=== PATIENT | female | born 1940 | race Caucasian/White ===

== ENCOUNTER → 2018-12-19 16:15 | Outpatient (CLI) | payer MEDICARE, SELFPAY ==
--- NOTE | 2018-12-19 16:30 | RAD_ITS ---
STUDY: X-RAY - ABDOMEN/PELVIS REASON FOR EXAM: Female, 78 years old. Fecal impaction TECHNIQUE: AP supine and upright views of the abdomen and pelvis. COMPARISON: None. FINDINGS: Normal visualized lung bases. Nondistended stomach and small bowel. Mild increase proximal colonic bowel gas and stool with a stool-filled left and distal colon. A ring of sutures present in the central lower pelvis consistent with rectosigmoid anastomosis. The anastomosis appears to be stool filled and approximately 2.7 cm in diameter. There is a no other bowel anastomosis in the right lower quadrant. Negative for hepatomegaly. Vascular calcifications. Normal soft tissue structures. Normal visualized osseous structures. RAD/Abd Inc Decub and/or Erect IMPRESSION: Mild increase proximal colonic bowel gas and stool with a stool-filled left in distal colon. There appears to be a rectosigmoid anastomosis which is stool-filled and approximately 2.7 cm in diameter. Additional anastomosis of the right lower quadrant. Electronically Signed: Rosetta Pa MD at 16:47 EDT , Service support ,
[2018-12-19 17:50] LABS: Absolute Lymphocyte Count 1.49 X10^3/ul (0.83-4.51); Absolute Neutrophil Count 3.6 X10^3/uL (2.0-7.7); Basophil# 0.02 X10^3/uL; Basophil% 0.3 % (0-1); Eosinophil# 0.11 X10^3/uL; Eosinophils% 1.9 % (0-5); Hematocrit 42.7 % (37-47); Lymphocyte # 1.49 X10^3/ul (4.0); Lymphocyte % 25.9 % (19-41); Mean Corp Hgb Conc 32.8 g/gl (32-36); Mean Corpuscular Volume 91.4 fL (81-99); Mean Platelet Vol. 9.7 fl (6.2-12.0); Monocyte# 0.52 X10^3/uL; Neutrophil % 62.6 % (47-70); Platelet Count 295 K/mm3 (150-450); RBC Distribution Width CV 14.4 % (11.6-14.6); Red Blood Count 4.67 M/mm3 (4.2-5.4); White Blood Count 5.8 K/mm3 (4.4-11.0)
[2018-12-19 17:58] LABS: POSITIVE COUNT NO; POSITIVE DIFFERENTIAL NO; POSITIVE MORPHOLOGY NO
[2018-12-19 17:59] LABS: Vitamin D,25 Hydroxy 13.6 ng/mL (29.95-100.01)
[2018-12-19 18:08] LABS: Albumin, Serum 3.6 g/dL (3.2-5.0); BUN 13 mg/dL (7-18); BUN/Creat Ratio 15.9 RATIO (10-20); Creatinine, Serum 0.82 mg/dL (0.55-1.02); EST Glomerular Filtration Rate 72 mL/min (>60); Est Glom Filt Rate - Afr Amer 87 mL/min (>60); Glucose 83 mg/dL (74-106); Protein, Total 7.6 g/dL (6.4-8.2)
[2018-12-19 18:09] LABS: ALB/GLOB Ratio 0.9 RATIO (0.9-2.4); AST(SGOT) 17 U/L (15-37); Alanine Aminotransfer ALT/SGPT 20 U/L (13-56); Alkaline Phosphatase 88 U/L (45-117); Anion Gap 7 (5-15); Calcium,Total 8.9 mg/dL (8.5-10.1); Chloride 104 mmol/L (98-107); Cholesterol 243 mg/dL (200); High Density Lipoprotein 68 mg/dL; Potassium 2.9 mmol/L (3.5-5.1); Sodium Level 138 mmol/L (136-145); Thyroid Stim Hormone (TSH) 4.16 uIU/mL (0.358-3.74); Triglycerides 130 mg/dL; Very Low Density Lipoprotein 26 mg/dL (5-40)
== END ==
PROVIDERS: Family Provider Family Medicine Geriatric Medicine; PCP Family Medicine Geriatric Medicine; Referring Provider Family Medicine Geriatric Medicine; Visit Provider Family Medicine Geriatric Medicine
DX: K56.41 Fecal impaction (principal); E55.9 Vitamin D deficiency, unspecified; E78.5 Hyperlipidemia, unspecified; R53.83 Other fatigue
CPT/HCPCS: 36415; 74019; 80053; 80061; 82306; 84443; 85025

== ENCOUNTER → 2018-12-27 11:11 | Outpatient (CLI) | payer MEDICARE, SELFPAY ==
[2018-12-27 13:48] LABS: Anion Gap 7 (5-15); BUN 12 mg/dL (7-18); BUN/Creat Ratio 12.6 RATIO (10-20); Calcium,Total 9.1 mg/dL (8.5-10.1); Chloride 105 mmol/L (98-107); Creatinine, Serum 0.96 mg/dL (0.55-1.02); EST Glomerular Filtration Rate 60 mL/min (>60); Est Glom Filt Rate - Afr Amer 72 mL/min (>60); Glucose 93 mg/dL (74-106); Potassium 3.6 mmol/L (3.5-5.1); Sodium Level 138 mmol/L (136-145)
== END ==
PROVIDERS: Family Provider Family Medicine Geriatric Medicine; PCP Family Medicine Geriatric Medicine; Visit Provider Family Medicine Geriatric Medicine
DX: E87.6 Hypokalemia (principal)
CPT/HCPCS: 36415; 80048

== ENCOUNTER → 2019-01-20 14:17 | Outpatient (CLI) | payer MEDICARE, SELFPAY ==
[2019-01-20 15:14] LABS: Thyroid Stim Hormone (TSH) 5.33 uIU/mL (0.358-3.74)
== END ==
PROVIDERS: Family Provider Family Medicine Geriatric Medicine; PCP Family Medicine Geriatric Medicine; Visit Provider Family Medicine Geriatric Medicine
DX: E03.9 Hypothyroidism, unspecified (principal)
CPT/HCPCS: 36415; 84443

== ENCOUNTER → 2019-01-30 12:14 | Outpatient (CLI) | payer MEDICARE, SELFPAY ==
--- NOTE | 2019-01-30 12:15 | BI_ITS ---
MAMMOGRAPHY - BILATERAL SCREENING REASON FOR EXAM: Female, 78 years old. Routine annual screening examination. PERTINENT HISTORY: Non-contributory. TECHNIQUE: Digital bilateral breast evangelist (3D mammographic acquisition) in the CC and MLO projections. 2-D mediolateral oblique (MLO) and craniocaudad (CC) views of both breasts were obtained. CAD: Full Field Digital Mammography with Computer Added Detection was performed. COMPARISON: None. Baseline examination. FINDINGS: Breast Composition: The breasts are heterogeneously dense, which may obscure small masses. 1 cm x 0.9 cm nodular density seen in the superior lateral retroareolar region of the right breast. Correlation with ultrasound is recommended. Small benign-appearing bilateral axillary lymph. No other significant abnormalities are identified. BI/SCREENING MAMM (CAD), BILAT IMPRESSION: 1 cm x 0.9 cm nodular density in the superior lateral retroareolar region of the right breast as described. Correlation with ultrasound is recommended. ASSESSMENT CATEGORY: BIRADS Category 0: Incomplete. Need additional imaging evaluation. A letter regarding these results will be sent to the patient by the facility within 30 days. Approximately 10% of breast cancers are not detected by mammography. A normal mammogram should not delay biopsy of a clinically suspicious abnormality. [id number] Electronically Signed: Patrice Houser, at 14:54 EDT , Service support ,
--- NOTE | 2019-01-30 12:22 | BD_ITS ---
STUDY: DUAL ENERGY X-RAY ABSORPTIOMETRY / DXA REASON FOR EXAM: Female, 78 years old. The patient is postmenopausal. Loss of height. TECHNIQUE: Bone Mineral Density (BMD) measurements of lumbar spine and bilateral hips were obtained. COMPARISON: None. FINDINGS: Lumbar Spine (L1-L4): g/cm2 (1.266) / T-score (0.8) / Z-score (2.7) Findings are suggestive of normal bone density with a low fracture risk. Left Femur Total: g/cm2 (1.151) / T-score (1.1) / Z-score (3.1) Left Femoral Neck: g/cm2 (1.061) / T-score (0.2) / Z-score (2.3) Right Femur Total: g/cm2 (1.104) / T-score (0.8) / Z-score (2.8) Right Femoral Neck: g/cm2 (0.973) / T-score (-0.5) / Z-score (1.7) BD/Dexa Bone Density Study IMPRESSION: The patient is considered normal as outlined below according to World Matt Organization (WHO) criteria with a low fracture risk. Reference Information: The T-score is the number of standard deviations above or below the standard which is normal for young adults at their peak bone mineral density. The World Health Organization (WHO) interprets the T-scores as follows: Above -1 Normal bone density Between -1 and -2.5 Osteopenia Equal to / or below -2.5 Osteoporosis As a practical clinical guideline, osteopenia may be graded as follows: Mild -1 through -1.5 Moderate -1.6 through -2.0 Severe -2.1 through -2.4 The Z-score is the number of standard deviations above or below age-matched controls. A Z-score of less than -1.5 would be considered abnormal. References: 1. NIH Osteoporosis and Related Bone Diseases http://www.osteo.org 2. International Society for Clinical Densitometry http://www.iscd.org 3. National Osteoporosis Foundation http://www.nof.org Electronically Signed: Patrice Houser, at 13:34 EDT , Service support ,
== END ==
PROVIDERS: Family Provider Family Medicine Geriatric Medicine; PCP Family Medicine Geriatric Medicine; Referring Provider Family Medicine Geriatric Medicine; Visit Provider Family Medicine Geriatric Medicine
DX: Z78.0 Asymptomatic menopausal state (principal); Z12.31 Encounter for screening mammogram for malignant neoplasm of breast
CPT/HCPCS: 77063; 77067; 77080

== ENCOUNTER → 2019-02-05 10:55 | Outpatient (CLI) | payer MEDICARE, SELFPAY ==
--- NOTE | 2019-02-05 10:57 | US_ITS ---
STUDY: ULTRASOUND BREAST - RIGHT REASON FOR EXAM: Female, 78 years old. Abnormal screening mammogram. TECHNIQUE: Axial and longitudinal images of the RIGHT breast were performed with a high resolution ultrasound transducer. COMPARISON: Comparison is made with prior mammogram dated January 30, 2019. FINDINGS: RIGHT Breast: The mammographic abnormality corresponds to a 1.1 cm x 1.1 cm x 0.9 cm slightly lobulated hypoechoic nodule at the 10:00 position of the breast at 2 cm from the nipple. Increased vascularity is seen. A biopsy is recommended. US/Breast Limited Unilateral IMPRESSION: 1.1 cm x 1.1 cm x 0.9 cm slightly lobulated hypoechoic nodule at the 10:00 position of the breast at 2 cm from nipple. Increased vascularity is seen. A biopsy is recommended. ASSESSMENT CATEGORY: BIRADS Category 4: Suspicious - Biopsy Should Be Considered. A letter regarding these results will be sent to the patient by the facility within 30 days. Electronically Signed: Patrice Houser, at 13:07 EDT , Service support ,
== END ==
PROVIDERS: Family Provider Family Medicine Geriatric Medicine; PCP Family Medicine Geriatric Medicine; Referring Provider Family Medicine Geriatric Medicine; Visit Provider Family Medicine Geriatric Medicine
DX: N63.10 Unspecified lump in the right breast, unspecified quadrant (principal)
CPT/HCPCS: 76642

== ENCOUNTER → 2019-02-14 10:57 | Outpatient (CLI) | payer MEDICARE, SELFPAY ==
--- NOTE | 2019-02-14 09:30 | BRBX_PTH ---
PATIENT: TRICIA GAN LOC: [facility] U#:[id number] AGE/SX: 85/F ROOM: RE02/14/[address]: Dr. Rajat Cavazos MD : 1940 BED: DIS: SPEC #: [id number] RECD: 02/14/19 10:10 STATUS: BHARGAV POLY #: [id number] JANINE: 02/14/19 09:[address]: Rajat Cavazos DEPT: SURGICAL PATHOLOGY RECD BY: Tonia Riggs ENTERED: 02/14/19 14:02 SP TYPE: BREAST BX OTHR DR: Dr. Winston Flower MD Tissues: Right breast, NOS Procedures: Surgery Specimen Level IV HEADER OPERATION: Ultrasound-guided right breast mammotome biopsy PRE-OP DIAGNOSIS: Abnormal mammogram TISSUE SUBMITTED: Right breast biopsy MICROSCOPIC DIAGNOSIS Right breast, ultrasound-guided mammotome core biopsy: Intraductal papilloma. Negative for atypia or malignancy. See comment. ROSARIO:tonio 02/17/19 COMMENT Correlation with clinical, radiologic findings and appropriate follow up are necessary. Case has been reviewed in consultation with Dr. Nelson who concurs with the above diagnosis. IDC:AM MICROSCOPIC DESCRIPTION Slides are reviewed. GROSS DESCRIPTION Received in fixative is one container labeled with the patient's name and designated right breast. The specimen consists of multiple elongated fragments of graf-yellow fibroadipose tissue that in aggregate measure 1 x 0.5 x 0.1 cm. The entire specimen is submitted in one cassette. / ROSARIO:tonio 02/14/19 TC:5 CPT: 53714
[2019-02-14 10:27] VITALS: BMI 25.4
== END ==
PROVIDERS: Family Provider Family Medicine Geriatric Medicine; PCP Family Medicine Geriatric Medicine; Referring Provider Surgery; Visit Provider Surgery
DX: R92.8 Other abnormal and inconclusive findings on diagnostic imaging of breast (principal)
CPT/HCPCS: 88305

== ENCOUNTER 2019-02-24 07:15 | Day surgery (SDC) | payer MEDICARE, SELFPAY ==
--- NOTE | 2019-02-20 02:27 | HP_ITS ---
Intake Vital Signs 02/20/19 Height 5 ft 10 in 02/20/19 Weight: 170 lb 02/20/19 Body Mass Index (BMI) 24.3 02/20/19 Blood Pressure 153/79 H 02/20/19 Blood Pressure Location Rt brachial 02/20/19 Blood Pressure Position Sitting 02/20/19 Respiratory Rate 14 02/20/19 Pulse Rate 80 02/20/19 Pulse Source Monitor 02/20/19 Temperature 98.2 F 02/20/19 Temperature Source Oral 02/20/19 Pulse Ox 100 02/20/19 Oxygen Delivery Method room air 02/20/19 Body Mass Index (BMI) 25.4 Intake Visit Reasons: PO Rt Breast Bx 02/14 City Editor Required: No Is patient in pain?: No Allergies Sulfa (Sulfonamide Antibiotics) Allergy (Severe, Verified 02/20/19 14:04) passes out Medications cholecalciferol (vitamin D3) 1,000 unit capsule 1,000 unit PO DAILY 02/11/19 [History Confirmed 02/20/19] levothyroxine 50 mcg capsule 50 mcg PO DAILY 02/11/19 [History Confirmed 02/20/19] multivitamin capsule 1 cap PO DAILY 02/11/19 [History Confirmed 02/20/19] potassium chloride ER 10 mEq capsule,extended release 10 meq PO DAILY 02/11/19 [History Confirmed 02/20/19] [facility] Medical History Thyroid disease (Acute) Abnormal mammogram of right breast (Acute) Surgical History Hx of right breast biopsy (Acute) History of left cataract surgery (Acute) History of tonsillectomy (Acute) History of colectomy (Acute) Family History Mother No problems noted. Father No problems noted. Social History Smoking Status: Never smoker alcohol intake: never substance use type: does not use HPI HPI HPI: TRICIA GAN, is a 78 F who presents to the office today for HPI HPI Surgical H&P: Yes HPI: TRICIA GAN, is a 78 F who presents to the office today for for follow-up from an ultrasound-guided hand-held mammotome breast biopsy completed on her right breast on 02/14/2019. This came back as an intraductal papilloma and was negative for atypia and malignancy. She herself is only noted minimal bruising and minimal discomfort. ROS General General: Yes fatigue and colon cancer; no weight change, appetite, breast cancer or weakness HEENT HEENT: Yes eye surgery; no difficulty swallowing, eye injury, swollen glands or hoarseness Endo Endocrine: Yes thyroid disease; no diabetes mellitus, thyroid cancer, Hair loss, heat intolerance or cold intolerance Skin Skin: No rash or changing moles Breast Breast: Yes left breast lump, abnormal mammogram and abnormal US; no right breast lump, nipple discharge, breast pain or breast enlargement Musc Musculoskeletal: No back problems, arthritis, rheumatoid arthritis, gout or joint pain Cardio Cardiovascular: No murmur, pacemaker, heart disease, atrial fibrillation, high blood pressure, heart attack, heart stent, palpitations, shortness of breat with exertion or chest pain Psych Psychiatric: No depression, anxiety or hearing voices Resp Respiratory: No shortness of breath, No sleep apnea, No cough, No COPD, No asthma, No emphysema, No wheezing Gastro Gastrointestinal: No abdominal pain, No nausea or vomiting, No diarrhea, Yes constipation, No blood in stool, No acid reflux, No hemorrhoids, No ulcers, No gallbladder problem, No black,tarry stools [place] Hematologic: No blood thinners, No blood disorders, No bleeding, No anemia, No blood clots Neuro Neurologic: No weakness Exam [facility] Head: normal to inspection, normocephalic, atraumatic Mouth: oropharynx normal, moist mucous membranes Eyes General: appearance normal, both eyes and all related structures Sclera: sclerae normal Neck Neck: trachea midline, no lymphadenopathy noted Neck mass: No Thyroid: thyroid normal Lymphatic: no lymphadenopathy noted Chest Breast inspection: normal inspection of the breasts Breast Palpation: No nipple discharge Other: Biopsy site on the right breast is clean without signs of infection. Resp Other: Respiratory Exam: Deferred Cardio Heart Sounds: no murmurs Other: Cardiac Exam: Deferred GI Other: GI Exam: Deferred Other: Rectal Exam: Deferred Extrem Other: Extremity Exam: Deferred Assessment & Plan Problems 1. Intraductal papilloma D36.9 Plan My plan is to perform a wire localization excisional breast biopsy on the patient.. We discussed the risks and benefits of the planned procedure. I have informed the patient that complications can occur including failure to complete the procedure. The patient had the opportunity to ask questions concerning the planned procedure. My staff has also explained the procedure to the patient in understandable terms and has given the patient printed material concerning the procedure. The patient freely consents to the procedure. Coding Level of Care Code Off vis,est,level 2 Diagnoses Intraductal papilloma D36.9 02/20/19 1428 <Electronically signed by Rajat Cavazos MD> Date Rajat Cavazos MD I have re-examined the patient. There are no clinical changes since date of exam.
[2019-02-20 14:09] VITALS: BMI 24.3
[2019-02-24] VITALS (7 sets, daily range): BP systolic 118–129; BP diastolic 56–74; PULSE 80–99; RESP 16–18; TEMP 35.9–36.5; O2SAT 95–99; BMI 25.9
--- NOTE | 2019-02-24 | BRBX_PTH ---
PATIENT: TRICIA GAN LOC: [facility] U#:[id number] AGE/SX: 78/F ROOM: RE02/24/[address]: Dr. Rajat Cavazos MD : 1940 BED: DIS: 02/24/2019 SPEC #: [id number] RECD: 02/24/19 10:18 STATUS: BHARGAV REQ #: [id number] JANINE: 02/24/19 00:[address]: Rajat Cavazos DEPT: SURGICAL PATHOLOGY RECD BY: Amador Tipton ENTERED: 02/24/19 10:18 SP TYPE: BREAST BX OTHR DR: Dr. Winston Flower MD Tissues: Right breast, NOS Procedures: Gen Path Consultation (on slides) Surgery Specimen Level IV HEADER OPERATION: Breast biopsy PRE-OP DIAGNOSIS: Intraductal papilloma TISSUE SUBMITTED: Right breast mass MICROSCOPIC DIAGNOSIS Right breast mass, excisional biopsy: Intraductal papilloma with infarction. Fibrocystic changes encompassing usual ductal hyperplasia, apocrine metaplasia, sclerosing adenosis with calcification and columnar cell alteration. See comment. CE:tonio 02/26/19 COMMENT Please see separate [facility] consult report ([id number]). MICROSCOPIC DESCRIPTION Slides are reviewed. GROSS DESCRIPTION Received in fixative is one container labeled with the patient's name and designated right breast mass. The specimen consists of an unoriented piece of fibroadipose tissue with needle localization measuring 4.5 x 4 x 2 cm. Sections reveal a graf, indurated nodular area measuring 1 cm in greatest dimension. Sections of the rest of the specimen reveal graf-yellow adipose cut surfaces mixed with graf-white fibrous areas. The entire specimen is submitted in 11 cassettes from one end to another end. / SJ:tonio 02/25/19 TC: 1 CPT: 80733
--- NOTE | 2019-02-24 08:15 | BI_ITS ---
SURGICAL BREAST SPECIMEN RADIOGRAPH CLINICAL: Document presence of tissue clip marker in biopsy specimen. FINDINGS: Specimen shows presence of tissue clip marker. Electronically Signed: Patrice Houser, at 11:01 EDT , Service support , BI/Breast Biopsy Specimen
[2019-02-24] MEDS: Cefazolin 2 GM in 0.9% Normal Saline 100 ML IV (09:11)
--- NOTE | 2019-02-24 09:22 | PCM.OPRPT ---
Problem List (1) Intraductal papilloma of right breast Status: Acute Report of Operation Date of Procedure: 02/24/19 Pre-Operative Diagnosis: Intraductal papilloma right breast Post-Operative Diagnosis: Same Surgery/Procedure Performed:: 1. Wire localization of intraductal papilloma right breast. 2. Excisional wire localization breast biopsy of intraductal papilloma Type of Anesthesia:: General Anesthesiologist: Abhishek Oates Description of Procedure: Patient was brought into the mammography unit. Placed in the supine position. Breast was brought down through the opening. A lateral to medial view was obtained. The clip was identified. ?15 degrees views were obtained. I targeted on the clip. I prepped the breast with Betadine. I injected 1% lidocaine plain. I placed the needle 5 mm past the clip. Patient was taken out standard mammograms were obtained and she was brought down to the operating room. The operating room under excellent general anesthetic the right breast was sterilely prepped and draped in usual fashion curvilinear incision was made in the upper outer quadrant of the breast. I dissected down using my guidewire as my guide I removed the intraductal papilloma sent this to be x-rayed the clip was then good placement in the intraductal papilloma removed. These electrocautery for good hemostasis. Brought the subcu together with 2-0 Vicryl. Deep dermal stitches of 3-0 Vicryl and then a running 4-0 Monocryl. Dermabond was applied. Sterile dressings were applied. The patient tolerated the procedure well. - Admit VTE Documentation VTE Present on Admission: No VTE Mechan Device Prophylaxis: SCD's VTE Pharm Prophylaxis ordered?: No Reason prophylaxis not ordered:: Treatment Not Indicated
--- NOTE | 2019-02-24 09:24 | DCINST_ITS ---
Discharge Diet: No Restrictions Discharge Activity: Return to Normal Activity May shower in (days): 3 Remove Dressing in (days):: 3 - Leave Dermabond in place. Allergies/Adverse Reactions: Allergies Sulfa (Sulfonamide Antibiotics) Allergy (Severe, Verified 02/21/19 14:47) passes out Medications to take at Discharge cholecalciferol (vitamin D3) 1,000 unit capsule 1,000 unit PO DAILY 02/11/19 levothyroxine 50 mcg capsule 50 mcg PO DAILY 02/11/19 potassium chloride ER 10 mEq capsule,extended release 20 meq PO DAILY 02/11/19 Folic Acid 1 mg PO DAILY 02/21/19 Multivit with Calcium,Iron,Min [One Daily Women's] 1 each PO DAILY 02/21/19 Thiamine HCl [Vitamin B-1] 100 mg PO DAILY 02/21/19 Primary Care Physician: Winston Flower Chi, MD [Primary Care Provider] - Test Results: Test results from this visit will be discussed in further detail at your follow- up appointment, if applicable. Please Follow Up With: Rajat Cavazos MD - [phone] When: Please call for an appointment to be seen in one week.
[2019-02-24] MEDS: Bupivacaine Mpf 0.5% 30 ML VIAL (09:40)
== END 2019-02-24 11:59 | disposition home or self-care (01) ==
LOC: SDC 07:17 → AC 07:18
PROVIDERS: Family Provider Family Medicine Geriatric Medicine; PCP Family Medicine Geriatric Medicine; Referring Provider Surgery; Visit Provider Surgery
PROC: (CPT 19125; principal; 2019-02-24 09:00)
DX: D24.1 Benign neoplasm of right breast (principal); N60.21 Fibroadenosis of right breast; E06.9 Thyroiditis, unspecified; Z90.49 Acquired absence of other specified parts of digestive tract; Z85.038 Personal history of other malignant neoplasm of large intestine; Z79.899 Other long term (current) drug therapy
CPT/HCPCS: 19125; 19281; 76098; 88305; 88325; J7120; J2405

== ENCOUNTER → 2019-03-04 14:41 | Outpatient (CLI) | payer MEDICARE, SELFPAY ==
[2019-02-24 07:31] VITALS: BMI 25.9
== END ==
PROVIDERS: Family Provider Family Medicine Geriatric Medicine; PCP Family Medicine Geriatric Medicine; Visit Provider Family Medicine Geriatric Medicine
DX: E03.9 Hypothyroidism, unspecified (principal)
CPT/HCPCS: 36415; 84443

== ENCOUNTER → 2019-03-20 09:51 | Outpatient (CLI) | payer MEDICARE, SELFPAY ==
[2019-02-24 07:31] VITALS: BMI 25.9
[2019-03-20 12:25] LABS: Absolute Lymphocyte Count 1.62 X10^3/ul (0.83-4.51); Absolute Neutrophil Count 2.8 X10^3/uL (2.0-7.7); Basophil# 0.03 X10^3/uL; Basophil% 0.6 % (0-1); Eosinophil# 0.21 X10^3/uL; Eosinophils% 4.1 % (0-5); Hematocrit 42.2 % (37-47); Hemoglobin 13.6 g/dl (12.0-15.0); Lymphocyte # 1.62 X10^3/ul (4.0); Lymphocyte % 31.5 % (19-41); Mean Corp Hgb Conc 32.2 g/gl (32-36); Mean Corpuscular Volume 86.8 fL (81-99); Mean Platelet Vol. 10.3 fl (6.2-12.0); Monocyte# 0.47 X10^3/uL; Monocyte% 9.1 % (0-10); Neutrophil % 54.5 % (47-70); Platelet Count 283 K/mm3 (150-450); RBC Distribution Width CV 14.8 % (11.6-14.6); RBC Distribution Width SD 46.6 fl (35.1-43.9); Red Blood Count 4.86 M/mm3 (4.2-5.4); White Blood Count 5.1 K/mm3 (4.4-11.0)
[2019-03-20 12:39] LABS: POSITIVE COUNT NO; POSITIVE DIFFERENTIAL NO; POSITIVE MORPHOLOGY NO
[2019-03-20 12:41] LABS: ALB/GLOB Ratio 0.9 RATIO (0.9-2.4); AST(SGOT) 16 U/L (15-37); Alanine Aminotransfer ALT/SGPT 18 U/L (13-56); Albumin, Serum 3.6 g/dL (3.2-5.0); Alkaline Phosphatase 86 U/L (45-117); Anion Gap 8 (5-15); BUN 12 mg/dL (7-18); BUN/Creat Ratio 12.1 RATIO (10-20); Calcium,Total 9.1 mg/dL (8.5-10.1); Chloride 108 mmol/L (98-107); Cholesterol 225 mg/dL (200); EST Glomerular Filtration Rate 57 mL/min (>60); Est Glom Filt Rate - Afr Amer 69 mL/min (>60); Globulin 4.2 g/dL (2.2-4.2); Glucose 100 mg/dL (74-106); High Density Lipoprotein 62 mg/dL; Potassium 3.6 mmol/L (3.5-5.1); Protein, Total 7.8 g/dL (6.4-8.2); Sodium Level 141 mmol/L (136-145); Thyroid Stim Hormone (TSH) 4.32 uIU/mL (0.358-3.74); Triglycerides 135 mg/dL; Very Low Density Lipoprotein 27 mg/dL (5-40)
[2019-03-20 12:42] LABS: Vitamin D,25 Hydroxy 22.4 ng/mL (29.95-100.01)
== END ==
PROVIDERS: Family Provider Family Medicine Geriatric Medicine; PCP Family Medicine Geriatric Medicine; Visit Provider Family Medicine Geriatric Medicine
DX: E55.9 Vitamin D deficiency, unspecified (principal); E78.5 Hyperlipidemia, unspecified; R53.83 Other fatigue
CPT/HCPCS: 36415; 80053; 80061; 82306; 84443; 85025

== ENCOUNTER → 2020-05-27 10:52 | Outpatient (CLI) | payer MEDICARE, SELFPAY ==
[2020-05-27 09:31] VITALS: BMI 25.9
[2020-05-27 11:51] LABS: Absolute Lymphocyte Count 1.44 X10^3/uL (0.83-4.51); Absolute Neutrophil Count 4.7 X10^3/uL (2.0-7.7); Basophil# 0.03 X10^3/uL; Basophil% 0.4 % (0-1); Eosinophil# 0.13 X10^3/uL; Eosinophils% 1.9 % (0-5); Hematocrit 43.8 % (37-47); Hemoglobin 13.2 g/dL (12.0-15.0); Lymphocyte # 1.44 X10^3/ul (4.0); Lymphocyte % 20.8 % (19-41); Mean Corp Hgb Conc 30.1 g/dL (32-36); Mean Corpuscular Hgb 26.7 pg (27.0-32.0); Mean Corpuscular Volume 88.7 fL (81-99); Mean Platelet Vol. 9.5 fl (6.2-12.0); Monocyte# 0.53 X10^3/uL; Monocyte% 7.7 % (0-10); NRBC Flagged by Analyzer 0 % (0-5); Neutrophil # 4.72 X10^3/uL (2.7-7.7); Neutrophil % 68.3 % (47-70); Platelet Count 331 K/mm3 (150-450); RBC Distribution Width CV 15.7 % (11.6-14.6); RBC Distribution Width SD 51.4 fl (35.1-43.9); Red Blood Count 4.94 M/mm3 (4.2-5.4); White Blood Count 6.9 K/mm3 (4.4-11.0)
[2020-05-27 12:21] LABS: AST(SGOT) 11 U/L (15-37); Alanine Aminotransfer ALT/SGPT 18 U/L (13-56); Albumin, Serum 3.8 g/dL (3.2-5.0); Alkaline Phosphatase 103 U/L (45-117); Anion Gap 5 (5-15); BUN 13 mg/dL (7-18); Calcium,Total 9.4 mg/dL (8.5-10.1); Chloride 107 mmol/L (98-107); Creatinine, Serum 0.86 mg/dL (0.55-1.02); EST Glomerular Filtration Rate 67 mL/min (>60); Est Glom Filt Rate - Afr Amer 81 mL/min (>60); Glucose 95 mg/dL (74-106); Potassium 4.1 mmol/L (3.5-5.1); Protein, Total 7.8 g/dL (6.4-8.2); Sodium Level 141 mmol/L (136-145); Thyroid Stim Hormone (TSH) 3.56 uIU/mL (0.358-3.74)
== END ==
PROVIDERS: PCP Internal Medicine; Visit Provider Internal Medicine
DX: E07.9 Disorder of thyroid, unspecified (principal); N28.9 Disorder of kidney and ureter, unspecified; T14.8XXA Other injury of unspecified body region, initial encounter; Z85.038 Personal history of other malignant neoplasm of large intestine; Z98.890 Other specified postprocedural states
CPT/HCPCS: 36415; 80053; 84443; 85025

== ENCOUNTER → 2020-06-16 12:54 | Outpatient (CLI) | payer MEDICARE, SELFPAY ==
[2020-05-27 09:31] VITALS: BMI 25.9
--- NOTE | 2020-06-16 12:55 | BI_ITS ---
MAMMOGRAPHY - BILATERAL SCREENING REASON FOR EXAM: Female, 80 years old. Routine annual screening examination. PERTINENT HISTORY: NO FM HX , 02-24-19 NL FOR EXC BX ( PT UNSURE WHAT WAS REMOVED), RT U/S BX WSA 02-14-19 FROM U/S DONE 02-05-19=SUSPICIOUS, P/H OF COLON CA 2012 W/ LYMPH NODE INVOLEMENT (CHEMO AND RAD TX, BILAT MOLES MARKED TECHNIQUE: Digital bilateral breast bridger (3D mammographic acquisition) in the CC and MLO projections. 2-D mediolateral oblique (MLO) and craniocaudad (CC) views of both breasts were obtained. CAD: Full Field Digital Mammography with Computer Added Detection was performed. COMPARISON: 02/24/2019 and 01/30/2019 FINDINGS: Breast Composition: The breasts are heterogeneously dense, which may obscure small masses. There are no dominant masses or suspicious calcifications. No other significant abnormalities are identified. BI/SCREEN MAMM (CAD) W/BRIDGER BILAT IMPRESSION: Stable bilateral screening mammogram. Yearly follow-up mammogram recommended. (A) ASSESSMENT CATEGORY: BIRADS Category 2: Benign. A letter regarding these results will be sent to the patient by the facility within 30 days. Approximately 10% of breast cancers are not detected by mammography. A normal mammogram should not delay biopsy of a clinically suspicious abnormality. [id number] Electronically Signed: Latoya Iglesias, at 14:14 EDT Tel , Service support ,
== END ==
PROVIDERS: PCP Internal Medicine; Referring Provider Internal Medicine; Visit Provider Internal Medicine
DX: Z12.31 Encounter for screening mammogram for malignant neoplasm of breast (principal)
CPT/HCPCS: 77063; 77067

== ENCOUNTER 2022-01-22 22:58 | Inpatient (IN) | payer MEDICARE, SELFPAY ==
[2022-01-22 23:00] VITALS: BP 142/74; PULSE 93; RESP 16; TEMP 36.4; O2SAT 96; BMI 22.9
[2022-01-22 23:42] LABS: Mucous, Urine 0 SEEN /hpf (<or=2+)
[2022-01-22 23:56] LABS: Color, Urine Yellow (Yellow); Glucose, Dipstick Normal (Normal); Ketone-Dipstick Negative (Negative); Leukocyte Esterase-Dipstick 500 /ul (Negative); Nitrite-Dipstick Positive (Negative); Occult Blood-Urine 25 /ul (Negative); Protein-Dipstick 30 mg/dl (Negative); Urine Bilirubin Dipstick Negative (Negative); Urine Clarity Cloudy (Clear); Urine Urobilinogen Normal (Normal)
[2022-01-23] VITALS (9 sets, daily range): BP systolic 124–163; BP diastolic 54–76; PULSE 78–92; RESP 15–20; TEMP 36.2–36.6; O2SAT 96–99; BMI 25.8
[2022-01-23 00:02] LABS: Absolute Lymphocyte Count 1.23 X10^3/uL (0.83-4.51); Absolute Neutrophil Count 4.1 X10^3/uL (2.0-7.7); Basophil# 0.04 X10^3/uL; Basophil% 0.7 % (0-1); Eosinophil# 0.05 X10^3/uL; Eosinophils% 0.9 % (0-5); Hematocrit 42.2 % (37-47); Hemoglobin 13.3 g/dL (12.0-15.0); Lymphocyte # 1.23 X10^3/ul (0.83-4.51); Mean Corp Hgb Conc 31.5 g/dL (32-36); Mean Corpuscular Hgb 27.9 pg (27.0-32.0); Mean Corpuscular Volume 88.5 fL (81-99); Mean Platelet Vol. 9.6 fl (6.2-12.0); Monocyte% 6.8 % (0-10); NRBC Flagged by Analyzer 0 % (0-5); Neutrophil # 4.07 X10^3/uL (2.7-7.7); Neutrophil % 69.4 % (47-70); Platelet Count 270 K/mm3 (150-450); RBC Distribution Width CV 15.4 % (11.6-14.6); Red Blood Count 4.77 M/mm3 (4.2-5.4); White Blood Count 5.9 K/mm3 (4.4-11.0)
--- NOTE | 2022-01-23 00:14 | EDS_ITS ---
HPI History of Present Illness Chief Complaint: Mental Health Informant: patient and legal guardian Narrative Narrative: History is from patient and the patient's nephew who is her legal power of staff attorney. This patient evidently lives independently. However she has had problems with alcohol use her entire life. He states its not uncommon that he would go over to see her and then 15 or 30 minutes later she may not recall that. Is always been unclear if this is due to alcohol or due to some dementia. However, she has never left her house or wandered. Today she evidently wandered to somebody else's house randomly. After the police arrived and got her name the people called the nephew because evidently they knew him and knew that the name was the same. That is how he arrived here. Patient's not sure what happened. She is awake. She is alert. She has no complaint. But her nephew says she is much less organized thought than normal. She seems much more confused than even her baseline. He has been talking with her about getting into a nursing facility. There is no report of trauma. PFSH [facility] Medical History unable to obtain Home Medications NK 01/22/22 [History Last Taken Unknown] Allergy/AdvReac Type Severity Reaction Status Date / Time No Known Allergies Allergy Verified 01/22/22 23:02 Social History Smoking Status: Unknown if ever smoked ROS ROS ED ROS Narrative Patient denies all symptoms but it sounds like her review of systems really is not relevant as she is not sure what happened and she is confused. Review of Systems ROS Unobtainable: due to mental condition and due to mental status Constitutional Constitutional ED: Reports fever(s) EXAM Physical Exam Const Vital Signs: 01/22/22 23:00 Temperature 97.6 F L Temperature Source Temporal Pulse Rate 93 Respiratory Rate 16 Blood Pressure 142/74 H Blood Pressure Mean 96 Pulse Ox 96 Oxygen Delivery Method Room Air Patient is here is a little bit dirty but she is otherwise not notably unkempt or dirty. Positive well nourished and well developed General Appearance ED: well developed HEENT Reports moist mucous membranes Eyes PERRL and EOMs intact bilaterally Neck supple Chest Wall inspection of chest normal Resp normal respiratory effort and clear to auscultation bilaterally Cardio regular rate and regular rhythm GI normal to inspection, nondistended, normoactive bowel sounds and non-tender Palpation: soft Back/Spine no CVA tenderness Neuro Neuro Narrative: Patient is oriented x1 at this time. However, when she came in she could not even say her name but she was able to write it. Sensorium / Orientation: alert Psych Attitude: No agitated Mood & Affect: Negative for anxious Skin no rashes or lesions noted MDM MDM MDM Narrative Medical decision making narrative: Patient's blood work showed essentially normal CBC. Electrolytes showed minimal changes and slight elevation of her creatinine. Urine is strongly positive for UTI. Its very cloudy. Has positive leukocyte Estrace positive nitrites and greater than 100 white cells. Tox is negative. Alcohol was elevated. Patient has acute confusion/delirium that is much more than her baseline. This is likely due to the UTI. She will be admitted. The nephew who is power of staff attorney would like to work on getting long-term placement because he feels she probably is not safe at home. Lab Data Attestation: I reviewed the patient's lab results. Labs: Laboratory Results - last 24 hr 01/22/22 01/22/22 01/22/22 23:27 23:27 23:32 WBC 5.9 RBC 4.77 Hgb 13.3 Hct 42.2 MCV 88.5 MCH 27.9 MCHC 31.5 L RDW Std Deviation 50.0 H RDW Coeff of Joey 15.4 H Plt Count 270 MPV 9.6 Immature Gran % (Auto) 1.200 H Neut % (Auto) 69.4 Lymph % (Auto) 21.0 [place] % (Auto) 6.8 Eos % (Auto) 0.9 Baso % (Auto) 0.7 Absolute Neuts (auto) 4.1 Absolute Lymphs (auto) 1.23 Nucleated RBC % 0 Sodium Potassium Chloride Carbon Dioxide Anion Gap BUN Creatinine Estim Creat Clear Calc Est GFR (MDRD) Af Amer Est GFR (MDRD) Non-Af BUN/Creatinine Ratio Glucose Calcium Urine Color Yellow Urine Clarity Cloudy Urine pH 6.0 Ur Specific [place] 1.010 Urine Protein 30 H Urine Glucose (UA) Normal Urine Ketones Negative Urine Occult Blood 25 H Urine Nitrite Positive H Urine Bilirubin Negative Urine Urobilinogen Normal Ur Leukocyte Esterase 500 H Urine RBC 0-5 SEEN Urine WBC >100 SEEN Ur Squamous Epith Cells 5-10 SEEN Urine Bacteria 2+ Urine Mucus 0 SEEN Urine Opiates Screen NEGATIVE Urine Methadone Screen NEGATIVE Ur Barbiturates Screen NEGATIVE Ur Phencyclidine Scrn NEGATIVE Ur Amphetamines Screen NEGATIVE MDMA (Ecstasy) Screen NEGATIVE U Benzodiazepines Scrn NEGATIVE Urine Cocaine Screen NEGATIVE U Cannabinoids Screen NEGATIVE Ur Drug Screen Comment Ethyl Alcohol 01/22/22 01/22/22 23:32 23:32 WBC RBC Hgb Hct MCV MCH MCHC RDW Std Deviation RDW Coeff of Joey Plt Count MPV Immature Gran % (Auto) Neut % (Auto) Lymph % (Auto) [place] % (Auto) Eos % (Auto) Baso % (Auto) Absolute Neuts (auto) Absolute Lymphs (auto) Nucleated RBC % Sodium 141 Potassium 3.4 L Chloride 108 H Carbon Dioxide 21.0 Anion Gap 12 BUN 15 Creatinine 1.04 H Estim Creat Clear Calc 45.10 Est GFR (MDRD) Af Amer 65 Est GFR (MDRD) Non-Af 54 L BUN/Creatinine Ratio 14.4 Glucose 115 H Calcium 9.0 Urine Color Urine Clarity Urine pH Ur Specific Ethan Urine Protein Urine Glucose (UA) Urine Ketones Urine Occult Blood Urine Nitrite Urine Bilirubin Urine Urobilinogen Ur Leukocyte Esterase Urine RBC Urine WBC Ur Squamous Epith Cells Urine Bacteria Urine Mucus Urine Opiates Screen Urine Methadone Screen Ur Barbiturates Screen Ur Phencyclidine Scrn Ur Amphetamines Screen MDMA (Ecstasy) Screen U Benzodiazepines Scrn Urine Cocaine Screen U Cannabinoids Screen Ur Drug Screen Comment Ethyl Alcohol 148.0 Radiography Diagnostic Testing: Clinical Impression(s) from Imaging Studies Brain CT 01/23/22 00:14 IMPRESSION: Chronic ischemic infarct left basal ganglia. Electronically Signed: Fernando Lomeli MD at 1:19 EDT , Discharge Plan Triage Chief Complaint: Mental Health ED Provider: Arturo Moon Dx/Rx/DC Orders Clinical Impression: Acute UTI, Delirium, History of alcoholism Prescriptions: No Action NK RF: 0 Primary Care Provider: NOT,DEFINED Referrals: NOT,DEFINED [Primary Care Provider] - Disposition Disposition: Acute Care [facility]
--- NOTE | 2022-01-23 00:14 | CT_ITS ---
STUDY: CT BRAIN WITHOUT CONTRAST REASON FOR EXAM: Female, 81 years old. confusion RADIATION DOSAGE (If Supplied By Facility): CTDIvol = ( 44.99 ) mGy, DLP = ( 846.73 ) mGycm TECHNIQUE: Transaxial CT imaging of the brain was performed without administration of intravenous contrast material. Individualized dose optimization techniques were used for this CT. COMPARISON: No relevant priors. FINDINGS: Normal soft tissue structures. Normal calvarium. Normal size ventricles and extra-axial spaces for the patient''s age. Normal white matter tracts of the cerebral hemispheres. Normal basal ganglia and thalami. Normal brainstem. Normal cerebellum. There is low-density area in the left basal ganglia consistent with a chronic ischemic infarct. There is no intracranial hemorrhage. There are no findings of an acute ischemic infarction. Normal visualized paranasal sinuses. CT/Brain/Head without Contrast IMPRESSION: Chronic ischemic infarct left basal ganglia. Electronically Signed: Fernando Lomeli MD at 1:19 EDT ,
[2022-01-23 00:15] LABS: Anion Gap 12 (5-15); BUN 15 mg/dL (7-18); BUN/Creat Ratio 14.4 RATIO (10-20); Chloride 108 mmol/L (98-107); Creatinine, Serum 1.04 mg/dL (0.55-1.02); EST Glomerular Filtration Rate 54 mL/min (>60); Est Glom Filt Rate - Afr Amer 65 mL/min (>60); Glucose 115 mg/dL (74-106); Potassium 3.4 mmol/L (3.5-5.1); Sodium Level 141 mmol/L (136-145)
[2022-01-23 00:23] LABS: Amphetamine Urine VISTA NEGATIVE (<1000 ng/mL); Barbiturate Urine VISTA NEGATIVE (< 200 ng/mL); Benzodiazepine Urine VISTA NEGATIVE (< 200 ng/mL); Cocaine Urine VISTA NEGATIVE (< 300 ng/mL); Ecstacy Urine VISTA NEGATIVE (< 500 ng/mL); Methadone Urine VISTA NEGATIVE (< 300 ng/mL); PCP Urine VISTA NEGATIVE (< 25 ng/mL); THC Urine VISTA NEGATIVE (< 50 ng/mL); Vista UDS pH Range 5
[2022-01-23 00:57] LABS: Bacteria 2+ /hpf (None Seen); Red Blood Cells-Urine 0-5 SEEN /hpf (0-5); Squamous Epithelial Cells - UA 5-10 SEEN /hpf (5-10); White Blood Cells >100 SEEN /hpf (0-5)
[2022-01-23] MEDS: Ceftriaxone 1 GM/50 ML BAG IV ×2 (01:25→23:15)
--- NOTE | 2022-01-23 01:51 | PCM.HP.STD ---
HPI - General General Date of Admission: 01/23/22 HPI Narrative TRICIA NEWMAN, is a 81 F with a significant history of encephalopathy and alcoholism who was brought by the police to the hospital because she was found at the front porch of somebody else's house. Reportedly patient's wandered into somebody's porch; pressed the bryant and sat down at the front porch. Because patient's was confused the police were called and patient was brought to the emergency department. The occupants whose house patient wandered to were able to figure out who patient's nephew who doubles as her POA was. Patient's nephew/POA was notified and he followed up to the emergency department. Of note patient lived by himself and has adult children who lives out of town/state are not involved in her care. Patient's nephew/POA who was at the bedside states patient is more confused than her baseline and is wondering whether patient is safe to continue living by herself. On presentation patient did not remember wandering to somebody's else porch; and the police ride to the hospital. Patient denies any urinary symptoms. She denies fever. She denies chills. She denies anorexia. [facility] Medical History Colon cancer Medical History unable to obtain Home Medications NK 01/22/22 [History Last Taken Unknown] Allergy/AdvReac Type Severity Reaction Status Date / Time No Known Allergies Allergy Verified 01/22/22 23:02 Family History Other Heart disease unable to obtain (Patient does not remember whether she has had any surgery. Her nephew who was at bedside also did not know.) Social History Smoking Status: Never smoker ROS ROS Narrative Pertinent positives and pertinent negatives as noted in HPI. All other systems were reviewed and are negative. Vital Signs Vital Signs Vital Signs: 01/22/22 23:00 Temperature 97.6 F L Temperature Source Temporal Pulse Rate 93 Respiratory Rate 16 Blood Pressure 142/74 H Blood Pressure Mean 96 Pulse Ox 96 Oxygen Delivery Method Room Air Weight Weight: 72.575 kg Body Mass Index (BMI) 22.9 Physical Exam Narrative Physical exam: General: Well-nourished, well-developed. Head: Normocephalic, atraumatic, no tenderness Eyes: Vision is grossly intact. EOMI ENT, no trauma, moist mucous membranes, no rhinorrhea Neck: Nontender, full range of motion, no spinal tenderness, deformities, step-off CVS: Regular rate and rhythm. S1-S2 present. No murmur, gallop or rub. Respiratory : clear to auscultation bilaterally, chest wall nontender, no wheezing Abdomen: Soft, nontender, nondistended, normal bowel sounds, no masses : Deferred Back: Nontender, no CVA tenderness, no midline spinal tenderness, deformities, step-offs Extremities: Nontender full range of motion, no trauma Skin: Normal color, no trauma, abrasions Neuro: Alert, knows that she is in the hospital. Unable to state the city, the state and the dates. Confused. Psychiatry: Normal mood. Normal affect. Not depressed. Not anxious. Results Lab / Micro Data Result Diagrams: 01/22/22 23:32 01/22/22 23:32 Labs: Laboratory Results - last 24 hr 01/22/22 23:27: Urine Opiates Screen NEGATIVE, Urine Methadone Screen NEGATIVE, Ur Barbiturates Screen NEGATIVE, Ur Phencyclidine Scrn NEGATIVE, Ur Amphetamines Screen NEGATIVE, MDMA (Ecstasy) Screen NEGATIVE, U Benzodiazepines Scrn NEGATIVE, Urine Cocaine Screen NEGATIVE, U Cannabinoids Screen NEGATIVE, Ur Drug Screen Comment 01/22/22 23:27: Urine Color Yellow, Urine Clarity Cloudy, Urine pH 6.0, Ur Specific [place] 1.010, Urine Protein 30 H, Urine Glucose (UA) Normal, Urine Ketones Negative, Urine Occult Blood 25 H, Urine Nitrite Positive H, Urine Bilirubin Negative, Urine Urobilinogen Normal, Ur Leukocyte Esterase 500 H, Urine RBC 0-5 SEEN, Urine WBC >100 SEEN, Ur Squamous Epith Cells 5-10 SEEN, Urine Bacteria 2+, Urine Mucus 0 SEEN 01/22/22 23:32: WBC 5.9, RBC 4.77, Hgb 13.3, Hct 42.2, MCV 88.5, MCH 27.9, MCHC 31.5 L, RDW Std Deviation 50.0 H, RDW Coeff of Joey 15.4 H, Plt Count 270, MPV 9.6, Immature Gran % (Auto) 1.200 H, Neut % (Auto) 69.4, Lymph % (Auto) 21.0, [place] % (Auto) 6.8, Eos % (Auto) 0.9, Baso % (Auto) 0.7, Absolute Neuts (auto) 4.1, Absolute Lymphs (auto) 1.23, Nucleated RBC % 0 01/22/22 23:32: Sodium 141, Potassium 3.4 L, Chloride 108 H, Carbon Dioxide 21.0, Anion Gap 12, BUN 15, Creatinine 1.04 H, Estim Creat Clear Calc 45.10, Est GFR (MDRD) Af Amer 65, Est GFR (MDRD) Non-Af 54 L, BUN/Creatinine Ratio 14.4, Glucose 115 H, Calcium 9.0 01/22/22 23:32: Ethyl Alcohol 148.0 Micro: Microbiology 01/22/22 23:38 Nasal Secretion SARS-CoV-2 Antigen (Rapid) - Final Radiology Impression Brain CT 01/23/22 00:14 IMPRESSION: Chronic ischemic infarct left basal ganglia. Electronically Signed: Fernando Lomeli MD at 1:19 EDT , Assessment & Plan Assessment/Plan (1) Acute UTI: (2) Encephalopathy acute: (3) Alcoholism: PLAN: Acute UTI Urinalysis on presentation was abnormal. Urine culture ordered at emergency department, follow. CBC showed normal white counts but with bandemia of 1.2%. Received ceftriaxone the emergency department and continued Trend CBC and BMP. Acute on chronic encephalopathy Chronic encephalopathy secondary to alcoholism versus dementia. Brain CT was visualized independently interpreted. And I agree with the radiologist interpretation. Acute encephalopathy likely infectious from UTI. Rapid COVID screen negative. Case management consult for disposition as family think the patient may not be to take care of himself at home and for which hospitalist agrees. Alcoholism Patient was placed on CIWA protocol with as needed Ativan.. Multivitamin; thiamine and folic acid ordered. Hypokalemia/elevated creatinine Patient noted to have mild hypokalemia potassium of 3.4. Noted to have mildly elevated creatinine. No previous records to compare with. Lactated Ringer's with potassium continued. Trend BMP. Elevated blood pressure Unclear whether patient has baseline hypertension or not. Will trend blood pressures.. As needed hydralazine IV ordered. DVT prophylaxis: Subcutaneous Lovenox ordered. Charges/Coding Visit Charges Inpatient E&M: 65162 Init Hosp L3
[2022-01-23] MEDS: Multivitamins,Therapeutic Tablet 1 TABLET PO (03:34)
[2022-01-23 07:30] LABS: Absolute Lymphocyte Count 1.56 X10^3/uL (0.83-4.51); Absolute Neutrophil Count 3.1 X10^3/uL (2.0-7.7); Basophil# 0.05 X10^3/uL; Basophil% 0.9 % (0-1); Eosinophils% 1.9 % (0-5); Hematocrit 41.7 % (37-47); Hemoglobin 13.3 g/dL (12.0-15.0); Lymphocyte # 1.56 X10^3/ul (0.83-4.51); Mean Corp Hgb Conc 31.9 g/dL (32-36); Mean Corpuscular Hgb 28.1 pg (27.0-32.0); Mean Corpuscular Volume 88.2 fL (81-99); Mean Platelet Vol. 9.6 fl (6.2-12.0); Monocyte# 0.51 X10^3/uL; Monocyte% 9.5 % (0-10); NRBC Flagged by Analyzer 0 % (0-5); Neutrophil # 3.11 X10^3/uL (2.7-7.7); Neutrophil % 57.8 % (47-70); Platelet Count 267 K/mm3 (150-450); RBC Distribution Width CV 15.7 % (11.6-14.6); RBC Distribution Width SD 50.7 fl (35.1-43.9); Red Blood Count 4.73 M/mm3 (4.2-5.4); White Blood Count 5.4 K/mm3 (4.4-11.0)
--- NOTE | 2022-01-23 07:47 | PN.HOSP_ITS ---
Subjective Subjective Follow-up for encephalopathy and alcoholism. Objective Data Objective Data Vital Signs: Vital Signs Temp Pulse Resp BP Pulse Ox 97.4 F L 78 18 161/76 H 98 01/23/22 05:51 01/23/22 05:51 01/23/22 05:51 01/23/22 05:51 01/23/22 05:51 Oxygen Delivery Method Room Air Weight: 174 lb 13.225 oz Body Mass Index (BMI) 25.8 Intake & Output: Intake and Output for Last 24 Hours 01/21/22 01/22/22 01/23/22 23:59 23:59 23:59 Intake Total 170 / 170 Output Total 200 / 200 Balance -30 / -30 Lab / Micro Data Result Diagrams: 01/23/22 06:35 01/23/22 06:35 Labs: Laboratory Results - last 24 hr 01/22/22 23:27: Urine Opiates Screen NEGATIVE, Urine Methadone Screen NEGATIVE, Ur Barbiturates Screen NEGATIVE, Ur Phencyclidine Scrn NEGATIVE, Ur Amphetamines Screen NEGATIVE, MDMA (Ecstasy) Screen NEGATIVE, U Benzodiazepines Scrn NEGATIVE, Urine Cocaine Screen NEGATIVE, U Cannabinoids Screen NEGATIVE, Ur Drug Screen Comment 01/22/22 23:27: Urine Color Yellow, Urine Clarity Cloudy, Urine pH 6.0, Ur Specific [place] 1.010, Urine Protein 30 H, Urine Glucose (UA) Normal, Urine Ketones Negative, Urine Occult Blood 25 H, Urine Nitrite Positive H, Urine Bilirubin Negative, Urine Urobilinogen Normal, Ur Leukocyte Esterase 500 H, Urine RBC 0-5 SEEN, Urine WBC >100 SEEN, Ur Squamous Epith Cells 5-10 SEEN, Urine Bacteria 2+, Urine Mucus 0 SEEN 01/22/22 23:32: WBC 5.9, RBC 4.77, Hgb 13.3, Hct 42.2, MCV 88.5, MCH 27.9, MCHC 31.5 L, RDW Std Deviation 50.0 H, RDW Coeff of Joey 15.4 H, Plt Count 270, MPV 9.6, Immature Gran % (Auto) 1.200 H, Neut % (Auto) 69.4, Lymph % (Auto) 21.0, [place] % (Auto) 6.8, Eos % (Auto) 0.9, Baso % (Auto) 0.7, Absolute Neuts (auto) 4.1, Absolute Lymphs (auto) 1.23, Nucleated RBC % 0 01/22/22 23:32: Sodium 141, Potassium 3.4 L, Chloride 108 H, Carbon Dioxide 21.0, Anion Gap 12, BUN 15, Creatinine 1.04 H, Estim Creat Clear Calc 45.10, Est GFR (MDRD) Af Amer 65, Est GFR (MDRD) Non-Af 54 L, BUN/Creatinine Ratio 14.4, Glucose 115 H, Calcium 9.0 01/22/22 23:32: Ethyl Alcohol 148.0 01/23/22 06:35: WBC 5.4, RBC 4.73, Hgb 13.3, Hct 41.7, MCV 88.2, MCH 28.1, MCHC 31.9 L, RDW Std Deviation 50.7 H, RDW Coeff of Joey 15.7 H, Plt Count 267, MPV 9.6, Immature Gran % (Auto) 0.900, Neut % (Auto) 57.8, Lymph % (Auto) 29.0, [place] % (Auto) 9.5, Eos % (Auto) 1.9, Baso % (Auto) 0.9, Absolute Neuts (auto) 3.1, Absolute Lymphs (auto) 1.56, Nucleated RBC % 0 Micro: Microbiology 01/22/22 23:38 Nasal Secretion SARS-CoV-2 Antigen (Rapid) - Final Radiography Diagnostic Testing: Radiology Impression Brain CT 01/23/22 00:14 IMPRESSION: Chronic ischemic infarct left basal ganglia. Electronically Signed: Fernando Lomeli MD at 1:19 EDT , Physical Exam Narrative Patient states she drinks intermittently once in 2 days vodka. She was hesitant and talking about her alcohol history but denies heavy binge drinking. She drinks vodka, 2-3 shots but unclear about the detail alcohol history. She is not having tremors or shaking. No nausea vomiting headache, hallucination or other symptoms of alcohol withdrawal. General: Alert, Oriented x3, Cooperative HEENT: Atraumatic, PERRLA, EOMI, Normocephalic Oral: No Gingival or Mucosal Lesions/ Ulcerations Neck: Supple, No JVD, Negative Carotid Bruits Lungs: Air entry diminished in bilateral lung bases. No crepitation/rhonchi Cardiovascular: Regular rate, Regular Rhythm, Normal S1, Normal S2, No murmurs Abdomen: Bowel Sounds Present, Soft, Non Tender, Non-Distended : No renal angle tenderness. No suprapubic tenderness. Extremities: No edema, Capillary Refill Less than 3 Seconds Skin: No rashes, No breakdown Musculoskeletal: No Tenderness to Palpation of Joints or Extremities Neurological: Cranial nerves II-XII grossly intact, DTR 2+/4 and Symmetrical, Neuro grossly intact Psych/Mental Status: Flat affect Assessment & Plan Assessment/Plan (1) Acute UTI: (2) Encephalopathy acute: (3) Alcoholism: PLAN: The patient was admitted for alcoholism encephalopathy. Acute UTI: UA LE 500, nitrite positive. WBC more than 100. Urine culture pending. Continue IV ceftriaxone. Acute on chronic encephalopathy Chronic encephalopathy secondary to alcoholism versus dementia. Acute encephalopathy more likely infectious encephalopathy due to UTI. Rapid COVID screen negative. Alcoholism Patient was placed on CIWA protocol with as needed Ativan.. Multivitamin; thiamine and folic acid Hypokalemia: Potassium level still low after replacement. Serum magnesium and phosphorus ordered. Continue replacing hypokalemia. Monitor BMP Hypertension, probably undiagnosed: Patient blood pressure has been high, systolic in 160s. start on lisinopril DVT prophylaxis: Subcutaneous Lovenox ordered.
[2022-01-23 08:06] LABS: AST(SGOT) 20 U/L (15-37); Alanine Aminotransfer ALT/SGPT 18 U/L (13-56); Albumin, Serum 3.6 g/dL (3.2-5.0); Alkaline Phosphatase 65 U/L (45-117); Anion Gap 13 (5-15); BUN 11 mg/dL (7-18); BUN/Creat Ratio 14.7 RATIO (10-20); Chloride 107 mmol/L (98-107); Creatinine, Serum 0.75 mg/dL (0.55-1.02); EST Glomerular Filtration Rate 79 mL/min (>60); Est Glom Filt Rate - Afr Amer 95 mL/min (>60); Estimated Creatinine Clearance 45.33 ml/min; Globulin 3.7 g/dL (2.2-4.2); Glucose 87 mg/dL (74-106); Potassium 3.4 mmol/L (3.5-5.1); Protein, Total 7.3 g/dL (6.4-8.2); Sodium Level 141 mmol/L (136-145)
[2022-01-23] MEDS: Enoxaparin 40 MG/0.4 ML Syringe SC (09:35)
[2022-01-23] MEDS: Folic Acid 1 MG Tablet PO (09:35)
[2022-01-23] MEDS: Thiamine Hydrochloride 100 MG Tablet PO (09:35)
--- NOTE | 2022-01-23 09:38 | CASEMGMT ---
RN told ANTONETTE that patient's nephew would like a call regarding discharge planning. ANTONETTE called patient's nephew, Sue. ANTONETTE introduced self and role at [facility]. Pat said patient has always been a functional alcoholic. Patient has 2 kids who do not want anything to do with her. Patient has lived in [place] now for 3 years. Per Pat patient has been having memory issues and he feels it is time patient go to a SNF or assisted living. Pat asked for some guidance. Patient does have Medicare and Pat will bring her insurance cards. Patient has about $11,700 in the bank and she gets $1900 per month from Social Security. ANTONETTE explained that if there is a skilled need we may be able to skill her at a fpc. ANTONETTE explained what being skilled means. However, if we cannot find a way to skill patient then she would have to private pay and/or apply for Medicaid. ANTONETTE explained that most of the facilities want money up front. Some want 2 weeks and some want a month up front. ANTONETTE told Pat SW would need at least 3 facilities he would be okay with and then ANTONETTE will work on referrals. ANTONETTE told Pat, ANTONETTE has a list of facilities. Pat said his choices would be: [facility], [facility], and [facility]. ANTONETTE told Pat once therapy sees patient ANTONETTE can work on referrals and update him when SW has more information. ANTONETTE did obtain patient's address and phone number and put them in the computer. Lizzeth MATTA
--- NOTE | 2022-01-23 10:59 | CASEMGMT ---
Chyna Pérez, patient's nephew's came to the hospital. She provided patient's health insurance cards and Healthcare Power of Building Manager and Durable Power of Building Manager. ANTONETTE let her know SW will work on referrals and update them when SW has updates. ANTONETTE did fax referral to [facility] and also called [facility] leaving a message regarding referral. Lizzeth Aguila CLINICAL DATA ASSOCIATE [employer]
--- NOTE | 2022-01-23 15:07 | CASEMGMT ---
ANTONETTE received a call from Rose at [facility] and they can accept patient. Rose is going to try and get insurance authorization. Patient will private pay if insurance denies skilled. ANTONETTE called patient's nephew, Sue and let him know above. He is in agreement if patient is denied by insurance to go private pay. ANTONETTE will let him know when ANTONETTE hears something. Plan: [facility] pending insurance approval. Lizzeth Aguila SENIOR SOFTWARE ARCHITECT SIGRID
[2022-01-23] MEDS: Potassium Chloride Oral Tablet 20 MEQ 40 MEQ PO (15:54)
[2022-01-23] MEDS: Lisinopril 10 MG Tablet PO (15:54)
[2022-01-23 17:15] LABS: Magnesium 2.5 mg/dL (1.6-2.6)
--- NOTE | 2022-01-23 18:27 | NURSING ---
Reviewed charting with Nhung Duran RN
[2022-01-24 00:39] VITALS: BP 151/71; PULSE 76; RESP 18; TEMP 36.7; O2SAT 97
[2022-01-24 04:00] VITALS: BP 150/74; PULSE 85; RESP 18; TEMP 36.5; O2SAT 97
[2022-01-24 06:58] VITALS: O2SAT 97
[2022-01-24 09:05] VITALS: BP 93/65; PULSE 88; RESP 18; TEMP 36.2; O2SAT 98
[2022-01-24] MEDS: Enoxaparin 40 MG/0.4 ML Syringe SC (09:08)
[2022-01-24] MEDS: Folic Acid 1 MG Tablet PO (09:08)
[2022-01-24] MEDS: Potassium Chloride Oral Tablet 20 MEQ 40 MEQ PO (09:08)
[2022-01-24] MEDS: Thiamine Hydrochloride 100 MG Tablet PO (09:08)
[2022-01-24 15:05] VITALS: BP 122/64; PULSE 88; RESP 16; TEMP 36.3; O2SAT 100
--- NOTE | 2022-01-24 15:25 | CASEMGMT ---
[facility] and [facility] would like to do a peer to peer. Phone number is [phone] option 5. Auth. ID number is [id number]. ANTONETTE passed along this information to Dr Overton. Lizzeth MATTA
--- NOTE | 2022-01-24 15:35 | PCM.PN.HOSP ---
Subjective Subjective Follow-up for encephalopathy and alcoholism. Patient was found wandering in the neighborhood. Objective Data Objective Data Vital Signs: Vital Signs Temp Pulse Resp BP Pulse Ox 97.3 F L 88 16 122/64 H 100 01/24/22 15:05 01/24/22 15:05 01/24/22 15:05 01/24/22 15:05 01/24/22 15:05 Oxygen Delivery Method Room Air Weight: 174 lb 13.225 oz Body Mass Index (BMI) 25.8 Intake & Output: Intake and Output for Last 24 Hours 01/22/22 01/23/22 01/24/22 23:59 23:59 23:59 Intake Total 2018.75 / 2018.75 480 / 480 Output Total 200 / 200 Balance 1818.75 / 1818.75 480 / 480 Lab / Micro Data Result Diagrams: 01/23/22 06:35 01/23/22 06:35 Labs: Laboratory Results - last 24 hr 01/23/22 06:35: Phosphorus Cancelled, Magnesium Cancelled 01/23/22 06:35: Phosphorus 3.0, Magnesium 2.5 Micro: Microbiology 01/22/22 23:27 Urine, Clean Catch Urine Culture - Preliminary GNR lactose in service education teacher 01/22/22 23:38 Nasal Secretion SARS-CoV-2 Antigen (Rapid) - Final Physical Exam Narrative Patient states she drinks intermittently once in 2 days vodka. She was found wandering in the neighborhood that sitting on someone's porch. Patient was brought by the police to the ED. She was hesitant and talking about her alcohol history but denies heavy binge drinking. Does not have alcohol withdrawal symptoms. General: Alert, Oriented x3, Cooperative HEENT: Atraumatic, PERRLA, EOMI, Normocephalic Oral: No Gingival or Mucosal Lesions/ Ulcerations Neck: Supple, No JVD, Negative Carotid Bruits Lungs: Air entry diminished in bilateral lung bases. No crepitation/rhonchi Cardiovascular: Regular rate, Regular Rhythm, Normal S1, Normal S2, No murmurs Abdomen: Bowel Sounds Present, Soft, Non Tender, Non-Distended : No renal angle tenderness. No suprapubic tenderness. Extremities: No edema, Capillary Refill Less than 3 Seconds Skin: No rashes, No breakdown Musculoskeletal: No Tenderness to Palpation of Joints or Extremities Neurological: Cranial nerves II-XII grossly intact, DTR 2+/4 and Symmetrical, Neuro grossly intact Psych/Mental Status: Flat affect Assessment & Plan Assessment/Plan (1) Acute UTI: (2) Encephalopathy acute: (3) Alcoholism: PLAN: The patient was admitted for alcoholism encephalopathy. Acute UTI: UA LE 500, nitrite positive. WBC more than 100. Continue IV ceftriaxone. Preliminary urine culture shows gram-negative mars lactose in service education teacher more than 100,000 colonies. Acute on chronic encephalopathy: Chronic encephalopathy secondary to alcoholism versus dementia. Acute encephalopathy more likely infectious/encephalopathy due to UTI or etiology unclear. She might have ongoing dementia which might have worsened recently. I talked to [employer] peer to peer review, Dr. Moss and she denied for correction home. She might qualify for different discharge plan like halfway care or dementia care unit. Rapid COVID screen negative. Alcoholism Patient was placed on CIWA protocol with as needed Ativan.. Multivitamin; thiamine and folic acid Hypokalemia: Potassium level still low after replacement. Serum magnesium and phosphorus ordered. Continue replacing hypokalemia. Monitor BMP Hypertension, probably undiagnosed: Patient blood pressure has been high, systolic in 160s. start on lisinopril DVT prophylaxis: Subcutaneous Lovenox ordered. Charges/Coding Visit Charges Inpatient E&M: 20030 Subs Hosp L2
--- NOTE | 2022-01-24 15:55 | NURSING ---
Reviewed charting with Nhung Duran RN
--- NOTE | 2022-01-24 16:00 | CASEMGMT ---
[facility] physician did peer to peer and insurance is still denying skilled for patient. ANTONETTE called Rose at [facility] and notified her. Rose was in agreement with d/c tomorrow. Patient will be private pay and they do not require any money up front. ANTONETTE called patient's nephew Nura and let him know this information. Nura asked if they will transport. ANTONETTE told Nura that SW will leave that up to him, but SW can arrange transport if not. ANTONETTE told him SW will talk with him tomorrow. Plan: d/c to [facility] under intermediate level of care tomorrow. Lizzeth Aguila BACKGROUND CHECK COORDINATOR SIGRID
[2022-01-24] MEDS: Ceftriaxone 1 GM/50 ML BAG IV (21:13)
[2022-01-24] MEDS: 0.9% Saline Lock 10 ML Syringe IV (21:13)
[2022-01-24 21:15] VITALS: BP 144/67; PULSE 84; RESP 12; TEMP 36.8; O2SAT 100
[2022-01-25 03:10] VITALS: BP 134/63; PULSE 83; RESP 14; TEMP 36.4; O2SAT 97
[2022-01-25 07:32] VITALS: O2SAT 98
[2022-01-25] MEDS: Folic Acid 1 MG Tablet PO (09:39)
[2022-01-25] MEDS: Thiamine Hydrochloride 100 MG Tablet PO (09:39)
[2022-01-25] MEDS: Enoxaparin 40 MG/0.4 ML Syringe SC (09:40)
[2022-01-25] MEDS: Potassium Chloride Oral Tablet 20 MEQ 40 MEQ PO (09:40)
[2022-01-25] MEDS: Lisinopril 10 MG Tablet PO (09:41)
[2022-01-25 09:45] VITALS: BP 106/56; PULSE 95; RESP 16; TEMP 36.7; O2SAT 98
--- NOTE | 2022-01-25 10:42 | PCM.TXEXTCAR ---
Diet 01/23/22 02:44 Diet: Regular - General Food consistency:: Regular Liquid Consistency:: Regular/Thin Is pt able to select menu?: No Routine Orders/Code Status Suppository Type: Dulcolax 10mg Suppository Frequency: Daily PRN Code Status: DNRCC-A Therapies Weight Bearing: Weight bearing as tolerated Extremity Affected:: Bilateral Lower Physical Therapy: Eval and Treat Occupational Therapy: Eval and Treat Speech Therapy: Eval and Treat Problem/Diagnosis (1) Acute UTI: Status: Acute (2) Encephalopathy acute: Status: Acute (3) Alcoholism: Status: Acute Allergies/Procedures Done in Hospital Allergies No Known Allergies Allergy (Verified 01/22/22 23:02) Type of Care/Length of Stay Estimated LOS: Convalescent Care Less Than 30 days Type of Care Needed: Intermediate Rehab Potential: Fair Prognosis: Fair Additional Orders/Day of Discharge Day of Discharge: 01/25/22 Dietary and Speech Recommendations Dietitian Recommendations/Changes: Continue regular diet as ordered. ONS as needed if PO fails at meals. Discharge Plan Admission Admit Date/Time: 01/23/22 01:42 Primary Reason for Your Visit: Encephalopathy with history of dementia Attending Provider: Bryson Overton Consulting Providers: Russell Lynne Instructions Additional Instructions / Restrictions: Patient needs to establish PCP. Follow-up in 2 weeks. Discharge Orders/Prescriptions Prescriptions: New acetaminophen [Tylenol] 325 mg Tablet 650 mg PO Q6H PRN PRN (Reason: Pain Score 1-10/Temp > 100.7 F) Qty: 0 RF: 0 folic acid 1 mg Tablet 1 mg PO BREAKFAST Qty: 0 RF: 0 sennosides-docusate sodium [Stool Softener-Stimulant Laxat] 8.6-50 mg Tablet 2 tab PO BID PRN PRN (Reason: Constipation) Qty: 0 RF: 0 thiamine HCl (vitamin B1) [Vitamin B-1] 100 mg Tablet 100 mg PO BREAKFAST Qty: 0 RF: 0 lisinopril 10 mg Tablet 5 mg PO DAILY Qty: 30 RF: 0 potassium chloride [Klor-Con M20] 20 mEq Tablet,Er Particles/Crystals 40 meq PO DAILYCM Qty: 10 RF: 0 cefadroxil 500 mg capsule 500 mg PO BID Qty: 10 RF: 0 Referrals / Follow Up: NOT,DEFINED [NON-STAFF] - Disposition Disposition (needs filled in before D/C Order can be placed): NonSkilled NH/Intermed Care
--- NOTE | 2022-01-25 13:57 | CASEMGMT ---
ANTONETTE called patient's nephew Sue and let him know the plan is still for patient to go to [facility] today. ANTONETTE let Pat know SW does not have d/c paperwork yet. Pat and his would like ANTONETTE to arrange transportation. ANTONETTE told Pat SW will do this and let him know a time when one has been arranged. ANTONETTE also let [place] know the plan is for patient to come today. Lizzeth Aguila INSURANCE VERIFIER SIGRID
--- NOTE | 2022-01-25 14:48 | DS.PCM_ITS ---
Providers Date of Admission: 01/23/22 Date of Discharge: 01/25/22 Reason For Visit: acute infectious encephalopathy Diagnosis Discharge Diagnosis (1) Acute UTI: Status: Acute Code(s): N39.0 - Urinary tract infection, site not specified (2) Encephalopathy acute: Status: Acute Code(s): G93.40 - Encephalopathy, unspecified (3) Alcoholism: Status: Acute Code(s): F10.20 - Alcohol dependence, uncomplicated Medications at Discharge Home Medications acetaminophen [Tylenol] 650 mg PO Q6H PRN PRN #0 tab 01/25/22 cefadroxil 500 mg PO BID #10 cap 01/25/22 folic acid 1 mg PO BREAKFAST #0 tab 01/25/22 lisinopril 5 mg PO DAILY #30 tab 01/25/22 potassium chloride [Klor-Con M20] 40 meq PO DAILYCM #10 tab 01/25/22 sennosides-docusate sodium [Stool Softener-Stimulant Laxat] 2 tab PO BID PRN PRN #0 tab 01/25/22 thiamine HCl (vitamin B1) [Vitamin B-1] 100 mg PO BREAKFAST #0 tab 01/25/22 Hospital Course Summary of Care Provided Hospital Course: The patient was admitted for has a neighbor found her wandering and sitting on someone else's property. [facility] with history of chronic alcohol use drinks 2 vodka every other day or 1 in 3 days. Acute UTI: UA LE 500, nitrite positive. WBC more than 100. Continue IV ceftriaxone. Urine culture shows E. coli more than 100,000 colonies. Patient is discharged on cefadroxil to complete a 7 days of antibiotic Acute on chronic encephalopathy: Chronic encephalopathy secondary to chronic chronic alcoholism versus dementia. Acute encephalopathy more likely infectious/encephalopathy due to UTI or etiology unclear. She might have ongoing dementia which might have worsened recently. I talked to [facility] peer to peer review, Dr. Moss, authorization ID [id number] and she denied for [facility] home. She might qualify for different discharge plan like fdc care or dementia care unit. Patient is being discharged to long-term as self-pay. Rapid COVID screen negative. Alcoholism Patient was placed on CIWA protocol with as needed Ativan.. Multivitamin; thiamine and folic acid Hypokalemia: Potassium level still low after replacement. Serum magnesium and phosphorus ordered. Continue replacing hypokalemia. Monitor BMP Hypertension, probably undiagnosed: Patient blood pressure has been high, systolic in 160s. start on lisinopril DVT prophylaxis: Subcutaneous Lovenox ordered. Discharge medication reconciliation done. Discharge follow-up instructions completed. Discharge process discussed with the patient and all questions were answered to patient's satisfaction. Total time spent, exact 35 minutes on discharge meds reconciliation, examination, coordination of care with nurses and ancillary staff, review of imaging and blood test and discussion with the patient on follow-up instructions. Physical Exam Narrative Seen and examined on the day of discharge. I think patient has longstanding dementia, amnesia. She does not remember her age, date of . Does not member the ER.She was found wandering in the neighborhood that sitting on someone's porch. Patient was brought by the police to the ED. She was hesitant and talking about her alcohol history but denies heavy binge d rinking probably she does not remember/amnesia. Does not have alcohol withdrawal symptoms. General: Alert, Oriented x3, Cooperative HEENT: Atraumatic, PERRLA, EOMI, Normocephalic Oral: No Gingival or Mucosal Lesions/ Ulcerations Neck: Supple, No JVD, Negative Carotid Bruits Lungs: Air entry diminished in bilateral lung bases. No crepitation/rhonchi Cardiovascular: Regular rate, Regular Rhythm, Normal S1, Normal S2, No murmurs Abdomen: Bowel Sounds Present, Soft, Non Tender, Non-Distended : No renal angle tenderness. No suprapubic tenderness. Extremities: No edema, Capillary Refill Less than 3 Seconds Skin: No rashes, No breakdown Musculoskeletal: No Tenderness to Palpation of Joints or Extremities Neurological: Cranial nerves II-XII grossly intact, DTR 2+/4 and Symmetrical, Neuro grossly intact Psych/Mental Status: Flat affect Weight / BMI Weight Weight: 174 lb 13.225 oz Body Mass Index (BMI) 25.8 ABG / Lab / Microbiology Data Result Diagrams: 01/23/22 06:35 01/23/22 06:35 Microbiology: Microbiology 01/22/22 23:27 Urine, Clean Catch Urine Culture - Final Escherichia coli 01/22/22 23:38 Nasal Secretion SARS-CoV-2 Antigen (Rapid) - Final Meaningful Use Info Meaningful Use Diagnoses (Choose all that apply): None applicable Discharge Plan Admission Admit Date/Time: 01/23/22 01:42 Primary Reason for Your Visit: Encephalopathy with history of dementia Attending Provider: Bryson Overton Consulting Providers: Russell Lynne Instructions Additional Instructions / Restrictions: Patient needs to establish PCP. Follow-up in 2 weeks. Discharge Orders/Prescriptions Prescriptions: New acetaminophen [Tylenol] 325 mg Tablet 650 mg PO Q6H PRN PRN (Reason: Pain Score 1-10/Temp > 100.7 F) Qty: 0 RF: 0 folic acid 1 mg Tablet 1 mg PO BREAKFAST Qty: 0 RF: 0 sennosides-docusate sodium [Stool Softener-Stimulant Laxat] 8.6-50 mg Tablet 2 tab PO BID PRN PRN (Reason: Constipation) Qty: 0 RF: 0 thiamine HCl (vitamin B1) [Vitamin B-1] 100 mg Tablet 100 mg PO BREAKFAST Qty: 0 RF: 0 lisinopril 10 mg Tablet 5 mg PO DAILY Qty: 30 RF: 0 potassium chloride [Klor-Con M20] 20 mEq Tablet,Er Particles/Crystals 40 meq PO DAILYCM Qty: 10 RF: 0 cefadroxil 500 mg capsule 500 mg PO BID Qty: 10 RF: 0 Referrals / Follow Up: NOT,DEFINED [NON-STAFF] - Disposition Disposition (needs filled in before D/C Order can be placed): NonSkilled NH/Intermed Care Charges/Coding Visit Charges Inpatient E&M: 20388 Disch Hosp
--- NOTE | 2022-01-25 15:44 | CASEMGMT ---
ANTONETTE arranged for patient to get picked up at 5p via cot. ANTONETTE faxed orders, COVID test, and picker and sorter load and unload time to [facility]. ANTONETTE notified RN, legal secretary receptionist, and patient's nephew Sue. ANTONETTE also called Tucker at [facility] and notified her of picker and sorter load and unload time. 7000 completed on HENS. All in agreement with discharge plan. Plan: d/c to [facility] under intermediate level of care on a convalescent stay. Physicians will transport via cot. Lizzeth Aguila KILN FIRERFelipe MATTA
[2022-01-25 15:45] VITALS: BP 117/74; PULSE 87; RESP 16; TEMP 36.6; O2SAT 100
--- NOTE | 2022-01-25 16:01 | NURSING ---
Report called to NICK Salazar at [facility]. Patient to be picked up at 1700.
== END 2022-01-25 17:14 | disposition intermediate care facility (04) | DRG 690 ==
LOC: ED 01-23 01:48 → PCU 01-23 02:00
PROVIDERS: Admitting Provider Hospitalist; Emergency Provider Emergency Medicine; Visit Provider Internal Medicine
DX: N39.0 Urinary tract infection, site not specified (principal); G93.49 Other encephalopathy; F03.91 Unspecified dementia, unspecified severity, with behavioral disturbance; F10.20 Alcohol dependence, uncomplicated; E87.6 Hypokalemia; B96.20 Unspecified Escherichia coli [E. coli] as the cause of diseases classified elsewhere; I10 Essential (primary) hypertension; Y90.6 Blood alcohol level of 120-199 mg/100 ml; Z91.83 Wandering in diseases classified elsewhere
CPT/HCPCS: 36415; 70450; 80048; 80053; 80307; 81001; 82077; 83735; 84100; 85025; 87077; 87086; 87088; 87186; 87426; 87811; 97110; 97162; 97166; 97530; 97535; 99283; J7050; J7120; A4216

== ENCOUNTER → 2022-01-22 | Emergency (ER) | payer MEDICARE, SELFPAY | END | disposition home or self-care (01) | PROVIDERS: Emergency Provider Emergency Medicine; PCP Internal Medicine; Visit Provider Emergency Medicine | DX: Z00.00 Encounter for general adult medical examination without abnormal findings (principal) ==

== ENCOUNTER → 2022-01-30 | Outpatient (REF) | payer MEDICARE, SELFPAY ==
[2022-01-30 09:28] LABS: Hematocrit 38.9 % (37-47); Hemoglobin 12.4 g/dL (12.0-15.0); Mean Corp Hgb Conc 31.9 g/dL (32-36); Mean Corpuscular Hgb 28.6 pg (27.0-32.0); Mean Corpuscular Volume 89.6 fL (81-99); Mean Platelet Vol. 9.9 fl (6.2-12.0); Platelet Count 266 K/mm3 (150-450); RBC Distribution Width CV 15.7 % (11.6-14.6); RBC Distribution Width SD 51.9 fl (35.1-43.9); Red Blood Count 4.34 M/mm3 (4.2-5.4); White Blood Count 5.2 K/mm3 (4.4-11.0)
[2022-01-30 09:57] LABS: Anion Gap 4 (5-15); BUN 14 mg/dL (7-18); BUN/Creat Ratio 18.1 RATIO (10-20); Calcium,Total 8.6 mg/dL (8.5-10.1); Chloride 111 mmol/L (98-107); Creatinine, Serum 0.77 mg/dL (0.55-1.02); EST Glomerular Filtration Rate 76 mL/min (>60); Est Glom Filt Rate - Afr Amer 92 mL/min (>60); Glucose 85 mg/dL (74-106); Potassium 4.2 mmol/L (3.5-5.1); Sodium Level 141 mmol/L (136-145)
== END | disposition home or self-care (01) ==
LOC: OLS.WHLTCC 05:00
PROVIDERS: PCP Internal Medicine; Referring Provider Family Medicine; Visit Provider Family Medicine
DX: G93.41 Metabolic encephalopathy (principal); F10.20 Alcohol dependence, uncomplicated; N39.0 Urinary tract infection, site not specified; M62.81 Muscle weakness (generalized); R26.2 Difficulty in walking, not elsewhere classified
CPT/HCPCS: 36415; 80048; 85027

== ENCOUNTER → 2022-02-07 | Outpatient (REF) | payer MEDICARE, SELFPAY ==
[2022-02-07 08:55] LABS: Hematocrit 40.3 % (37-47); Hemoglobin 12.6 g/dL (12.0-15.0); Mean Corp Hgb Conc 31.3 g/dL (32-36); Mean Corpuscular Hgb 27.8 pg (27.0-32.0); Mean Platelet Vol. 10.3 fl (6.2-12.0); Platelet Count 226 K/mm3 (150-450); RBC Distribution Width CV 16.2 % (11.6-14.6); RBC Distribution Width SD 53.2 fl (35.1-43.9); Red Blood Count 4.53 M/mm3 (4.2-5.4); White Blood Count 4.3 K/mm3 (4.4-11.0)
[2022-02-07 09:31] LABS: Anion Gap 7 (5-15); BUN 17 mg/dL (7-18); BUN/Creat Ratio 21.4 RATIO (10-20); Calcium,Total 8.7 mg/dL (8.5-10.1); Chloride 107 mmol/L (98-107); Creatinine, Serum 0.79 mg/dL (0.55-1.02); EST Glomerular Filtration Rate 74 mL/min (>60); Est Glom Filt Rate - Afr Amer 89 mL/min (>60); Glucose 84 mg/dL (74-106); Potassium 4.1 mmol/L (3.5-5.1); Sodium Level 138 mmol/L (136-145)
== END | disposition home or self-care (01) ==
LOC: OLS.WHLTCC 04:00
PROVIDERS: PCP Internal Medicine; Referring Provider Family Medicine; Visit Provider Family Medicine
DX: G93.41 Metabolic encephalopathy (principal); F10.20 Alcohol dependence, uncomplicated; N39.0 Urinary tract infection, site not specified; M62.81 Muscle weakness (generalized); R26.2 Difficulty in walking, not elsewhere classified
CPT/HCPCS: 36415; 80048; 85027

== ENCOUNTER → 2022-02-20 | Outpatient (REF) | payer MEDICARE, MEDICAID, SELFPAY ==
[2022-02-20 08:36] LABS: Hematocrit 40.9 % (37-47); Hemoglobin 12.8 g/dL (12.0-15.0); Mean Corp Hgb Conc 31.3 g/dL (32-36); Mean Corpuscular Hgb 27.7 pg (27.0-32.0); Mean Corpuscular Volume 88.5 fL (81-99); Platelet Count 275 K/mm3 (150-450); RBC Distribution Width CV 15.1 % (11.6-14.6); RBC Distribution Width SD 49.1 fl (35.1-43.9); Red Blood Count 4.62 M/mm3 (4.2-5.4)
[2022-02-20 08:57] LABS: Anion Gap 6 (5-15); BUN 17 mg/dL (7-18); BUN/Creat Ratio 23.3 RATIO (10-20); Chloride 111 mmol/L (98-107); Creatinine, Serum 0.73 mg/dL (0.55-1.02); EST Glomerular Filtration Rate 81 mL/min (>60); Est Glom Filt Rate - Afr Amer 98 mL/min (>60); Glucose 85 mg/dL (74-106); Potassium 4.1 mmol/L (3.5-5.1); Sodium Level 143 mmol/L (136-145)
== END | disposition home or self-care (01) ==
LOC: OLS.WHLTCC 05:00
PROVIDERS: PCP Internal Medicine; Visit Provider Family Medicine
DX: G93.41 Metabolic encephalopathy (principal); I27.20 Pulmonary hypertension, unspecified; F10.20 Alcohol dependence, uncomplicated; K59.00 Constipation, unspecified; N39.0 Urinary tract infection, site not specified; R52 Pain, unspecified
CPT/HCPCS: 36415; 80048; 85027

== ENCOUNTER → 2022-03-06 | Outpatient (REF) | payer MEDICARE, MEDICAID, SELFPAY ==
[2022-03-06 08:44] LABS: Hematocrit 36.3 % (37-47); Hemoglobin 11.5 g/dL (12.0-15.0); Mean Corp Hgb Conc 31.7 g/dL (32-36); Mean Corpuscular Hgb 28.2 pg (27.0-32.0); Mean Platelet Vol. 10.2 fl (6.2-12.0); Platelet Count 248 K/mm3 (150-450); RBC Distribution Width CV 15.3 % (11.6-14.6); RBC Distribution Width SD 49.8 fl (35.1-43.9); Red Blood Count 4.08 M/mm3 (4.2-5.4); White Blood Count 6.7 K/mm3 (4.4-11.0)
[2022-03-06 08:55] LABS: Anion Gap 5 (5-15); BUN 18 mg/dL (7-18); Calcium,Total 8.8 mg/dL (8.5-10.1); Chloride 110 mmol/L (98-107); Creatinine, Serum 0.78 mg/dL (0.55-1.02); EST Glomerular Filtration Rate 75 mL/min (>60); Est Glom Filt Rate - Afr Amer 91 mL/min (>60); Glucose 89 mg/dL (74-106); Potassium 4.1 mmol/L (3.5-5.1); Sodium Level 141 mmol/L (136-145)
== END | disposition home or self-care (01) ==
LOC: OLS.WHLCAR 05:00
PROVIDERS: PCP Internal Medicine; Visit Provider Family Medicine
DX: G93.41 Metabolic encephalopathy (principal); I27.20 Pulmonary hypertension, unspecified; F10.20 Alcohol dependence, uncomplicated; K59.00 Constipation, unspecified; N39.0 Urinary tract infection, site not specified; R52 Pain, unspecified
CPT/HCPCS: 36415; 80048; 85027

== ENCOUNTER → 2022-03-20 | Outpatient (REF) | payer MEDICARE, MEDICAID, SELFPAY ==
[2022-03-20 07:42] LABS: Hematocrit 36.1 % (37-47); Hemoglobin 11.5 g/dL (12.0-15.0); Mean Corp Hgb Conc 31.9 g/dL (32-36); Mean Corpuscular Hgb 28.3 pg (27.0-32.0); Mean Corpuscular Volume 88.7 fL (81-99); Mean Platelet Vol. 9.8 fl (6.2-12.0); Platelet Count 282 K/mm3 (150-450); RBC Distribution Width CV 15.3 % (11.6-14.6); RBC Distribution Width SD 50.1 fl (35.1-43.9); Red Blood Count 4.07 M/mm3 (4.2-5.4); White Blood Count 6.1 K/mm3 (4.4-11.0)
[2022-03-20 07:54] LABS: Anion Gap 8 (5-15); BUN 15 mg/dL (7-18); BUN/Creat Ratio 19.5 RATIO (10-20); Calcium,Total 8.8 mg/dL (8.5-10.1); Chloride 107 mmol/L (98-107); Creatinine, Serum 0.77 mg/dL (0.55-1.02); EST Glomerular Filtration Rate 76 mL/min (>60); Est Glom Filt Rate - Afr Amer 92 mL/min (>60); Glucose 90 mg/dL (74-106); Potassium 4.2 mmol/L (3.5-5.1); Sodium Level 142 mmol/L (136-145)
== END | disposition home or self-care (01) ==
LOC: OLS.WHLCAR 05:00
PROVIDERS: PCP Internal Medicine; Visit Provider Family Medicine
DX: G93.41 Metabolic encephalopathy (principal); I27.20 Pulmonary hypertension, unspecified; F10.20 Alcohol dependence, uncomplicated; K59.00 Constipation, unspecified; N39.0 Urinary tract infection, site not specified; R52 Pain, unspecified
CPT/HCPCS: 36415; 80048; 85027

== ENCOUNTER → 2022-04-03 | Outpatient (REF) | payer MEDICARE, MEDICAID, SELFPAY ==
[2022-04-03 08:38] LABS: Hemoglobin 11.6 g/dL (12.0-15.0); Mean Corp Hgb Conc 31.4 g/dL (32-36); Mean Corpuscular Hgb 28.1 pg (27.0-32.0); Mean Corpuscular Volume 89.6 fL (81-99); Mean Platelet Vol. 10.1 fl (6.2-12.0); Platelet Count 254 K/mm3 (150-450); RBC Distribution Width CV 15.1 % (11.6-14.6); RBC Distribution Width SD 50.1 fl (35.1-43.9); Red Blood Count 4.13 M/mm3 (4.2-5.4); White Blood Count 5.9 K/mm3 (4.4-11.0)
[2022-04-03 08:40] LABS: Anion Gap 4 (5-15); BUN 16 mg/dL (7-18); BUN/Creat Ratio 21.2 RATIO (10-20); Chloride 111 mmol/L (98-107); Creatinine, Serum 0.75 mg/dL (0.55-1.02); EST Glomerular Filtration Rate 78 mL/min (>60); Est Glom Filt Rate - Afr Amer 94 mL/min (>60); Glucose 90 mg/dL (74-106); Potassium 4.2 mmol/L (3.5-5.1); Sodium Level 141 mmol/L (136-145)
== END | disposition home or self-care (01) ==
LOC: OLS.WHLCAR 05:00
PROVIDERS: PCP Internal Medicine; Visit Provider Family Medicine
DX: G93.41 Metabolic encephalopathy (principal); I27.20 Pulmonary hypertension, unspecified; F10.20 Alcohol dependence, uncomplicated; K59.00 Constipation, unspecified; N39.0 Urinary tract infection, site not specified; R52 Pain, unspecified
CPT/HCPCS: 36415; 80048; 85027

== ENCOUNTER → 2022-04-17 | Outpatient (REF) | payer MEDICARE, SELFPAY ==
[2022-04-17 07:26] LABS: Hematocrit 36.2 % (37-47); Hemoglobin 11.6 g/dL (12.0-15.0); Mean Corpuscular Hgb 28.6 pg (27.0-32.0); Mean Corpuscular Volume 89.2 fL (81-99); Mean Platelet Vol. 9.8 fl (6.2-12.0); Platelet Count 246 K/mm3 (150-450); RBC Distribution Width SD 49.6 fl (35.1-43.9); Red Blood Count 4.06 M/mm3 (4.2-5.4); White Blood Count 6.3 K/mm3 (4.4-11.0)
[2022-04-17 07:48] LABS: Anion Gap 5 (5-15); BUN 20 mg/dL (7-18); BUN/Creat Ratio 24.4 RATIO (10-20); Calcium,Total 8.7 mg/dL (8.5-10.1); Chloride 110 mmol/L (98-107); Creatinine, Serum 0.82 mg/dL (0.55-1.02); EST Glomerular Filtration Rate 71 mL/min (>60); Est Glom Filt Rate - Afr Amer 86 mL/min (>60); Glucose 91 mg/dL (74-106); Potassium 4.1 mmol/L (3.5-5.1); Sodium Level 140 mmol/L (136-145)
== END ==
LOC: OLS.WHLCAR 05:00
PROVIDERS: PCP Internal Medicine; Visit Provider Family Medicine
DX: G93.41 Metabolic encephalopathy (principal); I27.20 Pulmonary hypertension, unspecified; F10.20 Alcohol dependence, uncomplicated; K59.00 Constipation, unspecified; N39.0 Urinary tract infection, site not specified; R52 Pain, unspecified
CPT/HCPCS: 36415; 80048; 85027

== ENCOUNTER → 2022-05-01 | Outpatient (REF) | payer MEDICARE, MEDICAID, SELFPAY ==
[2022-05-01 08:50] LABS: Hematocrit 35.8 % (37-47); Hemoglobin 11.2 g/dL (12.0-15.0); Mean Corp Hgb Conc 31.3 g/dL (32-36); Mean Corpuscular Hgb 28.1 pg (27.0-32.0); Mean Corpuscular Volume 89.7 fL (81-99); Mean Platelet Vol. 10.1 fl (6.2-12.0); Platelet Count 254 K/mm3 (150-450); RBC Distribution Width CV 14.7 % (11.6-14.6); RBC Distribution Width SD 48.2 fl (35.1-43.9); Red Blood Count 3.99 M/mm3 (4.2-5.4); White Blood Count 5.9 K/mm3 (4.4-11.0)
[2022-05-01 09:07] LABS: Anion Gap 4 (5-15); BUN 13 mg/dL (7-18); BUN/Creat Ratio 17.1 RATIO (10-20); Chloride 111 mmol/L (98-107); Creatinine, Serum 0.76 mg/dL (0.55-1.02); EST Glomerular Filtration Rate 77 mL/min (>60); Est Glom Filt Rate - Afr Amer 93 mL/min (>60); Glucose 90 mg/dL (74-106); Potassium 4.2 mmol/L (3.5-5.1); Sodium Level 141 mmol/L (136-145)
== END ==
LOC: OLS.WHLCAR 05:00
PROVIDERS: PCP Internal Medicine; Visit Provider Family Medicine
DX: G93.41 Metabolic encephalopathy (principal); K59.00 Constipation, unspecified; N39.0 Urinary tract infection, site not specified; R52 Pain, unspecified; I27.20 Pulmonary hypertension, unspecified; F10.20 Alcohol dependence, uncomplicated
CPT/HCPCS: 36415; 80048; 85027

== ENCOUNTER → 2022-05-16 | Outpatient (REF) | payer MEDICARE, SELFPAY ==
[2022-05-16 11:01] LABS: Hematocrit 36.5 % (37-47); Hemoglobin 11.6 g/dL (12.0-15.0); Mean Corp Hgb Conc 31.8 g/dL (32-36); Mean Corpuscular Hgb 28.6 pg (27.0-32.0); Mean Corpuscular Volume 89.9 fL (81-99); Mean Platelet Vol. 10.2 fl (6.2-12.0); Platelet Count 247 K/mm3 (150-450); RBC Distribution Width CV 14.6 % (11.6-14.6); RBC Distribution Width SD 48.6 fl (35.1-43.9); Red Blood Count 4.06 M/mm3 (4.2-5.4); White Blood Count 5.7 K/mm3 (4.4-11.0)
[2022-05-16 11:40] LABS: Anion Gap 6 (5-15); BUN 15 mg/dL (7-18); BUN/Creat Ratio 20.6 RATIO (10-20); Chloride 111 mmol/L (98-107); Creatinine, Serum 0.73 mg/dL (0.55-1.02); EST Glomerular Filtration Rate 81 mL/min (>60); Est Glom Filt Rate - Afr Amer 98 mL/min (>60); Glucose 84 mg/dL (74-106); Potassium 4.1 mmol/L (3.5-5.1); Sodium Level 142 mmol/L (136-145)
== END ==
LOC: OLS.WHLCAR 05:00
PROVIDERS: PCP Internal Medicine; Visit Provider Family Medicine
DX: G93.41 Metabolic encephalopathy (principal); I27.20 Pulmonary hypertension, unspecified; F10.20 Alcohol dependence, uncomplicated; K59.00 Constipation, unspecified; N39.0 Urinary tract infection, site not specified; R52 Pain, unspecified
CPT/HCPCS: 36415; 80048; 85027

== ENCOUNTER → 2022-05-29 | Outpatient (REF) | payer MEDICARE, SELFPAY ==
[2022-05-29 08:15] LABS: Hemoglobin 11.7 g/dL (12.0-15.0); Mean Corp Hgb Conc 31.6 g/dL (32-36); Mean Corpuscular Hgb 28.3 pg (27.0-32.0); Mean Corpuscular Volume 89.6 fL (81-99); Mean Platelet Vol. 10.1 fl (6.2-12.0); Platelet Count 256 K/mm3 (150-450); RBC Distribution Width CV 14.3 % (11.6-14.6); RBC Distribution Width SD 46.7 fl (35.1-43.9); Red Blood Count 4.13 M/mm3 (4.2-5.4)
[2022-05-29 08:28] LABS: Anion Gap 7 (5-15); BUN 13 mg/dL (7-18); BUN/Creat Ratio 16.8 RATIO (10-20); Chloride 108 mmol/L (98-107); Creatinine, Serum 0.77 mg/dL (0.55-1.02); EST Glomerular Filtration Rate 76 mL/min (>60); Est Glom Filt Rate - Afr Amer 92 mL/min (>60); Glucose 88 mg/dL (74-106); Sodium Level 140 mmol/L (136-145)
== END ==
LOC: OLS.WHLCAR 05:00
PROVIDERS: PCP Internal Medicine; Visit Provider Family Medicine
DX: G93.41 Metabolic encephalopathy (principal); K59.00 Constipation, unspecified; N39.0 Urinary tract infection, site not specified; I27.20 Pulmonary hypertension, unspecified; F10.20 Alcohol dependence, uncomplicated
CPT/HCPCS: 36415; 80048; 85027

== ENCOUNTER → 2022-06-12 | Outpatient (REF) | payer MEDICARE, MEDICAID, SELFPAY ==
[2022-06-12 08:58] LABS: Hematocrit 41.7 % (37-47); Hemoglobin 12.8 g/dL (12.0-15.0); Mean Corp Hgb Conc 30.7 g/dL (32-36); Mean Corpuscular Hgb 27.7 pg (27.0-32.0); Mean Corpuscular Volume 90.3 fL (81-99); Mean Platelet Vol. 9.7 fl (6.2-12.0); Platelet Count 293 K/mm3 (150-450); RBC Distribution Width CV 14.6 % (11.6-14.6); RBC Distribution Width SD 48.3 fl (35.1-43.9); Red Blood Count 4.62 M/mm3 (4.2-5.4); White Blood Count 6.1 K/mm3 (4.4-11.0)
[2022-06-12 09:11] LABS: Anion Gap 6 (5-15); BUN 15 mg/dL (7-18); BUN/Creat Ratio 19.3 RATIO (10-20); Calcium,Total 9.3 mg/dL (8.5-10.1); Chloride 107 mmol/L (98-107); Creatinine, Serum 0.78 mg/dL (0.55-1.02); EST Glomerular Filtration Rate 75 mL/min (>60); Est Glom Filt Rate - Afr Amer 91 mL/min (>60); Glucose 91 mg/dL (74-106); Potassium 3.9 mmol/L (3.5-5.1); Sodium Level 141 mmol/L (136-145)
== END ==
LOC: OLS.WHLCAR 05:00
PROVIDERS: PCP Internal Medicine; Visit Provider Family Medicine
DX: G93.41 Metabolic encephalopathy (principal); K59.00 Constipation, unspecified; N39.0 Urinary tract infection, site not specified; R52 Pain, unspecified; I27.20 Pulmonary hypertension, unspecified; F10.20 Alcohol dependence, uncomplicated
CPT/HCPCS: 36415; 80048; 85027

== ENCOUNTER → 2022-06-26 | Outpatient (REF) | payer MEDICARE, MEDICAID, SELFPAY ==
[2022-06-26 07:58] LABS: Hematocrit 36.5 % (37-47); Hemoglobin 11.4 g/dL (12.0-15.0); Mean Corp Hgb Conc 31.2 g/dL (32-36); Mean Corpuscular Hgb 27.8 pg (27.0-32.0); Platelet Count 239 K/mm3 (150-450); RBC Distribution Width CV 14.3 % (11.6-14.6); RBC Distribution Width SD 46.3 fl (35.1-43.9); White Blood Count 5.8 K/mm3 (4.4-11.0)
[2022-06-26 08:14] LABS: Anion Gap 10 (5-15); BUN 14 mg/dL (7-18); BUN/Creat Ratio 18.7 RATIO (10-20); Calcium,Total 8.9 mg/dL (8.5-10.1); Chloride 109 mmol/L (98-107); Creatinine, Serum 0.75 mg/dL (0.55-1.02); EST Glomerular Filtration Rate 78 mL/min (>60); Est Glom Filt Rate - Afr Amer 95 mL/min (>60); Glucose 86 mg/dL (74-106); Potassium 4.1 mmol/L (3.5-5.1); Sodium Level 144 mmol/L (136-145)
== END ==
LOC: OLS.WHLCAR 04:00
PROVIDERS: PCP Internal Medicine; Referring Provider Family Medicine; Visit Provider Family Medicine
DX: G93.41 Metabolic encephalopathy (principal); I27.20 Pulmonary hypertension, unspecified; K59.00 Constipation, unspecified; N39.0 Urinary tract infection, site not specified; R52 Pain, unspecified
CPT/HCPCS: 36415; 80048; 85027

== ENCOUNTER → 2022-07-10 | Outpatient (REF) | payer MEDICARE, MEDICAID, SELFPAY ==
[2022-07-10 08:23] LABS: Hemoglobin 11.9 g/dL (12.0-15.0); Mean Corp Hgb Conc 32.2 g/dL (32-36); Mean Corpuscular Hgb 28.1 pg (27.0-32.0); Mean Corpuscular Volume 87.3 fL (81-99); Mean Platelet Vol. 9.9 fl (6.2-12.0); Platelet Count 256 K/mm3 (150-450); RBC Distribution Width CV 14.4 % (11.6-14.6); RBC Distribution Width SD 46.5 fl (35.1-43.9); Red Blood Count 4.24 M/mm3 (4.2-5.4); White Blood Count 5.9 K/mm3 (4.4-11.0)
[2022-07-10 08:26] LABS: Anion Gap 11 (5-15); BUN 16 mg/dL (7-18); BUN/Creat Ratio 19.9 RATIO (10-20); Calcium,Total 8.7 mg/dL (8.5-10.1); Chloride 108 mmol/L (98-107); EST Glomerular Filtration Rate 72 mL/min (>60); Est Glom Filt Rate - Afr Amer 88 mL/min (>60); Glucose 89 mg/dL (74-106); Potassium 4.2 mmol/L (3.5-5.1); Sodium Level 143 mmol/L (136-145)
== END ==
LOC: OLS.WHLCAR 05:00
PROVIDERS: PCP Internal Medicine; Visit Provider Family Medicine
DX: G93.41 Metabolic encephalopathy (principal); I27.20 Pulmonary hypertension, unspecified; F10.20 Alcohol dependence, uncomplicated; N39.0 Urinary tract infection, site not specified; K59.00 Constipation, unspecified; R52 Pain, unspecified
CPT/HCPCS: 36415; 80048; 85027

== ENCOUNTER → 2022-07-24 | Outpatient (REF) | payer MEDICARE, MEDICAID, SELFPAY ==
[2022-07-24 08:13] LABS: Hematocrit 40.9 % (37-47); Hemoglobin 12.8 g/dL (12.0-15.0); Mean Corp Hgb Conc 31.3 g/dL (32-36); Mean Corpuscular Hgb 27.4 pg (27.0-32.0); Mean Corpuscular Volume 87.6 fL (81-99); Mean Platelet Vol. 10.5 fl (6.2-12.0); Platelet Count 267 K/mm3 (150-450); RBC Distribution Width CV 14.5 % (11.6-14.6); RBC Distribution Width SD 46.5 fl (35.1-43.9); Red Blood Count 4.67 M/mm3 (4.2-5.4); White Blood Count 7.2 K/mm3 (4.4-11.0)
[2022-07-24 08:28] LABS: Anion Gap 8 (5-15); BUN 14 mg/dL (7-18); BUN/Creat Ratio 17.9 RATIO (10-20); Chloride 106 mmol/L (98-107); Creatinine, Serum 0.78 mg/dL (0.55-1.02); EST Glomerular Filtration Rate 75 mL/min (>60); Est Glom Filt Rate - Afr Amer 90 mL/min (>60); Glucose 85 mg/dL (74-106); Potassium 3.9 mmol/L (3.5-5.1); Sodium Level 141 mmol/L (136-145)
== END ==
LOC: OLS.WHLCAR 05:00
PROVIDERS: PCP Internal Medicine; Visit Provider Family Medicine
DX: G93.41 Metabolic encephalopathy (principal); I27.20 Pulmonary hypertension, unspecified; F10.20 Alcohol dependence, uncomplicated; N39.0 Urinary tract infection, site not specified; K59.00 Constipation, unspecified; R52 Pain, unspecified
CPT/HCPCS: 36415; 80048; 85027

== ENCOUNTER → 2022-08-07 | Outpatient (REF) | payer MEDICARE, MEDICAID, SELFPAY ==
[2022-08-07 07:53] LABS: Hematocrit 39.4 % (37-47); Mean Corp Hgb Conc 30.5 g/dL (32-36); Mean Corpuscular Volume 88.5 fL (81-99); Platelet Count 276 K/mm3 (150-450); RBC Distribution Width SD 48.8 fl (35.1-43.9); Red Blood Count 4.45 M/mm3 (4.2-5.4); White Blood Count 6.1 K/mm3 (4.4-11.0)
[2022-08-07 08:18] LABS: Anion Gap 8 (5-15); BUN 15 mg/dL (7-18); BUN/Creat Ratio 18.4 RATIO (10-20); Calcium,Total 9.1 mg/dL (8.5-10.1); Chloride 110 mmol/L (98-107); Creatinine, Serum 0.81 mg/dL (0.55-1.02); EST Glomerular Filtration Rate 71 mL/min (>60); Est Glom Filt Rate - Afr Amer 86 mL/min (>60); Glucose 86 mg/dL (74-106); Potassium 4.1 mmol/L (3.5-5.1); Sodium Level 142 mmol/L (136-145)
== END ==
LOC: OLS.WHLCAR 04:00
PROVIDERS: PCP Internal Medicine; Referring Provider Family Medicine; Visit Provider Family Medicine
DX: G93.41 Metabolic encephalopathy (principal); I27.20 Pulmonary hypertension, unspecified; N39.0 Urinary tract infection, site not specified; F10.20 Alcohol dependence, uncomplicated; K59.00 Constipation, unspecified; R52 Pain, unspecified
CPT/HCPCS: 36415; 80048; 85027

== ENCOUNTER → 2022-08-21 | Outpatient (REF) | payer MEDICAID, SELFPAY ==
[2022-08-21 09:00] LABS: Hematocrit 40.2 % (37-47); Hemoglobin 12.6 g/dL (12.0-15.0); Mean Corp Hgb Conc 31.3 g/dL (32-36); Mean Corpuscular Hgb 27.4 pg (27.0-32.0); Mean Corpuscular Volume 87.4 fL (81-99); Platelet Count 301 K/mm3 (150-450); RBC Distribution Width CV 14.8 % (11.6-14.6); RBC Distribution Width SD 47.8 fl (35.1-43.9); White Blood Count 6.3 K/mm3 (4.4-11.0)
[2022-08-21 09:20] LABS: Anion Gap 6 (5-15); BUN 14 mg/dL (7-18); BUN/Creat Ratio 16.9 RATIO (10-20); Calcium,Total 9.1 mg/dL (8.5-10.1); Chloride 111 mmol/L (98-107); Creatinine, Serum 0.83 mg/dL (0.55-1.02); EST Glomerular Filtration Rate 70 mL/min (>60); Est Glom Filt Rate - Afr Amer 85 mL/min (>60); Glucose 98 mg/dL (74-106); Potassium 4.3 mmol/L (3.5-5.1); Sodium Level 140 mmol/L (136-145)
== END ==
LOC: OLS.WHLCAR 05:00
PROVIDERS: PCP Internal Medicine; Visit Provider Family Medicine
DX: G93.41 Metabolic encephalopathy (principal); I27.20 Pulmonary hypertension, unspecified; F10.20 Alcohol dependence, uncomplicated; N39.0 Urinary tract infection, site not specified; K59.00 Constipation, unspecified; R52 Pain, unspecified
CPT/HCPCS: 36415; 80048; 85027

== ENCOUNTER → 2022-09-05 | Outpatient (REF) | payer MEDICARE, MEDICAID, SELFPAY ==
[2022-09-05 10:36] LABS: Hematocrit 36.9 % (37-47); Mean Corp Hgb Conc 29.8 g/dL (32-36); Mean Corpuscular Volume 90.4 fL (81-99); Mean Platelet Vol. 10.3 fl (6.2-12.0); Platelet Count 258 K/mm3 (150-450); RBC Distribution Width CV 15.2 % (11.6-14.6); RBC Distribution Width SD 50.2 fl (35.1-43.9); Red Blood Count 4.08 M/mm3 (4.2-5.4); White Blood Count 5.4 K/mm3 (4.4-11.0)
[2022-09-05 11:06] LABS: Anion Gap 7 (5-15); BUN 14 mg/dL (7-18); BUN/Creat Ratio 19.6 RATIO (10-20); Calcium,Total 8.8 mg/dL (8.5-10.1); Chloride 109 mmol/L (98-107); Creatinine, Serum 0.72 mg/dL (0.55-1.02); EST Glomerular Filtration Rate 83 mL/min (>60); Est Glom Filt Rate - Afr Amer 100 mL/min (>60); Glucose 75 mg/dL (74-106); Potassium 3.9 mmol/L (3.5-5.1); Sodium Level 140 mmol/L (136-145)
== END ==
LOC: OLS.WHLCAR 04:00
PROVIDERS: PCP Internal Medicine; Visit Provider Internal Medicine
DX: G93.41 Metabolic encephalopathy (principal); K59.00 Constipation, unspecified; N39.0 Urinary tract infection, site not specified; R52 Pain, unspecified; I27.20 Pulmonary hypertension, unspecified; F10.20 Alcohol dependence, uncomplicated
CPT/HCPCS: 36415; 80048; 85027

== ENCOUNTER → 2022-09-18 | Outpatient (REF) | payer MEDICARE, MEDICAID, SELFPAY ==
[2022-09-18 09:15] LABS: Hematocrit 40.9 % (37-47); Hemoglobin 13.2 g/dL (12.0-15.0); Mean Corp Hgb Conc 32.3 g/dL (32-36); Mean Corpuscular Volume 86.8 fL (81-99); Mean Platelet Vol. 10.4 fl (6.2-12.0); Platelet Count 294 K/mm3 (150-450); RBC Distribution Width SD 48.3 fl (35.1-43.9); Red Blood Count 4.71 M/mm3 (4.2-5.4); White Blood Count 6.5 K/mm3 (4.4-11.0)
[2022-09-18 09:20] LABS: Anion Gap 8 (5-15); BUN 17 mg/dL (7-18); BUN/Creat Ratio 20.5 RATIO (10-20); Calcium,Total 9.2 mg/dL (8.5-10.1); Chloride 110 mmol/L (98-107); Creatinine, Serum 0.83 mg/dL (0.55-1.02); EST Glomerular Filtration Rate 70 mL/min (>60); Est Glom Filt Rate - Afr Amer 84 mL/min (>60); Glucose 98 mg/dL (74-106); Sodium Level 142 mmol/L (136-145)
== END ==
LOC: OLS.WHLCAR 05:00
PROVIDERS: PCP Internal Medicine; Visit Provider Internal Medicine
DX: G93.41 Metabolic encephalopathy (principal); K59.00 Constipation, unspecified; N39.0 Urinary tract infection, site not specified; R52 Pain, unspecified; I27.20 Pulmonary hypertension, unspecified; F10.20 Alcohol dependence, uncomplicated
CPT/HCPCS: 36415; 80048; 85027

== ENCOUNTER → 2022-10-02 | Outpatient (REF) | payer MEDICARE, MEDICAID, SELFPAY ==
[2022-10-02 09:14] LABS: Hematocrit 36.4 % (37-47); Hemoglobin 11.4 g/dL (12.0-15.0); Mean Corp Hgb Conc 31.3 g/dL (32-36); Mean Corpuscular Hgb 27.6 pg (27.0-32.0); Mean Corpuscular Volume 88.1 fL (81-99); Mean Platelet Vol. 10.4 fl (6.2-12.0); Platelet Count 243 K/mm3 (150-450); RBC Distribution Width SD 48.1 fl (35.1-43.9); Red Blood Count 4.13 M/mm3 (4.2-5.4); White Blood Count 6.2 K/mm3 (4.4-11.0)
[2022-10-02 10:31] LABS: Anion Gap 9 (5-15); BUN 13 mg/dL (7-18); BUN/Creat Ratio 18.1 RATIO (10-20); Calcium,Total 8.9 mg/dL (8.5-10.1); Chloride 111 mmol/L (98-107); Creatinine, Serum 0.72 mg/dL (0.55-1.02); EST Glomerular Filtration Rate 82 mL/min (>60); Est Glom Filt Rate - Afr Amer 99 mL/min (>60); Glucose 85 mg/dL (74-106); Potassium 4.4 mmol/L (3.5-5.1); Sodium Level 142 mmol/L (136-145)
[2022-10-04 22:10] LABS: Vitamin B1, Thiamine 146.2 nmol/L (66.5-200.0)
== END ==
LOC: OLS.WHLCAR 05:10
PROVIDERS: PCP Internal Medicine; Referring Provider Internal Medicine; Visit Provider Internal Medicine
DX: F03.90 Unspecified dementia, unspecified severity, without behavioral disturbance, psychotic disturbance, mood disturbance, and anxiety (principal); G93.41 Metabolic encephalopathy; K59.00 Constipation, unspecified; N39.0 Urinary tract infection, site not specified; R52 Pain, unspecified; I27.20 Pulmonary hypertension, unspecified; F10.20 Alcohol dependence, uncomplicated; R13.11 Dysphagia, oral phase
CPT/HCPCS: 36415; 80048; 82746; 84425; 85027

== ENCOUNTER → 2022-10-16 | Outpatient (REF) | payer MEDICARE, MEDICAID, SELFPAY ==
[2022-10-16 08:50] LABS: Hematocrit 42.2 % (37-47); Hemoglobin 12.8 g/dL (12.0-15.0); Mean Corp Hgb Conc 30.3 g/dL (32-36); Mean Corpuscular Hgb 27.5 pg (27.0-32.0); Mean Corpuscular Volume 90.8 fL (81-99); Mean Platelet Vol. 9.8 fl (6.2-12.0); Platelet Count 324 K/mm3 (150-450); RBC Distribution Width CV 15.1 % (11.6-14.6); RBC Distribution Width SD 50.2 fl (35.1-43.9); Red Blood Count 4.65 M/mm3 (4.2-5.4); White Blood Count 5.7 K/mm3 (4.4-11.0)
[2022-10-16 09:10] LABS: Anion Gap 6 (5-15); BUN 13 mg/dL (7-18); BUN/Creat Ratio 15.8 RATIO (10-20); Calcium,Total 9.1 mg/dL (8.5-10.1); Chloride 109 mmol/L (98-107); Creatinine, Serum 0.82 mg/dL (0.55-1.02); EST Glomerular Filtration Rate 70 mL/min (>60); Est Glom Filt Rate - Afr Amer 85 mL/min (>60); Glucose 101 mg/dL (74-106); Potassium 3.9 mmol/L (3.5-5.1); Sodium Level 143 mmol/L (136-145)
== END ==
LOC: OLS.WHLCAR 05:00
PROVIDERS: PCP Internal Medicine; Visit Provider Family Medicine
DX: G93.41 Metabolic encephalopathy (principal); K59.00 Constipation, unspecified; N39.0 Urinary tract infection, site not specified; R52 Pain, unspecified; I27.20 Pulmonary hypertension, unspecified; F10.20 Alcohol dependence, uncomplicated
CPT/HCPCS: 36415; 80048; 85027

== ENCOUNTER → 2022-10-30 | Outpatient (REF) | payer MEDICARE, MEDICAID, SELFPAY ==
[2022-10-30 07:29] LABS: Hematocrit 38.3 % (37-47); Hemoglobin 11.9 g/dL (12.0-15.0); Mean Corp Hgb Conc 31.1 g/dL (32-36); Mean Corpuscular Hgb 27.7 pg (27.0-32.0); Mean Corpuscular Volume 89.3 fL (81-99); Mean Platelet Vol. 9.7 fl (6.2-12.0); Platelet Count 255 K/mm3 (150-450); RBC Distribution Width CV 14.9 % (11.6-14.6); RBC Distribution Width SD 48.9 fl (35.1-43.9); Red Blood Count 4.29 M/mm3 (4.2-5.4); White Blood Count 5.4 K/mm3 (4.4-11.0)
[2022-10-30 07:42] LABS: Anion Gap 6 (5-15); BUN 15 mg/dL (7-18); BUN/Creat Ratio 19.2 RATIO (10-20); Calcium,Total 8.9 mg/dL (8.5-10.1); Chloride 110 mmol/L (98-107); Creatinine, Serum 0.78 mg/dL (0.55-1.02); EST Glomerular Filtration Rate 75 mL/min (>60); Est Glom Filt Rate - Afr Amer 91 mL/min (>60); Glucose 97 mg/dL (74-106); Potassium 4.4 mmol/L (3.5-5.1); Sodium Level 143 mmol/L (136-145)
== END ==
LOC: OLS.WHLCAR 05:00
PROVIDERS: PCP Internal Medicine; Visit Provider Family Medicine
DX: G93.41 Metabolic encephalopathy (principal); K59.00 Constipation, unspecified; N39.0 Urinary tract infection, site not specified; R52 Pain, unspecified; I27.20 Pulmonary hypertension, unspecified; F10.20 Alcohol dependence, uncomplicated
CPT/HCPCS: 36415; 80048; 85027

== ENCOUNTER → 2022-11-13 | Outpatient (REF) | payer MEDICARE, MEDICAID, SELFPAY ==
[2022-11-13 08:49] LABS: Hematocrit 35.8 % (37-47); Mean Corp Hgb Conc 30.7 g/dL (32-36); Mean Corpuscular Hgb 27.4 pg (27.0-32.0); Mean Corpuscular Volume 89.3 fL (81-99); Mean Platelet Vol. 10.1 fl (6.2-12.0); Platelet Count 269 K/mm3 (150-450); RBC Distribution Width CV 14.5 % (11.6-14.6); RBC Distribution Width SD 47.7 fl (35.1-43.9); Red Blood Count 4.01 M/mm3 (4.2-5.4)
[2022-11-13 09:02] LABS: Anion Gap 5 (5-15); BUN 15 mg/dL (7-18); BUN/Creat Ratio 19.7 RATIO (10-20); Calcium,Total 8.7 mg/dL (8.5-10.1); Chloride 111 mmol/L (98-107); Creatinine, Serum 0.76 mg/dL (0.55-1.02); EST Glomerular Filtration Rate 77 mL/min (>60); Est Glom Filt Rate - Afr Amer 93 mL/min (>60); Glucose 90 mg/dL (74-106); Potassium 4.1 mmol/L (3.5-5.1); Sodium Level 142 mmol/L (136-145)
== END ==
LOC: OLS.WHLCAR 05:00
PROVIDERS: PCP Internal Medicine; Visit Provider Family Medicine
DX: G93.41 Metabolic encephalopathy (principal); K59.00 Constipation, unspecified; N39.0 Urinary tract infection, site not specified; R52 Pain, unspecified; I27.20 Pulmonary hypertension, unspecified; F10.20 Alcohol dependence, uncomplicated
CPT/HCPCS: 36415; 80048; 85027

== ENCOUNTER → 2022-11-27 | Outpatient (REF) | payer MEDICARE, MEDICAID, SELFPAY ==
[2022-11-27 09:03] LABS: Hematocrit 36.3 % (37-47); Hemoglobin 11.4 g/dL (12.0-15.0); Mean Corp Hgb Conc 31.4 g/dL (32-36); Mean Corpuscular Hgb 27.8 pg (27.0-32.0); Mean Corpuscular Volume 88.5 fL (81-99); Mean Platelet Vol. 10.2 fl (6.2-12.0); Platelet Count 263 K/mm3 (150-450); RBC Distribution Width CV 14.7 % (11.6-14.6); RBC Distribution Width SD 48.2 fl (35.1-43.9); White Blood Count 6.1 K/mm3 (4.4-11.0)
[2022-11-27 09:18] LABS: Anion Gap 7 (5-15); BUN 18 mg/dL (7-18); BUN/Creat Ratio 23.6 RATIO (10-20); Calcium,Total 8.9 mg/dL (8.5-10.1); Chloride 109 mmol/L (98-107); Creatinine, Serum 0.76 mg/dL (0.55-1.02); EST Glomerular Filtration Rate 77 mL/min (>60); Est Glom Filt Rate - Afr Amer 93 mL/min (>60); Glucose 86 mg/dL (74-106); Potassium 4.3 mmol/L (3.5-5.1); Sodium Level 141 mmol/L (136-145)
== END ==
LOC: OLS.WHLCAR 05:00
PROVIDERS: PCP Internal Medicine; Visit Provider Internal Medicine
DX: G93.41 Metabolic encephalopathy (principal); K59.00 Constipation, unspecified; N39.0 Urinary tract infection, site not specified; R52 Pain, unspecified; I27.20 Pulmonary hypertension, unspecified; F10.20 Alcohol dependence, uncomplicated
CPT/HCPCS: 36415; 80048; 85027

== ENCOUNTER → 2022-12-11 | Outpatient (REF) | payer MEDICARE, MEDICAID, SELFPAY ==
[2022-12-11 08:28] LABS: Hematocrit 41.4 % (37-47); Hemoglobin 12.7 g/dL (12.0-15.0); Mean Corp Hgb Conc 30.7 g/dL (32-36); Mean Corpuscular Hgb 27.4 pg (27.0-32.0); Mean Corpuscular Volume 89.4 fL (81-99); Platelet Count 297 K/mm3 (150-450); RBC Distribution Width CV 14.8 % (11.6-14.6); RBC Distribution Width SD 48.6 fl (35.1-43.9); Red Blood Count 4.63 M/mm3 (4.2-5.4); White Blood Count 6.6 K/mm3 (4.4-11.0)
[2022-12-11 08:36] LABS: Anion Gap 5 (5-15); BUN 15 mg/dL (7-18); BUN/Creat Ratio 16.4 RATIO (10-20); Calcium,Total 9.2 mg/dL (8.5-10.1); Chloride 109 mmol/L (98-107); Creatinine, Serum 0.92 mg/dL (0.55-1.02); EST Glomerular Filtration Rate 62 mL/min (>60); Est Glom Filt Rate - Afr Amer 75 mL/min (>60); Glucose 113 mg/dL (74-106); Potassium 3.7 mmol/L (3.5-5.1); Sodium Level 140 mmol/L (136-145)
== END ==
LOC: OLS.WHLCAR 05:00
PROVIDERS: PCP Internal Medicine; Visit Provider Family Medicine
DX: G93.41 Metabolic encephalopathy (principal); K59.00 Constipation, unspecified; N39.0 Urinary tract infection, site not specified; R52 Pain, unspecified; I27.20 Pulmonary hypertension, unspecified; F10.20 Alcohol dependence, uncomplicated; Z79.899 Other long term (current) drug therapy
CPT/HCPCS: 36415; 80048; 85027

== ENCOUNTER → 2022-12-25 | Outpatient (REF) | payer MEDICARE, MEDICAID, SELFPAY ==
[2022-12-25 07:56] LABS: Hematocrit 36.4 % (37-47); Hemoglobin 11.4 g/dL (12.0-15.0); Mean Corp Hgb Conc 31.3 g/dL (32-36); Mean Corpuscular Hgb 27.6 pg (27.0-32.0); Mean Corpuscular Volume 88.1 fL (81-99); Mean Platelet Vol. 10.2 fl (6.2-12.0); Platelet Count 219 K/mm3 (150-450); RBC Distribution Width CV 14.8 % (11.6-14.6); RBC Distribution Width SD 48.1 fl (35.1-43.9); Red Blood Count 4.13 M/mm3 (4.2-5.4)
[2022-12-25 08:06] LABS: Anion Gap 5 (5-15); BUN 14 mg/dL (7-18); BUN/Creat Ratio 18.3 RATIO (10-20); Calcium,Total 8.6 mg/dL (8.5-10.1); Chloride 111 mmol/L (98-107); Creatinine, Serum 0.77 mg/dL (0.55-1.02); EST Glomerular Filtration Rate 76 mL/min (>60); Est Glom Filt Rate - Afr Amer 92 mL/min (>60); Glucose 86 mg/dL (74-106); Potassium 4.1 mmol/L (3.5-5.1); Sodium Level 141 mmol/L (136-145)
== END ==
LOC: OLS.WHLCAR 05:00
PROVIDERS: PCP Internal Medicine; Visit Provider Internal Medicine
DX: G93.41 Metabolic encephalopathy (principal); K59.00 Constipation, unspecified; N39.0 Urinary tract infection, site not specified; R52 Pain, unspecified; I27.20 Pulmonary hypertension, unspecified; F10.20 Alcohol dependence, uncomplicated
CPT/HCPCS: 36415; 80048; 85027

== ENCOUNTER 2022-12-31 16:11 | Emergency (ER) | payer MEDICARE, MEDICAID, SELFPAY ==
[2022-12-31 16:12] VITALS: BP 105/51; PULSE 71; RESP 16; TEMP 36.2; O2SAT 97; BMI 28.3
--- NOTE | 2022-12-31 16:22 | EX.ED.VIS.PS ---
HPI HPI - Psych History of Present Illness Chief Complaint: Mental Health Narrative Narrative: 82-year-old female past medical history of dementia presents from prison facility with aggressive behavior that was reported today. Patient states she is unsure as to why she is in the hospital. She denies any pain, no fevers or chills, states that she feels well. It was reported that she threw herself on the ground on Sunday. She is DO NOT RESUSCITATE Comfort Care arrest. She was aggressive previously. She was sent from the facility for possible geriatric psychiatric placement. She had been in a dementia unit previously and was aggressive towards other residents. She was sent for psychiatric evaluation today. [facility] Medical History Abnormal mammogram of right breast Anemia Bone fracture Cataracts, bilateral Dementia Depression Hearing loss History of colon cancer Kidney disease Thyroid disease Home Medications cholecalciferol (vitamin D3) 25 mcg (1,000 unit) capsule 1,000 unit PO DAILY 02/11/19 [History Last Taken Unknown] pmaqvzjdclzg-Pg-isaj-minerals 27 mg-0.4 mg tablet 1 ea PO DAILY 02/21/19 [History Last Taken Unknown] docusate sodium 100 mg capsule (Dulcolax Stool Softener (docusate)) 100 mg PO DAILY #30 caps 07/06/20 [Rx Last Taken Unknown] donepezil 10 mg tablet 10 mg PO QHS 12/31/22 [History Last Taken Unknown] gabapentin 100 mg capsule 100 mg PO TID 12/31/22 [History Last Taken Unknown] lisinopril 5 mg tablet 5 mg PO DAILY 12/31/22 [History Last Taken Unknown] loperamide 2 mg capsule 2 mg PO DAILY 12/31/22 [History Last Taken Unknown] memantine 5 mg tablet 5 mg PO QHS 12/31/22 [History Last Taken Unknown] potassium chloride 20 mEq tablet,extended release(part/cryst) 40 meq PO DAILY 12/31/22 [History Last Taken Unknown] sertraline 25 mg tablet 50 mg PO DAILY 12/31/22 [History Last Taken Unknown] thiamine HCl (vitamin B1) 100 mg tablet 100 mg PO DAILY 12/31/22 [History Last Taken Unknown] vitamins A,C,Z-mtwa-xpurbt 2,148 mcg-113 mg-45 mg-17.4 mg tablet (Eye Multivitamin) 1 tab PO QHS 12/31/22 [History Last Taken Unknown] Allergy/AdvReac Type Severity Reaction Status Date / Time Sulfa (Sulfonamide Allergy Severe passes out Verified 12/31/22 16:15 Antibiotics) Family History Mother Alcoholism Father Alcoholism Brother Cancer Surgical History History of ankle surgery History of colectomy History of left cataract surgery History of tonsillectomy Hx of right breast biopsy Social History Smoking Status: Never smoker alcohol intake: current alcohol intake frequency: holidays/special occasions only substance use type: does not use ROS ROS ED ROS Narrative Constitutional: No fever, no chills. HEENT: No sore throat. No neck pain. No loss of vision. No rhinorrhea. Cardiovascular: No chest pain. No palpitations. No pedal edema. Respiratory: No cough, no shortness of breath. Abdominal: No abdominal pain. No nausea. No vomiting. Genitourinary: No dysuria. No hematuria. Musculoskeletal: No myalgias. No arthralgias. Neurologic: No headaches. No dizziness. No lightheadedness. Skin: No rash. No change in color. Psychiatric: History of depression. No anxiety. Review of Systems ROS Unobtainable: due to mental condition and other Details: Unable to obtain from patient secondary to dementia. EXAM Physical Exam Narrative Exam Narrative: Afebrile. Vital signs noted. HEENT: Normocephalic. Atraumatic. PERRL, EOMI. Neck soft and supple. No point tenderness or step off. Cardiovascular: Regular rate and rhythm. No murmurs, rubs, or gallops appreciated. Respiratory: No tachypnea. Lungs clear to auscultation bilaterally. Gastrointestinal: Abdomen soft, nontender, with normoactive bowel sounds. No rebound or guarding. Neurological: Awake. Alert. Oriented to person and place. Nonfocal, nonlateralizing. Skin: No rash. Normal color. No pallor. Musculoskeletal: No pedal edema. Full range of motion extremities. Psychiatric: Calm, not aggressive currently. Const Vital Signs: 12/31/22 16:12 04/23/23 18:26 Temperature 97.1 F L Temperature Source Temporal Pulse Rate 71 Respiratory Rate 16 16 Blood Pressure 105/51 L Blood Pressure Mean 69 Pulse Ox 97 Oxygen Delivery Method Room Air MDM MDM MDM Narrative Medical decision making narrative: Basic laboratories will be obtained. It does sound like that her throwing herself on the ground and her aggressive behavior is more of a behavioral type problem than psychiatric. I will obtain screening labs and a urinalysis to make sure she does not have an electrolyte imbalance or urinary tract infection. I reviewed her laboratory work, she has normal white count of 7.5, hemoglobin stable 11.9, hematocrit 37.1. In review of her electrolyte panel she has a chloride elevated at 112 which I think is nonspecific, BUN of 20 with a creatinine of 1.14. Urine for drugs of abuse is negative. Ethyl alcohol is negative as expected as the patient is a resident of a prison facility. At this point in time, I do feel she is medically cleared for evaluation by mental health/crisis RN reports that after evaluation, she does not meet any criteria for geriatric psychiatric admission/placement. I do feel that her aggressive behavior is most likely secondary to dementia. At this point in time, she will be discharged back to the prison facility. Additionally, she had only given a small sample for urine dipstick which showed leukocyte esterase. After she gave another sample, her leukocyte esterase is down to 100 and there are 5-10 WBCs. This will be sent for culture, but I do not feel that antibiotics are currently indicated as she is not having dysuria and I do not think that is the cause of her aggressive behavior. I feel she be discharged. Disposition is discharged to prison facility in stable condition. History & Record Review Discussion w/independent historian: Unable to obtain (Dementia) Additional record(s) reviewed:: Prior outpatient record and Prior labs Lab Data Attestation: I reviewed the patient's lab results. Labs: Laboratory Results - last 24 hr 12/31/22 12/31/22 12/31/22 16:58 16:58 16:58 WBC 7.5 RBC 4.24 Hgb 11.9 L Hct 37.1 MCV 87.5 MCH 28.1 MCHC 32.1 RDW Std Deviation 48.5 H RDW Coeff of Joey 15.1 H Plt Count 245 MPV 9.4 Immature Gran % (Auto) 0.300 Neut % (Auto) 67.4 Lymph % (Auto) 22.4 Bulloch % (Auto) 7.2 Eos % (Auto) 2.3 Baso % (Auto) 0.4 Absolute Neuts (auto) 5.1 Absolute Lymphs (auto) 1.68 Nucleated RBC % 0 Sodium 139 Potassium 4.2 Chloride 112 H Carbon Dioxide 24.0 Anion Gap 3 L BUN 20 H Creatinine 1.14 H Estim Creat Clear Calc 39.08 Est GFR (MDRD) Af Amer 58 L Est GFR (MDRD) Non-Af 48 L BUN/Creatinine Ratio 17.5 Glucose 99 Calcium 9.2 Total Bilirubin 0.20 AST 11 L ALT 17 Alkaline Phosphatase 83 Total Protein 7.2 Albumin 3.4 Globulin 3.8 Albumin/Globulin Ratio 0.9 Urine Color Urine Clarity Urine pH Ur Specific [place] Urine Protein Urine Glucose (UA) Urine Ketones Urine Occult Blood Urine Nitrite Urine Bilirubin Urine Urobilinogen Ur Leukocyte Esterase Urine RBC Urine WBC Ur Squamous Epith Cells Ur Transition Epith Cell Ur Renal Epithelial Cell Calcium Oxalate Crystal Uric Acid Crystals Triple Phos Crystals Other Crystals Amorphous Sediment Urine Bacteria Hyaline Casts Fine Granular Casts Coarse Granular Casts Waxy Casts RBC Casts WBC Casts Urine Mucus Urine Trichomonas Urine Yeast Urine Opiates Screen Urine Methadone Screen Ur Barbiturates Screen Ur Phencyclidine Scrn Ur Amphetamines Screen MDMA (Ecstasy) Screen U Benzodiazepines Scrn Urine Cocaine Screen U Cannabinoids Screen Ur Drug Screen Comment Ethyl Alcohol < 3.0 12/31/22 12/31/22 12/31/22 17:18 17:18 19:50 WBC RBC Hgb Hct MCV MCH MCHC RDW Std Deviation RDW Coeff of Joey Plt Count MPV Immature Gran % (Auto) Neut % (Auto) Lymph % (Auto) Bull[place] % (Auto) Eos % (Auto) Baso % (Auto) Absolute Neuts (auto) Absolute Lymphs (auto) Nucleated RBC % Sodium Potassium Chloride Carbon Dioxide Anion Gap BUN Creatinine Estim Creat Clear Calc Est GFR (MDRD) Af Amer Est GFR (MDRD) Non-Af BUN/Creatinine Ratio Glucose Calcium Total Bilirubin AST ALT Alkaline Phosphatase Total Protein Albumin Globulin Albumin/Globulin Ratio Urine Color Yellow Urine Clarity Clear Urine pH 5.0 Ur Specific [place] 1.030 Urine Protein 30 H Urine Glucose (UA) Normal Urine Ketones Negative Urine Occult Blood 25 H Urine Nitrite Negative Urine Bilirubin Negative Urine Urobilinogen Normal Ur Leukocyte Esterase 500 H Urine RBC Cancelled Urine WBC Cancelled Ur Squamous Epith Cells Cancelled Ur Transition Epith Cell Cancelled Ur Renal Epithelial Cell Cancelled Calcium Oxalate Crystal Cancelled Uric Acid Crystals Cancelled Triple Phos Crystals Cancelled Other Crystals Cancelled Amorphous Sediment Cancelled Urine Bacteria Cancelled Hyaline Casts Cancelled Fine Granular Casts Cancelled Coarse Granular Casts Cancelled Waxy Casts Cancelled RBC Casts Cancelled WBC Casts Cancelled Urine Mucus Cancelled Urine Trichomonas Cancelled Urine Yeast Cancelled Urine Opiates Screen Cancelled NEGATIVE Urine Methadone Screen Cancelled NEGATIVE Ur Barbiturates Screen Cancelled NEGATIVE Ur Phencyclidine Scrn Cancelled NEGATIVE Ur Amphetamines Screen Cancelled NEGATIVE MDMA (Ecstasy) Screen Cancelled NEGATIVE U Benzodiazepines Scrn Cancelled NEGATIVE Urine Cocaine Screen Cancelled NEGATIVE U Cannabinoids Screen Cancelled NEGATIVE Ur Drug Screen Comment Cancelled Ethyl Alcohol 12/31/22 19:50 WBC RBC Hgb Hct MCV MCH MCHC RDW Std Deviation RDW Coeff of Joey Plt Count MPV Immature Gran % (Auto) Neut % (Auto) Lymph % (Auto) Bull[place] % (Auto) Eos % (Auto) Baso % (Auto) Absolute Neuts (auto) Absolute Lymphs (auto) Nucleated RBC % Sodium Potassium Chloride Carbon Dioxide Anion Gap BUN Creatinine Estim Creat Clear Calc Est GFR (MDRD) Af Amer Est GFR (MDRD) Non-Af BUN/Creatinine Ratio Glucose Calcium Total Bilirubin AST ALT Alkaline Phosphatase Total Protein Albumin Globulin Albumin/Globulin Ratio Urine Color Yellow Urine Clarity Clear Urine pH 5.0 Ur Specific [place] 1.025 Urine Protein Negative Urine Glucose (UA) Normal Urine Ketones Negative Urine Occult Blood 10 H Urine Nitrite Negative Urine Bilirubin Negative Urine Urobilinogen Normal Ur Leukocyte Esterase 100 H Urine RBC 0-5 SEEN Urine WBC 5-10 SEEN Ur Squamous Epith Cells 0-5 SEEN Ur Transition Epith Cell Ur Renal Epithelial Cell Calcium Oxalate Crystal Uric Acid Crystals Triple Phos Crystals Other Crystals Amorphous Sediment Urine Bacteria 1+ Hyaline Casts Fine Granular Casts Coarse Granular Casts Waxy Casts RBC Casts WBC Casts Urine Mucus 0 SEEN Urine Trichomonas Urine Yeast Urine Opiates Screen Urine Methadone Screen Ur Barbiturates Screen Ur Phencyclidine Scrn Ur Amphetamines Screen MDMA (Ecstasy) Screen U Benzodiazepines Scrn Urine Cocaine Screen U Cannabinoids Screen Ur Drug Screen Comment Ethyl Alcohol Discharge Plan Triage Chief Complaint: Mental Health ED Provider: Jos Dumont Dx/Rx/DC Orders Clinical Impression: Aggressive behavior due to dementia, Dementia Instructions: ED CAREGIVER SUPPORT for DEMENTIA Prescriptions: No Action cholecalciferol (vitamin D3) 1,000 unit capsule 1,000 unit capsule 1,000 unit PO DAILY docusate sodium [Dulcolax Stool Softener (dss)] 100 mg capsule 100 mg PO DAILY Qty: 30 0RF cjltbtabtizh-Pf-xjmt-minerals 1 EACH tablet 1 ea PO DAILY loperamide 2 mg capsule 2 mg PO DAILY donepezil 10 mg tablet 10 mg PO QHS Rx Instructions: GIVEN AT BEDTIME. thiamine HCl (vitamin B1) 100 mg Tablet 100 mg PO DAILY potassium chloride 20 mEq tablet,ER particles/crystals 40 meq PO DAILY sertraline 25 mg tablet 50 mg PO DAILY lisinopril 5 mg tablet 5 mg PO DAILY gabapentin 100 mg capsule 100 mg PO TID memantine 5 mg tablet 5 mg PO QHS Rx Instructions: GIVEN AT BEDTIME. Eye Multivitamin 2,148 mcg-113 mg-45 mg-17.4mg Tablet 1 tab PO QHS Rx Instructions: GIVEN AT BEDTIME. Primary Care Provider: Jaki Anderson Referrals: Jaki Anderson MD [Primary Care Provider] - Disposition Disposition: Snf Facility Discharge Location: [facility]
[2022-12-31 17:10] LABS: Absolute Lymphocyte Count 1.68 X10^3/uL (0.83-4.51); Absolute Neutrophil Count 5.1 X10^3/uL (2.0-7.7); Basophil# 0.03 X10^3/uL; Basophil% 0.4 % (0-1); Eosinophil# 0.17 X10^3/uL; Eosinophils% 2.3 % (0-5); Hematocrit 37.1 % (37-47); Hemoglobin 11.9 g/dL (12.0-15.0); Lymphocyte # 1.68 X10^3/ul (0.83-4.51); Lymphocyte % 22.4 % (19-41); Mean Corp Hgb Conc 32.1 g/dL (32-36); Mean Corpuscular Hgb 28.1 pg (27.0-32.0); Mean Corpuscular Volume 87.5 fL (81-99); Mean Platelet Vol. 9.4 fl (6.2-12.0); Monocyte# 0.54 X10^3/uL; Monocyte% 7.2 % (0-10); NRBC Flagged by Analyzer 0 % (0-5); Neutrophil # 5.05 X10^3/uL (2.7-7.7); Neutrophil % 67.4 % (47-70); Platelet Count 245 K/mm3 (150-450); RBC Distribution Width CV 15.1 % (11.6-14.6); RBC Distribution Width SD 48.5 fl (35.1-43.9); Red Blood Count 4.24 M/mm3 (4.2-5.4); White Blood Count 7.5 K/mm3 (4.4-11.0)
[2022-12-31 17:23] LABS: Alcohol, Blood (Medical)-Serum < 3.0 mg/dL
[2022-12-31 17:28] LABS: ALB/GLOB Ratio 0.9 RATIO (0.9-2.4); AST(SGOT) 11 U/L (15-37); Alanine Aminotransfer ALT/SGPT 17 U/L (13-56); Albumin, Serum 3.4 g/dL (3.2-5.0); Alkaline Phosphatase 83 U/L (45-117); Anion Gap 3 (5-15); BUN 20 mg/dL (7-18); BUN/Creat Ratio 17.5 RATIO (10-20); Calcium,Total 9.2 mg/dL (8.5-10.1); Chloride 112 mmol/L (98-107); Creatinine, Serum 1.14 mg/dL (0.55-1.02); EST Glomerular Filtration Rate 48 mL/min (>60); Est Glom Filt Rate - Afr Amer 58 mL/min (>60); Estimated Creatinine Clearance 39.08 ml/min; Globulin 3.8 g/dL (2.2-4.2); Glucose 99 mg/dL (74-106); Potassium 4.2 mmol/L (3.5-5.1); Protein, Total 7.2 g/dL (6.4-8.2); Sodium Level 139 mmol/L (136-145)
[2022-12-31 17:45] LABS: Color, Urine Yellow (Yellow); Glucose, Dipstick Normal (Normal); Ketone-Dipstick Negative (Negative); Leukocyte Esterase-Dipstick 500 /ul (Negative); Nitrite-Dipstick Negative (Negative); Occult Blood-Urine 25 /ul (Negative); Protein-Dipstick 30 mg/dl (Negative); Urine Bilirubin Dipstick Negative (Negative); Urine Clarity Clear (Clear); Urine Urobilinogen Normal (Normal)
--- NOTE | 2022-12-31 18:04 | NURSING ---
FAXED PAPERWORK TO CRISIS
[2022-12-31 18:26] VITALS: RESP 16
--- NOTE | 2022-12-31 20:16 | ED.RN ---
CRISIS CAME TO ACCESS PT 2015
[2022-12-31 20:19] LABS: Amphetamine Urine VISTA NEGATIVE (<1000 ng/mL); Barbiturate Urine VISTA NEGATIVE (< 200 ng/mL); Benzodiazepine Urine VISTA NEGATIVE (< 200 ng/mL); Cocaine Urine VISTA NEGATIVE (< 300 ng/mL); Ecstacy Urine VISTA NEGATIVE (< 500 ng/mL); Methadone Urine VISTA NEGATIVE (< 300 ng/mL); PCP Urine VISTA NEGATIVE (< 25 ng/mL); THC Urine VISTA NEGATIVE (< 50 ng/mL); Vista UDS pH Range 5
[2022-12-31 20:35] LABS: Mucous, Urine 0 SEEN /hpf (<or=2+)
[2022-12-31 21:06] LABS: Bacteria 1+ /hpf (None Seen); Color, Urine Yellow (Yellow); Glucose, Dipstick Normal (Normal); Ketone-Dipstick Negative (Negative); Leukocyte Esterase-Dipstick 100 /ul (Negative); Nitrite-Dipstick Negative (Negative); Occult Blood-Urine 10 /ul (Negative); Protein-Dipstick Negative (Negative); Red Blood Cells-Urine 0-5 SEEN /hpf (0-5); Specific Gravity, Urine 1.025 (1.002-1.030); Squamous Epithelial Cells - UA 0-5 SEEN /hpf (5-10); Urine Bilirubin Dipstick Negative (Negative); Urine Clarity Clear (Clear); Urine Urobilinogen Normal (Normal); White Blood Cells 5-10 SEEN /hpf (0-5)
--- NOTE | 2022-12-31 21:18 | ED.RN ---
[facility] ETA [id number]
[2022-12-31 21:32] VITALS: BP 139/63; PULSE 82; RESP 16; O2SAT 95
--- NOTE | 2022-12-31 21:45 | ED.RN ---
2130: Attempted to call report on patient, no answer. Call back number left in voicemail.
== END 2022-12-31 22:24 | disposition skilled nursing facility (03) ==
PROVIDERS: Emergency Provider Emergency Medicine; PCP Internal Medicine; Visit Provider Emergency Medicine
DX: F03.90 Unspecified dementia, unspecified severity, without behavioral disturbance, psychotic disturbance, mood disturbance, and anxiety (principal); F32.A Depression, unspecified; Z79.899 Other long term (current) drug therapy
CPT/HCPCS: 80053; 80307; 81001; 81002; 82077; 85025; 87086; 87088; 99285

== ENCOUNTER → 2023-01-08 | Outpatient (REF) | payer MEDICARE, MEDICAID, SELFPAY ==
[2023-01-08 07:42] LABS: Hematocrit 36.1 % (37-47); Hemoglobin 11.3 g/dL (12.0-15.0); Mean Corp Hgb Conc 31.3 g/dL (32-36); Mean Corpuscular Hgb 27.4 pg (27.0-32.0); Mean Corpuscular Volume 87.4 fL (81-99); Mean Platelet Vol. 9.9 fl (6.2-12.0); Platelet Count 247 K/mm3 (150-450); RBC Distribution Width SD 48.4 fl (35.1-43.9); Red Blood Count 4.13 M/mm3 (4.2-5.4); White Blood Count 6.1 K/mm3 (4.4-11.0)
[2023-01-08 08:01] LABS: Anion Gap 7 (5-15); BUN 19 mg/dL (7-18); BUN/Creat Ratio 20.6 RATIO (10-20); Chloride 110 mmol/L (98-107); Creatinine, Serum 0.92 mg/dL (0.55-1.02); EST Glomerular Filtration Rate 62 mL/min (>60); Est Glom Filt Rate - Afr Amer 75 mL/min (>60); Glucose 99 mg/dL (74-106); Potassium 3.8 mmol/L (3.5-5.1); Sodium Level 140 mmol/L (136-145)
== END ==
LOC: OLS.WHLCAR 05:00
PROVIDERS: PCP Internal Medicine; Visit Provider Family Medicine
DX: G93.41 Metabolic encephalopathy (principal); K59.00 Constipation, unspecified; N39.0 Urinary tract infection, site not specified; R52 Pain, unspecified; I27.20 Pulmonary hypertension, unspecified; F10.20 Alcohol dependence, uncomplicated
CPT/HCPCS: 36415; 80048; 85027

== ENCOUNTER → 2023-01-22 | Outpatient (REF) | payer MEDICARE, MEDICAID, SELFPAY ==
[2023-01-22 08:22] LABS: Hematocrit 37.3 % (37-47); Hemoglobin 11.4 g/dL (12.0-15.0); Mean Corp Hgb Conc 30.6 g/dL (32-36); Mean Corpuscular Hgb 27.3 pg (27.0-32.0); Mean Corpuscular Volume 89.4 fL (81-99); Platelet Count 269 K/mm3 (150-450); RBC Distribution Width SD 48.8 fl (35.1-43.9); Red Blood Count 4.17 M/mm3 (4.2-5.4); White Blood Count 6.4 K/mm3 (4.4-11.0)
[2023-01-22 08:36] LABS: Anion Gap 7 (5-15); BUN 15 mg/dL (7-18); BUN/Creat Ratio 18.2 RATIO (10-20); Calcium,Total 8.6 mg/dL (8.5-10.1); Chloride 110 mmol/L (98-107); Creatinine, Serum 0.82 mg/dL (0.55-1.02); EST Glomerular Filtration Rate 70 mL/min (>60); Est Glom Filt Rate - Afr Amer 85 mL/min (>60); Glucose 93 mg/dL (74-106); Potassium 4.3 mmol/L (3.5-5.1); Sodium Level 144 mmol/L (136-145)
== END ==
LOC: OLS.WHLCAR 05:00
PROVIDERS: PCP Internal Medicine; Visit Provider Internal Medicine
DX: G93.41 Metabolic encephalopathy (principal); K59.00 Constipation, unspecified; N39.0 Urinary tract infection, site not specified; R52 Pain, unspecified; I27.20 Pulmonary hypertension, unspecified; F10.20 Alcohol dependence, uncomplicated
CPT/HCPCS: 36415; 80048; 85027

== ENCOUNTER → 2023-01-29 | Outpatient (REF) | payer MEDICARE, MEDICAID, SELFPAY ==
[2023-01-29 08:54] LABS: Absolute Lymphocyte Count 1.64 X10^3/uL (0.83-4.51); Absolute Neutrophil Count 3.5 X10^3/uL (2.0-7.7); Basophil# 0.03 X10^3/uL; Basophil% 0.5 % (0-1); Eosinophil# 0.19 X10^3/uL; Eosinophils% 3.2 % (0-5); Hematocrit 35.8 % (37-47); Hemoglobin 11.2 g/dL (12.0-15.0); Lymphocyte # 1.64 X10^3/ul (0.83-4.51); Lymphocyte % 27.4 % (19-41); Mean Corp Hgb Conc 31.3 g/dL (32-36); Mean Corpuscular Hgb 27.5 pg (27.0-32.0); Mean Platelet Vol. 10.1 fl (6.2-12.0); Monocyte# 0.55 X10^3/uL; Monocyte% 9.2 % (0-10); NRBC Flagged by Analyzer 0 % (0-5); Neutrophil # 3.54 X10^3/uL (2.7-7.7); Platelet Count 261 K/mm3 (150-450); RBC Distribution Width CV 15.2 % (11.6-14.6); RBC Distribution Width SD 48.9 fl (35.1-43.9); Red Blood Count 4.07 M/mm3 (4.2-5.4)
[2023-01-29 09:08] LABS: ALB/GLOB Ratio 0.8 RATIO (0.9-2.4); AST(SGOT) 13 U/L (15-37); Alanine Aminotransfer ALT/SGPT 15 U/L (13-56); Albumin, Serum 2.9 g/dL (3.2-5.0); Alkaline Phosphatase 78 U/L (45-117); Anion Gap 7 (5-15); BUN 13 mg/dL (7-18); BUN/Creat Ratio 17.4 RATIO (10-20); Calcium,Total 8.8 mg/dL (8.5-10.1); Chloride 109 mmol/L (98-107); Creatinine, Serum 0.75 mg/dL (0.55-1.02); EST Glomerular Filtration Rate 79 mL/min (>60); Est Glom Filt Rate - Afr Amer 95 mL/min (>60); Globulin 3.5 g/dL (2.2-4.2); Glucose 86 mg/dL (74-106); Potassium 4.1 mmol/L (3.5-5.1); Protein, Total 6.4 g/dL (6.4-8.2); Sodium Level 143 mmol/L (136-145)
== END ==
LOC: OLS.WHLCAR 04:00
PROVIDERS: PCP Internal Medicine; Referring Provider Nurse Practitioner Adult Health; Visit Provider Nurse Practitioner Adult Health
DX: F03.90 Unspecified dementia, unspecified severity, without behavioral disturbance, psychotic disturbance, mood disturbance, and anxiety (principal); F41.9 Anxiety disorder, unspecified
CPT/HCPCS: 36415; 80053; 85025

== ENCOUNTER → 2023-02-06 | Outpatient (REF) | payer MEDICARE, MEDICAID, SELFPAY ==
[2023-02-06 08:26] LABS: Hematocrit 40.2 % (37-47); Hemoglobin 12.3 g/dL (12.0-15.0); Mean Corp Hgb Conc 30.6 g/dL (32-36); Mean Corpuscular Hgb 27.2 pg (27.0-32.0); Mean Corpuscular Volume 88.9 fL (81-99); Mean Platelet Vol. 9.6 fl (6.2-12.0); Platelet Count 290 K/mm3 (150-450); RBC Distribution Width CV 15.6 % (11.6-14.6); RBC Distribution Width SD 50.7 fl (35.1-43.9); Red Blood Count 4.52 M/mm3 (4.2-5.4); White Blood Count 6.4 K/mm3 (4.4-11.0)
[2023-02-06 08:39] LABS: Anion Gap 8 (5-15); BUN 16 mg/dL (7-18); BUN/Creat Ratio 19.4 RATIO (10-20); Calcium,Total 9.2 mg/dL (8.5-10.1); Chloride 110 mmol/L (98-107); Creatinine, Serum 0.82 mg/dL (0.55-1.02); EST Glomerular Filtration Rate 70 mL/min (>60); Est Glom Filt Rate - Afr Amer 85 mL/min (>60); Glucose 94 mg/dL (74-106); Potassium 4.5 mmol/L (3.5-5.1); Sodium Level 143 mmol/L (136-145)
== END ==
LOC: OLS.WHLCAR 05:00
PROVIDERS: PCP Internal Medicine; Visit Provider Internal Medicine
DX: I27.20 Pulmonary hypertension, unspecified (principal); F03.911 Unspecified dementia, unspecified severity, with agitation; R13.11 Dysphagia, oral phase; F33.0 Major depressive disorder, recurrent, mild
CPT/HCPCS: 36415; 80048; 85027

== ENCOUNTER → 2023-02-20 | Outpatient (REF) | payer MEDICARE, MEDICAID, SELFPAY ==
[2023-02-20 08:34] LABS: Hematocrit 40.1 % (37-47); Hemoglobin 12.3 g/dL (12.0-15.0); Mean Corp Hgb Conc 30.7 g/dL (32-36); Mean Corpuscular Hgb 27.2 pg (27.0-32.0); Mean Corpuscular Volume 88.7 fL (81-99); Mean Platelet Vol. 9.8 fl (6.2-12.0); Platelet Count 296 K/mm3 (150-450); RBC Distribution Width CV 15.7 % (11.6-14.6); RBC Distribution Width SD 51.5 fl (35.1-43.9); Red Blood Count 4.52 M/mm3 (4.2-5.4); White Blood Count 6.8 K/mm3 (4.4-11.0)
[2023-02-20 09:05] LABS: Anion Gap 6 (5-15); BUN 13 mg/dL (7-18); BUN/Creat Ratio 15.9 RATIO (10-20); Chloride 112 mmol/L (98-107); Creatinine, Serum 0.82 mg/dL (0.55-1.02); EST Glomerular Filtration Rate 71 mL/min (>60); Est Glom Filt Rate - Afr Amer 86 mL/min (>60); Glucose 90 mg/dL (74-106); Potassium 4.1 mmol/L (3.5-5.1); Sodium Level 142 mmol/L (136-145)
== END ==
LOC: OLS.WHLCAR 04:30
PROVIDERS: PCP Internal Medicine; Visit Provider Family Medicine
DX: G93.41 Metabolic encephalopathy (principal); K59.00 Constipation, unspecified; N39.0 Urinary tract infection, site not specified; I27.20 Pulmonary hypertension, unspecified; F10.20 Alcohol dependence, uncomplicated
CPT/HCPCS: 36415; 80048; 85027

== ENCOUNTER → 2023-03-05 | Outpatient (REF) | payer MEDICARE, MEDICAID, SELFPAY ==
[2023-03-05 08:35] LABS: Hematocrit 35.9 % (37-47); Hemoglobin 11.1 g/dL (12.0-15.0); Mean Corp Hgb Conc 30.9 g/dL (32-36); Mean Corpuscular Hgb 27.1 pg (27.0-32.0); Mean Corpuscular Volume 87.6 fL (81-99); Mean Platelet Vol. 9.9 fl (6.2-12.0); Platelet Count 251 K/mm3 (150-450); RBC Distribution Width CV 15.6 % (11.6-14.6); RBC Distribution Width SD 49.8 fl (35.1-43.9); White Blood Count 5.8 K/mm3 (4.4-11.0)
[2023-03-05 08:50] LABS: Anion Gap 4 (5-15); BUN 15 mg/dL (7-18); BUN/Creat Ratio 19.6 RATIO (10-20); Calcium,Total 8.6 mg/dL (8.5-10.1); Chloride 111 mmol/L (98-107); Creatinine, Serum 0.76 mg/dL (0.55-1.02); EST Glomerular Filtration Rate 77 mL/min (>60); Est Glom Filt Rate - Afr Amer 93 mL/min (>60); Glucose 87 mg/dL (74-106); Sodium Level 140 mmol/L (136-145)
== END ==
LOC: OLS.WHLCAR 05:00
PROVIDERS: PCP Internal Medicine; Referring Provider Family Medicine; Visit Provider Family Medicine
DX: G93.41 Metabolic encephalopathy (principal); F03.911 Unspecified dementia, unspecified severity, with agitation; I27.20 Pulmonary hypertension, unspecified; R13.11 Dysphagia, oral phase; F33.0 Major depressive disorder, recurrent, mild; K59.00 Constipation, unspecified
CPT/HCPCS: 36415; 80048; 85027

== ENCOUNTER → 2023-03-19 | Outpatient (REF) | payer MEDICARE, MEDICAID, SELFPAY ==
[2023-03-19 08:07] LABS: Hematocrit 37.4 % (37-47); Hemoglobin 11.6 g/dL (12.0-15.0); Mean Corpuscular Volume 87.2 fL (81-99); Mean Platelet Vol. 9.9 fl (6.2-12.0); Platelet Count 267 K/mm3 (150-450); RBC Distribution Width CV 15.4 % (11.6-14.6); RBC Distribution Width SD 49.4 fl (35.1-43.9); Red Blood Count 4.29 M/mm3 (4.2-5.4); White Blood Count 5.8 K/mm3 (4.4-11.0)
[2023-03-19 08:08] LABS: Anion Gap 4 (5-15); BUN 16 mg/dL (7-18); BUN/Creat Ratio 20.9 RATIO (10-20); Calcium,Total 8.6 mg/dL (8.5-10.1); Chloride 109 mmol/L (98-107); Creatinine, Serum 0.76 mg/dL (0.55-1.02); EST Glomerular Filtration Rate 77 mL/min (>60); Est Glom Filt Rate - Afr Amer 93 mL/min (>60); Glucose 91 mg/dL (74-106); Potassium 4.2 mmol/L (3.5-5.1); Sodium Level 140 mmol/L (136-145)
== END ==
LOC: OLS.WHLCAR 04:00
PROVIDERS: PCP Internal Medicine; Referring Provider Internal Medicine; Visit Provider Internal Medicine
DX: M62.81 Muscle weakness (generalized) (principal)
CPT/HCPCS: 36415; 80048; 85027

== ENCOUNTER → 2023-04-02 | Outpatient (REF) | payer MEDICARE, MEDICAID, SELFPAY ==
[2023-04-02 08:43] LABS: Anion Gap 3 (5-15); BUN 12 mg/dL (7-18); BUN/Creat Ratio 16.4 RATIO (10-20); Calcium,Total 8.7 mg/dL (8.5-10.1); Chloride 110 mmol/L (98-107); Creatinine, Serum 0.73 mg/dL (0.55-1.02); EST Glomerular Filtration Rate 81 mL/min (>60); Est Glom Filt Rate - Afr Amer 98 mL/min (>60); Glucose 91 mg/dL (74-106); Sodium Level 141 mmol/L (136-145)
[2023-04-02 08:44] LABS: Hematocrit 37.6 % (37-47); Hemoglobin 11.8 g/dL (12.0-15.0); Mean Corp Hgb Conc 31.4 g/dL (32-36); Mean Corpuscular Hgb 27.4 pg (27.0-32.0); Mean Corpuscular Volume 87.4 fL (81-99); Mean Platelet Vol. 9.8 fl (6.2-12.0); Platelet Count 253 K/mm3 (150-450); RBC Distribution Width CV 15.2 % (11.6-14.6); White Blood Count 6.1 K/mm3 (4.4-11.0)
== END ==
LOC: OLS.WHLCAR 05:00
PROVIDERS: PCP Internal Medicine; Visit Provider Internal Medicine
DX: M62.81 Muscle weakness (generalized) (principal)
CPT/HCPCS: 36415; 80048; 85027

== ENCOUNTER → 2023-04-16 | Outpatient (REF) | payer MEDICARE, MEDICAID, SELFPAY ==
[2023-04-16 08:05] LABS: Hematocrit 37.7 % (37-47); Hemoglobin 11.9 g/dL (12.0-15.0); Mean Corp Hgb Conc 31.6 g/dL (32-36); Mean Corpuscular Hgb 27.2 pg (27.0-32.0); Mean Corpuscular Volume 86.1 fL (81-99); Mean Platelet Vol. 9.4 fl (6.2-12.0); Platelet Count 256 K/mm3 (150-450); RBC Distribution Width CV 15.4 % (11.6-14.6); RBC Distribution Width SD 48.5 fl (35.1-43.9); Red Blood Count 4.38 M/mm3 (4.2-5.4)
[2023-04-16 08:25] LABS: Anion Gap 5 (5-15); BUN 10 mg/dL (7-18); Calcium,Total 8.7 mg/dL (8.5-10.1); Chloride 110 mmol/L (98-107); Creatinine, Serum 0.77 mg/dL (0.55-1.02); EST Glomerular Filtration Rate 76 mL/min (>60); Est Glom Filt Rate - Afr Amer 92 mL/min (>60); Glucose 98 mg/dL (74-106); Potassium 3.9 mmol/L (3.5-5.1); Sodium Level 141 mmol/L (136-145)
== END ==
LOC: OLS.WHLCAR 05:00
PROVIDERS: PCP Internal Medicine; Visit Provider Internal Medicine
DX: M62.81 Muscle weakness (generalized) (principal)
CPT/HCPCS: 36415; 80048; 85027

== ENCOUNTER → 2023-04-30 | Outpatient (REF) | payer MEDICARE, MEDICAID, SELFPAY ==
[2023-04-30 09:07] LABS: Hematocrit 43.1 % (37-47); Hemoglobin 12.8 g/dL (12.0-15.0); Mean Corp Hgb Conc 29.7 g/dL (32-36); Mean Corpuscular Hgb 26.9 pg (27.0-32.0); Mean Corpuscular Volume 90.7 fL (81-99); Mean Platelet Vol. 10.1 fl (6.2-12.0); Platelet Count 349 K/mm3 (150-450); RBC Distribution Width CV 15.1 % (11.6-14.6); RBC Distribution Width SD 50.4 fl (35.1-43.9); Red Blood Count 4.75 M/mm3 (4.2-5.4); White Blood Count 6.9 K/mm3 (4.4-11.0)
[2023-04-30 09:20] LABS: Anion Gap 4 (5-15); BUN 13 mg/dL (7-18); BUN/Creat Ratio 15.1 RATIO (10-20); Calcium,Total 9.2 mg/dL (8.5-10.1); Chloride 108 mmol/L (98-107); Creatinine, Serum 0.86 mg/dL (0.55-1.02); EST Glomerular Filtration Rate 67 mL/min (>60); Est Glom Filt Rate - Afr Amer 81 mL/min (>60); Glucose 90 mg/dL (74-106); Potassium 3.6 mmol/L (3.5-5.1); Sodium Level 139 mmol/L (136-145)
== END ==
LOC: OLS.WHLCAR 05:00
PROVIDERS: PCP Internal Medicine; Visit Provider Internal Medicine
DX: M62.81 Muscle weakness (generalized) (principal); F03.911 Unspecified dementia, unspecified severity, with agitation; I27.20 Pulmonary hypertension, unspecified; R13.11 Dysphagia, oral phase; F33.0 Major depressive disorder, recurrent, mild
CPT/HCPCS: 36415; 80048; 85027

== ENCOUNTER → 2023-05-28 | Outpatient (REF) | payer MEDICARE, MEDICAID, SELFPAY ==
[2023-05-28 07:34] LABS: Hematocrit 37.5 % (37-47); Hemoglobin 11.7 g/dL (12.0-15.0); Mean Corp Hgb Conc 31.2 g/dL (32-36); Mean Corpuscular Hgb 27.3 pg (27.0-32.0); Mean Corpuscular Volume 87.6 fL (81-99); Mean Platelet Vol. 9.8 fl (6.2-12.0); Platelet Count 266 K/mm3 (150-450); RBC Distribution Width CV 15.6 % (11.6-14.6); RBC Distribution Width SD 49.4 fl (35.1-43.9); Red Blood Count 4.28 M/mm3 (4.2-5.4); White Blood Count 6.9 K/mm3 (4.4-11.0)
[2023-05-28 08:01] LABS: Anion Gap 6 (5-15); BUN 17 mg/dL (7-18); BUN/Creat Ratio 23.5 RATIO (10-20); Calcium,Total 8.8 mg/dL (8.5-10.1); Chloride 111 mmol/L (98-107); Creatinine, Serum 0.72 mg/dL (0.55-1.02); EST Glomerular Filtration Rate 82 mL/min (>60); Est Glom Filt Rate - Afr Amer 99 mL/min (>60); Glucose 91 mg/dL (74-106); Sodium Level 142 mmol/L (136-145)
== END ==
LOC: OLS.WHLCAR 05:00
PROVIDERS: PCP Internal Medicine; Visit Provider Internal Medicine
DX: M62.81 Muscle weakness (generalized) (principal); F03.911 Unspecified dementia, unspecified severity, with agitation; I27.20 Pulmonary hypertension, unspecified; R13.11 Dysphagia, oral phase
CPT/HCPCS: 36415; 80048; 85027

== ENCOUNTER → 2023-06-11 | Outpatient (REF) | payer MEDICARE, MEDICAID, SELFPAY ==
[2023-06-11 09:22] LABS: Hematocrit 36.1 % (37-47); Hemoglobin 11.1 g/dL (12.0-15.0); Mean Corp Hgb Conc 30.7 g/dL (32-36); Mean Corpuscular Hgb 27.1 pg (27.0-32.0); Mean Corpuscular Volume 88.3 fL (81-99); Platelet Count 266 K/mm3 (150-450); RBC Distribution Width CV 15.5 % (11.6-14.6); RBC Distribution Width SD 50.2 fl (35.1-43.9); Red Blood Count 4.09 M/mm3 (4.2-5.4); White Blood Count 6.7 K/mm3 (4.4-11.0)
[2023-06-11 09:50] LABS: Anion Gap 6 (5-15); BUN 13 mg/dL (7-18); BUN/Creat Ratio 17.9 RATIO (10-20); Calcium,Total 8.4 mg/dL (8.5-10.1); Chloride 109 mmol/L (98-107); Creatinine, Serum 0.72 mg/dL (0.55-1.02); EST Glomerular Filtration Rate 81 mL/min (>60); Est Glom Filt Rate - Afr Amer 98 mL/min (>60); Glucose 85 mg/dL (74-106); Potassium 4.1 mmol/L (3.5-5.1); Sodium Level 140 mmol/L (136-145)
== END ==
LOC: OLS.WHLCAR 05:40
PROVIDERS: PCP Internal Medicine; Visit Provider Internal Medicine
DX: M62.81 Muscle weakness (generalized) (principal); F03.911 Unspecified dementia, unspecified severity, with agitation; R13.11 Dysphagia, oral phase; K59.00 Constipation, unspecified
CPT/HCPCS: 36415; 80048; 85027

== ENCOUNTER → 2023-06-25 | Outpatient (REF) | payer MEDICARE, MEDICAID, SELFPAY ==
[2023-06-25 08:27] LABS: Absolute Lymphocyte Count 1.61 X10^3/uL (0.83-4.51); Absolute Neutrophil Count 4.6 X10^3/uL (2.0-7.7); Basophil# 0.03 X10^3/uL; Basophil% 0.4 % (0-1); Eosinophils% 2.8 % (0-5); Hematocrit 37.2 % (37-47); Hemoglobin 11.4 g/dL (12.0-15.0); Lymphocyte # 1.61 X10^3/ul (0.83-4.51); Lymphocyte % 22.4 % (19-41); Mean Corp Hgb Conc 30.6 g/dL (32-36); Mean Corpuscular Volume 87.9 fL (81-99); Mean Platelet Vol. 9.7 fl (6.2-12.0); Monocyte% 9.7 % (0-10); NRBC Flagged by Analyzer 0 % (0-5); Neutrophil # 4.62 X10^3/uL (2.7-7.7); Neutrophil % 64.1 % (47-70); Platelet Count 269 K/mm3 (150-450); RBC Distribution Width CV 15.7 % (11.6-14.6); RBC Distribution Width SD 51.2 fl (35.1-43.9); Red Blood Count 4.23 M/mm3 (4.2-5.4); White Blood Count 7.2 K/mm3 (4.4-11.0)
[2023-06-25 08:50] LABS: Anion Gap 6 (5-15); BUN 15 mg/dL (7-18); BUN/Creat Ratio 19.6 RATIO (10-20); Calcium,Total 8.4 mg/dL (8.5-10.1); Chloride 111 mmol/L (98-107); Creatinine, Serum 0.76 mg/dL (0.55-1.02); EST Glomerular Filtration Rate 76 mL/min (>60); Est Glom Filt Rate - Afr Amer 93 mL/min (>60); Glucose 102 mg/dL (74-106); Sodium Level 141 mmol/L (136-145)
== END ==
LOC: OLS.WHLCAR 05:00
PROVIDERS: PCP Internal Medicine; Visit Provider Internal Medicine
DX: M62.81 Muscle weakness (generalized) (principal); F03.911 Unspecified dementia, unspecified severity, with agitation; I27.20 Pulmonary hypertension, unspecified; R13.11 Dysphagia, oral phase; K59.00 Constipation, unspecified
CPT/HCPCS: 36415; 80048; 85025

== ENCOUNTER → 2023-07-09 | Outpatient (REF) | payer MEDICARE, MEDICAID, SELFPAY ==
[2023-07-09 08:32] LABS: Hematocrit 37.5 % (37-47); Hemoglobin 11.5 g/dL (12.0-15.0); Mean Corp Hgb Conc 30.7 g/dL (32-36); Mean Corpuscular Hgb 26.7 pg (27.0-32.0); Mean Platelet Vol. 9.3 fl (6.2-12.0); Platelet Count 313 K/mm3 (150-450); RBC Distribution Width CV 15.7 % (11.6-14.6); RBC Distribution Width SD 50.3 fl (35.1-43.9); Red Blood Count 4.31 M/mm3 (4.2-5.4); White Blood Count 5.5 K/mm3 (4.4-11.0)
[2023-07-09 08:57] LABS: Anion Gap 6 (5-15); BUN 18 mg/dL (7-18); BUN/Creat Ratio 21.9 RATIO (10-20); Calcium,Total 8.7 mg/dL (8.5-10.1); Chloride 111 mmol/L (98-107); Creatinine, Serum 0.82 mg/dL (0.55-1.02); EST Glomerular Filtration Rate 70 mL/min (>60); Est Glom Filt Rate - Afr Amer 85 mL/min (>60); Glucose 93 mg/dL (74-106); Potassium 4.1 mmol/L (3.5-5.1); Sodium Level 142 mmol/L (136-145)
== END ==
LOC: OLS.WHLCAR 05:00
PROVIDERS: PCP Internal Medicine; Visit Provider Internal Medicine
DX: M62.81 Muscle weakness (generalized) (principal); F03.911 Unspecified dementia, unspecified severity, with agitation; R13.11 Dysphagia, oral phase
CPT/HCPCS: 36415; 80048; 85027

== ENCOUNTER → 2023-07-23 | Outpatient (REF) | payer MEDICARE, MEDICAID, SELFPAY ==
[2023-07-23 08:45] LABS: Hematocrit 35.7 % (37-47); Hemoglobin 10.9 g/dL (12.0-15.0); Mean Corp Hgb Conc 30.5 g/dL (32-36); Mean Corpuscular Hgb 26.9 pg (27.0-32.0); Mean Corpuscular Volume 88.1 fL (81-99); Mean Platelet Vol. 9.8 fl (6.2-12.0); Platelet Count 240 K/mm3 (150-450); RBC Distribution Width CV 15.8 % (11.6-14.6); RBC Distribution Width SD 51.1 fl (35.1-43.9); Red Blood Count 4.05 M/mm3 (4.2-5.4); White Blood Count 5.8 K/mm3 (4.4-11.0)
[2023-07-23 09:05] LABS: Anion Gap 6 (5-15); BUN 14 mg/dL (7-18); BUN/Creat Ratio 19.1 RATIO (10-20); Calcium,Total 8.3 mg/dL (8.5-10.1); Chloride 111 mmol/L (98-107); Creatinine, Serum 0.73 mg/dL (0.55-1.02); EST Glomerular Filtration Rate 80 mL/min (>60); Est Glom Filt Rate - Afr Amer 97 mL/min (>60); Glucose 80 mg/dL (74-106); Potassium 3.8 mmol/L (3.5-5.1); Sodium Level 141 mmol/L (136-145)
== END ==
LOC: OLS.WHLCAR 04:00
PROVIDERS: PCP Internal Medicine; Referring Provider Internal Medicine; Visit Provider Internal Medicine
DX: M62.81 Muscle weakness (generalized) (principal); F03.911 Unspecified dementia, unspecified severity, with agitation; I27.20 Pulmonary hypertension, unspecified; R13.11 Dysphagia, oral phase; K59.00 Constipation, unspecified
CPT/HCPCS: 36415; 80048; 85027

== ENCOUNTER → 2023-08-07 | Outpatient (REF) | payer MEDICARE, MEDICAID, SELFPAY ==
[2023-08-07 09:31] LABS: Hematocrit 37.4 % (37-47); Hemoglobin 11.2 g/dL (12.0-15.0); Mean Corp Hgb Conc 29.9 g/dL (32-36); Mean Corpuscular Hgb 26.3 pg (27.0-32.0); Mean Corpuscular Volume 87.8 fL (81-99); Mean Platelet Vol. 9.7 fl (6.2-12.0); Platelet Count 279 K/mm3 (150-450); RBC Distribution Width CV 15.8 % (11.6-14.6); RBC Distribution Width SD 50.5 fl (35.1-43.9); Red Blood Count 4.26 M/mm3 (4.2-5.4); White Blood Count 6.4 K/mm3 (4.4-11.0)
[2023-08-07 10:03] LABS: Anion Gap 4 (5-15); BUN 17 mg/dL (7-18); Calcium,Total 8.6 mg/dL (8.5-10.1); Chloride 112 mmol/L (98-107); Creatinine, Serum 0.81 mg/dL (0.55-1.02); EST Glomerular Filtration Rate 72 mL/min (>60); Est Glom Filt Rate - Afr Amer 87 mL/min (>60); Glucose 90 mg/dL (74-106); Potassium 3.8 mmol/L (3.5-5.1); Sodium Level 142 mmol/L (136-145)
== END ==
LOC: OLS.WHLCAR 05:00
PROVIDERS: PCP Internal Medicine; Visit Provider Internal Medicine
DX: M62.81 Muscle weakness (generalized) (principal)
CPT/HCPCS: 36415; 80048; 85027

== ENCOUNTER → 2023-08-21 | Outpatient (REF) | payer MEDICARE, MEDICAID, SELFPAY ==
[2023-08-21 09:00] LABS: Hemoglobin 11.7 g/dL (12.0-15.0); Mean Corp Hgb Conc 30.8 g/dL (32-36); Mean Corpuscular Hgb 26.7 pg (27.0-32.0); Mean Corpuscular Volume 86.6 fL (81-99); Mean Platelet Vol. 9.7 fl (6.2-12.0); Platelet Count 290 K/mm3 (150-450); RBC Distribution Width CV 15.9 % (11.6-14.6); RBC Distribution Width SD 50.3 fl (35.1-43.9); Red Blood Count 4.39 M/mm3 (4.2-5.4); White Blood Count 6.5 K/mm3 (4.4-11.0)
[2023-08-21 09:14] LABS: Anion Gap 4 (5-15); BUN 15 mg/dL (7-18); BUN/Creat Ratio 18.7 RATIO (10-20); Calcium,Total 8.9 mg/dL (8.5-10.1); Chloride 112 mmol/L (98-107); EST Glomerular Filtration Rate 72 mL/min (>60); Est Glom Filt Rate - Afr Amer 87 mL/min (>60); Glucose 95 mg/dL (74-106); Potassium 4.4 mmol/L (3.5-5.1); Sodium Level 142 mmol/L (136-145)
== END ==
LOC: OLS.WHLCAR 05:00
PROVIDERS: PCP Internal Medicine; Visit Provider Internal Medicine
DX: M62.81 Muscle weakness (generalized) (principal)
CPT/HCPCS: 36415; 80048; 85027

== ENCOUNTER → 2023-09-04 | Outpatient (REF) | payer MEDICARE, MEDICAID, SELFPAY ==
[2023-09-04 08:08] LABS: Hematocrit 36.9 % (37-47); Hemoglobin 11.1 g/dL (12.0-15.0); Mean Corp Hgb Conc 30.1 g/dL (32-36); Mean Corpuscular Hgb 26.6 pg (27.0-32.0); Mean Corpuscular Volume 88.3 fL (81-99); Mean Platelet Vol. 10.1 fl (6.2-12.0); Platelet Count 255 K/mm3 (150-450); Red Blood Count 4.18 M/mm3 (4.2-5.4); White Blood Count 6.3 K/mm3 (4.4-11.0)
[2023-09-04 08:18] LABS: Anion Gap 3 (5-15); BUN 15 mg/dL (7-18); BUN/Creat Ratio 18.6 RATIO (10-20); Calcium,Total 8.7 mg/dL (8.5-10.1); Chloride 112 mmol/L (98-107); Creatinine, Serum 0.81 mg/dL (0.55-1.02); EST Glomerular Filtration Rate 72 mL/min (>60); Est Glom Filt Rate - Afr Amer 87 mL/min (>60); Glucose 91 mg/dL (74-106); Potassium 3.9 mmol/L (3.5-5.1); Sodium Level 141 mmol/L (136-145)
== END ==
LOC: OLS.WHLCAR 05:50
PROVIDERS: PCP Internal Medicine; Visit Provider Internal Medicine
DX: M62.81 Muscle weakness (generalized) (principal)
CPT/HCPCS: 36415; 80048; 85027

== ENCOUNTER → 2023-09-18 | Outpatient (REF) | payer MEDICARE, MEDICAID, SELFPAY ==
[2023-09-18 08:55] LABS: Hematocrit 37.5 % (37-47); Hemoglobin 11.4 g/dL (12.0-15.0); Mean Corp Hgb Conc 30.4 g/dL (32-36); Mean Corpuscular Hgb 26.1 pg (27.0-32.0); Mean Corpuscular Volume 85.8 fL (81-99); Mean Platelet Vol. 9.9 fl (6.2-12.0); Platelet Count 276 K/mm3 (150-450); RBC Distribution Width CV 15.8 % (11.6-14.6); RBC Distribution Width SD 49.8 fl (35.1-43.9); Red Blood Count 4.37 M/mm3 (4.2-5.4); White Blood Count 7.5 K/mm3 (4.4-11.0)
[2023-09-18 09:07] LABS: Anion Gap 4 (5-15); BUN 13 mg/dL (7-18); BUN/Creat Ratio 16.6 RATIO (10-20); Calcium,Total 8.7 mg/dL (8.5-10.1); Chloride 111 mmol/L (98-107); Creatinine, Serum 0.78 mg/dL (0.55-1.02); EST Glomerular Filtration Rate 74 mL/min (>60); Est Glom Filt Rate - Afr Amer 90 mL/min (>60); Glucose 90 mg/dL (74-106); Potassium 4.2 mmol/L (3.5-5.1); Sodium Level 141 mmol/L (136-145)
== END ==
LOC: OLS.WHLCAR 05:00
PROVIDERS: PCP Internal Medicine; Visit Provider Internal Medicine
DX: M62.81 Muscle weakness (generalized) (principal)
CPT/HCPCS: 36415; 80048; 85027

== ENCOUNTER → 2023-10-02 | Outpatient (REF) | payer MEDICARE, MEDICAID, SELFPAY ==
[2023-10-02 09:19] LABS: Hematocrit 40.2 % (37-47); Hemoglobin 12.3 g/dL (12.0-15.0); Mean Corp Hgb Conc 30.6 g/dL (32-36); Mean Corpuscular Hgb 26.4 pg (27.0-32.0); Mean Corpuscular Volume 86.3 fL (81-99); Mean Platelet Vol. 9.9 fl (6.2-12.0); Platelet Count 311 K/mm3 (150-450); RBC Distribution Width CV 15.9 % (11.6-14.6); RBC Distribution Width SD 50.3 fl (35.1-43.9); Red Blood Count 4.66 M/mm3 (4.2-5.4); White Blood Count 7.6 K/mm3 (4.4-11.0)
[2023-10-02 09:36] LABS: Anion Gap 5 (5-15); BUN 12 mg/dL (7-18); BUN/Creat Ratio 15.3 RATIO (10-20); Calcium,Total 9.1 mg/dL (8.5-10.1); Chloride 110 mmol/L (98-107); Creatinine, Serum 0.78 mg/dL (0.55-1.02); EST Glomerular Filtration Rate 74 mL/min (>60); Est Glom Filt Rate - Afr Amer 90 mL/min (>60); Glucose 88 mg/dL (74-106); Potassium 4.2 mmol/L (3.5-5.1); Sodium Level 139 mmol/L (136-145)
== END ==
LOC: OLS.WHLCAR 05:00
PROVIDERS: PCP Internal Medicine; Visit Provider Internal Medicine
DX: M62.81 Muscle weakness (generalized) (principal)
CPT/HCPCS: 36415; 80048; 85027

== ENCOUNTER → 2023-10-16 | Outpatient (REF) | payer MEDICARE, MEDICAID, SELFPAY ==
[2023-10-16 09:58] LABS: Hematocrit 36.9 % (37-47); Hemoglobin 11.4 g/dL (12.0-15.0); Mean Corp Hgb Conc 30.9 g/dL (32-36); Mean Corpuscular Hgb 26.6 pg (27.0-32.0); Mean Platelet Vol. 9.7 fl (6.2-12.0); Platelet Count 289 K/mm3 (150-450); RBC Distribution Width CV 15.9 % (11.6-14.6); RBC Distribution Width SD 50.1 fl (35.1-43.9); Red Blood Count 4.29 M/mm3 (4.2-5.4); White Blood Count 6.1 K/mm3 (4.4-11.0)
[2023-10-16 10:08] LABS: Anion Gap 6 (5-15); BUN 12 mg/dL (7-18); BUN/Creat Ratio 16.5 RATIO (10-20); Chloride 113 mmol/L (98-107); Creatinine, Serum 0.73 mg/dL (0.55-1.02); EST Glomerular Filtration Rate 81 mL/min (>60); Est Glom Filt Rate - Afr Amer 98 mL/min (>60); Glucose 89 mg/dL (74-106); Potassium 3.9 mmol/L (3.5-5.1); Sodium Level 143 mmol/L (136-145)
== END ==
LOC: OLS.WHLCAR 05:00
PROVIDERS: PCP Internal Medicine; Visit Provider Internal Medicine
DX: M62.81 Muscle weakness (generalized) (principal)
CPT/HCPCS: 36415; 80048; 85027

== ENCOUNTER → 2023-10-30 | Outpatient (REF) | payer MEDICARE, MEDICAID, SELFPAY ==
[2023-10-30 09:28] LABS: Hematocrit 38.5 % (37-47); Hemoglobin 11.9 g/dL (12.0-15.0); Mean Corp Hgb Conc 30.9 g/dL (32-36); Mean Corpuscular Hgb 26.5 pg (27.0-32.0); Mean Corpuscular Volume 85.7 fL (81-99); Mean Platelet Vol. 9.9 fl (6.2-12.0); Platelet Count 311 K/mm3 (150-450); RBC Distribution Width CV 15.9 % (11.6-14.6); RBC Distribution Width SD 49.3 fl (35.1-43.9); Red Blood Count 4.49 M/mm3 (4.2-5.4)
[2023-10-30 10:08] LABS: Anion Gap 4 (5-15); BUN 12 mg/dL (7-18); BUN/Creat Ratio 13.1 RATIO (10-20); Calcium,Total 9.4 mg/dL (8.5-10.1); Chloride 114 mmol/L (98-107); Creatinine, Serum 0.91 mg/dL (0.55-1.02); EST Glomerular Filtration Rate 62 mL/min (>60); Est Glom Filt Rate - Afr Amer 75 mL/min (>60); Glucose 107 mg/dL (74-106); Potassium 4.3 mmol/L (3.5-5.1); Sodium Level 142 mmol/L (136-145)
== END ==
LOC: OLS.WHLCAR 05:00
PROVIDERS: PCP Internal Medicine; Visit Provider Internal Medicine
DX: M62.81 Muscle weakness (generalized) (principal)
CPT/HCPCS: 36415; 80048; 85027

== ENCOUNTER → 2023-11-13 | Outpatient (REF) | payer MEDICARE, MEDICAID, SELFPAY ==
[2023-11-13 08:26] LABS: Hematocrit 37.2 % (37-47); Hemoglobin 11.4 g/dL (12.0-15.0); Mean Corp Hgb Conc 30.6 g/dL (32-36); Mean Corpuscular Hgb 26.5 pg (27.0-32.0); Mean Corpuscular Volume 86.3 fL (81-99); Mean Platelet Vol. 9.9 fl (6.2-12.0); Platelet Count 276 K/mm3 (150-450); RBC Distribution Width CV 15.8 % (11.6-14.6); Red Blood Count 4.31 M/mm3 (4.2-5.4); White Blood Count 6.6 K/mm3 (4.4-11.0)
[2023-11-13 08:38] LABS: Anion Gap 4 (5-15); BUN 12 mg/dL (7-18); BUN/Creat Ratio 15.4 RATIO (10-20); Calcium,Total 8.5 mg/dL (8.5-10.1); Chloride 112 mmol/L (98-107); Creatinine, Serum 0.78 mg/dL (0.55-1.02); EST Glomerular Filtration Rate 75 mL/min (>60); Est Glom Filt Rate - Afr Amer 90 mL/min (>60); Glucose 81 mg/dL (74-106); Potassium 3.9 mmol/L (3.5-5.1); Sodium Level 141 mmol/L (136-145)
== END ==
LOC: OLS.WHLCAR 05:00
PROVIDERS: PCP Internal Medicine; Visit Provider Internal Medicine
DX: M62.81 Muscle weakness (generalized) (principal)
CPT/HCPCS: 36415; 80048; 85027

== ENCOUNTER → 2023-11-27 | Outpatient (REF) | payer MEDICARE, MEDICAID, SELFPAY ==
[2023-11-27 08:05] LABS: Hematocrit 37.3 % (37-47); Hemoglobin 11.8 g/dL (12.0-15.0); Mean Corp Hgb Conc 31.6 g/dL (32-36); Mean Corpuscular Hgb 26.9 pg (27.0-32.0); Mean Corpuscular Volume 85.2 fL (81-99); Mean Platelet Vol. 9.9 fl (6.2-12.0); Platelet Count 287 K/mm3 (150-450); RBC Distribution Width CV 15.8 % (11.6-14.6); RBC Distribution Width SD 49.2 fl (35.1-43.9); Red Blood Count 4.38 M/mm3 (4.2-5.4); White Blood Count 5.7 K/mm3 (4.4-11.0)
[2023-11-27 08:22] LABS: Anion Gap 5 (5-15); BUN 12 mg/dL (7-18); BUN/Creat Ratio 15.4 RATIO (10-20); Calcium,Total 8.8 mg/dL (8.5-10.1); Chloride 111 mmol/L (98-107); Creatinine, Serum 0.78 mg/dL (0.55-1.02); EST Glomerular Filtration Rate 75 mL/min (>60); Est Glom Filt Rate - Afr Amer 90 mL/min (>60); Glucose 92 mg/dL (74-106); Potassium 4.2 mmol/L (3.5-5.1); Sodium Level 141 mmol/L (136-145)
== END ==
LOC: OLS.WHLCAR 05:00
PROVIDERS: PCP Internal Medicine; Visit Provider Internal Medicine
DX: M62.81 Muscle weakness (generalized) (principal)
CPT/HCPCS: 36415; 80048; 85027

== ENCOUNTER → 2023-12-11 | Outpatient (REF) | payer MEDICARE, MEDICAID, SELFPAY ==
[2023-12-11 09:25] LABS: Hematocrit 36.9 % (37-47); Hemoglobin 11.5 g/dL (12.0-15.0); Mean Corp Hgb Conc 31.2 g/dL (32-36); Mean Corpuscular Hgb 26.7 pg (27.0-32.0); Mean Corpuscular Volume 85.8 fL (81-99); Mean Platelet Vol. 10.2 fl (6.2-12.0); Platelet Count 269 K/mm3 (150-450); RBC Distribution Width CV 16.1 % (11.6-14.6); RBC Distribution Width SD 50.8 fl (35.1-43.9); White Blood Count 6.1 K/mm3 (4.4-11.0)
[2023-12-11 09:39] LABS: Anion Gap 4 (5-15); BUN 11 mg/dL (7-18); BUN/Creat Ratio 13.8 RATIO (10-20); Calcium,Total 8.9 mg/dL (8.5-10.1); Chloride 111 mmol/L (98-107); EST Glomerular Filtration Rate 73 mL/min (>60); Est Glom Filt Rate - Afr Amer 88 mL/min (>60); Glucose 87 mg/dL (74-106); Potassium 3.9 mmol/L (3.5-5.1); Sodium Level 141 mmol/L (136-145)
== END ==
LOC: OLS.WHLCAR 05:00
PROVIDERS: PCP Internal Medicine; Visit Provider Internal Medicine
DX: E56.9 Vitamin deficiency, unspecified (principal); F03.911 Unspecified dementia, unspecified severity, with agitation; K59.00 Constipation, unspecified
CPT/HCPCS: 36415; 80048; 85027

== ENCOUNTER → 2024-01-08 | Outpatient (REF) | payer MEDICARE, MEDICAID, SELFPAY ==
[2024-01-08 08:21] LABS: Hematocrit 38.2 % (37-47); Hemoglobin 11.7 g/dL (12.0-15.0); Mean Corp Hgb Conc 30.6 g/dL (32-36); Mean Corpuscular Hgb 26.7 pg (27.0-32.0); Mean Platelet Vol. 9.7 fl (6.2-12.0); Platelet Count 279 K/mm3 (150-450); RBC Distribution Width CV 16.2 % (11.6-14.6); RBC Distribution Width SD 51.6 fl (35.1-43.9); Red Blood Count 4.39 M/mm3 (4.2-5.4); White Blood Count 6.4 K/mm3 (4.4-11.0)
[2024-01-08 08:33] LABS: Anion Gap 3 (5-15); BUN 11 mg/dL (7-18); BUN/Creat Ratio 14.8 RATIO (10-20); Calcium,Total 8.8 mg/dL (8.5-10.1); Chloride 112 mmol/L (98-107); Creatinine, Serum 0.74 mg/dL (0.55-1.02); EST Glomerular Filtration Rate 79 mL/min (>60); Est Glom Filt Rate - Afr Amer 96 mL/min (>60); Glucose 93 mg/dL (74-106); Potassium 4.5 mmol/L (3.5-5.1); Sodium Level 142 mmol/L (136-145)
== END ==
LOC: OLS.WHLCAR 06:45
PROVIDERS: PCP Internal Medicine; Visit Provider Internal Medicine
DX: E56.9 Vitamin deficiency, unspecified (principal); K59.00 Constipation, unspecified; I27.20 Pulmonary hypertension, unspecified
CPT/HCPCS: 36415; 80048; 85027

== ENCOUNTER → 2024-02-05 | Outpatient (REF) | payer MEDICARE, MEDICAID, SELFPAY ==
[2024-02-05 09:19] LABS: Anion Gap 6 (5-15); BUN 15 mg/dL (7-18); BUN/Creat Ratio 16.1 RATIO (10-20); Calcium,Total 9.1 mg/dL (8.5-10.1); Chloride 111 mmol/L (98-107); Creatinine, Serum 0.93 mg/dL (0.55-1.02); EST Glomerular Filtration Rate 61 mL/min (>60); Est Glom Filt Rate - Afr Amer 74 mL/min (>60); Glucose 102 mg/dL (74-106); Potassium 3.8 mmol/L (3.5-5.1); Sodium Level 141 mmol/L (136-145)
[2024-02-05 09:28] LABS: Hematocrit 40.8 % (37-47); Hemoglobin 12.2 g/dL (12.0-15.0); Mean Corp Hgb Conc 29.9 g/dL (32-36); Mean Corpuscular Hgb 26.2 pg (27.0-32.0); Mean Corpuscular Volume 87.6 fL (81-99); Platelet Count 318 K/mm3 (150-450); RBC Distribution Width CV 16.8 % (11.6-14.6); RBC Distribution Width SD 53.6 fl (35.1-43.9); Red Blood Count 4.66 M/mm3 (4.2-5.4); White Blood Count 8.1 K/mm3 (4.4-11.0)
== END ==
LOC: OLS.WHLCAR 05:00
PROVIDERS: PCP Internal Medicine; Visit Provider Internal Medicine
DX: E56.9 Vitamin deficiency, unspecified (principal); F03.911 Unspecified dementia, unspecified severity, with agitation; K59.00 Constipation, unspecified
CPT/HCPCS: 36415; 80048; 85027

== ENCOUNTER → 2024-03-04 | Outpatient (REF) | payer MEDICARE, MEDICAID, SELFPAY ==
[2024-03-04 09:26] LABS: Anion Gap 4 (5-15); BUN 18 mg/dL (7-18); BUN/Creat Ratio 21.7 RATIO (10-20); Calcium,Total 8.9 mg/dL (8.5-10.1); Chloride 111 mmol/L (98-107); Creatinine, Serum 0.83 mg/dL (0.55-1.02); EST Glomerular Filtration Rate 70 mL/min (>60); Est Glom Filt Rate - Afr Amer 84 mL/min (>60); Glucose 95 mg/dL (74-106); Potassium 4.1 mmol/L (3.5-5.1); Sodium Level 140 mmol/L (136-145)
[2024-03-04 09:29] LABS: Hematocrit 36.6 % (37-47); Hemoglobin 11.4 g/dL (12.0-15.0); Mean Corp Hgb Conc 31.1 g/dL (32-36); Mean Corpuscular Hgb 27.1 pg (27.0-32.0); Mean Corpuscular Volume 87.1 fL (81-99); Mean Platelet Vol. 9.8 fl (6.2-12.0); Platelet Count 301 K/mm3 (150-450); RBC Distribution Width CV 16.5 % (11.6-14.6); RBC Distribution Width SD 52.4 fl (35.1-43.9); White Blood Count 7.5 K/mm3 (4.4-11.0)
== END ==
LOC: OLS.WHLCAR 05:50
PROVIDERS: PCP Internal Medicine; Visit Provider Internal Medicine
DX: E56.9 Vitamin deficiency, unspecified (principal)
CPT/HCPCS: 36415; 80048; 85027

== ENCOUNTER → 2024-04-01 | Outpatient (REF) | payer MEDICARE, MEDICAID, SELFPAY ==
[2024-04-01 08:07] LABS: Hemoglobin 11.5 g/dL (12.0-15.0); Mean Corp Hgb Conc 31.1 g/dL (32-36); Mean Corpuscular Hgb 26.8 pg (27.0-32.0); Mean Corpuscular Volume 86.2 fL (81-99); Mean Platelet Vol. 10.1 fl (6.2-12.0); Platelet Count 267 K/mm3 (150-450); RBC Distribution Width CV 15.8 % (11.6-14.6); Red Blood Count 4.29 M/mm3 (4.2-5.4); White Blood Count 6.8 K/mm3 (4.4-11.0)
[2024-04-01 08:24] LABS: Anion Gap 3 (5-15); BUN 17 mg/dL (7-18); BUN/Creat Ratio 18.3 RATIO (10-20); Calcium,Total 8.8 mg/dL (8.5-10.1); Chloride 110 mmol/L (98-107); Creatinine, Serum 0.93 mg/dL (0.55-1.02); EST Glomerular Filtration Rate 61 mL/min (>60); Est Glom Filt Rate - Afr Amer 74 mL/min (>60); Glucose 95 mg/dL (74-106); Potassium 3.9 mmol/L (3.5-5.1); Sodium Level 141 mmol/L (136-145)
== END ==
LOC: OLS.WHLCAR 05:00
PROVIDERS: PCP Internal Medicine; Visit Provider Internal Medicine
DX: E56.9 Vitamin deficiency, unspecified (principal); F03.911 Unspecified dementia, unspecified severity, with agitation; I27.20 Pulmonary hypertension, unspecified; R48.8 Other symbolic dysfunctions
CPT/HCPCS: 36415; 80048; 85027

== ENCOUNTER → 2024-04-29 05:00 | Outpatient (REF) | payer MEDICARE, MEDICAID, SELFPAY ==
[2024-04-29 08:20] LABS: Hematocrit 36.8 % (37-47); Hemoglobin 11.3 g/dL (12.0-15.0); Mean Corp Hgb Conc 30.7 g/dL (32-36); Mean Corpuscular Hgb 26.8 pg (27.0-32.0); Mean Corpuscular Volume 87.4 fL (81-99); Mean Platelet Vol. 9.8 fl (6.2-12.0); Platelet Count 272 K/mm3 (150-450); RBC Distribution Width CV 15.8 % (11.6-14.6); RBC Distribution Width SD 50.1 fl (35.1-43.9); Red Blood Count 4.21 M/mm3 (4.2-5.4); White Blood Count 7.3 K/mm3 (4.4-11.0)
[2024-04-29 08:39] LABS: Anion Gap 5 (5-15); BUN 17 mg/dL (7-18); BUN/Creat Ratio 19.5 RATIO (10-20); Calcium,Total 8.8 mg/dL (8.5-10.1); Chloride 112 mmol/L (98-107); Creatinine, Serum 0.87 mg/dL (0.55-1.02); EST Glomerular Filtration Rate 66 mL/min (>60); Est Glom Filt Rate - Afr Amer 79 mL/min (>60); Glucose 102 mg/dL (74-106); Sodium Level 142 mmol/L (136-145)
== END ==
LOC: OLS.WHLCAR 05:00
PROVIDERS: PCP Internal Medicine; Visit Provider Internal Medicine
DX: E56.9 Vitamin deficiency, unspecified (principal)
CPT/HCPCS: 36415; 80048; 85027

== ENCOUNTER → 2024-05-27 05:00 | Outpatient (REF) | payer MEDICARE, MEDICAID, SELFPAY ==
[2024-05-27 08:27] LABS: Hematocrit 37.4 % (37-47); Hemoglobin 11.5 g/dL (12.0-15.0); Mean Corp Hgb Conc 30.7 g/dL (32-36); Mean Corpuscular Hgb 26.9 pg (27.0-32.0); Mean Corpuscular Volume 87.4 fL (81-99); Mean Platelet Vol. 9.7 fl (6.2-12.0); Platelet Count 291 K/mm3 (150-450); RBC Distribution Width CV 15.4 % (11.6-14.6); RBC Distribution Width SD 49.1 fl (35.1-43.9); Red Blood Count 4.28 M/mm3 (4.2-5.4); White Blood Count 7.3 K/mm3 (4.4-11.0)
[2024-05-27 08:31] LABS: Anion Gap 6 (5-15); BUN 13 mg/dL (7-18); BUN/Creat Ratio 15.2 RATIO (10-20); Calcium,Total 9.1 mg/dL (8.5-10.1); Chloride 112 mmol/L (98-107); Creatinine, Serum 0.85 mg/dL (0.55-1.02); EST Glomerular Filtration Rate 67 mL/min (>60); Est Glom Filt Rate - Afr Amer 81 mL/min (>60); Glucose 105 mg/dL (74-106); Potassium 3.9 mmol/L (3.5-5.1); Sodium Level 141 mmol/L (136-145)
== END ==
LOC: OLS.WHLCAR 05:00
PROVIDERS: PCP Internal Medicine; Visit Provider Internal Medicine
DX: E56.9 Vitamin deficiency, unspecified (principal)
CPT/HCPCS: 36415; 80048; 85027

== ENCOUNTER → 2024-06-24 | Outpatient (REF) | payer MEDICARE, MEDICAID, SELFPAY ==
[2024-06-24 08:25] LABS: Hematocrit 41.2 % (37-47); Hemoglobin 12.5 g/dL (12.0-15.0); Mean Corp Hgb Conc 30.3 g/dL (32-36); Mean Corpuscular Hgb 26.4 pg (27.0-32.0); Mean Corpuscular Volume 87.1 fL (81-99); Mean Platelet Vol. 9.6 fl (6.2-12.0); Platelet Count 305 K/mm3 (150-450); RBC Distribution Width CV 15.6 % (11.6-14.6); RBC Distribution Width SD 49.9 fl (35.1-43.9); Red Blood Count 4.73 M/mm3 (4.2-5.4); White Blood Count 7.6 K/mm3 (4.4-11.0)
[2024-06-24 08:39] LABS: Anion Gap 6 (5-15); BUN 17 mg/dL (7-18); BUN/Creat Ratio 20.7 RATIO (10-20); Calcium,Total 9.4 mg/dL (8.5-10.1); Chloride 113 mmol/L (98-107); Creatinine, Serum 0.82 mg/dL (0.55-1.02); EST Glomerular Filtration Rate 70 mL/min (>60); Est Glom Filt Rate - Afr Amer 85 mL/min (>60); Glucose 99 mg/dL (74-106); Potassium 4.1 mmol/L (3.5-5.1); Sodium Level 144 mmol/L (136-145)
== END ==
LOC: OLS.WHLCAR 05:00
PROVIDERS: PCP Internal Medicine; Visit Provider Internal Medicine
DX: E56.9 Vitamin deficiency, unspecified (principal); R48.8 Other symbolic dysfunctions; I27.20 Pulmonary hypertension, unspecified
CPT/HCPCS: 36415; 80048; 85027

== ENCOUNTER → 2024-07-22 | Outpatient (REF) | payer MEDICARE, MEDICAID, SELFPAY ==
[2024-07-22 08:15] LABS: Hematocrit 38.6 % (37-47); Hemoglobin 11.8 g/dL (12.0-15.0); Mean Corp Hgb Conc 30.6 g/dL (32-36); Mean Corpuscular Hgb 26.5 pg (27.0-32.0); Mean Corpuscular Volume 86.7 fL (81-99); Mean Platelet Vol. 9.9 fl (6.2-12.0); Platelet Count 278 K/mm3 (150-450); RBC Distribution Width SD 51.2 fl (35.1-43.9); Red Blood Count 4.45 M/mm3 (4.2-5.4); White Blood Count 6.6 K/mm3 (4.4-11.0)
[2024-07-22 08:38] LABS: Anion Gap 6 (5-15); BUN 14 mg/dL (7-18); Calcium,Total 8.8 mg/dL (8.5-10.1); Chloride 115 mmol/L (98-107); Creatinine, Serum 0.87 mg/dL (0.55-1.02); EST Glomerular Filtration Rate 66 mL/min (>60); Est Glom Filt Rate - Afr Amer 79 mL/min (>60); Glucose 99 mg/dL (74-106); Potassium 3.9 mmol/L (3.5-5.1); Sodium Level 145 mmol/L (136-145)
== END ==
LOC: OLS.WHLCAR 05:00
PROVIDERS: PCP Internal Medicine; Visit Provider Internal Medicine
DX: E56.9 Vitamin deficiency, unspecified (principal); F03.911 Unspecified dementia, unspecified severity, with agitation; R48.8 Other symbolic dysfunctions; K59.00 Constipation, unspecified
CPT/HCPCS: 36415; 80048; 85027

== ENCOUNTER → 2024-08-19 | Outpatient (REF) | payer MEDICARE, MEDICAID, SELFPAY ==
[2024-08-19 08:27] LABS: Hematocrit 38.3 % (37-47); Hemoglobin 11.7 g/dL (12.0-15.0); Mean Corp Hgb Conc 30.5 g/dL (32-36); Mean Corpuscular Hgb 26.4 pg (27.0-32.0); Mean Corpuscular Volume 86.5 fL (81-99); Mean Platelet Vol. 9.9 fl (6.2-12.0); Platelet Count 262 K/mm3 (150-450); RBC Distribution Width CV 15.9 % (11.6-14.6); RBC Distribution Width SD 50.5 fl (35.1-43.9); Red Blood Count 4.43 M/mm3 (4.2-5.4); White Blood Count 7.4 K/mm3 (4.4-11.0)
[2024-08-19 08:39] LABS: Anion Gap 3 (5-15); BUN 15 mg/dL (7-18); BUN/Creat Ratio 18.7 RATIO (10-20); Chloride 114 mmol/L (98-107); EST Glomerular Filtration Rate 72 mL/min (>60); Est Glom Filt Rate - Afr Amer 88 mL/min (>60); Glucose 96 mg/dL (74-106); Potassium 3.8 mmol/L (3.5-5.1); Sodium Level 143 mmol/L (136-145)
== END ==
LOC: OLS.WHLCAR 05:00
PROVIDERS: PCP Internal Medicine; Visit Provider Internal Medicine
DX: E56.9 Vitamin deficiency, unspecified (principal); F03.911 Unspecified dementia, unspecified severity, with agitation; I27.20 Pulmonary hypertension, unspecified; K59.00 Constipation, unspecified
CPT/HCPCS: 36415; 80048; 85027

== ENCOUNTER → 2024-09-16 04:35 | Outpatient (REF) | payer MEDICARE, MEDICAID, SELFPAY ==
[2024-09-16 08:25] LABS: Hematocrit 38.6 % (37-47); Mean Corp Hgb Conc 31.1 g/dL (32-36); Mean Corpuscular Hgb 26.5 pg (27.0-32.0); Mean Corpuscular Volume 85.2 fL (81-99); Mean Platelet Vol. 10.1 fl (6.2-12.0); Platelet Count 284 K/mm3 (150-450); RBC Distribution Width CV 16.2 % (11.6-14.6); RBC Distribution Width SD 50.8 fl (35.1-43.9); Red Blood Count 4.53 M/mm3 (4.2-5.4); White Blood Count 5.9 K/mm3 (4.4-11.0)
[2024-09-16 08:45] LABS: Anion Gap 5 (5-15); BUN 17 mg/dL (7-18); BUN/Creat Ratio 20.5 RATIO (10-20); Calcium,Total 8.8 mg/dL (8.5-10.1); Chloride 111 mmol/L (98-107); Creatinine, Serum 0.83 mg/dL (0.55-1.02); EST Glomerular Filtration Rate 70 mL/min (>60); Est Glom Filt Rate - Afr Amer 84 mL/min (>60); Glucose 100 mg/dL (74-106); Potassium 3.8 mmol/L (3.5-5.1); Sodium Level 141 mmol/L (136-145)
== END ==
LOC: OLS.WHLCAR 04:35
PROVIDERS: PCP Internal Medicine; Referring Provider Internal Medicine; Visit Provider Internal Medicine
DX: E56.9 Vitamin deficiency, unspecified (principal)
CPT/HCPCS: 36415; 80048; 85027

== ENCOUNTER → 2024-10-13 05:00 | Outpatient (REF) | payer MEDICARE, MEDICAID, SELFPAY ==
[2024-10-13 08:58] LABS: Hemoglobin 11.4 g/dL (12.0-15.0); Mean Corp Hgb Conc 31.7 g/dL (32-36); Mean Corpuscular Hgb 27.1 pg (27.0-32.0); Mean Corpuscular Volume 85.5 fL (81-99); Mean Platelet Vol. 10.1 fl (6.2-12.0); Platelet Count 253 K/mm3 (150-450); RBC Distribution Width SD 50.4 fl (35.1-43.9); Red Blood Count 4.21 M/mm3 (4.2-5.4); White Blood Count 7.1 K/mm3 (4.4-11.0)
[2024-10-13 09:08] LABS: Anion Gap 10 (5-15); BUN 6 mg/dL (7-18); BUN/Creat Ratio 8.2 RATIO (10-20); Calcium,Total 7.3 mg/dL (8.5-10.1); Chloride 111 mmol/L (98-107); Creatinine, Serum 0.74 mg/dL (0.55-1.02); EST Glomerular Filtration Rate 80 mL/min (>60); Est Glom Filt Rate - Afr Amer 96 mL/min (>60); Glucose 73 mg/dL (74-106); Potassium 3.6 mmol/L (3.5-5.1); Sodium Level 141 mmol/L (136-145)
== END ==
LOC: OLS.WHLCAR 05:00
PROVIDERS: PCP Internal Medicine; Visit Provider Internal Medicine
DX: F03.911 Unspecified dementia, unspecified severity, with agitation (principal); I27.20 Pulmonary hypertension, unspecified; E56.9 Vitamin deficiency, unspecified; R52 Pain, unspecified; K59.00 Constipation, unspecified; F33.0 Major depressive disorder, recurrent, mild
CPT/HCPCS: 36415; 80048; 85027

== ENCOUNTER → 2024-11-11 | Outpatient (REF) | payer MEDICARE, MEDICAID, SELFPAY ==
[2024-11-12 07:57] LABS: Mucous, Urine 0 SEEN /hpf (<or=2+)
[2024-11-12 08:02] LABS: Color, Urine Yellow (Yellow); Glucose, Dipstick Normal (Normal); Ketone-Dipstick 5 mg/dl (Negative); Leukocyte Esterase-Dipstick 500 /ul (Negative); Nitrite-Dipstick Negative (Negative); Occult Blood-Urine 25 /ul (Negative); Protein-Dipstick 30 mg/dl (Negative); Specific Gravity, Urine 1.025 (1.002-1.030); Urine Bilirubin Dipstick Negative (Negative); Urine Clarity Turbid (Clear); Urine Urobilinogen 1 mg/dl (Normal)
[2024-11-12 08:16] LABS: Squamous Epithelial Cells - UA 10-25 SEEN /hpf (5-10); White Blood Cells 25-50 SEEN /hpf (0-5)
[2024-11-12 08:17] LABS: Bacteria 2+ /hpf (None Seen)
[2024-11-12 08:48] LABS: Red Blood Cells-Urine 0 SEEN /hpf (0-5)
== END ==
LOC: OLS.WHLCAR 14:00
PROVIDERS: PCP Internal Medicine; Visit Provider Internal Medicine
DX: N39.0 Urinary tract infection, site not specified (principal)
CPT/HCPCS: 81001; 87086; 87088

== ENCOUNTER → 2025-04-14 05:00 | Outpatient (REF) | payer MEDICARE, MEDICAID, SELFPAY ==
--- OUTSIDE RECORDS SUMMARY | 2025-04-14 04:09 | XMS RPT_ITS | CCD ---
Author Organization [facility] Care Team Providers Care Senior Analyst Name Role Phone Dr. Jaki Anderson Primary Care Provider Tickkarli LEAD DRIVER, LEAD DRIVER-C Krissy Attending Provider Dr. Jaki Estrella Primary Care Provider [place]kar[place] LEAD DRIVER, LEAD DRIVER-C Krissy Attending Provider Dr. Jose Raul Dumas Attending Provider [phone] Dr. Jaki Anderson Primary Care Provider T[place]karli LEAD DRIVER, LEAD DRIVER-C Krissy Attending Provider Dr. Jaki Estrella Primary Care Provider [place] LEAD DRIVER, LEAD DRIVER-C Krissy Attending Provider Geo Alex OLS, LEAD DRIVER-C Krissy Attending Provider Dr. Jose Raul Pulliam Attending Provider Dr. Jaki Anderson Primary Care Provider [place] LEAD DRIVER, LEAD DRIVER-C Krissy Attending Provider Dr. Jaki Estrella Primary Care Provider [place] LEAD DRIVER, LEAD DRIVER-C Krissy Attending Provider Dr. Jose Raul Dumas Attending Provider Dr. Jaki Anderson Primary Care Provider [place]karli LEAD DRIVER, LEAD DRIVER-C Krissy Attending Provider Dr. Jaki Estrella Primary Care Provider Dr. Jos eRaul Pulliam Attending Provider [place] LEAD DRIVER, LEAD DRIVER-C Krissy Attending Provider Unav Dr. Jaki Estevez Primary Care Provider [place] LEAD DRIVER, LEAD DRIVER-C Krissy Attending Provider Unav Dr. Jose Raul Adams Attending Provider [phone] Dr. Jaki Anderson Primary Care Provider [place] LEAD DRIVER, LEAD DRIVER-C Krissy Attending Provider Dr. Jose Raul Pulliam Attending Provider [phone] Dr. Jaki Anderson Primary Care Provider [place] LEAD DRIVER, LEAD DRIVER-C Krissy Attending Provider Dr. Jaki Anderson Primary Care Provider Dr. Jose Raul Pulliam Attending Provider [phone] Dr. Jaki Anderson Primary Care Provider [place] LEAD DRIVER, LEAD DRIVER-C Krissy Attending Provider Dr. Jose Raul Pulliam Attending Provider [phone] SEVERO Villegas Attending Provider Monica JERONIMO, Dr. Pollack Primary Care Provider Jose Raul Pulliam MD Attending Provider UnavailJose Raul Palumbo MD Referring Provider UnavailDr. Jose Raul Palumbo MD Attending Provider [phone] Dr. Jaki Anderson MD Primary Care Provider Jose Raul Pulilam MD Attending Provider UnavailDr. Jose Raul Palumbo MD Attending Provider [phone] Tickkarli LEAD DRIVER-CKrissy Attending Provider Dr. Jaki Anderson MD Primary Care Provider Dr. Jose Raul Pulliam MD Attending Provider [phone] Jose Raul Neville Attending UnavailJaki Valero Primary Care Unavailable Jaki Anderson Primary Care Unavailable Oleghe OLS, Efewongbe Attending Unavailabl e Oleghe, Efewongbe Attending Unavailable Monica, Jaki Primary Care Unavailable Oleghe, Efewongbe Attending Unavailable Monica, Jaki Primary Care Unavailable Oleghe, Efewongbe Attending Unavailable Monica, Jaki Primary Care Unavailable [place] LEAD DRIVER, Krissy Attending Unavailable Monica, Jaki Primary Care Unavailable Oleghe, Efewongbe Attending Unavailable Monica, Jaki Primary Care Unavailable [place] LEAD DRIVER, Krissy Attending Unavailable Monica, Jaki Primary Care Unavailable [place] LEAD DRIVER, Krissy Attending Unavailable Monica, Jaki Primary Care Unavailable Monica, Jaki Primary Care Unavailable Oleghe, Efewongbe Attending Unavailable Angelica Edge Attending Unavailable Monica, Jaki Primary Care Unavailable Oleghe OLS, Efewongbe Attending Unavailabl e Monica, Jaki Primary Care Unavailable Oleghe OLS, Efewongbe Attending Unavailabl e Monica, Jaki Primary Care Unavailable Oleghe OLS, Efewongbe Attending Unavailabl e Monica, Jaki Primary Care Unavailable Oleghe OLS, Efewongbe Referring Unavailabl e Oleghe OLS, Efewongbe Attending Unavailabl e Monica, Jaki Primary Care Unavailable Oleghe OLS, Efewongbe Attending Unavailabl e Monica, Jaki Primary Care Unavailable Oleghe OLS, Efewongbe Attending Unavailabl e Monica, Jaki Primary Care Unavailable Oleghe OLS, Efewongbe Attending Unavailabl e Monica, Jaki Primary Care Unavailable Allergies Allergy Classification Reported Allergen(s) Allergy Type Date of Onset Reaction(s) Facility (20 sources) Sulfonamides (Antibiotic); Translations: [Sulfa (Sulfonamide Antibiotics)] Allergy to substance 07-06-2020 passes out [facility] Medications Current Medications Medication Drug Class(es) Dates Sig (Normalized) Sig (Original) acetaminophen 325 mg oral tablet (10 sources) Start: 01-25-2022 Acetaminophen (Tylenol) 325 mg Tablet Active 650 mg PO EVERY 6 HOURS NEEDED as needed for Pain Score 1-10/Temp > 100.7 F 0 0 January 25, 2022 12:00am Start: 01-25-2022 take 2 tablets by [facility] every six hours as needed Acetaminophen (Tylenol) 325 mg Tablet Active 650 MG PO EVERY 6 HOURS NEEDED January 25, 2022 12:00am ascorbic acid 113 mg / beta carotene 7160 mg / cuprous oxide 0.4 mg / dl-alpha tocopheryl acetate 100 unt / zinc oxide 17.4 mg oral tablet (20 sources) Vitamin C Start: 12-31-2022 Vitamins A,C,S-Aeoz-Ccbtsm (Eye Multivitamin) 2,148 mcg-113 mg-45 mg-17.4mg Tablet Active 1 {tbl} PO AT BEDTIME December 31, 2022 12:00am GIVEN AT BEDTIME. cefadroxil 500 mg oral capsule (10 sources) Cephalosporin Antibacterial Start: 01-25-2022 take 1 capsule by mouth twice daily Cefadroxil 500 mg capsule Active 500 mg PO TWICE A DAY January 25, 2022 12:00am cholecalciferol 0.025 mg oral capsule (20 sources) Vitamin D Start: 02-11-2019 take 1 capsule by mouth once daily Cholecalciferol (Vitamin D3) 1,000 unit capsule Active 1000 U PO DAILY February 11, 2019 12:00am docusate sodium 100 mg oral capsule (20 sources) Start: 07-06-2020 take 1 capsule by mouth once daily Docusate Sodium (Dulcolax Stool Softener (Dss)) 100 mg capsule Active 100 mg PO DAILY July 06, 2020 12:00am docusate sodium 50 mg / sennosides, half-way 8.6 mg oral tablet (10 sources) Start: 01-25-2022 Sennosides-Docusate Sodium (Stool Softener-Stimulant Laxat) 8.6-50 mg Tablet Active 2 {tbl} PO TWICE DAILY NEEDED as needed for Constipation January 25, 2022 12:00am donepezil hydrochloride 10 mg oral tablet (20 sources) Start: 12-31-2022 take 1 tablet by mouth at bedtime Donepezil 10 mg tablet Active 10 mg PO AT BEDTIME December 31, 2022 12:00am GIVEN AT BEDTIME. folic acid 1 mg oral tablet (20 sources) Start: 01-25-2022 take 1 tablet by mouth at breakfast Folic Acid 1 mg Tablet Active 1 mg PO WITH BREAKFAST 0 January 25, 2022 12:00am Start: 02-21-2019 End: 05-27-2020 take 1 tablet by mouth once daily Folic Acid 1 MG tablet Discontinued 1 mg PO DAILY February 21, 2019 12:00am May 27, 2020 9:25am gabapentin 100 mg oral capsule (20 sources) Anti-epileptic Agent Start: 12-31-2022 take 1 capsule by mouth three times daily Gabapentin 100 mg capsule Active 100 mg PO THREE TIMES A DAY December 31, 2022 12:00am lisinopril 5 mg oral tablet (20 sources) Angiotensin Converting Enzyme Inhibitor Start: 12-31-2022 take 1 tablet by mouth once daily Lisinopril 5 mg tablet Active 5 mg PO DAILY December 31, 2022 12:00am Start: 01-25-2022 Lisinopril 10 mg Tablet Active 5 mg PO DAILY January 25, 2022 12:00am Hold for SBP less than 130 mmHg Start: 01-25-2022 Lisinopril Act faina 5 MG PO DAILY January 25, 2022 12:00am Hold for SBP less than 130 mmHg loperamide hydrochloride 2 mg oral capsule (20 sources) Opioid Agonist Start: 12-31-2022 take 1 capsule by mouth once daily Loperamide 2 mg capsule Active 2 mg PO DAILY December 31, 2022 12:00am memantine hydrochloride 5 mg oral tablet (20 sources) M-ftzcio-I-aspart ate Receptor Antagonist Start: 12-31-2022 take 1 tablet by mouth at bedtime Memantine 5 mg tablet Active 5 mg PO AT BEDTIME December 31, 2022 12:00am GIVEN AT BEDTIME. Sozvgqtdylkw-Dm-Thfd -Minerals (20 sources) Start: 02-21-2019 Multivitamin-C a-I marina-Minerals Active 1 EACH PO DAILY February 21, 2019 2:47pm Start: 02-21-2019 Multivitamin-C b-Rzvf-Menpmcsm Active 1 EACH PO DAILY February 20, 2019 11:00pm Start: 02-21-2019 Multivitamin-C n-Oiyl-Cynlyriv Active 1 EACH PO DAILY February 21, 2019 12:00am Vvxxpyfpomvd-Iy-Lwri-Mineral s 1 EACH tablet (4 sources) Start: 02-21-2019 take 1 tablet by mouth once daily Mcatjgxafyoa-Qv-Lsmz-Minerals 1 EACH tablet Active 1 NMA PO DAILY February 21, 2019 12:00am microencapsulated potassium chloride 20 meq extended release oral tablet (20 sources) Start: 12-31-2022 take 2 tablets by mouth once daily Potassium Chloride 20 mEq tablet,ER particles/crystals Active 40 meq PO DAILY December 31, 2022 12:00am Start: 01-25-2022 Potassium Chlo ride (Klor-Con M20) 20 mEq Tablet,Er Particles/Crystals Active 40 meq PO DAILY WITH MEALS 10 0 January 25, 2022 12:00am Start: 02-11-2019 End: 05-27-2020 take 2 capsules by mouth once daily Potassium Chloride 10 mEq capsule, extended release Discontinued 20 meq PO DAILY February 11, 2019 12:00am May 27, 2020 9:25am Start: 02-11-2019 End: 05-27-2020 take 20 mEq by mouth once daily Potassium Chloride Discontinued 20 MEQ PO DAILY February 11, 2019 12:00am May 27, 2020 9:25am sertraline 25 mg oral tablet (20 sources) Serotonin Reuptake Inhibitor Start: 12-31-2022 take 2 tablets by mouth once daily Sertraline 25 mg tablet Active 50 mg PO DAILY December 31, 2022 12:00am Start: 12-31-2022 take 50 mg by mouth once daily Sertraline Active 50 MG PO DAILY December 31, 2022 12:00am thiamine 100 mg oral tablet (20 sources) Start: 01-25-2022 take 1 tablet by mouth once daily Thiamine Hcl (Vitamin B1) 100 mg Tablet Active 100 mg PO DAILY December 31, 2022 12:00am Start: 02-21-2019 End: 05-27-2020 take 1 tablet by mouth once daily Thiamine Hcl (Vitamin B1) 100 MG tablet Discontinued 100 mg PO DAILY February 21, 2019 12:00am May 27, 2020 9:25am Completed/Discontinued Medications Medication Drug Class(es) Dates Sig (Normalized) Sig (Original) acetaminophen 325 mg / oxyCODONE hydrochloride 5 mg oral tablet (20 sources) Opioid Agonist Start: 02-24-2019 End: 03-02-2019 Oxycodone-Acetamino phen 1 TABLET tablet Discontinued 1 - 2 {tbl} PO EVERY 4 HOURS NEEDED as needed for Pain 30 6 February 24, 2019 12:00am March 01, 2019 12:00am March 02, 2019 12:09am Benign neoplasm of right breast Start: 02-24-2019 End: 03-02-2019 take 1 tablet by mouth every four hours as needed Oxycodone-Acetaminophen Discontinued 1 - 2 TABLET PO EVERY 4 HOURS NEEDED 30 6 February 24, 2019 12:00am March 02, 2019 12:09am levothyroxine sodium 0.05 mg oral capsule (20 sources) l-Thyroxine Start: 02-11-2019 End: 05-27-2020 take 1 capsule by mouth once daily Levothyroxine 50 mcg capsule Discontinued 50 ug PO DAILY February 11, 2019 12:00am May 27, 2020 9:25am Problems Active Problems Problem Classification Problem Date Documented Date Episodic/Chronic Cancer of colon (20 sources) History of malignant neoplasm of colon; Translations: [Personal history of other malignant neoplasm of large intestine] 07-06-2020 Episodic Cataract (20 sources) Bilateral cataracts; Translations: [Unspecified cataract] 05-25-2020 Chronic Deficiency and other anemia (20 sources) Anemia; Translations: [Anemia, unspecified] 05-25-2020 Episodic Delirium, dementia, and amnestic and other cognitive disorders (20 sources) 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; Translations: [Aggressive behavior due to dementia] 12-31-2022 Chronic Mood disorders (1 source) Major depressive disorder, recurrent, mild; Translations: [Major depressive disorder, recurrent, mild] Onset: 10-21-2024 Chronic Other and unspecified benign neoplasm (20 sources) Intraductal papilloma of right breast; Translations: [Benign neoplasm of right breast] 02-28-2019 Episodic Other diseases of kidney and ureters (20 sources) Kidney disease; Translations: [Disorder of kidney and ureter, unspecified] 05-25-2020 Episodic Other ear and sense organ disorders (20 sources) Hearing loss; Translations: [Unspecified hearing loss, unspecified ear] 05-25-2020 Chronic Other eye disorders (20 sources) H/O: L cataract extraction; Translations: [Cataract extraction status, left eye] 02-24-2019 Episodic Other injuries and conditions due to external causes (20 sources) Fracture of bone; Translations: [Other injury of unspecified body region, initial encounter] 05-25-2020 Episodic Other nervous system disorders (10 sources) Disorder of brain; Translations: [Encephalopathy, unspecified] 10-12-2023 Chronic Other screening for suspected conditions (not mental disorders or infectious disease) (20 sources) Mammography abnormal; Translations: [Other abnormal and inconclusive findings on diagnostic imaging of breast] 02-24-2019 Episodic Pulmonary heart disease (2 sources) Pulmonary hypertension, unspecified; Translations: [Pulmonary hypertension, unspecified] Onset: 09-04-2024 Chronic Residual codes; unclassified (20 sources) History of colectomy; Translations: [Acquired absence of other specified parts of digestive tract] 02-24-2019 Episodic Residual codes; unclassified (20 sources) Past history of procedure; Translations: [Other specified postprocedural states] 02-24-2019 Episodic Comment on above: 02/14/2019 Residual codes; unclassified (10 sources) Delirium; Translations: [Disorientation, unspecified] 10-12-2023 Episodic Thyroid disorders (20 sources) Disorder of thyroid gland; Translations: [Disorder of thyroid, unspecified] 02-24-2019 Episodic Unclassified (20 sources) History of chronic constipation 07-06-2020 Unclassified (2 sources) Unspecified dementia, unspecified severity, with agitation; Translations: [Unspecified dementia, unspecified severity, with agitation] Onset: 09-05-2024 Past or Other Problems Problem Classification Problem Date Documented Da te Episodic/Chronic Nutritional deficiencies (2 sources) Vitamin deficiency, unspecified; Translations: [Vitamin deficiency, unspecified] Onset: 09-05-2024 Episodic Other gastrointestinal disorders (2 sources) Constipation, unspecified; Translations: [Constipation, unspecified] Onset: 09-05-2024 Episodic Other nervous system disorders (2 sources) Other symbolic dysfunctions; Translations: [Other symbolic dysfunctions] Onset: 05-22-2024 Episodic Residual codes; unclassified (2 sources) Pain, unspecified; Translations: [Pain, unspecified] Onset: 09-04-2024 Episodic Urinary tract infections (1 source) Urinary tract infection, site not specified; Translations: [Urinary tract infection, site not specified] Onset: 12-10-2024 Episodic Results Test Name Value Interpretation Reference Range Facility Bilirubin Test strip Ql (U)O rdered By: Jose Raul Pulliam on 11-11-2024 Bilirubin Ql (U) Negative Negative [facility] Epithelial cells.squamous LM Ql (Urine sed)Ordered By: Jose Raul Pulliam on 11-11-2024 Epithelial cells.squamous LM.HPF (Urine sed) [#/Area] 10 /[HPF] 5-10 [facility] Glucose Ql (U)Ordered By: Melia Pulliam on 11-11-2024 Urine Glucose (UA) Normal mg/dl Normal [facility] Ketones Test strip Ql (U)Ord ered By: Jose Raul Pulliam on 11-11-2024 Ketones Ql (U) 5 mg/dl High Negative [facility] Microscopic analysis of urin e for red blood cells (RBC)Ordered By: Jose Raul Pulliam on 11-11-2024 Microscopic analysis of urine for red blood cells (RBC) 0 SEEN /hpf 0-5 [facility] Urine RBC 0 SEEN /hpf 0-5 [facility] Mucus LM Ql (Urine sed)Order ed By: Jose Raul Pulliam on 11-11-2024 Mucus Ql (Urine sed) 0 SEEN /hpf [facility] Nitrite Test strip Ql (U)Ord ered By: Jose Raul Pulliam on 11-11-2024 Nitrite Ql (U) Negative Negative [facility] Protein Test strip Ql (U)Ord ered By: Jose Raul Pulliam on 11-11-2024 Protein Ql (U) 30 mg/dl High Negative [facility] Squamous epithelial cells de tection in urine sediment by light microscopyOrdered By: Jose Raul Pulliam on 11-11-2024 Epithelial cells.squamous LM Ql (Urine sed) 10-25 SEEN /hpf 5-10 [facility] Urine blood detectionOrdered By: Jose Raul Pulliam on 11-11-2024 Urine Occult Blood 25 /ul High Negative [facility] Urine clarityOrdered By: Sam Pulliam on 11-11-2024 Clarity (U) Turbid Clear [facility] Urine color determinationOrd ered By: Jose Raul Pulliam on 11-11-2024 Color (U) Yellow Yellow [facility] Urine cultureOrdered By: Sam Pulliam on 11-11-2024 Bacteria identified Cx Nom (U) Positive Abnormal [facility] Urine glucose detectionOrder ed By: Jose Raul Pulliam on 11-11-2024 Glucose Ql (U) Normal mg/dl Normal [facility] Urine leukocyte esterase det ection by dipstickOrdered By: Jose Raul Pulliam on 11-11-2024 Leukocyte esterase Test strip Ql (U) 500 /ul High Negative [facility] Urine pHOrdered By: Donny Pulliam on 11-11-2024 pH (U) 6.0 [pH] 5.0 - 8.0 [facility] Urine sediment bacteria coun t by microscopy (number/high power field)Ordered By: Jose Raul Pulliam on 11-11-2024 Bacteria LM.HPF (Urine sed) [#/Area] 2 /[HPF] None Seen [facility] Urine specific gravity measu rementOrdered By: Jose Raul Pulliam on 11-11-2024 Specific gravity (U) [Rel density] 1.025 1.002-1.030 [facility] Urine urobilinogen measureme ntOrdered By: Jose Raul Pulliam on 11-11-2024 Urobilinogen Ql (U) 1 mg/dl High Normal [facility] Urobilinogen Ql (U)Ordered B y: Jose Raul Pulliam on 11-11-2024 Urobilinogen (U) [Mass/Vol] 1 mg/dL High Normal [facility] White blood cell countOrdere d By: Jose Raul Pulliam on 11-11-2024 Urine WBC 25-50 SEEN /hpf 0-5 [facility] White blood cell count 25-50 SEEN /hpf 0-5 [facility] Blood urea nitrogen (BUN)/cr eatinine ratioOrdered By: Jose Raul Pulliam on 10-13-2024 Urea nitrogen/Creatinine [Mass ratio] 8.2 mg/mg Low 10-20 [facility] Carbon dioxide measurementOr dered By: Jose Raul Pulliam on 10-13-2024 CO2 [Moles/Vol] 20.0 mmol/L Low 21.0-32.0 [facility] Chloride measurementOrdered By: Jose Raul Pulliam on 10-13-2024 Chloride [Moles/Vol] 111 mmol/L High 98-107 [facility] Erythrocyte distribution wid th (RBC) [Ratio]Ordered By: Jose Raul Pulliam on 10-13-2024 Erythrocyte distribution width (RBC) [Entitic vol] 50.4 fL High 35.1-43.9 [facility] Erythrocyte distribution wid th ratioOrdered By: Jose Raul Pulliam on 10-13-2024 Erythrocyte distribution width (RBC) [Ratio] 16.0 % High 11.6-14.6 [facility] Estimated glomerular filtrat ion rate (GFR) AmericanOrdered By: Jose Raul Pulliam on 10-13-2024 Estimated GFR (MDRD) Amer 96 mL/min >60 [facility] Comment on above: GFR Calc Glomerular filtration rate ( GFR) estimationOrdered By: Jose Raul Pulliam on 10-13-2024 Estimated GFR (MDRD) Non-Af Amer 80 mL/min >60 [facility] Comment on above: Non- GFR Calc Glucose measurementOrdered B y: Jose Raul Pulliam on 10-13-2024 Glucose [Mass/Vol] 73 mg/dL Low 74-106 [facility] Hematocrit Auto (Bld) [Volum e fraction]Ordered By: Jose Raul Pulliam on 10-13-2024 Hematocrit (Bld) [Volume fraction] 36.0 % Low 37-47 [facility] Hemoglobin measurementOrdere d By: Jose Raul Pulliam on 10-13-2024 Hemoglobin (Bld) [Mass/Vol] 11.4 g/dL Low 12.0-15.0 [facility] MCV (mean corpuscular volume ) determinationOrdered By: Jose Raul Pulliam on 10-13-2024 MCV (RBC) [Entitic vol] 85.5 fL 81-99 [facility] Mean corpuscular hemoglobin (MCH) determinationOrdered By: leandra Pulliam on 10-13-2024 MCH (RBC) [Entitic mass] 27.1 pg 27.0-32.0 [facility] Mean corpuscular hemoglobin concentration (MCHC) determinationOrdered By: leandra Pulliam on 10-13-2024 MCHC (RBC) [Mass/Vol] 31.7 g/dL Low 32-36 [facility] Mean platelet volume determi nationOrdered By: Jose Raul Pulliam on 10-13-2024 Platelet mean volume (Bld) [Entitic vol] 10.1 fL 6.2-12.0 [facility] Platelet countOrdered By: Melia diandramarisa Pulliam on 10-13-2024 Platelets (Bld) [#/Vol] 253 10*3/uL 150-450 [facility] Potassium measurementOrdered By: Jose Raul Pulliam on 10-13-2024 Potassium [Moles/Vol] 3.6 mmol/L 3.5-5.1 [facility] RBC Auto (Bld) [#/Vol]Ordere d By: Jose Raul Pulliam on 10-13-2024 RBC (Bld) [#/Vol] 4.21 10*6/uL 4.2-5.4 [facility] Serum anion gap measurementO rdered By: Jose Raul Pulliam on 10-13-2024 Anion gap [Moles/Vol] 10 mmol/L 5-15 [facility] Serum or plasma calcium milagros urement (mass/volume)Ordered By: Jose Raul Pulliam on 10-13-2024 Calcium [Mass/Vol] 7.3 mg/dL Low 8.5-10.1 [facility] Serum or plasma creatinine m easurement (mass/volume)Ordered By: Jose Raul Pulliam on 10-13-2024 Creatinine [Mass/Vol] 0.74 mg/dL 0.55-1.02 [facility] Comment on above: The validity of the calculated GFR & GFRAA in patients over 70 years has not been determined. Clinical correlation is essential. Serum or plasma urea nitroge n measurement (mass/volume)Ordered By: Jose Raul Pulliam on 10-13-2024 Urea nitrogen [Mass/Vol] 6 mg/dL Low 7-18 [facility] Sodium levelOrdered By: Franky floresjessenia Heraclio on 10-13-2024 Sodium [Moles/Vol] 141 mmol/L 136-145 [facility] White blood cell (WBC) count Ordered By: Jose Raul Pulliam on 10-13-2024 WBC (Bld) [#/Vol] 7.1 10*3/uL 4.4-11.0 [facility] Blood urea nitrogen (BUN)/cr eatinine ratioOrdered By: Jose Raul Pulliam on 09-16-2024 Urea nitrogen/Creatinine [Mass ratio] 20.5 mg/mg High 10-20 [facility] Carbon dioxide measurementOr dered By: Jose Raul Pulliam on 09-16-2024 CO2 [Moles/Vol] 25.0 mmol/L 21.0-32.0 [facility] Chloride measurementOrdered By: Jose Raul Pulliam on 09-16-2024 Chloride [Moles/Vol] 111 mmol/L High 98-107 [facility] Erythrocyte distribution wid th (RBC) [Ratio]Ordered By: Jose Raul Pulliam on 09-16-2024 Erythrocyte distribution width (RBC) [Entitic vol] 50.8 fL High 35.1-43.9 [facility] Erythrocyte distribution wid th ratioOrdered By: Jose Raul Pulliam on 09-16-2024 Erythrocyte distribution width (RBC) [Ratio] 16.2 % High 11.6-14.6 [facility] Estimated glomerular filtrat ion rate (GFR) AmericanOrdered By: Jose Raul Pulliam on 09-16-2024 Estimated GFR (MDRD) Amer 84 mL/min >60 [facility] Comment on above: GFR Calc Glomerular filtration rate ( GFR) estimationOrdered By: Jose Raul Pulliam on 09-16-2024 Estimated GFR (MDRD) Non-Af Amer 70 mL/min >60 [facility] Comment on above: Non- GFR Calc Glucose measurementOrdered B y: Jose Raul Pulliam on 09-16-2024 Glucose [Mass/Vol] 100 mg/dL 74-106 [facility] Comment on above: Fasting Glucose resu lt from 100 to 125 mg/dL suggests IMPAIRED HOMEOSTASIS per A.D.A. criteria. Hematocrit Auto (Bld) [Volum e fraction]Ordered By: Jose Raul Pulliam on 09-16-2024 Hematocrit (Bld) [Volume fraction] 38.6 % 37-47 [facility] Hemoglobin measurementOrdere d By: Jose Raul Pulliam on 09-16-2024 Hemoglobin (Bld) [Mass/Vol] 12.0 g/dL 12.0-15.0 [facility] MCV (mean corpuscular volume ) determinationOrdered By: Jose Raul Pulliam on 09-16-2024 MCV (RBC) [Entitic vol] 85.2 fL 81-99 [facility] Mean corpuscular hemoglobin (MCH) determinationOrdered By: Jose Raul Pulliam on 09-16-2024 MCH (RBC) [Entitic mass] 26.5 pg Low 27.0-32.0 [facility] Mean corpuscular hemoglobin concentration (MCHC) determinationOrdered By: Jose Raul Pulliam on 09-16-2024 MCHC (RBC) [Mass/Vol] 31.1 g/dL Low 32-36 [facility] Mean platelet volume determi nationOrdered By: Jose Raul Pulliam on 09-16-2024 Platelet mean volume (Bld) [Entitic vol] 10.1 fL 6.2-12.0 [facility] Platelet countOrdered By: Melia Pulliam on 09-16-2024 Platelets (Bld) [#/Vol] 284 10*3/uL 150-450 [facility] Potassium measurementOrdered By: Jose Raul Pulliam on 09-16-2024 Potassium [Moles/Vol] 3.8 mmol/L 3.5-5.1 [facility] RBC Auto (Bld) [#/Vol]Ordere d By: Jose Raul Pulliam on 09-16-2024 RBC (Bld) [#/Vol] 4.53 10*6/uL 4.2-5.4 [facility] Serum anion gap measurementO rdered By: Jose Raul Pulliam on 09-16-2024 Anion gap [Moles/Vol] 5 mmol/L 5-15 [facility] Serum or plasma calcium milagros urement (mass/volume)Ordered By: Jose Raul Pulliam on 09-16-2024 Calcium [Mass/Vol] 8.8 mg/dL 8.5-10.1 [facility] Serum or plasma creatinine m easurement (mass/volume)Ordered By: Jose Raul Pulliam on 09-16-2024 Creatinine [Mass/Vol] 0.83 mg/dL 0.55-1.02 [facility] Comment on above: The validity of the calculated GFR & GFRAA in patients over 70 years has not been determined. Clinical correlation is essential. Serum or plasma urea nitroge n measurement (mass/volume)Ordered By: Jose Raul Pulliam on 09-16-2024 Urea nitrogen [Mass/Vol] 17 mg/dL 7-18 [facility] Sodium levelOrdered By: Franky Pulliam on 09-16-2024 Sodium [Moles/Vol] 141 mmol/L 136-145 [facility] White blood cell (WBC) count Ordered By: Jose Raul Pulliam on 09-16-2024 WBC (Bld) [#/Vol] 5.9 10*3/uL 4.4-11.0 [facility] Blood urea nitrogen (BUN)/cr eatinine ratioOrdered By: Jose Raul Pulliam on 08-19-2024 Urea nitrogen/Creatinine [Mass ratio] 18.7 mg/mg 10-20 [facility] Carbon dioxide measurementOr dered By: Jose Raul Pulliam on 08-19-2024 CO2 [Moles/Vol] 27.0 mmol/L 21.0-32.0 [facility] Chloride measurementOrdered By: Jose Raul Pulliam on 08-19-2024 Chloride [Moles/Vol] 114 mmol/L High 98-107 [facility] Erythrocyte distribution wid th (RBC) [Ratio]Ordered By: Jose Raul Pulliam on 08-19-2024 Erythrocyte distribution width (RBC) [Entitic vol] 50.5 fL High 35.1-43.9 [facility] Erythrocyte distribution wid th ratioOrdered By: Jose Raul Pulliam on 08-19-2024 Erythrocyte distribution width (RBC) [Ratio] 15.9 % High 11.6-14.6 [facility] Estimated glomerular filtrat ion rate (GFR) AmericanOrdered By: Jose Raul Pulliam on 08-19-2024 Estimated GFR (MDRD) Amer 88 mL/min >60 [facility] Comment on above: GFR Calc Glomerular filtration rate ( GFR) estimationOrdered By: Jose Raul Pulliam on 08-19-2024 Estimated GFR (MDRD) Non-Af Amer 72 mL/min >60 [facility] Comment on above: Non- GFR Calc Glucose measurementOrdered B y: Jose Raul Pulliam on 08-19-2024 Glucose [Mass/Vol] 96 mg/dL 74-106 [facility] Hematocrit Auto (Bld) [Volum e fraction]Ordered By: Meliadiandramarisa Carltonlars on 08-19-2024 Hematocrit (Bld) [Volume fraction] 38.3 % 37-47 [facility] Hemoglobin measurementOrdere d By: Jose Raul Carltonlars on 08-19-2024 Hemoglobin (Bld) [Mass/Vol] 11.7 g/dL Low 12.0-15.0 [facility] MCV (mean corpuscular volume ) determinationOrdered By: Meliadiandracarolynjennifer Vincentjocelynjessenia on 08-19-2024 MCV (RBC) [Entitic vol] 86.5 fL 81-99 [facility] Mean corpuscular hemoglobin (MCH) determinationOrdered By: Meliadiandramarisa Carltonjocelynjessenia on 08-19-2024 MCH (RBC) [Entitic mass] 26.4 pg Low 27.0-32.0 [facility] Mean corpuscular hemoglobin concentration (MCHC) determinationOrdered By: Meliadiandramarisa Carltonlars on 08-19-2024 MCHC (RBC) [Mass/Vol] 30.5 g/dL Low 32-36 [facility] Mean platelet volume determi nationOrdered By: Meliadiandramarisa Carltonjocelynjessenia on 08-19-2024 Platelet mean volume (Bld) [Entitic vol] 9.9 fL 6.2-12.0 [facility] Platelet countOrdered By: Melia leandra Carltonlars on 08-19-2024 Platelets (Bld) [#/Vol] 262 10*3/uL 150-450 [facility] Potassium measurementOrdered By: Meliadiandracarolynjennifer Vincentjocelynjessenia on 08-19-2024 Potassium [Moles/Vol] 3.8 mmol/L 3.5-5.1 [facility] RBC Auto (Bld) [#/Vol]Ordere d By: Meliadiandramarisa Carltonjocelynjessenia on 08-19-2024 RBC (Bld) [#/Vol] 4.43 10*6/uL 4.2-5.4 [facility] Serum anion gap measurementO rdered By: Meliadiandramarisa Pulliam on 08-19-2024 Anion gap [Moles/Vol] 3 mmol/L Low 5-15 [facility] Serum or plasma calcium milagros urement (mass/volume)Ordered By: Jose Raul Pulliam on 08-19-2024 Calcium [Mass/Vol] 9.0 mg/dL 8.5-10.1 [facility] Serum or plasma creatinine m easurement (mass/volume)Ordered By: Jose Raul Pulliam on 08-19-2024 Creatinine [Mass/Vol] 0.80 mg/dL 0.55-1.02 [facility] Comment on above: The validity of the calculated GFR & GFRAA in patients over 70 years has not been determined. Clinical correlation is essential. Serum or plasma urea nitroge n measurement (mass/volume)Ordered By: Jose Raul Pulliam on 08-19-2024 Urea nitrogen [Mass/Vol] 15 mg/dL 7-18 [facility] Sodium levelOrdered By: Meliadiandra marisa Carltonjocelynjessenia on 08-19-2024 Sodium [Moles/Vol] 143 mmol/L 136-145 [facility] White blood cell (WBC) count Ordered By: Frankycarolynjennifer Vincentjocelynjessenia on 08-19-2024 WBC (Bld) [#/Vol] 7.4 10*3/uL 4.4-11.0 [facility] Basophil percentageOrdered B y: Jose Raul Pulliam on 12-11-2023 Chloride [Moles/Vol] 111 mmol/L 98-107 [facility] Glucose [Mass/Vol] 87 mg/dL 74-106 [facility] Hemoglobin (Bld) [Mass/Vol] 11.5 g/dL 12.0-15.0 [facility] Potassium [Moles/Vol] 3.9 mmol/L 3.5-5.1 [facility] Comment on above: Slight Hemolysis, Re sult may be falsely increased. Sodium [Moles/Vol] 141 mmol/L 136-145 [facility] WBC (Bld) [#/Vol] 6.1 10*3/uL 4.4-11.0 [facility] Determination of erythrocyte mean corpuscular volume (MCV)Ordered By: Jose Raul Pulliam on 12-11-2023 MCV (RBC) [Entitic vol] 85.8 fL 81-99 [facility] Erythrocyte distribution wid th ratioOrdered By: Jose Raul Pulliam on 12-11-2023 Erythrocyte distribution width (RBC) [Ratio] 16.1 % 11.6-14.6 [facility] Erythrocyte distribution wid th standard deviationOrdered By: Frankyfederalsburgjennifer Pulliam on 12-11-2023 Erythrocyte distribution width (RBC) [Entitic vol] 50.8 fL 35.1-43.9 [facility] Hematocrit Auto (Bld) [Volum e fraction]Ordered By: Jose Raul Pulliam on 12-11-2023 Hematocrit (Bld) [Volume fraction] 36.9 % 37-47 [facility] Laboratory - Chemistry and C hemistry - challengeOrdered By: Meliapiedmont rockdalejennifer Pulliam on 12-11-2023 CO2 [Moles/Vol] 26.0 mmol/L 21.0-32.0 [facility] Urea nitrogen/Creatinine [Mass ratio] 13.8 mg/mg 10-20 [facility] Laboratory - Hematology and Cell countsOrdered By: Jose Raul Pulliam on 12-11-2023 MCH (RBC) [Entitic mass] 26.7 pg 27.0-32.0 [facility] MCHC (RBC) [Mass/Vol] 31.2 g/dL 32-36 [facility] Platelet mean volume (Bld) [Entitic vol] 10.2 fL 6.2-12.0 [facility] Platelets (Bld) [#/Vol] 269 10*3/uL 150-450 [facility] No Panel InformationOrdered By: Jose Raul Pulliam on 12-11-2023 Estimated GFR (MDRD) Amer 88 mL/min >60 [facility] Comment on above: GFR Calc Estimated GFR (MDRD) Non-Af Amer 73 mL/min >60 [facility] Comment on above: Non- GFR Calc RBC Auto (Bld) [#/Vol]Ordere d By: Jose Raul Pulliam on 12-11-2023 RBC (Bld) [#/Vol] 4.30 10*6/uL 4.2-5.4 [facility] Serum or plasma calcium milagros urement (mass/volume)Ordered By: Jose Raul Pulliam on 12-11-2023 Calcium [Mass/Vol] 8.9 mg/dL 8.5-10.1 [facility] Serum or plasma creatinine m easurement (mass/volume)Ordered By: Jose Raul Pulliam on 12-11-2023 Creatinine [Mass/Vol] 0.80 mg/dL 0.55-1.02 [facility] Comment on above: The validity of the calculated GFR & GFRAA in patients over 70 years has not been determined. Clinical correlation is essential. Serum or plasma urea nitroge n measurement (mass/volume)Ordered By: Jose Raul Pulliam on 12-11-2023 Urea nitrogen [Mass/Vol] 11 mg/dL 7-18 [facility] Thin prep Papanicolaou smear with manual screeningOrdered By: leandra Pulliam on 12-11-2023 Thin prep Papanicolaou smear with manual screening 4 5-15 [facility] Basophil percentageOrdered B y: Jose Raul Pulliam on 11-27-2023 Chloride [Moles/Vol] 111 mmol/L 98-107 [facility] Glucose [Mass/Vol] 92 mg/dL 74-106 [facility] Hemoglobin (Bld) [Mass/Vol] 11.8 g/dL 12.0-15.0 [facility] Potassium [Moles/Vol] 4.2 mmol/L 3.5-5.1 [facility] Sodium [Moles/Vol] 141 mmol/L 136-145 [facility] WBC (Bld) [#/Vol] 5.7 10*3/uL 4.4-11.0 [facility] Determination of erythrocyte mean corpuscular volume (MCV)Ordered By: Jose Raul Pulliam on 11-27-2023 MCV (RBC) [Entitic vol] 85.2 fL 81-99 [facility] Erythrocyte distribution wid th ratioOrdered By: Jose Raul Pulliam on 11-27-2023 Erythrocyte distribution width (RBC) [Ratio] 15.8 % 11.6-14.6 [facility] Erythrocyte distribution wid th standard deviationOrdered By: Jose Raul Pulliam on 11-27-2023 Erythrocyte distribution width (RBC) [Entitic vol] 49.2 fL 35.1-43.9 [facility] Hematocrit Auto (Bld) [Volum e fraction]Ordered By: Jose Raul Pulliam on 11-27-2023 Hematocrit (Bld) [Volume fraction] 37.3 % 37-47 [facility] Laboratory - Chemistry and C hemistry - challengeOrdered By: Jose Raul Pulliam on 11-27-2023 CO2 [Moles/Vol] 25.0 mmol/L 21.0-32.0 [facility] Urea nitrogen/Creatinine [Mass ratio] 15.4 mg/mg 10-20 [facility] Laboratory - Hematology and Cell countsOrdered By: Jose Raul Pulliam on 11-27-2023 MCH (RBC) [Entitic mass] 26.9 pg 27.0-32.0 [facility] MCHC (RBC) [Mass/Vol] 31.6 g/dL 32-36 [facility] Platelet mean volume (Bld) [Entitic vol] 9.9 fL 6.2-12.0 [facility] Platelets (Bld) [#/Vol] 287 10*3/uL 150-450 [facility] No Panel InformationOrdered By: Jose Raul Pulliam on 11-27-2023 Estimated GFR (MDRD) Amer 90 mL/min >60 [facility] Comment on above: GFR Calc Estimated GFR (MDRD) Non-Af Amer 75 mL/min >60 [facility] Comment on above: Non- GFR Calc RBC Auto (Bld) [#/Vol]Ordere d By: Jose Raul Pulliam on 11-27-2023 RBC (Bld) [#/Vol] 4.38 10*6/uL 4.2-5.4 [facility] Serum or plasma calcium milagros urement (mass/volume)Ordered By: Jose Raul Pulliam on 11-27-2023 Calcium [Mass/Vol] 8.8 mg/dL 8.5-10.1 [facility] Serum or plasma creatinine m easurement (mass/volume)Ordered By: Jose Raul Pulliam on 11-27-2023 Creatinine [Mass/Vol] 0.78 mg/dL 0.55-1.02 [facility] Comment on above: The validity of the calculated GFR & GFRAA in patients over 70 years has not been determined. Clinical correlation is essential. Serum or plasma urea nitroge n measurement (mass/volume)Ordered By: Jose Raul Pulliam on 11-27-2023 Urea nitrogen [Mass/Vol] 12 mg/dL 7-18 [facility] Thin prep Papanicolaou smear with manual screeningOrdered By: Jose Raul Pulliam on 11-27-2023 Thin prep Papanicolaou smear with manual screening 5 5-15 [facility] Basophil percentageOrdered B y: Jose Raul Pulliam on 11-13-2023 Chloride [Moles/Vol] 112 mmol/L 98-107 [facility] Glucose [Mass/Vol] 81 mg/dL 74-106 [facility] Hemoglobin (Bld) [Mass/Vol] 11.4 g/dL 12.0-15.0 [facility] Potassium [Moles/Vol] 3.9 mmol/L 3.5-5.1 [facility] Sodium [Moles/Vol] 141 mmol/L 136-145 [facility] WBC (Bld) [#/Vol] 6.6 10*3/uL 4.4-11.0 [facility] Determination of erythrocyte mean corpuscular volume (MCV)Ordered By: Jose Raul Pulliam on 11-13-2023 MCV (RBC) [Entitic vol] 86.3 fL 81-99 [facility] Erythrocyte distribution wid th ratioOrdered By: Jose Raul Pulliam on 11-13-2023 Erythrocyte distribution width (RBC) [Ratio] 15.8 % 11.6-14.6 [facility] Erythrocyte distribution wid th standard deviationOrdered By: Jose Raul Pulliam on 11-13-2023 Erythrocyte distribution width (RBC) [Entitic vol] 50.0 fL 35.1-43.9 [facility] Hematocrit Auto (Bld) [Volum e fraction]Ordered By: Jose Raul Pulliam on 11-13-2023 Hematocrit (Bld) [Volume fraction] 37.2 % 37-47 [facility] Laboratory - Chemistry and C hemistry - challengeOrdered By: Jose Raul Pulliam on 11-13-2023 CO2 [Moles/Vol] 25.0 mmol/L 21.0-32.0 [facility] Urea nitrogen/Creatinine [Mass ratio] 15.4 mg/mg 10-20 [facility] Laboratory - Hematology and Cell countsOrdered By: Jose Raul Pulliam on 11-13-2023 MCH (RBC) [Entitic mass] 26.5 pg 27.0-32.0 [facility] MCHC (RBC) [Mass/Vol] 30.6 g/dL 32-36 [facility] Platelet mean volume (Bld) [Entitic vol] 9.9 fL 6.2-12.0 [facility] Platelets (Bld) [#/Vol] 276 10*3/uL 150-450 [facility] No Panel InformationOrdered By: Jose Raul Pulliam on 11-13-2023 Estimated GFR (MDRD) Amer 90 mL/min >60 [facility] Comment on above: GFR Calc Estimated GFR (MDRD) Non-Af Amer 75 mL/min >60 [facility] Comment on above: Non- GFR Calc RBC Auto (Bld) [#/Vol]Ordere d By: Jose Raul Pulliam on 11-13-2023 RBC (Bld) [#/Vol] 4.31 10*6/uL 4.2-5.4 [facility] Serum or plasma calcium milagros urement (mass/volume)Ordered By: Jose Raul Pulliam on 11-13-2023 Calcium [Mass/Vol] 8.5 mg/dL 8.5-10.1 [facility] Serum or plasma creatinine m easurement (mass/volume)Ordered By: Jose Raul Pulliam on 11-13-2023 Creatinine [Mass/Vol] 0.78 mg/dL 0.55-1.02 [facility] Comment on above: The validity of the calculated GFR & GFRAA in patients over 70 years has not been determined. Clinical correlation is essential. Serum or plasma urea nitroge n measurement (mass/volume)Ordered By: Jose Raul Pulliam on 11-13-2023 Urea nitrogen [Mass/Vol] 12 mg/dL 7-18 [facility] Thin prep Papanicolaou smear with manual screeningOrdered By: Jose Raul Pulliam on 11-13-2023 Thin prep Papanicolaou smear with manual screening 4 5-15 [facility] Basophil percentageOrdered B y: Jose Raul Pulliam on 10-30-2023 Chloride [Moles/Vol] 114 mmol/L 98-107 [facility] Glucose [Mass/Vol] 107 mg/dL 74-106 [facility] Comment on above: Fasting Glucose resu lt from 100 to 125 mg/dL suggests IMPAIRED HOMEOSTASIS per A.D.A. criteria. Hemoglobin (Bld) [Mass/Vol] 11.9 g/dL 12.0-15.0 [facility] Potassium [Moles/Vol] 4.3 mmol/L 3.5-5.1 [facility] Comment on above: Moderate Hemolysis, Result may be falsely increased. Sodium [Moles/Vol] 142 mmol/L 136-145 [facility] WBC (Bld) [#/Vol] 6.0 10*3/uL 4.4-11.0 [facility] Determination of erythrocyte mean corpuscular volume (MCV)Ordered By: Jose Raul Pulliam on 10-30-2023 MCV (RBC) [Entitic vol] 85.7 fL 81-99 [facility] Erythrocyte distribution wid th ratioOrdered By: Jose Raul Pulliam on 10-30-2023 Erythrocyte distribution width (RBC) [Ratio] 15.9 % 11.6-14.6 [facility] Erythrocyte distribution wid th standard deviationOrdered By: Frankyfederalsburgjennifer Pulliam on 10-30-2023 Erythrocyte distribution width (RBC) [Entitic vol] 49.3 fL 35.1-43.9 [facility] Hematocrit Auto (Bld) [Volum e fraction]Ordered By: Jose Raul Pulliam on 10-30-2023 Hematocrit (Bld) [Volume fraction] 38.5 % 37-47 [facility] Laboratory - Chemistry and C hemistry - challengeOrdered By: Jose Raul Pulliam on 10-30-2023 CO2 [Moles/Vol] 24.0 mmol/L 21.0-32.0 [facility] Urea nitrogen/Creatinine [Mass ratio] 13.1 mg/mg 10-20 [facility] Laboratory - Hematology and Cell countsOrdered By: Jose Raul Pulliam on 10-30-2023 MCH (RBC) [Entitic mass] 26.5 pg 27.0-32.0 [facility] MCHC (RBC) [Mass/Vol] 30.9 g/dL 32-36 [facility] Platelet mean volume (Bld) [Entitic vol] 9.9 fL 6.2-12.0 [facility] Platelets (Bld) [#/Vol] 311 10*3/uL 150-450 [facility] No Panel InformationOrdered By: Jose Raul Pulliam on 10-30-2023 Estimated GFR (MDRD) Amer 75 mL/min >60 [facility] Comment on above: GFR Calc Estimated GFR (MDRD) Non-Af Amer 62 mL/min >60 [facility] Comment on above: Non- GFR Calc RBC Auto (Bld) [#/Vol]Ordere d By: Jose Raul Pulliam on 10-30-2023 RBC (Bld) [#/Vol] 4.49 10*6/uL 4.2-5.4 [facility] Serum or plasma calcium milagros urement (mass/volume)Ordered By: Jose Raul Pulliam on 10-30-2023 Calcium [Mass/Vol] 9.4 mg/dL 8.5-10.1 [facility] Serum or plasma creatinine m easurement (mass/volume)Ordered By: Jose Raul Pulliam on 10-30-2023 Creatinine [Mass/Vol] 0.91 mg/dL 0.55-1.02 [facility] Comment on above: The validity of the calculated GFR & GFRAA in patients over 70 years has not been determined. Clinical correlation is essential. Serum or plasma urea nitroge n measurement (mass/volume)Ordered By: Jose Raul Pulliam on 10-30-2023 Urea nitrogen [Mass/Vol] 12 mg/dL 7-18 [facility] Thin prep Papanicolaou smear with manual screeningOrdered By: Jose Raul Pulliam on 10-30-2023 Thin prep Papanicolaou smear with manual screening 4 5-15 [facility] Basophil percentageOrdered B y: Jose Raul Pulliam on 10-16-2023 Chloride [Moles/Vol] 113 mmol/L 98-107 [facility] Glucose [Mass/Vol] 89 mg/dL 74-106 [facility] Hemoglobin (Bld) [Mass/Vol] 11.4 g/dL 12.0-15.0 [facility] Potassium [Moles/Vol] 3.9 mmol/L 3.5-5.1 [facility] Sodium [Moles/Vol] 143 mmol/L 136-145 [facility] WBC (Bld) [#/Vol] 6.1 10*3/uL 4.4-11.0 [facility] Determination of erythrocyte mean corpuscular volume (MCV)Ordered By: Jose Raul Pulliam on 10-16-2023 MCV (RBC) [Entitic vol] 86.0 fL 81-99 [facility] Erythrocyte distribution wid th ratioOrdered By: Jose Raul Pulliam on 10-16-2023 Erythrocyte distribution width (RBC) [Ratio] 15.9 % 11.6-14.6 [facility] Erythrocyte distribution wid th standard deviationOrdered By: Jose Raul Pulliam on 10-16-2023 Erythrocyte distribution width (RBC) [Entitic vol] 50.1 fL 35.1-43.9 [facility] Hematocrit Auto (Bld) [Volum e fraction]Ordered By: Jose Raul Pulliam on 10-16-2023 Hematocrit (Bld) [Volume fraction] 36.9 % 37-47 [facility] Laboratory - Chemistry and C hemistry - challengeOrdered By: Jose Raul Pulliam on 10-16-2023 CO2 [Moles/Vol] 24.0 mmol/L 21.0-32.0 [facility] Urea nitrogen/Creatinine [Mass ratio] 16.5 mg/mg 10-20 [facility] Laboratory - Hematology and Cell countsOrdered By: Jose Raul Pulliam on 10-16-2023 MCH (RBC) [Entitic mass] 26.6 pg 27.0-32.0 [facility] MCHC (RBC) [Mass/Vol] 30.9 g/dL 32-36 [facility] Platelet mean volume (Bld) [Entitic vol] 9.7 fL 6.2-12.0 [facility] Platelets (Bld) [#/Vol] 289 10*3/uL 150-450 [facility] No Panel InformationOrdered By: Jose Raul Pulliam on 10-16-2023 Estimated GFR (MDRD) Amer 98 mL/min >60 [facility] Comment on above: GFR Calc Estimated GFR (MDRD) Non-Af Amer 81 mL/min >60 [facility] Comment on above: Non- GFR Calc RBC Auto (Bld) [#/Vol]Ordere d By: Jose Raul Pulliam on 10-16-2023 RBC (Bld) [#/Vol] 4.29 10*6/uL 4.2-5.4 [facility] Serum or plasma calcium milagros urement (mass/volume)Ordered By: Jose Raul Pulliam on 10-16-2023 Calcium [Mass/Vol] 9.0 mg/dL 8.5-10.1 [facility] Serum or plasma creatinine m easurement (mass/volume)Ordered By: Jose Raul Pulliam on 10-16-2023 Creatinine [Mass/Vol] 0.73 mg/dL 0.55-1.02 [facility] Comment on above: The validity of the calculated GFR & GFRAA in patients over 70 years has not been determined. Clinical correlation is essential. Serum or plasma urea nitroge n measurement (mass/volume)Ordered By: Jose Raul Pulliam on 10-16-2023 Urea nitrogen [Mass/Vol] 12 mg/dL 7-18 [facility] Thin prep Papanicolaou smear with manual screeningOrdered By: Jose Raul Pulliam on 10-16-2023 Thin prep Papanicolaou smear with manual screening 6 5-15 [facility] Basophil percentageOrdered B y: Jose Raul Pulliam on 10-02-2023 Chloride [Moles/Vol] 110 mmol/L 98-107 [facility] Glucose [Mass/Vol] 88 mg/dL 74-106 [facility] Hemoglobin (Bld) [Mass/Vol] 12.3 g/dL 12.0-15.0 [facility] Potassium [Moles/Vol] 4.2 mmol/L 3.5-5.1 [facility] Sodium [Moles/Vol] 139 mmol/L 136-145 [facility] WBC (Bld) [#/Vol] 7.6 10*3/uL 4.4-11.0 [facility] Determination of erythrocyte mean corpuscular volume (MCV)Ordered By: Jose Raul Pulliam on 10-02-2023 MCV (RBC) [Entitic vol] 86.3 fL 81-99 [facility] Erythrocyte distribution wid th ratioOrdered By: Jose Raul Pulliam on 10-02-2023 Erythrocyte distribution width (RBC) [Ratio] 15.9 % 11.6-14.6 [facility] Erythrocyte distribution wid th standard deviationOrdered By: Jose Raul Pulliam on 10-02-2023 Erythrocyte distribution width (RBC) [Entitic vol] 50.3 fL 35.1-43.9 [facility] Hematocrit Auto (Bld) [Volum e fraction]Ordered By: Jose Raul Pulliam on 10-02-2023 Hematocrit (Bld) [Volume fraction] 40.2 % 37-47 [facility] Laboratory - Chemistry and C hemistry - challengeOrdered By: Jose Raul Pulliam on 10-02-2023 CO2 [Moles/Vol] 24.0 mmol/L 21.0-32.0 [facility] Urea nitrogen/Creatinine [Mass ratio] 15.3 mg/mg 10-20 [facility] [facility] Laboratory - Hematology and Cell countsOrdered By: Jose Raul Pulliam on 10-02-2023 MCH (RBC) [Entitic mass] 26.4 pg 27.0-32.0 [facility] MCHC (RBC) [Mass/Vol] 30.6 g/dL 32-36 [facility] Platelets (Bld) [#/Vol] 311 10*3/uL 150-450 [facility] No Panel InformationOrdered By: Jose Raul Pulliam on 10-02-2023 Estimated GFR (MDRD) Amer 90 mL/min >60 [facility] Comment on above: GFR Calc Estimated GFR (MDRD) Non-Af Amer 74 mL/min >60 [facility] Comment on above: Non- GFR Calc Platelet mean volume Inocencio-Ec ker (Bld) [Entitic vol]Ordered By: Jose Raul Pulliam on 10-02-2023 Platelet mean volume (Bld) [Entitic vol] 9.9 fL 6.2-12.0 [facility] RBC Auto (Bld) [#/Vol]Ordere d By: Jose Raul Pulliam on 10-02-2023 RBC (Bld) [#/Vol] 4.66 10*6/uL 4.2-5.4 [facility] Serum or plasma calcium milagros urement (mass/volume)Ordered By: Jose Raul Pulliam on 10-02-2023 Calcium [Mass/Vol] 9.1 mg/dL 8.5-10.1 [facility] Serum or plasma creatinine m easurement (mass/volume)Ordered By: Jose Raul Pulliam on 10-02-2023 Creatinine [Mass/Vol] 0.78 mg/dL 0.55-1.02 [facility] Comment on above: The validity of the calculated GFR & GFRAA in patients over 70 years has not been determined. Clinical correlation is essential. Serum or plasma urea nitroge n measurement (mass/volume)Ordered By: Jose Raul Pulliam on 10-02-2023 Urea nitrogen [Mass/Vol] 12 mg/dL 7-18 [facility] Thin prep Papanicolaou smear with manual screeningOrdered By: Jose Raul Pulliam on 10-02-2023 Thin prep Papanicolaou smear with manual screening 5 5-15 [facility] Basophil percentageOrdered B y: Jose Raul Pulliam on 09-18-2023 Chloride [Moles/Vol] 111 mmol/L 98-107 [facility] Glucose [Mass/Vol] 90 mg/dL 74-106 [facility] Potassium [Moles/Vol] 4.2 mmol/L 3.5-5.1 [facility] Sodium [Moles/Vol] 141 mmol/L 136-145 [facility] WBC (Bld) [#/Vol] 7.5 10*3/uL 4.4-11.0 [facility] Blood erythrocytes count (nu mber/volume)Ordered By: Jose Raul Pulliam on 09-18-2023 RBC (Bld) [#/Vol] 4.37 10*6/uL 4.2-5.4 [facility] Blood hemoglobin measurement (mass/volume)Ordered By: Jose Raul Pulliam on 09-18-2023 Hemoglobin (Bld) [Mass/Vol] 11.4 g/dL 12.0-15.0 [facility] Blood platelet mean volumeOr dered By: Jose Raul Pulliam on 09-18-2023 Platelet mean volume (Bld) [Entitic vol] 9.9 fL 6.2-12.0 [facility] Determination of erythrocyte mean corpuscular volume (MCV)Ordered By: Jose Raul Pulliam on 09-18-2023 MCV (RBC) [Entitic vol] 85.8 fL 81-99 [facility] Hematocrit Auto (Bld) [Volum e fraction]Ordered By: Jose Raul Pulliam on 09-18-2023 Hematocrit (Bld) [Volume fraction] 37.5 % 37-47 [facility] Laboratory - Chemistry and C hemistry - challengeOrdered By: Jose Raul Pulliam on 09-18-2023 CO2 [Moles/Vol] 26.0 mmol/L 21.0-32.0 [facility] Urea nitrogen/Creatinine [Mass ratio] 16.6 mg/mg 10-20 [facility] Laboratory - Hematology and Cell countsOrdered By: Jose Raul Pulliam on 09-18-2023 Erythrocyte distribution width (RBC) [Entitic vol] 49.8 fL 35.1-43.9 [facility] Erythrocyte distribution width (RBC) [Ratio] 15.8 % 11.6-14.6 [facility] MCH (RBC) [Entitic mass] 26.1 pg 27.0-32.0 [facility] Auto (RBC) [Mass/Vol]Or dered By: Jose Raul Pulliam on 09-18-2023 MCHC (RBC) [Mass/Vol] 30.4 g/dL 32-36 [facility] No Panel InformationOrdered By: Jose Raul Pulliam on 09-18-2023 Estimated GFR (MDRD) Amer 90 mL/min >60 [facility] Comment on above: GFR Calc Estimated GFR (MDRD) Non-Af Amer 74 mL/min >60 [facility] Comment on above: Non- GFR Calc Platelets bldOrdered By: Sam Pulliam on 09-18-2023 Platelets (Bld) [#/Vol] 276 10*3/uL 150-450 [facility] Serum or plasma calcium milagros urement (mass/volume)Ordered By: Jose Raul Pulliam on 09-18-2023 Calcium [Mass/Vol] 8.7 mg/dL 8.5-10.1 [facility] Serum or plasma creatinine m easurement (mass/volume)Ordered By: Jose Raul Pulliam on 09-18-2023 Creatinine [Mass/Vol] 0.78 mg/dL 0.55-1.02 [facility] Comment on above: The validity of the calculated GFR & GFRAA in patients over 70 years has not been determined. Clinical correlation is essential. Serum or plasma urea nitroge n measurement (mass/volume)Ordered By: Jose Raul Pulliam on 09-18-2023 Urea nitrogen [Mass/Vol] 13 mg/dL 7-18 [facility] Thin prep Papanicolaou smear with manual screeningOrdered By: Jose Raul Pulliam on 09-18-2023 Thin prep Papanicolaou smear with manual screening 4 5-15 [facility] Basophil percentageOrdered B y: Jose Raul Pulliam on 09-04-2023 Chloride [Moles/Vol] 112 mmol/L 98-107 [facility] Glucose [Mass/Vol] 91 mg/dL 74-106 [facility] Potassium [Moles/Vol] 3.9 mmol/L 3.5-5.1 [facility] Sodium [Moles/Vol] 141 mmol/L 136-145 [facility] WBC (Bld) [#/Vol] 6.3 10*3/uL 4.4-11.0 [facility] Blood erythrocytes count (nu mber/volume)Ordered By: Jose Raul Pulliam on 09-04-2023 RBC (Bld) [#/Vol] 4.18 10*6/uL 4.2-5.4 [facility] Blood hemoglobin measurement (mass/volume)Ordered By: Jose Raul Pulliam on 09-04-2023 Hemoglobin (Bld) [Mass/Vol] 11.1 g/dL 12.0-15.0 [facility] Blood platelet mean volumeOr dered By: Jose Raul Pulliam on 09-04-2023 Platelet mean volume (Bld) [Entitic vol] 10.1 fL 6.2-12.0 [facility] Determination of erythrocyte mean corpuscular volume (MCV)Ordered By: Jose Raul Pulliam on 09-04-2023 MCV (RBC) [Entitic vol] 88.3 fL 81-99 [facility] Hematocrit Auto (Bld) [Volum e fraction]Ordered By: Jose Raul Pulliam on 09-04-2023 Hematocrit (Bld) [Volume fraction] 36.9 % 37-47 [facility] Laboratory - Chemistry and C hemistry - challengeOrdered By: Jose Raul Pulliam on 09-04-2023 CO2 [Moles/Vol] 26.0 mmol/L 21.0-32.0 [facility] Urea nitrogen/Creatinine [Mass ratio] 18.6 mg/mg 10-20 [facility] Laboratory - Hematology and Cell countsOrdered By: Jose Raul Pulliam on 09-04-2023 Erythrocyte distribution width (RBC) [Entitic vol] 52.0 fL 35.1-43.9 [facility] Erythrocyte distribution width (RBC) [Ratio] 16.0 % 11.6-14.6 [facility] MCH (RBC) [Entitic mass] 26.6 pg 27.0-32.0 [facility] MCHC Auto (RBC) [Mass/Vol]Or dered By: Jose Raul Pulliam on 09-04-2023 MCHC (RBC) [Mass/Vol] 30.1 g/dL 32-36 [facility] No Panel InformationOrdered By: Jose Raul Pulliam on 09-04-2023 Estimated GFR (MDRD) Amer 87 mL/min >60 [facility] Comment on above: GFR Calc Estimated GFR (MDRD) Non-Af Amer 72 mL/min >60 [facility] Comment on above: Non- GFR Calc Platelets bldOrdered By: Sam Pulliam on 09-04-2023 Platelets (Bld) [#/Vol] 255 10*3/uL 150-450 [facility] Serum or plasma calcium milagros urement (mass/volume)Ordered By: Jose Raul Pulliam on 09-04-2023 Calcium [Mass/Vol] 8.7 mg/dL 8.5-10.1 [facility] Serum or plasma creatinine m easurement (mass/volume)Ordered By: Jose Raul Pulliam on 09-04-2023 Creatinine [Mass/Vol] 0.81 mg/dL 0.55-1.02 [facility] Comment on above: The validity of the calculated GFR & GFRAA in patients over 70 years has not been determined. Clinical correlation is essential. Serum or plasma urea nitroge n measurement (mass/volume)Ordered By: Jose Raul Pulliam on 09-04-2023 Urea nitrogen [Mass/Vol] 15 mg/dL 7-18 [facility] Thin prep Papanicolaou smear with manual screeningOrdered By: Jose Raul Pulliam on 09-04-2023 Thin prep Papanicolaou smear with manual screening 3 5-15 [facility] Basophil percentageOrdered B y: Jose Raul Pulliam on 08-21-2023 Chloride [Moles/Vol] 112 mmol/L 98-107 [facility] Glucose [Mass/Vol] 95 mg/dL 74-106 [facility] Potassium [Moles/Vol] 4.4 mmol/L 3.5-5.1 [facility] Sodium [Moles/Vol] 142 mmol/L 136-145 [facility] WBC (Bld) [#/Vol] 6.5 10*3/uL 4.4-11.0 [facility] Blood erythrocytes count (nu mber/volume)Ordered By: Jose Raul Pulliam on 08-21-2023 RBC (Bld) [#/Vol] 4.39 10*6/uL 4.2-5.4 [facility] Blood hemoglobin measurement (mass/volume)Ordered By: Jose Raul Pulliam on 08-21-2023 Hemoglobin (Bld) [Mass/Vol] 11.7 g/dL 12.0-15.0 [facility] Blood platelet mean volumeOr dered By: Jose Raul Pulliam on 08-21-2023 Platelet mean volume (Bld) [Entitic vol] 9.7 fL 6.2-12.0 [facility] Determination of erythrocyte mean corpuscular volume (MCV)Ordered By: Jose Raul Pulliam on 08-21-2023 MCV (RBC) [Entitic vol] 86.6 fL 81-99 [facility] Hematocrit Auto (Bld) [Volum e fraction]Ordered By: Jose Raul Pulliam on 08-21-2023 Hematocrit (Bld) [Volume fraction] 38.0 % 37-47 [facility] Laboratory - Chemistry and C hemistry - challengeOrdered By: Jose Raul Pulliam on 08-21-2023 CO2 [Moles/Vol] 26.0 mmol/L 21.0-32.0 [facility] Urea nitrogen/Creatinine [Mass ratio] 18.7 mg/mg 10-20 [facility] Laboratory - Hematology and Cell countsOrdered By: Jose Raul Pulliam on 08-21-2023 Erythrocyte distribution width (RBC) [Entitic vol] 50.3 fL 35.1-43.9 [facility] Erythrocyte distribution width (RBC) [Ratio] 15.9 % 11.6-14.6 [facility] MCH (RBC) [Entitic mass] 26.7 pg 27.0-32.0 [facility] MCHC Auto (RBC) [Mass/Vol]Or dered By: Jose Raul Pulliam on 08-21-2023 MCHC (RBC) [Mass/Vol] 30.8 g/dL 32-36 [facility] No Panel InformationOrdered By: Jose Raul Pulliam on 08-21-2023 Estimated GFR (MDRD) Amer 87 mL/min >60 [facility] Comment on above: GFR Calc Estimated GFR (MDRD) Non-Af Amer 72 mL/min >60 [facility] Comment on above: Non- GFR Calc Platelets bldOrdered By: Sam giovanajennifer Pulliam on 08-21-2023 Platelets (Bld) [#/Vol] 290 10*3/uL 150-450 [facility] Serum or plasma calcium milagros urement (mass/volume)Ordered By: Jose Raul Pulliam on 08-21-2023 Calcium [Mass/Vol] 8.9 mg/dL 8.5-10.1 [facility] Serum or plasma creatinine m easurement (mass/volume)Ordered By: Jose Raul Pulliam on 08-21-2023 Creatinine [Mass/Vol] 0.80 mg/dL 0.55-1.02 [facility] Comment on above: The validity of the calculated GFR & GFRAA in patients over 70 years has not been determined. Clinical correlation is essential. Serum or plasma urea nitroge n measurement (mass/volume)Ordered By: Jose Raul Pulliam on 08-21-2023 Urea nitrogen [Mass/Vol] 15 mg/dL 7-18 [facility] Thin prep Papanicolaou smear with manual screeningOrdered By: Jose Raul Pulliam on 08-21-2023 Thin prep Papanicolaou smear with manual screening 4 5-15 [facility] Basophil percentageOrdered B y: Jose Raul Pulliam on 08-07-2023 Chloride [Moles/Vol] 112 mmol/L 98-107 [facility] Glucose [Mass/Vol] 90 mg/dL 74-106 [facility] Potassium [Moles/Vol] 3.8 mmol/L 3.5-5.1 [facility] Sodium [Moles/Vol] 142 mmol/L 136-145 [facility] WBC (Bld) [#/Vol] 6.4 10*3/uL 4.4-11.0 [facility] Blood erythrocytes count (nu mber/volume)Ordered By: Jose Raul Pulliam on 08-07-2023 RBC (Bld) [#/Vol] 4.26 10*6/uL 4.2-5.4 [facility] Blood hemoglobin measurement (mass/volume)Ordered By: Jose Raul Pulliam on 08-07-2023 Hemoglobin (Bld) [Mass/Vol] 11.2 g/dL 12.0-15.0 [facility] Blood platelet mean volumeOr dered By: Jose Raul Pulliam on 08-07-2023 Platelet mean volume (Bld) [Entitic vol] 9.7 fL 6.2-12.0 [facility] Determination of erythrocyte mean corpuscular volume (MCV)Ordered By: Jose Raul Pulliam on 08-07-2023 MCV (RBC) [Entitic vol] 87.8 fL 81-99 [facility] Hematocrit Auto (Bld) [Volum e fraction]Ordered By: Jose Raul Pulliam on 08-07-2023 Hematocrit (Bld) [Volume fraction] 37.4 % 37-47 [facility] Laboratory - Chemistry and C hemistry - challengeOrdered By: Jose Raul Pulliam on 08-07-2023 CO2 [Moles/Vol] 26.0 mmol/L 21.0-32.0 [facility] Urea nitrogen/Creatinine [Mass ratio] 21.0 mg/mg 10-20 [facility] Laboratory - Hematology and Cell countsOrdered By: Frankyfederalsburgjennifer Pulliam on 08-07-2023 Erythrocyte distribution width (RBC) [Entitic vol] 50.5 fL 35.1-43.9 [facility] Erythrocyte distribution width (RBC) [Ratio] 15.8 % 11.6-14.6 [facility] MCH (RBC) [Entitic mass] 26.3 pg 27.0-32.0 [facility] MCHC Auto (RBC) [Mass/Vol]Or dered By: Jose Raul Pulliam on 08-07-2023 MCHC (RBC) [Mass/Vol] 29.9 g/dL 32-36 [facility] No Panel InformationOrdered By: Jose Raul Pulliam on 08-07-2023 Estimated GFR (MDRD) Amer 87 mL/min >60 [facility] Comment on above: GFR Calc Estimated GFR (MDRD) Non-Af Amer 72 mL/min >60 [facility] Comment on above: Non- GFR Calc Platelets bldOrdered By: Sam Pulliam on 08-07-2023 Platelets (Bld) [#/Vol] 279 10*3/uL 150-450 [facility] Serum or plasma calcium milagros urement (mass/volume)Ordered By: Jose Raul Pulliam on 08-07-2023 Calcium [Mass/Vol] 8.6 mg/dL 8.5-10.1 [facility] Serum or plasma creatinine m easurement (mass/volume)Ordered By: Jose Raul Pulliam on 08-07-2023 Creatinine [Mass/Vol] 0.81 mg/dL 0.55-1.02 [facility] Comment on above: The validity of the calculated GFR & GFRAA in patients over 70 years has not been determined. Clinical correlation is essential. Serum or plasma urea nitroge n measurement (mass/volume)Ordered By: Jose Raul Pulliam on 08-07-2023 Urea nitrogen [Mass/Vol] 17 mg/dL 7-18 [facility] Thin prep Papanicolaou smear with manual screeningOrdered By: Jose Raul Pulliam on 08-07-2023 Thin prep Papanicolaou smear with manual screening 4 5-15 [facility] Basophil percentageOrdered B y: Jose Raul Pulliam on 07-23-2023 Chloride [Moles/Vol] 111 mmol/L 98-107 [facility] Glucose [Mass/Vol] 80 mg/dL 74-106 [facility] Potassium [Moles/Vol] 3.8 mmol/L 3.5-5.1 [facility] Sodium [Moles/Vol] 141 mmol/L 136-145 [facility] WBC (Bld) [#/Vol] 5.8 10*3/uL 4.4-11.0 [facility] Blood erythrocytes count (nu mber/volume)Ordered By: Jose Raul Pulliam on 07-23-2023 RBC (Bld) [#/Vol] 4.05 10*6/uL 4.2-5.4 [facility] Blood hemoglobin measurement (mass/volume)Ordered By: Jose Raul Pulliam on 07-23-2023 Hemoglobin (Bld) [Mass/Vol] 10.9 g/dL 12.0-15.0 [facility] Blood platelet mean volumeOr dered By: Jose Raul Pulliam on 07-23-2023 Platelet mean volume (Bld) [Entitic vol] 9.8 fL 6.2-12.0 [facility] Determination of erythrocyte mean corpuscular volume (MCV)Ordered By: Jose Raul Pulliam on 07-23-2023 MCV (RBC) [Entitic vol] 88.1 fL 81-99 [facility] Hematocrit Auto (Bld) [Volum e fraction]Ordered By: Jose Raul Pulliam on 07-23-2023 Hematocrit (Bld) [Volume fraction] 35.7 % 37-47 [facility] Laboratory - Chemistry and C hemistry - challengeOrdered By: Jose Raul Pulliam on 07-23-2023 CO2 [Moles/Vol] 24.0 mmol/L 21.0-32.0 [facility] Urea nitrogen/Creatinine [Mass ratio] 19.1 mg/mg 10-20 [facility] Laboratory - Hematology and Cell countsOrdered By: Jose Raul Pulliam on 07-23-2023 Erythrocyte distribution width (RBC) [Entitic vol] 51.1 fL 35.1-43.9 [facility] Erythrocyte distribution width (RBC) [Ratio] 15.8 % 11.6-14.6 [facility] MCH (RBC) [Entitic mass] 26.9 pg 27.0-32.0 [facility] MCHC Auto (RBC) [Mass/Vol]Or dered By: Jose Raul Pulliam on 07-23-2023 MCHC (RBC) [Mass/Vol] 30.5 g/dL 32-36 [facility] No Panel InformationOrdered By: Jose Raul Pulliam on 07-23-2023 Estimated GFR (MDRD) Amer 97 mL/min >60 [facility] Comment on above: GFR Calc Estimated GFR (MDRD) Non-Af Amer 80 mL/min >60 [facility] Comment on above: Non- GFR Calc Platelets bldOrdered By: Sam Hammere on 07-23-2023 Platelets (Bld) [#/Vol] 240 10*3/uL 150-450 [facility] Serum or plasma calcium milagros urement (mass/volume)Ordered By: Jose Raul Pulliam on 07-23-2023 Calcium [Mass/Vol] 8.3 mg/dL 8.5-10.1 [facility] Serum or plasma creatinine m easurement (mass/volume)Ordered By: Jose Raul Pulliam on 07-23-2023 Creatinine [Mass/Vol] 0.73 mg/dL 0.55-1.02 [facility] Comment on above: The validity of the calculated GFR & GFRAA in patients over 70 years has not been determined. Clinical correlation is essential. Serum or plasma urea nitroge n measurement (mass/volume)Ordered By: Jose Raul Pulliam on 07-23-2023 Urea nitrogen [Mass/Vol] 14 mg/dL 7-18 [facility] Thin prep Papanicolaou smear with manual screeningOrdered By: Jose Raul Pulliam on 07-23-2023 Thin prep Papanicolaou smear with manual screening 6 5-15 [facility] Basophil percentageOrdered B y: Jose Raul Pulliam on 07-09-2023 Chloride [Moles/Vol] 111 mmol/L 98-107 [facility] Glucose [Mass/Vol] 93 mg/dL 74-106 [facility] Potassium [Moles/Vol] 4.1 mmol/L 3.5-5.1 [facility] Sodium [Moles/Vol] 142 mmol/L 136-145 [facility] WBC (Bld) [#/Vol] 5.5 10*3/uL 4.4-11.0 [facility] Blood erythrocytes count (nu mber/volume)Ordered By: Jose Raul Pulliam on 07-09-2023 RBC (Bld) [#/Vol] 4.31 10*6/uL 4.2-5.4 [facility] Blood hemoglobin measurement (mass/volume)Ordered By: Jose Raul Pulliam on 07-09-2023 Hemoglobin (Bld) [Mass/Vol] 11.5 g/dL 12.0-15.0 [facility] Blood platelet mean volumeOr dered By: Jose Raul Pulliam on 07-09-2023 Platelet mean volume (Bld) [Entitic vol] 9.3 fL 6.2-12.0 [facility] Determination of erythrocyte mean corpuscular volume (MCV)Ordered By: Jose Raul Pulliam on 07-09-2023 MCV (RBC) [Entitic vol] 87.0 fL 81-99 [facility] Hematocrit Auto (Bld) [Volum e fraction]Ordered By: Jose Raul Pulliam on 07-09-2023 Hematocrit (Bld) [Volume fraction] 37.5 % 37-47 [facility] Laboratory - Chemistry and C hemistry - challengeOrdered By: Jose Raul Pulliam on 07-09-2023 CO2 [Moles/Vol] 25.0 mmol/L 21.0-32.0 [facility] Urea nitrogen/Creatinine [Mass ratio] 21.9 mg/mg 10-20 [facility] Laboratory - Hematology and Cell countsOrdered By: Jose Raul Pulliam on 07-09-2023 Erythrocyte distribution width (RBC) [Entitic vol] 50.3 fL 35.1-43.9 [facility] Erythrocyte distribution width (RBC) [Ratio] 15.7 % 11.6-14.6 [facility] MCH (RBC) [Entitic mass] 26.7 pg 27.0-32.0 [facility] MCHC Auto (RBC) [Mass/Vol]Or dered By: Jose Raul Pulliam on 07-09-2023 MCHC (RBC) [Mass/Vol] 30.7 g/dL 32-36 [facility] No Panel InformationOrdered By: Jose Raul Pulliam on 07-09-2023 Estimated GFR (MDRD) Amer 85 mL/min >60 [facility] Comment on above: GFR Calc Estimated GFR (MDRD) Non-Af Amer 70 mL/min >60 [facility] Comment on above: Non- GFR Calc Platelets bldOrdered By: Sam Pulliam on 07-09-2023 Platelets (Bld) [#/Vol] 313 10*3/uL 150-450 [facility] Serum or plasma calcium milagros urement (mass/volume)Ordered By: Jose Raul Pulliam on 07-09-2023 Calcium [Mass/Vol] 8.7 mg/dL 8.5-10.1 [facility] Serum or plasma creatinine m easurement (mass/volume)Ordered By: diandrafederals[place]jennifer Pulliam on 07-09-2023 Creatinine [Mass/Vol] 0.82 mg/dL 0.55-1.02 [facility] Comment on above: The validity of the calculated GFR & GFRAA in patients over 70 years has not been determined. Clinical correlation is essential. Serum or plasma urea nitroge n measurement (mass/volume)Ordered By: [facility] on 07-09-2023 Urea nitrogen [Mass/Vol] 18 mg/dL 7-18 [facility] Thin prep Papanicolaou smear with manual screeningOrdered By: [facility] Carltonjessenia on 07-09-2023 Thin prep Papanicolaou smear with manual screening 6 5-15 [facility] Absolute lymphocyte countOrd ered By: leandra Pulliam on 06-25-2023 Lymphocytes Auto (Unsp spec) [#/Vol] 1.61 10*3/uL 0.83-4.51 [facility] Basophil percentageOrdered B y: Josejennifer Pulliam on 06-25-2023 Basophils/100 WBC (Bld) 0.4 % 0-1 [facility] Chloride [Moles/Vol] 111 mmol/L 98-107 [facility] Eosinophils/100 WBC (Bld) 2.8 % 0-5 [facility] Glucose [Mass/Vol] 102 mg/dL 74-106 [facility] Comment on above: Fasting Glucose resu lt from 100 to 125 mg/dL suggests IMPAIRED HOMEOSTASIS per A.D.A. criteria. Neutrophils (Bld) [#/Vol] 4.6 10*3/uL 2.0-7.7 [facility] Neutrophils/100 WBC (Bld) 64.1 % 47-70 [facility] Potassium [Moles/Vol] 4.0 mmol/L 3.5-5.1 [facility] Sodium [Moles/Vol] 141 mmol/L 136-145 [facility] WBC (Bld) [#/Vol] 7.2 10*3/uL 4.4-11.0 [facility] Blood erythrocytes count (nu mber/volume)Ordered By: Jose Raul Pulliam on 06-25-2023 RBC (Bld) [#/Vol] 4.23 10*6/uL 4.2-5.4 [facility] Blood hemoglobin measurement (mass/volume)Ordered By: Jose Raul Pulliam on 06-25-2023 Hemoglobin (Bld) [Mass/Vol] 11.4 g/dL 12.0-15.0 [facility] Blood lymphocytes/100 leukoc ytesOrdered By: Frankyfederalsburgjennifer Pulliam on 06-25-2023 Lymphocytes/100 WBC (Bld) 22.4 % 19-41 [facility] Blood monocytes/100 leukocyt esOrdered By: Frankyfederalsburgjennifer Pulliam on 06-25-2023 Monocytes/100 WBC (Bld) 9.7 % 0-10 [facility] Blood platelet mean volumeOr dered By: Jose Raul Pulliam on 06-25-2023 Platelet mean volume (Bld) [Entitic vol] 9.7 fL 6.2-12.0 [facility] Determination of erythrocyte mean corpuscular volume (MCV)Ordered By: Jose Raul Pulliam on 06-25-2023 MCV (RBC) [Entitic vol] 87.9 fL 81-99 [facility] Hematocrit Auto (Bld) [Volum e fraction]Ordered By: Jose Raul Pulliam on 06-25-2023 Hematocrit (Bld) [Volume fraction] 37.2 % 37-47 [facility] Laboratory - Chemistry and C hemistry - challengeOrdered By: Jose Raul Pulliam on 06-25-2023 CO2 [Moles/Vol] 24.0 mmol/L 21.0-32.0 [facility] Urea nitrogen/Creatinine [Mass ratio] 19.6 mg/mg 10-20 [facility] Laboratory - Hematology and Cell countsOrdered By: Jose Raul Pulliam on 06-25-2023 Erythrocyte distribution width (RBC) [Entitic vol] 51.2 fL 35.1-43.9 [facility] Erythrocyte distribution width (RBC) [Ratio] 15.7 % 11.6-14.6 [facility] Immature granulocytes/100 WBC (Bld) 0.600 % 0.0-0.9 [facility] Comment on above: IG% - Immature Granu locytes (promyelocytes, myelocytes and metamyelocytes) > 1% indicates that a LEFT SHIFT is Present. MCH (RBC) [Entitic mass] 27.0 pg 27.0-32.0 [facility] Nucleated RBC/100 WBC (Bld) [Ratio] 0 % 0-5 [facility] MCHC Auto (RBC) [Mass/Vol]Or dered By: Jose Raul Pulliam on 06-25-2023 MCHC (RBC) [Mass/Vol] 30.6 g/dL 32-36 [facility] No Panel InformationOrdered By: Jose Raul Pulliam on 06-25-2023 Estimated GFR (MDRD) Amer 93 mL/min >60 [facility] Comment on above: GFR Calc Estimated GFR (MDRD) Non-Af Amer 76 mL/min >60 [facility] Comment on above: Non- GFR Calc Platelets bldOrdered By: Sam Pulliam on 06-25-2023 Platelets (Bld) [#/Vol] 269 10*3/uL 150-450 [facility] Serum or plasma calcium milagros urement (mass/volume)Ordered By: Jose Raul Pulliam on 06-25-2023 Calcium [Mass/Vol] 8.4 mg/dL 8.5-10.1 [facility] Serum or plasma creatinine m easurement (mass/volume)Ordered By: Jose Raul Pulliam on 06-25-2023 Creatinine [Mass/Vol] 0.76 mg/dL 0.55-1.02 [facility] Comment on above: The validity of the calculated GFR & GFRAA in patients over 70 years has not been determined. Clinical correlation is essential. Serum or plasma urea nitroge n measurement (mass/volume)Ordered By: Jose Raul Pulliam on 06-25-2023 Urea nitrogen [Mass/Vol] 15 mg/dL 7-18 [facility] Thin prep Papanicolaou smear with manual screeningOrdered By: Jose Raul Pulliam on 06-25-2023 Thin prep Papanicolaou smear with manual screening 6 5-15 [facility] Basophil percentageOrdered B y: Jose Raul Pulliam on 06-11-2023 Chloride [Moles/Vol] 109 mmol/L 98-107 [facility] Glucose [Mass/Vol] 85 mg/dL 74-106 [facility] Potassium [Moles/Vol] 4.1 mmol/L 3.5-5.1 [facility] Sodium [Moles/Vol] 140 mmol/L 136-145 [facility] WBC (Bld) [#/Vol] 6.7 10*3/uL 4.4-11.0 [facility] Blood erythrocytes count (nu mber/volume)Ordered By: Jose Raul Pulliam on 06-11-2023 RBC (Bld) [#/Vol] 4.09 10*6/uL 4.2-5.4 [facility] Blood hemoglobin measurement (mass/volume)Ordered By: Jose Raul Pulliam on 06-11-2023 Hemoglobin (Bld) [Mass/Vol] 11.1 g/dL 12.0-15.0 [facility] Blood platelet mean volumeOr dered By: Jose Raul Pulliam on 06-11-2023 Platelet mean volume (Bld) [Entitic vol] 10.0 fL 6.2-12.0 [facility] Determination of erythrocyte mean corpuscular volume (MCV)Ordered By: Jose Raul Pulliam on 06-11-2023 MCV (RBC) [Entitic vol] 88.3 fL 81-99 [facility] Hematocrit Auto (Bld) [Volum e fraction]Ordered By: Jose Raul Pulliam on 06-11-2023 Hematocrit (Bld) [Volume fraction] 36.1 % 37-47 [facility] Laboratory - Chemistry and C hemistry - challengeOrdered By: Jose Raul Pulliam on 06-11-2023 CO2 [Moles/Vol] 25.0 mmol/L 21.0-32.0 [facility] Urea nitrogen/Creatinine [Mass ratio] 17.9 mg/mg 10-20 [facility] Laboratory - Hematology and Cell countsOrdered By: Jose Raul Pulliam on 06-11-2023 Erythrocyte distribution width (RBC) [Entitic vol] 50.2 fL 35.1-43.9 [facility] Erythrocyte distribution width (RBC) [Ratio] 15.5 % 11.6-14.6 [facility] MCH (RBC) [Entitic mass] 27.1 pg 27.0-32.0 [facility] MCHC Auto (RBC) [Mass/Vol]Or dered By: Jose Raul Pulliam on 06-11-2023 MCHC (RBC) [Mass/Vol] 30.7 g/dL 32-36 [facility] No Panel InformationOrdered By: Jose Raul Pulliam on 06-11-2023 Estimated GFR (MDRD) Amer 98 mL/min >60 [facility] Comment on above: GFR Calc Estimated GFR (MDRD) Non-Af Amer 81 mL/min >60 [facility] Comment on above: Non- GFR Calc Platelets bldOrdered By: Sam Pulliam on 06-11-2023 Platelets (Bld) [#/Vol] 266 10*3/uL 150-450 [facility] Serum or plasma calcium milagros urement (mass/volume)Ordered By: Jose Raul Pulliam on 06-11-2023 Calcium [Mass/Vol] 8.4 mg/dL 8.5-10.1 [facility] Serum or plasma creatinine m easurement (mass/volume)Ordered By: Jose Raul Pulliam on 06-11-2023 Creatinine [Mass/Vol] 0.72 mg/dL 0.55-1.02 [facility] Comment on above: The validity of the calculated GFR & GFRAA in patients over 70 years has not been determined. Clinical correlation is essential. Serum or plasma urea nitroge n measurement (mass/volume)Ordered By: Jose Raul Pulliam on 06-11-2023 Urea nitrogen [Mass/Vol] 13 mg/dL 7-18 [facility] Thin prep Papanicolaou smear with manual screeningOrdered By: Jose Raul Pulliam on 06-11-2023 Thin prep Papanicolaou smear with manual screening 6 5-15 [facility] Basophil percentageOrdered B y: Jose Raul Pulliam on 05-28-2023 Chloride [Moles/Vol] 111 mmol/L 98-107 [facility] Glucose [Mass/Vol] 91 mg/dL 74-106 [facility] Potassium [Moles/Vol] 4.0 mmol/L 3.5-5.1 [facility] Sodium [Moles/Vol] 142 mmol/L 136-145 [facility] WBC (Bld) [#/Vol] 6.9 10*3/uL 4.4-11.0 [facility] Blood erythrocytes count (nu mber/volume)Ordered By: Jose Raul Pulliam on 05-28-2023 RBC (Bld) [#/Vol] 4.28 10*6/uL 4.2-5.4 [facility] Blood hemoglobin measurement (mass/volume)Ordered By: Jose Raul Pulliam on 05-28-2023 Hemoglobin (Bld) [Mass/Vol] 11.7 g/dL 12.0-15.0 [facility] Blood platelet mean volumeOr dered By: Jose Raul Pulliam on 05-28-2023 Platelet mean volume (Bld) [Entitic vol] 9.8 fL 6.2-12.0 [facility] Determination of erythrocyte mean corpuscular volume (MCV)Ordered By: Jose Raul Pulliam on 05-28-2023 MCV (RBC) [Entitic vol] 87.6 fL 81-99 [facility] Hematocrit Auto (Bld) [Volum e fraction]Ordered By: Jose Raul Pulliam on 05-28-2023 Hematocrit (Bld) [Volume fraction] 37.5 % 37-47 [facility] Laboratory - Chemistry and C hemistry - challengeOrdered By: Jose Raul Pulliam on 05-28-2023 CO2 [Moles/Vol] 25.0 mmol/L 21.0-32.0 [facility] Urea nitrogen/Creatinine [Mass ratio] 23.5 mg/mg 10-20 [facility] Laboratory - Hematology and Cell countsOrdered By: Jose Raul Pulliam on 05-28-2023 Erythrocyte distribution width (RBC) [Entitic vol] 49.4 fL 35.1-43.9 [facility] Erythrocyte distribution width (RBC) [Ratio] 15.6 % 11.6-14.6 [facility] MCH (RBC) [Entitic mass] 27.3 pg 27.0-32.0 [facility] MCHC Auto (RBC) [Mass/Vol]Or dered By: Jose Raul Pulliam on 05-28-2023 MCHC (RBC) [Mass/Vol] 31.2 g/dL 32-36 [facility] No Panel InformationOrdered By: Jose Raul Pulliam on 05-28-2023 Estimated GFR (MDRD) Amer 99 mL/min >60 [facility] Comment on above: GFR Calc Estimated GFR (MDRD) Non-Af Amer 82 mL/min >60 [facility] Comment on above: Non- GFR Calc Platelets bldOrdered By: Sam Pulliam on 05-28-2023 Platelets (Bld) [#/Vol] 266 10*3/uL 150-450 [facility] Serum or plasma calcium milagros urement (mass/volume)Ordered By: Jose Raul Pulliam on 05-28-2023 Calcium [Mass/Vol] 8.8 mg/dL 8.5-10.1 [facility] Serum or plasma creatinine m easurement (mass/volume)Ordered By: Jose Raul Pulliam on 05-28-2023 Creatinine [Mass/Vol] 0.72 mg/dL 0.55-1.02 [facility] Comment on above: The validity of the calculated GFR & GFRAA in patients over 70 years has not been determined. Clinical correlation is essential. Serum or plasma urea nitroge n measurement (mass/volume)Ordered By: Jose Raul Pulliam on 05-28-2023 Urea nitrogen [Mass/Vol] 17 mg/dL -18 [facility] Thin prep Papanicolaou smear with manual screeningOrdered By: Jose Raul Pulliam on 05-28-2023 Thin prep Papanicolaou smear with manual screening 6 5-15 [facility] Basophil percentageOrdered B y: Jose Raul Pulliam on 04-30-2023 Chloride [Moles/Vol] 108 mmol/L 98-107 [facility] Glucose [Mass/Vol] 90 mg/dL 74-106 [facility] Potassium [Moles/Vol] 3.6 mmol/L 3.5-5.1 [facility] Sodium [Moles/Vol] 139 mmol/L 136-145 [facility] WBC (Bld) [#/Vol] 6.9 10*3/uL 4.4-11.0 [facility] Blood erythrocytes count (nu mber/volume)Ordered By: Jose Raul Pulliam on 04-30-2023 RBC (Bld) [#/Vol] 4.75 10*6/uL 4.2-5.4 [facility] Blood hemoglobin measurement (mass/volume)Ordered By: Jose Raul Pulliam on 04-30-2023 Hemoglobin (Bld) [Mass/Vol] 12.8 g/dL 12.0-15.0 [facility] Blood platelet mean volumeOr dered By: Jose Raul Pulliam on 04-30-2023 Platelet mean volume (Bld) [Entitic vol] 10.1 fL 6.2-12.0 [facility] Determination of erythrocyte mean corpuscular volume (MCV)Ordered By: Jose Raul Pulliam on 04-30-2023 MCV (RBC) [Entitic vol] 90.7 fL 81-99 [facility] Hematocrit Auto (Bld) [Volum e fraction]Ordered By: Jose Raul Pulliam on 04-30-2023 Hematocrit (Bld) [Volume fraction] 43.1 % 37-47 [facility] Laboratory - Chemistry and C hemistry - challengeOrdered By: Jose Raul Pulliam on 04-30-2023 CO2 [Moles/Vol] 27.0 mmol/L 21.0-32.0 [facility] Urea nitrogen/Creatinine [Mass ratio] 15.1 mg/mg 10-20 [facility] Laboratory - Hematology and Cell countsOrdered By: Jose Raul Pulliam on 04-30-2023 Erythrocyte distribution width (RBC) [Entitic vol] 50.4 fL 35.1-43.9 [facility] Erythrocyte distribution width (RBC) [Ratio] 15.1 % 11.6-14.6 [facility] MCH (RBC) [Entitic mass] 26.9 pg 27.0-32.0 [facility] MCHC Auto (RBC) [Mass/Vol]Or dered By: Jose Raul Pulliam on 04-30-2023 MCHC (RBC) [Mass/Vol] 29.7 g/dL 32-36 [facility] No Panel InformationOrdered By: Jose Raul Pulliam on 04-30-2023 Estimated GFR (MDRD) Amer 81 mL/min >60 [facility] Comment on above: GFR Calc Estimated GFR (MDRD) Non-Af Amer 67 mL/min >60 [facility] Comment on above: Non- GFR Calc Platelets bldOrdered By: Sam Pulliam on 04-30-2023 Platelets (Bld) [#/Vol] 349 10*3/uL 150-450 [facility] Serum or plasma calcium milagros urement (mass/volume)Ordered By: Jose Raul Pulliam on 04-30-2023 Calcium [Mass/Vol] 9.2 mg/dL 8.5-10.1 [facility] Serum or plasma creatinine m easurement (mass/volume)Ordered By: Jose Raul Pulliam on 04-30-2023 Creatinine [Mass/Vol] 0.86 mg/dL 0.55-1.02 [facility] Comment on above: The validity of the calculated GFR & GFRAA in patients over 70 years has not been determined. Clinical correlation is essential. Serum or plasma urea nitroge n measurement (mass/volume)Ordered By: Jose Raul Pulliam on 04-30-2023 Urea nitrogen [Mass/Vol] 13 mg/dL 7-18 [facility] Thin prep Papanicolaou smear with manual screeningOrdered By: Jose Raul Pulliam on 04-30-2023 Thin prep Papanicolaou smear with manual screening 4 5-15 [facility] Basophil percentageOrdered B y: Jose Raul Pulliam on 04-16-2023 Chloride [Moles/Vol] 110 mmol/L 98-107 [facility] Glucose [Mass/Vol] 98 mg/dL 74-106 [facility] Potassium [Moles/Vol] 3.9 mmol/L 3.5-5.1 [facility] Sodium [Moles/Vol] 141 mmol/L 136-145 [facility] WBC (Bld) [#/Vol] 6.0 10*3/uL 4.4-11.0 [facility] Blood erythrocytes count (nu mber/volume)Ordered By: Jose Raul Pulliam on 04-16-2023 RBC (Bld) [#/Vol] 4.38 10*6/uL 4.2-5.4 [facility] Blood hemoglobin measurement (mass/volume)Ordered By: Jose Raul Pulliam on 04-16-2023 Hemoglobin (Bld) [Mass/Vol] 11.9 g/dL 12.0-15.0 [facility] Blood platelet mean volumeOr dered By: Jose Raul Pulliam on 04-16-2023 Platelet mean volume (Bld) [Entitic vol] 9.4 fL 6.2-12.0 [facility] Determination of erythrocyte mean corpuscular volume (MCV)Ordered By: Jose Raul Pulliam on 04-16-2023 MCV (RBC) [Entitic vol] 86.1 fL 81-99 [facility] Hematocrit Auto (Bld) [Volum e fraction]Ordered By: Jose Raul Pulliam on 04-16-2023 Hematocrit (Bld) [Volume fraction] 37.7 % 37-47 [facility] Laboratory - Chemistry and C hemistry - challengeOrdered By: Jose Raul Pulliam on 04-16-2023 CO2 [Moles/Vol] 26.0 mmol/L 21.0-32.0 [facility] Urea nitrogen/Creatinine [Mass ratio] 13.0 mg/mg 10-20 [facility] Laboratory - Hematology and Cell countsOrdered By: Jose Raul Pulliam on 04-16-2023 Erythrocyte distribution width (RBC) [Entitic vol] 48.5 fL 35.1-43.9 [facility] Erythrocyte distribution width (RBC) [Ratio] 15.4 % 11.6-14.6 [facility] MCH (RBC) [Entitic mass] 27.2 pg 27.0-32.0 [facility] MCHC Auto (RBC) [Mass/Vol]Or dered By: Jose Raul Pulliam on 04-16-2023 MCHC (RBC) [Mass/Vol] 31.6 g/dL 32-36 [facility] No Panel InformationOrdered By: Jose Raul Pulliam on 04-16-2023 Estimated GFR (MDRD) Amer 92 mL/min >60 [facility] Comment on above: GFR Calc Estimated GFR (MDRD) Non-Af Amer 76 mL/min >60 [facility] Comment on above: Non- GFR Calc Platelets bldOrdered By: Sam Pulliam on 04-16-2023 Platelets (Bld) [#/Vol] 256 10*3/uL 150-450 [facility] Serum or plasma calcium milagros urement (mass/volume)Ordered By: Jose Raul Pulliam on 04-16-2023 Calcium [Mass/Vol] 8.7 mg/dL 8.5-10.1 [facility] Serum or plasma creatinine m easurement (mass/volume)Ordered By: Jose Raul Pulliam on 04-16-2023 Creatinine [Mass/Vol] 0.77 mg/dL 0.55-1.02 [facility] Comment on above: The validity of the calculated GFR & GFRAA in patients over 70 years has not been determined. Clinical correlation is essential. Serum or plasma urea nitroge n measurement (mass/volume)Ordered By: Jose Raul Pulliam on 04-16-2023 Urea nitrogen [Mass/Vol] 10 mg/dL 7-18 [facility] Thin prep Papanicolaou smear with manual screeningOrdered By: Jose Raul Pulliam on 04-16-2023 Thin prep Papanicolaou smear with manual screening 5 5-15 [facility] Basophil percentageOrdered B y: Jose Raul Pulliam on 04-02-2023 Chloride [Moles/Vol] 110 mmol/L 98-107 [facility] Glucose [Mass/Vol] 91 mg/dL 74-106 [facility] Potassium [Moles/Vol] 4.0 mmol/L 3.5-5.1 [facility] Sodium [Moles/Vol] 141 mmol/L 136-145 [facility] WBC (Bld) [#/Vol] 6.1 10*3/uL 4.4-11.0 [facility] Blood erythrocytes count (nu mber/volume)Ordered By: Jose Raul Pulliam on 04-02-2023 RBC (Bld) [#/Vol] 4.30 10*6/uL 4.2-5.4 [facility] Blood hemoglobin measurement (mass/volume)Ordered By: Jose Raul Pulliam on 04-02-2023 Hemoglobin (Bld) [Mass/Vol] 11.8 g/dL 12.0-15.0 [facility] Blood platelet mean volumeOr dered By: Jose Raul Pulliam on 04-02-2023 Platelet mean volume (Bld) [Entitic vol] 9.8 fL 6.2-12.0 [facility] Determination of erythrocyte mean corpuscular volume (MCV)Ordered By: Jose Raul Pulliam on 04-02-2023 MCV (RBC) [Entitic vol] 87.4 fL 81-99 [facility] Hematocrit Auto (Bld) [Volum e fraction]Ordered By: Jose Raul Pulliam on 04-02-2023 Hematocrit (Bld) [Volume fraction] 37.6 % 37-47 [facility] Laboratory - Chemistry and C hemistry - challengeOrdered By: [place]jennifer Pulliam on 04-02-2023 CO2 [Moles/Vol] 28.0 mmol/L 21.0-32.0 [facility] Urea nitrogen/Creatinine [Mass ratio] 16.4 mg/mg 10-20 [facility] Laboratory - Hematology and Cell countsOrdered By: Jose Raul Pulliam on 04-02-2023 Erythrocyte distribution width (RBC) [Entitic vol] 49.0 fL 35.1-43.9 [facility] Erythrocyte distribution width (RBC) [Ratio] 15.2 % 11.6-14.6 [facility] MCH (RBC) [Entitic mass] 27.4 pg 27.0-32.0 [facility] MCHC Auto (RBC) [Mass/Vol]Or dered By: Jose Raul Pulliam on 04-02-2023 MCHC (RBC) [Mass/Vol] 31.4 g/dL 32-36 [facility] No Panel InformationOrdered By: Jose Raul Pulliam on 04-02-2023 Estimated GFR (MDRD) Amer 98 mL/min >60 [facility] Comment on above: GFR Calc Estimated GFR (MDRD) Non-Af Amer 81 mL/min >60 [facility] Comment on above: Non- GFR Calc Platelets bldOrdered By: Sam Pulliam on 04-02-2023 Platelets (Bld) [#/Vol] 253 10*3/uL 150-450 [facility] Serum or plasma calcium milagros urement (mass/volume)Ordered By: Jose Raul Pulliam on 04-02-2023 Calcium [Mass/Vol] 8.7 mg/dL 8.5-10.1 [facility] Serum or plasma creatinine m easurement (mass/volume)Ordered By: Jose Raul Pulliam on 04-02-2023 Creatinine [Mass/Vol] 0.73 mg/dL 0.55-1.02 [facility] Comment on above: The validity of the calculated GFR & GFRAA in patients over 70 years has not been determined. Clinical correlation is essential. Serum or plasma urea nitroge n measurement (mass/volume)Ordered By: Jose Raul Pulliam on 04-02-2023 Urea nitrogen [Mass/Vol] 12 mg/dL 7-18 [facility] Thin prep Papanicolaou smear with manual screeningOrdered By: Jose Raul Pulliam on 04-02-2023 Thin prep Papanicolaou smear with manual screening 3 5-15 [facility] Basophil percentageOrdered B y: Jose Raul Pulliam on 03-19-2023 Chloride [Moles/Vol] 109 mmol/L 98-107 [facility] Glucose [Mass/Vol] 91 mg/dL 74-106 [facility] Potassium [Moles/Vol] 4.2 mmol/L 3.5-5.1 [facility] Sodium [Moles/Vol] 140 mmol/L 136-145 [facility] WBC (Bld) [#/Vol] 5.8 10*3/uL 4.4-11.0 [facility] Blood erythrocytes count (nu mber/volume)Ordered By: Jsoe Raul Pulliam on 03-19-2023 RBC (Bld) [#/Vol] 4.29 10*6/uL 4.2-5.4 [facility] Blood hemoglobin measurement (mass/volume)Ordered By: Jose Raul Pulliam on 03-19-2023 Hemoglobin (Bld) [Mass/Vol] 11.6 g/dL 12.0-15.0 [facility] Blood platelet mean volumeOr dered By: Jose Raul Pulliam on 03-19-2023 Platelet mean volume (Bld) [Entitic vol] 9.9 fL 6.2-12.0 [facility] Determination of erythrocyte mean corpuscular volume (MCV)Ordered By: Jose Raul Pulliam on 03-19-2023 MCV (RBC) [Entitic vol] 87.2 fL 81-99 [facility] Hematocrit Auto (Bld) [Volum e fraction]Ordered By: Jose Raul Pulliam on 03-19-2023 Hematocrit (Bld) [Volume fraction] 37.4 % 37-47 [facility] Laboratory - Chemistry and C hemistry - challengeOrdered By: di[place]feder[place]jennifer Pulliam on 03-19-2023 CO2 [Moles/Vol] 27.0 mmol/L 21.0-32.0 [facility] Urea nitrogen/Creatinine [Mass ratio] 20.9 mg/mg 10-20 [facility] Laboratory - Hematology and Cell countsOrdered By: Jose Raul Pulliam on 03-19-2023 Erythrocyte distribution width (RBC) [Entitic vol] 49.4 fL 35.1-43.9 [facility] Erythrocyte distribution width (RBC) [Ratio] 15.4 % 11.6-14.6 [facility] MCH (RBC) [Entitic mass] 27.0 pg 27.0-32.0 [facility] MCHC Auto (RBC) [Mass/Vol]Or dered By: Jose Raul Pulliam on 03-19-2023 MCHC (RBC) [Mass/Vol] 31.0 g/dL 32-36 [facility] No Panel InformationOrdered By: Jose Raul Pulliam on 03-19-2023 Estimated GFR (MDRD) Amer 93 mL/min >60 [facility] Comment on above: GFR Calc Estimated GFR (MDRD) Non-Af Amer 77 mL/min >60 [facility] Comment on above: Non- GFR Calc Platelets bldOrdered By: Sam Pulliam on 03-19-2023 Platelets (Bld) [#/Vol] 267 10*3/uL 150-450 [facility] Serum or plasma calcium milagros urement (mass/volume)Ordered By: Jose Raul Pulliam on 03-19-2023 Calcium [Mass/Vol] 8.6 mg/dL 8.5-10.1 [facility] Serum or plasma creatinine m easurement (mass/volume)Ordered By: Jose Raul Pulliam on 03-19-2023 Creatinine [Mass/Vol] 0.76 mg/dL 0.55-1.02 [facility] Comment on above: The validity of the calculated GFR & GFRAA in patients over 70 years has not been determined. Clinical correlation is essential. Serum or plasma urea nitroge n measurement (mass/volume)Ordered By: Jose Raul Pulliam on 03-19-2023 Urea nitrogen [Mass/Vol] 16 mg/dL 7-18 [facility] Thin prep Papanicolaou smear with manual screeningOrdered By: Jose Raul Pulliam on 03-19-2023 Thin prep Papanicolaou smear with manual screening 4 5-15 [facility] Basophil percentageOrdered B y: [facility] on 03-05-2023 Chloride [Moles/Vol] 111 mmol/L 98-107 [facility] Glucose [Mass/Vol] 87 mg/dL 74-106 [facility] Potassium [Moles/Vol] 4.0 mmol/L 3.5-5.1 [facility] Sodium [Moles/Vol] 140 mmol/L 136-145 [facility] WBC (Bld) [#/Vol] 5.8 10*3/uL 4.4-11.0 [facility] Blood erythrocytes count (nu mber/volume)Ordered By: [facility] on 03-05-2023 RBC (Bld) [#/Vol] 4.10 10*6/uL 4.2-5.4 [facility] Blood hemoglobin measurement (mass/volume)Ordered By: [facility] on 03-05-2023 Hemoglobin (Bld) [Mass/Vol] 11.1 g/dL 12.0-15.0 [facility] Blood platelet mean volumeOr dered By: [facility] on 03-05-2023 Platelet mean volume (Bld) [Entitic vol] 9.9 fL 6.2-12.0 [facility] Determination of erythrocyte mean corpuscular volume (MCV)Ordered By: [facility] on 03-05-2023 MCV (RBC) [Entitic vol] 87.6 fL 81-99 [facility] Hematocrit Auto (Bld) [Volum e fraction]Ordered By: [facility] on 03-05-2023 Hematocrit (Bld) [Volume fraction] 35.9 % 37-47 [facility] Laboratory - Chemistry and C hemistry - challengeOrdered By: [facility] on 03-05-2023 CO2 [Moles/Vol] 25.0 mmol/L 21.0-32.0 [facility] Urea nitrogen/Creatinine [Mass ratio] 19.6 mg/mg 10-20 [facility] Laboratory - Hematology and Cell countsOrdered By: [facility] on 03-05-2023 Erythrocyte distribution width (RBC) [Entitic vol] 49.8 fL 35.1-43.9 [facility] Erythrocyte distribution width (RBC) [Ratio] 15.6 % 11.6-14.6 [facility] MCH (RBC) [Entitic mass] 27.1 pg 27.0-32.0 [facility] MCHC Auto (RBC) [Mass/Vol]Or dered By: [facility] on 03-05-2023 MCHC (RBC) [Mass/Vol] 30.9 g/dL 32-36 [facility] No Panel InformationOrdered By: [facility] on 03-05-2023 Estimated GFR (MDRD) Amer 93 mL/min >60 [facility] Comment on above: GFR Calc Estimated GFR (MDRD) Non-Af Amer 77 mL/min >60 [facility] Comment on above: Non- GFR Calc Platelets bldOrdered By: [facility] on 03-05-2023 Platelets (Bld) [#/Vol] 251 10*3/uL 150-450 [facility] Serum or plasma calcium milagros urement (mass/volume)Ordered By: [facility] on 03-05-2023 Calcium [Mass/Vol] 8.6 mg/dL 8.5-10.1 [facility] Serum or plasma creatinine m easurement (mass/volume)Ordered By: [facility] on 03-05-2023 Creatinine [Mass/Vol] 0.76 mg/dL 0.55-1.02 [facility] Comment on above: The validity of the calculated GFR & GFRAA in patients over 70 years has not been determined. Clinical correlation is essential. Serum or plasma urea nitroge n measurement (mass/volume)Ordered By: [facility] on 03-05-2023 Urea nitrogen [Mass/Vol] 15 mg/dL 7-18 [facility] Thin prep Papanicolaou smear with manual screeningOrdered By: [facility] on 03-05-2023 Thin prep Papanicolaou smear with manual screening 4 5-15 [facility] Basophil percentageOrdered B y: Yahir Foster on 02-20-2023 Chloride [Moles/Vol] 112 mmol/L 98-107 [facility] Glucose [Mass/Vol] 90 mg/dL 74-106 [facility] Potassium [Moles/Vol] 4.1 mmol/L 3.5-5.1 [facility] Sodium [Moles/Vol] 142 mmol/L 136-145 [facility] WBC (Bld) [#/Vol] 6.8 10*3/uL 4.4-11.0 [facility] Blood erythrocytes count (nu mber/volume)Ordered By: Yahir Foster on 02-20-2023 RBC (Bld) [#/Vol] 4.52 10*6/uL 4.2-5.4 [facility] Blood hemoglobin measurement (mass/volume)Ordered By: Yahir Foster on 02-20-2023 Hemoglobin (Bld) [Mass/Vol] 12.3 g/dL 12.0-15.0 [facility] Blood platelet mean volumeOr dered By: Yahir Foster on 02-20-2023 Platelet mean volume (Bld) [Entitic vol] 9.8 fL 6.2-12.0 [facility] Determination of erythrocyte mean corpuscular volume (MCV)Ordered By: Yahir Foster on 02-20-2023 MCV (RBC) [Entitic vol] 88.7 fL 81-99 [facility] Hematocrit Auto (Bld) [Volum e fraction]Ordered By: Yahir Foster on 02-20-2023 Hematocrit (Bld) [Volume fraction] 40.1 % 37-47 [facility] Laboratory - Chemistry and C hemistry - challengeOrdered By: Yahir Foster on 02-20-2023 CO2 [Moles/Vol] 24.0 mmol/L 21.0-32.0 [facility] Urea nitrogen/Creatinine [Mass ratio] 15.9 mg/mg 10-20 [facility] Laboratory - Hematology and Cell countsOrdered By: Yahir Foster on 02-20-2023 Erythrocyte distribution width (RBC) [Entitic vol] 51.5 fL 35.1-43.9 [facility] Erythrocyte distribution width (RBC) [Ratio] 15.7 % 11.6-14.6 [facility] MCH (RBC) [Entitic mass] 27.2 pg 27.0-32.0 [facility] MCHC Auto (RBC) [Mass/Vol]Or dered By: Yahir Foster on 02-20-2023 MCHC (RBC) [Mass/Vol] 30.7 g/dL 32-36 [facility] No Panel InformationOrdered By: Yahir Foster on 02-20-2023 Estimated GFR (MDRD) Amer 86 mL/min >60 [facility] Comment on above: GFR Calc Estimated GFR (MDRD) Non-Af Amer 71 mL/min >60 [facility] Comment on above: Non- GFR Calc Platelets bldOrdered By: Jos Foster on 02-20-2023 Platelets (Bld) [#/Vol] 296 10*3/uL 150-450 [facility] Serum or plasma calcium milagros urement (mass/volume)Ordered By: Yahir Foster on 02-20-2023 Calcium [Mass/Vol] 9.0 mg/dL 8.5-10.1 [facility] Serum or plasma creatinine m easurement (mass/volume)Ordered By: Yahir Foster on 02-20-2023 Creatinine [Mass/Vol] 0.82 mg/dL 0.55-1.02 [facility] Comment on above: The validity of the calculated GFR & GFRAA in patients over 70 years has not been determined. Clinical correlation is essential. Serum or plasma urea nitroge n measurement (mass/volume)Ordered By: Yahir Foster on 02-20-2023 Urea nitrogen [Mass/Vol] 13 mg/dL 7-18 [facility] Thin prep Papanicolaou smear with manual screeningOrdered By: Yahir Foster on 02-20-2023 Thin prep Papanicolaou smear with manual screening 6 5-15 [facility] Basophil percentageOrdered B y: Jose Raul Pulliam on 02-06-2023 Chloride [Moles/Vol] 110 mmol/L 98-107 [facility] Glucose [Mass/Vol] 94 mg/dL 74-106 [facility] Potassium [Moles/Vol] 4.5 mmol/L 3.5-5.1 [facility] Sodium [Moles/Vol] 143 mmol/L 136-145 [facility] WBC (Bld) [#/Vol] 6.4 10*3/uL 4.4-11.0 [facility] Blood erythrocytes count (nu mber/volume)Ordered By: Jose Raul Pulliam on 02-06-2023 RBC (Bld) [#/Vol] 4.52 10*6/uL 4.2-5.4 [facility] Blood hemoglobin measurement (mass/volume)Ordered By: Jose Raul Pulliam on 02-06-2023 Hemoglobin (Bld) [Mass/Vol] 12.3 g/dL 12.0-15.0 [facility] Blood platelet mean volumeOr dered By: Jose Raul Pulliam on 02-06-2023 Platelet mean volume (Bld) [Entitic vol] 9.6 fL 6.2-12.0 [facility] Determination of erythrocyte mean corpuscular volume (MCV)Ordered By: Jose Raul Pulliam on 02-06-2023 MCV (RBC) [Entitic vol] 88.9 fL 81-99 [facility] Hematocrit Auto (Bld) [Volum e fraction]Ordered By: Jose Raul Pulliam on 02-06-2023 Hematocrit (Bld) [Volume fraction] 40.2 % 37-47 [facility] Laboratory - Chemistry and C hemistry - challengeOrdered By: Jose Raul Pulliam on 02-06-2023 CO2 [Moles/Vol] 25.0 mmol/L 21.0-32.0 [facility] Urea nitrogen/Creatinine [Mass ratio] 19.4 mg/mg 10-20 [facility] Laboratory - Hematology and Cell countsOrdered By: Jose Raul Pulliam on 02-06-2023 Erythrocyte distribution width (RBC) [Entitic vol] 50.7 fL 35.1-43.9 [facility] Erythrocyte distribution width (RBC) [Ratio] 15.6 % 11.6-14.6 [facility] MCH (RBC) [Entitic mass] 27.2 pg 27.0-32.0 [facility] MCHC Auto (RBC) [Mass/Vol]Or dered By: Jose Raul Pulliam on 02-06-2023 MCHC (RBC) [Mass/Vol] 30.6 g/dL 32-36 [facility] No Panel InformationOrdered By: Jose Raul Pulliam on 02-06-2023 Estimated GFR (MDRD) Amer 85 mL/min >60 [facility] Comment on above: GFR Calc Estimated GFR (MDRD) Non-Af Amer 70 mL/min >60 [facility] Comment on above: Non- GFR Calc Platelets bldOrdered By: Sam Pulliam on 02-06-2023 Platelets (Bld) [#/Vol] 290 10*3/uL 150-450 [facility] Serum or plasma calcium milagros urement (mass/volume)Ordered By: Jose Raul Pulliam on 02-06-2023 Calcium [Mass/Vol] 9.2 mg/dL 8.5-10.1 [facility] Serum or plasma creatinine m easurement (mass/volume)Ordered By: Jose Raul Pulliam on 02-06-2023 Creatinine [Mass/Vol] 0.82 mg/dL 0.55-1.02 [facility] Comment on above: The validity of the calculated GFR & GFRAA in patients over 70 years has not been determined. Clinical correlation is essential. Serum or plasma urea nitroge n measurement (mass/volume)Ordered By: Jose Raul Pulliam on 02-06-2023 Urea nitrogen [Mass/Vol] 16 mg/dL 7-18 [facility] Thin prep Papanicolaou smear with manual screeningOrdered By: Jose Raul Pulliam on 02-06-2023 Thin prep Papanicolaou smear with manual screening 8 5-15 [facility] Absolute lymphocyte countOrd ered By: Krissy Alex on 01-29-2023 Lymphocytes Auto (Unsp spec) [#/Vol] 1.64 10*3/uL 0.83-4.51 [facility] Basophil percentageOrdered B y: Krissy Alex on 01-29-2023 Basophils/100 WBC (Bld) 0.5 % 0-1 [facility] Bilirubin [Mass/Vol] 0.30 mg/dL 0.20-1.00 [facility] Comment on above: For patients on eltr ombopag therapy, use of Dimension Climax TBIL is not recommended. Chloride [Moles/Vol] 109 mmol/L 98-107 [facility] Eosinophils/100 WBC (Bld) 3.2 % 0-5 [facility] Glucose [Mass/Vol] 86 mg/dL 74-106 [facility] Neutrophils (Bld) [#/Vol] 3.5 10*3/uL 2.0-7.7 [facility] Neutrophils/100 WBC (Bld) 59.0 % 47-70 [facility] Potassium [Moles/Vol] 4.1 mmol/L 3.5-5.1 [facility] Protein [Mass/Vol] 6.4 g/dL 6.4-8.2 [facility] Sodium [Moles/Vol] 143 mmol/L 136-145 [facility] WBC (Bld) [#/Vol] 6.0 10*3/uL 4.4-11.0 [facility] Blood erythrocytes count (nu mber/volume)Ordered By: Krissy Alex on 01-29-2023 RBC (Bld) [#/Vol] 4.07 10*6/uL 4.2-5.4 [facility] Blood hemoglobin measurement (mass/volume)Ordered By: Krissy Alex on 01-29-2023 Hemoglobin (Bld) [Mass/Vol] 11.2 g/dL 12.0-15.0 [facility] Blood lymphocytes/100 leukoc ytesOrdered By: Krissy Alex on 01-29-2023 Lymphocytes/100 WBC (Bld) 27.4 % 19-41 [facility] Blood monocytes/100 leukocyt esOrdered By: Krissy Alex on 01-29-2023 Monocytes/100 WBC (Bld) 9.2 % 0-10 [facility] Blood platelet mean volumeOr dered By: Krissy Alex on 01-29-2023 Platelet mean volume (Bld) [Entitic vol] 10.1 fL 6.2-12.0 [facility] Determination of erythrocyte mean corpuscular volume (MCV)Ordered By: Krissy Alex on 01-29-2023 MCV (RBC) [Entitic vol] 88.0 fL 81-99 [facility] Hematocrit Auto (Bld) [Volum e fraction]Ordered By: Krissy Alex on 01-29-2023 Hematocrit (Bld) [Volume fraction] 35.8 % 37-47 [facility] Laboratory - Chemistry and C hemistry - challengeOrdered By: Krissy Alex on 01-29-2023 ALP [Catalytic activity/Vol] 78 U/L 45-117 [facility] ALT [Catalytic activity/Vol] 15 U/L 13-56 [facility] CO2 [Moles/Vol] 27.0 mmol/L 21.0-32.0 [facility] Globulin (S) [Mass/Vol] 3.5 g/dL 2.2-4.2 [facility] Urea nitrogen/Creatinine [Mass ratio] 17.4 mg/mg 10-20 [facility] Laboratory - Hematology and Cell countsOrdered By: Krissy Alex on 01-29-2023 Erythrocyte distribution width (RBC) [Entitic vol] 48.9 fL 35.1-43.9 [facility] Erythrocyte distribution width (RBC) [Ratio] 15.2 % 11.6-14.6 [facility] Immature granulocytes/100 WBC (Bld) 0.700 % 0.0-0.9 [facility] Comment on above: IG% - Immature Granu locytes (promyelocytes, myelocytes and metamyelocytes) > 1% indicates that a LEFT SHIFT is Present. MCH (RBC) [Entitic mass] 27.5 pg 27.0-32.0 [facility] Nucleated RBC/100 WBC (Bld) [Ratio] 0 % 0-5 [facility] MCHC Auto (RBC) [Mass/Vol]Or dered By: Krissy Alex on 01-29-2023 MCHC (RBC) [Mass/Vol] 31.3 g/dL 32-36 [facility] No Panel InformationOrdered By: Krissy Alex on 01-29-2023 Estimated GFR (MDRD) Amer 95 mL/min >60 [facility] Comment on above: GFR Calc Estimated GFR (MDRD) Non-Af Amer 79 mL/min >60 [facility] Comment on above: Non- GFR Calc Platelets bldOrdered By: Murray Alex on 01-29-2023 Platelets (Bld) [#/Vol] 261 10*3/uL 150-450 [facility] Serum or plasma albumin milagros urement (mass/volume)Ordered By: Krissy Alex on 01-29-2023 Albumin [Mass/Vol] 2.9 g/dL 3.2-5.0 [facility] Serum or plasma albumin/glob ulin mass ratioOrdered By: Krissy Alex on 01-29-2023 Albumin/Globulin [Mass ratio] 0.8 {ratio} 0.9-2.4 [facility] Serum or plasma calcium milagros urement (mass/volume)Ordered By: Krissy Alex on 01-29-2023 Calcium [Mass/Vol] 8.8 mg/dL 8.5-10.1 [facility] Serum or plasma creatinine m easurement (mass/volume)Ordered By: Krissy Alex on 01-29-2023 Creatinine [Mass/Vol] 0.75 mg/dL 0.55-1.02 [facility] Comment on above: The validity of the calculated GFR & GFRAA in patients over 70 years has not been determined. Clinical correlation is essential. Serum or plasma urea nitroge n measurement (mass/volume)Ordered By: Krissy Alex on 01-29-2023 Urea nitrogen [Mass/Vol] 13 mg/dL 7-18 [facility] Thin prep Papanicolaou smear with manual screeningOrdered By: Krissy Alex on 01-29-2023 Thin prep Papanicolaou smear with manual screening 13 U/L 15-37 [facility] Thin prep Papanicolaou smear with manual screening 7 5-15 [facility] Basophil percentageOrdered B y: Jose Raul Pulliam on 01-22-2023 Chloride [Moles/Vol] 110 mmol/L 98-107 [facility] Glucose [Mass/Vol] 93 mg/dL 74-106 [facility] Potassium [Moles/Vol] 4.3 mmol/L 3.5-5.1 [facility] Sodium [Moles/Vol] 144 mmol/L 136-145 [facility] WBC (Bld) [#/Vol] 6.4 10*3/uL 4.4-11.0 [facility] Blood erythrocytes count (nu mber/volume)Ordered By: Jose Raul Pulliam on 01-22-2023 RBC (Bld) [#/Vol] 4.17 10*6/uL 4.2-5.4 [facility] Blood hemoglobin measurement (mass/volume)Ordered By: Jose Raul Pulliam on 01-22-2023 Hemoglobin (Bld) [Mass/Vol] 11.4 g/dL 12.0-15.0 [facility] Blood platelet mean volumeOr dered By: Jose Raul Pulliam on 01-22-2023 Platelet mean volume (Bld) [Entitic vol] 10.0 fL 6.2-12.0 [facility] Determination of erythrocyte mean corpuscular volume (MCV)Ordered By: Jose Raul Pulliam on 01-22-2023 MCV (RBC) [Entitic vol] 89.4 fL 81-99 [facility] Hematocrit Auto (Bld) [Volum e fraction]Ordered By: Jose Raul Pulliam on 01-22-2023 Hematocrit (Bld) [Volume fraction] 37.3 % 37-47 [facility] Laboratory - Chemistry and C hemistry - challengeOrdered By: Jose Raul Pulliam on 01-22-2023 CO2 [Moles/Vol] 27.0 mmol/L 21.0-32.0 [facility] Urea nitrogen/Creatinine [Mass ratio] 18.2 mg/mg 10-20 [facility] Laboratory - Hematology and Cell countsOrdered By: Jose Raul Pulliam on 01-22-2023 Erythrocyte distribution width (RBC) [Entitic vol] 48.8 fL 35.1-43.9 [facility] Erythrocyte distribution width (RBC) [Ratio] 15.0 % 11.6-14.6 [facility] MCH (RBC) [Entitic mass] 27.3 pg 27.0-32.0 [facility] MCHC Auto (RBC) [Mass/Vol]Or dered By: Jose Raul Pulliam on 01-22-2023 MCHC (RBC) [Mass/Vol] 30.6 g/dL 32-36 [facility] No Panel InformationOrdered By: Jose Raul Pulliam on 01-22-2023 Estimated GFR (MDRD) Amer 85 mL/min >60 [facility] Comment on above: GFR Calc Estimated GFR (MDRD) Non-Af Amer 70 mL/min >60 [facility] Comment on above: Non- GFR Calc Platelets bldOrdered By: Sam Pulliam on 01-22-2023 Platelets (Bld) [#/Vol] 269 10*3/uL 150-450 [facility] Serum or plasma calcium milagros urement (mass/volume)Ordered By: Jose Raul Pulliam on 01-22-2023 Calcium [Mass/Vol] 8.6 mg/dL 8.5-10.1 [facility] Serum or plasma creatinine m easurement (mass/volume)Ordered By: Jose Raul Pulliam on 01-22-2023 Creatinine [Mass/Vol] 0.82 mg/dL 0.55-1.02 [facility] Comment on above: The validity of the calculated GFR & GFRAA in patients over 70 years has not been determined. Clinical correlation is essential. Serum or plasma urea nitroge n measurement (mass/volume)Ordered By: Jose Raul Pulliam on 01-22-2023 Urea nitrogen [Mass/Vol] 15 mg/dL 7-18 [facility] Thin prep Papanicolaou smear with manual screeningOrdered By: Jose Raul Pulliam on 01-22-2023 Thin prep Papanicolaou smear with manual screening 7 5-15 [facility] Basophil percentageOrdered B y: Yahir Foster on 01-08-2023 Chloride [Moles/Vol] 110 mmol/L 98-107 [facility] Glucose [Mass/Vol] 99 mg/dL 74-106 [facility] Potassium [Moles/Vol] 3.8 mmol/L 3.5-5.1 [facility] Sodium [Moles/Vol] 140 mmol/L 136-145 [facility] WBC (Bld) [#/Vol] 6.1 10*3/uL 4.4-11.0 [facility] Blood erythrocytes count (nu mber/volume)Ordered By: aYhir Foster on 01-08-2023 RBC (Bld) [#/Vol] 4.13 10*6/uL 4.2-5.4 [facility] Blood hemoglobin measurement (mass/volume)Ordered By: Yahir Foster on 01-08-2023 Hemoglobin (Bld) [Mass/Vol] 11.3 g/dL 12.0-15.0 [facility] Blood platelet mean volumeOr dered By: Yahir Foster on 01-08-2023 Platelet mean volume (Bld) [Entitic vol] 9.9 fL 6.2-12.0 [facility] Determination of erythrocyte mean corpuscular volume (MCV)Ordered By: Yahir Foster on 01-08-2023 MCV (RBC) [Entitic vol] 87.4 fL 81-99 [facility] Hematocrit Auto (Bld) [Volum e fraction]Ordered By: Yahir Foster on 01-08-2023 Hematocrit (Bld) [Volume fraction] 36.1 % 37-47 [facility] Laboratory - Chemistry and C hemistry - challengeOrdered By: Yahir Foster on 01-08-2023 CO2 [Moles/Vol] 23.0 mmol/L 21.0-32.0 [facility] Urea nitrogen/Creatinine [Mass ratio] 20.6 mg/mg 10-20 [facility] Laboratory - Hematology and Cell countsOrdered By: Yahir Foster on 01-08-2023 Erythrocyte distribution width (RBC) [Entitic vol] 48.4 fL 35.1-43.9 [facility] Erythrocyte distribution width (RBC) [Ratio] 15.0 % 11.6-14.6 [facility] MCH (RBC) [Entitic mass] 27.4 pg 27.0-32.0 [facility] MCHC Auto (RBC) [Mass/Vol]Or dered By: Yahir Foster on 01-08-2023 MCHC (RBC) [Mass/Vol] 31.3 g/dL 32-36 [facility] No Panel InformationOrdered By: Yahir Foster on 01-08-2023 Estimated GFR (MDRD) Amer 75 mL/min >60 [facility] Comment on above: GFR Calc Estimated GFR (MDRD) Non-Af Amer 62 mL/min >60 [facility] Comment on above: Non- GFR Calc Platelets bldOrdered By: Jos Foster on 01-08-2023 Platelets (Bld) [#/Vol] 247 10*3/uL 150-450 [facility] Serum or plasma calcium milagros urement (mass/volume)Ordered By: Yahir Foster on 01-08-2023 Calcium [Mass/Vol] 9.0 mg/dL 8.5-10.1 [facility] Serum or plasma creatinine m easurement (mass/volume)Ordered By: Yahir Foster on 01-08-2023 Creatinine [Mass/Vol] 0.92 mg/dL 0.55-1.02 [facility] Comment on above: The validity of the calculated GFR & GFRAA in patients over 70 years has not been determined. Clinical correlation is essential. Serum or plasma urea nitroge n measurement (mass/volume)Ordered By: Yahir Foster on 01-08-2023 Urea nitrogen [Mass/Vol] 19 mg/dL 7-18 [facility] Thin prep Papanicolaou smear with manual screeningOrdered By: Yahir Foster on 01-08-2023 Thin prep Papanicolaou smear with manual screening 7 5-15 [facility] Culture, urineOrdered By: Dr Jeronimo Dumont on 01-02-2023 Bacteria identified Cx Nom (U) Positive [facility] Absolute lymphocyte countOrd ered By: Dr. Dumont on 12-31-2022 Lymphocytes Auto (Unsp spec) [#/Vol] 1.68 10*3/uL 0.83-4.51 [facility] Basophil percentageOrdered B y: Dr. Dumont on 12-31-2022 Basophil percentage 5-10 SEEN /hpf 0-5 [facility] Basophils/100 WBC (Bld) 0.4 % 0-1 [facility] Bilirubin [Mass/Vol] 0.20 mg/dL 0.20-1.00 [facility] Comment on above: For patients on eltr ombopag therapy, use of Dimension Climax TBIL is not recommended. Chloride [Moles/Vol] 112 mmol/L 98-107 [facility] Eosinophils/100 WBC (Bld) 2.3 % 0-5 [facility] Glucose [Mass/Vol] 99 mg/dL 74-106 [facility] Neutrophils (Bld) [#/Vol] 5.1 10*3/uL 2.0-7.7 [facility] Neutrophils/100 WBC (Bld) 67.4 % 47-70 [facility] Potassium [Moles/Vol] 4.2 mmol/L 3.5-5.1 [facility] Protein [Mass/Vol] 7.2 g/dL 6.4-8.2 [facility] Sodium [Moles/Vol] 139 mmol/L 136-145 [facility] WBC (Bld) [#/Vol] 7.5 10*3/uL 4.4-11.0 [facility] Bilirubin Test strip Ql (U)O rdered By: Dr. Dumont on 12-31-2022 Bilirubin Ql (U) Negative Negative [facility] Blood erythrocytes count (nu mber/volume)Ordered By: Dr. Dumont on 12-31-2022 RBC (Bld) [#/Vol] 4.24 10*6/uL 4.2-5.4 [facility] Blood hemoglobin measurement (mass/volume)Ordered By: Dr. Dumont on 12-31-2022 Hemoglobin (Bld) [Mass/Vol] 11.9 g/dL 12.0-15.0 [facility] Blood lymphocytes/100 leukoc ytesOrdered By: Dr. Dumont on 12-31-2022 Lymphocytes/100 WBC (Bld) 22.4 % 19-41 [facility] Blood monocytes/100 leukocyt esOrdered By: Dr. Dumont on 12-31-2022 Monocytes/100 WBC (Bld) 7.2 % 0-10 [facility] Blood platelet mean volumeOr dered By: Dr. Dumont on 12-31-2022 Platelet mean volume (Bld) [Entitic vol] 9.4 fL 6.2-12.0 [facility] Culture, urineOrdered By: Monico Dumont on 12-31-2022 Bacteria identified Cx Nom (U) Positive [facility] Determination of erythrocyte mean corpuscular volume (MCV)Ordered By: Dr. Dumont on 12-31-2022 MCV (RBC) [Entitic vol] 87.5 fL 81-99 [facility] [facility] Hematocrit Auto (Bld) [Volum e fraction]Ordered By: Dr. Dumont on 12-31-2022 Hematocrit (Bld) [Volume fraction] 37.1 % 37-47 [facility] Ketones Test strip Ql (U)Ord ered By: Dr. Dumont on 12-31-2022 Ketones Ql (U) Negative Negative [facility] Laboratory - Chemistry and C hemistry - challengeOrdered By: Dr. Dumont on 12-31-2022 ALP [Catalytic activity/Vol] 83 U/L 45-117 [facility] ALT [Catalytic activity/Vol] 17 U/L 13-56 [facility] CO2 [Moles/Vol] 24.0 mmol/L 21.0-32.0 [facility] Globulin (S) [Mass/Vol] 3.8 g/dL 2.2-4.2 [facility] Urea nitrogen/Creatinine [Mass ratio] 17.5 mg/mg 10-20 [facility] Laboratory - Drug toxicology Ordered By: Dr. Dumont on 12-31-2022 Amphetamines Ql (U) Negative <1000 ng/mL [facility] Benzodiazepines Ql (U) Negative < 200 ng/mL [facility] Cannabinoids Screen Ql (U) Negative < 50 ng/mL [facility] Cocaine Ql (U) Negative < 300 ng/mL [facility] Opiates Ql (U) Negative < 300 ng/mL [facility] Laboratory - Hematology and Cell countsOrdered By: Dr. Dumont on 12-31-2022 Erythrocyte distribution width (RBC) [Entitic vol] 48.5 fL 35.1-43.9 [facility] Erythrocyte distribution width (RBC) [Ratio] 15.1 % 11.6-14.6 [facility] Immature granulocytes/100 WBC (Bld) 0.300 % 0.0-0.9 [facility] Comment on above: IG% - Immature Granu locytes (promyelocytes, myelocytes and metamyelocytes) > 1% indicates that a LEFT SHIFT is Present. MCH (RBC) [Entitic mass] 28.1 pg 27.0-32.0 [facility] Nucleated RBC/100 WBC (Bld) [Ratio] 0 % 0-5 [facility] MCHC Auto (RBC) [Mass/Vol]Or dered By: Dr. Dumont on 12-31-2022 MCHC (RBC) [Mass/Vol] 32.1 g/dL 32-36 [facility] Mucus LM Ql (Urine sed)Order ed By: Dr. Dumont on 12-31-2022 Mucus Ql (Urine sed) 0 SEEN /hpf [facility] Nitrite Test strip Ql (U)Ord ered By: Dr. Dumont on 12-31-2022 Nitrite Ql (U) Negative Negative [facility] No Panel InformationOrdered By: Dr. Dumont on 12-31-2022 MDMA (Ecstasy) Screen Negative < 500 ng/mL [facility] Urine Barbiturates Screen Negative < 200 ng/mL [facility] Urine Drug Screen Comment [facility] Comment on above: CONFIRMATORY TESTING FOR ALL POSITIVE URINE DRUG SCREENRESULTS WILL ONLY BE SENT OUT UPON PHYSICIAN ORDER. VISTA Urine Drug Screen methods provide only preliminaryanalytical test results. A more specific alternate chemicalmethod must be used in order to obtain a confirmedanalytical result. Gas chromatography/mass spectrometery(GC/MS) is the preferred confirmatory method. Clinicalconsideration and professional judgement should be appliedto any drug of abuse test result, particularly whenpreliminary positive results are used. URINE TCA TESTING MUST BE ORDERED SEPARATELY. USE TESTMNEMONIC: [facility] Urine Methadone Screen Negative < 300 ng/mL [facility] Estimated Creatinine Clearance Calc 39.08 ml/min [facility] Estimated GFR (MDRD) Amer 58 mL/min >60 [facility] Comment on above: GFR Calc Estimated GFR (MDRD) Non-Af Amer 48 mL/min >60 [facility] Comment on above: Non- GFR Calc Ethyl Alcohol Level < 3.0 mg/dL [facility] Comment on above: The serum:whole bloo d ethanol ratio is approximately 1.14and varies slightly with hematocrit. Medical Alcohol reference interval and critical value innon-tolerant individuals; 50 - 100 Impairment 100 Intoxication 100 - 250 Severe Poisoning 250 - 400 Deep/possible fatal coma Platelets bldOrdered By: Dr. Dumont on 12-31-2022 Platelets (Bld) [#/Vol] 245 10*3/uL 150-450 [facility] Protein Test strip Ql (U)Ord ered By: Dr. Dumont on 12-31-2022 Protein Ql (U) Negative Negative [facility] Serum or plasma albumin milagros urement (mass/volume)Ordered By: Dr. Dumont on 12-31-2022 Albumin [Mass/Vol] 3.4 g/dL 3.2-5.0 [facility] Serum or plasma albumin/glob ulin mass ratioOrdered By: Dr. Dumont on 12-31-2022 Albumin/Globulin [Mass ratio] 0.9 {ratio} 0.9-2.4 [facility] Serum or plasma calcium milagros urement (mass/volume)Ordered By: Dr. Dumont on 12-31-2022 Calcium [Mass/Vol] 9.2 mg/dL 8.5-10.1 [facility] Serum or plasma creatinine m easurement (mass/volume)Ordered By: Dr. Dumont on 12-31-2022 Creatinine [Mass/Vol] 1.14 mg/dL 0.55-1.02 [facility] Comment on above: The validity of the calculated GFR & GFRAA in patients over 70 years has not been determined. Clinical correlation is essential. Serum or plasma urea nitroge n measurement (mass/volume)Ordered By: Dr. Dumont on 12-31-2022 Urea nitrogen [Mass/Vol] 20 mg/dL 7-18 [facility] Squamous epithelial cells de tection in urine sediment by light microscopyOrdered By: Dr. Dumont on 12-31-2022 Epithelial cells.squamous LM Ql (Urine sed) 0-5 SEEN /hpf 5-10 [facility] Thin prep Papanicolaou smear with manual screeningOrdered By: Dr. Dumont on 12-31-2022 Thin prep Papanicolaou smear with manual screening 11 U/L 15-37 [facility] Thin prep Papanicolaou smear with manual screening 3 5-15 [facility] Urine blood detectionOrdered By: Dr. Dumont on 12-31-2022 RBC Ql (U) 10 /ul Negative [facility] RBC Ql (U) 0-5 SEEN /hpf 0-5 [facility] Urine clarityOrdered By: Dr. Dumont on 12-31-2022 Clarity (U) Clear Clear [facility] Urine color determinationOrd ered By: Dr. Dumont on 12-31-2022 Color (U) Yellow Yellow [facility] Urine glucose detectionOrder ed By: Dr. Dumont on 12-31-2022 Glucose Ql (U) Normal mg/dl Normal [facility] Urine leukocyte esterase det ection by dipstickOrdered By: Dr. Dumont on 12-31-2022 Leukocyte esterase Test strip Ql (U) 100 /ul Negative [facility] Urine pHOrdered By: Dr. Sachi kaur on 12-31-2022 pH (U) 5.0 [pH] 5.0 - 8.0 [facility] Urine phencyclidine (PCP) de tectionOrdered By: Dr. Dumont on 12-31-2022 Phencyclidine Ql (U) Negative < 25 ng/mL [facility] Urine sediment bacteria coun t by microscopy (number/high power field)Ordered By: Dr. Dumont on 12-31-2022 Bacteria LM.HPF (Urine sed) [#/Area] 1 /[HPF] None Seen [facility] Urine specific gravity measu rementOrdered By: Dr. Dumont on 12-31-2022 Specific gravity (U) [Rel density] 1.025 1.002-1.030 [facility] Urobilinogen Auto test strip Ql (U)Ordered By: Dr. Dumont on 12-31-2022 Urobilinogen Ql (U) Normal mg/dl Normal [facility] Basophil percentageOrdered B y: Jose Raul Pulliam on 12-25-2022 Chloride [Moles/Vol] 111 mmol/L 98-107 [facility] Glucose [Mass/Vol] 86 mg/dL 74-106 [facility] Potassium [Moles/Vol] 4.1 mmol/L 3.5-5.1 [facility] Sodium [Moles/Vol] 141 mmol/L 136-145 [facility] WBC (Bld) [#/Vol] 6.0 10*3/uL 4.4-11.0 [facility] Blood erythrocytes count (nu mber/volume)Ordered By: Jose Raul Pulliam on 12-25-2022 RBC (Bld) [#/Vol] 4.13 10*6/uL 4.2-5.4 [facility] Blood hemoglobin measurement (mass/volume)Ordered By: Jose Raul Pulliam on 12-25-2022 Hemoglobin (Bld) [Mass/Vol] 11.4 g/dL 12.0-15.0 [facility] Blood platelet mean volumeOr dered By: Jose Raul Pulliam on 12-25-2022 Platelet mean volume (Bld) [Entitic vol] 10.2 fL 6.2-12.0 [facility] Determination of erythrocyte mean corpuscular volume (MCV)Ordered By: Jose Raul Pulliam on 12-25-2022 MCV (RBC) [Entitic vol] 88.1 fL 81-99 [facility] Hematocrit Auto (Bld) [Volum e fraction]Ordered By: Jose Raul Pulliam on 12-25-2022 Hematocrit (Bld) [Volume fraction] 36.4 % 37-47 [facility] Laboratory - Chemistry and C hemistry - challengeOrdered By: Jose Raul Pulliam on 12-25-2022 CO2 [Moles/Vol] 25.0 mmol/L 21.0-32.0 [facility] Urea nitrogen/Creatinine [Mass ratio] 18.3 mg/mg 10-20 [facility] Laboratory - Hematology and Cell countsOrdered By: Jose Raul Pulliam on 12-25-2022 Erythrocyte distribution width (RBC) [Entitic vol] 48.1 fL 35.1-43.9 [facility] Erythrocyte distribution width (RBC) [Ratio] 14.8 % 11.6-14.6 [facility] MCH (RBC) [Entitic mass] 27.6 pg 27.0-32.0 [facility] MCHC Auto (RBC) [Mass/Vol]Or dered By: Jose Raul Pulliam on 12-25-2022 MCHC (RBC) [Mass/Vol] 31.3 g/dL 32-36 [facility] No Panel InformationOrdered By: Jose Raul Pulliam on 12-25-2022 Estimated GFR (MDRD) Amer 92 mL/min >60 [facility] Comment on above: GFR Calc Estimated GFR (MDRD) Non-Af Amer 76 mL/min >60 [facility] Comment on above: Non- GFR Calc Platelets bldOrdered By: Sam Pulliam on 12-25-2022 Platelets (Bld) [#/Vol] 219 10*3/uL 150-450 [facility] Serum or plasma calcium milagros urement (mass/volume)Ordered By: Jose Raul Pulliam on 12-25-2022 Calcium [Mass/Vol] 8.6 mg/dL 8.5-10.1 [facility] Serum or plasma creatinine m easurement (mass/volume)Ordered By: Jose Raul Pulliam on 12-25-2022 Creatinine [Mass/Vol] 0.77 mg/dL 0.55-1.02 [facility] Comment on above: The validity of the calculated GFR & GFRAA in patients over 70 years has not been determined. Clinical correlation is essential. Serum or plasma urea nitroge n measurement (mass/volume)Ordered By: Jose Raul Pulliam on 12-25-2022 Urea nitrogen [Mass/Vol] 14 mg/dL 7-18 [facility] Thin prep Papanicolaou smear with manual screeningOrdered By: Jose Raul Pulliam on 12-25-2022 Thin prep Papanicolaou smear with manual screening 5 5-15 [facility] Basophil percentageOrdered B y: Yahir Foster on 12-11-2022 Chloride [Moles/Vol] 109 mmol/L 98-107 [facility] Glucose [Mass/Vol] 113 mg/dL 74-106 [facility] Comment on above: Fasting Glucose resu lt from 100 to 125 mg/dL suggests IMPAIRED HOMEOSTASIS per A.D.A. criteria. Potassium [Moles/Vol] 3.7 mmol/L 3.5-5.1 [facility] Sodium [Moles/Vol] 140 mmol/L 136-145 [facility] WBC (Bld) [#/Vol] 6.6 10*3/uL 4.4-11.0 [facility] Blood erythrocytes count (nu mber/volume)Ordered By: Yahir Foster on 12-11-2022 RBC (Bld) [#/Vol] 4.63 10*6/uL 4.2-5.4 [facility] Blood hemoglobin measurement (mass/volume)Ordered By: Yahir Foster on 12-11-2022 Hemoglobin (Bld) [Mass/Vol] 12.7 g/dL 12.0-15.0 [facility] Blood platelet mean volumeOr dered By: Yahir Foster on 12-11-2022 Platelet mean volume (Bld) [Entitic vol] 10.0 fL 6.2-12.0 [facility] Determination of erythrocyte mean corpuscular volume (MCV)Ordered By: Yahir Foster on 12-11-2022 MCV (RBC) [Entitic vol] 89.4 fL 81-99 [facility] Hematocrit Auto (Bld) [Volum e fraction]Ordered By: Yahir Foster on 12-11-2022 Hematocrit (Bld) [Volume fraction] 41.4 % 37-47 [facility] Laboratory - Chemistry and C hemistry - challengeOrdered By: Yahir Foster on 12-11-2022 CO2 [Moles/Vol] 26.0 mmol/L 21.0-32.0 [facility] Urea nitrogen/Creatinine [Mass ratio] 16.4 mg/mg 10-20 [facility] Laboratory - Hematology and Cell countsOrdered By: Yahir Foster on 12-11-2022 Erythrocyte distribution width (RBC) [Entitic vol] 48.6 fL 35.1-43.9 [facility] Erythrocyte distribution width (RBC) [Ratio] 14.8 % 11.6-14.6 [facility] MCH (RBC) [Entitic mass] 27.4 pg 27.0-32.0 [facility] [Mass/Vol]Or dered By: Yahir Foster on 12-11-2022 MCHC (RBC) [Mass/Vol] 30.7 g/dL 32-36 [facility] No Panel InformationOrdered By: Yahir Foster on 12-11-2022 Estimated GFR (MDRD) Amer 75 mL/min >60 [facility] Comment on above: GFR Calc Estimated GFR (MDRD) Non-Af Amer 62 mL/min >60 [facility] Comment on above: Non- GFR Calc Platelets bldOrdered By: Jos Foster on 12-11-2022 Platelets (Bld) [#/Vol] 297 10*3/uL 150-450 [facility] Serum or plasma calcium milagros urement (mass/volume)Ordered By: Yahir Foster on 12-11-2022 Calcium [Mass/Vol] 9.2 mg/dL 8.5-10.1 [facility] Serum or plasma creatinine m easurement (mass/volume)Ordered By: Yahir Foster on 12-11-2022 Creatinine [Mass/Vol] 0.92 mg/dL 0.55-1.02 [facility] Comment on above: The validity of the calculated GFR & GFRAA in patients over 70 years has not been determined. Clinical correlation is essential. Serum or plasma urea nitroge n measurement (mass/volume)Ordered By: Yahir Foster on 12-11-2022 Urea nitrogen [Mass/Vol] 15 mg/dL 7-18 [facility] Thin prep Papanicolaou smear with manual screeningOrdered By: Yahir Foster on 12-11-2022 Thin prep Papanicolaou smear with manual screening 5 5-15 [facility] Basophil percentageOrdered B y: Frankymarisa Vincentlars on 11-27-2022 Chloride [Moles/Vol] 109 mmol/L 98-107 [facility] Glucose [Mass/Vol] 86 mg/dL 74-106 [facility] Potassium [Moles/Vol] 4.3 mmol/L 3.5-5.1 [facility] Sodium [Moles/Vol] 141 mmol/L 136-145 [facility] WBC (Bld) [#/Vol] 6.1 10*3/uL 4.4-11.0 [facility] Blood erythrocytes count (nu mber/volume)Ordered By: Jose Raul Pulliam on 11-27-2022 RBC (Bld) [#/Vol] 4.10 10*6/uL 4.2-5.4 [facility] Blood hemoglobin measurement (mass/volume)Ordered By: Jose Raul Pulliam on 11-27-2022 Hemoglobin (Bld) [Mass/Vol] 11.4 g/dL 12.0-15.0 [facility] Blood platelet mean volumeOr dered By: Jose Raul Pulliam on 11-27-2022 Platelet mean volume (Bld) [Entitic vol] 10.2 fL 6.2-12.0 [facility] Determination of erythrocyte mean corpuscular volume (MCV)Ordered By: Jose Raul Pulliam on 11-27-2022 MCV (RBC) [Entitic vol] 88.5 fL 81-99 [facility] Hematocrit Auto (Bld) [Volum e fraction]Ordered By: Jose Raul Pulliam on 11-27-2022 Hematocrit (Bld) [Volume fraction] 36.3 % 37-47 [facility] Laboratory - Chemistry and C hemistry - challengeOrdered By: Jose Raul Pulliam on 11-27-2022 CO2 [Moles/Vol] 25.0 mmol/L 21.0-32.0 [facility] Urea nitrogen/Creatinine [Mass ratio] 23.6 mg/mg 06-29 [facility] Laboratory - Hematology and Cell countsOrdered By: Jose Raul Pulliam on 11-27-2022 Erythrocyte distribution width (RBC) [Entitic vol] 48.2 fL 35.1-43.9 [facility] Erythrocyte distribution width (RBC) [Ratio] 14.7 % 11.6-14.6 [facility] MCH (RBC) [Entitic mass] 27.8 pg 27.0-32.0 [facility] MCHC Auto (RBC) [Mass/Vol]Or dered By: Jose Raul Pulliam on 11-27-2022 MCHC (RBC) [Mass/Vol] 31.4 g/dL 32-36 [facility] No Panel InformationOrdered By: Jose Raul Pulliam on 11-27-2022 Estimated GFR (MDRD) Amer 93 mL/min >60 [facility] Comment on above: GFR Calc Estimated GFR (MDRD) Non-Af Amer 77 mL/min >60 [facility] Comment on above: Non- GFR Calc Platelets bldOrdered By: Sam Pulliam on 11-27-2022 Platelets (Bld) [#/Vol] 263 10*3/uL 150-450 [facility] Serum or plasma calcium milagros urement (mass/volume)Ordered By: Jose Raul Pulliam on 11-27-2022 Calcium [Mass/Vol] 8.9 mg/dL 8.5-10.1 [facility] Serum or plasma creatinine m easurement (mass/volume)Ordered By: Jose Raul Pulliam on 11-27-2022 Creatinine [Mass/Vol] 0.76 mg/dL 0.55-1.02 [facility] Comment on above: The validity of the calculated GFR & GFRAA in patients over 70 years has not been determined. Clinical correlation is essential. Serum or plasma urea nitroge n measurement (mass/volume)Ordered By: Jose Raul Pulliam on 11-27-2022 Urea nitrogen [Mass/Vol] 18 mg/dL 7-18 [facility] Thin prep Papanicolaou smear with manual screeningOrdered By: Jose Raul Pulliam on 11-27-2022 Thin prep Papanicolaou smear with manual screening 7 5-15 [facility] Basophil percentageOrdered B y: Yahir Foster on 11-13-2022 Chloride [Moles/Vol] 111 mmol/L 98-107 [facility] Glucose [Mass/Vol] 90 mg/dL 74-106 [facility] Potassium [Moles/Vol] 4.1 mmol/L 3.5-5.1 [facility] Sodium [Moles/Vol] 142 mmol/L 136-145 [facility] WBC (Bld) [#/Vol] 6.0 10*3/uL 4.4-11.0 [facility] Blood erythrocytes count (nu mber/volume)Ordered By: Yahir Foster on 11-13-2022 RBC (Bld) [#/Vol] 4.01 10*6/uL 4.2-5.4 [facility] Blood hemoglobin measurement (mass/volume)Ordered By: Yahir Foster on 11-13-2022 Hemoglobin (Bld) [Mass/Vol] 11.0 g/dL 12.0-15.0 [facility] Blood platelet mean volumeOr dered By: Yahir Foster on 11-13-2022 Platelet mean volume (Bld) [Entitic vol] 10.1 fL 6.2-12.0 [facility] Determination of erythrocyte mean corpuscular volume (MCV)Ordered By: Yahir Foster on 11-13-2022 MCV (RBC) [Entitic vol] 89.3 fL 81-99 [facility] Hematocrit Auto (Bld) [Volum e fraction]Ordered By: Yahir Foster on 11-13-2022 Hematocrit (Bld) [Volume fraction] 35.8 % 37-47 [facility] Laboratory - Chemistry and C hemistry - challengeOrdered By: Yahir Foster on 11-13-2022 CO2 [Moles/Vol] 26.0 mmol/L 21.0-32.0 [facility] Urea nitrogen/Creatinine [Mass ratio] 19.7 mg/mg 10-20 [facility] Laboratory - Hematology and Cell countsOrdered By: Yahir Foster on 11-13-2022 Erythrocyte distribution width (RBC) [Entitic vol] 47.7 fL 35.1-43.9 [facility] Erythrocyte distribution width (RBC) [Ratio] 14.5 % 11.6-14.6 [facility] MCH (RBC) [Entitic mass] 27.4 pg 27.0-32.0 [facility] MCHC Auto (RBC) [Mass/Vol]Or dered By: Yahir Foster on 11-13-2022 MCHC (RBC) [Mass/Vol] 30.7 g/dL 32-36 [facility] No Panel InformationOrdered By: Yahir Foster on 11-13-2022 Estimated GFR (MDRD) Amer 93 mL/min >60 [facility] Comment on above: GFR Calc Estimated GFR (MDRD) Non-Af Amer 77 mL/min >60 [facility] Comment on above: Non- GFR Calc Platelets bldOrdered By: Jos Foster on 11-13-2022 Platelets (Bld) [#/Vol] 269 10*3/uL 150-450 [facility] Serum or plasma calcium milagros urement (mass/volume)Ordered By: Yahir Foster on 11-13-2022 Calcium [Mass/Vol] 8.7 mg/dL 8.5-10.1 [facility] Serum or plasma creatinine m easurement (mass/volume)Ordered By: Yahir Foster on 11-13-2022 Creatinine [Mass/Vol] 0.76 mg/dL 0.55-1.02 [facility] Comment on above: The validity of the calculated GFR & GFRAA in patients over 70 years has not been determined. Clinical correlation is essential. Serum or plasma urea nitroge n measurement (mass/volume)Ordered By: Yahir Foster on 11-13-2022 Urea nitrogen [Mass/Vol] 15 mg/dL 7-18 [facility] Thin prep Papanicolaou smear with manual screeningOrdered By: Yahir Foster on 11-13-2022 Thin prep Papanicolaou smear with manual screening 5 5-15 [facility] Basophil percentageOrdered B y: Yahir Foster on 10-30-2022 Chloride [Moles/Vol] 110 mmol/L 98-107 [facility] Glucose [Mass/Vol] 97 mg/dL 74-106 [facility] Potassium [Moles/Vol] 4.4 mmol/L 3.5-5.1 [facility] Sodium [Moles/Vol] 143 mmol/L 136-145 [facility] WBC (Bld) [#/Vol] 5.4 10*3/uL 4.4-11.0 [facility] Blood erythrocytes count (nu mber/volume)Ordered By: Yahir Foster on 10-30-2022 RBC (Bld) [#/Vol] 4.29 10*6/uL 4.2-5.4 [facility] Blood hemoglobin measurement (mass/volume)Ordered By: Yahir Foster on 10-30-2022 Hemoglobin (Bld) [Mass/Vol] 11.9 g/dL 12.0-15.0 [facility] Blood platelet mean volumeOr dered By: Yahir Foster on 10-30-2022 Platelet mean volume (Bld) [Entitic vol] 9.7 fL 6.2-12.0 [facility] Determination of erythrocyte mean corpuscular volume (MCV)Ordered By: Yahir Foster on 10-30-2022 MCV (RBC) [Entitic vol] 89.3 fL 81-99 [facility] Hematocrit Auto (Bld) [Volum e fraction]Ordered By: Yahir Foster on 10-30-2022 Hematocrit (Bld) [Volume fraction] 38.3 % 37-47 [facility] Laboratory - Chemistry and C hemistry - challengeOrdered By: Yahir Foster on 10-30-2022 CO2 [Moles/Vol] 27.0 mmol/L 21.0-32.0 [facility] Urea nitrogen/Creatinine [Mass ratio] 19.2 mg/mg 10-20 [facility] Laboratory - Hematology and Cell countsOrdered By: Yahir Foster on 10-30-2022 Erythrocyte distribution width (RBC) [Entitic vol] 48.9 fL 35.1-43.9 [facility] Erythrocyte distribution width (RBC) [Ratio] 14.9 % 11.6-14.6 [facility] MCH (RBC) [Entitic mass] 27.7 pg 27.0-32.0 [facility] MCHC Auto (RBC) [Mass/Vol]Or dered By: Yahir Foster on 10-30-2022 MCHC (RBC) [Mass/Vol] 31.1 g/dL 32-36 [facility] No Panel InformationOrdered By: Yahir Foster on 10-30-2022 Estimated GFR (MDRD) Amer 91 mL/min >60 [facility] Comment on above: GFR Calc Estimated GFR (MDRD) Non-Af Amer 75 mL/min >60 [facility] Comment on above: Non- GFR Calc Platelets bldOrdered By: Jos Foster on 10-30-2022 Platelets (Bld) [#/Vol] 255 10*3/uL 150-450 [facility] Serum or plasma calcium milagros urement (mass/volume)Ordered By: Yahir Foster on 10-30-2022 Calcium [Mass/Vol] 8.9 mg/dL 8.5-10.1 [facility] Serum or plasma creatinine m easurement (mass/volume)Ordered By: Yahir Foster on 02-20-2023 Creatinine [Mass/Vol] 0.78 mg/dL 0.55-1.02 [facility] Comment on above: The validity of the calculated GFR & GFRAA in patients over 70 years has not been determined. Clinical correlation is essential. Serum or plasma urea nitroge n measurement (mass/volume)Ordered By: Yahir Foster on 10-30-2022 Urea nitrogen [Mass/Vol] 15 mg/dL 7-18 [facility] Thin prep Papanicolaou smear with manual screeningOrdered By: Yahir Foster on 10-30-2022 Thin prep Papanicolaou smear with manual screening 6 5-15 [facility] Basophil percentageOrdered B y: Yahir Foster on 10-16-2022 Chloride [Moles/Vol] 109 mmol/L 98-107 [facility] Glucose [Mass/Vol] 101 mg/dL 74-106 [facility] Comment on above: Fasting Glucose resu lt from 100 to 125 mg/dL suggests IMPAIRED HOMEOSTASIS per A.D.A. criteria. Potassium [Moles/Vol] 3.9 mmol/L 3.5-5.1 [facility] Sodium [Moles/Vol] 143 mmol/L 136-145 [facility] WBC (Bld) [#/Vol] 5.7 10*3/uL 4.4-11.0 [facility] Blood erythrocytes count (nu mber/volume)Ordered By: Yahir Foster on 10-16-2022 RBC (Bld) [#/Vol] 4.65 10*6/uL 4.2-5.4 [facility] Blood hemoglobin measurement (mass/volume)Ordered By: Yahir Foster on 10-16-2022 Hemoglobin (Bld) [Mass/Vol] 12.8 g/dL 12.0-15.0 [facility] Blood platelet mean volumeOr dered By: Yahir oFster on 10-16-2022 Platelet mean volume (Bld) [Entitic vol] 9.8 fL 6.2-12.0 [facility] Determination of erythrocyte mean corpuscular volume (MCV)Ordered By: Yahir Foster on 10-16-2022 MCV (RBC) [Entitic vol] 90.8 fL 81-99 [facility] Hematocrit Auto (Bld) [Volum e fraction]Ordered By: Yahir Foster on 10-16-2022 Hematocrit (Bld) [Volume fraction] 42.2 % 37-47 [facility] Laboratory - Chemistry and C hemistry - challengeOrdered By: Yahir Foster on 10-16-2022 CO2 [Moles/Vol] 28.0 mmol/L 21.0-32.0 [facility] Urea nitrogen/Creatinine [Mass ratio] 15.8 mg/mg 10-20 [facility] Laboratory - Hematology and Cell countsOrdered By: Yahir Foster on 10-16-2022 Erythrocyte distribution width (RBC) [Entitic vol] 50.2 fL 35.1-43.9 [facility] Erythrocyte distribution width (RBC) [Ratio] 15.1 % 11.6-14.6 [facility] MCH (RBC) [Entitic mass] 27.5 pg 27.0-32.0 [facility] MCHC Auto (RBC) [Mass/Vol]Or dered By: Yahir Foster on 10-16-2022 MCHC (RBC) [Mass/Vol] 30.3 g/dL 32-36 [facility] No Panel InformationOrdered By: Yahir Foster on 10-16-2022 Estimated GFR (MDRD) Amer 85 mL/min >60 [facility] Comment on above: GFR Calc Estimated GFR (MDRD) Non-Af Amer 70 mL/min >60 [facility] Comment on above: Non- GFR Calc Platelets bldOrdered By: Jos Foster on 10-16-2022 Platelets (Bld) [#/Vol] 324 10*3/uL 150-450 [facility] Serum or plasma calcium milagros urement (mass/volume)Ordered By: Yahir Foster on 10-16-2022 Calcium [Mass/Vol] 9.1 mg/dL 8.5-10.1 [facility] Serum or plasma creatinine m easurement (mass/volume)Ordered By: Yahir Foster on 10-16-2022 Creatinine [Mass/Vol] 0.82 mg/dL 0.55-1.02 [facility] Comment on above: The validity of the calculated GFR & GFRAA in patients over 70 years has not been determined. Clinical correlation is essential. Serum or plasma urea nitroge n measurement (mass/volume)Ordered By: Yahir Foster on 10-16-2022 Urea nitrogen [Mass/Vol] 13 mg/dL 7-18 [facility] Thin prep Papanicolaou smear with manual screeningOrdered By: Yahir Foster on 10-16-2022 Thin prep Papanicolaou smear with manual screening 6 5-15 [facility] Basophil percentageOrdered B y: Jose Raul Pulliam on 10-02-2022 Chloride [Moles/Vol] 111 mmol/L 98-107 [facility] Glucose [Mass/Vol] 85 mg/dL 74-106 [facility] Potassium [Moles/Vol] 4.4 mmol/L 3.5-5.1 [facility] Sodium [Moles/Vol] 142 mmol/L 136-145 [facility] WBC (Bld) [#/Vol] 6.2 10*3/uL 4.4-11.0 [facility] Blood erythrocytes count (nu mber/volume)Ordered By: Jose Raul Pulliam on 10-02-2022 RBC (Bld) [#/Vol] 4.13 10*6/uL 4.2-5.4 [facility] Blood hemoglobin measurement (mass/volume)Ordered By: Jose Raul Pulliam on 10-02-2022 Hemoglobin (Bld) [Mass/Vol] 11.4 g/dL 12.0-15.0 [facility] Blood platelet mean volumeOr dered By: Jose Raul Pulliam on 10-02-2022 Platelet mean volume (Bld) [Entitic vol] 10.4 fL 6.2-12.0 [facility] Determination of erythrocyte mean corpuscular volume (MCV)Ordered By: Jose Raul Pulliam on 10-02-2022 MCV (RBC) [Entitic vol] 88.1 fL 81-99 [facility] Hematocrit Auto (Bld) [Volum e fraction]Ordered By: Jose Raul Pulliam on 10-02-2022 Hematocrit (Bld) [Volume fraction] 36.4 % 37-47 [facility] Laboratory - Chemistry and C hemistry - challengeOrdered By: Jose Raul Pulliam on 10-02-2022 CO2 [Moles/Vol] 22.0 mmol/L 21.0-32.0 [facility] Urea nitrogen/Creatinine [Mass ratio] 18.1 mg/mg 10-20 [facility] Laboratory - Hematology and Cell countsOrdered By: Jose Raul Pulliam on 10-02-2022 Erythrocyte distribution width (RBC) [Entitic vol] 48.1 fL 35.1-43.9 [facility] Erythrocyte distribution width (RBC) [Ratio] 15.0 % 11.6-14.6 [facility] MCH (RBC) [Entitic mass] 27.6 pg 27.0-32.0 [facility] MCHC Auto (RBC) [Mass/Vol]Or dered By: Jose Raul Pulliam on 10-02-2022 MCHC (RBC) [Mass/Vol] 31.3 g/dL 32-36 [facility] No Panel InformationOrdered By: Jose Raul Pulliam on 10-02-2022 Estimated GFR (MDRD) Amer 99 mL/min >60 [facility] Comment on above: GFR Calc Estimated GFR (MDRD) Non-Af Amer 82 mL/min >60 [facility] Comment on above: Non- GFR Calc Whole Blood Vitamin B1 Level 146.2 nmol/L 66.5-200.0 [facility] Comment on above: Performed at: [address] [id number] Director: Jw Sanabria MD, Phone: [phone] Platelets bldOrdered By: Sam Pulliam on 10-02-2022 Platelets (Bld) [#/Vol] 243 10*3/uL 150-450 [facility] Serum or plasma calcium milagros urement (mass/volume)Ordered By: Jose Raul Pulliam on 10-02-2022 Calcium [Mass/Vol] 8.9 mg/dL 8.5-10.1 [facility] Serum or plasma creatinine m easurement (mass/volume)Ordered By: Jose Raul Pulliam on 10-02-2022 Creatinine [Mass/Vol] 0.72 mg/dL 0.55-1.02 [facility] Comment on above: The validity of the calculated GFR & GFRAA in patients over 70 years has not been determined. Clinical correlation is essential. Serum or plasma folate measu rement (mass/volume)Ordered By: Jose Raul Pulliam on 10-02-2022 Folate [Mass/Vol] 64.60 ng/mL 3.1-55.4 [facility] Serum or plasma urea nitroge n measurement (mass/volume)Ordered By: Jose Raul Pulliam on 10-02-2022 Urea nitrogen [Mass/Vol] 13 mg/dL 7-18 [facility] Thin prep Papanicolaou smear with manual screeningOrdered By: Jose Raul Pulliam on 10-02-2022 Thin prep Papanicolaou smear with manual screening 9 5-15 [facility] Basophil percentageOrdered B y: Jose Raul Pulliam on 09-18-2022 Chloride [Moles/Vol] 110 mmol/L 98-107 [facility] Glucose [Mass/Vol] 98 mg/dL 74-106 [facility] Potassium [Moles/Vol] 4.0 mmol/L 3.5-5.1 [facility] Sodium [Moles/Vol] 142 mmol/L 136-145 [facility] WBC (Bld) [#/Vol] 6.5 10*3/uL 4.4-11.0 [facility] Blood erythrocytes count (nu mber/volume)Ordered By: Jose Raul Pulliam on 09-18-2022 RBC (Bld) [#/Vol] 4.71 10*6/uL 4.2-5.4 [facility] Blood hemoglobin measurement (mass/volume)Ordered By: Jose Raul Pulliam on 09-18-2022 Hemoglobin (Bld) [Mass/Vol] 13.2 g/dL 12.0-15.0 [facility] Blood platelet mean volumeOr dered By: Jose Raul Pulliam on 09-18-2022 Platelet mean volume (Bld) [Entitic vol] 10.4 fL 6.2-12.0 [facility] Determination of erythrocyte mean corpuscular volume (MCV)Ordered By: Jose Raul Pulliam on 09-18-2022 MCV (RBC) [Entitic vol] 86.8 fL 81-99 [facility] Hematocrit Auto (Bld) [Volum e fraction]Ordered By: Jose Raul Pulliam on 09-18-2022 Hematocrit (Bld) [Volume fraction] 40.9 % 37-47 [facility] Laboratory - Chemistry and C hemistry - challengeOrdered By: Jose Raul Pulliam on 09-18-2022 CO2 [Moles/Vol] 24.0 mmol/L 21.0-32.0 [facility] Urea nitrogen/Creatinine [Mass ratio] 20.5 mg/mg 10-20 [facility] Laboratory - Hematology and Cell countsOrdered By: Jose Raul Pulliam on 09-18-2022 Erythrocyte distribution width (RBC) [Entitic vol] 48.3 fL 35.1-43.9 [facility] Erythrocyte distribution width (RBC) [Ratio] 15.0 % 11.6-14.6 [facility] MCH (RBC) [Entitic mass] 28.0 pg 27.0-32.0 [facility] MCHC Auto (RBC) [Mass/Vol]Or dered By: Jose Raul Pulliam on 09-18-2022 MCHC (RBC) [Mass/Vol] 32.3 g/dL 32-36 [facility] No Panel InformationOrdered By: Jose Raul Pulliam on 09-18-2022 Estimated GFR (MDRD) Amer 84 mL/min >60 [facility] Comment on above: GFR Calc Estimated GFR (MDRD) Non-Af Amer 70 mL/min >60 [facility] Comment on above: Non- GFR Calc Platelets bldOrdered By: Sam Pulliam on 09-18-2022 Platelets (Bld) [#/Vol] 294 10*3/uL 150-450 [facility] Serum or plasma calcium milagros urement (mass/volume)Ordered By: Jose Raul Pulliam on 09-18-2022 Calcium [Mass/Vol] 9.2 mg/dL 8.5-10.1 [facility] Serum or plasma creatinine m easurement (mass/volume)Ordered By: Jose Raul Pulliam on 09-18-2022 Creatinine [Mass/Vol] 0.83 mg/dL 0.55-1.02 [facility] Comment on above: The validity of the calculated GFR & GFRAA in patients over 70 years has not been determined. Clinical correlation is essential. Serum or plasma urea nitroge n measurement (mass/volume)Ordered By: Jose Raul Pulliam on 09-18-2022 Urea nitrogen [Mass/Vol] 17 mg/dL 7-18 [facility] Thin prep Papanicolaou smear with manual screeningOrdered By: Jose Raul Pulliam on 09-18-2022 Thin prep Papanicolaou smear with manual screening 8 5-15 [facility] Basophil percentageOrdered B y: Jose Raul Pulliam on 09-05-2022 Chloride [Moles/Vol] 109 mmol/L 98-107 [facility] Glucose [Mass/Vol] 75 mg/dL 74-106 [facility] Potassium [Moles/Vol] 3.9 mmol/L 3.5-5.1 [facility] Sodium [Moles/Vol] 140 mmol/L 136-145 [facility] WBC (Bld) [#/Vol] 5.4 10*3/uL 4.4-11.0 [facility] Blood erythrocytes count (nu mber/volume)Ordered By: Jose Raul Pulliam on 09-05-2022 RBC (Bld) [#/Vol] 4.08 10*6/uL 4.2-5.4 [facility] Blood hemoglobin measurement (mass/volume)Ordered By: Jose Raul Pulliam on 09-05-2022 Hemoglobin (Bld) [Mass/Vol] 11.0 g/dL 12.0-15.0 [facility] Blood platelet mean volumeOr dered By: Jose Raul Pulliam on 09-05-2022 Platelet mean volume (Bld) [Entitic vol] 10.3 fL 6.2-12.0 [facility] Determination of erythrocyte mean corpuscular volume (MCV)Ordered By: Jose Raul Pulliam on 09-05-2022 MCV (RBC) [Entitic vol] 90.4 fL 81-99 [facility] Hematocrit Auto (Bld) [Volum e fraction]Ordered By: Jose Raul Pulliam on 09-05-2022 Hematocrit (Bld) [Volume fraction] 36.9 % 37-47 [facility] Laboratory - Chemistry and C hemistry - challengeOrdered By: Jose Raul Pulliam on 09-05-2022 CO2 [Moles/Vol] 24.0 mmol/L 21.0-32.0 [facility] Urea nitrogen/Creatinine [Mass ratio] 19.6 mg/mg 10-20 [facility] Laboratory - Hematology and Cell countsOrdered By: Jose Raul Pulliam on 09-05-2022 Erythrocyte distribution width (RBC) [Entitic vol] 50.2 fL 35.1-43.9 [facility] Erythrocyte distribution width (RBC) [Ratio] 15.2 % 11.6-14.6 [facility] MCH (RBC) [Entitic mass] 27.0 pg 27.0-32.0 [facility] MCHC Auto (RBC) [Mass/Vol]Or dered By: Jose Raul Pulliam on 09-05-2022 MCHC (RBC) [Mass/Vol] 29.8 g/dL 32-36 [facility] No Panel InformationOrdered By: Jose Raul Pulliam on 09-05-2022 Estimated GFR (MDRD) Amer 100 mL/min >60 [facility] Comment on above: GFR Calc Estimated GFR (MDRD) Non-Af Amer 83 mL/min >60 [facility] Comment on above: Non- GFR Calc Platelets bldOrdered By: Sam Pulliam on 09-05-2022 Platelets (Bld) [#/Vol] 258 10*3/uL 150-450 [facility] Serum or plasma calcium milagros urement (mass/volume)Ordered By: Jose Raul Pulliam on 09-05-2022 Calcium [Mass/Vol] 8.8 mg/dL 8.5-10.1 [facility] Serum or plasma creatinine m easurement (mass/volume)Ordered By: Jose Raul Pulliam on 09-05-2022 Creatinine [Mass/Vol] 0.72 mg/dL 0.55-1.02 [facility] Comment on above: The validity of the calculated GFR & GFRAA in patients over 70 years has not been determined. Clinical correlation is essential. Serum or plasma urea nitroge n measurement (mass/volume)Ordered By: Jose Raul Pulliam on 09-05-2022 Urea nitrogen [Mass/Vol] 14 mg/dL 7-18 [facility] Thin prep Papanicolaou smear with manual screeningOrdered By: Jose Raul Pulliam on 09-05-2022 Thin prep Papanicolaou smear with manual screening 7 5-15 [facility] Basophil percentageOrdered B y: Yahir Foster on 08-21-2022 Chloride [Moles/Vol] 111 mmol/L 98-107 [facility] Glucose [Mass/Vol] 98 mg/dL 74-106 [facility] Potassium [Moles/Vol] 4.3 mmol/L 3.5-5.1 [facility] Comment on above: Slight Hemolysis, Re sult may be falsely increased. Sodium [Moles/Vol] 140 mmol/L 136-145 [facility] WBC (Bld) [#/Vol] 6.3 10*3/uL 4.4-11.0 [facility] Blood erythrocytes count (nu mber/volume)Ordered By: Yahir Foster on 08-21-2022 RBC (Bld) [#/Vol] 4.60 10*6/uL 4.2-5.4 [facility] Blood hemoglobin measurement (mass/volume)Ordered By: Yahir Foster on 08-21-2022 Hemoglobin (Bld) [Mass/Vol] 12.6 g/dL 12.0-15.0 [facility] Blood platelet mean volumeOr dered By: Yahir Foster on 08-21-2022 Platelet mean volume (Bld) [Entitic vol] 10.0 fL 6.2-12.0 [facility] Determination of erythrocyte mean corpuscular volume (MCV)Ordered By: Yahir Foster on 08-21-2022 MCV (RBC) [Entitic vol] 87.4 fL 81-99 [facility] Hematocrit Auto (Bld) [Volum e fraction]Ordered By: Yahir Foster on 08-21-2022 Hematocrit (Bld) [Volume fraction] 40.2 % 37-47 [facility] Laboratory - Chemistry and C hemistry - challengeOrdered By: Yahir Foster on 08-21-2022 CO2 [Moles/Vol] 23.0 mmol/L 21.0-32.0 [facility] Urea nitrogen/Creatinine [Mass ratio] 16.9 mg/mg 10-20 [facility] Laboratory - Hematology and Cell countsOrdered By: aYhir Foster on 08-21-2022 Erythrocyte distribution width (RBC) [Entitic vol] 47.8 fL 35.1-43.9 [facility] Erythrocyte distribution width (RBC) [Ratio] 14.8 % 11.6-14.6 [facility] MCH (RBC) [Entitic mass] 27.4 pg 27.0-32.0 [facility] MCHC Auto (RBC) [Mass/Vol]Or dered By: Yahir Foster on 08-21-2022 MCHC (RBC) [Mass/Vol] 31.3 g/dL 32-36 [facility] No Panel InformationOrdered By: Yahir Foster on 08-21-2022 Estimated GFR (MDRD) Amer 85 mL/min >60 [facility] Comment on above: GFR Calc Estimated GFR (MDRD) Non-Af Amer 70 mL/min >60 [facility] Comment on above: Non- GFR Calc Platelets bldOrdered By: Jos Foster on 08-21-2022 Platelets (Bld) [#/Vol] 301 10*3/uL 150-450 [facility] Serum or plasma calcium milagros urement (mass/volume)Ordered By: Yahir Foster on 08-21-2022 Calcium [Mass/Vol] 9.1 mg/dL 8.5-10.1 [facility] Serum or plasma creatinine m easurement (mass/volume)Ordered By: Yahir Foster on 08-21-2022 Creatinine [Mass/Vol] 0.83 mg/dL 0.55-1.02 [facility] Comment on above: The validity of the calculated GFR & GFRAA in patients over 70 years has not been determined. Clinical correlation is essential. Serum or plasma urea nitroge n measurement (mass/volume)Ordered By: Yahir Foster on 08-21-2022 Urea nitrogen [Mass/Vol] 14 mg/dL 7-18 [facility] Thin prep Papanicolaou smear with manual screeningOrdered By: Yahir Foster on 08-21-2022 Thin prep Papanicolaou smear with manual screening 6 5-15 [facility] Basophil percentageOrdered B y: Yahir Foster on 08-07-2022 Chloride [Moles/Vol] 110 mmol/L 98-107 [facility] Glucose [Mass/Vol] 86 mg/dL 74-106 [facility] Potassium [Moles/Vol] 4.1 mmol/L 3.5-5.1 [facility] Sodium [Moles/Vol] 142 mmol/L 136-145 [facility] WBC (Bld) [#/Vol] 6.1 10*3/uL 4.4-11.0 [facility] Blood erythrocytes count (nu mber/volume)Ordered By: Yahir Foster on 08-07-2022 RBC (Bld) [#/Vol] 4.45 10*6/uL 4.2-5.4 [facility] Blood hemoglobin measurement (mass/volume)Ordered By: Yahir Foster on 08-07-2022 Hemoglobin (Bld) [Mass/Vol] 12.0 g/dL 12.0-15.0 [facility] Blood platelet mean volumeOr dered By: Yahir Foster on 08-07-2022 Platelet mean volume (Bld) [Entitic vol] 10.0 fL 6.2-12.0 [facility] Determination of erythrocyte mean corpuscular volume (MCV)Ordered By: Yahir Foster on 08-07-2022 MCV (RBC) [Entitic vol] 88.5 fL 81-99 [facility] Hematocrit Auto (Bld) [Volum e fraction]Ordered By: Yahir Foster on 08-07-2022 Hematocrit (Bld) [Volume fraction] 39.4 % 37-47 [facility] Laboratory - Chemistry and C hemistry - challengeOrdered By: Yahir Foster on 08-07-2022 CO2 [Moles/Vol] 24.0 mmol/L 21.0-32.0 [facility] Urea nitrogen/Creatinine [Mass ratio] 18.4 mg/mg 10-20 [facility] Laboratory - Hematology and Cell countsOrdered By: Yahir Foster on 08-07-2022 Erythrocyte distribution width (RBC) [Entitic vol] 48.8 fL 35.1-43.9 [facility] Erythrocyte distribution width (RBC) [Ratio] 15.0 % 11.6-14.6 [facility] MCH (RBC) [Entitic mass] 27.0 pg 27.0-32.0 [facility] MCHC Auto (RBC) [Mass/Vol]Or dered By: Yahir Foster on 08-07-2022 MCHC (RBC) [Mass/Vol] 30.5 g/dL 32-36 [facility] No Panel InformationOrdered By: Yahir Foster on 08-07-2022 Estimated GFR (MDRD) Amer 86 mL/min >60 [facility] Comment on above: GFR Calc Estimated GFR (MDRD) Non-Af Amer 71 mL/min >60 [facility] Comment on above: Non- GFR Calc Platelets bldOrdered By: Jos Foster on 08-07-2022 Platelets (Bld) [#/Vol] 276 10*3/uL 150-450 [facility] Serum or plasma calcium milagros urement (mass/volume)Ordered By: Yahir Foster on 08-07-2022 Calcium [Mass/Vol] 9.1 mg/dL 8.5-10.1 [facility] Serum or plasma creatinine m easurement (mass/volume)Ordered By: Yahir Foster on 08-07-2022 Creatinine [Mass/Vol] 0.81 mg/dL 0.55-1.02 [facility] Comment on above: The validity of the calculated GFR & GFRAA in patients over 70 years has not been determined. Clinical correlation is essential. Serum or plasma urea nitroge n measurement (mass/volume)Ordered By: Yahir Foster on 08-07-2022 Urea nitrogen [Mass/Vol] 15 mg/dL 7-18 [facility] Thin prep Papanicolaou smear with manual screeningOrdered By: Yahir Foster on 08-07-2022 Thin prep Papanicolaou smear with manual screening 8 5-15 [facility] Basophil percentageOrdered B y: Yahir Foster on 07-24-2022 Chloride [Moles/Vol] 106 mmol/L 98-107 [facility] Glucose [Mass/Vol] 85 mg/dL 74-106 [facility] Potassium [Moles/Vol] 3.9 mmol/L 3.5-5.1 [facility] Sodium [Moles/Vol] 141 mmol/L 136-145 [facility] WBC (Bld) [#/Vol] 7.2 10*3/uL 4.4-11.0 [facility] Blood erythrocytes count (nu mber/volume)Ordered By: Yahir Foster on 07-24-2022 RBC (Bld) [#/Vol] 4.67 10*6/uL 4.2-5.4 [facility] Blood hemoglobin measurement (mass/volume)Ordered By: Yahir Foster on 07-24-2022 Hemoglobin (Bld) [Mass/Vol] 12.8 g/dL 12.0-15.0 [facility] Blood platelet mean volumeOr dered By: Yahir Foster on 07-24-2022 Platelet mean volume (Bld) [Entitic vol] 10.5 fL 6.2-12.0 [facility] Determination of erythrocyte mean corpuscular volume (MCV)Ordered By: Yahir Foster on 07-24-2022 MCV (RBC) [Entitic vol] 87.6 fL 81-99 [facility] Hematocrit Auto (Bld) [Volum e fraction]Ordered By: Yahir Foster on 07-24-2022 Hematocrit (Bld) [Volume fraction] 40.9 % 37-47 [facility] Laboratory - Chemistry and C hemistry - challengeOrdered By: Yahir Foster on 07-24-2022 CO2 [Moles/Vol] 27.0 mmol/L 21.0-32.0 [facility] Urea nitrogen/Creatinine [Mass ratio] 17.9 mg/mg 10-20 [facility] Laboratory - Hematology and Cell countsOrdered By: Yahir Foster on 07-24-2022 Erythrocyte distribution width (RBC) [Entitic vol] 46.5 fL 35.1-43.9 [facility] Erythrocyte distribution width (RBC) [Ratio] 14.5 % 11.6-14.6 [facility] MCH (RBC) [Entitic mass] 27.4 pg 27.0-32.0 [facility] MCHC Auto (RBC) [Mass/Vol]Or dered By: Yahir Foster on 07-24-2022 MCHC (RBC) [Mass/Vol] 31.3 g/dL 32-36 [facility] No Panel InformationOrdered By: Yahir Foster on 07-24-2022 Estimated GFR (MDRD) Amer 90 mL/min >60 [facility] Comment on above: GFR Calc Estimated GFR (MDRD) Non-Af Amer 75 mL/min >60 [facility] Comment on above: Non- GFR Calc Platelets bldOrdered By: Jos Foster on 07-24-2022 Platelets (Bld) [#/Vol] 267 10*3/uL 150-450 [facility] Serum or plasma calcium milagros urement (mass/volume)Ordered By: Yahir Foster on 07-24-2022 Calcium [Mass/Vol] 9.0 mg/dL 8.5-10.1 [facility] Serum or plasma creatinine m easurement (mass/volume)Ordered By: Yahir Foster on 07-24-2022 Creatinine [Mass/Vol] 0.78 mg/dL 0.55-1.02 [facility] Comment on above: The validity of the calculated GFR & GFRAA in patients over 70 years has not been determined. Clinical correlation is essential. Serum or plasma urea nitroge n measurement (mass/volume)Ordered By: Yahir Foster on 07-24-2022 Urea nitrogen [Mass/Vol] 14 mg/dL 7-18 [facility] Thin prep Papanicolaou smear with manual screeningOrdered By: Yahir Foster on 07-24-2022 Thin prep Papanicolaou smear with manual screening 8 5-15 [facility] Basophil percentageOrdered B y: Yahir Foster on 07-10-2022 Chloride [Moles/Vol] 108 mmol/L 98-107 [facility] Glucose [Mass/Vol] 89 mg/dL 74-106 [facility] Potassium [Moles/Vol] 4.2 mmol/L 3.5-5.1 [facility] Sodium [Moles/Vol] 143 mmol/L 136-145 [facility] WBC (Bld) [#/Vol] 5.9 10*3/uL 4.4-11.0 [facility] Blood erythrocytes count (nu mber/volume)Ordered By: Yahir Foster on 07-10-2022 RBC (Bld) [#/Vol] 4.24 10*6/uL 4.2-5.4 [facility] Blood hemoglobin measurement (mass/volume)Ordered By: Yahir Foster on 07-10-2022 Hemoglobin (Bld) [Mass/Vol] 11.9 g/dL 12.0-15.0 [facility] Blood platelet mean volumeOr dered By: Yahir Foster on 07-10-2022 Platelet mean volume (Bld) [Entitic vol] 9.9 fL 6.2-12.0 [facility] Determination of erythrocyte mean corpuscular volume (MCV)Ordered By: Yahir Foster on 07-10-2022 MCV (RBC) [Entitic vol] 87.3 fL 81-99 [facility] Hematocrit Auto (Bld) [Volum e fraction]Ordered By: Yahir Foster on 07-10-2022 Hematocrit (Bld) [Volume fraction] 37.0 % 37-47 [facility] Laboratory - Chemistry and C hemistry - challengeOrdered By: Yahir Foster on 07-10-2022 CO2 [Moles/Vol] 24.0 mmol/L 21.0-32.0 [facility] Urea nitrogen/Creatinine [Mass ratio] 19.9 mg/mg 10-20 [facility] Laboratory - Hematology and Cell countsOrdered By: Yahir Foster on 07-10-2022 Erythrocyte distribution width (RBC) [Entitic vol] 46.5 fL 35.1-43.9 [facility] Erythrocyte distribution width (RBC) [Ratio] 14.4 % 11.6-14.6 [facility] MCH (RBC) [Entitic mass] 28.1 pg 27.0-32.0 [facility] MCHC Auto (RBC) [Mass/Vol]Or dered By: Yahir Foster on 07-10-2022 MCHC (RBC) [Mass/Vol] 32.2 g/dL 32-36 [facility] No Panel InformationOrdered By: Yahir Foster on 07-10-2022 Estimated GFR (MDRD) Amer 88 mL/min >60 [facility] Comment on above: GFR Calc Estimated GFR (MDRD) Non-Af Amer 72 mL/min >60 [facility] Comment on above: Non- GFR Calc Platelets bldOrdered By: Jos Foster on 07-10-2022 Platelets (Bld) [#/Vol] 256 10*3/uL 150-450 [facility] Serum or plasma calcium milagros urement (mass/volume)Ordered By: Yahir Foster on 07-10-2022 Calcium [Mass/Vol] 8.7 mg/dL 8.5-10.1 [facility] Serum or plasma creatinine m easurement (mass/volume)Ordered By: Yahir Foster on 07-10-2022 Creatinine [Mass/Vol] 0.80 mg/dL 0.55-1.02 [facility] Comment on above: The validity of the calculated GFR & GFRAA in patients over 70 years has not been determined. Clinical correlation is essential. Serum or plasma urea nitroge n measurement (mass/volume)Ordered By: Yahir Foster on 07-10-2022 Urea nitrogen [Mass/Vol] 16 mg/dL 7-18 [facility] Thin prep Papanicolaou smear with manual screeningOrdered By: Yahir Foster on 07-10-2022 Thin prep Papanicolaou smear with manual screening 11 5-15 [facility] Basophil percentageon 2021 Chloride [Moles/Vol] 109 mmol/L 98-107 [facility] Work Phone: Glucose [Mass/Vol] 86 mg/dL 74-106 [facility] Work Phone: Potassium [Moles/Vol] 4.1 mmol/L 3.5-5.1 [facility] Work Phone: Sodium [Moles/Vol] 144 mmol/L 136-145 [facility] Work Phone: WBC (Bld) [#/Vol] 5.8 10*3/uL 4.4-11.0 [facility] Work Phone: Blood erythrocytes count (nu mber/volume)on 06-26-2022 RBC (Bld) [#/Vol] 4.10 10*6/uL 4.2-5.4 [facility] Work Phone: Blood hemoglobin measurement (mass/volume)on 06-26-2022 Hemoglobin (Bld) [Mass/Vol] 11.4 g/dL 12.0-15.0 [facility] Work Phone: Blood platelet mean volumeon 06-26-2022 Platelet mean volume (Bld) [Entitic vol] 10.0 fL 6.2-12.0 [facility] Work Phone: Determination of erythrocyte mean corpuscular volume (MCV)on 06-26-2022 MCV (RBC) [Entitic vol] 89.0 fL 81-99 [facility] Work Phone: Hematocrit Auto (Bld) [Volum e fraction]on 06-26-2022 Hematocrit (Bld) [Volume fraction] 36.5 % 37-47 [facility] Work Phone: Laboratory - Chemistry and C hemistry - challengeon 06-26-2022 CO2 [Moles/Vol] 25.0 mmol/L 21.0-32.0 [facility] Work Phone: Urea nitrogen/Creatinine [Mass ratio] 18.7 mg/mg 10-20 [facility] Work Phone: Laboratory - Hematology and Cell countson 06-26-2022 Erythrocyte distribution width (RBC) [Entitic vol] 46.3 fL 35.1-43.9 [facility] Work Phone: Erythrocyte distribution width (RBC) [Ratio] 14.3 % 11.6-14.6 [facility] Work Phone: MCH (RBC) [Entitic mass] 27.8 pg 27.0-32.0 [facility] Work Phone: MCHC Auto (RBC) [Mass/Vol]on 06-26-2022 MCHC (RBC) [Mass/Vol] 31.2 g/dL 32-36 [facility] Work Phone: No Panel Informationon 06-26 Estimated GFR (MDRD) Amer 95 mL/min >60 [facility] Work Phone: Comment on above: GFR Calc Estimated GFR (MDRD) Non-Af Amer 78 mL/min >60 [facility] Work Phone: Comment on above: Non- GFR Calc Platelets bldon 06-26-2022 Platelets (Bld) [#/Vol] 239 10*3/uL 150-450 [facility] Work Phone: Serum or plasma calcium milagros urement (mass/volume)on 06-26-2022 Calcium [Mass/Vol] 8.9 mg/dL 8.5-10.1 [facility] Work Phone: Serum or plasma creatinine m easurement (mass/volume)on 06-26-2022 Creatinine [Mass/Vol] 0.75 mg/dL 0.55-1.02 [facility] Work Phone: Comment on above: The validity of the calculated GFR & GFRAA in patients over 70 years has not been determined. Clinical correlation is essential. Serum or plasma urea nitroge n measurement (mass/volume)on 06-26-2022 Urea nitrogen [Mass/Vol] 14 mg/dL 7-18 [facility] Work Phone: Thin prep Papanicolaou smear with manual screeningon 06-26-2022 Thin prep Papanicolaou smear with manual screening 01-22 [facility] Work Phone: Basophil percentageon 2021 Chloride [Moles/Vol] 107 mmol/L 98-107 [facility] Work Phone: Glucose [Mass/Vol] 91 mg/dL 74-106 [facility] Work Phone: Potassium [Moles/Vol] 3.9 mmol/L 3.5-5.1 [facility] Work Phone: Sodium [Moles/Vol] 141 mmol/L 136-145 [facility] Work Phone: WBC (Bld) [#/Vol] 6.1 10*3/uL 4.4-11.0 [facility] Work Phone: Blood erythrocytes count (nu mber/volume)on 06-12-2022 RBC (Bld) [#/Vol] 4.62 10*6/uL 4.2-5.4 [facility] Work Phone: Blood hemoglobin measurement (mass/volume)on 06-12-2022 Hemoglobin (Bld) [Mass/Vol] 12.8 g/dL 12.0-15.0 [facility] Work Phone: Blood platelet mean volumeon 06-12-2022 Platelet mean volume (Bld) [Entitic vol] 9.7 fL 6.2-12.0 [facility] Work Phone: Determination of erythrocyte mean corpuscular volume (MCV)on 06-12-2022 MCV (RBC) [Entitic vol] 90.3 fL 81-99 [facility] Work Phone: Hematocrit Auto (Bld) [Volum e fraction]on 06-12-2022 Hematocrit (Bld) [Volume fraction] 41.7 % 37-47 [facility] Work Phone: Laboratory - Chemistry and C hemistry - challengeon 06-12-2022 CO2 [Moles/Vol] 28.0 mmol/L 21.0-32.0 [facility] Work Phone: Urea nitrogen/Creatinine [Mass ratio] 19.3 mg/mg 10-20 [facility] Work Phone: Laboratory - Hematology and Cell countson 06-12-2022 Erythrocyte distribution width (RBC) [Entitic vol] 48.3 fL 35.1-43.9 [facility] Work Phone: Erythrocyte distribution width (RBC) [Ratio] 14.6 % 11.6-14.6 [facility] Work Phone: MCH (RBC) [Entitic mass] 27.7 pg 27.0-32.0 [facility] Work Phone: MCHC Auto (RBC) [Mass/Vol]on 06-12-2022 MCHC (RBC) [Mass/Vol] 30.7 g/dL 32-36 [facility] Work Phone: No Panel Informationon 06-12 Estimated GFR (MDRD) Amer 91 mL/min >60 [facility] Work Phone: Comment on above: GFR Calc Estimated GFR (MDRD) Non-Af Amer 75 mL/min >60 [facility] Work Phone: Comment on above: Non- GFR Calc Platelets bldon 06-12-2022 Platelets (Bld) [#/Vol] 293 10*3/uL 150-450 [facility] Work Phone: Serum or plasma calcium milagros urement (mass/volume)on 06-12-2022 Calcium [Mass/Vol] 9.3 mg/dL 8.5-10.1 [facility] Work Phone: Serum or plasma creatinine m easurement (mass/volume)on 06-12-2022 Creatinine [Mass/Vol] 0.78 mg/dL 0.55-1.02 [facility] Work Phone: Comment on above: The validity of the calculated GFR & GFRAA in patients over 70 years has not been determined. Clinical correlation is essential. Serum or plasma urea nitroge n measurement (mass/volume)on 06-12-2022 Urea nitrogen [Mass/Vol] 15 mg/dL 7-18 [facility] Work Phone: Thin prep Papanicolaou smear with manual screeningon 06-12-2022 Thin prep Papanicolaou smear with manual screening 6 5-15 [facility] Work Phone: Basophil percentageon 2021 Chloride [Moles/Vol] 108 mmol/L 98-107 [facility] Work Phone: Glucose [Mass/Vol] 88 mg/dL 74-106 [facility] Work Phone: Potassium [Moles/Vol] 4.0 mmol/L 3.5-5.1 [facility] Work Phone: Sodium [Moles/Vol] 140 mmol/L 136-145 [facility] Work Phone: WBC (Bld) [#/Vol] 6.0 10*3/uL 4.4-11.0 [facility] Work Phone: Blood erythrocytes count (nu mber/volume)on 05-29-2022 RBC (Bld) [#/Vol] 4.13 10*6/uL 4.2-5.4 [facility] Work Phone: Blood hemoglobin measurement (mass/volume)on 05-29-2022 Hemoglobin (Bld) [Mass/Vol] 11.7 g/dL 12.0-15.0 [facility] Work Phone: Blood platelet mean volumeon 05-29-2022 Platelet mean volume (Bld) [Entitic vol] 10.1 fL 6.2-12.0 [facility] Work Phone: Determination of erythrocyte mean corpuscular volume (MCV)on 05-29-2022 MCV (RBC) [Entitic vol] 89.6 fL 81-99 [facility] Work Phone: Hematocrit Auto (Bld) [Volum e fraction]on 05-29-2022 Hematocrit (Bld) [Volume fraction] 37.0 % 37-47 [facility] Work Phone: Laboratory - Chemistry and C hemistry - challengeon 05-29-2022 CO2 [Moles/Vol] 25.0 mmol/L 21.0-32.0 [facility] Work Phone: Urea nitrogen/Creatinine [Mass ratio] 16.8 mg/mg 10-20 [facility] Work Phone: Laboratory - Hematology and Cell countson 05-29-2022 Erythrocyte distribution width (RBC) [Entitic vol] 46.7 fL 35.1-43.9 [facility] Work Phone: Erythrocyte distribution width (RBC) [Ratio] 14.3 % 11.6-14.6 [facility] Work Phone: MCH (RBC) [Entitic mass] 28.3 pg 27.0-32.0 [facility] Work Phone: MCHC Auto (RBC) [Mass/Vol]on 05-29-2022 MCHC (RBC) [Mass/Vol] 31.6 g/dL 32-36 [facility]: No Panel Informationon 05-29 Estimated GFR (MDRD) Amer 92 mL/min >60 [facility] Work Phone: Comment on above: GFR Calc Estimated GFR (MDRD) Non-Af Amer 76 mL/min >60 [facility] Work Phone: Comment on above: Non- GFR Calc Platelets bldon 05-29-2022 Platelets (Bld) [#/Vol] 256 10*3/uL 150-450 [facility] Work Phone: Serum or plasma calcium milagros urement (mass/volume)on 05-29-2022 Calcium [Mass/Vol] 9.0 mg/dL 8.5-10.1 [facility] Work Phone: Serum or plasma creatinine m easurement (mass/volume)on 05-29-2022 Creatinine [Mass/Vol] 0.77 mg/dL 0.55-1.02 [facility] Work Phone: Comment on above: The validity of the calculated GFR & GFRAA in patients over 70 years has not been determined. Clinical correlation is essential. Serum or plasma urea nitroge n measurement (mass/volume)on 05-29-2022 Urea nitrogen [Mass/Vol] 13 mg/dL 7-18 [facility] Work Phone: Thin prep Papanicolaou smear with manual screeningon 05-29-2022 Thin prep Papanicolaou smear with manual screening 7 5-15 [facility] Work Phone: Basophil percentageon 2021 Chloride [Moles/Vol] 111 mmol/L 98-107 [facility] Work Phone: Glucose [Mass/Vol] 84 mg/dL 74-106 [facility] Work Phone: Potassium [Moles/Vol] 4.1 mmol/L 3.5-5.1 [facility] Work Phone: Sodium [Moles/Vol] 142 mmol/L 136-145 [facility] Work Phone: WBC (Bld) [#/Vol] 5.7 10*3/uL 4.4-11.0 [facility] Work Phone: Blood erythrocytes count (nu mber/volume)on 05-16-2022 RBC (Bld) [#/Vol] 4.06 10*6/uL 4.2-5.4 [facility] Work Phone: Blood hemoglobin measurement (mass/volume)on 05-16-2022 Hemoglobin (Bld) [Mass/Vol] 11.6 g/dL 12.0-15.0 [facility] Work Phone: Blood platelet mean volumeon 05-16-2022 Platelet mean volume (Bld) [Entitic vol] 10.2 fL 6.2-12.0 [facility] Work Phone: Determination of erythrocyte mean corpuscular volume (MCV)on 05-16-2022 MCV (RBC) [Entitic vol] 89.9 fL 81-99 [facility] Work Phone: Hematocrit Auto (Bld) [Volum e fraction]on 05-16-2022 Hematocrit (Bld) [Volume fraction] 36.5 % 37-47 [facility] Work Phone: Laboratory - Chemistry and C hemistry - challengeon 05-16-2022 CO2 [Moles/Vol] 25.0 mmol/L 21.0-32.0 [facility] Work Phone: Urea nitrogen/Creatinine [Mass ratio] 20.6 mg/mg 10-20 [facility] Work Phone: Laboratory - Hematology and Cell countson 05-16-2022 Erythrocyte distribution width (RBC) [Entitic vol] 48.6 fL 35.1-43.9 [facility] Work Phone: Erythrocyte distribution width (RBC) [Ratio] 14.6 % 11.6-14.6 [facility] Work Phone: MCH (RBC) [Entitic mass] 28.6 pg 27.0-32.0 [facility] Work Phone: MCHC Auto (RBC) [Mass/Vol]on 05-16-2022 MCHC (RBC) [Mass/Vol] 31.8 g/dL 32-36 [facility] Work Phone: No Panel Informationon 05-16 Estimated GFR (MDRD) Amer 98 mL/min >60 [facility] Work Phone: Comment on above: GFR Calc Estimated GFR (MDRD) Non-Af Amer 81 mL/min >60 [facility] Work Phone: Comment on above: Non- GFR Calc Platelets bldon 05-16-2022 Platelets (Bld) [#/Vol] 247 10*3/uL 150-450 [facility] Work Phone: Serum or plasma calcium milagros urement (mass/volume)on 05-16-2022 Calcium [Mass/Vol] 9.0 mg/dL 8.5-10.1 [facility] Work Phone: Serum or plasma creatinine m easurement (mass/volume)on 05-16-2022 Creatinine [Mass/Vol] 0.73 mg/dL 0.55-1.02 [facility] Work Phone: Comment on above: The validity of the calculated GFR & GFRAA in patients over 70 years has not been determined. Clinical correlation is essential. Serum or plasma urea nitroge n measurement (mass/volume)on 05-16-2022 Urea nitrogen [Mass/Vol] 15 mg/dL 7-18 [facility] Work Phone: Thin prep Papanicolaou smear with manual screeningon 05-16-2022 Thin prep Papanicolaou smear with manual screening 6 5-15 [facility] Work Phone: Basophil percentageon 2021 Chloride [Moles/Vol] 111 mmol/L 98-107 [facility] Work Phone: Glucose [Mass/Vol] 90 mg/dL 74-106 [facility] Work Phone: Potassium [Moles/Vol] 4.2 mmol/L 3.5-5.1 [facility] Work Phone: Sodium [Moles/Vol] 141 mmol/L 136-145 [facility] Work Phone: WBC (Bld) [#/Vol] 5.9 10*3/uL 4.4-11.0 [facility] Work Phone: Blood erythrocytes count (nu mber/volume)on 05-01-2022 RBC (Bld) [#/Vol] 3.99 10*6/uL 4.2-5.4 [facility] Work [facility]: Blood hemoglobin measurement (mass/volume)on 05-01-2022 Hemoglobin (Bld) [Mass/Vol] 11.2 g/dL 12.0-15.0 [facility] Work Phone: Blood platelet mean volumeon 05-01-2022 Platelet mean volume (Bld) [Entitic vol] 10.1 fL 6.2-12.0 [facility] Work Phone: Determination of erythrocyte mean corpuscular volume (MCV)on 05-01-2022 MCV (RBC) [Entitic vol] 89.7 fL 81-99 [facility] Work Phone: Hematocrit Auto (Bld) [Volum e fraction]on 05-01-2022 Hematocrit (Bld) [Volume fraction] 35.8 % 37-47 [facility] Work Phone: Laboratory - Chemistry and C hemistry - challengeon 05-01-2022 CO2 [Moles/Vol] 26.0 mmol/L 21.0-32.0 [facility] Work Phone: Urea nitrogen/Creatinine [Mass ratio] 17.1 mg/mg 10-20 [facility] Work Phone: Laboratory - Hematology and Cell countson 05-01-2022 Erythrocyte distribution width (RBC) [Entitic vol] 48.2 fL 35.1-43.9 [facility] Work Phone: Erythrocyte distribution width (RBC) [Ratio] 14.7 % 11.6-14.6 [facility] Work Phone: MCH (RBC) [Entitic mass] 28.1 pg 27.0-32.0 [facility] Work Phone: MCHC Auto (RBC) [Mass/Vol]on 05-01-2022 MCHC (RBC) [Mass/Vol] 31.3 g/dL 32-36 [facility] Work Phone: No Panel Informationon 05-01 Estimated GFR (MDRD) Amer 93 mL/min >60 [facility] Work Phone: Comment on above: GFR Calc Estimated GFR (MDRD) Non-Af Amer 77 mL/min >60 [facility] Work Phone: Comment on above: Non- GFR Calc Platelets bldon 05-01-2022 Platelets (Bld) [#/Vol] 254 10*3/uL 150-450 [facility] Work Phone: Serum or plasma calcium milagros urement (mass/volume)on 05-01-2022 Calcium [Mass/Vol] 9.0 mg/dL 8.5-10.1 [facility] Work Phone: Serum or plasma creatinine m easurement (mass/volume)on 05-01-2022 Creatinine [Mass/Vol] 0.76 mg/dL 0.55-1.02 [facility] Work Phone: Comment on above: The validity of the calculated GFR & GFRAA in patients over 70 years has not been determined. Clinical correlation is essential. Serum or plasma urea nitroge n measurement (mass/volume)on 05-01-2022 Urea nitrogen [Mass/Vol] 13 mg/dL 7-18 [facility] Work Phone: Thin prep Papanicolaou smear with manual screeningon 05-01-2022 Thin prep Papanicolaou smear with manual screening 4 5-15 [facility] Work Phone: Basophil percentageon 2021 Chloride [Moles/Vol] 110 mmol/L 98-107 [facility] Work Phone: Glucose [Mass/Vol] 91 mg/dL 74-106 [facility] Work Phone: Potassium [Moles/Vol] 4.1 mmol/L 3.5-5.1 [facility] Work Phone: Sodium [Moles/Vol] 140 mmol/L 136-145 [facility] Work Phone: WBC (Bld) [#/Vol] 6.3 10*3/uL 4.4-11.0 [facility] Work Phone: Blood erythrocytes count (nu mber/volume)on 04-17-2022 RBC (Bld) [#/Vol] 4.06 10*6/uL 4.2-5.4 [facility] Work Phone: Blood hemoglobin measurement (mass/volume)on 04-17-2022 Hemoglobin (Bld) [Mass/Vol] 11.6 g/dL 12.0-15.0 [facility] Work Phone: Blood platelet mean volumeon 04-17-2022 Platelet mean volume (Bld) [Entitic vol] 9.8 fL 6.2-12.0 [facility] Work Phone: Determination of erythrocyte mean corpuscular volume (MCV)on 04-17-2022 MCV (RBC) [Entitic vol] 89.2 fL 81-99 [facility] Work Phone: Hematocrit Auto (Bld) [Volum e fraction]on 04-17-2022 Hematocrit (Bld) [Volume fraction] 36.2 % 37-47 [facility] Work Phone: Laboratory - Chemistry and C hemistry - challengeon 04-17-2022 CO2 [Moles/Vol] 25.0 mmol/L 21.0-32.0 [facility] Work Phone: Urea nitrogen/Creatinine [Mass ratio] 24.4 mg/mg 10-20 [facility] Work Phone: Laboratory - Hematology and Cell countson 04-17-2022 Erythrocyte distribution width (RBC) [Entitic vol] 49.6 fL 35.1-43.9 [facility] Work Phone: Erythrocyte distribution width (RBC) [Ratio] 15.0 % 11.6-14.6 [facility] Work Phone: MCH (RBC) [Entitic mass] 28.6 pg 27.0-32.0 [facility] Work Phone: MCHC Auto (RBC) [Mass/Vol]on 04-17-2022 MCHC (RBC) [Mass/Vol] 32.0 g/dL 32-36 [facility] Work Phone: No Panel Informationon 04-17 Estimated GFR (MDRD) Amer 86 mL/min >60 [facility] Work Phone: Comment on above: GFR Calc Estimated GFR (MDRD) Non-Af Amer 71 mL/min >60 [facility] Work Phone: Comment on above: Non- GFR Calc Platelets bldon 04-17-2022 Platelets (Bld) [#/Vol] 246 10*3/uL 150-450 [facility] Work Phone: Serum or plasma calcium milagros urement (mass/volume)on 04-17-2022 Calcium [Mass/Vol] 8.7 mg/dL 8.5-10.1 [facility] Work Phone: Serum or plasma creatinine m easurement (mass/volume)on 04-17-2022 Creatinine [Mass/Vol] 0.82 mg/dL 0.55-1.02 [facility] Work Phone: Comment on above: The validity of the calculated GFR & GFRAA in patients over 70 years has not been determined. Clinical correlation is essential. Serum or plasma urea nitroge n measurement (mass/volume)on 04-17-2022 Urea nitrogen [Mass/Vol] 20 mg/dL 7-18 [facility] Work Phone: Thin prep Papanicolaou smear with manual screeningon 04-17-2022 Thin prep Papanicolaou smear with manual screening 5 5-15 [facility] Work Phone: Basophil percentageon 2021 Chloride [Moles/Vol] 111 mmol/L 98-[address] [facility] [address] [facility] Work Phone: Glucose [Mass/Vol] 90 mg/dL 74-106 [facility] Work Phone: Potassium [Moles/Vol] 4.2 mmol/L 3.5-5.[address] [facility] Work Phone: Sodium [Moles/Vol] 141 mmol/L 136-145 [facility] Work Phone: WBC (Bld) [#/Vol] 5.9 10*3/uL 4.4-11.0 [facility] Work Phone: Blood erythrocytes count (nu mber/volume)on 04-03-2022 RBC (Bld) [#/Vol] 4.13 10*6/uL 4.2-5.4 [facility] Work Phone: Blood hemoglobin measurement (mass/volume)on 04-03-2022 Hemoglobin (Bld) [Mass/Vol] 11.6 g/dL 12.0-15.0 [facility] Work Phone: Blood platelet mean volumeon 04-03-2022 Platelet mean volume (Bld) [Entitic vol] 10.1 fL 6.2-12.0 [facility] Work Phone: Determination of erythrocyte mean corpuscular volume (MCV)on 04-03-2022 MCV (RBC) [Entitic vol] 89.6 fL 81-99 [facility] Work Phone: Hematocrit Auto (Bld) [Volum e fraction]on 04-03-2022 Hematocrit (Bld) [Volume fraction] 37.0 % 37-47 [facility] Work Phone: Laboratory - Chemistry and C hemistry - challengeon 04-03-2022 CO2 [Moles/Vol] 26.0 mmol/L 21.0-32.0 [facility] Work Phone: Urea nitrogen/Creatinine [Mass ratio] 21.2 mg/mg 10-20 [facility] Work Phone: Laboratory - Hematology and Cell countson 04-03-2022 Erythrocyte distribution width (RBC) [Entitic vol] 50.1 fL 35.1-43.9 [facility] Work Phone: Erythrocyte distribution width (RBC) [Ratio] 15.1 % 11.6-14.6 [facility] Work Phone: MCH (RBC) [Entitic mass] 28.1 pg 27.0-32.0 [facility] Work Phone: MCHC Auto (RBC) [Mass/Vol]on 04-03-2022 MCHC (RBC) [Mass/Vol] 31.4 g/dL 32-36 [facility] Work Phone: No Panel Informationon 04-03 Estimated GFR (MDRD) Amer 94 mL/min >60 [facility] Work Phone: Comment on above: GFR Calc Estimated GFR (MDRD) Non-Af Amer 78 mL/min >60 [facility] Work Phone: Comment on above: Non- GFR Calc Platelets bldon 04-03-2022 Platelets (Bld) [#/Vol] 254 10*3/uL 150-450 [facility] Work Phone: Serum or plasma calcium milagros urement (mass/volume)on 04-03-2022 Calcium [Mass/Vol] 9.0 mg/dL 8.5-10.1 [facility] Work Phone: Serum or plasma creatinine m easurement (mass/volume)on 04-03-2022 Creatinine [Mass/Vol] 0.75 mg/dL 0.55-1.02 [facility] Work Phone: Comment on above: The validity of the calculated GFR & GFRAA in patients over 70 years has not been determined. Clinical correlation is essential. Serum or plasma urea nitroge n measurement (mass/volume)on 04-03-2022 Urea nitrogen [Mass/Vol] 16 mg/dL 7-18 [facility] Work Phone: Thin prep Papanicolaou smear with manual screeningon 04-03-2022 Thin prep Papanicolaou smear with manual screening 4 5-15 [facility] Work Phone: Basophil percentageon 2021 Chloride [Moles/Vol] 107 mmol/L 98-107 [facility] Work Phone: Glucose [Mass/Vol] 90 mg/dL 74-106 [facility] Work Phone: Potassium [Moles/Vol] 4.2 mmol/L 3.5-5.1 [facility]: Sodium [Moles/Vol] 142 mmol/L 136-145 [facility] Work Phone: WBC (Bld) [#/Vol] 6.1 10*3/uL 4.4-11.0 [facility] Work Phone: Blood erythrocytes count (nu mber/volume)on 03-20-2022 RBC (Bld) [#/Vol] 4.07 10*6/uL 4.2-5.4 [facility]: Blood hemoglobin measurement (mass/volume)on 03-20-2022 Hemoglobin (Bld) [Mass/Vol] 11.5 g/dL 12.0-15.0 [facility] Work Phone: Blood platelet mean volumeon 03-20-2022 Platelet mean volume (Bld) [Entitic vol] 9.8 fL 6.2-12.0 [facility] Work Phone: Determination of erythrocyte mean corpuscular volume (MCV)on 03-20-2022 MCV (RBC) [Entitic vol] 88.7 fL 81-99 [facility] Work Phone: Hematocrit Auto (Bld) [Volum e fraction]on 03-20-2022 Hematocrit (Bld) [Volume fraction] 36.1 % 37-47 [facility] Work Phone: Laboratory - Chemistry and C hemistry - challengeon 03-20-2022 CO2 [Moles/Vol] 27.0 mmol/L 21.0-32.0 [facility] Work Phone: Urea nitrogen/Creatinine [Mass ratio] 19.5 mg/mg 10-20 [facility] Work Phone: Laboratory - Hematology and Cell countson 03-20-2022 Erythrocyte distribution width (RBC) [Entitic vol] 50.1 fL 35.1-43.9 [facility] Work Phone: Erythrocyte distribution width (RBC) [Ratio] 15.3 % 11.6-14.6 [facility] Work Phone: MCH (RBC) [Entitic mass] 28.3 pg 27.0-32.0 [facility] Work Phone: MCHC Auto (RBC) [Mass/Vol]on 03-20-2022 MCHC (RBC) [Mass/Vol] 31.9 g/dL 32-36 [facility] Work Phone: No Panel Informationon 03-20 Estimated GFR (MDRD) Amer 92 mL/min >60 [facility] Work Phone: Comment on above: GFR Calc Estimated GFR (MDRD) Non-Af Amer 76 mL/min >60 [facility] Work Phone: Comment on above: Non- GFR Calc Platelets bldon 03-20-2022 Platelets (Bld) [#/Vol] 282 10*3/uL 150-450 [facility] Work Phone: Serum or plasma calcium milagros urement (mass/volume)on 03-20-2022 Calcium [Mass/Vol] 8.8 mg/dL 8.5-10.1 [facility] Work Phone: Serum or plasma creatinine m easurement (mass/volume)on 03-20-2022 Creatinine [Mass/Vol] 0.77 mg/dL 0.55-1.02 [facility] Work Phone: Comment on above: The validity of the calculated GFR & GFRAA in patients over 70 years has not been determined. Clinical correlation is essential. Serum or plasma urea nitroge n measurement (mass/volume)on 03-20-2022 Urea nitrogen [Mass/Vol] 15 mg/dL 7-18 [facility] Work Phone: Thin prep Papanicolaou smear with manual screeningon 03-20-2022 Thin prep Papanicolaou smear with manual screening 8 5-15 [facility] Work Phone: Basophil percentageon 2021 Chloride [Moles/Vol] 110 mmol/L 98-107 [facility]: Glucose [Mass/Vol] 89 mg/dL 74-106 [facility] Work Phone: Potassium [Moles/Vol] 4.1 mmol/L 3.5-5.1 [facility] Work Phone: Sodium [Moles/Vol] 141 mmol/L 136-145 [facility] Work Phone: WBC (Bld) [#/Vol] 6.7 10*3/uL 4.4-11.0 [facility] Work Phone: Blood erythrocytes count (nu mber/volume)on 03-06-2022 RBC (Bld) [#/Vol] 4.08 10*6/uL 4.2-5.4 [facility] Work Phone: Blood hemoglobin measurement (mass/volume)on 03-06-2022 Hemoglobin (Bld) [Mass/Vol] 11.5 g/dL 12.0-15.0 [facility] Work Phone: Blood platelet mean volumeon 03-06-2022 Platelet mean volume (Bld) [Entitic vol] 10.2 fL 6.2-12.0 [facility] Work Phone: Determination of erythrocyte mean corpuscular volume (MCV)on 03-06-2022 MCV (RBC) [Entitic vol] 89.0 fL 81-99 [facility] Work Phone: Hematocrit Auto (Bld) [Volum e fraction]on 03-06-2022 Hematocrit (Bld) [Volume fraction] 36.3 % 37-47 [facility] Work Phone: Laboratory - Chemistry and C hemistry - challengeon 03-06-2022 CO2 [Moles/Vol] 26.0 mmol/L 21.0-32.0 [facility] Work Phone: Urea nitrogen/Creatinine [Mass ratio] 23.0 mg/mg 10-20 [facility] Work Phone: Laboratory - Hematology and Cell countson 03-06-2022 Erythrocyte distribution width (RBC) [Entitic vol] 49.8 fL 35.1-43.9 [facility] Work Phone: Erythrocyte distribution width (RBC) [Ratio] 15.3 % 11.6-14.6 [facility] Work Phone: MCH (RBC) [Entitic mass] 28.2 pg 27.0-32.0 [facility] Work Phone: MCHC Auto (RBC) [Mass/Vol]on 03-06-2022 MCHC (RBC) [Mass/Vol] 31.7 g/dL 32-36 [facility] Work Phone: No Panel Informationon 03-06 Estimated GFR (MDRD) Amer 91 mL/min >60 [facility] Work Phone: Comment on above: GFR Calc Estimated GFR (MDRD) Non-Af Amer 75 mL/min >60 [facility] Work Phone: Comment on above: Non- GFR Calc Platelets bldon 03-06-2022 Platelets (Bld) [#/Vol] 248 10*3/uL 150-450 [facility] Work Phone: Serum or plasma calcium milagros urement (mass/volume)on 03-06-2022 Calcium [Mass/Vol] 8.8 mg/dL 8.5-10.1 [facility] Work Phone: Serum or plasma creatinine m easurement (mass/volume)on 03-06-2022 Creatinine [Mass/Vol] 0.78 mg/dL 0.55-1.02 [facility] Work Phone: Comment on above: The validity of the calculated GFR & GFRAA in patients over 70 years has not been determined. Clinical correlation is essential. Serum or plasma urea nitroge n measurement (mass/volume)on 03-06-2022 Urea nitrogen [Mass/Vol] 18 mg/dL 7-18 [facility] Work Phone: Thin prep Papanicolaou smear with manual screeningon 03-06-2022 Thin prep Papanicolaou smear with manual screening 5 5-15 [facility] Work Phone: Basophil percentageon 2021 Chloride [Moles/Vol] 111 mmol/L 98-107 [facility] Work Phone: Glucose [Mass/Vol] 85 mg/dL 74-106 [facility] Work Phone: Potassium [Moles/Vol] 4.1 mmol/L 3.5-5.1 [facility] Work Phone: Sodium [Moles/Vol] 143 mmol/L 136-145 [facility] Work Phone: WBC (Bld) [#/Vol] 7.0 10*3/uL 4.4-11.0 [facility] Work Phone: Blood erythrocytes count (nu mber/volume)on 02-20-2022 RBC (Bld) [#/Vol] 4.62 10*6/uL 4.2-5.4 [facility] Work Phone: Blood hemoglobin measurement (mass/volume)on 02-20-2022 Hemoglobin (Bld) [Mass/Vol] 12.8 g/dL 12.0-15.0 [facility] Work Phone: Blood platelet mean volumeon 02-20-2022 Platelet mean volume (Bld) [Entitic vol] 10.0 fL 6.2-12.0 [facility] Work Phone: Determination of erythrocyte mean corpuscular volume (MCV)on 02-20-2022 MCV (RBC) [Entitic vol] 88.5 fL 81-99 [facility] Work Phone: Hematocrit Auto (Bld) [Volum e fraction]on 02-20-2022 Hematocrit (Bld) [Volume fraction] 40.9 % 37-47 [facility] Work Phone: Laboratory - Chemistry and C hemistry - challengeon 02-20-2022 CO2 [Moles/Vol] 26.0 mmol/L 21.0-32.0 [facility] Work Phone: Urea nitrogen/Creatinine [Mass ratio] 23.3 mg/mg 10-20 [facility] Work Phone: Laboratory - Hematology and Cell countson 02-20-2022 Erythrocyte distribution width (RBC) [Entitic vol] 49.1 fL 35.1-43.9 [facility] Work Phone: Erythrocyte distribution width (RBC) [Ratio] 15.1 % 11.6-14.6 [facility] Work Phone: MCH (RBC) [Entitic mass] 27.7 pg 27.0-32.0 [facility] Work Phone: MCHC Auto (RBC) [Mass/Vol]on 02-20-2022 MCHC (RBC) [Mass/Vol] 31.3 g/dL 32-36 [facility] Work Phone: No Panel Informationon 02-20 Estimated GFR (MDRD) Amer 98 mL/min >60 [facility] Work Phone: Comment on above: GFR Calc Estimated GFR (MDRD) Non-Af Amer 81 mL/min >60 [facility] Work Phone: Comment on above: Non- GFR Calc Platelets bldon 02-20-2022 Platelets (Bld) [#/Vol] 275 10*3/uL 150-450 [facility] Work Phone: Serum or plasma calcium milagros urement (mass/volume)on 02-20-2022 Calcium [Mass/Vol] 9.0 mg/dL 8.5-10.1 [facility] Work Phone: Serum or plasma creatinine m easurement (mass/volume)on 02-20-2022 Creatinine [Mass/Vol] 0.73 mg/dL 0.55-1.02 [facility] Work Phone: Comment on above: The validity of the calculated GFR & GFRAA in patients over 70 years has not been determined. Clinical correlation is essential. Serum or plasma urea nitroge n measurement (mass/volume)on 02-20-2022 Urea nitrogen [Mass/Vol] 17 mg/dL 7-18 [facility] Work Phone: Thin prep Papanicolaou smear with manual screeningon 02-20-2022 Thin prep Papanicolaou smear with manual screening 6 5-15 [facility] Work Phone: Basophil percentageon 2021 Chloride [Moles/Vol] 107 mmol/L 98-107 [facility] Work Phone: Glucose [Mass/Vol] 84 mg/dL 74-106 [facility] Work Phone: Potassium [Moles/Vol] 4.1 mmol/L 3.5-5.1 [facility] Work Phone: Sodium [Moles/Vol] 138 mmol/L 136-145 [facility] Work Phone: WBC (Bld) [#/Vol] 4.3 10*3/uL 4.4-11.0 [facility] Work Phone: Blood erythrocytes count (nu mber/volume)on 02-07-2022 RBC (Bld) [#/Vol] 4.53 10*6/uL 4.2-5.4 [facility] Work Phone: Blood hemoglobin measurement (mass/volume)on 02-07-2022 Hemoglobin (Bld) [Mass/Vol] 12.6 g/dL 12.0-15.0 [facility] Work Phone: Blood platelet mean volumeon 02-07-2022 Platelet mean volume (Bld) [Entitic vol] 10.3 fL 6.2-12.0 [facility] Work Phone: Determination of erythrocyte mean corpuscular volume (MCV)on 02-07-2022 MCV (RBC) [Entitic vol] 89.0 fL 81-99 [facility] Work Phone: Hematocrit Auto (Bld) [Volum e fraction]on 02-07-2022 Hematocrit (Bld) [Volume fraction] 40.3 % 37-47 [facility] Work Phone: Laboratory - Chemistry and C hemistry - challengeon 02-07-2022 CO2 [Moles/Vol] 24.0 mmol/L 21.0-32.0 [facility] Work Phone: Urea nitrogen/Creatinine [Mass ratio] 21.4 mg/mg 10-20 [facility] Work Phone: Laboratory - Hematology and Cell countson 02-07-2022 Erythrocyte distribution width (RBC) [Entitic vol] 53.2 fL 35.1-43.9 [facility] Work Phone: Erythrocyte distribution width (RBC) [Ratio] 16.2 % 11.6-14.6 [facility] Work Phone: MCH (RBC) [Entitic mass] 27.8 pg 27.0-32.0 [facility] Work Phone: MCHC Auto (RBC) [Mass/Vol]on 02-07-2022 MCHC (RBC) [Mass/Vol] 31.3 g/dL 32-36 [facility] Work Phone: No Panel Informationon 02-07 Estimated GFR (MDRD) Amer 89 mL/min >60 [facility] Work Phone: Comment on above: GFR Calc Estimated GFR (MDRD) Non-Af Amer 74 mL/min >60 [facility] Work Phone: Comment on above: Non- GFR Calc Platelets bldon 02-07-2022 Platelets (Bld) [#/Vol] 226 10*3/uL 150-450 [facility] Work Phone: Serum or plasma calcium milagros urement (mass/volume)on 02-07-2022 Calcium [Mass/Vol] 8.7 mg/dL 8.5-10.1 [facility] Work Phone: Serum or plasma creatinine m easurement (mass/volume)on 02-07-2022 Creatinine [Mass/Vol] 0.79 mg/dL 0.55-1.02 [facility] Work Phone: Comment on above: The validity of the calculated GFR & GFRAA in patients over 70 years has not been determined. Clinical correlation is essential. Serum or plasma urea nitroge n measurement (mass/volume)on 02-07-2022 Urea nitrogen [Mass/Vol] 17 mg/dL 7-18 [facility] Work Phone: Thin prep Papanicolaou smear with manual screeningon 02-07-2022 Thin prep Papanicolaou smear with manual screening 7 5-15 [facility] Work Phone: Basophil percentageon 2021 Chloride [Moles/Vol] 111 mmol/L 98-107 [facility] Work Phone: Glucose [Mass/Vol] 85 mg/dL 74-106 [facility] Work Phone: Potassium [Moles/Vol] 4.2 mmol/L 3.5-5.1 [facility] Work Phone: Sodium [Moles/Vol] 141 mmol/L 136-145 [facility] Work Phone: WBC (Bld) [#/Vol] 5.2 10*3/uL 4.4-11.0 [facility] Work Phone: Blood erythrocytes count (nu mber/volume)on 01-30-2022 RBC (Bld) [#/Vol] 4.34 10*6/uL 4.2-5.4 [facility] Work Phone: Blood hemoglobin measurement (mass/volume)on 01-30-2022 Hemoglobin (Bld) [Mass/Vol] 12.4 g/dL 12.0-15.0 [facility] Work Phone: Blood platelet mean volumeon 01-30-2022 Platelet mean volume (Bld) [Entitic vol] 9.9 fL 6.2-12.0 [facility] Work Phone: Determination of erythrocyte mean corpuscular volume (MCV)on 01-30-2022 MCV (RBC) [Entitic vol] 89.6 fL 81-99 [facility] Work Phone: Hematocrit Auto (Bld) [Volum e fraction]on 01-30-2022 Hematocrit (Bld) [Volume fraction] 38.9 % 37-47 [facility] Work Phone: Laboratory - Chemistry and C hemistry - challengeon 01-30-2022 CO2 [Moles/Vol] 26.0 mmol/L 21.0-32.0 [facility] Work Phone: Urea nitrogen/Creatinine [Mass ratio] 18.1 mg/mg 10-20 [facility] Work Phone: Laboratory - Hematology and Cell countson 01-30-2022 Erythrocyte distribution width (RBC) [Entitic vol] 51.9 fL 35.1-43.9 [facility] Work Phone: Erythrocyte distribution width (RBC) [Ratio] 15.7 % 11.6-14.6 [facility] Work Phone: MCH (RBC) [Entitic mass] 28.6 pg 27.0-32.0 [facility] Work Phone: MCHC Auto (RBC) [Mass/Vol]on 01-30-2022 MCHC (RBC) [Mass/Vol] 31.9 g/dL 32-36 [facility] Work [facility]: No Panel Informationon 01-30 Estimated GFR (MDRD) Amer 92 mL/min >60 [facility] Work Phone: Comment on above: GFR Calc Estimated GFR (MDRD) Non-Af Amer 76 mL/min >60 [facility] Work Phone: Comment on above: Non- GFR Calc Platelets bldon 01-30-2022 Platelets (Bld) [#/Vol] 266 10*3/uL 150-450 [facility] Work Phone: Serum or plasma calcium milagros urement (mass/volume)on 01-30-2022 Calcium [Mass/Vol] 8.6 mg/dL 8.5-10.1 [facility] Work Phone: Serum or plasma creatinine m easurement (mass/volume)on 01-30-2022 Creatinine [Mass/Vol] 0.77 mg/dL 0.55-1.02 [facility] Work Phone: Comment on above: The validity of the calculated GFR & GFRAA in patients over 70 years has not been determined. Clinical correlation is essential. Serum or plasma urea nitroge n measurement (mass/volume)on 01-30-2022 Urea nitrogen [Mass/Vol] 14 mg/dL 7-18 [facility] Work Phone: Thin prep Papanicolaou smear with manual screeningon 01-30-2022 Thin prep Papanicolaou smear with manual screening 4 5-15 [facility] Work Phone: Vital Signs Date Time Vital Sign Value Performing Clinician Faci lity 12-31-2022 21:32-0400 Diastolic blood pressure 63 mm[Hg] Dr. Jaki Anderson Work Phone: [facility] 12-31-2022 21:32-0400 Heart rate 82 /min Dr. Jaki Anderson Work Phone: [facility] 12-31-2022 21:32-0400 Respiratory rate 16 /min Dr. Jaki Anderson Work Phone: [facility] 12-31-2022 21:32-0400 SaO2% (BldA) [Mass fraction] 95 % Dr. Jaki Anderson Work Phone: [facility] 12-31-2022 21:32-0400 Systolic blood pressure 139 mm[Hg] Dr. Jaki Anderson Work Phone: [facility] 12-31-2022 16:12-0400 Body height 175.[address] Jaki Anderson Work Phone: [facility] 12-31-2022 16:12-0400 Body mass index (BMI) [Ratio] 28.3 kg/m2 Dr. Jaki Anderson Work Phone: [facility] 12-31-2022 16:12-0400 Body temperature 97.1 [degF] Dr. Jaki Anderson Work Phone: [facility] 12-31-2022 16:12-0400 Body weight 87.[address] Jaki Anderson Work Phone: [facility] Encounters Encounter Date Encounter Type Care Provider Facility Start: 02-24-2025 End: 02-24-[address] Jaki Anderson MD Work Phone: [facility] Start: 02-24-2025 End: 02-24-2025 Patient encounter procedure Krissy RICHARDSON [facility] Work Phone: Start: 01-27-2025 End: 01-27-[address] Jaki Anderson MD Work Phone: [facility] Start: 01-27-2025 End: 01-27-[address] Jose Raul Pulliam MD -[facility] Work Phone: Start: 12-12-2024 End: 12-12-[address] Jaki Anderson MD Work Phone: [facility] Work Phone: Start: 12-12-2024 End: 12-12-2024 Patient encounter procedure Krissy HAMILTON -[facility] Work Phone: Start: 11-11-2024 End: 11-11-[address] Jose Raul Pulliam MD -[facility] Work Phone: Start: 11-11-2024 End: 11-11-[address] Jaki Anderson MD Work Phone: [facility] Work Phone: Start: 11-11-2024 End: 11-11-2024 Departed Referred Jose Raul Smith Start: 11-11-2024 End: 11-11-2024 ambulatory Efewmarisa MCDERMOTT Facility:[facility] Start: 10-13-2024 ambulatory Efewmarisa Pulliam OLS Fa cility:[facility] Start: 10-13-2024 Registered Referred Jose Raul Smith Start: 09-16-2024 End: 09-16-2024 ambulatory Efewmarisa Pulliam Facility:[facility] Start: 09-16-2024 End: 09-16-[address] Jose Raul Pulliam MD -[facility] Work Phone: Start: 09-16-2024 ambulatory Efdiandramarisa Pulliam OLS Fa cility:[facility] Start: 09-16-2024 Registered Referred Jose Raul Smith Start: 08-19-2024 End: 08-19-2024 Departed Referred Jose Raul Smith Start: 08-19-2024 End: 08-19-2024 ambulatory Efewmarisa Hammere SHARRON Facility:[facility] Start: 07-22-2024 End: 07-22-2024 ambulatory Efewongbe Heraclio Facility:[facility] Start: 07-22-2024 End: 07-22-2024 ambulatory Jaki Anderson Facility:[facility] Start: 06-26-2024 End: 06-26-2024 ambulatory Krissy Alex NP Facility:[facility] Start: 06-24-2024 End: 06-24-2024 ambulatory Efewongbe Jaqueline OLS Facility:[facility] Start: 05-27-2024 ambulatory Efewongbe Olejocelynjessenia MCDERMOTT Fa cility:[facility] Start: 05-13-2024 End: 05-13-2024 ambulatory Jaki Anderson Facility:[facility] Start: 04-29-2024 ambulatory Jose Raul MCDERMOTT Fa cility:[facility] Start: 04-21-2024 End: 04-21-2024 ambulatory Angelica Edge Facility:[facility] Start: 04-01-2024 End: 04-01-2024 ambulatory Jose Raul MCDERMOTT Facility:[facility] Start: 12-11-2023 End: 12-11-[address] Jaki Anderson Work Phone: [facility] Work Phone: Start: 12-11-2023 End: 12-11-[address] Jaki Anderson Work Phone: [facility] Start: 11-27-2023 End: 11-27-[address] Jaki Anderson Work Phone: [facility] Work Phone: Start: 11-27-2023 End: 11-27-[address] Jaki Anderson Work Phone: [facility] Start: 11-27-[address] Jaki Anderson Work Phone: [facility] Start: 11-20-2023 End: 11-20-[address] Jaki Anderson Work Phone: [facility] Work Phone: Start: 11-13-2023 End: 11-13-[address] Jaki Anderson Work Phone: [facility] Work Phone: Start: 11-13-2023 End: 11-13-[address] Jaki Anderson Work Phone: [facility] Start: 11-13-[address] Jaki Anderson Work Phone: [facility] Start: 10-30-2023 End: 10-30-[address] Jaki Anderson Work Phone: [facility] Work Phone: Start: 10-30-2023 End: 10-30-[address] Jaki Anderson Work Phone: [facility] Start: 10-30-[address] Jaki Anderson Work Phone: [facility] Start: 10-16-2023 End: 10-16-[address] Jaki Anderson Work Phone: [facility] Work Phone: Start: 10-16-2023 End: 10-16-[address] Jaki Anderson Work Phone: [facility] Start: 10-16-[address] Jaki Anderson Work Phone: [facility] Start: 10-11-2023 End: 10-11-[address] Jaki Anderson Work Phone: [facility] Work Phone: Start: 10-02-2023 End: 10-02-[address] Jaki Anderson Work Phone: [facility] Work Phone: Start: 10-02-2023 End: 10-02-[address] Jaki Anderson Work Phone: [facility] Start: 10-02-[address] Jaki Anderson Work Phone: [facility] Start: 09-18-2023 End: 09-18-[address] Jaki Anderson Work Phone: [facility] Work Phone: Start: 09-18-2023 End: 09-18-[address] Jaki Anderson Work Phone: [facility] Start: 09-18-[address] Jaki Anderson Work Phone: [facility] Start: 09-11-2023 End: 09-11-[address] Jaki Anderson Work Phone: [facility] Work Phone: Start: 09-04-2023 End: 09-04-[address] Jaki Anderson Work Phone: [facility] Work Phone: Start: 09-04-2023 End: 09-04-[address] Jaki Anderson Work Phone: [facility] Start: 08-23-2023 End: 08-23-[address] Jaki Anderson Work Phone: [facility] Work Phone: Start: 08-21-2023 End: 08-21-[address] Jaki Anderson Work Phone: [facility] Work Phone: Start: 08-21-2023 End: 08-21-[address] Jaki Anderson Work Phone: [facility] Start: 08-21-[address] Jaki Anderson Work Phone: [facility] Start: 08-07-2023 End: 08-07-[address] Jaki Anderson Work Phone: [facility] Work Phone: Start: 08-07-2023 End: 08-07-[address] Jaki Anderson Work Phone: [facility] Start: 07-23-2023 End: 07-23-[address] Jaki Anderson Work Phone: [facility] Work Phone: Start: 07-23-2023 End: 07-23-[address] Jaki Anderson Work Phone: [facility] Start: 07-17-2023 End: 07-17-[address] Jaki Anderson Work Phone: [facility] Work Phone: Start: 07-09-2023 End: 07-09-[address] Jaki Anderson Work Phone: [facility] Work Phone: Start: 07-09-2023 End: 07-09-[address] Jaki Anderson Work Phone: [facility] Start: 06-25-2023 End: 06-25-[address] Jaki Anderson Work Phone: [facility] Work Phone: Start: 06-25-2023 End: 06-25-[address] Jaki Anderson Work Phone: [facility] Start: 06-11-2023 End: 06-11-[address] Jaki Anderson Work Phone: [facility] Start: 05-28-2023 End: 05-28-[address] Jaki Anderson Work Phone: [facility] Start: 05-28-[address] Jaki Anderson Work Phone: [facility] Start: 05-15-2023 End: 05-15-[address] Jaki Anderson Work Phone: [facility] Work Phone: Start: 05-09-2023 End: 05-09-[address] Jaki Anderosn Work Phone: [facility] Work Phone: Start: 04-30-2023 End: 04-30-[address] Jaki Anderson Work Phone: [facility] Work Phone: Start: 04-30-2023 End: 04-30-[address] Jaki Anderson Work Phone: [facility] Start: 04-30-[address] Jaki Anderson Work Phone: [facility] Start: 04-16-2023 End: 04-16-[address] Jaki Anderson Work Phone: [facility] Work Phone: Start: 04-16-2023 End: 04-16-[address] Jaki Anderson Work Phone: [facility] Start: 04-16-[address] Jaki Anderson Work Phone: [facility] Start: 04-02-2023 End: 04-02-[address] Jaki Anderson Work Phone: [facility] Work Phone: Start: 04-02-2023 End: 04-02-[address] Jaki Anderson Work Phone: [facility] Start: 04-02-[address] Jaki Anderson Work Phone: [facility] Start: 03-20-2023 End: 03-20-[address] Jaki Anderson Work Phone: [facility] Work Phone: Start: 03-19-2023 End: 03-19-[address] Jaki Anderson Work Phone: [facility] Work Phone: Start: 03-19-2023 End: 03-19-[address] Jaki Anderson Work Phone: [facility] Start: 03-19-[address] Jaki Anderson Work Phone: [facility] Start: 03-05-2023 End: 03-05-[address] Jaki Anderson Work Phone: [facility] Work Phone: Start: 03-05-2023 End: 03-05-[address] Jaki Anderson Work Phone: [facility] Start: 03-05-[address] Jaki Anderson Work Phone: [facility] Start: 02-20-2023 End: 02-20-[address] Jaki Anderson Work Phone: [facility] Work Phone: Start: 02-20-2023 End: 02-20-[address] Jaki Anderson Work Phone: [facility] Start: 02-20-[address] Jaki Anderson Work Phone: [facility] Start: 02-06-2023 End: 02-06-[address] Jaki Anderson Work Phone: [facility] Work Phone: Start: 02-06-2023 End: 02-06-[address] Jaki Anderson Work Phone: [facility] Start: 02-06-[address] Jaki Anderson Work Phone: [facility] Start: 01-29-2023 End: 01-29-[address] Jaki Anderson Work Phone: [facility] Work Phone: Start: 01-29-2023 End: 01-29-[address] Jaki Anderson Work Phone: [facility] Start: 01-22-2023 End: 01-22-[address] Jaki Anderson Work Phone: [facility] Start: 01-16-2023 End: 01-16-[address] Jaki Anderson Work Phone: [facility] Work Phone: Start: 01-13-2023 End: 01-13-[address] Jaki Anderson Work Phone: [facility] Work Phone: Start: 01-08-2023 End: 01-08-[address] Jaki Anderson Work Phone: [facility] Work Phone: Start: 01-08-2023 End: 01-08-[address] Jaki Anderson Work Phone: [facility] Start: 01-01-2023 End: 01-01-[address] Jaki Anderson Work Phone: [facility] Work Phone: Start: 12-31-2022 End: 12-31-2022 Emergency department patient visit Dr. Jaki Anderson Work Phone: [facility] Start: 12-25-2022 End: 12-25-[address] Jaki Anderson Work Phone: [facility] Work Phone: Start: 12-25-2022 End: 12-25-[address] Jaki Anderson Work Phone: [facility] Start: 12-25-[address] Jaki Anderson Work Phone: [facility] Start: 12-11-2022 End: 12-11-[address] Jaki Anderson Work Phone: [facility] Start: 12-11-[address] Jaki Anderson Work Phone: [facility] Start: 11-28-2022 End: 11-28-[address] Jaki Anderson Work Phone: [facility] Start: 11-27-2022 End: 11-27-[address] Jaki Anderson Work Phone: [facility] Work Phone: Start: 11-27-2022 End: 11-27-[address] Jaki Anderson Work Phone: [facility] Start: 11-27-[address] Jaki Anderson Work Phone: [facility] Start: 11-13-2022 End: 11-13-[address] Jaki Anderson Work Phone: [facility] Work Phone: Start: 11-13-2022 End: 11-13-[address] Jaki Anderson Work Phone: [facility] Start: 10-30-2022 End: 10-30-[address] Jaki Anderson Work Phone: [facility] Start: 10-30-2022 End: 10-30-[address] Jaki Anderson Work Phone: [facility] Start: 10-30-[address] Jaki Anderson Work Phone: [facility] Start: 10-16-2022 End: 10-16-[address] Jaki Anderson Work Phone: [facility] Start: 10-16-2022 End: 10-16-[address] Jaki Anderson Work Phone: [facility] Work Phone: Start: 10-16-2022 End: 10-16-[address] Jaki Anderson Work Phone: [facility] Start: 10-16-[address] Jaki Anderson Work Phone: [facility] Start: 10-02-2022 End: 10-02-[address] Jaki Anderson Work Phone: [facility] Start: 09-25-2022 End: 09-25-[address] Jaki Anderson Work Phone: [facility] Start: 09-18-2022 End: 09-18-[address] Jaki Anderson Work Phone: [facility] Work Phone: Start: 09-18-2022 End: 09-18-[address] Jaki Anderson Work Phone: [facility] Start: 09-18-[address] Jaki Anderson Work Phone: [facility] Start: 09-05-2022 End: 09-05-[address] Jaki Anderson Work Phone: [facility] Work Phone: Start: 09-05-2022 End: 09-05-[address] Jaki Anderson Work Phone: [facility] Start: 09-05-[address] Jaki Anderson Work Phone: [facility] Start: 08-21-2022 End: 08-21-[address] Jaki Anderson Work Phone: [facility] Start: 08-21-[address] Jaki Anderson Work Phone: [facility] Start: 08-07-2022 End: 08-07-[address] Jaki Anderson Work Phone: [facility] Work Phone: Start: 08-07-2022 End: 08-07-[address] Jaki Anderson Work Phone: [facility] Start: 08-07-[address] Jaki Anderson Work Phone: [facility] Start: 07-24-2022 End: 07-24-[address] Jaki Anderson Work Phone: [facility] Work Phone: Start: 07-24-2022 End: 07-24-[address] Jaki Anderson Work Phone: [facility] Start: 07-24-[address] Jaki Anderson Work Phone: [facility] Start: 07-18-2022 End: 07-18-[address] Jaki Anderson Work Phone: [facility] Start: 07-10-2022 End: 07-10-[address] Jaki Anderson Work Phone: [facility] Work Phone: Start: 07-10-2022 End: 07-10-[address] Jaki Anderson Work Phone: [facility] Start: 07-10-[address] Jaki Anderson Work Phone: [facility] Start: 06-26-2022 End: 06-26-[address] Jaki Anderson Work Phone: [facility] Work Phone: Start: 06-26-2022 End: 06-26-[address] Jaki Anderson Work Phone: [facility] Start: 06-26-[address] Jaki Anderson Work Phone: [facility] Start: 06-15-2022 End: 06-15-[address] Jaki Anderson Work Phone: [facility] Start: 06-12-2022 End: 06-12-[address] Jaki Anderson Work Phone: [facility] Work Phone: Start: 06-12-2022 End: 06-12-[address] Jaki Anderson Work Phone: [facility] Start: 05-29-2022 End: 05-29-[address] Jaki Anderson Work Phone: [facility] Work Phone: Start: 05-29-2022 End: 05-29-[address] Jaki Anderson Work Phone: [facility] Start: 05-29-[address] Jaki Anderson Work Phone: [facility] Start: 05-16-2022 End: 05-16-[address] Jaki Anderson Work Phone: [facility] Work Phone: Start: 05-16-2022 End: 05-16-[address] Jaki Anderson Work Phone: [facility] Start: 05-16-[address] Jaki Anderson Work Phone: [facility] Start: 05-01-2022 End: 05-01-[address] Jaki Anderson Work Phone: [facility] Work Phone: Start: 05-01-2022 End: 05-01-[address] Jaki Anderson Work Phone: [facility] Start: 05-01-[address] Jaki Anderson Work Phone: [facility] Start: 04-17-2022 End: 04-17-[address] Jaki Anderson Work Phone: [facility] Work Phone: Start: 04-17-2022 End: 04-17-[address] Jaki Anderson Work Phone: [facility] Start: 04-03-2022 End: 04-03-[address] Jaki Anderson Work Phone: [facility] Start: 04-03-2022 Registered Referred [facility] Start: 03-22-2022 End: 03-22-[address] Jaki Anderson Work Phone: [facility] Start: 03-20-2022 End: 03-20-[address] [facility] Start: 03-06-2022 End: 03-06-[address] [facility] Start: 02-20-2022 End: 02-20-2022 Departed Referred [facility] Start: 02-20-2022 Registered Referred [facility] Start: 02-07-2022 End: 02-07-2022 Departed Referred [facility] Start: 02-07-2022 Registered Referred [facility] Start: 01-30-2022 End: 01-30-2022 Departed Referred [facility] Start: 01-22-2022 End: 01-22-2022 Emergency department patient visit [facility] Procedures Date Procedure Procedure Detail Performing Clinician Start: 11-11-[address] Jaki Tran Work Phone: Start: 11-11-2024 Urnls dip stick/tablet reagent auto microscopy Dr. Jaki Anderson MD Work Phone: Start: 12-31-[address] Jaki Anderson Work Phone: History of tonsillectomy History of tonsi llectomy Urine culture Dr. Jaki Garner hner Work Phone: Plan of Treatment Date Care Activity Detail Author Start: 12-31-2022 [facility] Start: 12-31-2022 Consultation [facility] Bacteria identified in Urine by Culture Urine Culture [facility] Patient Education ED CAREGIVER S UPPORT for DEMENTIA [facility] Work Phone: Patient referral [facility] Work Phone: Immunizations Immunization Date Immunization Notes Care Provider Fa anyi 12-09-2020 Covid (Pfizer) Dr. Jaki maciel Work Phone: [facility] 11-18-2020 Covid (Pfizer) Dr. Jaki maciel Work Phone: [facility] Payers Date Payer Category Payer Unknown [id number] 2024 Medicaid [id number] 2024 Self-pay [id number] Medicare [id number] Unknown [id number] 2.16.8 [id number] Unknown [id number] 2.16.8 [id number] Unknown [id number] 2.16.8 [id number] Unknown [id number] 2.16.8 [id number] Unknown [id number] 2.16.8 [id number] Unknown [id number] 2.16.8 [id number] Unknown [id number] 2.16.8 [id number] Unknown [id number] 2.16.8 [id number] Unknown [id number] 2.16.8 [id number] Unknown [id number] 2.16.8 [id number] Unknown [id number] 2.16.8 [id number] Unknown [id number] 2.16.8 [id number] Unknown [id number] 2.16.8 [id number] Unknown [id number] 2.16.8 [id number] Unknown [id number] 2.16.8 [id number] Unknown [id number] 2.16.8 [id number] Unknown [id number] 2.16.8 [id number] Unknown [id number] 2.16.8 [id number] Social History Date Type Detail Facility Start: 07-06-2020 End: 12-31-2022 Tobacco smoking status NHIS Unknown if ever smoked [facility] Start: 1940 Sex Assigned At Female [facility] Start: 12-31-2022 Tobacco smoking stat [facility] Never smoked tobacco (finding) [facility] Start: 12-10-2024 Sex Female (finding) [facility] Discharge summary 12-31-2022 Note Date & Type Note Facility 12-31-2022 Discharge summary Note Date/Time December 31, 2022 4:26pm [facility] Medical Records Department [address] [place] [address] Emergency Department Summary 12/31/22 MR#: [id number] Acct: [id number] Name: TRICIA GAN Rep #:[id number] : 1940 82 From: Jos Dumont MD PCP: Dr. Jaki Anderson MD Status:REG ER Location: ED HPI HPI - Psych History of Present Illness Chief Complaint: Mental Health Narrative Narrative: 82-year-old female past medical history of dementia presents from care home facility with aggressive behavior that was reported today. Patient states she is unsure as to why she is in the hospital. She denies any pain, no fevers or chills, states that she feels well. It was reported that she threw herself on the ground on Sunday. She is DO NOT RESUSCITATE Comfort Care arrest. She was aggressive previously. She was sent from the facility for possible geriatric psychiatric placement. She had been in a dementia unit previously andwas aggressive towards other residents. She was sent for psychiatric evaluationtoday. [facility] Medical History Abnormal mammogram of right breast Anemia Bone fracture Cataracts, bilateral Dementia Depression Hearing loss History of colon cancer Kidney disease Thyroid disease Home Medications cholecalciferol (vitamin D3) 25 mcg (1,000 unit) capsule 1,000 unit PO DAILY 02/11/19 [History Last Taken Unknown] maxxmlocfrju-Wt-rgid-minerals 27 mg-0.4 mg tablet 1 ea PO DAILY 02/21/19 [History Last Taken Unknown] docusate sodium 100 mg capsule (Dulcolax Stool Softener (docusate)) 100 mg PO DAILY #30 caps 07/06/20 [Rx Last Taken Unknown] donepezil 10 mg tablet 10 mg PO QHS 12/31/22 [History Last Taken Unknown] gabapentin 100 mg capsule 100 mg PO TID 12/31/22 [History Last Taken Unknown] lisinopril 5 mg tablet 5 mg PO DAILY 12/31/22 [History Last Taken Unknown] loperamide 2 mg capsule 2 mg PO DAILY 12/31/22 [History Last Taken Unknown] memantine 5 mg tablet 5 mg PO QHS 12/31/22 [History Last Taken Unknown] potassium chloride 20 mEq tablet,extended release(part/cryst) 40 meq PO DAILY 12/31/22 [History Last Taken Unknown] sertraline 25 mg tablet 50 mg PO DAILY 12/31/22 [History Last Taken Unknown] thiamine HCl (vitamin B1) 100 mg tablet 100 mg PO DAILY 12/31/22 [History Last Taken Unknown] vitamins A,C,I-gksm-idarte 2,148 mcg-113 mg-45 mg-17.4 mg tablet (Eye Multivitamin) 1 tab PO QHS 12/31/22 [History Last Taken Unknown] Allergy/AdvReac Type Severity Reaction Status Date / Time Sulfa (Sulfonamide Allergy Severe passes out Verified 12/31/22 16:15 Antibiotics) Family History Mother Alcoholism Father Alcoholism Brother Cancer Surgical History History of ankle surgery History of colectomy History of left cataract surgery History of tonsillectomy Hx of right breast biopsy Social History Smoking Status: Never smoker alcohol intake: current alcohol intake frequency: holidays/special occasions only substance use type: does not use ROS ROS ED ROS Narrative Constitutional: No fever, no chills. HEENT: No sore throat. No neck pain. No loss of vision. No rhinorrhea. Cardiovascular: No chest pain. No palpitations. No pedal edema. Respiratory: No cough, no shortness of breath. Abdominal: No abdominal pain. No nausea. No vomiting. Genitourinary: No dysuria. No hematuria. Musculoskeletal: No myalgias. No arthralgias. Neurologic: No headaches. No dizziness. No lightheadedness. Skin: No rash. No change in color. Psychiatric: History of depression. No anxiety. Review of Systems ROS Unobtainable: due to mental condition and other Details: Unable to obtain from patient secondary to dementia. EXAM Physical Exam Narrative Exam Narrative: Afebrile. Vital signs noted. HEENT: Normocephalic. Atraumatic. PERRL, EOMI. Neck soft and supple. No pointtenderness or step off. Cardiovascular: Regular rate and rhythm. No murmurs, rubs, or gallops appreciated. Respiratory: No tachypnea. Lungs clear to auscultation bilaterally. Gastrointestinal: Abdomen soft, nontender, with normoactive bowel sounds. No rebound or guarding. Neurological: Awake. Alert. Oriented to person and place. Nonfocal, nonlateralizing. Skin: No rash. Normal color. No pallor. Musculoskeletal: No pedal edema. Full range of motion extremities. Psychiatric: Calm, not aggressive currently. Const Vital Signs: 12/31/22 16:12 12/31/22 18:26 Temperature 97.1 F L Temperature Source Temporal Pulse Rate 71 Respiratory Rate 16 16 Blood Pressure 105/51 L Blood Pressure Mean 69 Pulse Ox 97 Oxygen Delivery Method Room Air MDM MDM MDM Narrative Medical decision making narrative: Basic laboratories will be obtained. It does sound like that her throwing herself on the ground and her aggressive behavior is more of a behavioral type problem than psychiatric. I will obtain screening labs and a urinalysis to makesure she does not have an electrolyte imbalance or urinary tract infection. I reviewed her laboratory work, she has normal white count of 7.5, hemoglobin stable 11.9, hematocrit 37.1. In review of her electrolyte panel she has a chloride elevated at 112 which I think is nonspecific, BUN of 20 with a creatinine of 1.14. Urine for drugs of abuse is negative. Ethyl alcohol is negative as expected as the patient is a resident of a care home facility. At this point in time, I do feel she is medically cleared for evaluation by mental health/crisis RN reports that after evaluation, she does not meet any criteria for geriatric psychiatric admission/placement. I do feel that her aggressive behavior is most likely secondary to dementia. At this point in time, she will be discharged back to the care home facility. Additionally, she had only given a small sample for urine dipstick which showed leukocyte esterase. After she gave another sample, her leukocyte esterase is down to 100 and there are 5-10 WBCs. This will be sent for culture, but I do not feel that antibiotics are currently indicated as she is not having dysuria and I do not think that is the cause of her aggressive behavior. I feel she be discharged. Disposition is discharged to care home facility in stable condition. History & Record Review Discussion w/independent historian: Unable to obtain (Dementia) Additional record(s) reviewed:: Prior outpatient record and Prior labs Lab Data Attestation: I reviewed the patient's lab results. Labs: Laboratory Results - last 24 hr 12/31/22 12/31/22 12/31/22 16:58 16:58 16:58 WBC 7.5 RBC 4.24 Hgb 11.9 L Hct 37.1 MCV 87.5 MCH 28.1 MCHC 32.1 RDW Std Deviation 48.5 H RDW Coeff of Joey 15.1 H Plt Count 245 MPV 9.4 Immature Gran % (Auto) 0.300 Neut % (Auto) 67.4 Lymph % (Auto) 22.4 [place] % (Auto) 7.2 Eos % (Auto) 2.3 Baso % (Auto) 0.4 Absolute Neuts (auto) 5.1 Absolute Lymphs (auto) 1.68 Nucleated RBC % 0 Sodium 139 Potassium 4.2 Chloride 112 H Carbon Dioxide 24.0 Anion Gap 3 L BUN 20 H Creatinine 1.14 H Estim Creat Clear Calc 39.08 Est GFR (MDRD) Af Amer 58 L Est GFR (MDRD) Non-Af 48 L BUN/Creatinine Ratio 17.5 Glucose 99 Calcium 9.2 Total Bilirubin 0.20 AST 11 L ALT 17 Alkaline Phosphatase 83 Total Protein 7.2 Albumin 3.4 Globulin 3.8 Albumin/Globulin Ratio 0.9 Urine Color Urine Clarity Urine pH Ur Specific Clear [place] Urine Protein Urine Glucose (UA) Urine Ketones Urine Occult Blood Urine Nitrite Urine Bilirubin Urine Urobilinogen Ur Leukocyte Esterase Urine RBC Urine WBC Ur Squamous Epith Cells Ur Transition Epith Cell Ur Renal Epithelial Cell Calcium Oxalate Crystal Uric Acid Crystals Triple Phos Crystals Other Crystals Amorphous Sediment Urine Bacteria Hyaline Casts Fine Granular Casts Coarse Granular Casts Waxy Casts RBC Casts WBC Casts Urine Mucus Urine Trichomonas Urine Yeast Urine Opiates Screen Urine Methadone Screen Ur Barbiturates Screen Ur Phencyclidine Scrn Ur Amphetamines Screen MDMA (Ecstasy) Screen U Benzodiazepines Scrn Urine Cocaine Screen U Cannabinoids Screen Ur Drug Screen Comment Ethyl Alcohol < 3.0 12/31/22 12/31/22 12/31/22 17:18 17:18 19:50 WBC RBC Hgb Hct MCV MCH MCHC RDW Std Deviation RDW Coeff of Joey Plt Count MPV Immature Gran % (Auto) Neut % (Auto) Lymph % (Auto) [place] % (Auto) Eos % (Auto) Baso % (Auto) Absolute Neuts (auto) Absolute Lymphs (auto) Nucleated RBC % Sodium Potassium Chloride Carbon Dioxide Anion Gap BUN Creatinine Estim Creat Clear Calc Est GFR (MDRD) Af Amer Est GFR (MDRD) Non-Af BUN/Creatinine Ratio Glucose Calcium Total Bilirubin AST ALT Alkaline Phosphatase Total Protein Albumin Globulin Albumin/Globulin Ratio Urine Color Yellow Urine Clarity Clear Urine pH 5.0 Ur Specific [place] 1.030 Urine Protein 30 H Urine Glucose (UA) Normal Urine Ketones Negative Urine Occult Blood 25 H Urine Nitrite Negative Urine Bilirubin Negative Urine Urobilinogen Normal Ur Leukocyte Esterase 500 H Urine RBC Cancelled Urine WBC Cancelled Ur Squamous Epith Cells Cancelled Ur Transition Epith Cell Cancelled Ur Renal Epithelial Cell Cancelled Calcium Oxalate Crystal Cancelled Uric Acid Crystals Cancelled Triple Phos Crystals Cancelled Other Crystals Cancelled Amorphous Sediment Cancelled Urine Bacteria Cancelled Hyaline Casts Cancelled Fine Granular Casts Cancelled Coarse Granular Casts Cancelled Waxy Casts Cancelled RBC Casts Cancelled WBC Casts Cancelled Urine Mucus Cancelled Urine Trichomonas Cancelled Urine Yeast Cancelled Urine Opiates Screen Cancelled NEGATIVE Urine Methadone Screen Cancelled NEGATIVE Ur Barbiturates Screen Cancelled NEGATIVE Ur Phencyclidine Scrn Cancelled NEGATIVE Ur Amphetamines Screen Cancelled NEGATIVE MDMA (Ecstasy) Screen Cancelled NEGATIVE U Benzodiazepines Scrn Cancelled NEGATIVE Urine Cocaine Screen Cancelled NEGATIVE U Cannabinoids Screen Cancelled NEGATIVE Ur Drug Screen Comment Cancelled Ethyl Alcohol 12/31/22 19:50 WBC RBC Hgb Hct MCV MCH MCHC RDW Std Deviation RDW Coeff of Joey Plt Count MPV Immature Gran % (Auto) Neut % (Auto) Lymph % (Auto) [place] % (Auto) Eos % (Auto) Baso % (Auto) Absolute Neuts (auto) Absolute Lymphs (auto) Nucleated RBC % Sodium Potassium Chloride Carbon Dioxide Anion Gap BUN Creatinine Estim Creat Clear Calc Est GFR (MDRD) Af Amer Est GFR (MDRD) Non-Af BUN/Creatinine Ratio Glucose Calcium Total Bilirubin AST ALT Alkaline Phosphatase Total Protein Albumin Globulin Albumin/Globulin Ratio Urine Color Yellow Urine Clarity Clear Urine pH 5.0 Ur Specific [place] 1.025 Urine Protein Negative Urine Glucose (UA) Normal Urine Ketones Negative Urine Occult Blood 10 H Urine Nitrite Negative Urine Bilirubin Negative Urine Urobilinogen Normal Ur Leukocyte Esterase 100 H Urine RBC 0-5 SEEN Urine WBC 5-10 SEEN Ur Squamous Epith Cells 0-5 SEEN Ur Transition Epith Cell Ur Renal Epithelial Cell Calcium Oxalate Crystal Uric Acid Crystals Triple Phos Crystals Other Crystals Amorphous Sediment Urine Bacteria 1+ Hyaline Casts Fine Granular Casts Coarse Granular Casts Waxy Casts RBC Casts WBC Casts Urine Mucus 0 SEEN Urine Trichomonas Urine Yeast Urine Opiates Screen Urine Methadone Screen Ur Barbiturates Screen Ur Phencyclidine Scrn Ur Amphetamines Screen MDMA (Ecstasy) Screen U Benzodiazepines Scrn Urine Cocaine Screen U Cannabinoids Screen Ur Drug Screen Comment Ethyl Alcohol Discharge Plan Triage Chief Complaint: Mental Health ED Provider: Jos Dumont Dx/Rx/DC Orders Clinical Impression: Aggressive behavior due to dementia, Dementia Instructions: ED CAREGIVER SUPPORT for DEMENTIA Prescriptions: No Action cholecalciferol (vitamin D3) 1,000 unit capsule 1,000 unit capsule 1,000 unit PO DAILY docusate sodium [Dulcolax Stool Softener (dss)] 100 mg capsule 100 mg PO DAILY Qty: 30 0RF [id number]-minerals 1 EACH tablet 1 ea PO DAILY loperamide 2 mg capsule 2 mg PO DAILY donepezil 10 mg tablet 10 mg PO QHS Rx Instructions: GIVEN AT BEDTIME. thiamine HCl (vitamin B1) 100 mg Tablet 100 mg PO DAILY potassium chloride 20 mEq tablet,ER particles/crystals 40 meq PO DAILY sertraline 25 mg tablet 50 mg PO DAILY lisinopril 5 mg tablet 5 mg PO DAILY gabapentin 100 mg capsule 100 mg PO TID memantine 5 mg tablet 5 mg PO QHS Rx Instructions: GIVEN AT BEDTIME. Eye Multivitamin 2,148 mcg-113 mg-45 mg-17.4mg Tablet 1 tab PO QHS Rx Instructions: GIVEN AT BEDTIME. Primary Care Provider: Jaki Anderson Referrals: Jaki Anderson MD [Primary Care Provider] - Disposition Disposition: Half-Way Facility Discharge Location: [facility] What to do if you have Problems For any increased pain, shortness of breath, bleeding, nausea or vomiting, chestpain, or any unexpected problems, contact your Primary Care Provider. Call [facility] ([phone]) or report to the closest Emergency Room. Call 911 if necessary. 12/31/222112 <Electronically signed by Jos Dumont MD> Cosigner Signature (if applicable): CC: Dr. Jaki Anderson MD ~ Signed [facility] Work Phone: Evaluation note Note Date & Type Note Facility Evaluation note No assessment information availa ble [facility] Work Phone: Hospital Discharge instructions Note Date & Type Note Facility Hospital Discharge instructions Additional Instructions Continue previous medications and activities as previously prescribed. [facility] Work Phone: Reason for referral (narrative) Note Date & Type Note Facility Reason for referral (narrative) No reason for referral information available [facility] Work Phone: Family History No Family History Records Found Relationship Condition Age at Onset Recorded Date/T juan mother Alcoholism Unknown father Alcoholism Unknown brother Malignant neoplasm Unknown Relationship Condition Age at Onset Recorded Date/T juan Not Specified Cardiac disease Unknown mother Alcoholism Unknown father Alcoholism Unknown brother Malignant neoplasm Unknown Advance Directives No Advanced Directives Records Found Advance Directive Response Recorded Date/ Time Living Will No February 21, 2019 2:51pm Power of Telecom Field Technician No February 21 2:51pm Advance Directive Response Recorded Date/ Time Living Will No February 21, 2019 1:51pm Power of Telecom Field Technician No February 21 1:51pm Advance Directive Response Recorded Date/ Time Name of Medical Power of Telecom Field Technician MENDEZ SHAVER December 31, 2022 4:19pm Living Will Yes December 31, 2022 4:19pm Power of Telecom Field Technician Yes December 31 4:19pm Advance Directive Response Recorded Date/ Time Living Will Yes December 31, 2022 4:19pm Power of Telecom Field Technician Yes December 31 4:19pm Advance Directive Response Recorded Date/ Time Living Will Yes December 31, 2022 3:19pm Power of Telecom Field Technician Yes December 31 3:19pm Advance Directive Response Recorded Date/ Time Living Will Yes October 30 10:03am Power of Telecom Field Technician Yes October 30, 2023 10:03am Advance Directive Response Recorded Date/ Time Living Will Yes October 30 11:03am Power of Telecom Field Technician Yes October 30, 2023 11:03am Chief Complaint and Reason for Visit Chief Complaint LABWORK Chief Complaint LABWORK [facility] WORK [facility] WORK Chief Complaint LABWORK [facility] WORK [facility] WORK [facility] LABWORK Chief Complaint LABWORK [facility] LAB WORK [facility] LAB WORK [facility] LABWORK [facility] LABWORK MONTHLY EXAM Chief Complaint LABWORK [facility] LAB WORK [facility] LAB WORK [facility] LABWORK [facility] LABWORK MONTHLY EXAM [facility] LABWORK LABWORK Chief Complaint LABWORK [facility] LAB WORK [facility] LAB WORK [facility] LABWORK [facility] LABWORK MONTHLY EXAM [facility] LABWORK LABWORK [facility] LABWORK Chief Complaint [facility] LAB WOR K [facility] LABWORK [facility] LABWORK MONTHLY EXAM [facility] LABWORK LABWORK [facility] LABWORK LABWORK Chief Complaint [facility] LABWORK [facility] LABWORK MONTHLY EXAM [facility] LABWORK LABWORK [facility] LABWORK LABWORK [facility] LABWORK MONTHLY EXAM Chief Complaint [facility] LABWORK MONTHLY EXAM [facility] LABWORK LABWORK [facility] LABWORK LABWORK LABWORK [facility] LABWORK MONTHLY EXAM Chief Complaint LABWORK [facility] LABWORK LABWORK LABWORK [facility] LABWORK MONTHLY EXAM [facility] LAB WORK LABWORK Chief Complaint LABWORK [facility] LABWORK MONTHLY EXAM [facility] LAB WORK LABWORK MONTHLY EXAM [facility] LABWORK [facility] LAB WORK LABWORK Chief Complaint LABWORK MONTHLY EXAM [facility] LABWORK [facility] WORK LABWORK LABWORK NEW CONCERN/PROBLEM [facility] LAB WORK MONTHLY EXAM Chief Complaint LABWORK MONTHLY EXAM [facility] LABWORK [facility] WORK LABWORK [facility] LAB WORK LABWORK NEW CONCERN/PROBLEM [facility] LAB WORK MONTHLY EXAM Chief Complaint LABWORK MONTHLY EXAM [facility] LABWORK [facility] WORK LABWORK [facility] WORK LABWORK NEW CONCERN/PROBLEM [facility] LAB WORK [facility] LABWORK MONTHLY EXAM Chief Complaint LABWORK [facility] LAB WORK LABWORK NEW CONCERN/PROBLEM [facility] LAB WORK [facility] LABWORK MONTHLY EXAM [facility] LABWORK MONTHLY EXAM [facility] LABWORK MONTHLY EXAM Chief Complaint LABWORK [facility] LAB WORK LABWORK NEW CONCERN/PROBLEM [facility] LAB WORK [facility] LABWORK MONTHLY EXAM [facility] LABWORK MONTHLY EXAM [facility] LABWORK LABWORK MONTHLY EXAM Chief Complaint [facility] LAB WOR K LABWORK NEW CONCERN/PROBLEM [facility] LAB WORK [facility] LABWORK MONTHLY EXAM [facility] LABWORK MONTHLY EXAM [facility] LABWORK LABWORK MONTHLY EXAM [facility] LABWORK MENTAL HEALTH Chief Complaint [facility] LAB WOR K LABWORK NEW CONCERN/PROBLEM [facility] LAB WORK [facility] LABWORK MONTHLY EXAM [facility] LABWORK MONTHLY EXAM [facility] LABWORK LABWORK MONTHLY EXAM [facility] LABWORK LABWORK MENTAL HEALTH Chief Complaint NEW CONCERN/PROBLEM [facility] LAB WORK [facility] LABWORK MONTHLY EXAM [facility] LABWORK MONTHLY EXAM [facility] LABWORK LABWORK MONTHLY EXAM [facility] LABWORK LABWORK MENTAL HEALTH [facility] LABWORK Chief Complaint [facility] LABWORK MONTHLY EXAM [facility] LABWORK MONTHLY EXAM [facility] LABWORK LABWORK MONTHLY EXAM [facility] LABWORK LABWORK MENTAL HEALTH [facility] LABWORK LABWORK [facility] LAB WORK Chief Complaint MENTAL HEALTH MONTHLY EXAM [facility] LABWORK MONTHLY EXAM MONTHLY EXAM LABWORK [facility] LAB WORK [facility] LABWORK MCFP LABWORK [facility] LAB WORK [facility] LAB WORK MONTHLY EXAM [facility] LABWORK Chief Complaint [facility] LABWORK MONTHLY EXAM MONTHLY EXAM LABWORK [facility] LAB WORK [facility] LABWORK MCFP LABWORK [facility] LAB WORK [facility] LAB WORK MONTHLY EXAM [facility] LABWORK [facility] LABWORK Chief Complaint [facility] LAB WOR K [facility] LABWORK [facility] LABWORK [facility] LAB WORK [facility] LAB WORK MONTHLY EXAM [facility] LABWORK [facility] LABWORK LABWORK MONTHLY EXAM Chief Complaint [facility] LABWORK [facility] LABWORK LABWORK MONTHLY EXAM MONTHLY EXAM [facility] LAB WORK [facility] LABWORK LABWORK [facility] LABWORK Chief Complaint [facility] LABWORK LABWORK MONTHLY EXAM MONTHLY EXAM [facility] LAB WORK [facility] LABWORK LABWORK NEW CONCERN [facility] LABWORK [facility] LAB WORK Chief Complaint MONTHLY EXAM MONTHLY EXAM [facility] LAB WORK [facility] LABWORK LABWORK NEW CONCERN [facility] LABWORK MONTHLY EXAM [facility] LAB WORK MCFP LABWORK [facility] LAB WORK Chief Complaint [facility] LABWORK LABWORK NEW CONCERN [facility] LABWORK MONTHLY EXAM [facility] LAB WORK MCFP LABWORK MCFP LAB WORK MCFP LABWORK Chief Complaint [facility] LABWORK LABWORK NEW CONCERN [facility] LABWORK MONTHLY EXAM [facility] LAB WORK MCFP LABWORK [facility] LAB WORK MONTHLY EXAM MCFP LABWORK MCFP LABWORK Chief Complaint [facility] LABWORK MONTHLY EXAM [facility] LAB WORK MCFP LABWORK [facility] LAB WORK MONTHLY EXAM [facility] LABWORK MONTHLY EXAM [facility] LABWORK [facility] LAB WORK Chief Complaint [facility] LABWORK MONTHLY EXAM [facility] LAB WORK MCFP LABWORK [facility] LAB WORK MONTHLY EXAM [facility] LABWORK MONTHLY EXAM [facility] LABWORK [facility] LAB WORK LABWORK Chief Complaint [facility] LAB WOR K [facility] LABWORK [facility] LAB WORK MONTHLY EXAM [facility] LABWORK MONTHLY EXAM [facility] LABWORK [facility] LAB WORK LABWORK [facility] LAB WORK Chief Complaint [facility] LABWORK [facility] LAB WORK MONTHLY EXAM [facility] LABWORK MONTHLY EXAM [facility] LABWORK [facility] LAB WORK MONTHLY EXAM PA LABWORK [facility] LAB WORK [facility] LAB WORK Chief Complaint [facility] LABWORK [facility] LAB WORK MONTHLY EXAM [facility] LABWORK MONTHLY EXAM [facility] LABWORK [facility] LAB WORK MONTHLY EXAM PA LABWORK [facility] LAB WORK [facility] LAB WORK [facility] LAB WORK Chief Complaint [facility] LAB WOR K MONTHLY EXAM [facility] LABWORK MONTHLY EXAM [facility] LABWORK [facility] LAB WORK MONTHLY EXAM PA LABWORK [facility] LAB WORK [facility] LAB WORK MONTHLY EXAM [facility] LAB WORK [facility] LAB WORK Chief Complaint LABWORK MONTHLY EXAM MONTHLY EXAM [facility] LAB WORK [facility] LABWORK LABWORK NEW CONCERN [facility] LABWORK MONTHLY EXAM [facility] LAB WORK [facility] LABWORK Chief Complaint Admit Date [facility] LAB WORK August 19 5:00am [facility] LAB WORK September 16, 2024 4:35am MONTHLY EXAM September 16, 2024 4: 10pm [facility] LAB WORK October 13, 2024 5:00am LABWORK November 11, 2024 2:00 pm Chief Complaint Admit Date LABWORK November 11, 2024 2:00 pm MONTHLY EXAM November 11, 2024 4:24 pm MONTHLY EXAM December 12, 2024 1:55 pm Chief Complaint Admit Date MONTHLY EXAM December 12, 2024 1:55 pm MONTHLY EXAM January 27, 2025 3:45p m Chief Complaint Admit Date MONTHLY EXAM December 12, 2024 1:55 pm MONTHLY EXAM January 27, 2025 3:45p m MONTHLY EXAM February 24, 2025 6:15 pm Summary Purpose Additional Source Comments Goals (unrecognized section and content) Goals may be documented in a n alternate sectionGoals may be documented in an alternate sectionGoals may be documented in an alternate sectionGoals may be documented in an alternate sectionGoals may be documented in an alternate sectionGoals may be documented in an alternate sectionGoals may be documented in an alternate sectionGoals may be documented in an alternate sectionGoals may be documented in an alternate sectionGoals may be documented in an alternate sectionGoals may be documented in an alternate sectionGoals may be documented in an alternate sectionGoals may be documented in an alternate sectionGoals may be documented in an alternate sectionGoals may be documented in an alternate sectionGoals may be documented in an alternate sectionGoals may be documented in an alternate sectionGoals may be documented in an alternate sectionGoals may be documented in an alternate sectionGoals may be documented in an alternate sectionGoals may be documented in an alternate sectionGoals may be documented in an alternate sectionGoals may be documented in an alternate sectionGoals may be documented in an alternate sectionGoals may be documented in an alternate sectionGoals may be documented in an alternate sectionGoals may be documented in an alternate sectionGoals may be documented in an alternate sectionGoals may be documented in an alternate sectionGoals may be documented in an alternate sectionGoals may be documented in an alternate sectionGoals may be documented in an alternate sectionGoals may be documented in an alternate sectionGoals may be documented in an alternate sectionGoals may be documented in an alternate sectionGoals may be documented in an alternate sectionGoals may be documented in an alternate sectionGoals may be documented in an alternate sectionGoals may be documented in an alternate sectionGoals may be documented in an alternate sectionGoals may be documented in an alternate sectionGoals may be documented in an alternate sectionGoals may be documented in an alternate sectionGoals may be documented in an alternate sectionGoals may be documented in an alternate sectionGoals may be documented in an alternate sectionGoals may be documented in an alternate section Care Teams (unrecognized sec tion and content) Team Status: Active Member Role Status Dates Dr. Winston Flower MD Family Provider Active Dr. Jaki Anderson MD Primary Care Provider Active Team Status: Inactive Member Role Status Dates Dr. Jaki nAderson MD Primary Care Provider Active Dr. Jose Raul Pulliam MD Attending Provider Active Team Status: Inactive Member Role Status Dates Dr. Jaki Anderson MD Primary Care Provider Active Krissy Alex LEAD DRIVER, LEAD DRIVER-C Attending Provider Active Team Status: Inactive Member Role Status Dates Dr. Jaki Anderson MD Primary Care Provider Active Yahir Foster MD Attending Provider Active Team Status: Inactive Member Role Status Dates Dr. Jaki Anderson MD Primary Care Provider Active Yahir Foster MD Attending Provider, Referring Provi archie Active Team Status: Active Member Role Status Dates Dr. Jaki Anderson MD Primary Care Provider Active Jose Raul Pulliam MD Attending Provider Active Team Status: Inactive Member Role Status Dates Dr. Jaki Anderson MD Primary Care Provider Active Jose Raul Pulliam MD Attending Provider Active Team Status: Inactive Member Role Status Dates Dr. Jaki Anderson MD Primary Care Provider Active Jose Raul Pulliam MD Attending Provider, Referring Pr ovider Active Team Status: Active Member Role Status Dates Dr. Jaki Anderson MD Primary Care Provider Active Yahir Foster MD Attending Provider Active Team Status: Inactive Member Role Status Dates Dr. Jaki Anderson MD Primary Care Provider Active Krissy MCDERMOTT NP-Philip Attending Provider Active Team Status: Inactive Member Role Status Dates Dr. Jaki Anderson MD Primary Care Provider Active Yahir MCDERMOTT MD Attending Provider Active Team Status: Inactive Member Role Status Dates Dr. Jaki Anderson MD Primary Care Provider Active Jose Raul MCDERMOTT MD Attending Provider Active Team Status: Inactive Member Role Status Dates Dr. Jaki Anderson MD Primary Care Provider Active Jose Raul MCDERMOTT MD Attending Provider, Referring Provider Active Team Status: Active Member Role Status Dates Dr. Jaki Anderson MD Primary Care Provider Active Jose Raul MCDERMOTT MD Attending Provider Active Team Status: Active Member Role Status Dates Dr. Jaki Anderson MD Primary Care Provider Active Yahir MCDERMOTT MD Attending Provider Active Team Status: Inactive Member Role Status Dates Dr. Jaki Anderson MD Primary Care Provider Active Jos Dumont MD Emergency Provider Active Team Status: Inactive Member Role Status Dates Dr. Jaki Anderson MD Primary Care Provider Active Jos Dumont MD Attending Provider, Emergency Provid er Active Team Status: Inactive Member Role Status Dates Dr. Jaki Anderson MD Primary Care Provider Active Krissy MCDERMOTT NP-C Attending Provider, Referrin g Provider Active Team Status: Active Member Role Status Dates Dr. Jaki Anderson MD Primary Care Provider Active Yahir MCDERMOTT MD Attending Provider, Referring Pr ovider Active Team Status: Active Member Role Status Dates Dr. Jaki Anderson MD Primary Care Provider Active Jose Raul MCDERMOTT MD Attending Provider, Referring Provider Active Team Status: Inactive Member Role Status Dates Dr. Jaki Anderson MD Primary Care Provider Active Yahir MCDERMOTT MD Attending Provider, Referring Pr ovider Active Team Status: Inactive Member Role Status Dates Dr. Jaki Anderson MD Primary Care Provider Active SEVERO Hernandez Attending Provider Active Team Status: Inactive Member Role Status Dates Dr. Jaki Anderson MD Primary Care Provider Active Start: August 19, 2024 End: August 19, 2024 Jose Raul MCDERMOTT MD Attending Provider Active Start: August 19, 2024 End: August 19, 2024 Team Status: Active Member Role Status Dates Dr. Jaki Anderson MD Primary Care Provider Active Start: September 16, 2024 Jose Raul MCDERMOTT MD Attending Provider Active Start: September 16, 2024 Jose Raul MCDERMOTT MD Referring Provider Active Start: September 16, 2024 Team Status: Inactive Member Role Status Dates Dr. Jaki Anderson MD Primary Care Provider Active Start: September 16, 2024 End: September 16, 2024 Dr. Jose Raul Pulliam MD Attending Provider Active Start: September 16, 2024 End: September 16, 2024 Team Status: Active Member Role Status Dates Dr. Jaki Anderson MD Primary Care Provider Active Start: October 13, 2024 Jose Raul MCDERMOTT MD Attending Provider Active Start: October 13, 2024 Team Status: Inactive Member Role Status Dates Dr. Jaki Anderson MD Primary Care Provider Active Start: November 11, 2024 End: November 11, 2024 Jose Raul MCDERMOTT MD Attending Provider Active Start: November 11, 2024 End: November 11, 2024 Team Status: Inactive Member Role Status Dates Dr. Jaki Anderson MD Primary Care Provider Active Start: November 11, 2024 End: November 11, 2024 Dr. Jose Raul Pulliam MD Attending Provider Active Start: November 11, 2024 End: November 11, 2024 Team Status: Inactive Member Role Status Dates Dr. Jaki Anderson MD Primary Care Provider Active Start: December 12, 2024 End: December 12, 2024 Krissy Alex LEAD DRIVER, LEAD DRIVER-C Attending Provider Active Start: December 12, 2024 End: December 12, 2024 Team Status: Active Member Role/Relationship Status Dates Dr. Winston Flower MD Family Provider Active Dr. Jaki Anderson MD Primary Care Provider Active Team Status: Inactive Member Role/Relationship Status Dates Dr. Jaki Anderson MD Primary Care Provider Active Start: December 12, 2024 End: December 12, 2024 JOY Meléndez NP Attending Provider Active Start: December 12, 2024 End: December 12, 2024 Team Status: Inactive Member Role/Relationship Status Dates Dr. Jaki Anderson MD Primary Care Provider Active Start: January 27, 2025 End: January 27, 2025 Dr. Jose Raul Pulliam MD Attending Provider Active Start: January 27, 2025 End: January 27, 2025 Team Status: Inactive Member Role/Relationship Status Dates Dr. Jaki Anderson MD Primary Care Provider Active Start: February 24, 2025 End: February 24, 2025 JOY Meléndez NP Attending Provider Active Start: February 24, 2025 End: February 24, 2025 INFORMATION SOURCE (unrecogn ized section and content) DATE CREATED AUTHOR 03/29/2025 [facility] FOR RECORDS PERTAINING TO PATIENTS WHO ARE OR HAVE BEEN ENROLLED IN A CHEMICAL DEPENDENCY/SUBSTANCEABUSE PROGRAM, SOME INFORMATION MAY BE OMITTED. This clinical summary was aggregated from multiple sources. Caution should be exercised in using it in the provision of clinical care. This summary normalizes information from multiple sources, and as a consequence, information in this document may materially change the coding, format and clinical context of patient data. In addition, data may be omitted in some cases. CLINICAL DECISIONS SHOULD BE BASED ON THE PRIMARY CLINICAL RECORDS. [employer] provides no warranty or guarantee of the accuracy or completeness of information in this document.
[2025-04-14 09:36] LABS: Hematocrit 35.4 % (37-47); Hemoglobin 11.0 g/dL (12.0-15.0); Mean Corp Hgb Conc 31.1 g/dL (32-36); Mean Corpuscular Volume 86.1 fL (81-99); Mean Platelet Vol. 9.8 fl (6.2-12.0); Platelet Count 256 K/mm3 (150-450); RBC Distribution Width CV 15.9 % (11.6-14.6); RBC Distribution Width SD 50.2 fl (35.1-43.9); Red Blood Count 4.11 M/mm3 (4.2-5.4); White Blood Count 7.3 K/mm3 (4.4-11.0)
[2025-04-14 09:57] LABS: Anion Gap 10 (5-15); BUN 14 mg/dL (4-19); BUN/Creat Ratio 17.5 RATIO (10-20); Calcium,Total 8.4 mg/dL (7.6-11.0); Carbon Dioxide 22.5 mmol/L (21.0-32.0); Chloride 108 mmol/L (98-108); Glucose 106 mg/dL (70-99); Potassium 3.9 mmol/L (3.3-5.1)
== END ==
LOC: OLS.WHLCAR 05:00
PROVIDERS: PCP Internal Medicine; Visit Provider Internal Medicine
DX: E56.9 Vitamin deficiency, unspecified (principal); I27.20 Pulmonary hypertension, unspecified
CPT/HCPCS: 36415; 80048; 85027

== ENCOUNTER → 2025-04-25 | Outpatient (REF) | payer MEDICARE, MEDICAID, SELFPAY ==
--- OUTSIDE RECORDS SUMMARY | 2025-04-25 18:48 | XMS RPT_ITS | CCD ---
Author Organization [facility] Care Team Providers Care Traffic Technician Name Role Phone Dr. Jaki Anderson Primary Care Provider Tickkarli RHIA, RHIA-C Krissy Attending Provider Dr. Jaki Estrella Primary Care Provider Tickkarli RHIA, RHIA-C Krisys Attending Provider Dr. Jose Raul Dumas Attending Provider [phone] Dr. Jaki Anderson Primary Care Provider Tickkarli RHIA, RHIA-C Krissy Attending Provider Dr. Jaki Estrella Primary Care Provider [place] RHIA, RHIA-C Krissy Attending Provider Traciv mercedez Alex OLS, RHIA-C Krissy Attending Provider Dr. Jose Raul Pulliam Attending Provider [phone] Jaki Anderson Primary Care Provider [place] RHIA, RHIA-C Krissy Attending Provider Dr. Jaki Estrella Primary Care Provider Tickkarli RHIA, RHIA-C Krissy Attending Provider Dr. Jose Raul Dumas Attending Provider Dr. Jaki Anderson Primary Care Provider Tickkarli RHIA, RHIA-C Krissy Attending Provider Dr. Jaki Estrella Primary Care Provider Dr. Jose Raul Pulliam Attending Provider [place] RHIA, RHIA-C Krissy Attending Provider Unav Dr. Jaki Estevez Primary Care Provider [place] RHIA, RHIA-C Krissy Attending Provider Unav Dr. Jose Raul Adams Attending Provider [phone] Dr. Jaki Anderson Primary Care Provider [place] RHIA, RHIA-C Krissy Attending Provider Dr. Jose Raul Pulliam Attending Provider [phone] Dr. Jaki Anderson Primary Care Provider [place] RHIA, RHIA-C Krissy Attending Provider Dr. Jaki Anderson Primary Care Provider Dr. Jose Raul Pulliam Attending Provider [phone] Dr. Jaki Anderson Primary Care Provider [place] RHIA, RHIA-C Krissy Attending Provider Dr. Jose Raul Pulliam Attending Provider [phone] SEVERO Villegas Attending Provider Monica JERONIMO, Dr. Pollack Primary Care Provider Jose Raul Pulliam MD Attending Provider UnavailJose Raul Palumbo MD Referring Provider Chelle Pulliam MD, Dr. Blunt Attending Provider [phone] Monica JERONIMO, Dr. Pollack Primary Care Provider Jose Raul Pulliam MD Attending Provider Unavailgregg Pulliam MD, Dr. Blunt Attending Provider Abi RHIA-C, Krissy Attending Provider Monica JERONIMO, Dr. Pollack Primary Care Provider Dr. Jose Raul Pulliam MD Attending Provider Monica JERONIMO, Dr. Pollack Primary Care Provider Abi RHIA-C, Krissy Attending Provider Jose Raul Pulliam MD Attending Provider Unavaila ble Oleghe OLS, Efewongbe Attending Unavailabl e Monica, Jaki Primary Care Unavailable Oleghe OLS, Efewongbe Attending Unavailabl e Monica, Jaki Primary Care Unavailable Oleghe OLS, Efewongbe Attending Unavailabl e Monica, Jaki Primary Care Unavailable [place] RHIA, Krissy Attending Unavailable Monica, Jaki Primary Care Unavailable Oleghe, Efewongbe Attending Unavailable Monica, Jaki Primary Care Unavailable [place] RHIA, Krissy Attending Unavailable Monica, Jaki Primary Care Unavailable Oleghe, Efewongbe Attending Unavailable Monica, Jaki Primary Care Unavailable Oleghe, Efewongbe Attending Unavailable Monica, Jaki Primary Care Unavailable Monica, Jaki Primary Care Unavailable [place] RHIA, Krissy Attending Unavailable Oleghe, Efewongbe Attending Unavailable Monica, Jaki Primary Care Unavailable Oleghe, Efewongbe Attending Unavailable Monica, Jaki Primary Care Unavailable Oleghe, Efewongbe Attending Unavailable Monica, Jaki Primary Care Unavailable Oleghe OLS, Efewongbe Attending Unavailabl e Monica, Jaki Primary Care Unavailable Oleghe OLS, Efewongbe Attending Unavailabl e Monica, Jaki Primary Care Unavailable Monica, Jaki Primary Care Unavailable Oleghe OLS, Efewongbe Attending Unavailabl e Oleghe OLS, Efewongbe Referring Unavailabl e Oleghe [...] to substance 07-06-[address] [facility] Medications Current Medications Medication Drug Class(es) Dates Sig (Normalized) Sig (Original) acetaminophen 325 mg oral tablet (11 sources) Start: 01-25-2022 Acetaminophen (Tylenol) 325 mg Tablet Active 650 mg PO EVERY 6 HOURS NEEDED as needed for Pain Score 1-10/Temp > 100.7 F 0 0 January 25, 2022 12:00am Start: 01-25-2022 take 2 tablets by [facility] every six hours as needed Acetaminophen (Tylenol) 325 mg Tablet Active 650 MG PO EVERY 6 HOURS NEEDED 0 January 25, 2022 12:00am ascorbic acid 113 mg / beta carotene 7160 mg / cuprous oxide 0.4 mg / dl-alpha tocopheryl acetate 100 unt / zinc oxide 17.4 mg oral tablet (20 sources) Vitamin C Start: 12-31-2022 Vitamins A,C,W-Bajg-Elpjge (Eye Multivitamin) 2,148 mcg-113 mg-45 mg-17.4mg Tablet Active 1 {tbl} PO AT BEDTIME December 31, 2022 12:00am GIVEN AT BEDTIME. cefadroxil 500 mg oral capsule (11 sources) Cephalosporin Antibacterial Start: 01-25-2022 take 1 capsule by mouth twice daily Cefadroxil 500 mg capsule Active 500 mg PO TWICE A DAY 10 January 25, 2022 12:00am cholecalciferol 0.025 mg [...] mg capsule Active 100 mg PO DAILY 30 0 July 06, 2020 12:00am docusate sodium 50 mg / sennosides, chcf 8.6 mg oral tablet (11 sources) Start: 01-25-2022 Sennosides-Docusate Sodium (Stool Softener-Stimulant Laxat) 8.6-50 mg Tablet Active 2 {tbl} PO TWICE DAILY NEEDED as needed for Constipation 0 January 25, 2022 12:00am donepezil hydrochloride 10 [...] Active 1 mg PO WITH BREAKFAST 0 0 January 25, 2022 12:00am Start: 02-21-2019 [...] mg Tablet Active 5 mg PO DAILY 30 0 January 25, 2022 12:00am Hold for SBP [...] hydrochloride 5 mg oral tablet (20 sources) I-fmktea-H-aspart ate Receptor Antagonist Start: 12-31-2022 take 1 tablet by mouth at bedtime Memantine 5 mg tablet Active 5 mg PO AT BEDTIME December 31, 2022 12:00am GIVEN AT BEDTIME. Mxwnfdsdeezn-Ss-Xdqf -Minerals (20 sources) Start: 02-21-2019 Multivitamin-C a-I marina-Minerals Active 1 EACH PO DAILY February 21, 2019 2:47pm Start: 02-21-2019 Multivitamin-C x-Nmkv-Ssxamewy Active 1 EACH PO DAILY February 20, 2019 11:00pm Start: 02-21-2019 Multivitamin-C c-Qtsg-Sayytvxj Active 1 EACH PO DAILY February 21, 2019 12:00am Vvpoedjsnecr-Ir-Qpac-Mineral s 1 EACH tablet (5 sources) Start: 02-21-2019 take 1 tablet by mouth once daily Jrdsrriafrzw-Mx-Jmzp-Minerals 1 EACH tablet Active 1 NMA PO [...] 40 meq PO DAILY WITH MEALS 10 January 25, 2022 12:00am Start: 02-11-2019 End: [...] 4 HOURS NEEDED as needed for Pain 09 03February 24, 2019 12:00am March 01, 2019 12:00am March 02, 2019 12:09am Benign neoplasm of right breast Start: 02-24-2019 End: 03-02-2019 take 1 tablet by mouth every four hours as needed Oxycodone-Acetaminophen Discontinued 1 - 2 TABLET PO EVERY 4 HOURS NEEDED 09 03February 24, 2019 12:00am March 02, 2019 12:09am [...] encounter] 05-25-2020 Episodic Other nervous system disorders (11 sources) Disorder of brain; Translations: [Encephalopathy, unspecified] [...] Comment on above: 02/14/2019 Residual codes; unclassified (11 sources) Delirium; Translations: [Disorientation, unspecified] 10-12-2023 Episodic [...] Test Name Value Interpretation Reference Range Facility Anion gap in Serum or Plasma Ordered By: Jose Raul Pulliam on 04-14-2025 Anion gap [Moles/Vol] 10 mmol/L 5-15 [facility] BUN/creatinine ratioOrdered By: Jose Raul Pulliam on 04-14-2025 Urea nitrogen/Creatinine [Mass ratio] 17.5 mg/mg 10-[address] [facility] Carbon dioxide, total [Moles /volume] in Central venous bloodOrdered By: Jose Raul Pulliam on 04-14-2025 CO2 [Moles/Vol] 22.5 mmol/L 21.0-32.[address] [facility] Chloride assayOrdered By: Melia Pulliam on 04-14-2025 Chloride [Moles/Vol] 108 mmol/L 98-108 [facility] Erythrocyte distribution wid th ratioOrdered By: Jose Raul Pulliam on 04-14-2025 Erythrocyte distribution width (RBC) [Ratio] 15.9 % High 11.6-14.[address] [facility] Erythrocyte distribution wid th standard deviationOrdered By: Jose Raul Pulliam on 04-14-2025 Erythrocyte distribution width (RBC) [Ratio] 50.2 fl High 35.1-43.[address] [facility] Glomerular filtration rate ( GFR) estimation/1.73 sq m using serum, plasma, or whole bOrdered By: Jose Raul Pulliam on 04-14-2025 GFR/1.73 sq M.predicted among non-blacks MDRD (S/P/Bld) [Vol rate/Area] 72 mL/min/{1.73_m2} >[address] [facility] Comment on above: mL/min/1.73m2 CKD-EP I Creatinine Equation (2020) Hematocrit Auto (Bld) [Volum e fraction]Ordered By: Jose Raul Pulliam on 04-14-2025 Hematocrit (Bld) [Volume fraction] 35.4 % Low 37-[address] [facility] Hemoglobin measurementOrdere d By: Jose Raul Pulliam 04-14-2025 Hemoglobin (Bld) [Mass/Vol] 11.0 g/dL Low 12.0-15.[address] [facility] MCV (mean corpuscular volume ) determinationOrdered By: Jose Raul Pulliam 04-14-2025 MCV (RBC) [Entitic vol] 86.1 fL 81-99 [facility] Mean corpuscular hemoglobin (MCH) determinationOrdered By: Jose Raul Pulliam on 04-14-2025 MCH (RBC) [Entitic mass] 26.8 pg Low 27.0-32.[address] [facility] Mean corpuscular hemoglobin concentration (MCHC) determinationOrdered By: Jose Raul Pulliam on 04-14-2025 MCHC (RBC) [Mass/Vol] 31.1 g/dL Low 32-36 [facility] Mean platelet volume determi nationOrdered By: Jose Raul Pulliam on 04-14-2025 Platelet mean volume (Bld) [Entitic vol] 9.8 fL 6.2-12.[address] [facility] Platelet countOrdered By: Melia Pulliam on 04-14-2025 Platelets (Bld) [#/Vol] 256 10*3/uL 150-[address] [facility] Potassium measurement (mass/ volume)Ordered By: Jose Raul Pulliam on 04-14-2025 Potassium (Unsp spec) [Mass/Vol] 3.9 mmol/L 3.3-5.[address] [facility] RBC Auto (Bld) [#/Vol]Ordere d By: Jose Raul Pulliam on 04-14-2025 RBC (Bld) [#/Vol] 4.11 10*6/uL Low 4.2-5.4 [facility] Serum creatinine measurement (mass/volume)Ordered By: Jose Raul Pulliam on 04-14-2025 Creatinine [Mass/Vol] 0.80 mg/dL 0.70-1.20 [facility] Serum glucose measurement (m ass/volume)Ordered By: Jose Raul Pulliam on 04-14-2025 Glucose [Mass/Vol] 106 mg/dL High 70-99 [facility] Serum or plasma calcium milagros urement (mass/volume)Ordered By: Jose Raul Pulliam on 04-14-2025 Calcium [Mass/Vol] 8.4 mg/dL 7.6-11.0 [facility] Serum or plasma urea nitroge n measurement (mass/volume)Ordered By: Jose Raul Pulliam on 04-14-2025 Urea nitrogen [Mass/Vol] 14 mg/dL 4-[address] [facility] Sodium levelOrdered By: Franky Pulliam on 04-14-2025 Sodium [Moles/Vol] 140 mmol/L 133-145 [facility] White blood cell (WBC) count Ordered By: Jose Raul Pulliam on 04-14-2025 WBC (Bld) [#/Vol] 7.3 10*3/uL 4.4-11.0 [facility] Bilirubin Test strip Ql (U)O rdered By: Jose Raul Pulliam on 11-11-2024 Bilirubin Ql (U) Negative Negative [facility] Epithelial cells.squamous LM Ql (Urine sed)Ordered By: Jose Raul Pulliam on 11-11-2024 Epithelial cells.squamous LM.HPF (Urine sed) [#/Area] 10 /[HPF] 5-[address] [facility] Glucose Ql (U)Ordered By: Melia Pulliam on 11-11-2024 Urine Glucose (UA) Normal mg/dl Normal [facility] Ketones Test strip Ql (U)Ord ered By: Jose Raul Pulliam on 11-11-2024 Ketones Ql (U) 5 mg/dl High Negative [facility] Microscopic analysis of urin e for red blood cells (RBC)Ordered By: Jose Raul Pulliam on 11-11-2024 Microscopic analysis of urine for red blood cells (RBC) 0 SEEN /hpf 0-[address] [facility] Urine RBC 0 SEEN /hpf 0-[address] [facility] Mucus LM Ql (Urine sed)Order ed By: Jose Raul Pulliam on 11-11-2024 Mucus Ql (Urine sed) 0 SEEN /hpf [facility] Nitrite Test strip Ql (U)Ord ered By: Jose Raul Pulliam on 11-11-2024 Nitrite Ql (U) Negative Negative [facility] Protein Test strip Ql (U)Ord ered By: Jose Raul Pulliam on 11-11-2024 Protein Ql (U) 30 mg/dl High Negative [facility] Squamous epithelial cells de tection in urine sediment by light microscopyOrdered By: Jose Raul Pulliam on 11-11-2024 Epithelial cells.squamous LM Ql (Urine sed) 10-25 SEEN /hpf 5-[address] [facility] Urine blood detectionOrdered By: Jose Raul Pulliam on 11-11-2024 Urine Occult Blood 25 /ul High Negative [facility] Urine clarityOrdered By: Sam Pulliam on 11-11-2024 Clarity (U) Turbid Clear [facility] Urine color determinationOrd ered By: Jose Raul Pulliam on 11-11-2024 Color (U) Yellow Yellow [facility] Urine cultureOrdered By: Sam Pulliam on 11-11-2024 Bacteria identified Cx Nom (U) Positive Abnormal [facility] Urine glucose detectionOrder ed By: Jose Raul Pulliam on 11-11-2024 Glucose Ql (U) Normal mg/dl Normal [facility] Urine leukocyte esterase det ection by dipstickOrdered By: Jose Raul Pulliam on 11-11-2024 Leukocyte esterase Test strip Ql (U) 500 /ul High Negative [facility] Urine pHOrdered By: Donny Pulliam on 11-11-2024 pH (U) 6.0 [pH] 5.0 - 8.[address] [facility] Urine sediment bacteria coun t by microscopy (number/high power field)Ordered By: Jose Raul Pulliam on 11-11-2024 Bacteria LM.HPF (Urine sed) [#/Area] 2 /[HPF] None Seen [facility] Urine specific gravity measu rementOrdered By: Jose Raul Pulliam on 11-11-2024 Specific gravity (U) [Rel density] 1.025 1.002-1.[address] [facility] Urine urobilinogen measureme ntOrdered By: Jose Raul Pulliam on 11-11-2024 Urobilinogen Ql (U) 1 mg/dl High Normal [facility] Urobilinogen Ql (U)Ordered B y: Jose Raul Pulliam on 11-11-2024 Urobilinogen (U) [Mass/Vol] 1 mg/dL High Normal [facility] White blood cell countOrdere d By: Jose Raul Pulliam on 11-11-2024 Urine WBC 25-50 SEEN /hpf 0-[address] [facility] White blood cell count 25-50 SEEN /hpf 0-[address] [facility] Blood urea nitrogen (BUN)/cr eatinine ratioOrdered By: Jose Raul Pulliam on 10-13-2024 Urea nitrogen/Creatinine [Mass ratio] 8.2 mg/mg Low 10-[address] [facility] Carbon dioxide measurementOr dered By: Jose Raul Pulliam on 10-13-2024 CO2 [Moles/Vol] 20.0 mmol/L Low 21.0-32.[address] [facility] Chloride measurementOrdered By: Jose Raul Pulliam on 10-13-2024 Chloride [Moles/Vol] 111 mmol/L High 98-107 [facility] Erythrocyte distribution wid th (RBC) [Ratio]Ordered By: Jose Raul Pulliam on 10-13-2024 Erythrocyte distribution width (RBC) [Entitic vol] 50.4 fL High 35.1-43.[address] [facility] Erythrocyte distribution wid th ratioOrdered By: Jose Raul Pulliam on 10-13-2024 Erythrocyte distribution width (RBC) [Ratio] 16.0 % High 11.6-14.[address] [facility] Estimated glomerular filtrat ion rate (GFR) AmericanOrdered By: Jose Raul Pulliam on 10-13-2024 Estimated GFR (MDRD) Amer 96 mL/min >[address] [facility] Comment on above: GFR Calc Glomerular filtration rate ( GFR) estimationOrdered By: Jose Raul Pulliam on 10-13-2024 Estimated GFR (MDRD) Non-Af Amer 80 mL/min >[address] [facility] Comment on above: Non- GFR Calc Glucose measurementOrdered B y: Jose Raul Pulliam on 10-13-2024 Glucose [Mass/Vol] 73 mg/dL Low 74-106 [facility] Hematocrit Auto (Bld) [Volum e fraction]Ordered By: Jose Raul Pulliam on 10-13-2024 Hematocrit (Bld) [Volume fraction] 36.0 % Low 37-[address] [facility] Hemoglobin measurementOrdere d By: Jose Raul Pulliam on 10-13-2024 Hemoglobin (Bld) [Mass/Vol] 11.4 g/dL Low 12.0-15.[address] [facility] MCV (mean corpuscular volume ) determinationOrdered By: Jose Raul Pulliam on 10-13-2024 MCV (RBC) [Entitic vol] 85.5 fL 81-99 [facility] Mean corpuscular hemoglobin (MCH) determinationOrdered By: Jose Raul Pulliam on 10-13-2024 MCH (RBC) [Entitic mass] 27.1 pg 27.0-32.[address] [facility] Mean corpuscular hemoglobin concentration (MCHC) determinationOrdered By: Jose Raul Pulliam on 10-13-2024 MCHC (RBC) [Mass/Vol] 31.7 g/dL Low 32-36 [facility] Mean platelet volume determi nationOrdered By: Jose Raul Pulliam on 10-13-2024 Platelet mean volume (Bld) [Entitic vol] 10.1 fL 6.2-12.[address] [facility] Platelet countOrdered By: Melia Pulliam on 10-13-2024 Platelets (Bld) [#/Vol] 253 10*3/uL 150-[address] [facility] Potassium measurementOrdered By: Jose Raul Pulliam on 10-13-2024 Potassium [Moles/Vol] 3.6 mmol/L 3.5-5.1 [facility] RBC Auto (Bld) [#/Vol]Ordere d By: Jose Raul Pulliam on 10-13-2024 RBC (Bld) [#/Vol] 4.21 10*6/uL 4.2-5.4 [facility] Serum anion gap measurementO rdered By: Jose Raul Pulliam on 10-13-2024 Anion gap [Moles/Vol] 10 mmol/L 5-15 [facility] Serum or plasma calcium milagros urement (mass/volume)Ordered By: Jose Raul Pulliam on 10-13-2024 Calcium [Mass/Vol] 7.3 mg/dL Low 8.5-10.1 [facility] Serum or plasma creatinine m easurement (mass/volume)Ordered By: Jose Raul Pulliam on 10-13-2024 Creatinine [Mass/Vol] 0.74 mg/dL 0.55-1.02 [facility] Comment on above: The validity of the calculated GFR & GFRAA in patients over 70 years has not been determined. Clinical correlation is essential. Serum or plasma urea nitroge n measurement (mass/volume)Ordered By: Jose Raul Pulliam on 10-13-2024 Urea nitrogen [Mass/Vol] 6 mg/dL Low 7-[address] [facility] Sodium levelOrdered By: Franky Pulliam on 10-13-2024 Sodium [Moles/Vol] 141 mmol/L 136-145 [facility] White blood cell (WBC) count Ordered By: Jose Raul Pulliam on 10-13-2024 WBC (Bld) [#/Vol] 7.1 10*3/uL 4.4-11.0 [facility] Blood urea nitrogen (BUN)/cr eatinine ratioOrdered By: Jose Raul Pulliam on 09-16-2024 Urea nitrogen/Creatinine [Mass ratio] 20.5 mg/mg High 10-[address] [facility] Carbon dioxide measurementOr dered By: Jose Raul Pulliam on 09-16-2024 CO2 [Moles/Vol] 25.0 mmol/L 21.0-32.[address] [facility] Chloride measurementOrdered By: Jose Raul Pulliam on 09-16-2024 Chloride [Moles/Vol] 111 mmol/L High 98-107 [facility] Erythrocyte distribution wid th (RBC) [Ratio]Ordered By: Jose Raul Pulliam on 09-16-2024 Erythrocyte distribution width (RBC) [Entitic vol] 50.8 fL High 35.1-43.[address] [facility] Erythrocyte distribution wid th ratioOrdered By: Jose Raul Pulliam on 09-16-2024 Erythrocyte distribution width (RBC) [Ratio] 16.2 % High 11.6-14.[address] [facility] Estimated glomerular filtrat ion rate (GFR) AmericanOrdered By: Jose Raul Pulliam on 09-16-2024 Estimated GFR (MDRD) Amer 84 mL/min >[address] [facility] Comment on above: GFR Calc Glomerular filtration rate ( GFR) estimationOrdered By: Jose Raul Pulliam on 09-16-2024 Estimated GFR (MDRD) Non-Af Amer 70 mL/min >[address] [facility] Comment on above: Non- GFR Calc Glucose measurementOrdered B y: Frankycarolynjennifer Pulliam on 09-16-2024 Glucose [Mass/Vol] 100 mg/dL 74-106 [facility] Comment on above: Fasting Glucose resu lt from 100 to 125 mg/dL suggests IMPAIRED HOMEOSTASIS per A.D.A. criteria. Hematocrit Auto (Bld) [Volum e fraction]Ordered By: Jose Raul Pulliam on 09-16-2024 Hematocrit (Bld) [Volume fraction] 38.6 % 37-[address] [facility] Hemoglobin measurementOrdere d By: Jose Raul Pulliam on 09-16-2024 Hemoglobin (Bld) [Mass/Vol] 12.0 g/dL 12.0-15.[address] [facility] MCV (mean corpuscular volume ) determinationOrdered By: Jose Raul Pulliam on 09-16-2024 MCV (RBC) [Entitic vol] 85.2 fL 81-[address] [facility] Mean corpuscular hemoglobin (MCH) determinationOrdered By: Jose Raul Pulliam on 09-16-2024 MCH (RBC) [Entitic mass] 26.5 pg Low 27.0-32.[address] [facility] Mean corpuscular hemoglobin concentration (MCHC) determinationOrdered By: Jose Raul Pulliam on 09-16-2024 MCHC (RBC) [Mass/Vol] 31.1 g/dL Low 32-36 [facility] Mean platelet volume determi nationOrdered By: Jose Raul Pulliam on 09-16-2024 Platelet mean volume (Bld) [Entitic vol] 10.1 fL 6.2-12.[address] [facility] Platelet countOrdered By: Melia Pulliam on 09-16-2024 Platelets (Bld) [#/Vol] 284 10*3/uL 150-[address] [facility] Potassium measurementOrdered By: Jose Raul Pulliam on 09-16-2024 Potassium [Moles/Vol] 3.8 mmol/L 3.5-5.1 [facility] RBC Auto (Bld) [#/Vol]Ordere d By: Jose Raul Pulliam on 09-16-2024 RBC (Bld) [#/Vol] 4.53 10*6/uL 4.2-5.4 [facility] Serum anion gap measurementO rdered By: Jose Raul Pulliam on 09-16-2024 Anion gap [Moles/Vol] 5 mmol/L 5-15 [facility] Serum or plasma calcium milagros urement (mass/volume)Ordered By: Jose Raul Pulliam on 09-16-2024 Calcium [Mass/Vol] 8.8 mg/dL 8.5-10.1 [facility] Serum or plasma creatinine m easurement (mass/volume)Ordered By: Jose Raul Pulliam on 09-16-2024 Creatinine [Mass/Vol] 0.83 mg/dL 0.55-1.02 [facility] Comment on above: The validity of the calculated GFR & GFRAA in patients over 70 years has not been determined. Clinical correlation is essential. Serum or plasma urea nitroge n measurement (mass/volume)Ordered By: Jose Raul Pulliam on 09-16-2024 Urea nitrogen [Mass/Vol] 17 mg/dL 7-[address] [facility] Sodium levelOrdered By: Franky Pulliam on 09-16-2024 Sodium [Moles/Vol] 141 mmol/L 136-145 [facility] White blood cell (WBC) count Ordered By: Jose Raul Pulliam on 09-16-2024 WBC (Bld) [#/Vol] 5.9 10*3/uL 4.4-11.0 [facility] Blood urea nitrogen (BUN)/cr eatinine ratioOrdered By: Jose Raul Pulliam on 08-19-2024 Urea nitrogen/Creatinine [Mass ratio] 18.7 mg/mg 10-[address] [facility] Carbon dioxide measurementOr dered By: Jose Raul Pulliam on 08-19-2024 CO2 [Moles/Vol] 27.0 mmol/L 21.0-32.[address] [facility] Chloride measurementOrdered By: Jose Raul Pulliam on 12-10-2024 Chloride [Moles/Vol] 114 mmol/L High 98-107 [facility] Erythrocyte distribution wid th (RBC) [Ratio]Ordered By: Jose Raul Pulliam on 08-19-2024 Erythrocyte distribution width (RBC) [Entitic vol] 50.5 fL High 35.1-43.[address] [facility] Erythrocyte distribution wid th ratioOrdered By: Jose Raul Pulliam on 08-19-2024 Erythrocyte distribution width (RBC) [Ratio] 15.9 % High 11.6-14.[address] [facility] Estimated glomerular filtrat ion rate (GFR) AmericanOrdered By: Jose Raul Pulliam on 08-19-2024 Estimated GFR (MDRD) Amer 88 mL/min >[address] [facility] Comment on above: GFR Calc Glomerular filtration rate ( GFR) estimationOrdered By: Jose Raul Pulliam on 08-19-2024 Estimated GFR (MDRD) Non-Af Amer 72 mL/min >[address] [facility] Comment on above: Non- GFR Calc Glucose measurementOrdered B y: Jose Raul Pulliam on 08-19-2024 Glucose [Mass/Vol] 96 mg/dL 74-106 [facility] Hematocrit Auto (Bld) [Volum e fraction]Ordered By: Jose Raul Pulliam on 08-19-2024 Hematocrit (Bld) [Volume fraction] 38.3 % 37-[address] [facility] Hemoglobin measurementOrdere d By: Jose Raul Pulliam on 08-19-2024 Hemoglobin (Bld) [Mass/Vol] 11.7 g/dL Low 12.0-15.[address] [facility] MCV (mean corpuscular volume ) determinationOrdered By: Jose Raul Pulliam on 08-19-2024 MCV (RBC) [Entitic vol] 86.5 fL 81-99 [facility] Mean corpuscular hemoglobin (MCH) determinationOrdered By: Jose Raul Pulliam on 08-19-2024 MCH (RBC) [Entitic mass] 26.4 pg Low 27.0-32.[address] [facility] [facility] Mean corpuscular hemoglobin concentration (MCHC) determinationOrdered By: Jose Raul Pulliam on 08-19-2024 MCHC (RBC) [Mass/Vol] 30.5 g/dL Low 32-36 [facility] Mean platelet volume determi nationOrdered By: Jose Raul Pulliam on 08-19-2024 Platelet mean volume (Bld) [Entitic vol] 9.9 fL 6.2-12.[address] [facility] Platelet countOrdered By: Melia Pulliam on 08-19-2024 Platelets (Bld) [#/Vol] 262 10*3/uL 150-[address] [facility] Potassium measurementOrdered By: Jose Raul Pulliam on 08-19-2024 Potassium [Moles/Vol] 3.8 mmol/L 3.5-5.1 [facility] RBC Auto (Bld) [#/Vol]Ordere d By: Jose Raul Pulliam on 08-19-2024 RBC (Bld) [#/Vol] 4.43 10*6/uL 4.2-5.4 [facility] Serum anion gap measurementO rdered By: Jose Raul Pulliam on 08-19-2024 Anion gap [Moles/Vol] 3 mmol/L Low 5-15 [facility] Serum or plasma calcium milagros urement (mass/volume)Ordered By: Jose Raul Pulliam 08-19-2024 Calcium [Mass/Vol] 9.0 mg/dL 8.5-10.1 [facility] Serum or plasma creatinine m easurement (mass/volume)Ordered By: Jose Raul Pulliam on 08-19-2024 Creatinine [Mass/Vol] 0.80 mg/dL 0.55-1.02 [facility] Comment on above: The validity of the calculated GFR & GFRAA in patients over 70 years has not been determined. Clinical correlation is essential. Serum or plasma urea nitroge n measurement (mass/volume)Ordered By: Jose Raul Pulliam on 08-19-2024 Urea nitrogen [Mass/Vol] 15 mg/dL 7-[address] [facility] Sodium levelOrdered By: Franky floresjessenia Heraclio on 08-19-2024 Sodium [Moles/Vol] 143 mmol/L 136-145 [facility] White blood cell (WBC) count Ordered By: Jose Raul Pulliam on 08-19-2024 WBC (Bld) [#/Vol] 7.4 10*3/uL 4.4-11.0 [facility] Basophil percentageOrdered B y: Jose Raul Pulliam on 12-11-2023 Chloride [Moles/Vol] 111 mmol/L 98-107 [facility] Glucose [Mass/Vol] 87 mg/dL 74-106 [facility] Hemoglobin (Bld) [Mass/Vol] 11.5 g/dL 12.0-15.[address] [facility] Potassium [Moles/Vol] 3.9 mmol/L 3.5-5.1 [facility] Comment on above: Slight Hemolysis, Re sult may be falsely increased. Sodium [Moles/Vol] 141 mmol/L 136-145 [facility] WBC (Bld) [#/Vol] 6.1 10*3/uL 4.4-11.0 [facility] Determination of erythrocyte mean corpuscular volume (MCV)Ordered By: Jose Raul Pulliam on 12-11-2023 MCV (RBC) [Entitic vol] 85.8 fL 81-99 [facility] Erythrocyte distribution wid th ratioOrdered By: Jose Raul Pulliam on 12-11-2023 Erythrocyte distribution width (RBC) [Ratio] 16.1 % 11.6-14.[address] [facility] Erythrocyte distribution wid th standard deviationOrdered By: Jose Raul Pulliam on 12-11-2023 Erythrocyte distribution width (RBC) [Entitic vol] 50.8 fL 35.1-43.[address] [facility] Hematocrit Auto (Bld) [Volum e fraction]Ordered By: Jose Raul Pulliam on 12-11-2023 Hematocrit (Bld) [Volume fraction] 36.9 % 37-[address] [facility] Laboratory - Chemistry and C hemistry - challengeOrdered By: Jose Raul Pulliam on 12-11-2023 CO2 [Moles/Vol] 26.0 mmol/L 21.0-32.[address] [facility] Urea nitrogen/Creatinine [Mass ratio] 13.8 mg/mg 10-[address] [facility] Laboratory - Hematology and Cell countsOrdered By: Jose Raul Pulliam on 12-11-2023 MCH (RBC) [Entitic mass] 26.7 pg 27.0-32.[address] [facility] MCHC (RBC) [Mass/Vol] 31.2 g/dL 32-36 [facility] Platelet mean volume (Bld) [Entitic vol] 10.2 fL 6.2-12.[address] [facility] Platelets (Bld) [#/Vol] 269 10*3/uL 150-[address] [facility] No Panel InformationOrdered By: Jose Raul Pulliam on 12-11-2023 Estimated GFR (MDRD) Amer 88 mL/min >[address] [facility] Comment on above: GFR Calc Estimated GFR (MDRD) Non-Af Amer 73 mL/min >[address] [facility] Comment on above: Non- GFR Calc RBC Auto (Bld) [#/Vol]Ordere d By: Jose Raul Pulliam on 12-11-2023 RBC (Bld) [#/Vol] 4.30 10*6/uL 4.2-5.4 [facility] Serum or plasma calcium milagros urement (mass/volume)Ordered By: Jose Raul Pulliam on 12-11-2023 Calcium [Mass/Vol] 8.9 mg/dL 8.5-10.1 [facility] Serum or plasma creatinine m easurement (mass/volume)Ordered By: Jose Raul Pulliam on 12-11-2023 Creatinine [Mass/Vol] 0.80 mg/dL 0.55-1.02 [facility] Comment on above: The validity of the calculated GFR & GFRAA in patients over 70 years has not been determined. Clinical correlation is essential. Serum or plasma urea nitroge n measurement (mass/volume)Ordered By: Jose Raul Pulliam on 12-11-2023 Urea nitrogen [Mass/Vol] 11 mg/dL 7-[address] [facility] Thin prep Papanicolaou smear with manual screeningOrdered By: Jose Raul Pulliam on 12-11-2023 Thin prep Papanicolaou smear with manual screening 4 5-[address] [facility] Basophil percentageOrdered B y: Jose Raul Pulliam on 03-19-2024 Chloride [Moles/Vol] 111 mmol/L 98-107 [facility] Glucose [Mass/Vol] 92 mg/dL 74-106 [facility] Hemoglobin (Bld) [Mass/Vol] 11.8 g/dL 12.0-15.[address] [facility] Potassium [Moles/Vol] 4.2 mmol/L 3.5-5.1 [facility] Sodium [Moles/Vol] 141 mmol/L 136-145 [facility] WBC (Bld) [#/Vol] 5.7 10*3/uL 4.4-11.0 [facility] Determination of erythrocyte mean corpuscular volume (MCV)Ordered By: Jose Raul Pulliam on 11-27-2023 MCV (RBC) [Entitic vol] 85.2 fL 81-[address] [facility] Erythrocyte distribution wid th ratioOrdered By: diandraglenwoodjennifer Vincentjessenia on 11-27-2023 Erythrocyte distribution width (RBC) [Ratio] 15.8 % 11.6-14.[address] [facility] Erythrocyte distribution wid th standard deviationOrdered By: Frankyglenwoodjennifer Pulliam on 11-27-2023 Erythrocyte distribution width (RBC) [Entitic vol] 49.2 fL 35.1-43.[address] [facility] Hematocrit Auto (Bld) [Volum e fraction]Ordered By: Jose Raul Pulliam on 11-27-2023 Hematocrit (Bld) [Volume fraction] 37.3 % 37-[address] [facility] Laboratory - Chemistry and C hemistry - challengeOrdered By: Jose Raul Pulliam on 11-27-2023 CO2 [Moles/Vol] 25.0 mmol/L 21.0-32.[address] [facility] Urea nitrogen/Creatinine [Mass ratio] 15.4 mg/mg 10-[address] [facility] Laboratory - Hematology and Cell countsOrdered By: Jose Raul Pulliam on 11-27-2023 MCH (RBC) [Entitic mass] 26.9 pg 27.0-32.[address] [facility] MCHC (RBC) [Mass/Vol] 31.6 g/dL 32-36 [facility] Platelet mean volume (Bld) [Entitic vol] 9.9 fL 6.2-12.[address] [facility] Platelets (Bld) [#/Vol] 287 10*3/uL 150-[address] [facility] No Panel InformationOrdered By: Jose Raul Pulliam on 11-27-2023 Estimated GFR (MDRD) Amer 90 mL/min >[address] [facility] Comment on above: GFR Calc Estimated GFR (MDRD) Non-Af Amer 75 mL/min >[address] [facility] Comment on above: Non- GFR Calc RBC Auto (Bld) [#/Vol]Ordere d By: Jose Raul Pulliam on 11-27-2023 RBC (Bld) [#/Vol] 4.38 10*6/uL 4.2-5.4 [facility] Serum or plasma calcium milagros urement (mass/volume)Ordered By: Jose Raul Pulliam on 11-27-2023 Calcium [Mass/Vol] 8.8 mg/dL 8.5-10.1 [facility] Serum or plasma creatinine m easurement (mass/volume)Ordered By: Jose Raul Pulliam on 11-27-2023 Creatinine [Mass/Vol] 0.78 mg/dL 0.55-1.02 [facility] Comment on above: The validity of the calculated GFR & GFRAA in patients over 70 years has not been determined. Clinical correlation is essential. Serum or plasma urea nitroge n measurement (mass/volume)Ordered By: Jose Raul Pulliam on 11-27-2023 Urea nitrogen [Mass/Vol] 12 mg/dL 7-[address] [facility] Thin prep Papanicolaou smear with manual screeningOrdered By: Jose Raul Pulliam on 11-27-2023 Thin prep Papanicolaou smear with manual screening 5 5-[address] [facility] Basophil percentageOrdered B y: Jose Raul Pulliam on 11-13-2023 Chloride [Moles/Vol] 112 mmol/L 98-107 [facility] Glucose [Mass/Vol] 81 mg/dL 74-106 [facility] Hemoglobin (Bld) [Mass/Vol] 11.4 g/dL 12.0-15.[address] [facility] Potassium [Moles/Vol] 3.9 mmol/L 3.5-5.1 [facility] Sodium [Moles/Vol] 141 mmol/L 136-145 [facility] WBC (Bld) [#/Vol] 6.6 10*3/uL 4.4-11.0 [facility] Determination of erythrocyte mean corpuscular volume (MCV)Ordered By: Jose Raul Pulliam on 11-13-2023 MCV (RBC) [Entitic vol] 86.3 fL 81-99 [facility] Erythrocyte distribution wid th ratioOrdered By: Jose Raul Pulliam on 11-13-2023 Erythrocyte distribution width (RBC) [Ratio] 15.8 % 11.6-14.[address] [facility] Erythrocyte distribution wid th standard deviationOrdered By: Jose Raul Pulliam on 11-13-2023 Erythrocyte distribution width (RBC) [Entitic vol] 50.0 fL 35.1-43.[address] [facility] Hematocrit Auto (Bld) [Volum e fraction]Ordered By: Jose Raul Pulliam on 11-13-2023 Hematocrit (Bld) [Volume fraction] 37.2 % 37-[address] [facility] Laboratory - Chemistry and C hemistry - challengeOrdered By: Frankyglenwoodjennifer Pulliam on 11-13-2023 CO2 [Moles/Vol] 25.0 mmol/L 21.0-32.[address] [facility] Urea nitrogen/Creatinine [Mass ratio] 15.4 mg/mg 10-[address] [facility] Laboratory - Hematology and Cell countsOrdered By: Jose Raul Pulliam on 11-13-2023 MCH (RBC) [Entitic mass] 26.5 pg 27.0-32.[address] [facility] MCHC (RBC) [Mass/Vol] 30.6 g/dL 32-36 [facility] Platelet mean volume (Bld) [Entitic vol] 9.9 fL 6.2-12.[address] [facility] Platelets (Bld) [#/Vol] 276 10*3/uL 150-[address] [facility] No Panel InformationOrdered By: Jose Raul Pulliam on 11-13-2023 Estimated GFR (MDRD) Amer 90 mL/min >[address] [facility] Comment on above: GFR Calc Estimated GFR (MDRD) Non-Af Amer 75 mL/min >[address] [facility] Comment on above: Non- GFR Calc RBC Auto (Bld) [#/Vol]Ordere d By: Jose Raul Pulliam on 11-13-2023 RBC (Bld) [#/Vol] 4.31 10*6/uL 4.2-5.4 [facility] Serum or plasma calcium milagros urement (mass/volume)Ordered By: Jose Raul Pulliam on 11-13-2023 Calcium [Mass/Vol] 8.5 mg/dL 8.5-10.1 [facility] Serum or plasma creatinine m easurement (mass/volume)Ordered By: Jose Raul Pulliam on 11-13-2023 Creatinine [Mass/Vol] 0.78 mg/dL 0.55-1.02 [facility] Comment on above: The validity of the calculated GFR & GFRAA in patients over 70 years has not been determined. Clinical correlation is essential. Serum or plasma urea nitroge n measurement (mass/volume)Ordered By: Jose Raul Pulliam on 11-13-2023 Urea nitrogen [Mass/Vol] 12 mg/dL 7-[address] [facility] Thin prep Papanicolaou smear with manual screeningOrdered By: Jose Raul Pulliam on 11-13-2023 Thin prep Papanicolaou smear with manual screening 4 5-[address] [facility] Basophil percentageOrdered B y: Jose Raul Pulliam on 10-30-2023 Chloride [Moles/Vol] 114 mmol/L 98-107 [facility] Glucose [Mass/Vol] 107 mg/dL 74-106 [facility] Comment on above: Fasting Glucose resu lt from 100 to 125 mg/dL suggests IMPAIRED HOMEOSTASIS per A.D.A. criteria. Hemoglobin (Bld) [Mass/Vol] 11.9 g/dL 12.0-15.[address] [facility] Potassium [Moles/Vol] 4.3 mmol/L 3.5-5.1 [facility] Comment on above: Moderate Hemolysis, Result may be falsely increased. Sodium [Moles/Vol] 142 mmol/L 136-145 [facility] WBC (Bld) [#/Vol] 6.0 10*3/uL 4.4-11.0 [facility] Determination of erythrocyte mean corpuscular volume (MCV)Ordered By: Jose Raul Pulliam on 10-30-2023 MCV (RBC) [Entitic vol] 85.7 fL 81-99 [facility] Erythrocyte distribution wid th ratioOrdered By: Jose Raul Pulliam on 10-30-2023 Erythrocyte distribution width (RBC) [Ratio] 15.9 % 11.6-14.[address] [facility] Erythrocyte distribution wid th standard deviationOrdered By: Jose Raul Pulliam on 10-30-2023 Erythrocyte distribution width (RBC) [Entitic vol] 49.3 fL 35.1-43.[address] [facility] Hematocrit Auto (Bld) [Volum e fraction]Ordered By: Jose Raul Pulliam on 10-30-2023 Hematocrit (Bld) [Volume fraction] 38.5 % 37-[address] [facility] Laboratory - Chemistry and C hemistry - challengeOrdered By: Jose Raul Pulliam on 10-30-2023 CO2 [Moles/Vol] 24.0 mmol/L 21.0-32.[address] [facility] Urea nitrogen/Creatinine [Mass ratio] 13.1 mg/mg 10-[address] [facility] Laboratory - Hematology and Cell countsOrdered By: Jose Raul Pulliam on 10-30-2023 MCH (RBC) [Entitic mass] 26.5 pg 27.0-32.[address] [facility] MCHC (RBC) [Mass/Vol] 30.9 g/dL 32-36 [facility] Platelet mean volume (Bld) [Entitic vol] 9.9 fL 6.2-12.[address] [facility] Platelets (Bld) [#/Vol] 311 10*3/uL 150-[address] [facility] No Panel InformationOrdered By: Jose Raul Pulliam on 10-30-2023 Estimated GFR (MDRD) Amer 75 mL/min >[address] [facility] Comment on above: GFR Calc Estimated GFR (MDRD) Non-Af Amer 62 mL/min >[address] [facility] Comment on above: Non- GFR Calc RBC Auto (Bld) [#/Vol]Ordere d By: Jose Raul Pulliam on 10-30-2023 RBC (Bld) [#/Vol] 4.49 10*6/uL 4.2-5.4 [facility] Serum or plasma calcium milagros urement (mass/volume)Ordered By: Jose Raul Pulliam on 10-30-2023 Calcium [Mass/Vol] 9.4 mg/dL 8.5-10.1 [facility] Serum or plasma creatinine m easurement (mass/volume)Ordered By: Jose Raul Pulliam on 10-30-2023 Creatinine [Mass/Vol] 0.91 mg/dL 0.55-1.02 [facility] Comment on above: The validity of the calculated GFR & GFRAA in patients over 70 years has not been determined. Clinical correlation is essential. Serum or plasma urea nitroge n measurement (mass/volume)Ordered By: Jose Raul Pulliam on 10-30-2023 Urea nitrogen [Mass/Vol] 12 mg/dL 7-[address] [facility] Thin prep Papanicolaou smear with manual screeningOrdered By: Frankyglenwoodjennifer Pulliam on 10-30-2023 Thin prep Papanicolaou smear with manual screening 4 5-[address] [facility] Basophil percentageOrdered B y: Jose Raul Pulliam on 10-16-2023 Chloride [Moles/Vol] 113 mmol/L 98-107 [facility] Glucose [Mass/Vol] 89 mg/dL 74-106 [facility] Hemoglobin (Bld) [Mass/Vol] 11.4 g/dL 12.0-15.[address] [facility] Potassium [Moles/Vol] 3.9 mmol/L 3.5-5.1 [facility] Sodium [Moles/Vol] 143 mmol/L 136-145 [facility] WBC (Bld) [#/Vol] 6.1 10*3/uL 4.4-11.0 [facility] Determination of erythrocyte mean corpuscular volume (MCV)Ordered By: Jose Raul Pulliam on 10-16-2023 MCV (RBC) [Entitic vol] 86.0 fL 81-[address] [facility] Erythrocyte distribution wid th ratioOrdered By: Jose Raul Pulliam on 10-16-2023 Erythrocyte distribution width (RBC) [Ratio] 15.9 % 11.6-14.[address] [facility] Erythrocyte distribution wid th standard deviationOrdered By: Jose Raul Pulliam on 10-16-2023 Erythrocyte distribution width (RBC) [Entitic vol] 50.1 fL 35.1-43.[address] [facility] Hematocrit Auto (Bld) [Volum e fraction]Ordered By: Jose Raul Pulliam on 10-16-2023 Hematocrit (Bld) [Volume fraction] 36.9 % 37-[address] [facility] Laboratory - Chemistry and C hemistry - challengeOrdered By: Frankyglenwoodjennifer Pulliam on 10-16-2023 CO2 [Moles/Vol] 24.0 mmol/L 21.0-32.[address] [facility] Urea nitrogen/Creatinine [Mass ratio] 16.5 mg/mg 10-[address] [facility] Laboratory - Hematology and Cell countsOrdered By: Jose Raul Pulliam on 10-16-2023 MCH (RBC) [Entitic mass] 26.6 pg 27.0-32.[address] [facility] MCHC (RBC) [Mass/Vol] 30.9 g/dL 32-36 [facility] Platelet mean volume (Bld) [Entitic vol] 9.7 fL 6.2-12.[address] [facility] Platelets (Bld) [#/Vol] 289 10*3/uL 150-[address] [facility] No Panel InformationOrdered By: Jose Raul Pulliam on 10-16-2023 Estimated GFR (MDRD) Amer 98 mL/min >[address] [facility] Comment on above: GFR Calc Estimated GFR (MDRD) Non-Af Amer 81 mL/min >[address] [facility] Comment on above: Non- GFR Calc RBC Auto (Bld) [#/Vol]Ordere d By: Jose Raul Pulliam on 10-16-2023 RBC (Bld) [#/Vol] 4.29 10*6/uL 4.2-5.4 [facility] Serum or plasma calcium milagros urement (mass/volume)Ordered By: Jose Raul Pulliam on 10-16-2023 Calcium [Mass/Vol] 9.0 mg/dL 8.5-10.1 [facility] Serum or plasma creatinine m easurement (mass/volume)Ordered By: Jose Raul Pulliam on 10-16-2023 Creatinine [Mass/Vol] 0.73 mg/dL 0.55-1.02 [facility] Comment on above: The validity of the calculated GFR & GFRAA in patients over 70 years has not been determined. Clinical correlation is essential. Serum or plasma urea nitroge n measurement (mass/volume)Ordered By: Jose Raul Pulliam on 10-16-2023 Urea nitrogen [Mass/Vol] 12 mg/dL 7-[address] [facility] Thin prep Papanicolaou smear with manual screeningOrdered By: JoseR aul Pulliam on 10-16-2023 Thin prep Papanicolaou smear with manual screening 6 5-[address] [facility] Basophil percentageOrdered B y: Jose Raul Pulliam on 10-02-2023 Chloride [Moles/Vol] 110 mmol/L 98-107 [facility] Glucose [Mass/Vol] 88 mg/dL 74-106 [facility] Hemoglobin (Bld) [Mass/Vol] 12.3 g/dL 12.0-15.[address] [facility] Potassium [Moles/Vol] 4.2 mmol/L 3.5-5.1 [facility] Sodium [Moles/Vol] 139 mmol/L 136-145 [facility] WBC (Bld) [#/Vol] 7.6 10*3/uL 4.4-11.0 [facility] Determination of erythrocyte mean corpuscular volume (MCV)Ordered By: Jose Raul Pulliam on 10-02-2023 MCV (RBC) [Entitic vol] 86.3 fL 81-99 [facility] Erythrocyte distribution wid th ratioOrdered By: Jose Raul Pulliam on 10-02-2023 Erythrocyte distribution width (RBC) [Ratio] 15.9 % 11.6-14.[address] [facility] Erythrocyte distribution wid th standard deviationOrdered By: Jose Raul Pulliam on 10-02-2023 Erythrocyte distribution width (RBC) [Entitic vol] 50.3 fL 35.1-43.[address] [facility] Hematocrit Auto (Bld) [Volum e fraction]Ordered By: Jose Raul Pulliam on 10-02-2023 Hematocrit (Bld) [Volume fraction] 40.2 % 37-[address] [facility] Laboratory - Chemistry and C hemistry - challengeOrdered By: Jose Raul Pulliam on 10-02-2023 CO2 [Moles/Vol] 24.0 mmol/L 21.0-32.[address] [facility] Urea nitrogen/Creatinine [Mass ratio] 15.3 mg/mg 10-[address] [facility] Laboratory - Hematology and Cell countsOrdered By: Jose Raul Pulliam on 10-02-2023 MCH (RBC) [Entitic mass] 26.4 pg 27.0-32.[address] [facility] MCHC (RBC) [Mass/Vol] 30.6 g/dL 32-36 [facility] Platelets (Bld) [#/Vol] 311 10*3/uL 150-[address] [facility] No Panel InformationOrdered By: Jose Raul Pulliam on 10-02-2023 Estimated GFR (MDRD) Amer 90 mL/min >[address] [facility] Comment on above: GFR Calc Estimated GFR (MDRD) Non-Af Amer 74 mL/min >[address] [facility] Comment on above: Non- GFR Calc Platelet mean volume Inocencio-Ec ker (Bld) [Entitic vol]Ordered By: Jose Raul Pulliam on 10-02-2023 Platelet mean volume (Bld) [Entitic vol] 9.9 fL 6.2-12.[address] [facility] RBC Auto (Bld) [#/Vol]Ordere d By: Jose Raul Pulliam on 10-02-2023 RBC (Bld) [#/Vol] 4.66 10*6/uL 4.2-5.4 [facility] Serum or plasma calcium milagros urement (mass/volume)Ordered By: Jose Raul Pulliam on 10-02-2023 Calcium [Mass/Vol] 9.1 mg/dL 8.5-10.1 [facility] Serum or plasma creatinine m easurement (mass/volume)Ordered By: Jose Raul Pulliam on 10-02-2023 Creatinine [Mass/Vol] 0.78 mg/dL 0.55-1.02 [facility] Comment on above: The validity of the calculated GFR & GFRAA in patients over 70 years has not been determined. Clinical correlation is essential. Serum or plasma urea nitroge n measurement (mass/volume)Ordered By: Jose Raul Pulliam on 10-02-2023 Urea nitrogen [Mass/Vol] 12 mg/dL 7-[address] [facility] Thin prep Papanicolaou smear with manual screeningOrdered By: Jose Raul Pulliam on 10-02-2023 Thin prep Papanicolaou smear with manual screening 5 5-[address] [facility] Basophil percentageOrdered B y: Jose Raul Pulliam on 09-18-2023 Chloride [Moles/Vol] 111 mmol/L 98-107 [facility] Glucose [Mass/Vol] 90 mg/dL 74-106 [facility] Potassium [Moles/Vol] 4.2 mmol/L 3.5-5.1 [facility] Sodium [Moles/Vol] 141 mmol/L 136-145 [facility] WBC (Bld) [#/Vol] 7.5 10*3/uL 4.4-11.0 [facility] Blood erythrocytes count (nu mber/volume)Ordered By: Jose Raul Pulliam on 09-18-2023 RBC (Bld) [#/Vol] 4.37 10*6/uL 4.2-5.4 [facility] Blood hemoglobin measurement (mass/volume)Ordered By: Jose Raul Pulliam on 09-18-2023 Hemoglobin (Bld) [Mass/Vol] 11.4 g/dL 12.0-15.[address] [facility] Blood platelet mean volumeOr dered By: Jose Raul Pulliam on 09-18-2023 Platelet mean volume (Bld) [Entitic vol] 9.9 fL 6.2-12.[address] [facility] Determination of erythrocyte mean corpuscular volume (MCV)Ordered By: Jose Raul Pulliam on 09-18-2023 MCV (RBC) [Entitic vol] 85.8 fL 81-99 [facility] Hematocrit Auto (Bld) [Volum e fraction]Ordered By: Jose Raul Pulliam on 09-18-2023 Hematocrit (Bld) [Volume fraction] 37.5 % 37-[address] [facility] Laboratory - Chemistry and C hemistry - challengeOrdered By: Jose Raul Pulliam on 09-18-2023 CO2 [Moles/Vol] 26.0 mmol/L 21.0-32.[address] [facility] Urea nitrogen/Creatinine [Mass ratio] 16.6 mg/mg 10-[address] [facility] Laboratory - Hematology and Cell countsOrdered By: Jose Raul Pulliam on 09-18-2023 Erythrocyte distribution width (RBC) [Entitic vol] 49.8 fL 35.1-43.[address] [facility] Erythrocyte distribution width (RBC) [Ratio] 15.8 % 11.6-14.[address] [facility] MCH (RBC) [Entitic mass] 26.1 pg 27.0-32.[address] [facility] MCHC Auto (RBC) [Mass/Vol]Or dered By: Jose Raul Pulliam on 09-18-2023 MCHC (RBC) [Mass/Vol] 30.4 g/dL 32-36 [facility] No Panel InformationOrdered By: Jose Raul Pulliam on 09-18-2023 Estimated GFR (MDRD) Amer 90 mL/min >[address] [facility] Comment on above: GFR Calc Estimated GFR (MDRD) Non-Af Amer 74 mL/min >[address] [facility] Comment on above: Non- GFR Calc Platelets bldOrdered By: Sam Pulilam on 09-18-2023 Platelets (Bld) [#/Vol] 276 10*3/uL 150-[address] [facility] Serum or plasma calcium milagros urement (mass/volume)Ordered By: Jose Raul Pulliam on 09-18-2023 Calcium [Mass/Vol] 8.7 mg/dL 8.5-10.1 [facility] Serum or plasma creatinine m easurement (mass/volume)Ordered By: Jose Raul Pulliam on 09-18-2023 Creatinine [Mass/Vol] 0.78 mg/dL 0.55-1.02 [facility] Comment on above: The validity of the calculated GFR & GFRAA in patients over 70 years has not been determined. Clinical correlation is essential. Serum or plasma urea nitroge n measurement (mass/volume)Ordered By: Jose Raul Pulliam on 09-18-2023 Urea nitrogen [Mass/Vol] 13 mg/dL 7-[address] [facility] Thin prep Papanicolaou smear with manual screeningOrdered By: Jose Raul Pulliam on 09-18-2023 Thin prep Papanicolaou smear with manual screening 4 5-[address] [facility] Basophil percentageOrdered B y: Jose Raul Pulliam on 09-04-2023 Chloride [Moles/Vol] 112 mmol/L 98-107 [facility] Glucose [Mass/Vol] 91 mg/dL 74-106 [facility] Potassium [Moles/Vol] 3.9 mmol/L 3.5-5.1 [facility] Sodium [Moles/Vol] 141 mmol/L 136-145 [facility] WBC (Bld) [#/Vol] 6.3 10*3/uL 4.4-11.0 [facility] Blood erythrocytes count (nu mber/volume)Ordered By: Jose Raul Pulliam on 09-04-2023 RBC (Bld) [#/Vol] 4.18 10*6/uL 4.2-5.4 [facility] Blood hemoglobin measurement (mass/volume)Ordered By: Jose Raul Pulliam on 09-04-2023 Hemoglobin (Bld) [Mass/Vol] 11.1 g/dL 12.0-15.[address] [facility] Blood platelet mean volumeOr dered By: Jose Raul Pulliam on 09-04-2023 Platelet mean volume (Bld) [Entitic vol] 10.1 fL 6.2-12.[address] [facility] Determination of erythrocyte mean corpuscular volume (MCV)Ordered By: Jose Raul Pulliam on 09-04-2023 MCV (RBC) [Entitic vol] 88.3 fL 81-99 [facility] Hematocrit Auto (Bld) [Volum e fraction]Ordered By: Jose Raul Pulliam on 09-04-2023 Hematocrit (Bld) [Volume fraction] 36.9 % 37-[address] [facility] Laboratory - Chemistry and C hemistry - challengeOrdered By: Jose Raul Pulliam on 09-04-2023 CO2 [Moles/Vol] 26.0 mmol/L 21.0-32.[address] [facility] Urea nitrogen/Creatinine [Mass ratio] 18.6 mg/mg 10-[address] [facility] Laboratory - Hematology and Cell countsOrdered By: Jose Raul Pulliam on 09-04-2023 Erythrocyte distribution width (RBC) [Entitic vol] 52.0 fL 35.1-43.[address] [facility] Erythrocyte distribution width (RBC) [Ratio] 16.0 % 11.6-14.[address] [facility] MCH (RBC) [Entitic mass] 26.6 pg 27.0-32.[address] [facility] MCHC Auto (RBC) [Mass/Vol]Or dered By: Jose Raul Pulliam on 09-04-2023 MCHC (RBC) [Mass/Vol] 30.1 g/dL 32-36 [facility] No Panel InformationOrdered By: Jose Raul Pulliam on 09-04-2023 Estimated GFR (MDRD) Amer 87 mL/min >[address] [facility] Comment on above: GFR Calc Estimated GFR (MDRD) Non-Af Amer 72 mL/min >[address] [facility] Comment on above: Non- GFR Calc Platelets bldOrdered By: Sam Pulliam on 09-04-2023 Platelets (Bld) [#/Vol] 255 10*3/uL 150-[address] [facility] Serum or plasma calcium milagros urement (mass/volume)Ordered By: Jose Raul Pulliam on 09-04-2023 Calcium [Mass/Vol] 8.7 mg/dL 8.5-10.1 [facility] Serum or plasma creatinine m easurement (mass/volume)Ordered By: Jose Raul Pulliam on 09-04-2023 Creatinine [Mass/Vol] 0.81 mg/dL 0.55-1.02 [facility] Comment on above: The validity of the calculated GFR & GFRAA in patients over 70 years has not been determined. Clinical correlation is essential. Serum or plasma urea nitroge n measurement (mass/volume)Ordered By: Jose Raul Pulliam on 09-04-2023 Urea nitrogen [Mass/Vol] 15 mg/dL 7-[address] [facility] Thin prep Papanicolaou smear with manual screeningOrdered By: Jose Raul Pulliam on 09-04-2023 Thin prep Papanicolaou smear with manual screening 3 5-[address] [facility] Basophil percentageOrdered B y: Jose Raul Pulliam on 08-21-2023 Chloride [Moles/Vol] 112 mmol/L 98-107 [facility] Glucose [Mass/Vol] 95 mg/dL 74-106 [facility] Potassium [Moles/Vol] 4.4 mmol/L 3.5-5.1 [facility] Sodium [Moles/Vol] 142 mmol/L 136-145 [facility] WBC (Bld) [#/Vol] 6.5 10*3/uL 4.4-11.0 [facility] Blood erythrocytes count (nu mber/volume)Ordered By: Jose Raul Pulliam on 08-21-2023 RBC (Bld) [#/Vol] 4.39 10*6/uL 4.2-5.4 [facility] Blood hemoglobin measurement (mass/volume)Ordered By: Jose Raul Pulliam on 08-21-2023 Hemoglobin (Bld) [Mass/Vol] 11.7 g/dL 12.0-15.[address] [facility] Blood platelet mean volumeOr dered By: Jose Raul Pulliam on 08-21-2023 Platelet mean volume (Bld) [Entitic vol] 9.7 fL 6.2-12.[address] [facility] Determination of erythrocyte mean corpuscular volume (MCV)Ordered By: Jose Raul Pulliam on 08-21-2023 MCV (RBC) [Entitic vol] 86.6 fL 81-99 [facility] Hematocrit Auto (Bld) [Volum e fraction]Ordered By: Jose Raul Pulliam on 08-21-2023 Hematocrit (Bld) [Volume fraction] 38.0 % 37-[address] [facility] Laboratory - Chemistry and C hemistry - challengeOrdered By: Jose Raul Pulliam on 08-21-2023 CO2 [Moles/Vol] 26.0 mmol/L 21.0-32.[address] [facility] Urea nitrogen/Creatinine [Mass ratio] 18.7 mg/mg 10-[address] [facility] Laboratory - Hematology and Cell countsOrdered By: Jose Raul Pulliam on 08-21-2023 Erythrocyte distribution width (RBC) [Entitic vol] 50.3 fL 35.1-43.[address] [facility] Erythrocyte distribution width (RBC) [Ratio] 15.9 % 11.6-14.[address] [facility] MCH (RBC) [Entitic mass] 26.7 pg 27.0-32.[address] [facility] MCHC Auto (RBC) [Mass/Vol]Or dered By: Jose Raul Pulliam on 08-21-2023 MCHC (RBC) [Mass/Vol] 30.8 g/dL - [facility] No Panel InformationOrdered By: Jose Raul Pulliam on 08-21-2023 Estimated GFR (MDRD) Amer 87 mL/min >[address] [facility] Comment on above: GFR Calc Estimated GFR (MDRD) Non-Af Amer 72 mL/min >[address] [facility] Comment on above: Non- GFR Calc Platelets bldOrdered By: Sam Pulliam on 08-21-2023 Platelets (Bld) [#/Vol] 290 10*3/uL 150-[address] [facility] Serum or plasma calcium milagros urement (mass/volume)Ordered By: Jose Raul Pulliam on 08-21-2023 Calcium [Mass/Vol] 8.9 mg/dL 8.5-10.1 [facility] Serum or plasma creatinine m easurement (mass/volume)Ordered By: Jose Raul Pulliam on 08-21-2023 Creatinine [Mass/Vol] 0.80 mg/dL 0.55-1.02 [facility] Comment on above: The validity of the calculated GFR & GFRAA in patients over 70 years has not been determined. Clinical correlation is essential. Serum or plasma urea nitroge n measurement (mass/volume)Ordered By: Jose Raul Pulliam on 08-21-2023 Urea nitrogen [Mass/Vol] 15 mg/dL 7-[address] [facility] Thin prep Papanicolaou smear with manual screeningOrdered By: Jose Raul Pulliam on 08-21-2023 Thin prep Papanicolaou smear with manual screening 4 5-[address] [facility] Basophil percentageOrdered B y: Jose Raul Pulliam on 08-07-2023 Chloride [Moles/Vol] 112 mmol/L 98-107 [facility] Glucose [Mass/Vol] 90 mg/dL 74-106 [facility] Potassium [Moles/Vol] 3.8 mmol/L 3.5-5.1 [facility] Sodium [Moles/Vol] 142 mmol/L 136-145 [facility] WBC (Bld) [#/Vol] 6.4 10*3/uL 4.4-11.0 [facility] Blood erythrocytes count (nu mber/volume)Ordered By: Jose Raul Pulliam on 08-07-2023 RBC (Bld) [#/Vol] 4.26 10*6/uL 4.2-5.4 [facility] Blood hemoglobin measurement (mass/volume)Ordered By: Jose Raul Pulliam on 08-07-2023 Hemoglobin (Bld) [Mass/Vol] 11.2 g/dL 12.0-15.[address] [facility] Blood platelet mean volumeOr dered By: Jose Raul Pulliam on 08-07-2023 Platelet mean volume (Bld) [Entitic vol] 9.7 fL 6.2-12.[address] [facility] Determination of erythrocyte mean corpuscular volume (MCV)Ordered By: Jose Raul Pulliam on 08-07-2023 MCV (RBC) [Entitic vol] 87.8 fL 81-99 [facility] Hematocrit Auto (Bld) [Volum e fraction]Ordered By: Jose Raul Pulliam on 08-07-2023 Hematocrit (Bld) [Volume fraction] 37.4 % 37-[address] [facility] Laboratory - Chemistry and C hemistry - challengeOrdered By: Jose Raul Pulliam on 08-07-2023 CO2 [Moles/Vol] 26.0 mmol/L 21.0-32.[address] [facility] Urea nitrogen/Creatinine [Mass ratio] 21.0 mg/mg 10-[address] [facility] Laboratory - Hematology and Cell countsOrdered By: Jose Raul Pulliam on 08-07-2023 Erythrocyte distribution width (RBC) [Entitic vol] 50.5 fL 35.1-43.[address] [facility] Erythrocyte distribution width (RBC) [Ratio] 15.8 % 11.6-14.[address] [facility] MCH (RBC) [Entitic mass] 26.3 pg 27.0-32.[address] [facility] MCHC Auto (RBC) [Mass/Vol]Or dered By: Jose Raul Pulliam on 08-07-2023 MCHC (RBC) [Mass/Vol] 29.9 g/dL 32-36 [facility] No Panel InformationOrdered By: Jose Raul Pulliam on 08-07-2023 Estimated GFR (MDRD) Amer 87 mL/min >[address] [facility] Comment on above: GFR Calc Estimated GFR (MDRD) Non-Af Amer 72 mL/min >[address] [facility] Comment on above: Non- GFR Calc Platelets bldOrdered By: Sam Pulliam on 08-07-2023 Platelets (Bld) [#/Vol] 279 10*3/uL 150-[address] [facility] Serum or plasma calcium milagros urement (mass/volume)Ordered By: Jose Raul Pulliam on 08-07-2023 Calcium [Mass/Vol] 8.6 mg/dL 8.5-10.1 [facility] Serum or plasma creatinine m easurement (mass/volume)Ordered By: Jose Raul Pulliam on 08-07-2023 Creatinine [Mass/Vol] 0.81 mg/dL 0.55-1.02 [facility] Comment on above: The validity of the calculated GFR & GFRAA in patients over 70 years has not been determined. Clinical correlation is essential. Serum or plasma urea nitroge n measurement (mass/volume)Ordered By: Jose Raul Pulliam on 08-07-2023 Urea nitrogen [Mass/Vol] 17 mg/dL 7-[address] [facility] Thin prep Papanicolaou smear with manual screeningOrdered By: Jose Raul Pulliam on 08-07-2023 Thin prep Papanicolaou smear with manual screening 4 5-[address] [facility] Basophil percentageOrdered B y: Jose Raul Pulliam on 07-23-2023 Chloride [Moles/Vol] 111 mmol/L 98-107 [facility] Glucose [Mass/Vol] 80 mg/dL 74-106 [facility] Potassium [Moles/Vol] 3.8 mmol/L 3.5-5.1 [facility] Sodium [Moles/Vol] 141 mmol/L 136-145 [facility] WBC (Bld) [#/Vol] 5.8 10*3/uL 4.4-11.0 [facility] Blood erythrocytes count (nu mber/volume)Ordered By: Jose Raul Pulliam on 07-23-2023 RBC (Bld) [#/Vol] 4.05 10*6/uL 4.2-5.4 [facility] Blood hemoglobin measurement (mass/volume)Ordered By: Jose Raul Pulliam on 07-23-2023 Hemoglobin (Bld) [Mass/Vol] 10.9 g/dL 12.0-15.[address] [facility] Blood platelet mean volumeOr dered By: Jose Raul Pulliam on 07-23-2023 Platelet mean volume (Bld) [Entitic vol] 9.8 fL 6.2-12.[address] [facility] Determination of erythrocyte mean corpuscular volume (MCV)Ordered By: Jose Raul Pulliam on 07-23-2023 MCV (RBC) [Entitic vol] 88.1 fL 81-99 [facility] Hematocrit Auto (Bld) [Volum e fraction]Ordered By: Jose Raul Pulliam on 07-23-2023 Hematocrit (Bld) [Volume fraction] 35.7 % 37-[address] [facility] Laboratory - Chemistry and C hemistry - challengeOrdered By: Jose Raul Pulliam on 07-23-2023 CO2 [Moles/Vol] 24.0 mmol/L 21.0-32.[address] [facility] Urea nitrogen/Creatinine [Mass ratio] 19.1 mg/mg 10-[address] [facility] Laboratory - Hematology and Cell countsOrdered By: Jose Raul Pulliam on 07-23-2023 Erythrocyte distribution width (RBC) [Entitic vol] 51.1 fL 35.1-43.[address] [facility] Erythrocyte distribution width (RBC) [Ratio] 15.8 % 11.6-14.[address] [facility] MCH (RBC) [Entitic mass] 26.9 pg 27.0-32.[address] [facility] MCHC Auto (RBC) [Mass/Vol]Or dered By: Jose Raul Pulliam on 07-23-2023 MCHC (RBC) [Mass/Vol] 30.5 g/dL 32-36 [facility] No Panel InformationOrdered By: Jose Raul Pulliam on 07-23-2023 Estimated GFR (MDRD) Amer 97 mL/min >[address] [facility] Comment on above: GFR Calc Estimated GFR (MDRD) Non-Af Amer 80 mL/min >[address] [facility] Comment on above: Non- GFR Calc Platelets bldOrdered By: Sam Pulliam on 07-23-2023 Platelets (Bld) [#/Vol] 240 10*3/uL 150-[address] [facility] Serum or plasma calcium milagros urement (mass/volume)Ordered By: Jose Raul Pulliam on 07-23-2023 Calcium [Mass/Vol] 8.3 mg/dL 8.5-10.1 [facility] Serum or plasma creatinine m easurement (mass/volume)Ordered By: Jose Raul Pulliam on 07-23-2023 Creatinine [Mass/Vol] 0.73 mg/dL 0.55-1.02 [facility] Comment on above: The validity of the calculated GFR & GFRAA in patients over 70 years has not been determined. Clinical correlation is essential. Serum or plasma urea nitroge n measurement (mass/volume)Ordered By: Jose Raul Pulliam on 07-23-2023 Urea nitrogen [Mass/Vol] 14 mg/dL 7-[address] [facility] Thin prep Papanicolaou smear with manual screeningOrdered By: Jose Raul Pulliam on 07-23-2023 Thin prep Papanicolaou smear with manual screening 6 5-[address] [facility] Basophil percentageOrdered B y: Jose Raul Pulliam on 07-09-2023 Chloride [Moles/Vol] 111 mmol/L 98-107 [facility] Glucose [Mass/Vol] 93 mg/dL 74-106 [facility] Potassium [Moles/Vol] 4.1 mmol/L 3.5-5.1 [facility] Sodium [Moles/Vol] 142 mmol/L 136-145 [facility] WBC (Bld) [#/Vol] 5.5 10*3/uL 4.4-11.0 [facility] Blood erythrocytes count (nu mber/volume)Ordered By: Jose Raul Pulliam on 07-09-2023 RBC (Bld) [#/Vol] 4.31 10*6/uL 4.2-5.4 [facility] Blood hemoglobin measurement (mass/volume)Ordered By: Jose Raul Pulliam on 07-09-2023 Hemoglobin (Bld) [Mass/Vol] 11.5 g/dL 12.0-15.[address] [facility] Blood platelet mean volumeOr dered By: Jose Raul Pulliam on 07-09-2023 Platelet mean volume (Bld) [Entitic vol] 9.3 fL 6.2-12.[address] [facility] Determination of erythrocyte mean corpuscular volume (MCV)Ordered By: Jose Ralu Pulliam on 07-09-2023 MCV (RBC) [Entitic vol] 87.0 fL 81-99 [facility] Hematocrit Auto (Bld) [Volum e fraction]Ordered By: Jose Raul Pulliam on 07-09-2023 Hematocrit (Bld) [Volume fraction] 37.5 % 37-[address] [facility] Laboratory - Chemistry and C hemistry - challengeOrdered By: Jose Raul Pulliam on 07-09-2023 CO2 [Moles/Vol] 25.0 mmol/L 21.0-32.[address] [facility] Urea nitrogen/Creatinine [Mass ratio] 21.9 mg/mg 10-[address] [facility] Laboratory - Hematology and Cell countsOrdered By: Jose Raul Pulliam on 07-09-2023 Erythrocyte distribution width (RBC) [Entitic vol] 50.3 fL 35.1-43.[address] [facility] Erythrocyte distribution width (RBC) [Ratio] 15.7 % 11.6-14.[address] [facility] MCH (RBC) [Entitic mass] 26.7 pg 27.0-32.[address] [facility] MCHC Auto (RBC) [Mass/Vol]Or dered By: Jose Raul Pulliam on 07-09-2023 MCHC (RBC) [Mass/Vol] 30.7 g/dL 32-36 [facility] No Panel InformationOrdered By: Jose Raul Pulliam on 07-09-2023 Estimated GFR (MDRD) Amer 85 mL/min >[address] [facility] Comment on above: GFR Calc Estimated GFR (MDRD) Non-Af Amer 70 mL/min >[address] [facility] Comment on above: Non- GFR Calc Platelets bldOrdered By: Sam Pulliam on 07-09-2023 Platelets (Bld) [#/Vol] 313 10*3/uL 150-[address] [facility] Serum or plasma calcium milagros urement (mass/volume)Ordered By: Jose Raul Pulliam on 07-09-2023 Calcium [Mass/Vol] 8.7 mg/dL 8.5-10.1 [facility] Serum or plasma creatinine m easurement (mass/volume)Ordered By: Jose Raul Pulliam on 07-09-2023 Creatinine [Mass/Vol] 0.82 mg/dL 0.55-1.02 [facility] Comment on above: The validity of the calculated GFR & GFRAA in patients over 70 years has not been determined. Clinical correlation is essential. Serum or plasma urea nitroge n measurement (mass/volume)Ordered By: Jose Raul Pulliam on 07-09-2023 Urea nitrogen [Mass/Vol] 18 mg/dL 7-[address] [facility] Thin prep Papanicolaou smear with manual screeningOrdered By: Jose Raul Pulliam on 07-09-2023 Thin prep Papanicolaou smear with manual screening 6 5-[address] [facility] Absolute lymphocyte countOrd ered By: Jose Raul Pulliam on 06-25-2023 Lymphocytes Auto (Unsp spec) [#/Vol] 1.61 10*3/uL 0.83-4.[address] [facility] Basophil percentageOrdered B y: Jose Raul Pulliam on 06-25-2023 Basophils/100 WBC (Bld) 0.4 % 0-1 [facility] Chloride [Moles/Vol] 111 mmol/L 98-107 [facility] Eosinophils/100 WBC (Bld) 2.8 % 0-[address] [facility] Glucose [Mass/Vol] 102 mg/dL 74-106 [facility] Comment on above: Fasting Glucose resu lt from 100 to 125 mg/dL suggests IMPAIRED HOMEOSTASIS per A.D.A. criteria. Neutrophils (Bld) [#/Vol] 4.6 10*3/uL 2.0-7.[address] [facility] Neutrophils/100 WBC (Bld) 64.1 % 47-[address] [facility] Potassium [Moles/Vol] 4.0 mmol/L 3.5-5.1 [facility] Sodium [Moles/Vol] 141 mmol/L 136-145 [facility] WBC (Bld) [#/Vol] 7.2 10*3/uL 4.4-11.0 [facility] Blood erythrocytes count (nu mber/volume)Ordered By: Jose Raul Pulliam on 06-25-2023 RBC (Bld) [#/Vol] 4.23 10*6/uL 4.2-5.4 [facility] Blood hemoglobin measurement (mass/volume)Ordered By: Jose Raul Pulliam on 06-25-2023 Hemoglobin (Bld) [Mass/Vol] 11.4 g/dL 12.0-15.[address] [facility] Blood lymphocytes/100 leukoc ytesOrdered By: Jose Raul Pulliam on 06-25-2023 Lymphocytes/100 WBC (Bld) 22.4 % 19-[address] [facility] Blood monocytes/100 leukocyt esOrdered By: Jose Raul Pulliam on 06-25-2023 Monocytes/100 WBC (Bld) 9.7 % 0-[address] [facility] Blood platelet mean volumeOr dered By: Jose Raul Pulliam on 06-25-2023 Platelet mean volume (Bld) [Entitic vol] 9.7 fL 6.2-12.[address] [facility] Determination of erythrocyte mean corpuscular volume (MCV)Ordered By: Jose Raul Pulliam on 06-25-2023 MCV (RBC) [Entitic vol] 87.9 fL 81-99 [facility] Hematocrit Auto (Bld) [Volum e fraction]Ordered By: Jose Raul Pulliam on 06-25-2023 Hematocrit (Bld) [Volume fraction] 37.2 % 37-[address] [facility] Laboratory - Chemistry and C hemistry - challengeOrdered By: Jose Raul Pulliam on 06-25-2023 CO2 [Moles/Vol] 24.0 mmol/L 21.0-32.[address] [facility] Urea nitrogen/Creatinine [Mass ratio] 19.6 mg/mg 10-[address] [facility] Laboratory - Hematology and Cell countsOrdered By: Jose Raul Pulliam on 06-25-2023 Erythrocyte distribution width (RBC) [Entitic vol] 51.2 fL 35.1-43.[address] [facility] Erythrocyte distribution width (RBC) [Ratio] 15.7 % 11.6-14.[address] [facility] Immature granulocytes/100 WBC (Bld) 0.600 % 0.0-0.[address] [facility] Comment on above: IG% - Immature Granu locytes (promyelocytes, myelocytes and metamyelocytes) > 1% indicates that a LEFT SHIFT is Present. MCH (RBC) [Entitic mass] 27.0 pg 27.0-32.[address] [facility] Nucleated RBC/100 WBC (Bld) [Ratio] 0 % 0-[address] [facility] MCHC Auto (RBC) [Mass/Vol]Or dered By: Jose Raul Pulliam on 06-25-2023 MCHC (RBC) [Mass/Vol] 30.6 g/dL 32-36 [facility] No Panel InformationOrdered By: Jose Raul Pulliam on 06-25-2023 Estimated GFR (MDRD) Amer 93 mL/min >[address] [facility] Comment on above: GFR Calc Estimated GFR (MDRD) Non-Af Amer 76 mL/min >[address] [facility] Comment on above: Non- GFR Calc Platelets bldOrdered By: Sam Pulliam on 06-25-2023 Platelets (Bld) [#/Vol] 269 10*3/uL 150-[address] [facility] Serum or plasma calcium milagros urement (mass/volume)Ordered By: Jose Raul Pulliam on 06-25-2023 Calcium [Mass/Vol] 8.4 mg/dL 8.5-10.1 [facility] Serum or plasma creatinine m easurement (mass/volume)Ordered By: Jose Raul Pulliam on 06-25-2023 Creatinine [Mass/Vol] 0.76 mg/dL 0.55-1.02 [facility] Comment on above: The validity of the calculated GFR & GFRAA in patients over 70 years has not been determined. Clinical correlation is essential. Serum or plasma urea nitroge n measurement (mass/volume)Ordered By: Jose Raul Pulliam on 06-25-2023 Urea nitrogen [Mass/Vol] 15 mg/dL 7-[address] [facility] Thin prep Papanicolaou smear with manual screeningOrdered By: Jose Raul Pulliam on 06-25-2023 Thin prep Papanicolaou smear with manual screening 6 5-[address] [facility] Basophil percentageOrdered B y: Jos eRaul Pulliam on 06-11-2023 Chloride [Moles/Vol] 109 mmol/L 98-107 [facility] Glucose [Mass/Vol] 85 mg/dL 74-106 [facility] Potassium [Moles/Vol] 4.1 mmol/L 3.5-5.1 [facility] Sodium [Moles/Vol] 140 mmol/L 136-145 [facility] WBC (Bld) [#/Vol] 6.7 10*3/uL 4.4-11.0 [facility] Blood erythrocytes count (nu mber/volume)Ordered By: Jose Raul Pulliam on 06-11-2023 RBC (Bld) [#/Vol] 4.09 10*6/uL 4.2-5.4 [facility] Blood hemoglobin measurement (mass/volume)Ordered By: Jose Raul Pulliam on 06-11-2023 Hemoglobin (Bld) [Mass/Vol] 11.1 g/dL 12.0-15.[address] [facility] Blood platelet mean volumeOr dered By: Jose Raul Pulliam on 06-11-2023 Platelet mean volume (Bld) [Entitic vol] 10.0 fL 6.2-12.[address] [facility] Determination of erythrocyte mean corpuscular volume (MCV)Ordered By: Jose Raul Pulliam on 06-11-2023 MCV (RBC) [Entitic vol] 88.3 fL 81-99 [facility] Hematocrit Auto (Bld) [Volum e fraction]Ordered By: Jose Raul Pulliam on 06-11-2023 Hematocrit (Bld) [Volume fraction] 36.1 % 37-[address] [facility] Laboratory - Chemistry and C hemistry - challengeOrdered By: Jose Raul Pulliam on 06-11-2023 CO2 [Moles/Vol] 25.0 mmol/L 21.0-32.[address] [facility] Urea nitrogen/Creatinine [Mass ratio] 17.9 mg/mg 10-[address] [facility] Laboratory - Hematology and Cell countsOrdered By: Jose Raul Pulliam on 06-11-2023 Erythrocyte distribution width (RBC) [Entitic vol] 50.2 fL 35.1-43.[address] [facility] Erythrocyte distribution width (RBC) [Ratio] 15.5 % 11.6-14.[address] [facility] MCH (RBC) [Entitic mass] 27.1 pg 27.0-32.[address] [facility] MCHC Auto (RBC) [Mass/Vol]Or dered By: Jose Raul Pulliam on 06-11-2023 MCHC (RBC) [Mass/Vol] 30.7 g/dL 32-36 [facility] No Panel InformationOrdered By: Jose Raul Pulliam on 06-11-2023 Estimated GFR (MDRD) Amer 98 mL/min >[address] [facility] Comment on above: GFR Calc Estimated GFR (MDRD) Non-Af Amer 81 mL/min >[address] [facility] Comment on above: Non- GFR Calc Platelets bldOrdered By: Sam Pulliam on 06-11-2023 Platelets (Bld) [#/Vol] 266 10*3/uL 150-[address] [facility] Serum or plasma calcium milagros urement (mass/volume)Ordered By: Jose Raul Pulliam on 06-11-2023 Calcium [Mass/Vol] 8.4 mg/dL 8.5-10.1 [facility] Serum or plasma creatinine m easurement (mass/volume)Ordered By: Jose Raul Pulliam on 06-11-2023 Creatinine [Mass/Vol] 0.72 mg/dL 0.55-1.02 [facility] Comment on above: The validity of the calculated GFR & GFRAA in patients over 70 years has not been determined. Clinical correlation is essential. Serum or plasma urea nitroge n measurement (mass/volume)Ordered By: Jose Raul Pulliam on 06-11-2023 Urea nitrogen [Mass/Vol] 13 mg/dL - [facility] Thin prep Papanicolaou smear with manual screeningOrdered By: Jose Raul Pulliam on 06-11-2023 Thin prep Papanicolaou smear with manual screening 6 -[address] [facility] Basophil percentageOrdered B y: Jose Raul Pulliam on 05-28-2023 Chloride [Moles/Vol] 111 mmol/L 98-107 [facility] Glucose [Mass/Vol] 91 mg/dL 74-106 [facility] Potassium [Moles/Vol] 4.0 mmol/L 3.5-5.1 [facility] Sodium [Moles/Vol] 142 mmol/L 136-145 [facility] WBC (Bld) [#/Vol] 6.9 10*3/uL 4.4-11.0 [facility] Blood erythrocytes count (nu mber/volume)Ordered By: Jose Raul Pulliam on 05-28-2023 RBC (Bld) [#/Vol] 4.28 10*6/uL 4.2-5.4 [facility] Blood hemoglobin measurement (mass/volume)Ordered By: Jose Raul Pulliam on 05-28-2023 Hemoglobin (Bld) [Mass/Vol] 11.7 g/dL 12.0-15.[address] [facility] Blood platelet mean volumeOr dered By: Jose Raul Pulliam on 05-28-2023 Platelet mean volume (Bld) [Entitic vol] 9.8 fL 6.2-12.[address] [facility] Determination of erythrocyte mean corpuscular volume (MCV)Ordered By: Jose Raul Pulliam on 05-28-2023 MCV (RBC) [Entitic vol] 87.6 fL 81-99 [facility] Hematocrit Auto (Bld) [Volum e fraction]Ordered By: Jose Raul Pulliam on 05-28-2023 Hematocrit (Bld) [Volume fraction] 37.5 % 37-[address] [facility] Laboratory - Chemistry and C hemistry - challengeOrdered By: Jose Raul Pulliam on 05-28-2023 CO2 [Moles/Vol] 25.0 mmol/L 21.0-32.[address] [facility] Urea nitrogen/Creatinine [Mass ratio] 23.5 mg/mg 10-[address] [facility] Laboratory - Hematology and Cell countsOrdered By: Jose Raul Pulliam on 05-28-2023 Erythrocyte distribution width (RBC) [Entitic vol] 49.4 fL 35.1-43.[address] [facility] Erythrocyte distribution width (RBC) [Ratio] 15.6 % 11.6-14.[address] [facility] MCH (RBC) [Entitic mass] 27.3 pg 27.0-32.[address] [facility] MCHC Auto (RBC) [Mass/Vol]Or dered By: Jose Raul Pulliam on 05-28-2023 MCHC (RBC) [Mass/Vol] 31.2 g/dL 32-36 [facility] No Panel InformationOrdered By: Jose Raul Pulliam on 05-28-2023 Estimated GFR (MDRD) Amer 99 mL/min >[address] [facility] Comment on above: GFR Calc Estimated GFR (MDRD) Non-Af Amer 82 mL/min >[address] [facility] Comment on above: Non- GFR Calc Platelets bldOrdered By: Sam Pulliam on 05-28-2023 Platelets (Bld) [#/Vol] 266 10*3/uL 150-[address] [facility] Serum or plasma calcium milagros urement (mass/volume)Ordered By: Jose Raul Pulliam on 05-28-2023 Calcium [Mass/Vol] 8.8 mg/dL 8.5-10.1 [facility] Serum or plasma creatinine m easurement (mass/volume)Ordered By: Jose Raul Pulliam on 05-28-2023 Creatinine [Mass/Vol] 0.72 mg/dL 0.55-1.02 [facility] Comment on above: The validity of the calculated GFR & GFRAA in patients over 70 years has not been determined. Clinical correlation is essential. Serum or plasma urea nitroge n measurement (mass/volume)Ordered By: Jose Raul Pulliam on 05-28-2023 Urea nitrogen [Mass/Vol] 17 mg/dL 7-[address] [facility] Thin prep Papanicolaou smear with manual screeningOrdered By: Jose Raul Pulliam on 05-28-2023 Thin prep Papanicolaou smear with manual screening 6 5-[address] [facility] Basophil percentageOrdered B y: Jose Raul Pulliam on 04-30-2023 Chloride [Moles/Vol] 108 mmol/L 98-107 [facility] Glucose [Mass/Vol] 90 mg/dL 74-106 [facility] Potassium [Moles/Vol] 3.6 mmol/L 3.5-5.1 [facility] Sodium [Moles/Vol] 139 mmol/L 136-145 [facility] WBC (Bld) [#/Vol] 6.9 10*3/uL 4.4-11.0 [facility] Blood erythrocytes count (nu mber/volume)Ordered By: Jose Raul Pulliam on 04-30-2023 RBC (Bld) [#/Vol] 4.75 10*6/uL 4.2-5.4 [facility] Blood hemoglobin measurement (mass/volume)Ordered By: Jose Raul Pulliam on 04-30-2023 Hemoglobin (Bld) [Mass/Vol] 12.8 g/dL 12.0-15.[address] [facility] Blood platelet mean volumeOr dered By: Jose Raul Pulliam on 04-30-2023 Platelet mean volume (Bld) [Entitic vol] 10.1 fL 6.2-12.[address] [facility] Determination of erythrocyte mean corpuscular volume (MCV)Ordered By: Jose Raul Pulliam on 04-30-2023 MCV (RBC) [Entitic vol] 90.7 fL 81-99 [facility] Hematocrit Auto (Bld) [Volum e fraction]Ordered By: Jose Raul Pulliam on 04-30-2023 Hematocrit (Bld) [Volume fraction] 43.1 % 37-[address] [facility] Laboratory - Chemistry and C hemistry - challengeOrdered By: Jose Raul Pulliam on 04-30-2023 CO2 [Moles/Vol] 27.0 mmol/L 21.0-32.[address] [facility] Urea nitrogen/Creatinine [Mass ratio] 15.1 mg/mg 10-[address] [facility] Laboratory - Hematology and Cell countsOrdered By: Jose Raul Pulliam on 04-30-2023 Erythrocyte distribution width (RBC) [Entitic vol] 50.4 fL 35.1-43.[address] [facility] Erythrocyte distribution width (RBC) [Ratio] 15.1 % 11.6-14.[address] [facility] MCH (RBC) [Entitic mass] 26.9 pg 27.0-32.[address] [facility] MCHC Auto (RBC) [Mass/Vol]Or dered By: Jose Raul Pulliam on 04-30-2023 MCHC (RBC) [Mass/Vol] 29.7 g/dL 32-36 [facility] No Panel InformationOrdered By: Jose Raul Pulliam on 04-30-2023 Estimated GFR (MDRD) Amer 81 mL/min >[address] [facility] Comment on above: GFR Calc Estimated GFR (MDRD) Non-Af Amer 67 mL/min >[address] [facility] Comment on above: Non- GFR Calc Platelets bldOrdered By: Sam Pulliam on 04-30-2023 Platelets (Bld) [#/Vol] 349 10*3/uL 150-[address] [facility] Serum or plasma calcium milagros urement (mass/volume)Ordered By: Jose Raul Pulliam on 04-30-2023 Calcium [Mass/Vol] 9.2 mg/dL 8.5-10.1 [facility] Serum or plasma creatinine m easurement (mass/volume)Ordered By: Jose Raul Pulliam on 04-30-2023 Creatinine [Mass/Vol] 0.86 mg/dL 0.55-1.02 [facility] Comment on above: The validity of the calculated GFR & GFRAA in patients over 70 years has not been determined. Clinical correlation is essential. Serum or plasma urea nitroge n measurement (mass/volume)Ordered By: Jose Raul Pulliam on 04-30-2023 Urea nitrogen [Mass/Vol] 13 mg/dL 7-[address] [facility] Thin prep Papanicolaou smear with manual screeningOrdered By: Jose Raul Pulliam on 04-30-2023 Thin prep Papanicolaou smear with manual screening 4 5-[address] [facility] Basophil percentageOrdered B y: Jose Raul Pulliam on 04-16-2023 Chloride [Moles/Vol] 110 mmol/L 98-107 [facility] Glucose [Mass/Vol] 98 mg/dL 74-106 [facility] Potassium [Moles/Vol] 3.9 mmol/L 3.5-5.1 [facility] Sodium [Moles/Vol] 141 mmol/L 136-145 [facility] WBC (Bld) [#/Vol] 6.0 10*3/uL 4.4-11.0 [facility] Blood erythrocytes count (nu mber/volume)Ordered By: Jose Raul Pulliam on 04-16-2023 RBC (Bld) [#/Vol] 4.38 10*6/uL 4.2-5.4 [facility] Blood hemoglobin measurement (mass/volume)Ordered By: Jose Raul Pulliam on 04-16-2023 Hemoglobin (Bld) [Mass/Vol] 11.9 g/dL 12.0-15.[address] [facility] Blood platelet mean volumeOr dered By: Jose Raul Pulliam on 04-16-2023 Platelet mean volume (Bld) [Entitic vol] 9.4 fL 6.2-12.[address] [facility] Determination of erythrocyte mean corpuscular volume (MCV)Ordered By: Jose Raul Pulliam on 04-16-2023 MCV (RBC) [Entitic vol] 86.1 fL 81-99 [facility] Hematocrit Auto (Bld) [Volum e fraction]Ordered By: Jose Raul Pulliam on 04-16-2023 Hematocrit (Bld) [Volume fraction] 37.7 % 37-[address] [facility] Laboratory - Chemistry and C hemistry - challengeOrdered By: Jose Raul Pulliam on 04-16-2023 CO2 [Moles/Vol] 26.0 mmol/L 21.0-32.[address] [facility] Urea nitrogen/Creatinine [Mass ratio] 13.0 mg/mg 10-[address] [facility] Laboratory - Hematology and Cell countsOrdered By: Jose Raul Pulliam on 04-16-2023 Erythrocyte distribution width (RBC) [Entitic vol] 48.5 fL 35.1-43.[address] [facility] Erythrocyte distribution width (RBC) [Ratio] 15.4 % 11.6-14.[address] [facility] MCH (RBC) [Entitic mass] 27.2 pg 27.0-32.[address] [facility] MCHC Auto (RBC) [Mass/Vol]Or dered By: Jose Raul Pulliam on 04-16-2023 MCHC (RBC) [Mass/Vol] 31.6 g/dL 32-36 [facility] No Panel InformationOrdered By: Jose Raul Pulliam on 04-16-2023 Estimated GFR (MDRD) Amer 92 mL/min >[address] [facility] Comment on above: GFR Calc Estimated GFR (MDRD) Non-Af Amer 76 mL/min >[address] [facility] Comment on above: Non- GFR Calc Platelets bldOrdered By: Sam Pulliam on 04-16-2023 Platelets (Bld) [#/Vol] 256 10*3/uL 150-[address] [facility] Serum or plasma calcium milagros urement (mass/volume)Ordered By: Jose Raul Pulliam on 04-16-2023 Calcium [Mass/Vol] 8.7 mg/dL 8.5-10.1 [facility] Serum or plasma creatinine m easurement (mass/volume)Ordered By: Jose Raul Pulliam on 04-16-2023 Creatinine [Mass/Vol] 0.77 mg/dL 0.55-1.02 [facility] Comment on above: The validity of the calculated GFR & GFRAA in patients over 70 years has not been determined. Clinical correlation is essential. Serum or plasma urea nitroge n measurement (mass/volume)Ordered By: Jose Raul Pulliam on 04-16-2023 Urea nitrogen [Mass/Vol] 10 mg/dL 7-[address] [facility] Thin prep Papanicolaou smear with manual screeningOrdered By: Jose Raul Pulliam on 04-16-2023 Thin prep Papanicolaou smear with manual screening 5 5-[address] [facility] Basophil percentageOrdered B y: Jose Raul Pulliam on 04-02-2023 Chloride [Moles/Vol] 110 mmol/L 98-107 [facility] Glucose [Mass/Vol] 91 mg/dL 74-106 [facility] Potassium [Moles/Vol] 4.0 mmol/L 3.5-5.1 [facility] Sodium [Moles/Vol] 141 mmol/L 136-145 [facility] WBC (Bld) [#/Vol] 6.1 10*3/uL 4.4-11.0 [facility] Blood erythrocytes count (nu mber/volume)Ordered By: Jose Raul Pulliam on 04-02-2023 RBC (Bld) [#/Vol] 4.30 10*6/uL 4.2-5.4 [facility] Blood hemoglobin measurement (mass/volume)Ordered By: Jose Raul Pulliam on 04-02-2023 Hemoglobin (Bld) [Mass/Vol] 11.8 g/dL 12.0-15.[address] [facility] Blood platelet mean volumeOr dered By: Jose Raul Pulliam on 04-02-2023 Platelet mean volume (Bld) [Entitic vol] 9.8 fL 6.2-12.[address] [facility] Determination of erythrocyte mean corpuscular volume (MCV)Ordered By: Jose Raul Pulliam on 04-02-2023 MCV (RBC) [Entitic vol] 87.4 fL 81-99 [facility] Hematocrit Auto (Bld) [Volum e fraction]Ordered By: Jose Raul Pulliam on 04-02-2023 Hematocrit (Bld) [Volume fraction] 37.6 % 37-[address] [facility] Laboratory - Chemistry and C hemistry - challengeOrdered By: Jose Raul Pulliam on 04-02-2023 CO2 [Moles/Vol] 28.0 mmol/L 21.0-32.[address] [facility] Urea nitrogen/Creatinine [Mass ratio] 16.4 mg/mg 10-[address] [facility] Laboratory - Hematology and Cell countsOrdered By: Jose Raul Pulliam on 04-02-2023 Erythrocyte distribution width (RBC) [Entitic vol] 49.0 fL 35.1-43.[address] [facility] Erythrocyte distribution width (RBC) [Ratio] 15.2 % 11.6-14.[address] [facility] MCH (RBC) [Entitic mass] 27.4 pg 27.0-32.[address] [facility] MCHC Auto (RBC) [Mass/Vol]Or dered By: Jose Raul Pulliam on 04-02-2023 MCHC (RBC) [Mass/Vol] 31.4 g/dL 32-36 [facility] No Panel InformationOrdered By: Jose Raul Pulliam on 04-02-2023 Estimated GFR (MDRD) Amer 98 mL/min >[address] [facility] Comment on above: GFR Calc Estimated GFR (MDRD) Non-Af Amer 81 mL/min >[address] [facility] Comment on above: Non- GFR Calc Platelets bldOrdered By: Sam Pulliam on 04-02-2023 Platelets (Bld) [#/Vol] 253 10*3/uL 150-[address] [facility] Serum or plasma calcium milagros urement (mass/volume)Ordered By: Jose Raul Pulliam on 04-02-2023 Calcium [Mass/Vol] 8.7 mg/dL 8.5-10.1 [facility] Serum or plasma creatinine m easurement (mass/volume)Ordered By: Jose Raul Pulliam on 04-02-2023 Creatinine [Mass/Vol] 0.73 mg/dL 0.55-1.02 [facility] Comment on above: The validity of the calculated GFR & GFRAA in patients over 70 years has not been determined. Clinical correlation is essential. Serum or plasma urea nitroge n measurement (mass/volume)Ordered By: Jose Raul Pulliam on 04-02-2023 Urea nitrogen [Mass/Vol] 12 mg/dL 7-[address] [facility] Thin prep Papanicolaou smear with manual screeningOrdered By: Jose Raul Pulliam on 04-02-2023 Thin prep Papanicolaou smear with manual screening 3 5-[address] [facility] Basophil percentageOrdered B y: Jose Raul Pulliam on 03-19-2023 Chloride [Moles/Vol] 109 mmol/L 98-107 [facility] Glucose [Mass/Vol] 91 mg/dL 74-106 [facility] Potassium [Moles/Vol] 4.2 mmol/L 3.5-5.1 [facility] Sodium [Moles/Vol] 140 mmol/L 136-145 [facility] WBC (Bld) [#/Vol] 5.8 10*3/uL 4.4-11.0 [facility] Blood erythrocytes count (nu mber/volume)Ordered By: Jose Raul Pulliam on 03-19-2023 RBC (Bld) [#/Vol] 4.29 10*6/uL 4.2-5.4 [facility] Blood hemoglobin measurement (mass/volume)Ordered By: Jose Raul Pulliam on 03-19-2023 Hemoglobin (Bld) [Mass/Vol] 11.6 g/dL 12.0-15.[address] [facility] Blood platelet mean volumeOr dered By: Jose Raul Pulliam on 03-19-2023 Platelet mean volume (Bld) [Entitic vol] 9.9 fL 6.2-12.[address] [facility] Determination of erythrocyte mean corpuscular volume (MCV)Ordered By: Jose Raul Pulliam on 03-19-2023 MCV (RBC) [Entitic vol] 87.2 fL 81-99 [facility] Hematocrit Auto (Bld) [Volum e fraction]Ordered By: Jose Raul Pulliam on 03-19-2023 Hematocrit (Bld) [Volume fraction] 37.4 % 37-[address] [facility] Laboratory - Chemistry and C hemistry - challengeOrdered By: Jose Raul Pulliam on 03-19-2023 CO2 [Moles/Vol] 27.0 mmol/L 21.0-32.[address] [facility] Urea nitrogen/Creatinine [Mass ratio] 20.9 mg/mg 10-[address] [facility] Laboratory - Hematology and Cell countsOrdered By: Jose Raul Pulliam on 03-19-2023 Erythrocyte distribution width (RBC) [Entitic vol] 49.4 fL 35.1-43.[address] [facility] Erythrocyte distribution width (RBC) [Ratio] 15.4 % 11.6-14.[address] [facility] MCH (RBC) [Entitic mass] 27.0 pg 27.0-32.[address] [facility] MCHC Auto (RBC) [Mass/Vol]Or dered By: Jose Raul Pulliam on 03-19-2023 MCHC (RBC) [Mass/Vol] 31.0 g/dL 32-36 [facility] No Panel InformationOrdered By: Jose Raul Pulliam on 03-19-2023 Estimated GFR (MDRD) Amer 93 mL/min >[address] [facility] Comment on above: GFR Calc Estimated GFR (MDRD) Non-Af Amer 77 mL/min >[address] [facility] Comment on above: Non- GFR Calc Platelets bldOrdered By: Sam Pulliam on 03-19-2023 Platelets (Bld) [#/Vol] 267 10*3/uL 150-[address] [facility] Serum or plasma calcium milagros urement (mass/volume)Ordered By: Jose Raul Pulliam on 03-19-2023 Calcium [Mass/Vol] 8.6 mg/dL 8.5-10.1 [facility] Serum or plasma creatinine m easurement (mass/volume)Ordered By: Jose Raul Pulliam on 03-19-2023 Creatinine [Mass/Vol] 0.76 mg/dL 0.55-1.02 [facility] Comment on above: The validity of the calculated GFR & GFRAA in patients over 70 years has not been determined. Clinical correlation is essential. Serum or plasma urea nitroge n measurement (mass/volume)Ordered By: Jose Raul Pulliam on 03-19-2023 Urea nitrogen [Mass/Vol] 16 mg/dL 7-[address] [facility] Thin prep Papanicolaou smear with manual screeningOrdered By: Jose Raul Pulliam on 07-10-2023 Thin prep Papanicolaou smear with manual screening 4 5-[address] [facility] Basophil percentageOrdered B y: [facility] on 03-05-2023 Chloride [Moles/Vol] 111 mmol/L 98-107 [facility] Glucose [Mass/Vol] 87 mg/dL 74-106 [facility] Potassium [Moles/Vol] 4.0 mmol/L 3.5-5.1 [facility] Sodium [Moles/Vol] 140 mmol/L 136-145 [facility] WBC (Bld) [#/Vol] 5.8 10*3/uL 4.4-11.0 [facility] Blood erythrocytes count (nu mber/volume)Ordered By: [facility] on 03-05-2023 RBC (Bld) [#/Vol] 4.10 10*6/uL 4.2-5.4 [facility] Blood hemoglobin measurement (mass/volume)Ordered By: [facility] on 03-05-2023 Hemoglobin (Bld) [Mass/Vol] 11.1 g/dL 12.0-15.[address] [facility] Blood platelet mean volumeOr dered By: [facility] on 03-05-2023 Platelet mean volume (Bld) [Entitic vol] 9.9 fL 6.2-12.[address] [facility] Determination of erythrocyte mean corpuscular volume (MCV)Ordered By: [facility] on 03-05-2023 MCV (RBC) [Entitic vol] 87.6 fL 81-99 [facility] Hematocrit Auto (Bld) [Volum e fraction]Ordered By: [facility] on 03-05-2023 Hematocrit (Bld) [Volume fraction] 35.9 % 37-[address] [facility] Laboratory - Chemistry and C hemistry - challengeOrdered By: [facility] on 03-05-2023 CO2 [Moles/Vol] 25.0 mmol/L 21.0-32.[address] [facility] Urea nitrogen/Creatinine [Mass ratio] 19.6 mg/mg 10-[address] [facility] Laboratory - Hematology and Cell countsOrdered By: [facility] on 03-05-2023 Erythrocyte distribution width (RBC) [Entitic vol] 49.8 fL 35.1-43.[address] [facility] Erythrocyte distribution width (RBC) [Ratio] 15.6 % 11.6-14.[address] [facility] MCH (RBC) [Entitic mass] 27.1 pg 27.0-32.[address] [facility] MCHC Auto (RBC) [Mass/Vol]Or dered By: [facility] on 03-05-2023 MCHC (RBC) [Mass/Vol] 30.9 g/dL 32-36 [facility] No Panel InformationOrdered By: [facility] on 03-05-2023 Estimated GFR (MDRD) Amer 93 mL/min >[address] [facility] Comment on above: GFR Calc Estimated GFR (MDRD) Non-Af Amer 77 mL/min >[address] [facility] Comment on above: Non- GFR Calc Platelets bldOrdered By: [facility] on 03-05-2023 Platelets (Bld) [#/Vol] 251 10*3/uL 150-[address] [facility] Serum or plasma calcium milagros urement (mass/volume)Ordered By: [facility] on 03-05-2023 Calcium [Mass/Vol] 8.6 mg/dL 8.5-10.1 [facility] Serum or plasma creatinine m easurement (mass/volume)Ordered By: [facility] on 03-05-2023 Creatinine [Mass/Vol] 0.76 mg/dL 0.55-1.02 [facility] Comment on above: The validity of the calculated GFR & GFRAA in patients over 70 years has not been determined. Clinical correlation is essential. Serum or plasma urea nitroge n measurement (mass/volume)Ordered By: [facility] on 03-05-2023 Urea nitrogen [Mass/Vol] 15 mg/dL 7-[address] [facility] Thin prep Papanicolaou smear with manual screeningOrdered By: [facility] on 03-05-2023 Thin prep Papanicolaou smear with manual screening 4 5-[address] [facility] Basophil percentageOrdered B y: Yahir Foster on 02-20-2023 Chloride [Moles/Vol] 112 mmol/L 98-107 [facility] Glucose [Mass/Vol] 90 mg/dL 74-106 [facility] Potassium [Moles/Vol] 4.1 mmol/L 3.5-5.1 [facility] Sodium [Moles/Vol] 142 mmol/L 136-145 [facility] WBC (Bld) [#/Vol] 6.8 10*3/uL 4.4-11.0 [facility] Blood erythrocytes count (nu mber/volume)Ordered By: Yahir Foster on 02-20-2023 RBC (Bld) [#/Vol] 4.52 10*6/uL 4.2-5.4 [facility] Blood hemoglobin measurement (mass/volume)Ordered By: Yahir Foster on 02-20-2023 Hemoglobin (Bld) [Mass/Vol] 12.3 g/dL 12.0-15.[address] [facility] Blood platelet mean volumeOr dered By: Yahir Foster on 02-20-2023 Platelet mean volume (Bld) [Entitic vol] 9.8 fL 6.2-12.[address] [facility] Determination of erythrocyte mean corpuscular volume (MCV)Ordered By: Yahir Foster on 02-20-2023 MCV (RBC) [Entitic vol] 88.7 fL 81-[address] [facility] Hematocrit Auto (Bld) [Volum e fraction]Ordered By: Yahir Foster on 02-20-2023 Hematocrit (Bld) [Volume fraction] 40.1 % 37-[address] [facility] Laboratory - Chemistry and C hemistry - challengeOrdered By: Yahir Foster on 02-20-2023 CO2 [Moles/Vol] 24.0 mmol/L 21.0-32.[address] [facility] Urea nitrogen/Creatinine [Mass ratio] 15.9 mg/mg 10-[address] [facility] Laboratory - Hematology and Cell countsOrdered By: Yahir Foster on 02-20-2023 Erythrocyte distribution width (RBC) [Entitic vol] 51.5 fL 35.1-43.[address] [facility] Erythrocyte distribution width (RBC) [Ratio] 15.7 % 11.6-14.[address] [facility] MCH (RBC) [Entitic mass] 27.2 pg 27.0-32.[address] [facility] MCHC Auto (RBC) [Mass/Vol]Or dered By: Yahir Foster on 02-20-2023 MCHC (RBC) [Mass/Vol] 30.7 g/dL 32-36 [facility] No Panel InformationOrdered By: Yahir Foster on 02-20-2023 Estimated GFR (MDRD) Amer 86 mL/min >[address] [facility] Comment on above: GFR Calc Estimated GFR (MDRD) Non-Af Amer 71 mL/min >[address] [facility] Comment on above: Non- GFR Calc Platelets bldOrdered By: Jos Foster on 02-20-2023 Platelets (Bld) [#/Vol] 296 10*3/uL 150-[address] [facility] Serum or plasma calcium milagros urement (mass/volume)Ordered By: Yahir Foster on 02-20-2023 Calcium [Mass/Vol] 9.0 mg/dL 8.5-10.1 [facility] Serum or plasma creatinine m easurement (mass/volume)Ordered By: Yahir Foster on 02-20-2023 Creatinine [Mass/Vol] 0.82 mg/dL 0.55-1.02 [facility] Comment on above: The validity of the calculated GFR & GFRAA in patients over 70 years has not been determined. Clinical correlation is essential. Serum or plasma urea nitroge n measurement (mass/volume)Ordered By: Yahir Foster on 02-20-2023 Urea nitrogen [Mass/Vol] 13 mg/dL 7-[address] [facility] Thin prep Papanicolaou smear with manual screeningOrdered By: Yahir Foster on 02-20-2023 Thin prep Papanicolaou smear with manual screening 6 5-[address] [facility] Basophil percentageOrdered B y: Jose Raul Pulliam on 02-06-2023 Chloride [Moles/Vol] 110 mmol/L 98-107 [facility] Glucose [Mass/Vol] 94 mg/dL 74-106 [facility] Potassium [Moles/Vol] 4.5 mmol/L 3.5-5.1 [facility] Sodium [Moles/Vol] 143 mmol/L 136-145 [facility] WBC (Bld) [#/Vol] 6.4 10*3/uL 4.4-11.0 [facility] Blood erythrocytes count (nu mber/volume)Ordered By: Jose Raul Pulliam on 02-06-2023 RBC (Bld) [#/Vol] 4.52 10*6/uL 4.2-5.4 [facility] Blood hemoglobin measurement (mass/volume)Ordered By: Jose Raul Pulliam on 02-06-2023 Hemoglobin (Bld) [Mass/Vol] 12.3 g/dL 12.0-15.[address] [facility] Blood platelet mean volumeOr dered By: Jose Raul Pulliam on 02-06-2023 Platelet mean volume (Bld) [Entitic vol] 9.6 fL 6.2-12.[address] [facility] Determination of erythrocyte mean corpuscular volume (MCV)Ordered By: Jose Raul Pulliam on 02-06-2023 MCV (RBC) [Entitic vol] 88.9 fL 81-99 [facility] Hematocrit Auto (Bld) [Volum e fraction]Ordered By: Jose Raul Pulliam on 02-06-2023 Hematocrit (Bld) [Volume fraction] 40.2 % 37-[address] [facility] Laboratory - Chemistry and C hemistry - challengeOrdered By: Jose Raul Pulliam on 02-06-2023 CO2 [Moles/Vol] 25.0 mmol/L 21.0-32.[address] [facility] Urea nitrogen/Creatinine [Mass ratio] 19.4 mg/mg 10-[address] [facility] Laboratory - Hematology and Cell countsOrdered By: Jose Raul Pulliam on 02-06-2023 Erythrocyte distribution width (RBC) [Entitic vol] 50.7 fL 35.1-43.[address] [facility] Erythrocyte distribution width (RBC) [Ratio] 15.6 % 11.6-14.[address] [facility] MCH (RBC) [Entitic mass] 27.2 pg 27.0-32.[address] [facility] MCHC Auto (RBC) [Mass/Vol]Or dered By: Jose Raul Pulliam on 02-06-2023 MCHC (RBC) [Mass/Vol] 30.6 g/dL 32-36 [facility] No Panel InformationOrdered By: Jose Raul Pulliam on 02-06-2023 Estimated GFR (MDRD) Amer 85 mL/min >[address] [facility] Comment on above: GFR Calc Estimated GFR (MDRD) Non-Af Amer 70 mL/min >[address] [facility] Comment on above: Non- GFR Calc Platelets bldOrdered By: Sam minal Heraclio on 02-06-2023 Platelets (Bld) [#/Vol] 290 10*3/uL 150-[address] [facility] Serum or plasma calcium milagros urement (mass/volume)Ordered By: Jose Raul Pulliam on 02-06-2023 Calcium [Mass/Vol] 9.2 mg/dL 8.5-10.1 [facility] Serum or plasma creatinine m easurement (mass/volume)Ordered By: Jose Raul Pulliam on 02-06-2023 Creatinine [Mass/Vol] 0.82 mg/dL 0.55-1.02 [facility] Comment on above: The validity of the calculated GFR & GFRAA in patients over 70 years has not been determined. Clinical correlation is essential. Serum or plasma urea nitroge n measurement (mass/volume)Ordered By: Jose Raul Pulliam on 02-06-2023 Urea nitrogen [Mass/Vol] 16 mg/dL 7-[address] [facility] Thin prep Papanicolaou smear with manual screeningOrdered By: Jose Raul Pulliam on 02-06-2023 Thin prep Papanicolaou smear with manual screening 8 5-[address] [facility] Absolute lymphocyte countOrd ered By: Krissy Alex on 01-29-2023 Lymphocytes Auto (Unsp spec) [#/Vol] 1.64 10*3/uL 0.83-4.[address] [facility] Basophil percentageOrdered B y: Krissy Alex on 01-29-2023 Basophils/100 WBC (Bld) 0.5 % 0-[address] [facility] Bilirubin [Mass/Vol] 0.30 mg/dL 0.20-1.00 [facility] Comment on above: For patients on eltr ombopag therapy, use of Dimension [place] TBIL is not recommended. Chloride [Moles/Vol] 109 mmol/L 98-107 [facility] Eosinophils/100 WBC (Bld) 3.2 % 0-[address] [facility] Glucose [Mass/Vol] 86 mg/dL 74-106 [facility] Neutrophils (Bld) [#/Vol] 3.5 10*3/uL 2.0-7.[address] [facility] Neutrophils/100 WBC (Bld) 59.0 % 47-[address] [facility] Potassium [Moles/Vol] 4.1 mmol/L 3.5-5.1 [facility] Protein [Mass/Vol] 6.4 g/dL 6.4-8.2 [facility] Sodium [Moles/Vol] 143 mmol/L 136-145 [facility] WBC (Bld) [#/Vol] 6.0 10*3/uL 4.4-11.0 [facility] Blood erythrocytes count (nu mber/volume)Ordered By: Krissy Alex on 01-29-2023 RBC (Bld) [#/Vol] 4.07 10*6/uL 4.2-5.4 [facility] Blood hemoglobin measurement (mass/volume)Ordered By: Krissy Alex on 01-29-2023 Hemoglobin (Bld) [Mass/Vol] 11.2 g/dL 12.0-15.[address] [facility] Blood lymphocytes/100 leukoc ytesOrdered By: Krissy Alex on 01-29-2023 Lymphocytes/100 WBC (Bld) 27.4 % 19-[address] [facility] Blood monocytes/100 leukocyt esOrdered By: Krissy Alex on 01-29-2023 Monocytes/100 WBC (Bld) 9.2 % 0-10 [facility] Blood platelet mean volumeOr dered By: Krissy Alex on 01-29-2023 Platelet mean volume (Bld) [Entitic vol] 10.1 fL 6.2-12.[address] [facility] Determination of erythrocyte mean corpuscular volume (MCV)Ordered By: Krissy Alex on 01-29-2023 MCV (RBC) [Entitic vol] 88.0 fL 81-99 [facility] Hematocrit Auto (Bld) [Volum e fraction]Ordered By: Krissy Alex on 01-29-2023 Hematocrit (Bld) [Volume fraction] 35.8 % 37-[address] [facility] Laboratory - Chemistry and C hemistry - challengeOrdered By: Krissy Alex on 01-29-2023 ALP [Catalytic activity/Vol] 78 U/L 45-[address] [facility] ALT [Catalytic activity/Vol] 15 U/L 13-[address] [facility] CO2 [Moles/Vol] 27.0 mmol/L 21.0-32.[address] [facility] Globulin (S) [Mass/Vol] 3.5 g/dL 2.2-4.2 [facility] Urea nitrogen/Creatinine [Mass ratio] 17.4 mg/mg 10-[address] [facility] Laboratory - Hematology and Cell countsOrdered By: Krissy Alex on 01-29-2023 Erythrocyte distribution width (RBC) [Entitic vol] 48.9 fL 35.1-43.[address] [facility] Erythrocyte distribution width (RBC) [Ratio] 15.2 % 11.6-14.[address] [facility] Immature granulocytes/100 WBC (Bld) 0.700 % 0.0-0.[address] [facility] Comment on above: IG% - Immature Granu locytes (promyelocytes, myelocytes and metamyelocytes) > 1% indicates that a LEFT SHIFT is Present. MCH (RBC) [Entitic mass] 27.5 pg 27.0-32.[address] [facility] Nucleated RBC/100 WBC (Bld) [Ratio] 0 % 0-[address] [facility] MCHC Auto (RBC) [Mass/Vol]Or dered By: Krissy Alex on 01-29-2023 MCHC (RBC) [Mass/Vol] 31.3 g/dL 32-36 [facility] No Panel InformationOrdered By: Krissy Alex on 01-29-2023 Estimated GFR (MDRD) Amer 95 mL/min >[address] [facility] Comment on above: GFR Calc Estimated GFR (MDRD) Non-Af Amer 79 mL/min >[address] [facility] Comment on above: Non- GFR Calc Platelets bldOrdered By: Murray Alex on 01-29-2023 Platelets (Bld) [#/Vol] 261 10*3/uL 150-[address] [facility] Serum or plasma albumin milagros urement (mass/volume)Ordered By: Krissy Alex on 01-29-2023 Albumin [Mass/Vol] 2.9 g/dL 3.2-5.0 [facility] Serum or plasma albumin/glob ulin mass ratioOrdered By: Krissy Alex on 01-29-2023 Albumin/Globulin [Mass ratio] 0.8 {ratio} 0.9-2.[address] [facility] Serum or plasma calcium milagros urement (mass/volume)Ordered By: Krissy Alex on 01-29-2023 Calcium [Mass/Vol] 8.8 mg/dL 8.5-10.1 [facility] Serum or plasma creatinine m easurement (mass/volume)Ordered By: Krissy Alex on 01-29-2023 Creatinine [Mass/Vol] 0.75 mg/dL 0.55-1.02 [facility] Comment on above: The validity of the calculated GFR & GFRAA in patients over 70 years has not been determined. Clinical correlation is essential. Serum or plasma urea nitroge n measurement (mass/volume)Ordered By: Krissy Alex on 01-29-2023 Urea nitrogen [Mass/Vol] 13 mg/dL 7-[address] [facility] Thin prep Papanicolaou smear with manual screeningOrdered By: Krissy Alex on 01-29-2023 Thin prep Papanicolaou smear with manual screening 13 U/L 15- [facility] Thin prep Papanicolaou smear with manual screening 7 5-[address] [facility] Basophil percentageOrdered B y: Jose Raul Pulliam on 01-22-2023 Chloride [Moles/Vol] 110 mmol/L 98-107 [facility] Glucose [Mass/Vol] 93 mg/dL 74-106 [facility] Potassium [Moles/Vol] 4.3 mmol/L 3.5-5.1 [facility] Sodium [Moles/Vol] 144 mmol/L 136-145 [facility] WBC (Bld) [#/Vol] 6.4 10*3/uL 4.4-11.0 [facility] Blood erythrocytes count (nu mber/volume)Ordered By: Jose Raul Pulliam on 01-22-2023 RBC (Bld) [#/Vol] 4.17 10*6/uL 4.2-5.4 [facility] Blood hemoglobin measurement (mass/volume)Ordered By: Jose Raul Pulliam on 01-22-2023 Hemoglobin (Bld) [Mass/Vol] 11.4 g/dL 12.0-15.[address] [facility] Blood platelet mean volumeOr dered By: Jose Raul Pulliam on 01-22-2023 Platelet mean volume (Bld) [Entitic vol] 10.0 fL 6.2-12.[address] [facility] Determination of erythrocyte mean corpuscular volume (MCV)Ordered By: Jose Raul Pulliam on 01-22-2023 MCV (RBC) [Entitic vol] 89.4 fL 81-99 [facility] Hematocrit Auto (Bld) [Volum e fraction]Ordered By: Jose Raul Pulliam on 01-22-2023 Hematocrit (Bld) [Volume fraction] 37.3 % 37-[address] [facility] Laboratory - Chemistry and C hemistry - challengeOrdered By: Jose Raul Pulliam on 01-22-2023 CO2 [Moles/Vol] 27.0 mmol/L 21.0-32.[address] [facility] Urea nitrogen/Creatinine [Mass ratio] 18.2 mg/mg 10-[address] [facility] Laboratory - Hematology and Cell countsOrdered By: Jose Raul Pulliam on 01-22-2023 Erythrocyte distribution width (RBC) [Entitic vol] 48.8 fL 35.1-43.[address] [facility] Erythrocyte distribution width (RBC) [Ratio] 15.0 % 11.6-14.[address] [facility] MCH (RBC) [Entitic mass] 27.3 pg 27.0-32.[address] [facility] MCHC Auto (RBC) [Mass/Vol]Or dered By: Jose Raul Pulliam on 01-22-2023 MCHC (RBC) [Mass/Vol] 30.6 g/dL 32-36 [facility] No Panel InformationOrdered By: Jose Raul Pulliam on 01-22-2023 Estimated GFR (MDRD) Amer 85 mL/min >[address] [facility] Comment on above: GFR Calc Estimated GFR (MDRD) Non-Af Amer 70 mL/min >[address] [facility] Comment on above: Non- GFR Calc Platelets bldOrdered By: Sam Pulliam on 01-22-2023 Platelets (Bld) [#/Vol] 269 10*3/uL 150-[address] [facility] Serum or plasma calcium milagros urement (mass/volume)Ordered By: Jose Raul Pulliam on 01-22-2023 Calcium [Mass/Vol] 8.6 mg/dL 8.5-10.1 [facility] Serum or plasma creatinine m easurement (mass/volume)Ordered By: Jose Raul Pulliam on 01-22-2023 Creatinine [Mass/Vol] 0.82 mg/dL 0.55-1.02 [facility] Comment on above: The validity of the calculated GFR & GFRAA in patients over 70 years has not been determined. Clinical correlation is essential. Serum or plasma urea nitroge n measurement (mass/volume)Ordered By: Jose Raul Pulliam on 01-22-2023 Urea nitrogen [Mass/Vol] 15 mg/dL 7-[address] [facility] Thin prep Papanicolaou smear with manual screeningOrdered By: [facility] Thin prep Papanicolaou smear with manual screening 7 5-[address] [facility] Basophil percentageOrdered B y: Yahir Foster on 01-08-2023 Chloride [Moles/Vol] 110 mmol/L 98-107 [facility] Glucose [Mass/Vol] 99 mg/dL 74-106 [facility] Potassium [Moles/Vol] 3.8 mmol/L 3.5-5.1 [facility] Sodium [Moles/Vol] 140 mmol/L 136-145 [facility] WBC (Bld) [#/Vol] 6.1 10*3/uL 4.4-11.0 [facility] Blood erythrocytes count (nu mber/volume)Ordered By: Yahir Foster on 01-08-2023 RBC (Bld) [#/Vol] 4.13 10*6/uL 4.2-5.4 [facility] Blood hemoglobin measurement (mass/volume)Ordered By: Yahir Foster on 01-08-2023 Hemoglobin (Bld) [Mass/Vol] 11.3 g/dL 12.0-15.[address] [facility] Blood platelet mean volumeOr dered By: Yahir Foster on 01-08-2023 Platelet mean volume (Bld) [Entitic vol] 9.9 fL 6.2-12.[address] [facility] Determination of erythrocyte mean corpuscular volume (MCV)Ordered By: Yahir Foster on 01-08-2023 MCV (RBC) [Entitic vol] 87.4 fL 81-99 [facility] Hematocrit Auto (Bld) [Volum e fraction]Ordered By: Yahir Foster on 01-08-2023 Hematocrit (Bld) [Volume fraction] 36.1 % 37-[address] [facility] Laboratory - Chemistry and C hemistry - challengeOrdered By: Yahir Foster on 01-08-2023 CO2 [Moles/Vol] 23.0 mmol/L 21.0-32.[address] [facility] Urea nitrogen/Creatinine [Mass ratio] 20.6 mg/mg 10-[address] [facility] Laboratory - Hematology and Cell countsOrdered By: Yahir Foster on 01-08-2023 Erythrocyte distribution width (RBC) [Entitic vol] 48.4 fL 35.1-43.[address] [facility] Erythrocyte distribution width (RBC) [Ratio] 15.0 % 11.6-14.[address] [facility] MCH (RBC) [Entitic mass] 27.4 pg 27.0-32.[address] [facility] MCHC Auto (RBC) [Mass/Vol]Or dered By: Yahir Foster on 01-08-2023 MCHC (RBC) [Mass/Vol] 31.3 g/dL 32-36 [facility] No Panel InformationOrdered By: Yahir Foster on 01-08-2023 Estimated GFR (MDRD) Amer 75 mL/min >[address] [facility] Comment on above: GFR Calc Estimated GFR (MDRD) Non-Af Amer 62 mL/min >[address] [facility] Comment on above: Non- GFR Calc Platelets bldOrdered By: Jos Foster on 01-08-2023 Platelets (Bld) [#/Vol] 247 10*3/uL 150-[address] [facility] Serum or plasma calcium milagros urement (mass/volume)Ordered By: Yahir Foster on 01-08-2023 Calcium [Mass/Vol] 9.0 mg/dL 8.5-10.1 [facility] Serum or plasma creatinine m easurement (mass/volume)Ordered By: Yahir Foster on 01-08-2023 Creatinine [Mass/Vol] 0.92 mg/dL 0.55-1.02 [facility] Comment on above: The validity of the calculated GFR & GFRAA in patients over 70 years has not been determined. Clinical correlation is essential. Serum or plasma urea nitroge n measurement (mass/volume)Ordered By: Yahir Foster on 01-08-2023 Urea nitrogen [Mass/Vol] 19 mg/dL 7-[address] [facility] Thin prep Papanicolaou smear with manual screeningOrdered By: Yahir Foster on 01-08-2023 Thin prep Papanicolaou smear with manual screening 7 5-[address] [facility] Culture, urineOrdered By: Dr Jeronimo Dumont on 01-02-2023 Bacteria identified Cx Nom (U) Positive [facility] Absolute lymphocyte countOrd ered By: Dr. Dumont on 12-31-2022 Lymphocytes Auto (Unsp spec) [#/Vol] 1.68 10*3/uL 0.83-4.[address] [facility] Basophil percentageOrdered B y: Dr. Dumont on 12-31-2022 Basophil percentage 5-10 SEEN /hpf 0-5 [facility] Basophils/100 WBC (Bld) 0.4 % 0-1 [facility] Bilirubin [Mass/Vol] 0.20 mg/dL 0.20-1.00 [facility] Comment on above: For patients on eltr ombopag therapy, use of Dimension [place] TBIL is not recommended. Chloride [Moles/Vol] 112 mmol/L 98-107 [facility] Eosinophils/100 WBC (Bld) 2.3 % 0-[address] [facility] Glucose [Mass/Vol] 99 mg/dL 74-106 [facility] Neutrophils (Bld) [#/Vol] 5.1 10*3/uL 2.0-7.[address] [facility] Neutrophils/100 WBC (Bld) 67.4 % 47-[address] [facility] Potassium [Moles/Vol] 4.2 mmol/L 3.5-5.1 [facility] Protein [Mass/Vol] 7.2 g/dL 6.4-8.2 [facility] Sodium [Moles/Vol] 139 mmol/L 136-145 [facility] WBC (Bld) [#/Vol] 7.5 10*3/uL 4.4-11.0 [facility] Bilirubin Test strip Ql (U)O rdered By: Dr. Dumont on 12-31-2022 Bilirubin Ql (U) Negative Negative [facility] Blood erythrocytes count (nu mber/volume)Ordered By: Dr. Dumont on 12-31-2022 RBC (Bld) [#/Vol] 4.24 10*6/uL 4.2-5.4 [facility] Blood hemoglobin measurement (mass/volume)Ordered By: Dr. Dumont on 12-31-2022 Hemoglobin (Bld) [Mass/Vol] 11.9 g/dL 12.0-15.[address] [facility] Blood lymphocytes/100 leukoc ytesOrdered By: Dr. Dumont on 12-31-2022 Lymphocytes/100 WBC (Bld) 22.4 % 19-[address] [facility] Blood monocytes/100 leukocyt esOrdered By: Dr. Dumont on 12-31-2022 Monocytes/100 WBC (Bld) 7.2 % 0-10 [facility] Blood platelet mean volumeOr dered By: Dr. Dumont on 12-31-2022 Platelet mean volume (Bld) [Entitic vol] 9.4 fL 6.2-12.[address] [facility] Culture, urineOrdered By: Monico Dumont on 12-31-2022 Bacteria identified Cx Nom (U) Positive [facility] Determination of erythrocyte mean corpuscular volume (MCV)Ordered By: Dr. Dumont on 12-31-2022 MCV (RBC) [Entitic vol] 87.5 fL 81-99 [facility] Hematocrit Auto (Bld) [Volum e fraction]Ordered By: Dr. Dumont on 12-31-2022 Hematocrit (Bld) [Volume fraction] 37.1 % 37-[address] [facility] Ketones Test strip Ql (U)Ord ered By: Dr. Dumont on 12-31-2022 Ketones Ql (U) Negative Negative [facility] Laboratory - Chemistry and C hemistry - challengeOrdered By: Dr. Dumont on 12-31-2022 ALP [Catalytic activity/Vol] 83 U/L 45-[address] [facility] ALT [Catalytic activity/Vol] 17 U/L 13-[address] [facility] CO2 [Moles/Vol] 24.0 mmol/L 21.0-32.[address] [facility] Globulin (S) [Mass/Vol] 3.8 g/dL 2.2-4.2 [facility] Urea nitrogen/Creatinine [Mass ratio] 17.5 mg/mg 10-[address] [facility] Laboratory - Drug toxicology Ordered By: Dr. Dumont on 12-31-2022 Amphetamines Ql (U) Negative <1000 ng/mL [facility] Benzodiazepines Ql (U) Negative < 200 ng/mL [facility] Cannabinoids Screen Ql (U) Negative < 50 ng/mL [facility] Cocaine Ql (U) Negative < 300 ng/mL [facility] Opiates Ql (U) Negative < 300 ng/mL [facility] Laboratory - Hematology and Cell countsOrdered By: Dr. Dumont on 12-31-2022 Erythrocyte distribution width (RBC) [Entitic vol] 48.5 fL 35.1-43.[address] [facility] Erythrocyte distribution width (RBC) [Ratio] 15.1 % 11.6-14.[address] [facility] Immature granulocytes/100 WBC (Bld) 0.300 % 0.0-0.[address] [facility] Comment on above: IG% - Immature Granu locytes (promyelocytes, myelocytes and metamyelocytes) > 1% indicates that a LEFT SHIFT is Present. MCH (RBC) [Entitic mass] 28.1 pg 27.0-32.[address] [facility] Nucleated RBC/100 WBC (Bld) [Ratio] 0 % 0-[address] [facility] MCHC Auto (RBC) [Mass/Vol]Or dered By: Dr. Dumont on 12-31-2022 MCHC (RBC) [Mass/Vol] 32.1 g/dL 32-36 [facility] Mucus LM Ql (Urine sed)Order ed By: Dr. Dumont on 12-31-2022 Mucus Ql (Urine sed) 0 SEEN /hpf [facility] Nitrite Test strip Ql (U)Ord ered By: Dr. Dumont on 12-31-2022 Nitrite Ql (U) Negative Negative [facility] No Panel InformationOrdered By: Dr. Dumont on 12-31-2022 MDMA (Ecstasy) Screen Negative < 500 ng/mL [facility] Urine Barbiturates Screen Negative < 200 ng/mL [facility] Urine Drug Screen Comment [facility] Comment on above: CONFIRMATORY TESTING [...] Methadone Screen Negative < 300 ng/mL [facility] Estimated Creatinine Clearance Calc 39.08 ml/min [facility] Estimated GFR (MDRD) Amer 58 mL/min >[address] [facility] Comment on above: GFR Calc Estimated GFR (MDRD) Non-Af Amer 48 mL/min >[address] [facility] Comment on above: Non- GFR Calc Ethyl Alcohol Level < 3.0 mg/dL [facility] Comment on above: The serum:whole bloo d ethanol ratio is approximately 1.14and varies slightly with hematocrit. Medical Alcohol reference interval and critical value innon-tolerant individuals; 50 - 100 Impairment 100 Intoxication 100 - 250 Severe Poisoning 250 - 400 Deep/possible fatal coma Platelets bldOrdered By: Dr. Dumont on 12-31-2022 Platelets (Bld) [#/Vol] 245 10*3/uL 150-[address] [facility] Protein Test strip Ql (U)Ord ered By: Dr. Dumont on 12-31-2022 Protein Ql (U) Negative Negative [facility] Serum or plasma albumin milagros urement (mass/volume)Ordered By: Dr. Dumont on 12-31-2022 Albumin [Mass/Vol] 3.4 g/dL 3.2-5.0 [facility] Serum or plasma albumin/glob ulin mass ratioOrdered By: Dr. Dumont on 12-31-2022 Albumin/Globulin [Mass ratio] 0.9 {ratio} 0.9-2.[address] [facility] Serum or plasma calcium milagros urement (mass/volume)Ordered By: Dr. Dumont on 12-31-2022 Calcium [Mass/Vol] 9.2 mg/dL 8.5-10.1 [facility] Serum or plasma creatinine m easurement (mass/volume)Ordered By: Dr. Dumont on 12-31-2022 Creatinine [Mass/Vol] 1.14 mg/dL 0.55-1.02 [facility] Comment on above: The validity of the calculated GFR & GFRAA in patients over 70 years has not been determined. Clinical correlation is essential. Serum or plasma urea nitroge n measurement (mass/volume)Ordered By: Dr. Dumont on 12-31-2022 Urea nitrogen [Mass/Vol] 20 mg/dL 7-[address] [facility] Squamous epithelial cells de tection in urine sediment by light microscopyOrdered By: Dr. Dumont on 12-31-2022 Epithelial cells.squamous LM Ql (Urine sed) 0-5 SEEN /hpf 5-[address] [facility] Thin prep Papanicolaou smear with manual screeningOrdered By: Dr. Dumont on 12-31-2022 Thin prep Papanicolaou smear with manual screening 11 U/L 15-[address] [facility] Thin prep Papanicolaou smear with manual screening 3 5-[address] [facility] Urine blood detectionOrdered By: Dr. Dumont on 12-31-2022 RBC Ql (U) 10 /ul Negative [facility] RBC Ql (U) 0-5 SEEN /hpf 0-[address] [facility] Urine clarityOrdered By: Dr. Dumont on 12-31-2022 Clarity (U) Clear Clear [facility] Urine color determinationOrd ered By: Dr. Dumont on 12-31-2022 Color (U) Yellow Yellow [facility] Urine glucose detectionOrder ed By: Dr. Dumont on 12-31-2022 Glucose Ql (U) Normal mg/dl Normal [facility] Urine leukocyte esterase det ection by dipstickOrdered By: Dr. Dumont on 12-31-2022 Leukocyte esterase Test strip Ql (U) 100 /ul Negative [facility] Urine pHOrdered By: Dr. Sachi kaur on 12-31-2022 pH (U) 5.0 [pH] 5.0 - 8.[address] [facility] Urine phencyclidine (PCP) de tectionOrdered By: Dr. Dumont on 12-31-2022 Phencyclidine Ql (U) Negative < 25 ng/mL [facility] Urine sediment bacteria coun t by microscopy (number/high power field)Ordered By: Dr. Dumont on 12-31-2022 Bacteria LM.HPF (Urine sed) [#/Area] 1 /[HPF] None Seen [facility] Urine specific gravity measu rementOrdered By: Dr. Dumont on 12-31-2022 Specific gravity (U) [Rel density] 1.025 1.002-1.[address] [facility] Urobilinogen Auto test strip Ql (U)Ordered By: Dr. Dumont on 12-31-2022 Urobilinogen Ql (U) Normal mg/dl Normal [facility] Basophil percentageOrdered B y: Jose Raul Pulliam on 12-25-2022 Chloride [Moles/Vol] 111 mmol/L 98-107 [facility] Glucose [Mass/Vol] 86 mg/dL 74-106 [facility] Potassium [Moles/Vol] 4.1 mmol/L 3.5-5.1 [facility] Sodium [Moles/Vol] 141 mmol/L 136-145 [facility] WBC (Bld) [#/Vol] 6.0 10*3/uL 4.4-11.0 [facility] Blood erythrocytes count (nu mber/volume)Ordered By: Jose Raul Pulliam on 12-25-2022 RBC (Bld) [#/Vol] 4.13 10*6/uL 4.2-5.4 [facility] Blood hemoglobin measurement (mass/volume)Ordered By: Jose Raul Pluliam on 12-25-2022 Hemoglobin (Bld) [Mass/Vol] 11.4 g/dL 12.0-15.[address] [facility] Blood platelet mean volumeOr dered By: Jose Raul Pulliam on 12-25-2022 Platelet mean volume (Bld) [Entitic vol] 10.2 fL 6.2-12.[address] [facility] Determination of erythrocyte mean corpuscular volume (MCV)Ordered By: Jose Raul Pulliam on 12-25-2022 MCV (RBC) [Entitic vol] 88.1 fL 81-99 [facility] Hematocrit Auto (Bld) [Volum e fraction]Ordered By: Jose Raul Pulliam on 12-25-2022 Hematocrit (Bld) [Volume fraction] 36.4 % 37-[address] [facility] Laboratory - Chemistry and C hemistry - challengeOrdered By: Jose Raul Pulliam on 12-25-2022 CO2 [Moles/Vol] 25.0 mmol/L 21.0-32.[address] [facility] Urea nitrogen/Creatinine [Mass ratio] 18.3 mg/mg 10-[address] [facility] Laboratory - Hematology and Cell countsOrdered By: Jose Raul Pulliam on 12-25-2022 Erythrocyte distribution width (RBC) [Entitic vol] 48.1 fL 35.1-43.[address] [facility] Erythrocyte distribution width (RBC) [Ratio] 14.8 % 11.6-14.[address] [facility] MCH (RBC) [Entitic mass] 27.6 pg 27.0-32.[address] [facility] MCHC Auto (RBC) [Mass/Vol]Or dered By: Jose Raul Pulliam on 12-25-2022 MCHC (RBC) [Mass/Vol] 31.3 g/dL 32-36 [facility] No Panel InformationOrdered By: Jose Raul Pulliam on 12-25-2022 Estimated GFR (MDRD) Amer 92 mL/min >[address] [facility] Comment on above: GFR Calc Estimated GFR (MDRD) Non-Af Amer 76 mL/min >[address] [facility] Comment on above: Non- GFR Calc Platelets bldOrdered By: Sam Pulliam on 12-25-2022 Platelets (Bld) [#/Vol] 219 10*3/uL 150-[address] [facility] Serum or plasma calcium milagros urement (mass/volume)Ordered By: Jose Raul Pulliam on 12-25-2022 Calcium [Mass/Vol] 8.6 mg/dL 8.5-10.1 [facility] Serum or plasma creatinine m easurement (mass/volume)Ordered By: Jose Raul Pulliam on 12-25-2022 Creatinine [Mass/Vol] 0.77 mg/dL 0.55-1.02 [facility] Comment on above: The validity of the calculated GFR & GFRAA in patients over 70 years has not been determined. Clinical correlation is essential. Serum or plasma urea nitroge n measurement (mass/volume)Ordered By: Jose Raul Pulliam on 12-25-2022 Urea nitrogen [Mass/Vol] 14 mg/dL 7-[address] [facility] Thin prep Papanicolaou smear with manual screeningOrdered By: Jose Raul Pulliam on 12-25-2022 Thin prep Papanicolaou smear with manual screening 5 5-[address] [facility] Basophil percentageOrdered B y: Yahir Foster on 12-11-2022 Chloride [Moles/Vol] 109 mmol/L 98-107 [facility] Glucose [Mass/Vol] 113 mg/dL 74-106 [facility] Comment on above: Fasting Glucose resu lt from 100 to 125 mg/dL suggests IMPAIRED HOMEOSTASIS per A.D.A. criteria. Potassium [Moles/Vol] 3.7 mmol/L 3.5-5.1 [facility] Sodium [Moles/Vol] 140 mmol/L 136-145 [facility] WBC (Bld) [#/Vol] 6.6 10*3/uL 4.4-11.0 [facility] Blood erythrocytes count (nu mber/volume)Ordered By: Yahir Foster on 12-11-2022 RBC (Bld) [#/Vol] 4.63 10*6/uL 4.2-5.4 [facility] Blood hemoglobin measurement (mass/volume)Ordered By: Yahir Foster on 12-11-2022 Hemoglobin (Bld) [Mass/Vol] 12.7 g/dL 12.0-15.[address] [facility] Blood platelet mean volumeOr dered By: Yahir Foster on 12-11-2022 Platelet mean volume (Bld) [Entitic vol] 10.0 fL 6.2-12.[address] [facility] Determination of erythrocyte mean corpuscular volume (MCV)Ordered By: Yahir Foster on 12-11-2022 MCV (RBC) [Entitic vol] 89.4 fL 81-99 [facility] Hematocrit Auto (Bld) [Volum e fraction]Ordered By: Yahir Foster on 12-11-2022 Hematocrit (Bld) [Volume fraction] 41.4 % 37-[address] [facility] Laboratory - Chemistry and C hemistry - challengeOrdered By: Yahir Foster on 12-11-2022 CO2 [Moles/Vol] 26.0 mmol/L 21.0-32.[address] [facility] Urea nitrogen/Creatinine [Mass ratio] 16.4 mg/mg 10-[address] [facility] Laboratory - Hematology and Cell countsOrdered By: Yahir Foster on 12-11-2022 Erythrocyte distribution width (RBC) [Entitic vol] 48.6 fL 35.1-43.[address] [facility] Erythrocyte distribution width (RBC) [Ratio] 14.8 % 11.6-14.[address] [facility] MCH (RBC) [Entitic mass] 27.4 pg 27.0-32.[address] [facility] MCHC Auto (RBC) [Mass/Vol]Or dered By: Yahir Foster on 12-11-2022 MCHC (RBC) [Mass/Vol] 30.7 g/dL 32-36 [facility] No Panel InformationOrdered By: Yahir Foster on 12-11-2022 Estimated GFR (MDRD) Amer 75 mL/min >[address] [facility] Comment on above: GFR Calc Estimated GFR (MDRD) Non-Af Amer 62 mL/min >[address] [facility] Comment on above: Non- GFR Calc Platelets bldOrdered By: Jos Foster on 12-11-2022 Platelets (Bld) [#/Vol] 297 10*3/uL 150-[address] [facility] Serum or plasma calcium milagros urement (mass/volume)Ordered By: Yahir Foster on 12-11-2022 Calcium [Mass/Vol] 9.2 mg/dL 8.5-10.1 [facility] Serum or plasma creatinine m easurement (mass/volume)Ordered By: Yahir Foster on 12-11-2022 Creatinine [Mass/Vol] 0.92 mg/dL 0.55-1.02 [facility] Comment on above: The validity of the calculated GFR & GFRAA in patients over 70 years has not been determined. Clinical correlation is essential. Serum or plasma urea nitroge n measurement (mass/volume)Ordered By: Yahir Foster on 12-11-2022 Urea nitrogen [Mass/Vol] 15 mg/dL 7-[address] [facility] Thin prep Papanicolaou smear with manual screeningOrdered By: Yahir Foster on 12-11-2022 Thin prep Papanicolaou smear with manual screening 5 5-[address] [facility] Basophil percentageOrdered B y: Jose Raul Pulliam on 11-27-2022 Chloride [Moles/Vol] 109 mmol/L 98-107 [facility] Glucose [Mass/Vol] 86 mg/dL 74-106 [facility] Potassium [Moles/Vol] 4.3 mmol/L 3.5-5.1 [facility] Sodium [Moles/Vol] 141 mmol/L 136-145 [facility] WBC (Bld) [#/Vol] 6.1 10*3/uL 4.4-11.0 [facility] Blood erythrocytes count (nu mber/volume)Ordered By: Jose Raul Pulliam on 11-27-2022 RBC (Bld) [#/Vol] 4.10 10*6/uL 4.2-5.4 [facility] Blood hemoglobin measurement (mass/volume)Ordered By: Jose Raul Pulliam on 11-27-2022 Hemoglobin (Bld) [Mass/Vol] 11.4 g/dL 12.0-15.[address] [facility] Blood platelet mean volumeOr dered By: Jose Raul Pulliam on 11-27-2022 Platelet mean volume (Bld) [Entitic vol] 10.2 fL 6.2-12.[address] [facility] Determination of erythrocyte mean corpuscular volume (MCV)Ordered By: Jose Raul Pulliam on 11-27-2022 MCV (RBC) [Entitic vol] 88.5 fL 81-99 [facility] Hematocrit Auto (Bld) [Volum e fraction]Ordered By: Jose Raul Pulliam on 11-27-2022 Hematocrit (Bld) [Volume fraction] 36.3 % 37-[address] [facility] Laboratory - Chemistry and C hemistry - challengeOrdered By: Jose Raul Pulliam on 11-27-2022 CO2 [Moles/Vol] 25.0 mmol/L 21.0-32.[address] [facility] Urea nitrogen/Creatinine [Mass ratio] 23.6 mg/mg 10- [facility] Laboratory - Hematology and Cell countsOrdered By: Jose Raul Pulliam on 11-27-2022 Erythrocyte distribution width (RBC) [Entitic vol] 48.2 fL 35.1-43.[address] [facility] Erythrocyte distribution width (RBC) [Ratio] 14.7 % 11.6-14.[address] [facility] MCH (RBC) [Entitic mass] 27.8 pg 27.0-32.[address] [facility] MCHC Auto (RBC) [Mass/Vol]Or dered By: Jose Raul Pulliam on 11-27-2022 MCHC (RBC) [Mass/Vol] 31.4 g/dL 32- [facility] No Panel InformationOrdered By: Jose Raul Pulliam on 11-27-2022 Estimated GFR (MDRD) Amer 93 mL/min >[address] [facility] Comment on above: GFR Calc Estimated GFR (MDRD) Non-Af Amer 77 mL/min >[address] [facility] Comment on above: Non- GFR Calc Platelets bldOrdered By: Sam Pulliam on 11-27-2022 Platelets (Bld) [#/Vol] 263 10*3/uL 150-[address] [facility] Serum or plasma calcium milagros urement (mass/volume)Ordered By: Jose Raul Pulliam on 11-27-2022 Calcium [Mass/Vol] 8.9 mg/dL 8.5-10.1 [facility] Serum or plasma creatinine m easurement (mass/volume)Ordered By: Jose Raul Pulliam on 11-27-2022 Creatinine [Mass/Vol] 0.76 mg/dL 0.55-1.02 [facility] Comment on above: The validity of the calculated GFR & GFRAA in patients over 70 years has not been determined. Clinical correlation is essential. Serum or plasma urea nitroge n measurement (mass/volume)Ordered By: Jose Raul Pulliam on 11-27-2022 Urea nitrogen [Mass/Vol] 18 mg/dL 7-[address] [facility] Thin prep Papanicolaou smear with manual screeningOrdered By: Jose Raul Pulliam on 11-27-2022 Thin prep Papanicolaou smear with manual screening 7 5-[address] [facility] Basophil percentageOrdered B y: Yahir Foster on 11-13-2022 Chloride [Moles/Vol] 111 mmol/L 98-107 [facility] Glucose [Mass/Vol] 90 mg/dL 74-106 [facility] Potassium [Moles/Vol] 4.1 mmol/L 3.5-5.1 [facility] Sodium [Moles/Vol] 142 mmol/L 136-145 [facility] WBC (Bld) [#/Vol] 6.0 10*3/uL 4.4-11.0 [facility] Blood erythrocytes count (nu mber/volume)Ordered By: Yahir Foster on 11-13-2022 RBC (Bld) [#/Vol] 4.01 10*6/uL 4.2-5.4 [facility] Blood hemoglobin measurement (mass/volume)Ordered By: Yahir Foster on 11-13-2022 Hemoglobin (Bld) [Mass/Vol] 11.0 g/dL 12.0-15.[address] [facility] Blood platelet mean volumeOr dered By: Yahir Foster on 11-13-2022 Platelet mean volume (Bld) [Entitic vol] 10.1 fL 6.2-12.[address] [facility] Determination of erythrocyte mean corpuscular volume (MCV)Ordered By: Yahir Foster on 11-13-2022 MCV (RBC) [Entitic vol] 89.3 fL 81-99 [facility] Hematocrit Auto (Bld) [Volum e fraction]Ordered By: Yahir Foster on 11-13-2022 Hematocrit (Bld) [Volume fraction] 35.8 % 37-[address] [facility] Laboratory - Chemistry and C hemistry - challengeOrdered By: Yahir Foster on 11-13-2022 CO2 [Moles/Vol] 26.0 mmol/L 21.0-32.[address] [facility] Urea nitrogen/Creatinine [Mass ratio] 19.7 mg/mg 10-[address] [facility] Laboratory - Hematology and Cell countsOrdered By: Yahir Foster on 11-13-2022 Erythrocyte distribution width (RBC) [Entitic vol] 47.7 fL 35.1-43.[address] [facility] Erythrocyte distribution width (RBC) [Ratio] 14.5 % 11.6-14.[address] [facility] MCH (RBC) [Entitic mass] 27.4 pg 27.0-32.[address] [facility] MCHC Auto (RBC) [Mass/Vol]Or dered By: Yahir Foster on 11-13-2022 MCHC (RBC) [Mass/Vol] 30.7 g/dL 32-36 [facility] No Panel InformationOrdered By: Yahir Foster on 11-13-2022 Estimated GFR (MDRD) Amer 93 mL/min >[address] [facility] Comment on above: GFR Calc Estimated GFR (MDRD) Non-Af Amer 77 mL/min >[address] [facility] Comment on above: Non- GFR Calc Platelets bldOrdered By: Jos Foster on 11-13-2022 Platelets (Bld) [#/Vol] 269 10*3/uL 150-[address] [facility] Serum or plasma calcium milagros urement (mass/volume)Ordered By: Yahir Foster on 11-13-2022 Calcium [Mass/Vol] 8.7 mg/dL 8.5-10.1 [facility] Serum or plasma creatinine m easurement (mass/volume)Ordered By: Yahir Foster on 11-13-2022 Creatinine [Mass/Vol] 0.76 mg/dL 0.55-1.02 [facility] Comment on above: The validity of the calculated GFR & GFRAA in patients over 70 years has not been determined. Clinical correlation is essential. Serum or plasma urea nitroge n measurement (mass/volume)Ordered By: Yahir Foster on 11-13-2022 Urea nitrogen [Mass/Vol] 15 mg/dL 7-[address] [facility] Thin prep Papanicolaou smear with manual screeningOrdered By: Yahir Foster on 11-13-2022 Thin prep Papanicolaou smear with manual screening 5 5-[address] [facility] Basophil percentageOrdered B y: Yahir Foster on 10-30-2022 Chloride [Moles/Vol] 110 mmol/L 98-107 [facility] Glucose [Mass/Vol] 97 mg/dL 74-106 [facility] Potassium [Moles/Vol] 4.4 mmol/L 3.5-5.1 [facility] Sodium [Moles/Vol] 143 mmol/L 136-145 [facility] WBC (Bld) [#/Vol] 5.4 10*3/uL 4.4-11.0 [facility] Blood erythrocytes count (nu mber/volume)Ordered By: Yahir Foster on 10-30-2022 RBC (Bld) [#/Vol] 4.29 10*6/uL 4.2-5.4 [facility] Blood hemoglobin measurement (mass/volume)Ordered By: Yahir Foster on 10-30-2022 Hemoglobin (Bld) [Mass/Vol] 11.9 g/dL 12.0-15.[address] [facility] Blood platelet mean volumeOr dered By: Yahir Foster on 10-30-2022 Platelet mean volume (Bld) [Entitic vol] 9.7 fL 6.2-12.[address] [facility] Determination of erythrocyte mean corpuscular volume (MCV)Ordered By: Yahir Foster on 10-30-2022 MCV (RBC) [Entitic vol] 89.3 fL 81-[address] [facility] Hematocrit Auto (Bld) [Volum e fraction]Ordered By: Yahir Foster on 10-30-2022 Hematocrit (Bld) [Volume fraction] 38.3 % 37-[address] [facility] Laboratory - Chemistry and C hemistry - challengeOrdered By: Yahir Foster on 10-30-2022 CO2 [Moles/Vol] 27.0 mmol/L 21.0-32.[address] [facility] Urea nitrogen/Creatinine [Mass ratio] 19.2 mg/mg 10-[address] [facility] Laboratory - Hematology and Cell countsOrdered By: Yahir Foster on 10-30-2022 Erythrocyte distribution width (RBC) [Entitic vol] 48.9 fL 35.1-43.[address] [facility] Erythrocyte distribution width (RBC) [Ratio] 14.9 % 11.6-14.[address] [facility] MCH (RBC) [Entitic mass] 27.7 pg 27.0-32.[address] [facility] MCHC Auto (RBC) [Mass/Vol]Or dered By: Yahir Foster on 10-30-2022 MCHC (RBC) [Mass/Vol] 31.1 g/dL 32-36 [facility] No Panel InformationOrdered By: Yahir Foster on 10-30-2022 Estimated GFR (MDRD) Amer 91 mL/min >[address] [facility] Comment on above: GFR Calc Estimated GFR (MDRD) Non-Af Amer 75 mL/min >[address] [facility] Comment on above: Non- GFR Calc Platelets bldOrdered By: Jos Foster on 10-30-2022 Platelets (Bld) [#/Vol] 255 10*3/uL 150-[address] [facility] Serum or plasma calcium milagros urement (mass/volume)Ordered By: Yahir Foster on 10-30-2022 Calcium [Mass/Vol] 8.9 mg/dL 8.5-10.1 [facility] Serum or plasma creatinine m easurement (mass/volume)Ordered By: Yahir Foster on 10-30-2022 Creatinine [Mass/Vol] 0.78 mg/dL 0.55-1.02 [facility] Comment on above: The validity of the calculated GFR & GFRAA in patients over 70 years has not been determined. Clinical correlation is essential. Serum or plasma urea nitroge n measurement (mass/volume)Ordered By: Yahir Foster on 10-30-2022 Urea nitrogen [Mass/Vol] 15 mg/dL 7-[address] [facility] Thin prep Papanicolaou smear with manual screeningOrdered By: Yahir Foster on 10-30-2022 Thin prep Papanicolaou smear with manual screening 6 5-[address] [facility] Basophil percentageOrdered B y: Yahir Foster on 10-16-2022 Chloride [Moles/Vol] 109 mmol/L 98-107 [facility] Glucose [Mass/Vol] 101 mg/dL 74-106 [facility] Comment on above: Fasting Glucose resu lt from 100 to 125 mg/dL suggests IMPAIRED HOMEOSTASIS per A.D.A. criteria. Potassium [Moles/Vol] 3.9 mmol/L 3.5-5.1 [facility] Sodium [Moles/Vol] 143 mmol/L 136-145 [facility] WBC (Bld) [#/Vol] 5.7 10*3/uL 4.4-11.0 [facility] Blood erythrocytes count (nu mber/volume)Ordered By: Yahir Foster on 10-16-2022 RBC (Bld) [#/Vol] 4.65 10*6/uL 4.2-5.4 [facility] Blood hemoglobin measurement (mass/volume)Ordered By: Yahir Foster on 10-16-2022 Hemoglobin (Bld) [Mass/Vol] 12.8 g/dL 12.0-15.[address] [facility] Blood platelet mean volumeOr dered By: Yahir Foster on 10-16-2022 Platelet mean volume (Bld) [Entitic vol] 9.8 fL 6.2-12.[address] [facility] Determination of erythrocyte mean corpuscular volume (MCV)Ordered By: Yahir Foster on 10-16-2022 MCV (RBC) [Entitic vol] 90.8 fL 81-99 [facility] Hematocrit Auto (Bld) [Volum e fraction]Ordered By: Yahir Foster on 10-16-2022 Hematocrit (Bld) [Volume fraction] 42.2 % 37-[address] [facility] Laboratory - Chemistry and C hemistry - challengeOrdered By: Yahir Foster on 10-16-2022 CO2 [Moles/Vol] 28.0 mmol/L 21.0-32.[address] [facility] Urea nitrogen/Creatinine [Mass ratio] 15.8 mg/mg 10-[address] [facility] Laboratory - Hematology and Cell countsOrdered By: Yahir Foster on 10-16-2022 Erythrocyte distribution width (RBC) [Entitic vol] 50.2 fL 35.1-43.[address] [facility] Erythrocyte distribution width (RBC) [Ratio] 15.1 % 11.6-14.[address] [facility] MCH (RBC) [Entitic mass] 27.5 pg 27.0-32.[address] [facility] MCHC Auto (RBC) [Mass/Vol]Or dered By: Yahir Foster on 10-16-2022 MCHC (RBC) [Mass/Vol] 30.3 g/dL 32-36 [facility] No Panel InformationOrdered By: Yahir Foster on 10-16-2022 Estimated GFR (MDRD) Amer 85 mL/min >[address] [facility] Comment on above: GFR Calc Estimated GFR (MDRD) Non-Af Amer 70 mL/min >[address] [facility] Comment on above: Non- GFR Calc Platelets bldOrdered By: Jos Fosetr on 10-16-2022 Platelets (Bld) [#/Vol] 324 10*3/uL 150-[address] [facility] Serum or plasma calcium milagros urement (mass/volume)Ordered By: Yahir Foster on 10-16-2022 Calcium [Mass/Vol] 9.1 mg/dL 8.5-10.1 [facility] Serum or plasma creatinine m easurement (mass/volume)Ordered By: Yahir Foster on 10-16-2022 Creatinine [Mass/Vol] 0.82 mg/dL 0.55-1.02 [facility] Comment on above: The validity of the calculated GFR & GFRAA in patients over 70 years has not been determined. Clinical correlation is essential. Serum or plasma urea nitroge n measurement (mass/volume)Ordered By: Yahir Foster on 10-16-2022 Urea nitrogen [Mass/Vol] 13 mg/dL 7-[address] [facility] Thin prep Papanicolaou smear with manual screeningOrdered By: Yahir Foster on 10-16-2022 Thin prep Papanicolaou smear with manual screening 6 5-[address] [facility] Basophil percentageOrdered B y: Jose Raul Pulliam on 10-02-2022 Chloride [Moles/Vol] 111 mmol/L 98-107 [facility] Glucose [Mass/Vol] 85 mg/dL 74-106 [facility] Potassium [Moles/Vol] 4.4 mmol/L 3.5-5.1 [facility] Sodium [Moles/Vol] 142 mmol/L 136-145 [facility] WBC (Bld) [#/Vol] 6.2 10*3/uL 4.4-11.0 [facility] Blood erythrocytes count (nu mber/volume)Ordered By: Jose Raul Pulliam on 10-02-2022 RBC (Bld) [#/Vol] 4.13 10*6/uL 4.2-5.4 [facility] Blood hemoglobin measurement (mass/volume)Ordered By: Jose Raul Pulliam on 10-02-2022 Hemoglobin (Bld) [Mass/Vol] 11.4 g/dL 12.0-15.[address] [facility] Blood platelet mean volumeOr dered By: Jose Raul Pulliam on 10-02-2022 Platelet mean volume (Bld) [Entitic vol] 10.4 fL 6.2-12.[address] [facility] Determination of erythrocyte mean corpuscular volume (MCV)Ordered By: Jose Raul Pulliam on 10-02-2022 MCV (RBC) [Entitic vol] 88.1 fL 81-99 [facility] Hematocrit Auto (Bld) [Volum e fraction]Ordered By: Jose Raul Pulliam on 10-02-2022 Hematocrit (Bld) [Volume fraction] 36.4 % 37-[address] [facility] Laboratory - Chemistry and C hemistry - challengeOrdered By: leandra Pulliam on 10-02-2022 CO2 [Moles/Vol] 22.0 mmol/L 21.0-32.[address] [facility] Urea nitrogen/Creatinine [Mass ratio] 18.1 mg/mg 10-[address] [facility] Laboratory - Hematology and Cell countsOrdered By: Jose Raul Pulliam on 10-02-2022 Erythrocyte distribution width (RBC) [Entitic vol] 48.1 fL 35.1-43.[address] [facility] Erythrocyte distribution width (RBC) [Ratio] 15.0 % 11.6-14.[address] [facility] MCH (RBC) [Entitic mass] 27.6 pg 27.0-32.[address] [facility] MCHC Auto (RBC) [Mass/Vol]Or dered By: Jose Raul Pulliam on 10-02-2022 MCHC (RBC) [Mass/Vol] 31.3 g/dL 32-36 [facility] No Panel InformationOrdered By: Jose Raul Pulliam on 10-02-2022 Estimated GFR (MDRD) Amer 99 mL/min >[address] [facility] Comment on above: GFR Calc Estimated GFR (MDRD) Non-Af Amer 82 mL/min >[address] [facility] Comment on above: Non- GFR Calc Whole Blood Vitamin B1 Level 146.2 nmol/L 66.5-200.[address] [facility] Comment on above: Performed at: [address] [id number] Director: Jw Sanabria MD, Phone: [phone] Platelets bldOrdered By: Samjessenia akhtarjennifer Pulliam on 10-02-2022 Platelets (Bld) [#/Vol] 243 10*3/uL 150-[address] [facility] Serum or plasma calcium milagros urement (mass/volume)Ordered By: Jose Raul Pulliam on 10-02-2022 Calcium [Mass/Vol] 8.9 mg/dL 8.5-10.1 [facility] Serum or plasma creatinine m easurement (mass/volume)Ordered By: Jose Raul Pulliam on 10-02-2022 Creatinine [Mass/Vol] 0.72 mg/dL 0.55-1.02 [facility] Comment on above: The validity of the calculated GFR & GFRAA in patients over 70 years has not been determined. Clinical correlation is essential. Serum or plasma folate measu rement (mass/volume)Ordered By: Jose Raul Pulliam on 10-02-2022 Folate [Mass/Vol] 64.60 ng/mL 3.1-55.4 [facility] Serum or plasma urea nitroge n measurement (mass/volume)Ordered By: Jose Raul Pulliam on 10-02-2022 Urea nitrogen [Mass/Vol] 13 mg/dL 7-[address] [facility] Thin prep Papanicolaou smear with manual screeningOrdered By: Jose Raul Pulliam on 10-02-2022 Thin prep Papanicolaou smear with manual screening 9 5-[address] [facility] Basophil percentageOrdered B y: Jose Raul Pulliam on 09-18-2022 Chloride [Moles/Vol] 110 mmol/L 98-107 [facility] Glucose [Mass/Vol] 98 mg/dL 74-106 [facility] Potassium [Moles/Vol] 4.0 mmol/L 3.5-5.1 [facility] Sodium [Moles/Vol] 142 mmol/L 136-145 [facility] WBC (Bld) [#/Vol] 6.5 10*3/uL 4.4-11.0 [facility] Blood erythrocytes count (nu mber/volume)Ordered By: Jose Raul Pulliam on 09-18-2022 RBC (Bld) [#/Vol] 4.71 10*6/uL 4.2-5.4 [facility] Blood hemoglobin measurement (mass/volume)Ordered By: Jose Raul Pulliam on 09-18-2022 Hemoglobin (Bld) [Mass/Vol] 13.2 g/dL 12.0-15.0 [facility] [facility] Blood platelet mean volumeOr dered By: Jos eRaul Pulliam on 09-18-2022 Platelet mean volume (Bld) [Entitic vol] 10.4 fL 6.2-12.[address] [facility] Determination of erythrocyte mean corpuscular volume (MCV)Ordered By: Jose Raul Pulliam on 09-18-2022 MCV (RBC) [Entitic vol] 86.8 fL 81-99 [facility] Hematocrit Auto (Bld) [Volum e fraction]Ordered By: Jose Raul Pulliam on 09-18-2022 Hematocrit (Bld) [Volume fraction] 40.9 % 37-[address] [facility] Laboratory - Chemistry and C hemistry - challengeOrdered By: Jose Raul Pulliam on 09-18-2022 CO2 [Moles/Vol] 24.0 mmol/L 21.0-32.[address] [facility] Urea nitrogen/Creatinine [Mass ratio] 20.5 mg/mg 10-[address] [facility] Laboratory - Hematology and Cell countsOrdered By: Jose Raul Pulliam on 09-18-2022 Erythrocyte distribution width (RBC) [Entitic vol] 48.3 fL 35.1-43.[address] [facility] Erythrocyte distribution width (RBC) [Ratio] 15.0 % 11.6-14.[address] [facility] MCH (RBC) [Entitic mass] 28.0 pg 27.0-32.[address] [facility] MCHC Auto (RBC) [Mass/Vol]Or dered By: Jose Raul Pulliam on 09-18-2022 MCHC (RBC) [Mass/Vol] 32.3 g/dL 32-36 [facility] No Panel InformationOrdered By: Jose Raul Pulliam on 09-18-2022 Estimated GFR (MDRD) Amer 84 mL/min >[address] [facility] Comment on above: GFR Calc Estimated GFR (MDRD) Non-Af Amer 70 mL/min >[address] [facility] Comment on above: Non- GFR Calc Platelets bldOrdered By: Sam Pulliam on 09-18-2022 Platelets (Bld) [#/Vol] 294 10*3/uL 150-[address] [facility] Serum or plasma calcium milagros urement (mass/volume)Ordered By: Jose Raul Pulliam on 09-18-2022 Calcium [Mass/Vol] 9.2 mg/dL 8.5-10.1 [facility] Serum or plasma creatinine m easurement (mass/volume)Ordered By: Jose Raul Pulliam on 09-18-2022 Creatinine [Mass/Vol] 0.83 mg/dL 0.55-1.02 [facility] Comment on above: The validity of the calculated GFR & GFRAA in patients over 70 years has not been determined. Clinical correlation is essential. Serum or plasma urea nitroge n measurement (mass/volume)Ordered By: Jose Raul Pulliam on 09-18-2022 Urea nitrogen [Mass/Vol] 17 mg/dL 7-[address] [facility] Thin prep Papanicolaou smear with manual screeningOrdered By: Jose Raul Pulliam on 09-18-2022 Thin prep Papanicolaou smear with manual screening 8 5-[address] [facility] Basophil percentageOrdered B y: Jose Rual Pulliam on 09-05-2022 Chloride [Moles/Vol] 109 mmol/L 98-107 [facility] Glucose [Mass/Vol] 75 mg/dL 74-106 [facility] Potassium [Moles/Vol] 3.9 mmol/L 3.5-5.1 [facility] Sodium [Moles/Vol] 140 mmol/L 136-145 [facility] WBC (Bld) [#/Vol] 5.4 10*3/uL 4.4-11.0 [facility] Blood erythrocytes count (nu mber/volume)Ordered By: Jose Raul Pulliam on 09-05-2022 RBC (Bld) [#/Vol] 4.08 10*6/uL 4.2-5.4 [facility] Blood hemoglobin measurement (mass/volume)Ordered By: Jose Raul Pulliam on 09-05-2022 Hemoglobin (Bld) [Mass/Vol] 11.0 g/dL 12.0-15.[address] [facility] Blood platelet mean volumeOr dered By: Jose Raul Pulliam on 09-05-2022 Platelet mean volume (Bld) [Entitic vol] 10.3 fL 6.2-12.[address] [facility] Determination of erythrocyte mean corpuscular volume (MCV)Ordered By: Jose Raul Pulliam on 09-05-2022 MCV (RBC) [Entitic vol] 90.4 fL 81-99 [facility] Hematocrit Auto (Bld) [Volum e fraction]Ordered By: Jose Raul Pulliam on 09-05-2022 Hematocrit (Bld) [Volume fraction] 36.9 % 37-[address] [facility] Laboratory - Chemistry and C hemistry - challengeOrdered By: Jose Raul Pulliam on 09-05-2022 CO2 [Moles/Vol] 24.0 mmol/L 21.0-32.[address] [facility] Urea nitrogen/Creatinine [Mass ratio] 19.6 mg/mg 10-[address] [facility] Laboratory - Hematology and Cell countsOrdered By: Jose Raul Pulliam on 09-05-2022 Erythrocyte distribution width (RBC) [Entitic vol] 50.2 fL 35.1-43.[address] [facility] Erythrocyte distribution width (RBC) [Ratio] 15.2 % 11.6-14.[address] [facility] MCH (RBC) [Entitic mass] 27.0 pg 27.0-32.[address] [facility] MCHC Auto (RBC) [Mass/Vol]Or dered By: Jose Raul Pulliam on 09-05-2022 MCHC (RBC) [Mass/Vol] 29.8 g/dL 32-36 [facility] No Panel InformationOrdered By: Jose Raul Pulliam on 09-05-2022 Estimated GFR (MDRD) Amer 100 mL/min >[address] [facility] Comment on above: GFR Calc Estimated GFR (MDRD) Non-Af Amer 83 mL/min >[address] [facility] Comment on above: Non- GFR Calc Platelets bldOrdered By: Sam Pulliam on 09-05-2022 Platelets (Bld) [#/Vol] 258 10*3/uL 150-[address] [facility] Serum or plasma calcium milagros urement (mass/volume)Ordered By: Jose Raul Pulliam on 09-05-2022 Calcium [Mass/Vol] 8.8 mg/dL 8.5-10.1 [facility] Serum or plasma creatinine m easurement (mass/volume)Ordered By: Jose Raul Pulliam on 09-05-2022 Creatinine [Mass/Vol] 0.72 mg/dL 0.55-1.02 [facility] Comment on above: The validity of the calculated GFR & GFRAA in patients over 70 years has not been determined. Clinical correlation is essential. Serum or plasma urea nitroge n measurement (mass/volume)Ordered By: Jose Raul Pulliam on 09-05-2022 Urea nitrogen [Mass/Vol] 14 mg/dL 7-[address] [facility] Thin prep Papanicolaou smear with manual screeningOrdered By: Jose Raul Pulliam on 09-05-2022 Thin prep Papanicolaou smear with manual screening 7 5-[address] [facility] Basophil percentageOrdered B y: Yahir Foster on 08-21-2022 Chloride [Moles/Vol] 111 mmol/L 98-107 [facility] Glucose [Mass/Vol] 98 mg/dL 74-106 [facility] Potassium [Moles/Vol] 4.3 mmol/L 3.5-5.1 [facility] Comment on above: Slight Hemolysis, Re sult may be falsely increased. Sodium [Moles/Vol] 140 mmol/L 136-145 [facility] WBC (Bld) [#/Vol] 6.3 10*3/uL 4.4-11.0 [facility] Blood erythrocytes count (nu mber/volume)Ordered By: Yahir Foster on 08-21-2022 RBC (Bld) [#/Vol] 4.60 10*6/uL 4.2-5.4 [facility] Blood hemoglobin measurement (mass/volume)Ordered By: Yahir Foster on 08-21-2022 Hemoglobin (Bld) [Mass/Vol] 12.6 g/dL 12.0-15.[address] [facility] Blood platelet mean volumeOr dered By: Yahir Foster on 08-21-2022 Platelet mean volume (Bld) [Entitic vol] 10.0 fL 6.2-12.[address] [facility] Determination of erythrocyte mean corpuscular volume (MCV)Ordered By: Yahir Foster on 08-21-2022 MCV (RBC) [Entitic vol] 87.4 fL 81-99 [facility] Hematocrit Auto (Bld) [Volum e fraction]Ordered By: Yahir Foster on 08-21-2022 Hematocrit (Bld) [Volume fraction] 40.2 % 37-[address] [facility] Laboratory - Chemistry and C hemistry - challengeOrdered By: Yahir Foster on 08-21-2022 CO2 [Moles/Vol] 23.0 mmol/L 21.0-32.[address] [facility] Urea nitrogen/Creatinine [Mass ratio] 16.9 mg/mg 10-[address] [facility] Laboratory - Hematology and Cell countsOrdered By: Yahir Foster on 08-21-2022 Erythrocyte distribution width (RBC) [Entitic vol] 47.8 fL 35.1-43.[address] [facility] Erythrocyte distribution width (RBC) [Ratio] 14.8 % 11.6-14.[address] [facility] MCH (RBC) [Entitic mass] 27.4 pg 27.0-32.[address] [facility] MCHC Auto (RBC) [Mass/Vol]Or dered By: Yahir Foster on 08-21-2022 MCHC (RBC) [Mass/Vol] 31.3 g/dL 32-36 [facility] No Panel InformationOrdered By: Yahir Foster on 08-21-2022 Estimated GFR (MDRD) Amer 85 mL/min >[address] [facility] Comment on above: GFR Calc Estimated GFR (MDRD) Non-Af Amer 70 mL/min >[address] [facility] Comment on above: Non- GFR Calc Platelets bldOrdered By: Jos Foster on 08-21-2022 Platelets (Bld) [#/Vol] 301 10*3/uL 150-[address] [facility] Serum or plasma calcium milagros urement (mass/volume)Ordered By: Yahir Foster on 08-21-2022 Calcium [Mass/Vol] 9.1 mg/dL 8.5-10.1 [facility] Serum or plasma creatinine m easurement (mass/volume)Ordered By: Yahir Foster on 08-21-2022 Creatinine [Mass/Vol] 0.83 mg/dL 0.55-1.02 [facility] Comment on above: The validity of the calculated GFR & GFRAA in patients over 70 years has not been determined. Clinical correlation is essential. Serum or plasma urea nitroge n measurement (mass/volume)Ordered By: Yahir Foster on 08-21-2022 Urea nitrogen [Mass/Vol] 14 mg/dL 7-[address] [facility] Thin prep Papanicolaou smear with manual screeningOrdered By: Yahir Foster on 08-21-2022 Thin prep Papanicolaou smear with manual screening 6 5-[address] [facility] Basophil percentageOrdered B y: Yahir Foster on 08-07-2022 Chloride [Moles/Vol] 110 mmol/L 98-107 [facility] Glucose [Mass/Vol] 86 mg/dL 74-106 [facility] Potassium [Moles/Vol] 4.1 mmol/L 3.5-5.1 [facility] Sodium [Moles/Vol] 142 mmol/L 136-145 [facility] WBC (Bld) [#/Vol] 6.1 10*3/uL 4.4-11.0 [facility] Blood erythrocytes count (nu mber/volume)Ordered By: Yahir Foster on 08-07-2022 RBC (Bld) [#/Vol] 4.45 10*6/uL 4.2-5.4 [facility] Blood hemoglobin measurement (mass/volume)Ordered By: Yahir Foster on 08-07-2022 Hemoglobin (Bld) [Mass/Vol] 12.0 g/dL 12.0-15.[address] [facility] Blood platelet mean volumeOr dered By: Yahir Foster on 08-07-2022 Platelet mean volume (Bld) [Entitic vol] 10.0 fL 6.2-12.[address] [facility] Determination of erythrocyte mean corpuscular volume (MCV)Ordered By: Yahir Foster on 08-07-2022 MCV (RBC) [Entitic vol] 88.5 fL 81-99 [facility] Hematocrit Auto (Bld) [Volum e fraction]Ordered By: Yahir Foster on 08-07-2022 Hematocrit (Bld) [Volume fraction] 39.4 % 37-[address] [facility] Laboratory - Chemistry and C hemistry - challengeOrdered By: Yahir Foster on 08-07-2022 CO2 [Moles/Vol] 24.0 mmol/L 21.0-32.[address] [facility] Urea nitrogen/Creatinine [Mass ratio] 18.4 mg/mg 10-[address] [facility] Laboratory - Hematology and Cell countsOrdered By: Yahir Foster on 08-07-2022 Erythrocyte distribution width (RBC) [Entitic vol] 48.8 fL 35.1-43.[address] [facility] Erythrocyte distribution width (RBC) [Ratio] 15.0 % 11.6-14.[address] [facility] MCH (RBC) [Entitic mass] 27.0 pg 27.0-32.[address] [facility] MCHC Auto (RBC) [Mass/Vol]Or dered By: Yahir Foster on 08-07-2022 MCHC (RBC) [Mass/Vol] 30.5 g/dL 32-36 [facility] No Panel InformationOrdered By: Yahir Foster on 08-07-2022 Estimated GFR (MDRD) Amer 86 mL/min >[address] [facility] Comment on above: GFR Calc Estimated GFR (MDRD) Non-Af Amer 71 mL/min >[address] [facility] Comment on above: Non- GFR Calc Platelets bldOrdered By: Jos Foster on 08-07-2022 Platelets (Bld) [#/Vol] 276 10*3/uL 150-[address] [facility] Serum or plasma calcium milagros urement (mass/volume)Ordered By: Yahir Foster on 08-07-2022 Calcium [Mass/Vol] 9.1 mg/dL 8.5-10.1 [facility] Serum or plasma creatinine m easurement (mass/volume)Ordered By: Yahir Foster on 08-07-2022 Creatinine [Mass/Vol] 0.81 mg/dL 0.55-1.02 [facility] Comment on above: The validity of the calculated GFR & GFRAA in patients over 70 years has not been determined. Clinical correlation is essential. Serum or plasma urea nitroge n measurement (mass/volume)Ordered By: Yahir Foster on 08-07-2022 Urea nitrogen [Mass/Vol] 15 mg/dL 7-[address] [facility] Thin prep Papanicolaou smear with manual screeningOrdered By: Yahir Foster on 08-07-2022 Thin prep Papanicolaou smear with manual screening 8 5-[address] [facility] Basophil percentageOrdered B y: Yahir Foster on 07-24-2022 Chloride [Moles/Vol] 106 mmol/L 98-107 [facility] Glucose [Mass/Vol] 85 mg/dL 74-106 [facility] Potassium [Moles/Vol] 3.9 mmol/L 3.5-5.1 [facility] Sodium [Moles/Vol] 141 mmol/L 136-145 [facility] WBC (Bld) [#/Vol] 7.2 10*3/uL 4.4-11.0 [facility] Blood erythrocytes count (nu mber/volume)Ordered By: Yahir Foster on 07-24-2022 RBC (Bld) [#/Vol] 4.67 10*6/uL 4.2-5.4 [facility] Blood hemoglobin measurement (mass/volume)Ordered By: Yahir Foster on 07-24-2022 Hemoglobin (Bld) [Mass/Vol] 12.8 g/dL 12.0-15.[address] [facility] Blood platelet mean volumeOr dered By: Yahir Foster on 07-24-2022 Platelet mean volume (Bld) [Entitic vol] 10.5 fL 6.2-12.[address] [facility] Determination of erythrocyte mean corpuscular volume (MCV)Ordered By: Yahir Foster on 07-24-2022 MCV (RBC) [Entitic vol] 87.6 fL 81-99 [facility] Hematocrit Auto (Bld) [Volum e fraction]Ordered By: Yahir Foster on 07-24-2022 Hematocrit (Bld) [Volume fraction] 40.9 % 37-[address] [facility] Laboratory - Chemistry and C hemistry - challengeOrdered By: Yahir Foster on 07-24-2022 CO2 [Moles/Vol] 27.0 mmol/L 21.0-32.[address] [facility] Urea nitrogen/Creatinine [Mass ratio] 17.9 mg/mg 10-[address] [facility] Laboratory - Hematology and Cell countsOrdered By: Yahir Foster on 07-24-2022 Erythrocyte distribution width (RBC) [Entitic vol] 46.5 fL 35.1-43.[address] [facility] Erythrocyte distribution width (RBC) [Ratio] 14.5 % 11.6-14.[address] [facility] MCH (RBC) [Entitic mass] 27.4 pg 27.0-32.[address] [facility] MCHC Auto (RBC) [Mass/Vol]Or dered By: Yahir Foster on 07-24-2022 MCHC (RBC) [Mass/Vol] 31.3 g/dL 32-36 [facility] No Panel InformationOrdered By: Yahir Foster on 07-24-2022 Estimated GFR (MDRD) Amer 90 mL/min >[address] [facility] Comment on above: GFR Calc Estimated GFR (MDRD) Non-Af Amer 75 mL/min >[address] [facility] Comment on above: Non- GFR Calc Platelets bldOrdered By: Jos Foster on 07-24-2022 Platelets (Bld) [#/Vol] 267 10*3/uL 150-[address] [facility] Serum or plasma calcium milagros urement (mass/volume)Ordered By: Yahir Foster on 07-24-2022 Calcium [Mass/Vol] 9.0 mg/dL 8.5-10.1 [facility] Serum or plasma creatinine m easurement (mass/volume)Ordered By: Yahir Foster on 07-24-2022 Creatinine [Mass/Vol] 0.78 mg/dL 0.55-1.02 [facility] Comment on above: The validity of the calculated GFR & GFRAA in patients over 70 years has not been determined. Clinical correlation is essential. Serum or plasma urea nitroge n measurement (mass/volume)Ordered By: Yahir Foster on 07-24-2022 Urea nitrogen [Mass/Vol] 14 mg/dL 7-[address] [facility] Thin prep Papanicolaou smear with manual screeningOrdered By: Yahir Foster on 07-24-2022 Thin prep Papanicolaou smear with manual screening 8 5-[address] [facility] Basophil percentageOrdered B y: Yahir Foster on 07-10-2022 Chloride [Moles/Vol] 108 mmol/L 98-107 [facility] Glucose [Mass/Vol] 89 mg/dL 74-106 [facility] Potassium [Moles/Vol] 4.2 mmol/L 3.5-5.1 [facility] Sodium [Moles/Vol] 143 mmol/L 136-145 [facility] WBC (Bld) [#/Vol] 5.9 10*3/uL 4.4-11.0 [facility] Blood erythrocytes count (nu mber/volume)Ordered By: Yahir Foster on 07-10-2022 RBC (Bld) [#/Vol] 4.24 10*6/uL 4.2-5.4 [facility] Blood hemoglobin measurement (mass/volume)Ordered By: Yahir Foster on 07-10-2022 Hemoglobin (Bld) [Mass/Vol] 11.9 g/dL 12.0-15.[address] [facility] Blood platelet mean volumeOr dered By: Yahir Foster on 07-10-2022 Platelet mean volume (Bld) [Entitic vol] 9.9 fL 6.2-12.[address] [facility] Determination of erythrocyte mean corpuscular volume (MCV)Ordered By: Yahir Foster on 07-10-2022 MCV (RBC) [Entitic vol] 87.3 fL 81-99 [facility] Hematocrit Auto (Bld) [Volum e fraction]Ordered By: Yahir Foster on 07-10-2022 Hematocrit (Bld) [Volume fraction] 37.0 % 37-[address] [facility] Laboratory - Chemistry and C hemistry - challengeOrdered By: Yahir Foster on 07-10-2022 CO2 [Moles/Vol] 24.0 mmol/L 21.0-32.[address] [facility] Urea nitrogen/Creatinine [Mass ratio] 19.9 mg/mg 10-[address] [facility] Laboratory - Hematology and Cell countsOrdered By: Yahir Foster on 07-10-2022 Erythrocyte distribution width (RBC) [Entitic vol] 46.5 fL 35.1-43.[address] [facility] Erythrocyte distribution width (RBC) [Ratio] 14.4 % 11.6-14.[address] [facility] MCH (RBC) [Entitic mass] 28.1 pg 27.0-32.[address] [facility] MCHC Auto (RBC) [Mass/Vol]Or dered By: Yahir Foster on 07-10-2022 MCHC (RBC) [Mass/Vol] 32.2 g/dL 32-36 [facility] No Panel InformationOrdered By: Yahir Foster on 07-10-2022 Estimated GFR (MDRD) Amer 88 mL/min >[address] [facility] Comment on above: GFR Calc Estimated GFR (MDRD) Non-Af Amer 72 mL/min >[address] [facility] Comment on above: Non- GFR Calc Platelets bldOrdered By: Jos Foster on 07-10-2022 Platelets (Bld) [#/Vol] 256 10*3/uL 150-[address] [facility] Serum or plasma calcium milagros urement (mass/volume)Ordered By: Yahir Foster on 07-10-2022 Calcium [Mass/Vol] 8.7 mg/dL 8.5-10.1 [facility] Serum or plasma creatinine m easurement (mass/volume)Ordered By: Yahir Foster on 07-10-2022 Creatinine [Mass/Vol] 0.80 mg/dL 0.55-1.02 [facility] Comment on above: The validity of the calculated GFR & GFRAA in patients over 70 years has not been determined. Clinical correlation is essential. Serum or plasma urea nitroge n measurement (mass/volume)Ordered By: Yahir Foster on 07-10-2022 Urea nitrogen [Mass/Vol] 16 mg/dL 7-[address] [facility] Thin prep Papanicolaou smear with manual screeningOrdered By: Yahir Foster on 07-10-2022 Thin prep Papanicolaou smear with manual screening 11 5-[address] [facility] Basophil percentageon 2021 Chloride [Moles/Vol] 109 mmol/L 98-107 [facility] Work Phone: Glucose [Mass/Vol] 86 mg/dL 74-106 [facility] Work Phone: Potassium [Moles/Vol] 4.1 mmol/L 3.5-5.1 [facility] Work Phone: Sodium [Moles/Vol] 144 mmol/L 136-145 [facility] Work Phone: WBC (Bld) [#/Vol] 5.8 10*3/uL 4.4-11.0 [facility] Work Phone: Blood erythrocytes count (nu mber/volume)on 06-26-2022 RBC (Bld) [#/Vol] 4.10 10*6/uL 4.2-5.4 [facility] Work Phone: Blood hemoglobin measurement (mass/volume)on 06-26-2022 Hemoglobin (Bld) [Mass/Vol] 11.4 g/dL 12.0-15.[address] [facility] Work Phone: Blood platelet mean volumeon 06-26-2022 Platelet mean volume (Bld) [Entitic vol] 10.0 fL 6.2-12.[address] [facility] Work Phone: Determination of erythrocyte mean corpuscular volume (MCV)on 06-26-2022 MCV (RBC) [Entitic vol] 89.0 fL 81-99 [facility] Work Phone: Hematocrit Auto (Bld) [Volum e fraction]on 06-26-2022 Hematocrit (Bld) [Volume fraction] 36.5 % 37-[address] [facility] Work Phone: Laboratory - Chemistry and C hemistry - challengeon 06-26-2022 CO2 [Moles/Vol] 25.0 mmol/L 21.0-32.[address] [facility] Work Phone: Urea nitrogen/Creatinine [Mass ratio] 18.7 mg/mg 10-[address] [facility] Work Phone: Laboratory - Hematology and Cell countson 06-26-2022 Erythrocyte distribution width (RBC) [Entitic vol] 46.3 fL 35.1-43.[address] [facility] Work Phone: Erythrocyte distribution width (RBC) [Ratio] 14.3 % 11.6-14.[address] [facility] Work Phone: MCH (RBC) [Entitic mass] 27.8 pg 27.0-32.[address] [facility] Work Phone: MCHC Auto (RBC) [Mass/Vol]on 06-26-2022 MCHC (RBC) [Mass/Vol] 31.2 g/dL 32-36 [facility] Work Phone: No Panel Informationon 06-26 Estimated GFR (MDRD) Amer 95 mL/min >[address] [facility] Work Phone: Comment on above: GFR Calc Estimated GFR (MDRD) Non-Af Amer 78 mL/min >[address] [facility] Work Phone: Comment on above: Non- GFR Calc Platelets bldon 06-26-2022 Platelets (Bld) [#/Vol] 239 10*3/uL 150-[address] [facility] Work Phone: Serum or plasma calcium milagros urement (mass/volume)on 06-26-2022 Calcium [Mass/Vol] 8.9 mg/dL 8.5-10.1 [facility] Work Phone: Serum or plasma creatinine m easurement (mass/volume)on 06-26-2022 Creatinine [Mass/Vol] 0.75 mg/dL 0.55-1.02 [facility] Work Phone: Comment on above: The validity of the calculated GFR & GFRAA in patients over 70 years has not been determined. Clinical correlation is essential. Serum or plasma urea nitroge n measurement (mass/volume)on 06-26-2022 Urea nitrogen [Mass/Vol] 14 mg/dL 7-[address] [facility] Work Phone: Thin prep Papanicolaou smear with manual screeningon 06-26-2022 Thin prep Papanicolaou smear with manual screening 5-[address] [facility] Work Phone: Basophil percentageon 2021 Chloride [Moles/Vol] 107 mmol/L 98-107 [facility] Work Phone: Glucose [Mass/Vol] 91 mg/dL 74-106 [facility] Work Phone: Potassium [Moles/Vol] 3.9 mmol/L 3.5-5.1 [facility] Work Phone: Sodium [Moles/Vol] 141 mmol/L 136-145 [facility] Work Phone: WBC (Bld) [#/Vol] 6.1 10*3/uL 4.4-11.0 [facility] Work Phone: Blood erythrocytes count (nu mber/volume)on 06-12-2022 RBC (Bld) [#/Vol] 4.62 10*6/uL 4.2-5.4 [facility] Work Phone: Blood hemoglobin measurement (mass/volume)on 06-12-2022 Hemoglobin (Bld) [Mass/Vol] 12.8 g/dL 12.0-15.[address] [facility] Work Phone: Blood platelet mean volumeon 06-12-2022 Platelet mean volume (Bld) [Entitic vol] 9.7 fL 6.2-12.[address] [facility] Work Phone: Determination of erythrocyte mean corpuscular volume (MCV)on 06-12-2022 MCV (RBC) [Entitic vol] 90.3 fL 81-99 [facility] Work Phone: Hematocrit Auto (Bld) [Volum e fraction]on 06-12-2022 Hematocrit (Bld) [Volume fraction] 41.7 % 37-[address] [facility] Work Phone: Laboratory - Chemistry and C hemistry - challengeon 06-12-2022 CO2 [Moles/Vol] 28.0 mmol/L 21.0-32.[address] [facility] Work Phone: Urea nitrogen/Creatinine [Mass ratio] 19.3 mg/mg 10-[address] [facility] Work Phone: Laboratory - Hematology and Cell countson 06-12-2022 Erythrocyte distribution width (RBC) [Entitic vol] 48.3 fL 35.1-43.[address] [facility] Work Phone: Erythrocyte distribution width (RBC) [Ratio] 14.6 % 11.6-14.[address] [facility] Work Phone: MCH (RBC) [Entitic mass] 27.7 pg 27.0-32.[address] [facility] Work Phone: MCHC Auto (RBC) [Mass/Vol]on 06-12-2022 MCHC (RBC) [Mass/Vol] 30.7 g/dL 32-36 [facility] Work Phone: No Panel Informationon 06-12 Estimated GFR (MDRD) Amer 91 mL/min >[address] [facility] Work Phone: Comment on above: GFR Calc Estimated GFR (MDRD) Non-Af Amer 75 mL/min >[address] [facility] Work Phone: Comment on above: Non- GFR Calc Platelets bldon 06-12-2022 Platelets (Bld) [#/Vol] 293 10*3/uL 150-[address] [facility] Work Phone: Serum or plasma calcium milagros urement (mass/volume)on 06-12-2022 Calcium [Mass/Vol] 9.3 mg/dL 8.5-10.1 [facility] Work Phone: Serum or plasma creatinine m easurement (mass/volume)on 06-12-2022 Creatinine [Mass/Vol] 0.78 mg/dL 0.55-1.02 [facility] Work Phone: Comment on above: The validity of the calculated GFR & GFRAA in patients over 70 years has not been determined. Clinical correlation is essential. Serum or plasma urea nitroge n measurement (mass/volume)on 06-12-2022 Urea nitrogen [Mass/Vol] 15 mg/dL 7-[address] [facility] Work Phone: Thin prep Papanicolaou smear with manual screeningon 06-12-2022 Thin prep Papanicolaou smear with manual screening 6 5-[address] [facility] Work Phone: Basophil percentageon 2021 Chloride [Moles/Vol] 108 mmol/L 98-107 [facility] Work Phone: Glucose [Mass/Vol] 88 mg/dL 74-106 [facility] Work Phone: Potassium [Moles/Vol] 4.0 mmol/L 3.5-5.[address] [facility] [address] Work [facility]: Sodium [Moles/Vol] 140 mmol/L 136-145 [facility] Work Phone: WBC (Bld) [#/Vol] 6.0 10*3/uL 4.4-11.0 [facility] Work Phone: Blood erythrocytes count (nu mber/volume)on 05-29-2022 RBC (Bld) [#/Vol] 4.13 10*6/uL 4.2-5.4 [facility]: Blood hemoglobin measurement (mass/volume)on 05-29-2022 Hemoglobin (Bld) [Mass/Vol] 11.7 g/dL 12.0-15.[address] [facility] Work Phone: Blood platelet mean volumeon 05-29-2022 Platelet mean volume (Bld) [Entitic vol] 10.1 fL 6.2-12.[address] [facility] Work Phone: Determination of erythrocyte mean corpuscular volume (MCV)on 05-29-2022 MCV (RBC) [Entitic vol] 89.6 fL 81-99 [facility] Work Phone: Hematocrit Auto (Bld) [Volum e fraction]on 05-29-2022 Hematocrit (Bld) [Volume fraction] 37.0 % 37-[address] [facility] Work Phone: Laboratory - Chemistry and C hemistry - challengeon 05-29-2022 CO2 [Moles/Vol] 25.0 mmol/L 21.0-32.[address] [facility] Work Phone: Urea nitrogen/Creatinine [Mass ratio] 16.8 mg/mg 10-[address] [facility] Work Phone: Laboratory - Hematology and Cell countson 05-29-2022 Erythrocyte distribution width (RBC) [Entitic vol] 46.7 fL 35.1-43.[address] [facility] Work Phone: Erythrocyte distribution width (RBC) [Ratio] 14.3 % 11.6-14.[address] [facility] Work Phone: MCH (RBC) [Entitic mass] 28.3 pg 27.0-32.[address] [facility] Work Phone: MCHC Auto (RBC) [Mass/Vol]on 05-29-2022 MCHC (RBC) [Mass/Vol] 31.6 g/dL 32-36 [facility] Work Phone: No Panel Informationon 05-29 Estimated GFR (MDRD) Amer 92 mL/min >[address] [facility] Work Phone: Comment on above: GFR Calc Estimated GFR (MDRD) Non-Af Amer 76 mL/min >[address] [facility] Work Phone: Comment on above: Non- GFR Calc Platelets bldon 05-29-2022 Platelets (Bld) [#/Vol] 256 10*3/uL 150-[address] [facility] Work Phone: Serum or plasma calcium milagros urement (mass/volume)on 05-29-2022 Calcium [Mass/Vol] 9.0 mg/dL 8.5-10.1 [facility] Work Phone: Serum or plasma creatinine m easurement (mass/volume)on 05-29-2022 Creatinine [Mass/Vol] 0.77 mg/dL 0.55-1.02 [facility] Work Phone: Comment on above: The validity of the calculated GFR & GFRAA in patients over 70 years has not been determined. Clinical correlation is essential. Serum or plasma urea nitroge n measurement (mass/volume)on 05-29-2022 Urea nitrogen [Mass/Vol] 13 mg/dL 7-[address] [facility] Work Phone: Thin prep Papanicolaou smear with manual screeningon 05-29-2022 Thin prep Papanicolaou smear with manual screening 7 5-[address] [facility] Work Phone: Basophil percentageon 2021 Chloride [Moles/Vol] 111 mmol/L 98-[address] [facility] Work Phone: Glucose [Mass/Vol] 84 mg/dL 74-106 [facility] Work Phone: Potassium [Moles/Vol] 4.1 mmol/L 3.5-5.1 [facility] Work Phone: Sodium [Moles/Vol] 142 mmol/L 136-145 [facility] Work Phone: WBC (Bld) [#/Vol] 5.7 10*3/uL 4.4-11.0 [facility] Work Phone: Blood erythrocytes count (nu mber/volume)on 05-16-2022 RBC (Bld) [#/Vol] 4.06 10*6/uL 4.2-5.4 [facility] Work Phone: Blood hemoglobin measurement (mass/volume)on 05-16-2022 Hemoglobin (Bld) [Mass/Vol] 11.6 g/dL 12.0-15.[address] [facility] Work Phone: Blood platelet mean volumeon 05-16-2022 Platelet mean volume (Bld) [Entitic vol] 10.2 fL 6.2-12.[address] [facility] Work Phone: Determination of erythrocyte mean corpuscular volume (MCV)on 05-16-2022 MCV (RBC) [Entitic vol] 89.9 fL 81-99 [facility] Work Phone: Hematocrit Auto (Bld) [Volum e fraction]on 05-16-2022 Hematocrit (Bld) [Volume fraction] 36.5 % 37-[address] [facility] Work Phone: Laboratory - Chemistry and C hemistry - challengeon 05-16-2022 CO2 [Moles/Vol] 25.0 mmol/L 21.0-32.[address] [facility] Work Phone: Urea nitrogen/Creatinine [Mass ratio] 20.6 mg/mg 10-[address] [facility] Work Phone: Laboratory - Hematology and Cell countson 05-16-2022 Erythrocyte distribution width (RBC) [Entitic vol] 48.6 fL 35.1-43.[address] [facility] Work Phone: Erythrocyte distribution width (RBC) [Ratio] 14.6 % 11.6-14.[address] [facility] Work Phone: MCH (RBC) [Entitic mass] 28.6 pg 27.0-32.[address] [facility] Work Phone: MCHC Auto (RBC) [Mass/Vol]on 05-16-2022 MCHC (RBC) [Mass/Vol] 31.8 g/dL 32-36 [facility] Work Phone: No Panel Informationon 05-16 Estimated GFR (MDRD) Amer 98 mL/min >[address] [facility] Work Phone: Comment on above: GFR Calc Estimated GFR (MDRD) Non-Af Amer 81 mL/min >[address] [facility] Work Phone: Comment on above: Non- GFR Calc Platelets bldon 05-16-2022 Platelets (Bld) [#/Vol] 247 10*3/uL 150-[address] [facility] Work Phone: Serum or plasma calcium milagros urement (mass/volume)on 05-16-2022 Calcium [Mass/Vol] 9.0 mg/dL 8.5-10.1 [facility] Work Phone: Serum or plasma creatinine m easurement (mass/volume)on 05-16-2022 Creatinine [Mass/Vol] 0.73 mg/dL 0.55-1.02 [facility] Work Phone: Comment on above: The validity of the calculated GFR & GFRAA in patients over 70 years has not been determined. Clinical correlation is essential. Serum or plasma urea nitroge n measurement (mass/volume)on 05-16-2022 Urea nitrogen [Mass/Vol] 15 mg/dL 7-[address] [facility] Work Phone: Thin prep Papanicolaou smear with manual screeningon 05-16-2022 Thin prep Papanicolaou smear with manual screening 6 5-[address] [facility] Work Phone: Basophil percentageon 2021 Chloride [Moles/Vol] 111 mmol/L 98-107 [facility] Work Phone: Glucose [Mass/Vol] 90 mg/dL 74-106 [facility] Work Phone: Potassium [Moles/Vol] 4.2 mmol/L 3.5-5.[address] [facility] [address] Work Phone: Sodium [Moles/Vol] 141 mmol/L 136-145 [facility] Work Phone: WBC (Bld) [#/Vol] 5.9 10*3/uL 4.4-11.0 [facility] Work Phone: Blood erythrocytes count (nu mber/volume)on 05-01-2022 RBC (Bld) [#/Vol] 3.99 10*6/uL 4.2-5.4 [facility] Work Phone: Blood hemoglobin measurement (mass/volume)on 05-01-2022 Hemoglobin (Bld) [Mass/Vol] 11.2 g/dL 12.0-15.[address] [facility] Work Phone: Blood platelet mean volumeon 05-01-2022 Platelet mean volume (Bld) [Entitic vol] 10.1 fL 6.2-12.[address] [facility] Work Phone: Determination of erythrocyte mean corpuscular volume (MCV)on 05-01-2022 MCV (RBC) [Entitic vol] 89.7 fL 81-99 [facility] Work Phone: Hematocrit Auto (Bld) [Volum e fraction]on 05-01-2022 Hematocrit (Bld) [Volume fraction] 35.8 % 37-[address] [facility] Work Phone: Laboratory - Chemistry and C hemistry - challengeon 05-01-2022 CO2 [Moles/Vol] 26.0 mmol/L 21.0-32.[address] [facility] Work Phone: Urea nitrogen/Creatinine [Mass ratio] 17.1 mg/mg 10-[address] [facility] Work Phone: Laboratory - Hematology and Cell countson 05-01-2022 Erythrocyte distribution width (RBC) [Entitic vol] 48.2 fL 35.1-43.[address] [facility] Work Phone: Erythrocyte distribution width (RBC) [Ratio] 14.7 % 11.6-14.[address] [facility] Work Phone: MCH (RBC) [Entitic mass] 28.1 pg 27.0-32.[address] [facility] Work Phone: MCHC Auto (RBC) [Mass/Vol]on 05-01-2022 MCHC (RBC) [Mass/Vol] 31.3 g/dL 32-36 [facility] Work Phone: No Panel Informationon 05-01 Estimated GFR (MDRD) Amer 93 mL/min >[address] [facility] Work Phone: Comment on above: GFR Calc Estimated GFR (MDRD) Non-Af Amer 77 mL/min >[address] [facility] Work Phone: Comment on above: Non- GFR Calc Platelets bldon 05-01-2022 Platelets (Bld) [#/Vol] 254 10*3/uL 150-[address] [facility] Work Phone: Serum or plasma calcium milagros urement (mass/volume)on 05-01-2022 Calcium [Mass/Vol] 9.0 mg/dL 8.5-10.1 [facility] Work Phone: Serum or plasma creatinine m easurement (mass/volume)on 05-01-2022 Creatinine [Mass/Vol] 0.76 mg/dL 0.55-1.02 [facility] Work Phone: Comment on above: The validity of the calculated GFR & GFRAA in patients over 70 years has not been determined. Clinical correlation is essential. Serum or plasma urea nitroge n measurement (mass/volume)on 05-01-2022 Urea nitrogen [Mass/Vol] 13 mg/dL 7-[address] [facility] Work Phone: Thin prep Papanicolaou smear with manual screeningon 05-01-2022 Thin prep Papanicolaou smear with manual screening 4 5-[address] [facility] Work Phone: Basophil percentageon 2021 Chloride [Moles/Vol] 110 mmol/L 98-107 [facility] Work Phone: Glucose [Mass/Vol] 91 mg/dL 74-106 [facility] Work Phone: Potassium [Moles/Vol] 4.1 mmol/L 3.5-5.1 [facility] Work Phone: Sodium [Moles/Vol] 140 mmol/L 136-145 [facility] Work Phone: WBC (Bld) [#/Vol] 6.3 10*3/uL 4.4-11.0 [facility] Work Phone: Blood erythrocytes count (nu mber/volume)on 04-17-2022 RBC (Bld) [#/Vol] 4.06 10*6/uL 4.2-5.4 [facility] Work Phone: Blood hemoglobin measurement (mass/volume)on 04-17-2022 Hemoglobin (Bld) [Mass/Vol] 11.6 g/dL 12.0-15.[address] [facility] Work Phone: Blood platelet mean volumeon 04-17-2022 Platelet mean volume (Bld) [Entitic vol] 9.8 fL 6.2-12.[address] [facility] Work Phone: Determination of erythrocyte mean corpuscular volume (MCV)on 04-17-2022 MCV (RBC) [Entitic vol] 89.2 fL 81-99 [facility] Work Phone: Hematocrit Auto (Bld) [Volum e fraction]on 04-17-2022 Hematocrit (Bld) [Volume fraction] 36.2 % 37-[address] [facility] Work Phone: Laboratory - Chemistry and C hemistry - challengeon 04-17-2022 CO2 [Moles/Vol] 25.0 mmol/L 21.0-32.[address] [facility] Work Phone: Urea nitrogen/Creatinine [Mass ratio] 24.4 mg/mg 10-[address] [facility] Work Phone: Laboratory - Hematology and Cell countson 04-17-2022 Erythrocyte distribution width (RBC) [Entitic vol] 49.6 fL 35.1-43.[address] [facility] Work Phone: Erythrocyte distribution width (RBC) [Ratio] 15.0 % 11.6-14.[address] [facility] Work Phone: MCH (RBC) [Entitic mass] 28.6 pg 27.0-32.[address] [facility] Work Phone: MCHC Auto (RBC) [Mass/Vol]on 04-17-2022 MCHC (RBC) [Mass/Vol] 32.0 g/dL 32-36 [facility] Work Phone: No Panel Informationon 04-17 Estimated GFR (MDRD) Amer 86 mL/min >[address] [facility] Work Phone: Comment on above: GFR Calc Estimated GFR (MDRD) Non-Af Amer 71 mL/min >[address] [facility] Work Phone: Comment on above: Non- GFR Calc Platelets bldon 04-17-2022 Platelets (Bld) [#/Vol] 246 10*3/uL 150-[address] [facility] Work Phone: Serum or plasma calcium milagros urement (mass/volume)on 04-17-2022 Calcium [Mass/Vol] 8.7 mg/dL 8.5-10.1 [facility] Work Phone: Serum or plasma creatinine m easurement (mass/volume)on 04-17-2022 Creatinine [Mass/Vol] 0.82 mg/dL 0.55-1.02 [facility] Work Phone: Comment on above: The validity of the calculated GFR & GFRAA in patients over 70 years has not been determined. Clinical correlation is essential. Serum or plasma urea nitroge n measurement (mass/volume)on 04-17-2022 Urea nitrogen [Mass/Vol] 20 mg/dL 7-[address] [facility] Work Phone: Thin prep Papanicolaou smear with manual screeningon 04-17-2022 Thin prep Papanicolaou smear with manual screening 5 5-[address] [facility] Work Phone: Basophil percentageon 2021 Chloride [Moles/Vol] 111 mmol/L 98-107 [facility] Work Phone: Glucose [Mass/Vol] 90 mg/dL 74-106 [facility] Work Phone: Potassium [Moles/Vol] 4.2 mmol/L 3.5-5.1 [facility] Work Phone: Sodium [Moles/Vol] 141 mmol/L 136-145 [facility] Work Phone: WBC (Bld) [#/Vol] 5.9 10*3/uL 4.4-11.0 [facility] Work Phone: Blood erythrocytes count (nu mber/volume)on 04-03-2022 RBC (Bld) [#/Vol] 4.13 10*6/uL 4.2-5.4 [facility] Work Phone: Blood hemoglobin measurement (mass/volume)on 04-03-2022 Hemoglobin (Bld) [Mass/Vol] 11.6 g/dL 12.0-15.[address] [facility] Work Phone: Blood platelet mean volumeon 04-03-2022 Platelet mean volume (Bld) [Entitic vol] 10.1 fL 6.2-12.[address] [facility] Work Phone: Determination of erythrocyte mean corpuscular volume (MCV)on 04-03-2022 MCV (RBC) [Entitic vol] 89.6 fL 81-99 [facility] Work Phone: Hematocrit Auto (Bld) [Volum e fraction]on 04-03-2022 Hematocrit (Bld) [Volume fraction] 37.0 % 37-[address] [facility] Work Phone: Laboratory - Chemistry and C hemistry - challengeon 04-03-2022 CO2 [Moles/Vol] 26.0 mmol/L 21.0-32.[address] [facility] Work Phone: Urea nitrogen/Creatinine [Mass ratio] 21.2 mg/mg 10-[address] [facility] Work Phone: Laboratory - Hematology and Cell countson 04-03-2022 Erythrocyte distribution width (RBC) [Entitic vol] 50.1 fL 35.1-43.[address] [facility] Work Phone: Erythrocyte distribution width (RBC) [Ratio] 15.1 % 11.6-14.[address] [facility] Work Phone: MCH (RBC) [Entitic mass] 28.1 pg 27.0-32.[address] [facility] Work Phone: MCHC Auto (RBC) [Mass/Vol]on 04-03-2022 MCHC (RBC) [Mass/Vol] 31.4 g/dL 32-[address] [facility] Work Phone: No Panel Informationon 04-03 Estimated GFR (MDRD) Amer 94 mL/min >[address] [facility] Work Phone: Comment on above: GFR Calc Estimated GFR (MDRD) Non-Af Amer 78 mL/min >[address] [facility] Work Phone: Comment on above: Non- GFR Calc Platelets bldon 04-03-2022 Platelets (Bld) [#/Vol] 254 10*3/uL 150-[address] [facility] Work Phone: Serum or plasma calcium milagros urement (mass/volume)on 04-03-2022 Calcium [Mass/Vol] 9.0 mg/dL 8.5-10.1 [facility] Work Phone: Serum or plasma creatinine m easurement (mass/volume)on 04-03-2022 Creatinine [Mass/Vol] 0.75 mg/dL 0.55-1.02 [facility] Work Phone: Comment on above: The validity of the calculated GFR & GFRAA in patients over 70 years has not been determined. Clinical correlation is essential. Serum or plasma urea nitroge n measurement (mass/volume)on 04-03-2022 Urea nitrogen [Mass/Vol] 16 mg/dL 7-[address] [facility] Work Phone: Thin prep Papanicolaou smear with manual screeningon 04-03-2022 Thin prep Papanicolaou smear with manual screening 4 5-[address] [facility] Work Phone: Basophil percentageon 2021 Chloride [Moles/Vol] 107 mmol/L 98-107 [facility] Work Phone: Glucose [Mass/Vol] 90 mg/dL 74-106 [facility] Work Phone: Potassium [Moles/Vol] 4.2 mmol/L 3.5-5.1 [facility] Work Phone: Sodium [Moles/Vol] 142 mmol/L 136-145 [facility] Work Phone: WBC (Bld) [#/Vol] 6.1 10*3/uL 4.4-11.0 [facility] Work Phone: Blood erythrocytes count (nu mber/volume)on 03-20-2022 RBC (Bld) [#/Vol] 4.07 10*6/uL 4.2-5.4 [facility] Work Phone: Blood hemoglobin measurement (mass/volume)on 03-20-2022 Hemoglobin (Bld) [Mass/Vol] 11.5 g/dL 12.0-15.[address] [facility] Work Phone: Blood platelet mean volumeon 03-20-2022 Platelet mean volume (Bld) [Entitic vol] 9.8 fL 6.2-12.[address] [facility] Work Phone: Determination of erythrocyte mean corpuscular volume (MCV)on 03-20-2022 MCV (RBC) [Entitic vol] 88.7 fL 81-99 [facility] Work Phone: Hematocrit Auto (Bld) [Volum e fraction]on 03-20-2022 Hematocrit (Bld) [Volume fraction] 36.1 % 37-[address] [facility] Work Phone: Laboratory - Chemistry and C hemistry - challengeon 03-20-2022 CO2 [Moles/Vol] 27.0 mmol/L 21.0-32.[address] [facility] Work Phone: Urea nitrogen/Creatinine [Mass ratio] 19.5 mg/mg 10-[address] [facility] Work Phone: Laboratory - Hematology and Cell countson 03-20-2022 Erythrocyte distribution width (RBC) [Entitic vol] 50.1 fL 35.1-43.[address] [facility] Work Phone: Erythrocyte distribution width (RBC) [Ratio] 15.3 % 11.6-14.[address] [facility] Work Phone: MCH (RBC) [Entitic mass] 28.3 pg 27.0-32.[address] [facility] Work Phone: MCHC Auto (RBC) [Mass/Vol]on 03-20-2022 MCHC (RBC) [Mass/Vol] 31.9 g/dL 32-[address] [facility] Work Phone: No Panel Informationon 03-20 Estimated GFR (MDRD) Amer 92 mL/min >[address] [facility] Work Phone: Comment on above: GFR Calc Estimated GFR (MDRD) Non-Af Amer 76 mL/min >[address] [facility] Work Phone: Comment on above: Non- GFR Calc Platelets bldon 03-20-2022 Platelets (Bld) [#/Vol] 282 10*3/uL 150-[address] [facility] Work Phone: Serum or plasma calcium milagros urement (mass/volume)on 03-20-2022 Calcium [Mass/Vol] 8.8 mg/dL 8.5-10.1 [facility] Work Phone: Serum or plasma creatinine m easurement (mass/volume)on 03-20-2022 Creatinine [Mass/Vol] 0.77 mg/dL 0.55-1.02 [facility] Work Phone: Comment on above: The validity of the calculated GFR & GFRAA in patients over 70 years has not been determined. Clinical correlation is essential. Serum or plasma urea nitroge n measurement (mass/volume)on 03-20-2022 Urea nitrogen [Mass/Vol] 15 mg/dL 7-[address] [facility] Work Phone: Thin prep Papanicolaou smear with manual screeningon 03-20-2022 Thin prep Papanicolaou smear with manual screening 8 5-[address] [facility] Work Phone: Basophil percentageon 2021 Chloride [Moles/Vol] 110 mmol/L 98-107 [facility] Work Phone: Glucose [Mass/Vol] 89 mg/dL 74-106 [facility] Work Phone: Potassium [Moles/Vol] 4.1 mmol/L 3.5-5.1 [facility] Work Phone: Sodium [Moles/Vol] 141 mmol/L 136-145 [facility] Work Phone: WBC (Bld) [#/Vol] 6.7 10*3/uL 4.4-11.0 [facility] Work Phone: Blood erythrocytes count (nu mber/volume)on 03-06-2022 RBC (Bld) [#/Vol] 4.08 10*6/uL 4.2-5.4 [facility] Work Phone: Blood hemoglobin measurement (mass/volume)on 03-06-2022 Hemoglobin (Bld) [Mass/Vol] 11.5 g/dL 12.0-15.[address] [facility] Work Phone: Blood platelet mean volumeon 03-06-2022 Platelet mean volume (Bld) [Entitic vol] 10.2 fL 6.2-12.[address] [facility] Work Phone: Determination of erythrocyte mean corpuscular volume (MCV)on 03-06-2022 MCV (RBC) [Entitic vol] 89.0 fL 81-99 [facility] Work Phone: Hematocrit Auto (Bld) [Volum e fraction]on 03-06-2022 Hematocrit (Bld) [Volume fraction] 36.3 % 37-[address] [facility] Work Phone: Laboratory - Chemistry and C hemistry - challengeon 03-06-2022 CO2 [Moles/Vol] 26.0 mmol/L 21.0-32.[address] [facility] Work Phone: Urea nitrogen/Creatinine [Mass ratio] 23.0 mg/mg 10-[address] [facility] Work Phone: Laboratory - Hematology and Cell countson 03-06-2022 Erythrocyte distribution width (RBC) [Entitic vol] 49.8 fL 35.1-43.[address] [facility] Work Phone: Erythrocyte distribution width (RBC) [Ratio] 15.3 % 11.6-14.[address] [facility] Work Phone: MCH (RBC) [Entitic mass] 28.2 pg 27.0-32.[address] [facility] Work Phone: MCHC Auto (RBC) [Mass/Vol]on 03-06-2022 MCHC (RBC) [Mass/Vol] 31.7 g/dL 32-[address] [facility] Work Phone: No Panel Informationon 03-06 Estimated GFR (MDRD) Amer 91 mL/min >[address] [facility] Work Phone: Comment on above: GFR Calc Estimated GFR (MDRD) Non-Af Amer 75 mL/min >[address] [facility] Work Phone: Comment on above: Non- GFR Calc Platelets bldon 03-06-2022 Platelets (Bld) [#/Vol] 248 10*3/uL 150-[address] [facility] Work Phone: Serum or plasma calcium milagros urement (mass/volume)on 03-06-2022 Calcium [Mass/Vol] 8.8 mg/dL 8.5-10.1 [facility] Work Phone: Serum or plasma creatinine m easurement (mass/volume)on 03-06-2022 Creatinine [Mass/Vol] 0.78 mg/dL 0.55-1.02 [facility] Work Phone: Comment on above: The validity of the calculated GFR & GFRAA in patients over 70 years has not been determined. Clinical correlation is essential. Serum or plasma urea nitroge n measurement (mass/volume)on 03-06-2022 Urea nitrogen [Mass/Vol] 18 mg/dL 7-[address] [facility] Work Phone: Thin prep Papanicolaou smear with manual screeningon 03-06-2022 Thin prep Papanicolaou smear with manual screening 5 5-[address] [facility] Work Phone: Basophil percentageon 2021 Chloride [Moles/Vol] 111 mmol/L 98-107 [facility] Work Phone: Glucose [Mass/Vol] 85 mg/dL 74-106 [facility] Work Phone: Potassium [Moles/Vol] 4.1 mmol/L 3.5-5.1 [facility] Work Phone: Sodium [Moles/Vol] 143 mmol/L 136-145 [facility] Work Phone: WBC (Bld) [#/Vol] 7.0 10*3/uL 4.4-11.0 [facility] Work Phone: Blood erythrocytes count (nu mber/volume)on 02-20-2022 RBC (Bld) [#/Vol] 4.62 10*6/uL 4.2-5.4 [facility] Work Phone: Blood hemoglobin measurement (mass/volume)on 02-20-2022 Hemoglobin (Bld) [Mass/Vol] 12.8 g/dL 12.0-15.[address] [facility] Work Phone: Blood platelet mean volumeon 02-20-2022 Platelet mean volume (Bld) [Entitic vol] 10.0 fL 6.2-12.[address] [facility] Work Phone: Determination of erythrocyte mean corpuscular volume (MCV)on 02-20-2022 MCV (RBC) [Entitic vol] 88.5 fL 81-99 [facility] Work Phone: Hematocrit Auto (Bld) [Volum e fraction]on 02-20-2022 Hematocrit (Bld) [Volume fraction] 40.9 % 37-[address] [facility] Work Phone: Laboratory - Chemistry and C hemistry - challengeon 02-20-2022 CO2 [Moles/Vol] 26.0 mmol/L 21.0-32.[address] [facility] Work Phone: Urea nitrogen/Creatinine [Mass ratio] 23.3 mg/mg 10-[address] [facility] Work Phone: Laboratory - Hematology and Cell countson 02-20-2022 Erythrocyte distribution width (RBC) [Entitic vol] 49.1 fL 35.1-43.[address] [facility] Work Phone: Erythrocyte distribution width (RBC) [Ratio] 15.1 % 11.6-14.[address] [facility] Work Phone: MCH (RBC) [Entitic mass] 27.7 pg 27.0-32.[address] [facility] Work Phone: MCHC Auto (RBC) [Mass/Vol]on 02-20-2022 MCHC (RBC) [Mass/Vol] 31.3 g/dL 32-36 [facility] Work Phone: No Panel Informationon 02-20 Estimated GFR (MDRD) Amer 98 mL/min >[address] [facility] Work Phone: Comment on above: GFR Calc Estimated GFR (MDRD) Non-Af Amer 81 mL/min >[address] [facility] Work Phone: Comment on above: Non- GFR Calc Platelets bldon 02-20-2022 Platelets (Bld) [#/Vol] 275 10*3/uL 150-[address] [facility] Work Phone: Serum or plasma calcium milagros urement (mass/volume)on 02-20-2022 Calcium [Mass/Vol] 9.0 mg/dL 8.5-10.1 [facility] Work Phone: Serum or plasma creatinine m easurement (mass/volume)on 02-20-2022 Creatinine [Mass/Vol] 0.73 mg/dL 0.55-1.02 [facility] Work Phone: Comment on above: The validity of the calculated GFR & GFRAA in patients over 70 years has not been determined. Clinical correlation is essential. Serum or plasma urea nitroge n measurement (mass/volume)on 02-20-2022 Urea nitrogen [Mass/Vol] 17 mg/dL 7-[address] [facility] Work Phone: Thin prep Papanicolaou smear with manual screeningon 02-20-2022 Thin prep Papanicolaou smear with manual screening 6 5-[address] [facility] Work Phone: Basophil percentageon 2021 Chloride [Moles/Vol] 107 mmol/L 98-107 [facility] Work Phone: Glucose [Mass/Vol] 84 mg/dL 74-106 [facility] Work Phone: Potassium [Moles/Vol] 4.1 mmol/L 3.5-5.1 [facility] Work Phone: Sodium [Moles/Vol] 138 mmol/L 136-145 [facility] Work Phone: WBC (Bld) [#/Vol] 4.3 10*3/uL 4.4-11.0 [facility] Work Phone: Blood erythrocytes count (nu mber/volume)on 02-07-2022 RBC (Bld) [#/Vol] 4.53 10*6/uL 4.2-5.4 [facility] Work Phone: Blood hemoglobin measurement (mass/volume)on 02-07-2022 Hemoglobin (Bld) [Mass/Vol] 12.6 g/dL 12.0-15.[address] [facility] Work Phone: Blood platelet mean volumeon 02-07-2022 Platelet mean volume (Bld) [Entitic vol] 10.3 fL 6.2-12.[address] [facility] Work Phone: Determination of erythrocyte mean corpuscular volume (MCV)on 02-07-2022 MCV (RBC) [Entitic vol] 89.0 fL 81-99 [facility] Work Phone: Hematocrit Auto (Bld) [Volum e fraction]on 02-07-2022 Hematocrit (Bld) [Volume fraction] 40.3 % 37-[address] [facility] Work Phone: Laboratory - Chemistry and C hemistry - challengeon 02-07-2022 CO2 [Moles/Vol] 24.0 mmol/L 21.0-32.[address] [facility] Work Phone: Urea nitrogen/Creatinine [Mass ratio] 21.4 mg/mg 10-[address] [facility] Work Phone: Laboratory - Hematology and Cell countson 02-07-2022 Erythrocyte distribution width (RBC) [Entitic vol] 53.2 fL 35.1-43.[address] [facility] Work Phone: Erythrocyte distribution width (RBC) [Ratio] 16.2 % 11.6-14.[address] [facility] Work Phone: MCH (RBC) [Entitic mass] 27.8 pg 27.0-32.[address] [facility] Work Phone: MCHC Auto (RBC) [Mass/Vol]on 02-07-2022 MCHC (RBC) [Mass/Vol] 31.3 g/dL 32-36 [facility] Work Phone: No Panel Informationon 02-07 Estimated GFR (MDRD) Amer 89 mL/min >[address] [facility] Work Phone: Comment on above: GFR Calc Estimated GFR (MDRD) Non-Af Amer 74 mL/min >[address] [facility] Work Phone: Comment on above: Non- GFR Calc Platelets bldon 02-07-2022 Platelets (Bld) [#/Vol] 226 10*3/uL 150-[address] [facility] Work Phone: Serum or plasma calcium milagros urement (mass/volume)on 02-07-2022 Calcium [Mass/Vol] 8.7 mg/dL 8.5-10.1 [facility] Work Phone: Serum or plasma creatinine m easurement (mass/volume)on 02-07-2022 Creatinine [Mass/Vol] 0.79 mg/dL 0.55-1.02 [facility] Work Phone: Comment on above: The validity of the calculated GFR & GFRAA in patients over 70 years has not been determined. Clinical correlation is essential. Serum or plasma urea nitroge n measurement (mass/volume)on 02-07-2022 Urea nitrogen [Mass/Vol] 17 mg/dL 7-[address] [facility] Work Phone: Thin prep Papanicolaou smear with manual screeningon 02-07-2022 Thin prep Papanicolaou smear with manual screening 7 5-[address] [facility] Work Phone: Basophil percentageon 2021 Chloride [Moles/Vol] 111 mmol/L 98-107 [facility] Work Phone: Glucose [Mass/Vol] 85 mg/dL 74-106 [facility] Work Phone: Potassium [Moles/Vol] 4.2 mmol/L 3.5-5.[address] [facility] Work Phone: Sodium [Moles/Vol] 141 mmol/L 136-145 [facility] Work Phone: WBC (Bld) [#/Vol] 5.2 10*3/uL 4.4-11.0 [facility] Work Phone: Blood erythrocytes count (nu mber/volume)on 01-30-2022 RBC (Bld) [#/Vol] 4.34 10*6/uL 4.2-5.4 [facility] Work Phone: Blood hemoglobin measurement (mass/volume)on 01-30-2022 Hemoglobin (Bld) [Mass/Vol] 12.4 g/dL 12.0-15.[address] [facility] Work Phone: Blood platelet mean volumeon 01-30-2022 Platelet mean volume (Bld) [Entitic vol] 9.9 fL 6.2-12.[address] [facility] Work Phone: Determination of erythrocyte mean corpuscular volume (MCV)on 01-30-2022 MCV (RBC) [Entitic vol] 89.6 fL 81-99 [facility] Work Phone: Hematocrit Auto (Bld) [Volum e fraction]on 01-30-2022 Hematocrit (Bld) [Volume fraction] 38.9 % 37-[address] [facility] Work Phone: Laboratory - Chemistry and C hemistry - challengeon 01-30-2022 CO2 [Moles/Vol] 26.0 mmol/L 21.0-32.[address] [facility] Work Phone: Urea nitrogen/Creatinine [Mass ratio] 18.1 mg/mg 10-[address] [facility] Work Phone: Laboratory - Hematology and Cell countson 01-30-2022 Erythrocyte distribution width (RBC) [Entitic vol] 51.9 fL 35.1-43.[address] [facility] Work Phone: Erythrocyte distribution width (RBC) [Ratio] 15.7 % 11.6-14.[address] [facility] Work Phone: MCH (RBC) [Entitic mass] 28.6 pg 27.0-32.[address] [facility] Work Phone: MCHC Auto (RBC) [Mass/Vol]on 01-30-2022 MCHC (RBC) [Mass/Vol] 31.9 g/dL 32-36 [facility] Work Phone: No Panel Informationon 01-30 Estimated GFR (MDRD) Amer 92 mL/min >[address] [facility] Work Phone: Comment on above: GFR Calc Estimated GFR (MDRD) Non-Af Amer 76 mL/min >[address] [facility] Work Phone: Comment on above: Non- GFR Calc Platelets bldon 01-30-2022 Platelets (Bld) [#/Vol] 266 10*3/uL 150-[address] [facility] Work Phone: Serum or plasma calcium milagros urement (mass/volume)on 01-30-2022 Calcium [Mass/Vol] 8.6 mg/dL 8.5-10.1 [facility] Work Phone: Serum or plasma creatinine m easurement (mass/volume)on 01-30-2022 Creatinine [Mass/Vol] 0.77 mg/dL 0.55-1.02 [facility] Work Phone: Comment on above: The validity of the calculated GFR & GFRAA in patients over 70 years has not been determined. Clinical correlation is essential. Serum or plasma urea nitroge n measurement (mass/volume)on 01-30-2022 Urea nitrogen [Mass/Vol] 14 mg/dL 7-[address] [facility] Work Phone: Thin prep Papanicolaou smear with manual screeningon 01-30-2022 Thin prep Papanicolaou smear with manual screening 4 5-[address] [facility] Work Phone: Vital Signs Date Time Vital Sign Value Performing Clinician Faraz cuello 12-31-2022 21:32-0400 Diastolic blood pressure 63 mm[Hg] Dr. Jaki Anderson Work Phone: [facility] 12-31-2022 21:32-0400 Heart rate 82 /min Dr. Jaki Anderson Work Phone: [facility] 12-31-2022 21:32-0400 Respiratory rate 16 /min Dr. Jaki Anderson Work Phone: [facility] 12-31-2022 21:32-0400 SaO2% (BldA) [Mass fraction] 95 % Dr. Jaki Anderson Work Phone: [facility] 12-31-2022 21:32-0400 Systolic blood pressure 139 mm[Hg] Dr. Jaki Anderson Work Phone: [facility] 12-31-2022 16:12-0400 Body height 175.[address] Jaki Anderson Work Phone: [facility] 12-31-2022 16:12-0400 Body mass index (BMI) [Ratio] 28.3 kg/m2 Dr. Jaki Anderson Work Phone: [facility] 12-31-2022 16:12-0400 Body temperature 97.1 [degF] Dr. Jaki Anderson Work Phone: [facility] 12-31-2022 16:12-0400 Body weight 87.[address] Jaki Anderson Work Phone: [facility] Encounters Encounter Date Encounter Type Care Provider Facility Start: 04-14-2025 ambulatory Jose Raul Ritter cility:[facility] Start: 04-14-2025 Registered Referred Jose Raul Pulliam MD [facility] Start: 03-10-2025 End: 03-10-[address] Jaki Anderson MD Work Phone: [facility] Start: 03-10-2025 End: 03-10-[address] Jose Raul Pulliam MD -[facility] Work Phone: Start: 02-24-2025 End: 02-24-[address] Jaki Anderson MD Work Phone: [facility] Start: 02-24-2025 End: 02-24-2025 Patient encounter procedure Krissy Alex NP[place] [place] [facility] [place] Work Phone: Start: 01-27-2025 End: 01-27-[address] Jaki Anderson MD Work Phone: [facility] Start: 01-27-2025 End: 01-27-[address] Jose Raul Pulliam MD -[facility] Work Phone: Start: 12-12-2024 End: 12-12-[address] Jaki Anderson MD Work Phone: [facility] Work Phone: Start: 12-12-2024 End: 12-12-2024 Patient encounter procedure Krissy Alex NP-[facility] [place] [facility] [place] Work Phone: Start: 11-11-2024 End: 11-11-[address] Jose Raul Pulliam MD -[facility] Work Phone: Start: 11-11-2024 End: 11-11-[address] Jaki Anderson MD Work Phone: [facility] Work Phone: Start: 11-11-2024 End: 11-11-2024 Departed Referred Jose Raul Pulliam MD [facility] Start: 11-11-2024 End: 11-11-2024 ambulatory Jose Raul MCDERMOTT Facility:[facility] Start: 10-13-2024 ambulatory Jose Raul MCDERMOTT Fa cility:[facility] Start: 10-13-2024 [facility] Start: 09-16-2024 End: 09-16-2024 ambulatory Effrankbe Jaqueline Facility:[facility] Start: 09-16-2024 End: 09-16-[address] Jose Raul Pulliam MD -[facility] Work Phone: Start: 09-16-2024 ambulatory Efdiandracarolynbe Carltonjocelyne OLS Fa cility:[facility] Start: 09-16-2024 [facility] Start: 08-19-2024 End: 08-19-2024 Departed Referred Jose Raul Pulliam MD [facility] Start: 08-19-2024 End: 08-19-2024 ambulatory Jaki Anderson Facility:[facility] Start: 07-22-2024 End: 07-22-2024 ambulatory Efewongbe Oleghe Facility:[facility] Start: 07-22-2024 End: 07-22-2024 ambulatory Efewongbe Oleghe OLS Facility:[facility] Start: 06-26-2024 End: 06-26-2024 ambulatory Jakidanielle Anderson [place] [place] Start: 06-24-2024 End: 06-24-2024 ambulatory Efewongbe Oleghe OLS Facility:[facility] Start: 05-27-2024 ambulatory Efewongbe Oleghe OLS Fa cility:[facility] Start: 05-13-2024 End: 05-13-2024 ambulatory Efewongbe Oleghe [place] Start: 04-29-2024 ambulatory Efewongbe Oleghe OLS Fa cility:[facility] Start: 12-11-2023 End: 12-11-[address] Jaki Anderson Work Phone: [facility] Work Phone: Start: 12-11-2023 End: 12-11-[address] Jaki Anderson Work Phone: [facility] Start: 11-27-2023 End: 11-27-[address] Jaki Anderson Work Phone: [facility] Work Phone: Start: 11-27-2023 End: 11-27-[address] Jaki Anderson Work Phone: [facility] Start: 11-27-[address] Jaki Anderson Work Phone: [facility] Start: 11-20-2023 End: 11-20-[address] Jaki Anderson Work Phone: [facility] Work Phone: Start: 11-13-2023 End: 11-13-[address] Jaki Anderson Work Phone: [facility] Work Phone: Start: 11-13-2023 End: 11-13-[address] Jaki Anderson Work Phone: [facility] Start: 11-13-[address] Jaki Anderson Work Phone: [facility] Start: 10-30-2023 End: 10-30-[address] Jaki Anderson Work Phone: [facility] Work Phone: Start: 10-30-2023 End: 10-30-[address] Jaki Anderson Work Phone: [facility] Start: 10-30-[address] Jaki Anderson Work Phone: [facility] Start: 10-16-2023 End: 10-16-[address] Jaki Anderson Work Phone: [facility] Work Phone: Start: 10-16-2023 End: 10-16-[address] Jaki Anderson Work Phone: [facility] Start: 10-16-[address] Jaki Anderson Work Phone: [facility] Start: 10-11-2023 End: 10-11-[address] Jaki Anderson Work Phone: [facility] Work Phone: Start: 10-02-2023 End: 10-02-[address] Jaki Anderson Work Phone: [facility] Work Phone: Start: 10-02-2023 End: 10-02-[address] Jaki Anderson Work Phone: [facility] Start: 10-02-[address] Jaki Anderson Work Phone: [facility] Start: 09-18-2023 End: 09-18-[address] Jaki Anderson Work Phone: [facility] Work Phone: Start: 09-18-2023 End: 09-18-[address] Jaki Anderson Work Phone: [facility] Start: 09-18-[address] Jaki Anderson Work Phone: [facility] Start: 09-11-2023 End: 09-11-[address] Jaki Anderson Work Phone: [facility] Work Phone: Start: 09-04-2023 End: 09-04-[address] Jaki Anderson Work Phone: [facility] Work Phone: Start: 09-04-2023 End: 09-04-[address] Jaki Anderson Work Phone: [facility] Start: 08-23-2023 End: 08-23-[address] Jaki Anderson Work Phone: [facility] Work Phone: Start: 08-21-2023 End: 08-21-[address] Jaki Anderson Work Phone: [facility] Work Phone: Start: 08-21-2023 End: 08-21-[address] Jaki Anderson Work Phone: [facility] Start: 08-21-[address] Jaki Anderson Work Phone: [facility] Start: 08-07-2023 End: 08-07-[address] Jaki Anderson Work Phone: [facility] Work Phone: Start: 08-07-2023 End: 08-07-[address] Jaki Anderson Work Phone: [facility] Start: 07-23-2023 End: 07-23-[address] Jaki Anderson Work Phone: [facility] Work Phone: Start: 07-23-2023 End: 07-23-[address] Jaki Anderson Work Phone: [facility] Start: 07-17-2023 End: 07-17-[address] Jaki Anderson Work Phone: [facility] Work Phone: Start: 07-09-2023 End: 07-09-[address] Jaki Anderson Work Phone: [facility] Work Phone: Start: 07-09-2023 End: 07-09-[address] Jaki Anderson Work Phone: [facility] Start: 06-25-2023 End: 06-25-[address] Jaki Anderson Work Phone: [facility] Work Phone: Start: 06-25-2023 End: 06-25-[address] Jaki Anderson Work Phone: [facility] Start: 06-11-2023 End: 06-11-[address] Jaki Anderson Work Phone: [facility] Start: 05-28-2023 End: 05-28-[address] Jaki Anderson Work Phone: [facility] Start: 05-28-[address] Jaki Anderson Work Phone: [facility] Start: 05-15-2023 End: 05-15-[address] Jaki Anderson Work Phone: [facility] Work Phone: Start: 05-09-2023 End: 05-09-[address] Jaki Anderson Work Phone: [facility] Work Phone: Start: 04-30-2023 End: 04-30-[address] Jaki Anderson Work Phone: [facility] Work Phone: Start: 04-30-2023 End: 04-30-[address] Jaki Anderson Work Phone: [facility] Start: 04-30-[address] Jaki Anderson Work Phone: [facility] Start: 04-16-2023 End: 04-16-[address] Jaki Anderson Work Phone: [facility] Work Phone: Start: 04-16-2023 End: 04-16-[address] Jaki Anderson Work Phone: [facility] Start: 04-16-[address] Jaki Anderson Work Phone: [facility] Start: 04-02-2023 End: 04-02-[address] Jaki Anderson Work Phone: [facility] Work Phone: Start: 04-02-2023 End: 04-02-[address] Jaki Anderson Work Phone: [facility] Start: 04-02-[address] Jaki Anderson Work Phone: [facility] Start: 03-20-2023 End: 03-20-[address] Jaki Anderson Work Phone: [facility] Work Phone: Start: 03-19-2023 End: 03-19-[address] Jaki Anderson Work Phone: [facility] Work Phone: Start: 03-19-2023 End: 03-19-[address] Jaki Anderson Work Phone: [facility] Start: 03-19-[address] Jaki Anderson Work Phone: [facility] Start: 03-05-2023 End: 03-05-[address] Jaki Anderson Work Phone: [facility] Work Phone: Start: 03-05-2023 End: 03-05-[address] Jaki Anderson Work Phone: [facility] Start: 03-05-[address] Jaki Anderson Work Phone: [facility] Start: 02-20-2023 End: 02-20-[address] Jaki Anderson Work Phone: [facility] Work Phone: Start: 02-20-2023 End: 02-20-[address] Jaki Anderson Work Phone: [facility] Start: 02-20-[address] Jaki Anderson Work Phone: [facility] Start: 02-06-2023 End: 02-06-[address] Jaki Anderson Work Phone: [facility] Work Phone: Start: 02-06-2023 End: 02-06-[address] Jaki Anderson Work Phone: [facility] Start: 02-06-[address] Jaki Anderson Work Phone: [facility] Start: 01-29-2023 End: 01-29-[address] Jaki Anderson Work Phone: [facility] Work Phone: Start: 01-29-2023 End: 01-29-[address] Jaki Anderson Work Phone: [facility] Start: 01-22-2023 End: 01-22-[address] Jaki Anderson Work Phone: [facility] Start: 01-16-2023 End: 01-16-[address] Jaki Anderson Work Phone: [facility] Work Phone: Start: 01-13-2023 End: 01-13-[address] Jaki Anderson Work Phone: [facility] Work Phone: Start: 01-08-2023 End: 01-08-[address] Jaki Anderson Work Phone: [facility] Work Phone: Start: 01-08-2023 End: 01-08-[address] Jaki Anderson Work Phone: [facility] Start: 01-01-2023 End: 01-01-[address] Jaki Anderson Work Phone: [facility] Work Phone: Start: 12-31-2022 End: 12-31-2022 Emergency department patient visit Dr. Jaki Anderson Work Phone: [facility] Start: 12-25-2022 End: 12-25-[address] Jaki Anderson Work Phone: [facility] Work Phone: Start: 12-25-2022 End: 12-25-[address] Jaki Anderson Work Phone: [facility] Start: 12-25-[address] Jaki Anderson Work Phone: [facility] Start: 12-11-2022 End: 12-11-[address] Jaki Anderson Work Phone: [facility] Start: 12-11-[address] Jaki Anderson Work Phone: [facility] Start: 11-28-2022 End: 11-28-[address] Jaki Anderson Work Phone: [facility] Start: 11-27-2022 End: 11-27-[address] Jaki Anderson Work Phone: [facility] Work Phone: Start: 11-27-2022 End: 11-27-[address] Jaki Anderson Work Phone: [facility] Start: 11-27-[address] Jaki Anderson Work Phone: [facility] Start: 11-13-2022 End: 11-13-[address] Jaki Anderson Work Phone: [facility] Work Phone: Start: 11-13-2022 End: 11-13-[address] Jaki Anderson Work Phone: [facility] Start: 10-30-2022 End: 10-30-[address] Jaki Anderson Work Phone: [facility] Start: 10-30-2022 End: 10-30-[address] Jaki Anderson Work Phone: [facility] Start: 10-30-[address] Jaki Anderson Work Phone: [facility] Start: 10-16-2022 End: 10-16-[address] Jaki Anderson Work Phone: [facility] Start: 10-16-2022 End: 10-16-[address] Jaki Anderson Work Phone: [facility] Work Phone: Start: 10-16-2022 End: 10-16-[address] Jaki Anderson Work Phone: [facility] Start: 10-16-[address] Jaki Anderson Work Phone: [facility] Start: 10-02-2022 End: 10-02-[address] Jaki Anderson Work Phone: [facility] Start: 09-25-2022 End: 09-25-[address] Jaki Anderson Work Phone: [facility] Start: 09-18-2022 End: 09-18-[address] Jaki Anderson Work Phone: [facility] Work Phone: Start: 09-18-2022 End: 09-18-[address] Jaki Anderson Work Phone: [facility] Start: 09-18-[address] Jaki Anderson Work Phone: [facility] Start: 09-05-2022 End: 09-05-[address] Jaki Anderson Work Phone: [facility] Work Phone: Start: 09-05-2022 End: 09-05-[address] Jaki Anderson Work Phone: [facility] Start: 09-05-[address] Jaki Anderson Work Phone: [facility] Start: 08-21-2022 End: 08-21-[address] Jaki Anderson Work Phone: [facility] Start: 08-21-[address] Jaki Anderson Work Phone: [facility] Start: 08-07-2022 End: 08-07-[address] Jaki Anderson Work Phone: [facility] Work Phone: Start: 08-07-2022 End: 08-07-[address] Jaki Anderson Work Phone: [facility] Start: 08-07-[address] Jaki Anderson Work Phone: [facility] Start: 07-24-2022 End: 07-24-[address] Jaki Anderson Work Phone: [facility] Work Phone: Start: 07-24-2022 End: 07-24-[address] Jaki Anderson Work Phone: [facility] Start: 07-24-[address] Jaki Anderson Work Phone: [facility] Start: 07-18-2022 End: 07-18-[address] Jaki Anderson Work Phone: [facility] Start: 07-10-2022 End: 07-10-[address] Jaki Anderson Work Phone: [facility] Work Phone: Start: 07-10-2022 End: 07-10-[address] Jaki Anderson Work Phone: [facility] Start: 07-10-[address] Jaki Anderson Work Phone: [facility] Start: 06-26-2022 End: 06-26-[address] Jaki Anderson Work Phone: [facility] Work Phone: Start: 06-26-2022 End: 06-26-[address] Jaik Anderson Work Phone: [facility] Start: 06-26-[address] Jaki Anderson Work Phone: [facility] Start: 06-15-2022 End: 06-15-[address] Jaki Anderson Work Phone: [facility] Start: 06-12-2022 End: 06-12-[address] Jaki Anderson Work Phone: [facility] Work Phone: Start: 06-12-2022 End: 06-12-[address] Jaki Anderson Work Phone: [facility] Start: 05-29-2022 End: 05-29-[address] Jaki Anderson Work Phone: [facility] Work Phone: Start: 05-29-2022 End: 05-29-[address] Jaki Anderson Work Phone: [facility] Start: 05-29-[address] Jaki Anderson Work Phone: [facility] Start: 05-16-2022 End: 05-16-[address] Jaki Anderson Work Phone: [facility] Work Phone: Start: 05-16-2022 End: 05-16-[address] Jaki Anderson Work Phone: [facility] Start: 05-16-[address] Jaki Anderson Work Phone: [facility] Start: 05-01-2022 End: 05-01-[address] Jaki nAderson Work Phone: [facility] Work Phone: Start: 05-01-2022 End: 05-01-[address] Jaki Anderson Work Phone: [facility] Start: 05-01-[address] Jaki Anderson Work Phone: [facility] Start: 04-17-2022 End: 04-17-[address] Jaki Anderson Work Phone: [facility] Work Phone: Start: 04-17-2022 End: 04-17-[address] Jaki Anderson Work Phone: [facility] Start: 04-03-2022 End: 04-03-[address] Jaki Anderson Work Phone: [facility] Start: 04-03-2022 Registered Referred [facility] Start: 03-22-2022 End: 03-22-[address] Jaki Anderson Work Phone: [facility] Start: 03-20-2022 End: 03-20-2022 Departed Referred [facility] Start: 03-06-2022 End: 03-06-2022 Departed Referred [facility] Start: 02-20-2022 End: 02-20-2022 Departed Referred [facility] Start: 02-20-2022 Registered Referred [facility] Start: 02-07-2022 End: 02-07-2022 Departed Referred [facility] Start: 02-07-2022 Registered Referred [facility] Start: 01-30-2022 End: 01-30-2022 Departed Referred [facility] Start: 01-22-2022 End: 01-22-2022 Emergency department patient visit [facility] Procedures Date Procedure Procedure [...] Date Care Activity Detail Author Start: 12-31-2022 [facility] Start: 12-31-2022 Consultation [facility] Bacteria identified in Urine by Culture Urine Culture [facility] Patient Education ED CAREGIVER S UPPORT for DEMENTIA [facility] Work Phone: Patient referral [facility] Work Phone: Immunizations Immunization Date Immunization Notes Care Provider Stone de santiago 12-09-2020 Covid (Pfizer) Dr. Jaki maciel Work Phone: [facility] 11-18-2020 Covid (Pfizer) Dr. Jaki maciel Work Phone: [facility] Payers Date Payer Category Payer Unknown [id number] 2024 Medicaid [id number] 2024 Self-pay [id number] Unknown [id number] 2.16.8 [id number] Unknown [id number] 2.16.8 [id number] Unknown [id number] 2.16.8 [id number] Unknown [id number] 2.16.8 [id number] Unknown [id number] 2.16.8 [id number] Unknown [id number] 2.16.8 [id number] Unknown [id number] 2.16.8 [id number] Unknown [id number] 2.16.8 [id number] Unknown [id number] 2.16.8 [id number] Unknown [id number] 2.16.8 [id number] Unknown [id number] 2.16.8 [id number] Unknown [id number] 2.16.8 [id number] Unknown [id number] 2.16.8 [id number] Unknown [id number] 2.16.8 [id number] Unknown [id number] 2.16.8 [id number] Unknown [id number] 2.16.8 [id number] Unknown [id number] 2.16.8 [id number] Unknown [id number] 2.16.8 [id number] Social History Date Type Detail Facility Start: 07-06-2020 End: 12-31-2022 Tobacco smoking status SCIS Unknown if ever smoked [facility] Start: 1940 Sex Assigned At Female [facility] Start: 12-31-2022 Tobacco smoking stat us SCIS Never smoked tobacco (finding) [facility] Start: 12-10-2024 Sex Female (finding) [facility] Discharge summary 12-31-2022 Note Date & Type Note Facility 12-31-2022 Discharge summary Note Date/Time December 31, 2022 4:26pm [facility] Medical Records Department [address] [place] [id number] Emergency Department Summary 12/31/22 MR#: [id number] Acct: [id number] Name: TRICIA GAN Rep #:[id number] : 1940 82 From: Jos Dumont MD PCP: Dr. Jaki Anderson MD Status:REG ER Location: ED HPI HPI - Psych History of Present Illness Chief Complaint: Mental Health Narrative Narrative: 82-year-old female past medical history of dementia presents from retirement facility with aggressive behavior that was reported [...] residents. She was sent for psychiatric evaluationtoday. [facility] Medical History Abnormal mammogram of right breast Anemia Bone fracture Cataracts, bilateral Dementia Depression Hearing loss History of colon cancer Kidney disease Thyroid disease Home Medications cholecalciferol (vitamin D3) 25 mcg (1,000 unit) capsule 1,000 unit PO DAILY 02/11/19 [History Last Taken Unknown] hjnekmfeoovf-Ow-kvzx-minerals 27 mg-0.4 mg tablet 1 ea PO [...] DAILY 12/31/22 [History Last Taken Unknown] vitamins A,C,D-vskq-mqpjoo 2,148 mcg-113 mg-45 mg-17.4 mg tablet (Eye [...] the patient is a resident of a retirement facility. At this point in time, I do feel she is medically cleared for evaluation by mental health/crisis RN reports that after evaluation, she does not meet any criteria for geriatric psychiatric admission/placement. I do feel that her aggressive behavior is most likely secondary to dementia. At this point in time, she will be discharged back to the retirement facility. Additionally, she had only given a [...] she be discharged. Disposition is discharged to retirement facility in stable condition. History & Record [...] % (Auto) 67.4 Lymph % (Auto) 22.4 [place] % (Auto) 7.2 Eos % (Auto) 2.3 [...] Color Urine Clarity Urine pH Ur Specific [place] Urine Protein Urine Glucose (UA) Urine Ketones [...] (Auto) Neut % (Auto) Lymph % (Auto) [place] % (Auto) Eos % (Auto) Baso % [...] Clarity Clear Urine pH 5.0 Ur Specific [place] 1.030 Urine Protein 30 H Urine Glucose [...] (Auto) Neut % (Auto) Lymph % (Auto) [place] % (Auto) Eos % (Auto) Baso % [...] Clarity Clear Urine pH 5.0 Ur Specific [place] 1.025 Urine Protein Negative Urine Glucose (UA) [...] 100 mg PO DAILY Qty: 30 0RF jpzhtpxjkvpq-Vn-wyhf-minerals 1 EACH tablet 1 ea PO DAILY [...] MD [Primary Care Provider] - Disposition Disposition: Long-Term Facility Discharge Location: [facility] What to do if you have Problems For any increased pain, shortness of breath, bleeding, nausea or vomiting, chestpain, or any unexpected problems, contact your Primary Care Provider. Call [facility] ([phone]) or report to the closest Emergency Room. Call 911 if necessary. 12/31/222112 <Electronically signed by Jos Dumont MD> Cosigner Signature (if applicable): CC: Dr. Jaki Anderson MD ~ Signed [facility] Work Phone: Evaluation note Note Date & Type Note Facility Evaluation note No assessment information availa ble [facility] Work Phone: Hospital Discharge instructions Note Date & Type Note Facility Hospital Discharge instructions Additional Instructions Continue previous medications and activities as previously prescribed. [facility] Work Phone: Reason for referral (narrative) Note Date & Type Note Facility Reason for referral (narrative) No reason for referral information available [facility] Work Phone: Family History No [...] No February 21, 2019 2:51pm Power of Management Scientist No February 21 2:51pm Advance Directive Response Recorded Date/ Time Living Will No February 21, 2019 1:51pm Power of Management Scientist No February 21 1:51pm Advance Directive Response Recorded Date/ Time Name of Medical Power of Management Scientist MENDEZ NEYHARDon-NE PHEW December 31, 2022 4:19pm Living Will Yes December 31, 2022 4:19pm Power of Management Scientist Yes December 31 4:19pm Advance Directive Response Recorded Date/ Time Living Will Yes December 31, 2022 4:19pm Power of Management Scientist Yes December 31 4:19pm Advance Directive Response Recorded Date/ Time Living Will Yes December 31, 2022 3:19pm Power of Management Scientist Yes December 31 3:19pm Advance Directive Response Recorded Date/ Time Living Will Yes October 30 024 10:03am Power of Management Scientist Yes October 30, 2023 10:03am Advance Directive Response Recorded Date/ Time Living Will Yes October 30 024 11:03am Power of Management Scientist Yes October 30, 2023 11:03am Chief Complaint and Reason for Visit Chief Complaint LABWORK Chief Complaint LABWORK CUSTODIAL LAB WORK CUSTODIAL LAB WORK Chief Complaint LABWORK CUSTODIAL LAB WORK CUSTODIAL LAB WORK CUSTODIAL LABWORK Chief Complaint LABWORK CUSTODIAL LAB WORK CUSTODIAL LAB WORK CUSTODIAL LABWORK CUSTODIAL LABWORK MONTHLY EXAM Chief Complaint LABWORK CUSTODIAL LAB WORK CUSTODIAL LAB WORK CUSTODIAL LABWORK CUSTODIAL LABWORK MONTHLY EXAM CUSTODIAL LABWORK LABWORK Chief Complaint LABWORK CUSTODIAL LAB WORK CUSTODIAL LAB WORK CUSTODIAL LABWORK CUSTODIAL LABWORK MONTHLY EXAM CUSTODIAL LABWORK LABWORK CUSTODIAL LABWORK Chief Complaint CUSTODIAL LAB WOR K CUSTODIAL LABWORK CUSTODIAL LABWORK MONTHLY EXAM CUSTODIAL LABWORK LABWORK CUSTODIAL LABWORK LABWORK Chief Complaint CUSTODIAL LABWORK CUSTODIAL LABWORK MONTHLY EXAM CUSTODIAL LABWORK LABWORK CUSTODIAL LABWORK LABWORK CUSTODIAL LABWORK MONTHLY EXAM Chief Complaint CUSTODIAL LABWORK MONTHLY EXAM CUSTODIAL LABWORK LABWORK CUSTODIAL LABWORK LABWORK LABWORK CUSTODIAL LABWORK MONTHLY EXAM Chief Complaint LABWORK CUSTODIAL LABWORK LABWORK LABWORK CUSTODIAL LABWORK MONTHLY EXAM CUSTODIAL LAB WORK LABWORK Chief Complaint LABWORK CUSTODIAL LABWORK MONTHLY EXAM CUSTODIAL LAB WORK LABWORK MONTHLY EXAM CUSTODIAL LABWORK CUSTODIAL LAB WORK LABWORK Chief Complaint LABWORK MONTHLY EXAM CUSTODIAL LABWORK CUSTODIAL LAB WORK LABWORK LABWORK NEW CONCERN/PROBLEM CUSTODIAL LAB WORK MONTHLY EXAM Chief Complaint LABWORK MONTHLY EXAM CUSTODIAL LABWORK CUSTODIAL LAB WORK LABWORK CUSTODIAL LAB WORK LABWORK NEW CONCERN/PROBLEM CUSTODIAL LAB WORK MONTHLY EXAM Chief Complaint LABWORK MONTHLY EXAM CUSTODIAL LABWORK CUSTODIAL LAB WORK LABWORK CUSTODIAL LAB WORK LABWORK NEW CONCERN/PROBLEM CUSTODIAL LAB WORK CUSTODIAL LABWORK MONTHLY EXAM Chief Complaint LABWORK CUSTODIAL LAB WORK LABWORK NEW CONCERN/PROBLEM CUSTODIAL LAB WORK CUSTODIAL LABWORK MONTHLY EXAM CUSTODIAL LABWORK MONTHLY EXAM CUSTODIAL LABWORK MONTHLY EXAM Chief Complaint LABWORK CUSTODIAL LAB WORK LABWORK NEW CONCERN/PROBLEM CUSTODIAL LAB WORK CUSTODIAL LABWORK MONTHLY EXAM CUSTODIAL LABWORK MONTHLY EXAM CUSTODIAL LABWORK LABWORK MONTHLY EXAM Chief Complaint CUSTODIAL LAB WOR K LABWORK NEW CONCERN/PROBLEM CUSTODIAL LAB WORK CUSTODIAL LABWORK MONTHLY EXAM CUSTODIAL LABWORK MONTHLY EXAM CUSTODIAL LABWORK LABWORK MONTHLY EXAM CUSTODIAL LABWORK MENTAL HEALTH Chief Complaint CUSTODIAL LAB WOR K LABWORK NEW CONCERN/PROBLEM CUSTODIAL LAB WORK CUSTODIAL LABWORK MONTHLY EXAM CUSTODIAL LABWORK MONTHLY EXAM CUSTODIAL LABWORK LABWORK MONTHLY EXAM CUSTODIAL LABWORK LABWORK MENTAL HEALTH Chief Complaint NEW CONCERN/PROBLEM CUSTODIAL LAB WORK CUSTODIAL LABWORK MONTHLY EXAM CUSTODIAL LABWORK MONTHLY EXAM CUSTODIAL LABWORK LABWORK MONTHLY EXAM CUSTODIAL LABWORK LABWORK MENTAL HEALTH CUSTODIAL LABWORK Chief Complaint CUSTODIAL LABWORK MONTHLY EXAM CUSTODIAL LABWORK MONTHLY EXAM CUSTODIAL LABWORK LABWORK MONTHLY EXAM CUSTODIAL LABWORK LABWORK MENTAL HEALTH CUSTODIAL LABWORK LABWORK CUSTODIAL LAB WORK Chief Complaint MENTAL HEALTH MONTHLY EXAM CUSTODIAL LABWORK MONTHLY EXAM MONTHLY EXAM LABWORK CUSTODIAL LAB WORK CUSTODIAL LABWORK CUSTODIAL LABWORK CUSTODIAL LAB WORK CUSTODIAL LAB WORK MONTHLY EXAM CUSTODIAL LABWORK Chief Complaint CUSTODIAL LABWORK MONTHLY EXAM MONTHLY EXAM LABWORK CUSTODIAL LAB WORK CUSTODIAL LABWORK CUSTODIAL LABWORK CUSTODIAL LAB WORK CUSTODIAL LAB WORK MONTHLY EXAM CUSTODIAL LABWORK CUSTODIAL LABWORK Chief Complaint CUSTODIAL LAB WOR K CUSTODIAL LABWORK CUSTODIAL LABWORK CUSTODIAL LAB WORK CUSTODIAL LAB WORK MONTHLY EXAM CUSTODIAL LABWORK CUSTODIAL LABWORK LABWORK MONTHLY EXAM Chief Complaint CUSTODIAL LABWORK CUSTODIAL LABWORK LABWORK MONTHLY EXAM MONTHLY EXAM CUSTODIAL LAB WORK CUSTODIAL LABWORK LABWORK CUSTODIAL LABWORK Chief Complaint CUSTODIAL LABWORK LABWORK MONTHLY EXAM MONTHLY EXAM CUSTODIAL LAB WORK CUSTODIAL LABWORK LABWORK NEW CONCERN CUSTODIAL LABWORK CUSTODIAL LAB WORK Chief Complaint MONTHLY EXAM MONTHLY EXAM CUSTODIAL LAB WORK CUSTODIAL LABWORK LABWORK NEW CONCERN CUSTODIAL LABWORK MONTHLY EXAM CUSTODIAL LAB WORK CUSTODIAL LABWORK CUSTODIAL LAB WORK Chief Complaint CUSTODIAL LABWORK LABWORK NEW CONCERN CUSTODIAL LABWORK MONTHLY EXAM CUSTODIAL LAB WORK CUSTODIAL LABWORK CUSTODIAL LAB WORK CUSTODIAL LABWORK Chief Complaint CUSTODIAL LABWORK LABWORK NEW CONCERN CUSTODIAL LABWORK MONTHLY EXAM CUSTODIAL LAB WORK CUSTODIAL LABWORK CUSTODIAL LAB WORK MONTHLY EXAM CUSTODIAL LABWORK CUSTODIAL LABWORK Chief Complaint CUSTODIAL LABWORK MONTHLY EXAM CUSTODIAL LAB WORK CUSTODIAL LABWORK CUSTODIAL LAB WORK MONTHLY EXAM CUSTODIAL LABWORK MONTHLY EXAM CUSTODIAL LABWORK CUSTODIAL LAB WORK Chief Complaint CUSTODIAL LABWORK MONTHLY EXAM CUSTODIAL LAB WORK CUSTODIAL LABWORK CUSTODIAL LAB WORK MONTHLY EXAM CUSTODIAL LABWORK MONTHLY EXAM CUSTODIAL LABWORK CUSTODIAL LAB WORK LABWORK Chief Complaint CUSTODIAL LAB WOR K CUSTODIAL LABWORK CUSTODIAL LAB WORK MONTHLY EXAM CUSTODIAL LABWORK MONTHLY EXAM CUSTODIAL LABWORK CUSTODIAL LAB WORK LABWORK CUSTODIAL LAB WORK Chief Complaint CUSTODIAL LABWORK CUSTODIAL LAB WORK MONTHLY EXAM CUSTODIAL LABWORK MONTHLY EXAM CUSTODIAL LABWORK CUSTODIAL LAB WORK MONTHLY EXAM PA LABWORK CUSTODIAL LAB WORK CUSTODIAL LAB WORK Chief Complaint CUSTODIAL LABWORK CUSTODIAL LAB WORK MONTHLY EXAM CUSTODIAL LABWORK MONTHLY EXAM CUSTODIAL LABWORK CUSTODIAL LAB WORK MONTHLY EXAM PA LABWORK CUSTODIAL LAB WORK CUSTODIAL LAB WORK CUSTODIAL LAB WORK Chief Complaint CUSTODIAL LAB WOR K MONTHLY EXAM CUSTODIAL LABWORK MONTHLY EXAM CUSTODIAL LABWORK CUSTODIAL LAB WORK MONTHLY EXAM PA LABWORK CUSTODIAL LAB WORK CUSTODIAL LAB WORK MONTHLY EXAM MD CUSTODIAL LAB WORK CUSTODIAL LAB WORK Chief Complaint LABWORK MONTHLY EXAM MONTHLY EXAM CUSTODIAL LAB WORK CUSTODIAL LABWORK LABWORK NEW CONCERN CUSTODIAL LABWORK MONTHLY EXAM CUSTODIAL LAB WORK CUSTODIAL LABWORK Chief Complaint Admit Date CUSTODIAL LAB WORK August 19 5:00am CUSTODIAL LAB WORK September 16, 2024 4:35am MONTHLY EXAM September 16, 2024 4: 10pm CUSTODIAL LAB WORK October 13, 2024 5:00am LABWORK [...] MONTHLY EXAM February 24, 2025 6:15 pm Chief Complaint Admit Date MONTHLY EXAM January 27, 2025 3:45p m MONTHLY EXAM February 24, 2025 6:15 pm Monthly Exam March 10, 2025 6:17p m Summary Purpose Additional Source Comments Goals (unrecognized [...] Jaki Anderson MD Primary Care Provider Active Dr. Jose Raul Pulliam MD Attending Provider Active Team Status: Inactive Member Role Status Dates Dr. Jaki Anderson MD Primary Care Provider Active Krissy Alex NP RHIA-C Attending Provider Active Team Status: Inactive Member [...] MD Primary Care Provider Active Krissy Alex OLS, RHIA-C Attending Provider Active Team Status: Inactive Member [...] Jaki Anderson MD Primary Care Provider Active Sandor ELKINS PA Attending Provider Active Team Status: Inactive Member [...] 2024 End: December 12, 2024 Krissy Alex RHIA, RHIA-C Attending Provider Active Start: December 12, 2024 End: December 12, 2024 Team Status: Active Member Role/Relationship Status Dates Dr. Winston Flower MD Family Provider Active Dr. Jaki Anderson MD Primary Care Provider Active Team Status: Inactive Member Role/Relationship Status Dates Dr. Jaki Anderson MD Primary Care Provider Active Start: December 12, 2024 End: December 12, 2024 Krissy Alex RHIA, RHIA-C Attending Provider Active Start: December 12, 2024 [...] February 24, 2025 End: February 24, 2025 Krissy Alex NP RHIA-C Attending Provider Active Start: February 24, 2025 End: February 24, 2025 Team Status: Inactive Member Role/Relationship Status Dates Dr. Jaki Anderson MD Primary Care Provider Active Start: January 27, 2025 End: January 27, 2025 Dr. Jose Raul Pulliam MD Attending Provider Active Start: January 27, 2025 End: January 27, 2025 Team Status: Inactive Member Role/Relationship Status Dates Dr. Jaki Anderson MD Primary Care Provider Active Start: February 24, 2025 End: February 24, 2025 Krissy Alex NP RHIA-C Attending Provider Active Start: February 24, 2025 End: February 24, 2025 Team Status: Inactive Member Role/Relationship Status Dates Dr. Jaki Anderson MD Primary Care Provider Active Start: March 10, 2025 End: March 10, 2025 Dr. Jose Raul Pulliam MD Attending Provider Active Start: March 10, 2025 End: March 10, 2025 Team Status: Active Member Role/Relationship Status Dates Dr. Jaki Anderson MD Primary Care Provider Active Start: April 14, 2025 Jose Raul MCDERMOTT MD Attending Provider Active Start: April 14, 2025 INFORMATION SOURCE (unrecogn ized section and content) DATE CREATED AUTHOR 04/25/2025 [facility] FOR RECORDS PERTAINING TO PATIENTS WHO ARE [...] BE BASED ON THE PRIMARY CLINICAL RECORDS. [employer] provides no warranty or guarantee of the accuracy or completeness of information in this document.
--- OUTSIDE RECORDS SUMMARY | 2025-04-25 18:48 | XMS RPT_ITS | CCD ---
Author Organization [facility] Care Team Providers Care Roofing Foreman Name Role Phone Dr. Jaki Anderson Primary Care Provider Tickkarli NATURAL RESOURCES PROFESSOR, NATURAL RESOURCES PROFESSOR-C Krissy Attending Provider Dr. Jaki Estrella Primary Care Provider Tickkarli NATURAL RESOURCES PROFESSOR, NATURAL RESOURCES PROFESSOR-C Krissy Attending Provider Dr. Jose Raul Dumas Attending Provider [phone] Dr. Jaki Anderson Primary Care Provider Tickkarli NATURAL RESOURCES PROFESSOR, NATURAL RESOURCES PROFESSOR-C Krissy Attending Provider Dr. Jaki Estrella Primary Care Provider [place] NATURAL RESOURCES PROFESSOR, NATURAL RESOURCES PROFESSOR-C Krissy Attending Provider Traciv mercedez Alex OLS, NATURAL RESOURCES PROFESSOR-C Krissy Attending Provider Dr. Jose Raul Pulliam Attending Provider [phone] Jaki Anderson Primary Care Provider [place] NATURAL RESOURCES PROFESSOR, NATURAL RESOURCES PROFESSOR-C Krissy Attending Provider Dr. Jaki Estrella Primary Care Provider T[place]karli NATURAL RESOURCES PROFESSOR, NATURAL RESOURCES PROFESSOR-C Krissy Attending Provider Dr. Jose Raul Dumas Attending Provider Dr. Jaki Anderson Primary Care Provider Tickkarli NATURAL RESOURCES PROFESSOR, NATURAL RESOURCES PROFESSOR-C Krissy Attending Provider Dr. Jaki Estrella Primary Care Provider Dr. Jose Raul Pulliam Attending Provider [place] NATURAL RESOURCES PROFESSOR, NATURAL RESOURCES PROFESSOR-C Krissy Attending Provider Unav Dr. Jaki Estevez Primary Care Provider [place] NATURAL RESOURCES PROFESSOR, NATURAL RESOURCES PROFESSOR-C Krissy Attending Provider Unav Dr. Jose Raul Adams Attending Provider [phone] Dr. Jaki Anderson Primary Care Provider [place] NATURAL RESOURCES PROFESSOR, NATURAL RESOURCES PROFESSOR-C Krissy Attending Provider Dr. Jose Raul Pulliam Attending Provider [phone] Dr. Jaki Anderson Primary Care Provider [place] NATURAL RESOURCES PROFESSOR, NATURAL RESOURCES PROFESSOR-C Krissy Attending Provider Dr. Jaki Anderson Primary Care Provider Dr. Jose Raul Pulliam Attending Provider [phone] Dr. Jaki Anderson Primary Care Provider [place] NATURAL RESOURCES PROFESSOR, NATURAL RESOURCES PROFESSOR-C Krissy Attending Provider Dr. Jose Raul Pulliam Attending Provider [phone] SEVERO Villegas Attending Provider Monica JERONIMO, Dr. Pollack Primary Care Provider Jose Raul Pulliam MD Attending Provider UnavailJose Raul Palumbo MD Referring Provider Chelle Pulliam MD, Dr. Blunt Attending Provider [phone] Monica JERONIMO, Dr. Pollack Primary Care Provider Jose Raul Pulliam MD Attending Provider Unavailgregg Pulliam MD, Dr. Blunt Attending Provider Abi NATURAL RESOURCES PROFESSOR-C, Krissy Attending Provider Monica JERONIMO, Dr. Pollack Primary Care Provider Dr. Jose Raul Pulliam MD Attending Provider Monica JERONIMO, Dr. Pollack Primary Care Provider Abi NATURAL RESOURCES PROFESSOR-C, Krissy Attending Provider Jose Raul Pulliam MD Attending Provider Unavaila ble Oleghe OLS, Efewongbe Attending Unavailabl e Monica, Jaki Primary Care Unavailable Oleghe OLS, Efewongbe Attending Unavailabl e Monica, Jaki Primary Care Unavailable Oleghe OLS, Efewongbe Attending Unavailabl e Monica, Jaki Primary Care Unavailable [place] NATURAL RESOURCES PROFESSOR, Krissy Attending Unavailable Monica, Jaki Primary Care Unavailable Oleghe, Efewongbe Attending Unavailable Monica, Jaki Primary Care Unavailable [place] NATURAL RESOURCES PROFESSOR, Krissy Attending Unavailable Monica, Ajki Primary Care Unavailable Oleghe, Efewongbe Attending Unavailable Monica, Jaki Primary Care Unavailable Oleghe, Efewongbe Attending Unavailable Monica, Jaki Primary Care Unavailable Monica, Jaki Primary Care Unavailable [place] NATURAL RESOURCES PROFESSOR, Krissy Attending Unavailable Oleghe, Efewongbe Attending Unavailable [...] Antibiotics)] Allergy to substance 07-06-2020 passes out [facility] Medications Current Medications Medication Drug Class(es) Dates Sig (Normalized) Sig (Original) acetaminophen 325 mg oral tablet (11 sources) Start: 01-25-2022 Acetaminophen (Tylenol) 325 mg Tablet Active 650 mg PO EVERY 6 HOURS NEEDED as needed for Pain Score 1-10/Temp > 100.7 F 0 0 January 25, 2022 12:00am Start: 01-25-2022 take 2 tablets by [facility] every six hours as needed Acetaminophen (Tylenol) 325 mg Tablet Active 650 MG PO EVERY 6 HOURS NEEDED 0 January 25, 2022 12:00am ascorbic acid 113 mg / beta carotene 7160 mg / cuprous oxide 0.4 mg / dl-alpha tocopheryl acetate 100 unt / zinc oxide 17.4 mg oral tablet (20 sources) Vitamin C Start: 12-31-2022 Vitamins A,C,O-Lhuh-Imnfnv (Eye Multivitamin) 2,148 mcg-113 mg-45 mg-17.4mg Tablet [...] 12:00am docusate sodium 50 mg / sennosides, [facility] 8.6 mg oral tablet (11 sources) Start: [...] hydrochloride 5 mg oral tablet (20 sources) E-oofbit-C-aspart ate Receptor Antagonist Start: 12-31-2022 take 1 tablet by mouth at bedtime Memantine 5 mg tablet Active 5 mg PO AT BEDTIME December 31, 2022 12:00am GIVEN AT BEDTIME. Ogbrgeyygoyn-Cx-Qjzv -Minerals (20 sources) Start: 02-21-2019 Multivitamin-C a-I marina-Minerals Active 1 EACH PO DAILY February 21, 2019 2:47pm Start: 02-21-2019 Multivitamin-C p-Wblc-Kcvzlaeh Active 1 EACH PO DAILY February 20, 2019 11:00pm Start: 02-21-2019 Multivitamin-C l-Ljdy-Oqftdgfo Active 1 EACH PO DAILY February 21, 2019 12:00am Omohvrureolk-Aa-Ghxe-Mineral s 1 EACH tablet (5 sources) Start: 02-21-2019 take 1 tablet by mouth once daily Xvprzbluosjs-Hz-Rgot-Minerals 1 EACH tablet Active 1 NMA PO [...] 04-14-2025 Anion gap [Moles/Vol] 10 mmol/L 5-15 [facility] BUN/creatinine ratioOrdered By: Jose Raul Pulliam on 04-14-2025 Urea nitrogen/Creatinine [Mass ratio] 17.5 mg/mg 10-20 [facility] Carbon dioxide, total [Moles /volume] in Central venous bloodOrdered By: Jose Raul Pulliam on 04-14-2025 CO2 [Moles/Vol] 22.5 mmol/L 21.0-32.0 [facility] Chloride assayOrdered By: Melia Pulliam on 04-14-2025 Chloride [Moles/Vol] 108 mmol/L 98-108 [facility] Erythrocyte distribution wid th ratioOrdered By: Jose Raul Pulliam on 04-14-2025 Erythrocyte distribution width (RBC) [Ratio] 15.9 % High 11.6-14.6 [facility] Erythrocyte distribution wid th standard deviationOrdered By: Jose Raul Pulliam on 04-14-2025 Erythrocyte distribution width (RBC) [Ratio] 50.2 fl High 35.1-43.9 [facility] Glomerular filtration rate ( GFR) estimation/1.73 sq m using serum, plasma, or whole bOrdered By: Jose Raul Pulliam on 04-14-2025 GFR/1.73 sq M.predicted among non-blacks MDRD (S/P/Bld) [Vol rate/Area] 72 mL/min/{1.73_m2} >60 [facility] Comment on above: mL/min/1.73m2 CKD-EP I Creatinine Equation (2020) Hematocrit Auto (Bld) [Volum e fraction]Ordered By: Jose Raul Pulliam on 04-14-2025 Hematocrit (Bld) [Volume fraction] 35.4 % Low 37-47 [facility] Hemoglobin measurementOrdere d By: Jose Raul Pulliam 04-14-2025 Hemoglobin (Bld) [Mass/Vol] 11.0 g/dL Low 12.0-15.0 [facility] MCV (mean corpuscular volume ) determinationOrdered By: Jose Raul Pulliam 04-14-2025 MCV (RBC) [Entitic vol] 86.1 fL 81-99 [facility] Mean corpuscular hemoglobin (MCH) determinationOrdered By: Jose Raul Pulliam on 04-14-2025 MCH (RBC) [Entitic mass] 26.8 pg Low 27.0-32.0 [facility] Mean corpuscular hemoglobin concentration (MCHC) determinationOrdered By: Jose Raul Pulliam on 04-14-2025 MCHC (RBC) [Mass/Vol] 31.1 g/dL Low 32-36 [facility] Mean platelet volume determi nationOrdered By: Jose Raul Pulliam on 04-14-2025 Platelet mean volume (Bld) [Entitic vol] 9.8 fL 6.2-12.0 [facility] Platelet countOrdered By: Melia Pulliam on 04-14-2025 Platelets (Bld) [#/Vol] 256 10*3/uL 150-450 [facility] Potassium measurement (mass/ volume)Ordered By: Jose Raul Pulliam on 04-14-2025 Potassium (Unsp spec) [Mass/Vol] 3.9 mmol/L 3.3-5.1 [facility] RBC Auto (Bld) [#/Vol]Ordere d By: Jose Raul Pulliam on 04-14-2025 RBC (Bld) [#/Vol] 4.11 10*6/uL Low 4.2-5.4 [facility] Serum creatinine measurement (mass/volume)Ordered By: Jose Raul Pulliam on 04-14-2025 Creatinine [Mass/Vol] 0.80 mg/dL 0.70-1.20 [facility] Serum glucose measurement (m ass/volume)Ordered By: Jose Raul Pulliam on 04-14-2025 Glucose [Mass/Vol] 106 mg/dL High 70-99 [facility] Serum or plasma calcium milagros urement (mass/volume)Ordered By: Jose Raul Pulliam on 04-14-2025 Calcium [Mass/Vol] 8.4 mg/dL 7.6-11.0 [facility] Serum or plasma urea nitroge n measurement (mass/volume)Ordered By: Jose Raul Pulliam on 04-14-2025 Urea nitrogen [Mass/Vol] 14 mg/dL 4-19 [facility] Sodium levelOrdered By: Franky Pulliam on 04-14-2025 Sodium [Moles/Vol] 140 mmol/L 133-145 [facility] White blood cell (WBC) count Ordered By: Jose Raul Pulliam on 04-14-2025 WBC (Bld) [#/Vol] 7.3 10*3/uL 4.4-11.0 [facility] Bilirubin Test strip Ql (U)O rdered By: Jose Raul Pulliam on 11-11-2024 Bilirubin Ql (U) Negative Negative [facility] Epithelial cells.squamous LM Ql (Urine sed)Ordered By: Jose Raul Pulliam on 11-11-2024 Epithelial cells.squamous LM.HPF (Urine sed) [#/Area] 10 /[HPF] 5-10 [facility] Glucose Ql (U)Ordered By: Melia Pulliam on 11-11-2024 Urine Glucose (UA) Normal mg/dl Normal [facility] Ketones Test strip Ql (U)Ord ered By: Jose Raul Pulliam on 11-11-2024 Ketones Ql (U) 5 mg/dl High Negative [facility] Microscopic analysis of urin e for red blood cells (RBC)Ordered By: Jose Raul Pulliam on 11-11-2024 Microscopic analysis of urine for red blood cells (RBC) 0 SEEN /hpf 0-5 [facility] Urine RBC 0 SEEN /hpf 0-5 [facility] Mucus LM Ql (Urine sed)Order ed By: Jose Raul Pulliam on 11-11-2024 Mucus Ql (Urine sed) 0 SEEN /hpf [facility] Nitrite Test strip Ql (U)Ord ered By: Jose Raul Pulliam on 11-11-2024 Nitrite Ql (U) Negative Negative [facility] Protein Test strip Ql (U)Ord ered By: Jose Raul Pulliam on 11-11-2024 Protein Ql (U) 30 mg/dl High Negative [facility] Squamous epithelial cells de tection in urine sediment by light microscopyOrdered By: Jose Raul Pulliam on 11-11-2024 Epithelial cells.squamous LM Ql (Urine sed) 10-25 SEEN /hpf 5-10 [facility] Urine blood detectionOrdered By: Jose Raul Pulliam on 11-11-2024 Urine Occult Blood 25 /ul High Negative [facility] Urine clarityOrdered By: Sam Pulliam on 11-11-2024 Clarity (U) Turbid Clear [facility] Urine color determinationOrd ered By: Jose Raul Pulliam on 11-11-2024 Color (U) Yellow Yellow [facility] Urine cultureOrdered By: Sam Pulliam on 11-11-2024 Bacteria identified Cx Nom (U) Positive Abnormal [facility] Urine glucose detectionOrder ed By: Jose Raul Pulliam on 11-11-2024 Glucose Ql (U) Normal mg/dl Normal [facility] Urine leukocyte esterase det ection by dipstickOrdered By: Jose Raul Pulliam on 11-11-2024 Leukocyte esterase Test strip Ql (U) 500 /ul High Negative [facility] Urine pHOrdered By: Donny Pulliam on 11-11-2024 pH (U) 6.0 [pH] 5.0 - 8.0 [facility] Urine sediment bacteria coun t by microscopy (number/high power field)Ordered By: Jose Raul Pulliam on 11-11-2024 Bacteria LM.HPF (Urine sed) [#/Area] 2 /[HPF] None Seen [facility] Urine specific gravity measu rementOrdered By: Jose Raul Pulliam on 11-11-2024 Specific gravity (U) [Rel density] 1.025 1.002-1.030 [facility] Urine urobilinogen measureme ntOrdered By: Jose Raul Pulliam on 11-11-2024 Urobilinogen Ql (U) 1 mg/dl High Normal [facility] Urobilinogen Ql (U)Ordered B y: Jose Raul Pulliam on 11-11-2024 Urobilinogen (U) [Mass/Vol] 1 mg/dL High Normal [facility] White blood cell countOrdere d By: Jose Raul Pulliam on 11-11-2024 Urine WBC 25-50 SEEN /hpf 0-5 [facility] White blood cell count 25-50 SEEN /hpf 0-5 [facility] Blood urea nitrogen (BUN)/cr eatinine ratioOrdered By: Jose Raul Pulliam on 10-13-2024 Urea nitrogen/Creatinine [Mass ratio] 8.2 mg/mg Low 10-20 [facility] Carbon dioxide measurementOr dered By: Jose Raul Pulliam on 10-13-2024 CO2 [Moles/Vol] 20.0 mmol/L Low 21.0-32.0 [facility] Chloride measurementOrdered By: Jose Raul Pulliam on 10-13-2024 Chloride [Moles/Vol] 111 mmol/L High 98-107 [facility] Erythrocyte distribution wid th (RBC) [Ratio]Ordered By: Jose Raul Pulliam on 10-13-2024 Erythrocyte distribution width (RBC) [Entitic vol] 50.4 fL High 35.1-43.9 [facility] Erythrocyte distribution wid th ratioOrdered By: Jose Raul Pulliam on 10-13-2024 Erythrocyte distribution width (RBC) [Ratio] 16.0 % High 11.6-14.6 [facility] Estimated glomerular filtrat ion rate (GFR) AmericanOrdered By: Jose Raul Pulliam on 10-13-2024 Estimated GFR (MDRD) Amer 96 mL/min >60 [facility] Comment on above: GFR Calc Glomerular filtration rate ( GFR) estimationOrdered By: Jose Raul Pulliam on 10-13-2024 Estimated GFR (MDRD) Non-Af Amer 80 mL/min >60 [facility] Comment on above: Non- GFR Calc Glucose measurementOrdered B y: Jose Raul Pulliam on 10-13-2024 Glucose [Mass/Vol] 73 mg/dL Low 74-106 [facility] Hematocrit Auto (Bld) [Volum e fraction]Ordered By: Jose Raul Pulliam on 10-13-2024 Hematocrit (Bld) [Volume fraction] 36.0 % Low 37-47 [facility] Hemoglobin measurementOrdere d By: Jose Raul Pulliam on 10-13-2024 Hemoglobin (Bld) [Mass/Vol] 11.4 g/dL Low 12.0-15.0 [facility] MCV (mean corpuscular volume ) determinationOrdered By: Jose Raul Pulliam on 10-13-2024 MCV (RBC) [Entitic vol] 85.5 fL 81-99 [facility] Mean corpuscular hemoglobin (MCH) determinationOrdered By: Jose Raul Pulliam on 10-13-2024 MCH (RBC) [Entitic mass] 27.1 pg 27.0-32.0 [facility] Mean corpuscular hemoglobin concentration (MCHC) determinationOrdered By: Jose Raul Pulliam on 10-13-2024 MCHC (RBC) [Mass/Vol] 31.7 g/dL Low 32-36 [facility] Mean platelet volume determi nationOrdered By: Jose Raul Pulliam on 10-13-2024 Platelet mean volume (Bld) [Entitic vol] 10.1 fL 6.2-12.0 [facility] Platelet countOrdered By: Melia Pulliam on 10-13-2024 Platelets (Bld) [#/Vol] 253 10*3/uL 150-450 [facility] Potassium measurementOrdered By: Jose Raul Pulliam on 10-13-2024 Potassium [Moles/Vol] 3.6 mmol/L 3.5-5.1 [facility] RBC Auto (Bld) [#/Vol]Ordere d By: Jose Raul Pulliam on 10-13-2024 RBC (Bld) [#/Vol] 4.21 10*6/uL 4.2-5.4 [facility] Serum anion gap measurementO rdered By: Jose Raul Pulliam on 10-13-2024 Anion gap [Moles/Vol] 10 mmol/L 5-15 [facility] Serum or plasma calcium milagros urement (mass/volume)Ordered By: Jose Raul Pulliam on 10-13-2024 Calcium [Mass/Vol] 7.3 mg/dL Low 8.5-10.1 [facility] Serum or plasma creatinine m easurement (mass/volume)Ordered By: Jose Raul Pulliam on 10-13-2024 Creatinine [Mass/Vol] 0.74 mg/dL 0.55-1.02 [facility] Comment on above: The validity of the calculated GFR & GFRAA in patients over 70 years has not been determined. Clinical correlation is essential. Serum or plasma urea nitroge n measurement (mass/volume)Ordered By: Jose Raul Pulliam on 10-13-2024 Urea nitrogen [Mass/Vol] 6 mg/dL Low 7-18 [facility] Sodium levelOrdered By: Franky Pulliam on 10-13-2024 Sodium [Moles/Vol] 141 mmol/L 136-145 [facility] White blood cell (WBC) count Ordered By: Jose Raul Pulliam on 10-13-2024 WBC (Bld) [#/Vol] 7.1 10*3/uL 4.4-11.0 [facility] Blood urea nitrogen (BUN)/cr eatinine ratioOrdered By: Jose Raul Pulliam on 09-16-2024 Urea nitrogen/Creatinine [Mass ratio] 20.5 mg/mg High 10-20 [facility] Carbon dioxide measurementOr dered By: Jose Raul Pulliam on 09-16-2024 CO2 [Moles/Vol] 25.0 mmol/L 21.0-32.0 [facility] Chloride measurementOrdered By: Jose Raul Pulliam on 09-16-2024 Chloride [Moles/Vol] 111 mmol/L High 98-107 [facility] Erythrocyte distribution wid th (RBC) [Ratio]Ordered By: Jose Raul Pulliam on 09-16-2024 Erythrocyte distribution width (RBC) [Entitic vol] 50.8 fL High 35.1-43.9 [facility] Erythrocyte distribution wid th ratioOrdered By: Jose Raul Pulliam on 09-16-2024 Erythrocyte distribution width (RBC) [Ratio] 16.2 % High 11.6-14.6 [facility] Estimated glomerular filtrat ion rate (GFR) AmericanOrdered By: Jose Raul Pulliam on 09-16-2024 Estimated GFR (MDRD) Amer 84 mL/min >60 [facility] Comment on above: GFR Calc Glomerular filtration rate ( GFR) estimationOrdered By: Jose Raul Pulliam on 09-16-2024 Estimated GFR (MDRD) Non-Af Amer 70 mL/min >60 [facility] Comment on above: Non- GFR Calc Glucose measurementOrdered B y: Frankycarolynjennifer Pulliam on 09-16-2024 Glucose [Mass/Vol] 100 mg/dL 74-106 [facility] Comment on above: Fasting Glucose resu lt from 100 to 125 mg/dL suggests IMPAIRED HOMEOSTASIS per A.D.A. criteria. Hematocrit Auto (Bld) [Volum e fraction]Ordered By: Jose Raul Pulliam on 09-16-2024 Hematocrit (Bld) [Volume fraction] 38.6 % 37-47 [facility] Hemoglobin measurementOrdere d By: Jose Raul Pulliam on 09-16-2024 Hemoglobin (Bld) [Mass/Vol] 12.0 g/dL 12.0-15.0 [facility] MCV (mean corpuscular volume ) determinationOrdered By: Jose Raul Pulliam on 09-16-2024 MCV (RBC) [Entitic vol] 85.2 fL 81-99 [facility] Mean corpuscular hemoglobin (MCH) determinationOrdered By: Jose Raul Pulliam on 09-16-2024 MCH (RBC) [Entitic mass] 26.5 pg Low 27.0-32.0 [facility] Mean corpuscular hemoglobin concentration (MCHC) determinationOrdered By: Jose Raul Pulliam on 09-16-2024 MCHC (RBC) [Mass/Vol] 31.1 g/dL Low 32-36 [facility] Mean platelet volume determi nationOrdered By: Jose Raul Pulliam on 09-16-2024 Platelet mean volume (Bld) [Entitic vol] 10.1 fL 6.2-12.0 [facility] Platelet countOrdered By: Melia Pulliam on 09-16-2024 Platelets (Bld) [#/Vol] 284 10*3/uL 150-450 [facility] Potassium measurementOrdered By: Jose Raul Pulliam on 09-16-2024 Potassium [Moles/Vol] 3.8 mmol/L 3.5-5.1 [facility] RBC Auto (Bld) [#/Vol]Ordere d By: Jose Raul Pulliam on 09-16-2024 RBC (Bld) [#/Vol] 4.53 10*6/uL 4.2-5.4 [facility] Serum anion gap measurementO rdered By: Jose Raul Pulliam on 09-16-2024 Anion gap [Moles/Vol] 5 mmol/L 5-15 [facility] Serum or plasma calcium milagros urement (mass/volume)Ordered By: Jose Raul Pulliam on 09-16-2024 Calcium [Mass/Vol] 8.8 mg/dL 8.5-10.1 [facility] Serum or plasma creatinine m easurement (mass/volume)Ordered By: Jose Raul Pulliam on 09-16-2024 Creatinine [Mass/Vol] 0.83 mg/dL 0.55-1.02 [facility] Comment on above: The validity of the calculated GFR & GFRAA in patients over 70 years has not been determined. Clinical correlation is essential. Serum or plasma urea nitroge n measurement (mass/volume)Ordered By: Jose Raul Pulliam on 09-16-2024 Urea nitrogen [Mass/Vol] 17 mg/dL 7-18 [facility] Sodium levelOrdered By: Franky Pulliam on 09-16-2024 Sodium [Moles/Vol] 141 mmol/L 136-145 [facility] White blood cell (WBC) count Ordered By: Jose Raul Pulliam on 09-16-2024 WBC (Bld) [#/Vol] 5.9 10*3/uL 4.4-11.0 [facility] Blood urea nitrogen (BUN)/cr eatinine ratioOrdered By: Jose Raul Pulliam on 08-19-2024 Urea nitrogen/Creatinine [Mass ratio] 18.7 mg/mg 10-20 [facility] Carbon dioxide measurementOr dered By: Jose Raul Pulliam on 08-19-2024 CO2 [Moles/Vol] 27.0 mmol/L 21.0-32.0 [facility] Chloride measurementOrdered By: Jose Raul Pulliam on 12-10-2024 Chloride [Moles/Vol] 114 mmol/L High 98-107 [facility] Erythrocyte distribution wid th (RBC) [Ratio]Ordered By: Jose Raul Pulliam on 08-19-2024 Erythrocyte distribution width (RBC) [Entitic vol] 50.5 fL High 35.1-43.9 [facility] Erythrocyte distribution wid th ratioOrdered By: Jose Raul Pulliam on 08-19-2024 Erythrocyte distribution width (RBC) [Ratio] 15.9 % High 11.6-14.6 [facility] Estimated glomerular filtrat ion rate (GFR) AmericanOrdered By: Jose Raul Pulliam on 08-19-2024 Estimated GFR (MDRD) Amer 88 mL/min >60 [facility] Comment on above: GFR Calc Glomerular filtration rate ( GFR) estimationOrdered By: Jose Raul Pulliam on 08-19-2024 Estimated GFR (MDRD) Non-Af Amer 72 mL/min >60 [facility] Comment on above: Non- GFR Calc Glucose measurementOrdered B y: Jose Raul Pulliam on 08-19-2024 Glucose [Mass/Vol] 96 mg/dL 74-106 [facility] Hematocrit Auto (Bld) [Volum e fraction]Ordered By: Jose Raul Pulliam on 08-19-2024 Hematocrit (Bld) [Volume fraction] 38.3 % 37-47 [facility] Hemoglobin measurementOrdere d By: Jose Raul Pulliam on 08-19-2024 Hemoglobin (Bld) [Mass/Vol] 11.7 g/dL Low 12.0-15.0 [facility] MCV (mean corpuscular volume ) determinationOrdered By: Jose Raul Pulliam on 08-19-2024 MCV (RBC) [Entitic vol] 86.5 fL 81-99 [facility] Mean corpuscular hemoglobin (MCH) determinationOrdered By: Jose Raul Pulliam on 08-19-2024 MCH (RBC) [Entitic mass] 26.4 pg Low 27.0-32.0 [facility] Mean corpuscular hemoglobin concentration (MCHC) determinationOrdered By: Jose Raul Pulliam on 08-19-2024 MCHC (RBC) [Mass/Vol] 30.5 g/dL Low 32-36 [facility] Mean platelet volume determi nationOrdered By: Jose Raul Pulliam on 08-19-2024 Platelet mean volume (Bld) [Entitic vol] 9.9 fL 6.2-12.0 [facility] Platelet countOrdered By: Melia Pulliam on 08-19-2024 Platelets (Bld) [#/Vol] 262 10*3/uL 150-450 [facility] Potassium measurementOrdered By: Jose Raul Pulliam on 08-19-2024 Potassium [Moles/Vol] 3.8 mmol/L 3.5-5.1 [facility] RBC Auto (Bld) [#/Vol]Ordere d By: Jose Raul Pulliam on 08-19-2024 RBC (Bld) [#/Vol] 4.43 10*6/uL 4.2-5.4 [facility] Serum anion gap measurementO rdered By: Jose Raul Pulliam on 08-19-2024 Anion gap [Moles/Vol] 3 mmol/L Low 5-15 [facility] Serum or plasma calcium milagros urement (mass/volume)Ordered By: Jose Raul Pulliam 08-19-2024 Calcium [Mass/Vol] 9.0 mg/dL 8.5-10.1 [facility] Serum or plasma creatinine m easurement (mass/volume)Ordered By: Jose Raul Pulliam on 08-19-2024 Creatinine [Mass/Vol] 0.80 mg/dL 0.55-1.02 [facility] Comment on above: The validity of the calculated GFR & GFRAA in patients over 70 years has not been determined. Clinical correlation is essential. Serum or plasma urea nitroge n measurement (mass/volume)Ordered By: Jose Raul Pulliam on 08-19-2024 Urea nitrogen [Mass/Vol] 15 mg/dL 7-18 [facility] Sodium levelOrdered By: Franky floresjessenia Heraclio on 08-19-2024 Sodium [Moles/Vol] 143 mmol/L 136-145 [facility] White blood cell (WBC) count Ordered By: Jose Raul Pulliam on 08-19-2024 WBC (Bld) [#/Vol] 7.4 10*3/uL 4.4-11.0 [facility] Basophil percentageOrdered B y: Jose Raul Pulliam on 12-11-2023 Chloride [Moles/Vol] 111 mmol/L 98-107 [facility] Glucose [Mass/Vol] 87 mg/dL 74-106 [facility] Hemoglobin (Bld) [Mass/Vol] 11.5 g/dL 12.0-15.0 [facility] Potassium [Moles/Vol] 3.9 mmol/L 3.5-5.1 [facility] Comment on above: Slight Hemolysis, Re sult may be falsely increased. Sodium [Moles/Vol] 141 mmol/L 136-145 [facility] WBC (Bld) [#/Vol] 6.1 10*3/uL 4.4-11.0 [facility] Determination of erythrocyte mean corpuscular volume (MCV)Ordered By: Jose Raul Pulliam on 12-11-2023 MCV (RBC) [Entitic vol] 85.8 fL 81-99 [facility] Erythrocyte distribution wid th ratioOrdered By: Jose Raul Pulliam on 12-11-2023 Erythrocyte distribution width (RBC) [Ratio] 16.1 % 11.6-14.6 [facility] Erythrocyte distribution wid th standard deviationOrdered By: Jose Raul Pulliam on 12-11-2023 Erythrocyte distribution width (RBC) [Entitic vol] 50.8 fL 35.1-43.9 [facility] Hematocrit Auto (Bld) [Volum e fraction]Ordered By: Jose Raul Pulliam on 12-11-2023 Hematocrit (Bld) [Volume fraction] 36.9 % 37-47 [facility] - Chemistry and C hemistry - challengeOrdered By: Jose Raul Pulliam on 12-11-2023 CO2 [Moles/Vol] 26.0 mmol/L 21.0-32.0 [facility] Urea nitrogen/Creatinine [Mass ratio] 13.8 mg/mg 10-20 [facility] - Hematology and Cell countsOrdered By: Jose Raul Pulliam on 12-11-2023 MCH (RBC) [Entitic mass] 26.7 pg 27.0-32.0 [facility] MCHC (RBC) [Mass/Vol] 31.2 g/dL 32-36 [facility] Platelet mean volume (Bld) [Entitic vol] 10.2 fL 6.2-12.0 [facility] Platelets (Bld) [#/Vol] 269 10*3/uL 150-450 [facility] No Panel InformationOrdered By: Jose Raul Pulliam on 12-11-2023 Estimated GFR (MDRD) Amer 88 mL/min >60 [facility] Comment on above: GFR Calc Estimated GFR (MDRD) Non-Af Amer 73 mL/min >60 [facility] Comment on above: Non- GFR Calc RBC Auto (Bld) [#/Vol]Ordere d By: Jose Raul Pulliam on 12-11-2023 RBC (Bld) [#/Vol] 4.30 10*6/uL 4.2-5.4 [facility] Serum or plasma calcium milagros urement (mass/volume)Ordered By: Jose Raul Pulliam on 12-11-2023 Calcium [Mass/Vol] 8.9 mg/dL 8.5-10.1 [facility] Serum or plasma creatinine m easurement (mass/volume)Ordered By: Jose Raul Pulliam on 12-11-2023 Creatinine [Mass/Vol] 0.80 mg/dL 0.55-1.02 [facility] Comment on above: The validity of the calculated GFR & GFRAA in patients over 70 years has not been determined. Clinical correlation is essential. Serum or plasma urea nitroge n measurement (mass/volume)Ordered By: Jose Raul Pulliam on 12-11-2023 Urea nitrogen [Mass/Vol] 11 mg/dL 7-18 [facility] Thin prep Papanicolaou smear with manual screeningOrdered By: Jose Raul Pulliam on 12-11-2023 Thin prep Papanicolaou smear with manual screening 4 5-15 [facility] Basophil percentageOrdered B y: Jose Raul Pulliam on 03-19-2024 Chloride [Moles/Vol] 111 mmol/L 98-107 [facility] Glucose [Mass/Vol] 92 mg/dL 74-106 [facility] Hemoglobin (Bld) [Mass/Vol] 11.8 g/dL 12.0-15.0 [facility] Potassium [Moles/Vol] 4.2 mmol/L 3.5-5.1 [facility] Sodium [Moles/Vol] 141 mmol/L 136-145 [facility] WBC (Bld) [#/Vol] 5.7 10*3/uL 4.4-11.0 [facility] Determination of erythrocyte mean corpuscular volume (MCV)Ordered By: Jose Raul Pulliam on 11-27-2023 MCV (RBC) [Entitic vol] 85.2 fL 81-99 [facility] Erythrocyte distribution wid th ratioOrdered By: diandraglosterjennifer Vincentjessenia on 11-27-2023 Erythrocyte distribution width (RBC) [Ratio] 15.8 % 11.6-14.6 [facility] Erythrocyte distribution wid th standard deviationOrdered By: Frankyglosterjennifer Pulliam on 11-27-2023 Erythrocyte distribution width (RBC) [Entitic vol] 49.2 fL 35.1-43.9 [facility] Hematocrit Auto (Bld) [Volum e fraction]Ordered By: Jose Raul Pulliam on 11-27-2023 Hematocrit (Bld) [Volume fraction] 37.3 % 37-47 [facility] - Chemistry and C hemistry - challengeOrdered By: Jose Raul Pulliam on 11-27-2023 CO2 [Moles/Vol] 25.0 mmol/L 21.0-32.0 [facility] Urea nitrogen/Creatinine [Mass ratio] 15.4 mg/mg 10-20 [facility] - Hematology and Cell countsOrdered By: Jose Raul Pulliam on 11-27-2023 MCH (RBC) [Entitic mass] 26.9 pg 27.0-32.0 [facility] MCHC (RBC) [Mass/Vol] 31.6 g/dL 32-36 [facility] Platelet mean volume (Bld) [Entitic vol] 9.9 fL 6.2-12.0 [facility] Platelets (Bld) [#/Vol] 287 10*3/uL 150-450 [facility] No Panel InformationOrdered By: Jose Raul Pulliam on 11-27-2023 Estimated GFR (MDRD) Amer 90 mL/min >60 [facility] Comment on above: GFR Calc Estimated GFR (MDRD) Non-Af Amer 75 mL/min >60 [facility] Comment on above: Non- GFR Calc RBC Auto (Bld) [#/Vol]Ordere d By: Jose Raul Pulliam on 11-27-2023 RBC (Bld) [#/Vol] 4.38 10*6/uL 4.2-5.4 [facility] Serum or plasma calcium milagros urement (mass/volume)Ordered By: Jose Raul Pulliam on 11-27-2023 Calcium [Mass/Vol] 8.8 mg/dL 8.5-10.1 [facility] Serum or plasma creatinine m easurement (mass/volume)Ordered By: Jose Raul Pulliam on 11-27-2023 Creatinine [Mass/Vol] 0.78 mg/dL 0.55-1.02 [facility] Comment on above: The validity of the calculated GFR & GFRAA in patients over 70 years has not been determined. Clinical correlation is essential. Serum or plasma urea nitroge n measurement (mass/volume)Ordered By: Jose Raul Pulliam on 11-27-2023 Urea nitrogen [Mass/Vol] 12 mg/dL 7-18 [facility] Thin prep Papanicolaou smear with manual screeningOrdered By: Jose Raul Pulliam on 11-27-2023 Thin prep Papanicolaou smear with manual screening 5 5-15 [facility] Basophil percentageOrdered B y: Jose Raul Pulliam on 11-13-2023 Chloride [Moles/Vol] 112 mmol/L 98-107 [facility] Glucose [Mass/Vol] 81 mg/dL 74-106 [facility] Hemoglobin (Bld) [Mass/Vol] 11.4 g/dL 12.0-15.0 [facility] Potassium [Moles/Vol] 3.9 mmol/L 3.5-5.1 [facility] Sodium [Moles/Vol] 141 mmol/L 136-145 [facility] WBC (Bld) [#/Vol] 6.6 10*3/uL 4.4-11.0 [facility] Determination of erythrocyte mean corpuscular volume (MCV)Ordered By: Jose Raul Pulliam on 11-13-2023 MCV (RBC) [Entitic vol] 86.3 fL 81-99 [facility] Erythrocyte distribution wid th ratioOrdered By: Jose Raul Pulliam on 11-13-2023 Erythrocyte distribution width (RBC) [Ratio] 15.8 % 11.6-14.6 [facility] Erythrocyte distribution wid th standard deviationOrdered By: Jose Raul Pulliam on 11-13-2023 Erythrocyte distribution width (RBC) [Entitic vol] 50.0 fL 35.1-43.9 [facility] Hematocrit Auto (Bld) [Volum e fraction]Ordered By: Jose Raul Pulliam on 11-13-2023 Hematocrit (Bld) [Volume fraction] 37.2 % 37-47 [facility] - Chemistry and C hemistry - challengeOrdered By: Frankyglosterjennifer Pulliam on 11-13-2023 CO2 [Moles/Vol] 25.0 mmol/L 21.0-32.0 [facility] Urea nitrogen/Creatinine [Mass ratio] 15.4 mg/mg 10-20 [facility] - Hematology and Cell countsOrdered By: Jose Raul Pulliam on 11-13-2023 MCH (RBC) [Entitic mass] 26.5 pg 27.0-32.0 [facility] MCHC (RBC) [Mass/Vol] 30.6 g/dL 32-36 [facility] Platelet mean volume (Bld) [Entitic vol] 9.9 fL 6.2-12.0 [facility] Platelets (Bld) [#/Vol] 276 10*3/uL 150-450 [facility] No Panel InformationOrdered By: Jose Raul Pulliam on 11-13-2023 Estimated GFR (MDRD) Amer 90 mL/min >60 [facility] Comment on above: GFR Calc Estimated GFR (MDRD) Non-Af Amer 75 mL/min >60 [facility] Comment on above: Non- GFR Calc RBC Auto (Bld) [#/Vol]Ordere d By: Jose Raul Pulliam on 11-13-2023 RBC (Bld) [#/Vol] 4.31 10*6/uL 4.2-5.4 [facility] Serum or plasma calcium milagros urement (mass/volume)Ordered By: Jose Raul Pulliam on 11-13-2023 Calcium [Mass/Vol] 8.5 mg/dL 8.5-10.1 [facility] Serum or plasma creatinine m easurement (mass/volume)Ordered By: Jose Raul Pulliam on 11-13-2023 Creatinine [Mass/Vol] 0.78 mg/dL 0.55-1.02 [facility] Comment on above: The validity of the calculated GFR & GFRAA in patients over 70 years has not been determined. Clinical correlation is essential. Serum or plasma urea nitroge n measurement (mass/volume)Ordered By: Jose Raul Pulliam on 11-13-2023 Urea nitrogen [Mass/Vol] 12 mg/dL 7-18 [facility] Thin prep Papanicolaou smear with manual screeningOrdered By: Jose Raul Pulliam on 11-13-2023 Thin prep Papanicolaou smear with manual screening 4 5-15 [facility] Basophil percentageOrdered B y: Jose Raul Pulliam on 10-30-2023 Chloride [Moles/Vol] 114 mmol/L 98-107 [facility] Glucose [Mass/Vol] 107 mg/dL 74-106 [facility] Comment on above: Fasting Glucose resu lt from 100 to 125 mg/dL suggests IMPAIRED HOMEOSTASIS per A.D.A. criteria. Hemoglobin (Bld) [Mass/Vol] 11.9 g/dL 12.0-15.0 [facility] Potassium [Moles/Vol] 4.3 mmol/L 3.5-5.1 [facility] Comment on above: Moderate Hemolysis, Result may be falsely increased. Sodium [Moles/Vol] 142 mmol/L 136-145 [facility] WBC (Bld) [#/Vol] 6.0 10*3/uL 4.4-11.0 [facility] Determination of erythrocyte mean corpuscular volume (MCV)Ordered By: Jose Raul Pulliam on 10-30-2023 MCV (RBC) [Entitic vol] 85.7 fL 81-99 [facility] Erythrocyte distribution wid th ratioOrdered By: Jose Raul Pulliam on 10-30-2023 Erythrocyte distribution width (RBC) [Ratio] 15.9 % 11.6-14.6 [facility] Erythrocyte distribution wid th standard deviationOrdered By: Jose Raul Pulliam on 10-30-2023 Erythrocyte distribution width (RBC) [Entitic vol] 49.3 fL 35.1-43.9 [facility] Hematocrit Auto (Bld) [Volum e fraction]Ordered By: Jose Raul Pulliam on 10-30-2023 Hematocrit (Bld) [Volume fraction] 38.5 % 37-47 [facility] - Chemistry and C hemistry - challengeOrdered By: Jose Raul Pulliam on 10-30-2023 CO2 [Moles/Vol] 24.0 mmol/L 21.0-32.0 [facility] Urea nitrogen/Creatinine [Mass ratio] 13.1 mg/mg 10-20 [facility] - Hematology and Cell countsOrdered By: Jose Raul Pulliam on 10-30-2023 MCH (RBC) [Entitic mass] 26.5 pg 27.0-32.0 [facility] MCHC (RBC) [Mass/Vol] 30.9 g/dL 32-36 [facility] Platelet mean volume (Bld) [Entitic vol] 9.9 fL 6.2-12.0 [facility] Platelets (Bld) [#/Vol] 311 10*3/uL 150-450 [facility] No Panel InformationOrdered By: Jose Raul Pulliam on 10-30-2023 Estimated GFR (MDRD) Amer 75 mL/min >60 [facility] Comment on above: GFR Calc Estimated GFR (MDRD) Non-Af Amer 62 mL/min >60 [facility] Comment on above: Non- GFR Calc RBC Auto (Bld) [#/Vol]Ordere d By: Jose Raul Pulliam on 10-30-2023 RBC (Bld) [#/Vol] 4.49 10*6/uL 4.2-5.4 [facility] Serum or plasma calcium milagros urement (mass/volume)Ordered By: Jose Raul Pulliam on 10-30-2023 Calcium [Mass/Vol] 9.4 mg/dL 8.5-10.1 [facility] Serum or plasma creatinine m easurement (mass/volume)Ordered By: Jose Raul Pulliam on 10-30-2023 Creatinine [Mass/Vol] 0.91 mg/dL 0.55-1.02 [facility] Comment on above: The validity of the calculated GFR & GFRAA in patients over 70 years has not been determined. Clinical correlation is essential. Serum or plasma urea nitroge n measurement (mass/volume)Ordered By: Jose Raul Pulliam on 10-30-2023 Urea nitrogen [Mass/Vol] 12 mg/dL 7-18 [facility] Thin prep Papanicolaou smear with manual screeningOrdered By: Frankyglosterjennifer Pulliam on 10-30-2023 Thin prep Papanicolaou smear with manual screening 4 5-15 [facility] Basophil percentageOrdered B y: Jose Raul Pulliam on 10-16-2023 Chloride [Moles/Vol] 113 mmol/L 98-107 [facility] Glucose [Mass/Vol] 89 mg/dL 74-106 [facility] Hemoglobin (Bld) [Mass/Vol] 11.4 g/dL 12.0-15.0 [facility] Potassium [Moles/Vol] 3.9 mmol/L 3.5-5.1 [facility] Sodium [Moles/Vol] 143 mmol/L 136-145 [facility] WBC (Bld) [#/Vol] 6.1 10*3/uL 4.4-11.0 [facility] Determination of erythrocyte mean corpuscular volume (MCV)Ordered By: Jose Raul Pulliam on 10-16-2023 MCV (RBC) [Entitic vol] 86.0 fL 81-99 [facility] Erythrocyte distribution wid th ratioOrdered By: Jose Raul Pulliam on 10-16-2023 Erythrocyte distribution width (RBC) [Ratio] 15.9 % 11.6-14.6 [facility] Erythrocyte distribution wid th standard deviationOrdered By: Jose Raul Pulliam on 10-16-2023 Erythrocyte distribution width (RBC) [Entitic vol] 50.1 fL 35.1-43.9 [facility] Hematocrit Auto (Bld) [Volum e fraction]Ordered By: Jose Raul Pulliam on 10-16-2023 Hematocrit (Bld) [Volume fraction] 36.9 % 37-47 [facility] - Chemistry and C hemistry - challengeOrdered By: Frankyglosterjennifer Pulliam on 10-16-2023 CO2 [Moles/Vol] 24.0 mmol/L 21.0-32.0 [facility] Urea nitrogen/Creatinine [Mass ratio] 16.5 mg/mg 10-20 [facility] - Hematology and Cell countsOrdered By: Jose Raul Pulliam on 10-16-2023 MCH (RBC) [Entitic mass] 26.6 pg 27.0-32.0 [facility] MCHC (RBC) [Mass/Vol] 30.9 g/dL 32-36 [facility] Platelet mean volume (Bld) [Entitic vol] 9.7 fL 6.2-12.0 [facility] Platelets (Bld) [#/Vol] 289 10*3/uL 150-450 [facility] No Panel InformationOrdered By: Jose Raul Pulliam on 10-16-2023 Estimated GFR (MDRD) Amer 98 mL/min >60 [facility] Comment on above: GFR Calc Estimated GFR (MDRD) Non-Af Amer 81 mL/min >60 [facility] Comment on above: Non- GFR Calc RBC Auto (Bld) [#/Vol]Ordere d By: Jose Raul Pulliam on 10-16-2023 RBC (Bld) [#/Vol] 4.29 10*6/uL 4.2-5.4 [facility] Serum or plasma calcium milagros urement (mass/volume)Ordered By: Jose Raul Pulliam on 10-16-2023 Calcium [Mass/Vol] 9.0 mg/dL 8.5-10.1 [facility] Serum or plasma creatinine m easurement (mass/volume)Ordered By: Jose Raul Pulliam on 10-16-2023 Creatinine [Mass/Vol] 0.73 mg/dL 0.55-1.02 [facility] Comment on above: The validity of the calculated GFR & GFRAA in patients over 70 years has not been determined. Clinical correlation is essential. Serum or plasma urea nitroge n measurement (mass/volume)Ordered By: Jose Raul Pulliam on 10-16-2023 Urea nitrogen [Mass/Vol] 12 mg/dL 7-18 [facility] Thin prep Papanicolaou smear with manual screeningOrdered By: Jose Raul Pulliam on 10-16-2023 Thin prep Papanicolaou smear with manual screening 6 5-15 [facility] Basophil percentageOrdered B y: Jose Raul Pulliam on 10-02-2023 Chloride [Moles/Vol] 110 mmol/L 98-107 [facility] Glucose [Mass/Vol] 88 mg/dL 74-106 [facility] Hemoglobin (Bld) [Mass/Vol] 12.3 g/dL 12.0-15.0 [facility] Potassium [Moles/Vol] 4.2 mmol/L 3.5-5.1 [facility] Sodium [Moles/Vol] 139 mmol/L 136-145 [facility] WBC (Bld) [#/Vol] 7.6 10*3/uL 4.4-11.0 [facility] Determination of erythrocyte mean corpuscular volume (MCV)Ordered By: Jose Raul Pulliam on 10-02-2023 MCV (RBC) [Entitic vol] 86.3 fL 81-99 [facility] Erythrocyte distribution wid th ratioOrdered By: Jose Raul Pulliam on 10-02-2023 Erythrocyte distribution width (RBC) [Ratio] 15.9 % 11.6-14.6 [facility] Erythrocyte distribution wid th standard deviationOrdered By: Jose Raul Pulliam on 10-02-2023 Erythrocyte distribution width (RBC) [Entitic vol] 50.3 fL 35.1-43.9 [facility] Hematocrit Auto (Bld) [Volum e fraction]Ordered By: Jose Raul Pulliam on 10-02-2023 Hematocrit (Bld) [Volume fraction] 40.2 % 37-47 [facility] - Chemistry and C hemistry - challengeOrdered By: Jose Raul Pulliam on 10-02-2023 CO2 [Moles/Vol] 24.0 mmol/L 21.0-32.0 [facility] Urea nitrogen/Creatinine [Mass ratio] 15.3 mg/mg 10-20 [facility] - Hematology and Cell countsOrdered By: Jose Raul Pulliam on 10-02-2023 MCH (RBC) [Entitic mass] 26.4 pg 27.0-32.0 [facility] MCHC (RBC) [Mass/Vol] 30.6 g/dL 32-36 [facility] Platelets (Bld) [#/Vol] 311 10*3/uL 150-450 [facility] No Panel InformationOrdered By: Jose Raul Pulliam on 10-02-2023 Estimated GFR (MDRD) Amer 90 mL/min >60 [facility] Comment on above: GFR Calc Estimated GFR (MDRD) Non-Af Amer 74 mL/min >60 [facility] Comment on above: Non- GFR Calc Platelet mean volume Inocencio-Ec ker (Bld) [Entitic vol]Ordered By: Jose Raul Pulliam on 10-02-2023 Platelet mean volume (Bld) [Entitic vol] 9.9 fL 6.2-12.0 [facility] RBC Auto (Bld) [#/Vol]Ordere d By: Jose Raul Pulliam on 10-02-2023 RBC (Bld) [#/Vol] 4.66 10*6/uL 4.2-5.4 [facility] Serum or plasma calcium milagros urement (mass/volume)Ordered By: Jose Raul Pulliam on 10-02-2023 Calcium [Mass/Vol] 9.1 mg/dL 8.5-10.1 [facility] Serum or plasma creatinine m easurement (mass/volume)Ordered By: Jose Raul Pulliam on 10-02-2023 Creatinine [Mass/Vol] 0.78 mg/dL 0.55-1.02 [facility] Comment on above: The validity of the calculated GFR & GFRAA in patients over 70 years has not been determined. Clinical correlation is essential. Serum or plasma urea nitroge n measurement (mass/volume)Ordered By: Jose Raul Pulliam on 10-02-2023 Urea nitrogen [Mass/Vol] 12 mg/dL 7-18 [facility] Thin prep Papanicolaou smear with manual screeningOrdered By: Jose Raul Pulliam on 10-02-2023 Thin prep Papanicolaou smear with manual screening 5 5-15 [facility] Basophil percentageOrdered B y: Jose Raul Pulliam on 09-18-2023 Chloride [Moles/Vol] 111 mmol/L 98-107 [facility] Glucose [Mass/Vol] 90 mg/dL 74-106 [facility] Potassium [Moles/Vol] 4.2 mmol/L 3.5-5.1 [facility] Sodium [Moles/Vol] 141 mmol/L 136-145 [facility] WBC (Bld) [#/Vol] 7.5 10*3/uL 4.4-11.0 [facility] Blood erythrocytes count (nu mber/volume)Ordered By: Jose Raul Pulliam on 09-18-2023 RBC (Bld) [#/Vol] 4.37 10*6/uL 4.2-5.4 [facility] Blood hemoglobin measurement (mass/volume)Ordered By: Jose Raul Pulliam on 09-18-2023 Hemoglobin (Bld) [Mass/Vol] 11.4 g/dL 12.0-15.0 [facility] Blood platelet mean volumeOr dered By: Jose Raul Pulliam on 09-18-2023 Platelet mean volume (Bld) [Entitic vol] 9.9 fL 6.2-12.0 [facility] Determination of erythrocyte mean corpuscular volume (MCV)Ordered By: Jose Raul Pulliam on 09-18-2023 MCV (RBC) [Entitic vol] 85.8 fL 81-99 [facility] Hematocrit Auto (Bld) [Volum e fraction]Ordered By: Jose Raul Pulliam on 09-18-2023 Hematocrit (Bld) [Volume fraction] 37.5 % 37-47 [facility] - Chemistry and C hemistry - challengeOrdered By: Jose Raul Pulliam on 09-18-2023 CO2 [Moles/Vol] 26.0 mmol/L 21.0-32.0 [facility] Urea nitrogen/Creatinine [Mass ratio] 16.6 mg/mg 10-20 [facility] - Hematology and Cell countsOrdered By: Jose Raul Pulliam on 09-18-2023 Erythrocyte distribution width (RBC) [Entitic vol] 49.8 fL 35.1-43.9 [facility] Erythrocyte distribution width (RBC) [Ratio] 15.8 % 11.6-14.6 [facility] MCH (RBC) [Entitic mass] 26.1 pg 27.0-32.0 [facility] MCHC Auto (RBC) [Mass/Vol]Or dered By: Jose Raul Pulliam on 09-18-2023 MCHC (RBC) [Mass/Vol] 30.4 g/dL 32-36 [facility] No Panel InformationOrdered By: Jose Raul Pulliam on 09-18-2023 Estimated GFR (MDRD) Amer 90 mL/min >60 [facility] Comment on above: GFR Calc Estimated GFR (MDRD) Non-Af Amer 74 mL/min >60 [facility] Comment on above: Non- GFR Calc Platelets bldOrdered By: Sam Pulliam on 09-18-2023 Platelets (Bld) [#/Vol] 276 10*3/uL 150-450 [facility] Serum or plasma calcium milagros urement (mass/volume)Ordered By: Jose Raul Pulliam on 09-18-2023 Calcium [Mass/Vol] 8.7 mg/dL 8.5-10.1 [facility] Serum or plasma creatinine m easurement (mass/volume)Ordered By: Jose Raul Pulliam on 09-18-2023 Creatinine [Mass/Vol] 0.78 mg/dL 0.55-1.02 [facility] Comment on above: The validity of the calculated GFR & GFRAA in patients over 70 years has not been determined. Clinical correlation is essential. Serum or plasma urea nitroge n measurement (mass/volume)Ordered By: Jose Raul Pulliam on 09-18-2023 Urea nitrogen [Mass/Vol] 13 mg/dL 7-18 [facility] Thin prep Papanicolaou smear with manual screeningOrdered By: Jose Raul Pulliam on 09-18-2023 Thin prep Papanicolaou smear with manual screening 4 5-15 [facility] Basophil percentageOrdered B y: Jose Raul Pulliam on 09-04-2023 Chloride [Moles/Vol] 112 mmol/L 98-107 [facility] Glucose [Mass/Vol] 91 mg/dL 74-106 [facility] Potassium [Moles/Vol] 3.9 mmol/L 3.5-5.1 [facility] Sodium [Moles/Vol] 141 mmol/L 136-145 [facility] WBC (Bld) [#/Vol] 6.3 10*3/uL 4.4-11.0 [facility] Blood erythrocytes count (nu mber/volume)Ordered By: Jose Raul Pulliam on 09-04-2023 RBC (Bld) [#/Vol] 4.18 10*6/uL 4.2-5.4 [facility] Blood hemoglobin measurement (mass/volume)Ordered By: Jose Raul Pulliam on 09-04-2023 Hemoglobin (Bld) [Mass/Vol] 11.1 g/dL 12.0-15.0 [facility] Blood platelet mean volumeOr dered By: Jose Raul Pulliam on 09-04-2023 Platelet mean volume (Bld) [Entitic vol] 10.1 fL 6.2-12.0 [facility] Determination of erythrocyte mean corpuscular volume (MCV)Ordered By: Jose Raul Pulliam on 09-04-2023 MCV (RBC) [Entitic vol] 88.3 fL 81-99 [facility] Hematocrit Auto (Bld) [Volum e fraction]Ordered By: Jose Raul Pulliam on 09-04-2023 Hematocrit (Bld) [Volume fraction] 36.9 % 37-47 [facility] - Chemistry and C hemistry - challengeOrdered By: Jose Raul Pulliam on 09-04-2023 CO2 [Moles/Vol] 26.0 mmol/L 21.0-32.0 [facility] Urea nitrogen/Creatinine [Mass ratio] 18.6 mg/mg 10-20 [facility] - Hematology and Cell countsOrdered By: Jose Raul Pulliam on 09-04-2023 Erythrocyte distribution width (RBC) [Entitic vol] 52.0 fL 35.1-43.9 [facility] Erythrocyte distribution width (RBC) [Ratio] 16.0 % 11.6-14.6 [facility] MCH (RBC) [Entitic mass] 26.6 pg 27.0-32.0 [facility] MCHC Auto (RBC) [Mass/Vol]Or dered By: Jose Raul Pulliam on 09-04-2023 MCHC (RBC) [Mass/Vol] 30.1 g/dL 32-36 [facility] No Panel InformationOrdered By: Jose Raul Pulliam on 09-04-2023 Estimated GFR (MDRD) Amer 87 mL/min >60 [facility] Comment on above: GFR Calc Estimated GFR (MDRD) Non-Af Amer 72 mL/min >60 [facility] Comment on above: Non- GFR Calc Platelets bldOrdered By: Sam Pulliam on 09-04-2023 Platelets (Bld) [#/Vol] 255 10*3/uL 150-450 [facility] Serum or plasma calcium milagros urement (mass/volume)Ordered By: Jose Raul Pulliam on 09-04-2023 Calcium [Mass/Vol] 8.7 mg/dL 8.5-10.1 [facility] Serum or plasma creatinine m easurement (mass/volume)Ordered By: Jose Raul Pulliam on 09-04-2023 Creatinine [Mass/Vol] 0.81 mg/dL 0.55-1.02 [facility] Comment on above: The validity of the calculated GFR & GFRAA in patients over 70 years has not been determined. Clinical correlation is essential. Serum or plasma urea nitroge n measurement (mass/volume)Ordered By: Jose Raul Pulliam on 09-04-2023 Urea nitrogen [Mass/Vol] 15 mg/dL 7-18 [facility] Thin prep Papanicolaou smear with manual screeningOrdered By: Jose Raul Pulliam on 09-04-2023 Thin prep Papanicolaou smear with manual screening 3 5-15 [facility] Basophil percentageOrdered B y: Jose Raul Pulliam on 08-21-2023 Chloride [Moles/Vol] 112 mmol/L 98-107 [facility] Glucose [Mass/Vol] 95 mg/dL 74-106 [facility] Potassium [Moles/Vol] 4.4 mmol/L 3.5-5.1 [facility] Sodium [Moles/Vol] 142 mmol/L 136-145 [facility] WBC (Bld) [#/Vol] 6.5 10*3/uL 4.4-11.0 [facility] Blood erythrocytes count (nu mber/volume)Ordered By: Jose Raul Pulliam on 08-21-2023 RBC (Bld) [#/Vol] 4.39 10*6/uL 4.2-5.4 [facility] Blood hemoglobin measurement (mass/volume)Ordered By: Jose Raul Pulliam on 08-21-2023 Hemoglobin (Bld) [Mass/Vol] 11.7 g/dL 12.0-15.0 [facility] Blood platelet mean volumeOr dered By: Jose Raul Pulliam on 08-21-2023 Platelet mean volume (Bld) [Entitic vol] 9.7 fL 6.2-12.0 [facility] Determination of erythrocyte mean corpuscular volume (MCV)Ordered By: Jose Raul Pulliam on 08-21-2023 MCV (RBC) [Entitic vol] 86.6 fL 81-99 [facility] Hematocrit Auto (Bld) [Volum e fraction]Ordered By: Jose Raul Pulliam on 08-21-2023 Hematocrit (Bld) [Volume fraction] 38.0 % 37-47 [facility] - Chemistry and C hemistry - challengeOrdered By: Jose Raul Pulliam on 08-21-2023 CO2 [Moles/Vol] 26.0 mmol/L 21.0-32.0 [facility] Urea nitrogen/Creatinine [Mass ratio] 18.7 mg/mg 10-20 [facility] - Hematology and Cell countsOrdered By: Jose Raul Pulliam on 08-21-2023 Erythrocyte distribution width (RBC) [Entitic vol] 50.3 fL 35.1-43.9 [facility] Erythrocyte distribution width (RBC) [Ratio] 15.9 % 11.6-14.6 [facility] MCH (RBC) [Entitic mass] 26.7 pg 27.0-32.0 [facility] MCHC Auto (RBC) [Mass/Vol]Or dered By: Jose Raul Pulliam on 08-21-2023 MCHC (RBC) [Mass/Vol] 30.8 g/dL - [facility] No Panel InformationOrdered By: Jose Raul Pulliam on 08-21-2023 Estimated GFR (MDRD) Amer 87 mL/min >60 [facility] Comment on above: GFR Calc Estimated GFR (MDRD) Non-Af Amer 72 mL/min >60 [facility] Comment on above: Non- GFR Calc Platelets bldOrdered By: Sam Pulliam on 08-21-2023 Platelets (Bld) [#/Vol] 290 10*3/uL 150-450 [facility] Serum or plasma calcium milagros urement (mass/volume)Ordered By: Jose Raul Pulliam on 08-21-2023 Calcium [Mass/Vol] 8.9 mg/dL 8.5-10.1 [facility] Serum or plasma creatinine m easurement (mass/volume)Ordered By: Jose Raul Pulliam on 08-21-2023 Creatinine [Mass/Vol] 0.80 mg/dL 0.55-1.02 [facility] Comment on above: The validity of the calculated GFR & GFRAA in patients over 70 years has not been determined. Clinical correlation is essential. Serum or plasma urea nitroge n measurement (mass/volume)Ordered By: Jose Raul Pulliam on 08-21-2023 Urea nitrogen [Mass/Vol] 15 mg/dL 7-18 [facility] Thin prep Papanicolaou smear with manual screeningOrdered By: Jose Raul Pulliam on 08-21-2023 Thin prep Papanicolaou smear with manual screening 4 5-15 [facility] Basophil percentageOrdered B y: Jose Raul Pulliam on 08-07-2023 Chloride [Moles/Vol] 112 mmol/L 98-107 [facility] Glucose [Mass/Vol] 90 mg/dL 74-106 [facility] Potassium [Moles/Vol] 3.8 mmol/L 3.5-5.1 [facility] Sodium [Moles/Vol] 142 mmol/L 136-145 [facility] WBC (Bld) [#/Vol] 6.4 10*3/uL 4.4-11.0 [facility] Blood erythrocytes count (nu mber/volume)Ordered By: Jose Raul Pulliam on 08-07-2023 RBC (Bld) [#/Vol] 4.26 10*6/uL 4.2-5.4 [facility] Blood hemoglobin measurement (mass/volume)Ordered By: Jose Raul Pulliam on 08-07-2023 Hemoglobin (Bld) [Mass/Vol] 11.2 g/dL 12.0-15.0 [facility] Blood platelet mean volumeOr dered By: Jose Raul Pulliam on 08-07-2023 Platelet mean volume (Bld) [Entitic vol] 9.7 fL 6.2-12.0 [facility] Determination of erythrocyte mean corpuscular volume (MCV)Ordered By: Jose Raul Pulliam on 08-07-2023 MCV (RBC) [Entitic vol] 87.8 fL 81-99 [facility] Hematocrit Auto (Bld) [Volum e fraction]Ordered By: Jose Raul Pulliam on 08-07-2023 Hematocrit (Bld) [Volume fraction] 37.4 % 37-47 [facility] - Chemistry and C hemistry - challengeOrdered By: Jose Raul Pulliam on 08-07-2023 CO2 [Moles/Vol] 26.0 mmol/L 21.0-32.0 [facility] Urea nitrogen/Creatinine [Mass ratio] 21.0 mg/mg 10-20 [facility] - Hematology and Cell countsOrdered By: Jose Raul Pulliam on 08-07-2023 Erythrocyte distribution width (RBC) [Entitic vol] 50.5 fL 35.1-43.9 [facility] Erythrocyte distribution width (RBC) [Ratio] 15.8 % 11.6-14.6 [facility] MCH (RBC) [Entitic mass] 26.3 pg 27.0-32.0 [facility] MCHC Auto (RBC) [Mass/Vol]Or dered By: Jose Raul Pulliam on 08-07-2023 MCHC (RBC) [Mass/Vol] 29.9 g/dL 32-36 [facility] No Panel InformationOrdered By: Jose Raul Pulliam on 08-07-2023 Estimated GFR (MDRD) Amer 87 mL/min >60 [facility] Comment on above: GFR Calc Estimated GFR (MDRD) Non-Af Amer 72 mL/min >60 [facility] Comment on above: Non- GFR Calc Platelets bldOrdered By: Sam Pulliam on 08-07-2023 Platelets (Bld) [#/Vol] 279 10*3/uL 150-450 [facility] Serum or plasma calcium milagros urement (mass/volume)Ordered By: Jose Raul Pulliam on 08-07-2023 Calcium [Mass/Vol] 8.6 mg/dL 8.5-10.1 [facility] Serum or plasma creatinine m easurement (mass/volume)Ordered By: Jose Raul Pulliam on 08-07-2023 Creatinine [Mass/Vol] 0.81 mg/dL 0.55-1.02 [facility] Comment on above: The validity of the calculated GFR & GFRAA in patients over 70 years has not been determined. Clinical correlation is essential. Serum or plasma urea nitroge n measurement (mass/volume)Ordered By: Jose Raul Pulliam on 08-07-2023 Urea nitrogen [Mass/Vol] 17 mg/dL 7-18 [facility] Thin prep Papanicolaou smear with manual screeningOrdered By: Jose Raul Pulliam on 08-07-2023 Thin prep Papanicolaou smear with manual screening 4 5-15 [facility] Basophil percentageOrdered B y: Jose Raul Pulliam on 07-23-2023 Chloride [Moles/Vol] 111 mmol/L 98-107 [facility] Glucose [Mass/Vol] 80 mg/dL 74-106 [facility] Potassium [Moles/Vol] 3.8 mmol/L 3.5-5.1 [facility] Sodium [Moles/Vol] 141 mmol/L 136-145 [facility] WBC (Bld) [#/Vol] 5.8 10*3/uL 4.4-11.0 [facility] Blood erythrocytes count (nu mber/volume)Ordered By: Jose Raul Pulliam on 07-23-2023 RBC (Bld) [#/Vol] 4.05 10*6/uL 4.2-5.4 [facility] Blood hemoglobin measurement (mass/volume)Ordered By: Jose Raul Pulliam on 07-23-2023 Hemoglobin (Bld) [Mass/Vol] 10.9 g/dL 12.0-15.0 [facility] Blood platelet mean volumeOr dered By: Jose Raul Pulliam on 07-23-2023 Platelet mean volume (Bld) [Entitic vol] 9.8 fL 6.2-12.0 [facility] Determination of erythrocyte mean corpuscular volume (MCV)Ordered By: Jose Raul Pulliam on 07-23-2023 MCV (RBC) [Entitic vol] 88.1 fL 81-99 [facility] Hematocrit Auto (Bld) [Volum e fraction]Ordered By: Jose Raul Pulliam on 07-23-2023 Hematocrit (Bld) [Volume fraction] 35.7 % 37-47 [facility] - Chemistry and C hemistry - challengeOrdered By: Jose Raul Pulliam on 07-23-2023 CO2 [Moles/Vol] 24.0 mmol/L 21.0-32.0 [facility] Urea nitrogen/Creatinine [Mass ratio] 19.1 mg/mg 10-20 [facility] - Hematology and Cell countsOrdered By: Jose Raul Pulliam on 07-23-2023 Erythrocyte distribution width (RBC) [Entitic vol] 51.1 fL 35.1-43.9 [facility] Erythrocyte distribution width (RBC) [Ratio] 15.8 % 11.6-14.6 [facility] MCH (RBC) [Entitic mass] 26.9 pg 27.0-32.0 [facility] MCHC Auto (RBC) [Mass/Vol]Or dered By: Jose Raul Pulliam on 07-23-2023 MCHC (RBC) [Mass/Vol] 30.5 g/dL 32-36 [facility] No Panel InformationOrdered By: Jose Raul Pulliam on 07-23-2023 Estimated GFR (MDRD) Amer 97 mL/min >60 [facility] Comment on above: GFR Calc Estimated GFR (MDRD) Non-Af Amer 80 mL/min >60 [facility] Comment on above: Non- GFR Calc Platelets bldOrdered By: Sam Pulliam on 07-23-2023 Platelets (Bld) [#/Vol] 240 10*3/uL 150-450 [facility] Serum or plasma calcium milagros urement (mass/volume)Ordered By: Jose Raul Pulliam on 07-23-2023 Calcium [Mass/Vol] 8.3 mg/dL 8.5-10.1 [facility] Serum or plasma creatinine m easurement (mass/volume)Ordered By: Jose Raul Pulliam on 07-23-2023 Creatinine [Mass/Vol] 0.73 mg/dL 0.55-1.02 [facility] Comment on above: The validity of the calculated GFR & GFRAA in patients over 70 years has not been determined. Clinical correlation is essential. Serum or plasma urea nitroge n measurement (mass/volume)Ordered By: Jose Raul Pulliam on 07-23-2023 Urea nitrogen [Mass/Vol] 14 mg/dL 7-18 [facility] Thin prep Papanicolaou smear with manual screeningOrdered By: Jose Raul Pulliam on 07-23-2023 Thin prep Papanicolaou smear with manual screening 6 5-15 [facility] Basophil percentageOrdered B y: Jose Raul Pulliam on 07-09-2023 Chloride [Moles/Vol] 111 mmol/L 98-107 [facility] Glucose [Mass/Vol] 93 mg/dL 74-106 [facility] Potassium [Moles/Vol] 4.1 mmol/L 3.5-5.1 [facility] Sodium [Moles/Vol] 142 mmol/L 136-145 [facility] WBC (Bld) [#/Vol] 5.5 10*3/uL 4.4-11.0 [facility] Blood erythrocytes count (nu mber/volume)Ordered By: Jose Raul Pulliam on 07-09-2023 RBC (Bld) [#/Vol] 4.31 10*6/uL 4.2-5.4 [facility] Blood hemoglobin measurement (mass/volume)Ordered By: Jose Raul Pulliam on 07-09-2023 Hemoglobin (Bld) [Mass/Vol] 11.5 g/dL 12.0-15.0 [facility] Blood platelet mean volumeOr dered By: Jose Raul Pulliam on 07-09-2023 Platelet mean volume (Bld) [Entitic vol] 9.3 fL 6.2-12.0 [facility] Determination of erythrocyte mean corpuscular volume (MCV)Ordered By: Jose Raul Pulliam on 07-09-2023 MCV (RBC) [Entitic vol] 87.0 fL 81-99 [facility] Hematocrit Auto (Bld) [Volum e fraction]Ordered By: Jose Raul Pulliam on 07-09-2023 Hematocrit (Bld) [Volume fraction] 37.5 % 37-47 [facility] - Chemistry and C hemistry - challengeOrdered By: Jose Raul Pulliam on 07-09-2023 CO2 [Moles/Vol] 25.0 mmol/L 21.0-32.0 [facility] Urea nitrogen/Creatinine [Mass ratio] 21.9 mg/mg 10-20 [facility] - Hematology and Cell countsOrdered By: Jose Raul Pulliam on 07-09-2023 Erythrocyte distribution width (RBC) [Entitic vol] 50.3 fL 35.1-43.9 [facility] Erythrocyte distribution width (RBC) [Ratio] 15.7 % 11.6-14.6 [facility] MCH (RBC) [Entitic mass] 26.7 pg 27.0-32.0 [facility] MCHC Auto (RBC) [Mass/Vol]Or dered By: Jose Raul Pulliam on 07-09-2023 MCHC (RBC) [Mass/Vol] 30.7 g/dL 32-36 [facility] No Panel InformationOrdered By: Jose Raul Pulliam on 07-09-2023 Estimated GFR (MDRD) Amer 85 mL/min >60 [facility] Comment on above: GFR Calc Estimated GFR (MDRD) Non-Af Amer 70 mL/min >60 [facility] Comment on above: Non- GFR Calc Platelets bldOrdered By: Sam Pulliam on 07-09-2023 Platelets (Bld) [#/Vol] 313 10*3/uL 150-450 [facility] Serum or plasma calcium milagros urement (mass/volume)Ordered By: Jose Raul Pulliam on 07-09-2023 Calcium [Mass/Vol] 8.7 mg/dL 8.5-10.1 [facility] Serum or plasma creatinine m easurement (mass/volume)Ordered By: Jose Raul Pulliam on 07-09-2023 Creatinine [Mass/Vol] 0.82 mg/dL 0.55-1.02 [facility] Comment on above: The validity of the calculated GFR & GFRAA in patients over 70 years has not been determined. Clinical correlation is essential. Serum or plasma urea nitroge n measurement (mass/volume)Ordered By: Jose Raul Pulliam on 07-09-2023 Urea nitrogen [Mass/Vol] 18 mg/dL 7-18 [facility] Thin prep Papanicolaou smear with manual screeningOrdered By: Jose Raul Pulliam on 07-09-2023 Thin prep Papanicolaou smear with manual screening 6 5-15 [facility] Absolute lymphocyte countOrd ered By: Jose Raul Pulliam on 06-25-2023 Lymphocytes Auto (Unsp spec) [#/Vol] 1.61 10*3/uL 0.83-4.51 [facility] Basophil percentageOrdered B y: Jose Raul Pulliam on 06-25-2023 Basophils/100 WBC (Bld) 0.4 % 0-1 [facility] Chloride [Moles/Vol] 111 mmol/L 98-107 [facility] Eosinophils/100 WBC (Bld) 2.8 % 0-5 [facility] Glucose [Mass/Vol] 102 mg/dL 74-106 [facility] Comment on above: Fasting Glucose resu lt from 100 to 125 mg/dL suggests IMPAIRED HOMEOSTASIS per A.D.A. criteria. Neutrophils (Bld) [#/Vol] 4.6 10*3/uL 2.0-7.7 [facility] Neutrophils/100 WBC (Bld) 64.1 % 47-70 [facility] Potassium [Moles/Vol] 4.0 mmol/L 3.5-5.1 [facility] Sodium [Moles/Vol] 141 mmol/L 136-145 [facility] WBC (Bld) [#/Vol] 7.2 10*3/uL 4.4-11.0 [facility] Blood erythrocytes count (nu mber/volume)Ordered By: Jose Raul Pulliam on 06-25-2023 RBC (Bld) [#/Vol] 4.23 10*6/uL 4.2-5.4 [facility] Blood hemoglobin measurement (mass/volume)Ordered By: Jose Raul Pulliam on 06-25-2023 Hemoglobin (Bld) [Mass/Vol] 11.4 g/dL 12.0-15.0 [facility] Blood lymphocytes/100 leukoc ytesOrdered By: Jose Raul Pulliam on 06-25-2023 Lymphocytes/100 WBC (Bld) 22.4 % 19-41 [facility] Blood monocytes/100 leukocyt esOrdered By: Jose Raul Pulliam on 06-25-2023 Monocytes/100 WBC (Bld) 9.7 % 0-10 [facility] Blood platelet mean volumeOr dered By: Jose Raul Pulliam on 06-25-2023 Platelet mean volume (Bld) [Entitic vol] 9.7 fL 6.2-12.0 [facility] Determination of erythrocyte mean corpuscular volume (MCV)Ordered By: Jose Raul Pulliam on 06-25-2023 MCV (RBC) [Entitic vol] 87.9 fL 81-99 [facility] Hematocrit Auto (Bld) [Volum e fraction]Ordered By: Jose Raul Pulliam on 06-25-2023 Hematocrit (Bld) [Volume fraction] 37.2 % 37-47 [facility] - Chemistry and C hemistry - challengeOrdered By: Jose Raul Pulliam on 06-25-2023 CO2 [Moles/Vol] 24.0 mmol/L 21.0-32.0 [facility] Urea nitrogen/Creatinine [Mass ratio] 19.6 mg/mg 10-20 [facility] - Hematology and Cell countsOrdered By: Jose Raul Pulliam on 06-25-2023 Erythrocyte distribution width (RBC) [Entitic vol] 51.2 fL 35.1-43.9 [facility] Erythrocyte distribution width (RBC) [Ratio] 15.7 % 11.6-14.6 [facility] Immature granulocytes/100 WBC (Bld) 0.600 % 0.0-0.9 [facility] Comment on above: IG% - Immature Granu locytes (promyelocytes, myelocytes and metamyelocytes) > 1% indicates that a LEFT SHIFT is Present. MCH (RBC) [Entitic mass] 27.0 pg 27.0-32.0 [facility] Nucleated RBC/100 WBC (Bld) [Ratio] 0 % 0-5 [facility] MCHC Auto (RBC) [Mass/Vol]Or dered By: Jose Raul Pulliam on 06-25-2023 MCHC (RBC) [Mass/Vol] 30.6 g/dL 32-36 [facility] No Panel InformationOrdered By: Jose Raul Pulliam on 06-25-2023 Estimated GFR (MDRD) Amer 93 mL/min >60 [facility] Comment on above: GFR Calc Estimated GFR (MDRD) Non-Af Amer 76 mL/min >60 [facility] Comment on above: Non- GFR Calc Platelets bldOrdered By: Sam Pulliam on 06-25-2023 Platelets (Bld) [#/Vol] 269 10*3/uL 150-450 [facility] Serum or plasma calcium milagros urement (mass/volume)Ordered By: Jose Raul Pulliam on 06-25-2023 Calcium [Mass/Vol] 8.4 mg/dL 8.5-10.1 [facility] Serum or plasma creatinine m easurement (mass/volume)Ordered By: Jose Raul Pulliam on 06-25-2023 Creatinine [Mass/Vol] 0.76 mg/dL 0.55-1.02 [facility] Comment on above: The validity of the calculated GFR & GFRAA in patients over 70 years has not been determined. Clinical correlation is essential. Serum or plasma urea nitroge n measurement (mass/volume)Ordered By: Jose Raul Pulliam on 06-25-2023 Urea nitrogen [Mass/Vol] 15 mg/dL 7-18 [facility] Thin prep Papanicolaou smear with manual screeningOrdered By: Jose Raul Pulliam on 06-25-2023 Thin prep Papanicolaou smear with manual screening 6 5-15 [facility] Basophil percentageOrdered B y: Jose Raul Pulliam on 06-11-2023 Chloride [Moles/Vol] 109 mmol/L 98-107 [facility] Glucose [Mass/Vol] 85 mg/dL 74-106 [facility] Potassium [Moles/Vol] 4.1 mmol/L 3.5-5.1 [facility] Sodium [Moles/Vol] 140 mmol/L 136-145 [facility] WBC (Bld) [#/Vol] 6.7 10*3/uL 4.4-11.0 [facility] Blood erythrocytes count (nu mber/volume)Ordered By: Jose Raul Pulliam on 06-11-2023 RBC (Bld) [#/Vol] 4.09 10*6/uL 4.2-5.4 [facility] Blood hemoglobin measurement (mass/volume)Ordered By: Jose Raul Pulliam on 06-11-2023 Hemoglobin (Bld) [Mass/Vol] 11.1 g/dL 12.0-15.0 [facility] Blood platelet mean volumeOr dered By: Jose Raul Pulliam on 06-11-2023 Platelet mean volume (Bld) [Entitic vol] 10.0 fL 6.2-12.0 [facility] Determination of erythrocyte mean corpuscular volume (MCV)Ordered By: Jose Raul Pulliam on 06-11-2023 MCV (RBC) [Entitic vol] 88.3 fL 81-99 [facility] Hematocrit Auto (Bld) [Volum e fraction]Ordered By: Jose Raul Pulliam on 06-11-2023 Hematocrit (Bld) [Volume fraction] 36.1 % 37-47 [facility] - Chemistry and C hemistry - challengeOrdered By: Jose Raul Pulliam on 06-11-2023 CO2 [Moles/Vol] 25.0 mmol/L 21.0-32.0 [facility] Urea nitrogen/Creatinine [Mass ratio] 17.9 mg/mg 10-20 [facility] - Hematology and Cell countsOrdered By: Jose Raul Pulliam on 06-11-2023 Erythrocyte distribution width (RBC) [Entitic vol] 50.2 fL 35.1-43.9 [facility] Erythrocyte distribution width (RBC) [Ratio] 15.5 % 11.6-14.6 [facility] MCH (RBC) [Entitic mass] 27.1 pg 27.0-32.0 [facility] MCHC Auto (RBC) [Mass/Vol]Or dered By: Jose Raul Pulliam on 06-11-2023 MCHC (RBC) [Mass/Vol] 30.7 g/dL 32-36 [facility] No Panel InformationOrdered By: Jose Raul Pulliam on 06-11-2023 Estimated GFR (MDRD) Amer 98 mL/min >60 [facility] Comment on above: GFR Calc Estimated GFR (MDRD) Non-Af Amer 81 mL/min >60 [facility] Comment on above: Non- GFR Calc Platelets bldOrdered By: Sam Pulliam on 06-11-2023 Platelets (Bld) [#/Vol] 266 10*3/uL 150-450 [facility] Serum or plasma calcium milagros urement (mass/volume)Ordered By: Jose Raul Pulliam on 06-11-2023 Calcium [Mass/Vol] 8.4 mg/dL 8.5-10.1 [facility] Serum or plasma creatinine m easurement (mass/volume)Ordered By: Jose Raul Pulliam on 06-11-2023 Creatinine [Mass/Vol] 0.72 mg/dL 0.55-1.02 [facility] Comment on above: The validity of the calculated GFR & GFRAA in patients over 70 years has not been determined. Clinical correlation is essential. Serum or plasma urea nitroge n measurement (mass/volume)Ordered By: Jose Raul Pulliam on 06-11-2023 Urea nitrogen [Mass/Vol] 13 mg/dL - [facility] Thin prep Papanicolaou smear with manual screeningOrdered By: Jose Raul Pulliam on 06-11-2023 Thin prep Papanicolaou smear with manual screening 6 -15 [facility] Basophil percentageOrdered B y: Jose Raul Pulliam on 05-28-2023 Chloride [Moles/Vol] 111 mmol/L 98-107 [facility] Glucose [Mass/Vol] 91 mg/dL 74-106 [facility] Potassium [Moles/Vol] 4.0 mmol/L 3.5-5.1 [facility] Sodium [Moles/Vol] 142 mmol/L 136-145 [facility] WBC (Bld) [#/Vol] 6.9 10*3/uL 4.4-11.0 [facility] Blood erythrocytes count (nu mber/volume)Ordered By: Jose Raul Pulliam on 05-28-2023 RBC (Bld) [#/Vol] 4.28 10*6/uL 4.2-5.4 [facility] Blood hemoglobin measurement (mass/volume)Ordered By: Jose Raul Pulliam on 05-28-2023 Hemoglobin (Bld) [Mass/Vol] 11.7 g/dL 12.0-15.0 [facility] Blood platelet mean volumeOr dered By: Jose Raul Pulliam on 05-28-2023 Platelet mean volume (Bld) [Entitic vol] 9.8 fL 6.2-12.0 [facility] Determination of erythrocyte mean corpuscular volume (MCV)Ordered By: Jose Raul Pulliam on 05-28-2023 MCV (RBC) [Entitic vol] 87.6 fL 81-99 [facility] Hematocrit Auto (Bld) [Volum e fraction]Ordered By: Jose Raul Pulliam on 05-28-2023 Hematocrit (Bld) [Volume fraction] 37.5 % 37-47 [facility] - Chemistry and C hemistry - challengeOrdered By: Jose Raul Pulliam on 05-28-2023 CO2 [Moles/Vol] 25.0 mmol/L 21.0-32.0 [facility] Urea nitrogen/Creatinine [Mass ratio] 23.5 mg/mg 10-20 [facility] - Hematology and Cell countsOrdered By: Jose Raul Pulliam on 05-28-2023 Erythrocyte distribution width (RBC) [Entitic vol] 49.4 fL 35.1-43.9 [facility] Erythrocyte distribution width (RBC) [Ratio] 15.6 % 11.6-14.6 [facility] MCH (RBC) [Entitic mass] 27.3 pg 27.0-32.0 [facility] MCHC Auto (RBC) [Mass/Vol]Or dered By: Jose Raul Pulliam on 05-28-2023 MCHC (RBC) [Mass/Vol] 31.2 g/dL 32-36 [facility] No Panel InformationOrdered By: Jose Raul Pulliam on 05-28-2023 Estimated GFR (MDRD) Amer 99 mL/min >60 [facility] Comment on above: GFR Calc Estimated GFR (MDRD) Non-Af Amer 82 mL/min >60 [facility] Comment on above: Non- GFR Calc Platelets bldOrdered By: Sam Pulliam on 05-28-2023 Platelets (Bld) [#/Vol] 266 10*3/uL 150-450 [facility] Serum or plasma calcium milagors urement (mass/volume)Ordered By: Jose Raul Pulliam on 05-28-2023 Calcium [Mass/Vol] 8.8 mg/dL 8.5-10.1 [facility] Serum or plasma creatinine m easurement (mass/volume)Ordered By: Jose Raul Pulliam on 05-28-2023 Creatinine [Mass/Vol] 0.72 mg/dL 0.55-1.02 [facility] Comment on above: The validity of the calculated GFR & GFRAA in patients over 70 years has not been determined. Clinical correlation is essential. Serum or plasma urea nitroge n measurement (mass/volume)Ordered By: Jose Raul Pulliam on 05-28-2023 Urea nitrogen [Mass/Vol] 17 mg/dL 7-18 [facility] Thin prep Papanicolaou smear with manual screeningOrdered By: Jose Raul Pulliam on 05-28-2023 Thin prep Papanicolaou smear with manual screening 6 5-15 [facility] Basophil percentageOrdered B y: Jose Raul Pulliam on 04-30-2023 Chloride [Moles/Vol] 108 mmol/L 98-107 [facility] Glucose [Mass/Vol] 90 mg/dL 74-106 [facility] Potassium [Moles/Vol] 3.6 mmol/L 3.5-5.1 [facility] Sodium [Moles/Vol] 139 mmol/L 136-145 [facility] WBC (Bld) [#/Vol] 6.9 10*3/uL 4.4-11.0 [facility] Blood erythrocytes count (nu mber/volume)Ordered By: Jose Raul Pulliam on 04-30-2023 RBC (Bld) [#/Vol] 4.75 10*6/uL 4.2-5.4 [facility] Blood hemoglobin measurement (mass/volume)Ordered By: Jose Raul Pulliam on 04-30-2023 Hemoglobin (Bld) [Mass/Vol] 12.8 g/dL 12.0-15.0 [facility] Blood platelet mean volumeOr dered By: Jose Raul Pulliam on 04-30-2023 Platelet mean volume (Bld) [Entitic vol] 10.1 fL 6.2-12.0 [facility] Determination of erythrocyte mean corpuscular volume (MCV)Ordered By: Jose Raul Pulliam on 04-30-2023 MCV (RBC) [Entitic vol] 90.7 fL 81-99 [facility] Hematocrit Auto (Bld) [Volum e fraction]Ordered By: Jose Raul Pulliam on 04-30-2023 Hematocrit (Bld) [Volume fraction] 43.1 % 37-47 [facility] - Chemistry and C hemistry - challengeOrdered By: Jose Raul Pulliam on 04-30-2023 CO2 [Moles/Vol] 27.0 mmol/L 21.0-32.0 [facility] Urea nitrogen/Creatinine [Mass ratio] 15.1 mg/mg 10-20 [facility] - Hematology and Cell countsOrdered By: Jose Raul Pulliam on 04-30-2023 Erythrocyte distribution width (RBC) [Entitic vol] 50.4 fL 35.1-43.9 [facility] Erythrocyte distribution width (RBC) [Ratio] 15.1 % 11.6-14.6 [facility] MCH (RBC) [Entitic mass] 26.9 pg 27.0-32.0 [facility] MCHC Auto (RBC) [Mass/Vol]Or dered By: Jose Raul Pulliam on 04-30-2023 MCHC (RBC) [Mass/Vol] 29.7 g/dL 32-36 [facility] No Panel InformationOrdered By: Jose Raul Pulliam on 04-30-2023 Estimated GFR (MDRD) Amer 81 mL/min >60 [facility] Comment on above: GFR Calc Estimated GFR (MDRD) Non-Af Amer 67 mL/min >60 [facility] Comment on above: Non- GFR Calc Platelets bldOrdered By: Sma Pulliam on 04-30-2023 Platelets (Bld) [#/Vol] 349 10*3/uL 150-450 [facility] Serum or plasma calcium milagros urement (mass/volume)Ordered By: Jose Raul Pulliam on 04-30-2023 Calcium [Mass/Vol] 9.2 mg/dL 8.5-10.1 [facility] Serum or plasma creatinine m easurement (mass/volume)Ordered By: Jose Raul Pulliam on 04-30-2023 Creatinine [Mass/Vol] 0.86 mg/dL 0.55-1.02 [facility] Comment on above: The validity of the calculated GFR & GFRAA in patients over 70 years has not been determined. Clinical correlation is essential. Serum or plasma urea nitroge n measurement (mass/volume)Ordered By: Jose Raul Pulliam on 04-30-2023 Urea nitrogen [Mass/Vol] 13 mg/dL 7-18 [facility] Thin prep Papanicolaou smear with manual screeningOrdered By: Jose Raul Pulliam on 04-30-2023 Thin prep Papanicolaou smear with manual screening 4 5-15 [facility] Basophil percentageOrdered B y: Jose Raul Pulliam on 04-16-2023 Chloride [Moles/Vol] 110 mmol/L 98-107 [facility] Glucose [Mass/Vol] 98 mg/dL 74-106 [facility] Potassium [Moles/Vol] 3.9 mmol/L 3.5-5.1 [facility] Sodium [Moles/Vol] 141 mmol/L 136-145 [facility] WBC (Bld) [#/Vol] 6.0 10*3/uL 4.4-11.0 [facility] Blood erythrocytes count (nu mber/volume)Ordered By: Jose Raul Pulliam on 04-16-2023 RBC (Bld) [#/Vol] 4.38 10*6/uL 4.2-5.4 [facility] Blood hemoglobin measurement (mass/volume)Ordered By: Jose Raul Pulliam on 04-16-2023 Hemoglobin (Bld) [Mass/Vol] 11.9 g/dL 12.0-15.0 [facility] Blood platelet mean volumeOr dered By: Jose Raul Pulliam on 04-16-2023 Platelet mean volume (Bld) [Entitic vol] 9.4 fL 6.2-12.0 [facility] Determination of erythrocyte mean corpuscular volume (MCV)Ordered By: Jose Raul Pulliam on 04-16-2023 MCV (RBC) [Entitic vol] 86.1 fL 81-99 [facility] Hematocrit Auto (Bld) [Volum e fraction]Ordered By: Jose Raul Pulliam on 04-16-2023 Hematocrit (Bld) [Volume fraction] 37.7 % 37-47 [facility] - Chemistry and C hemistry - challengeOrdered By: Jose Raul Pulliam on 04-16-2023 CO2 [Moles/Vol] 26.0 mmol/L 21.0-32.0 [facility] Urea nitrogen/Creatinine [Mass ratio] 13.0 mg/mg 10-20 [facility] - Hematology and Cell countsOrdered By: Jose Raul Pulliam on 04-16-2023 Erythrocyte distribution width (RBC) [Entitic vol] 48.5 fL 35.1-43.9 [facility] Erythrocyte distribution width (RBC) [Ratio] 15.4 % 11.6-14.6 [facility] MCH (RBC) [Entitic mass] 27.2 pg 27.0-32.0 [facility] MCHC Auto (RBC) [Mass/Vol]Or dered By: Jose Raul Pulliam on 04-16-2023 MCHC (RBC) [Mass/Vol] 31.6 g/dL 32-36 [facility] No Panel InformationOrdered By: Jose Raul Pulliam on 04-16-2023 Estimated GFR (MDRD) Amer 92 mL/min >60 [facility] Comment on above: GFR Calc Estimated GFR (MDRD) Non-Af Amer 76 mL/min >60 [facility] Comment on above: Non- GFR Calc Platelets bldOrdered By: Sam Pulliam on 04-16-2023 Platelets (Bld) [#/Vol] 256 10*3/uL 150-450 [facility] Serum or plasma calcium milagros urement (mass/volume)Ordered By: Jose Raul Pulliam on 04-16-2023 Calcium [Mass/Vol] 8.7 mg/dL 8.5-10.1 [facility] Serum or plasma creatinine m easurement (mass/volume)Ordered By: Jose Raul Pulliam on 04-16-2023 Creatinine [Mass/Vol] 0.77 mg/dL 0.55-1.02 [facility] Comment on above: The validity of the calculated GFR & GFRAA in patients over 70 years has not been determined. Clinical correlation is essential. Serum or plasma urea nitroge n measurement (mass/volume)Ordered By: Jose Raul Pulliam on 04-16-2023 Urea nitrogen [Mass/Vol] 10 mg/dL 7-18 [facility] Thin prep Papanicolaou smear with manual screeningOrdered By: Jose Raul Pulliam on 04-16-2023 Thin prep Papanicolaou smear with manual screening 5 5-15 [facility] Basophil percentageOrdered B y: Jose Raul Pulliam on 04-02-2023 Chloride [Moles/Vol] 110 mmol/L 98-107 [facility] Glucose [Mass/Vol] 91 mg/dL 74-106 [facility] Potassium [Moles/Vol] 4.0 mmol/L 3.5-5.1 [facility] Sodium [Moles/Vol] 141 mmol/L 136-145 [facility] WBC (Bld) [#/Vol] 6.1 10*3/uL 4.4-11.0 [facility] Blood erythrocytes count (nu mber/volume)Ordered By: Jose Raul Pulliam on 04-02-2023 RBC (Bld) [#/Vol] 4.30 10*6/uL 4.2-5.4 [facility] Blood hemoglobin measurement (mass/volume)Ordered By: Jose Raul Pulliam on 04-02-2023 Hemoglobin (Bld) [Mass/Vol] 11.8 g/dL 12.0-15.0 [facility] Blood platelet mean volumeOr dered By: Jose Raul Pulliam on 04-02-2023 Platelet mean volume (Bld) [Entitic vol] 9.8 fL 6.2-12.0 [facility] Determination of erythrocyte mean corpuscular volume (MCV)Ordered By: Jose Raul Pulliam on 04-02-2023 MCV (RBC) [Entitic vol] 87.4 fL 81-99 [facility] Hematocrit Auto (Bld) [Volum e fraction]Ordered By: Jose Raul Pulliam on 04-02-2023 Hematocrit (Bld) [Volume fraction] 37.6 % 37-47 [facility] - Chemistry and C hemistry - challengeOrdered By: Jose Raul Pulliam on 04-02-2023 CO2 [Moles/Vol] 28.0 mmol/L 21.0-32.0 [facility] Urea nitrogen/Creatinine [Mass ratio] 16.4 mg/mg 10-20 [facility] - Hematology and Cell countsOrdered By: Jose Raul Pulliam on 04-02-2023 Erythrocyte distribution width (RBC) [Entitic vol] 49.0 fL 35.1-43.9 [facility] Erythrocyte distribution width (RBC) [Ratio] 15.2 % 11.6-14.6 [facility] MCH (RBC) [Entitic mass] 27.4 pg 27.0-32.0 [facility] MCHC Auto (RBC) [Mass/Vol]Or dered By: Jose Raul Pulliam on 04-02-2023 MCHC (RBC) [Mass/Vol] 31.4 g/dL 32-36 [facility] No Panel InformationOrdered By: Jose Raul Pulliam on 04-02-2023 Estimated GFR (MDRD) Amer 98 mL/min >60 [facility] Comment on above: GFR Calc Estimated GFR (MDRD) Non-Af Amer 81 mL/min >60 [facility] Comment on above: Non- GFR Calc Platelets bldOrdered By: Sam Pulliam on 04-02-2023 Platelets (Bld) [#/Vol] 253 10*3/uL 150-450 [facility] Serum or plasma calcium milagros urement (mass/volume)Ordered By: Jose Raul Pulliam on 04-02-2023 Calcium [Mass/Vol] 8.7 mg/dL 8.5-10.1 [facility] Serum or plasma creatinine m easurement (mass/volume)Ordered By: Jose Raul Pulliam on 04-02-2023 Creatinine [Mass/Vol] 0.73 mg/dL 0.55-1.02 [facility] Comment on above: The validity of the calculated GFR & GFRAA in patients over 70 years has not been determined. Clinical correlation is essential. Serum or plasma urea nitroge n measurement (mass/volume)Ordered By: Jose Raul Pulliam on 04-02-2023 Urea nitrogen [Mass/Vol] 12 mg/dL 7-18 [facility] Thin prep Papanicolaou smear with manual screeningOrdered By: Jose Raul Pulliam on 04-02-2023 Thin prep Papanicolaou smear with manual screening 3 5-15 [facility] Basophil percentageOrdered B y: Jose Raul Pulliam on 03-19-2023 Chloride [Moles/Vol] 109 mmol/L 98-107 [facility] Glucose [Mass/Vol] 91 mg/dL 74-106 [facility] Potassium [Moles/Vol] 4.2 mmol/L 3.5-5.1 [facility] Sodium [Moles/Vol] 140 mmol/L 136-145 [facility] WBC (Bld) [#/Vol] 5.8 10*3/uL 4.4-11.0 [facility] Blood erythrocytes count (nu mber/volume)Ordered By: Jose Raul Pulliam on 03-19-2023 RBC (Bld) [#/Vol] 4.29 10*6/uL 4.2-5.4 [facility] Blood hemoglobin measurement (mass/volume)Ordered By: Jose Raul Pulliam on 03-19-2023 Hemoglobin (Bld) [Mass/Vol] 11.6 g/dL 12.0-15.0 [facility] Blood platelet mean volumeOr dered By: Jose Raul Pulliam on 03-19-2023 Platelet mean volume (Bld) [Entitic vol] 9.9 fL 6.2-12.0 [facility] Determination of erythrocyte mean corpuscular volume (MCV)Ordered By: Jose Raul Pulliam on 03-19-2023 MCV (RBC) [Entitic vol] 87.2 fL 81-99 [facility] Hematocrit Auto (Bld) [Volum e fraction]Ordered By: Jose Raul Pulliam on 03-19-2023 Hematocrit (Bld) [Volume fraction] 37.4 % 37-47 [facility] - Chemistry and C hemistry - challengeOrdered By: Jose Raul Pulliam on 03-19-2023 CO2 [Moles/Vol] 27.0 mmol/L 21.0-32.0 [facility] Urea nitrogen/Creatinine [Mass ratio] 20.9 mg/mg 10-20 [facility] - Hematology and Cell countsOrdered By: Jose Raul Pulliam on 03-19-2023 Erythrocyte distribution width (RBC) [Entitic vol] 49.4 fL 35.1-43.9 [facility] Erythrocyte distribution width (RBC) [Ratio] 15.4 % 11.6-14.6 [facility] MCH (RBC) [Entitic mass] 27.0 pg 27.0-32.0 [facility] MCHC Auto (RBC) [Mass/Vol]Or dered By: Jose Raul Pulliam on 03-19-2023 MCHC (RBC) [Mass/Vol] 31.0 g/dL 32-36 [facility] No Panel InformationOrdered By: Jose Raul Pulliam on 03-19-2023 Estimated GFR (MDRD) Amer 93 mL/min >60 [facility] Comment on above: GFR Calc Estimated GFR (MDRD) Non-Af Amer 77 mL/min >60 [facility] Comment on above: Non- GFR Calc Platelets bldOrdered By: Sam Pulliam on 03-19-2023 Platelets (Bld) [#/Vol] 267 10*3/uL 150-450 [facility] Serum or plasma calcium milagros urement (mass/volume)Ordered By: Jose Raul Pulliam on 03-19-2023 Calcium [Mass/Vol] 8.6 mg/dL 8.5-10.1 [facility] Serum or plasma creatinine m easurement (mass/volume)Ordered By: Jose Raul Pulliam on 03-19-2023 Creatinine [Mass/Vol] 0.76 mg/dL 0.55-1.02 [facility] Comment on above: The validity of the calculated GFR & GFRAA in patients over 70 years has not been determined. Clinical correlation is essential. Serum or plasma urea nitroge n measurement (mass/volume)Ordered By: Jose Raul Pulliam on 03-19-2023 Urea nitrogen [Mass/Vol] 16 mg/dL 7-18 [facility] Thin prep Papanicolaou smear with manual screeningOrdered By: Jose Raul Pulliam on 07-10-2023 Thin prep Papanicolaou smear with manual screening 4 5-15 [facility] Basophil percentageOrdered B y: [facility] on 03-05-2023 Chloride [Moles/Vol] 111 mmol/L 98-107 [facility] Glucose [Mass/Vol] 87 mg/dL 74-106 [facility] Potassium [Moles/Vol] 4.0 mmol/L 3.5-5.1 [facility] Sodium [Moles/Vol] 140 mmol/L 136-145 [facility] WBC (Bld) [#/Vol] 5.8 10*3/uL 4.4-11.0 [facility] Blood erythrocytes count (nu mber/volume)Ordered By: [facility] on 03-05-2023 RBC (Bld) [#/Vol] 4.10 10*6/uL 4.2-5.4 [facility] Blood hemoglobin measurement (mass/volume)Ordered By: [facility] on 03-05-2023 Hemoglobin (Bld) [Mass/Vol] 11.1 g/dL 12.0-15.0 [facility] Blood platelet mean volumeOr dered By: [facility] on 03-05-2023 Platelet mean volume (Bld) [Entitic vol] 9.9 fL 6.2-12.0 [facility] Determination of erythrocyte mean corpuscular volume (MCV)Ordered By: [facility] on 03-05-2023 MCV (RBC) [Entitic vol] 87.6 fL 81-99 [facility] Hematocrit Auto (Bld) [Volum e fraction]Ordered By: [facility] on 03-05-2023 Hematocrit (Bld) [Volume fraction] 35.9 % 37-47 [facility] - Chemistry and C hemistry - challengeOrdered By: [facility] on 03-05-2023 CO2 [Moles/Vol] 25.0 mmol/L 21.0-32.0 [facility] Urea nitrogen/Creatinine [Mass ratio] 19.6 mg/mg 10-20 [facility] - Hematology and Cell countsOrdered By: [facility] on 03-05-2023 Erythrocyte distribution width (RBC) [Entitic vol] 49.8 fL 35.1-43.9 [facility] Erythrocyte distribution width (RBC) [Ratio] 15.6 % 11.6-14.6 [facility] MCH (RBC) [Entitic mass] 27.1 pg 27.0-32.0 [facility] MCHC Auto (RBC) [Mass/Vol]Or dered By: [facility] on 03-05-2023 MCHC (RBC) [Mass/Vol] 30.9 g/dL 32-36 [facility] No Panel InformationOrdered By: [facility] on 03-05-2023 Estimated GFR (MDRD) Amer 93 mL/min >60 [facility] Comment on above: GFR Calc Estimated GFR (MDRD) Non-Af Amer 77 mL/min >60 [facility] Comment on above: Non- GFR Calc Platelets bldOrdered By: [facility] on 03-05-2023 Platelets (Bld) [#/Vol] 251 10*3/uL 150-450 [facility] Serum or plasma calcium milagros urement (mass/volume)Ordered By: [facility] on 03-05-2023 Calcium [Mass/Vol] 8.6 mg/dL 8.5-10.1 [facility] Serum or plasma creatinine m easurement (mass/volume)Ordered By: [facility] on 03-05-2023 Creatinine [Mass/Vol] 0.76 mg/dL 0.55-1.02 [facility] Comment on above: The validity of the calculated GFR & GFRAA in patients over 70 years has not been determined. Clinical correlation is essential. Serum or plasma urea nitroge n measurement (mass/volume)Ordered By: [facility] on 03-05-2023 Urea nitrogen [Mass/Vol] 15 mg/dL 7-18 [facility] Thin prep Papanicolaou smear with manual screeningOrdered By: [facility] on 03-05-2023 Thin prep Papanicolaou smear with manual screening 4 5-15 [facility] Basophil percentageOrdered B y: Yahir Foster on 02-20-2023 Chloride [Moles/Vol] 112 mmol/L 98-107 [facility] Glucose [Mass/Vol] 90 mg/dL 74-106 [facility] Potassium [Moles/Vol] 4.1 mmol/L 3.5-5.1 [facility] Sodium [Moles/Vol] 142 mmol/L 136-145 [facility] WBC (Bld) [#/Vol] 6.8 10*3/uL 4.4-11.0 [facility] Blood erythrocytes count (nu mber/volume)Ordered By: Yahir Foster on 02-20-2023 RBC (Bld) [#/Vol] 4.52 10*6/uL 4.2-5.4 [facility] Blood hemoglobin measurement (mass/volume)Ordered By: Yahir Foster on 02-20-2023 Hemoglobin (Bld) [Mass/Vol] 12.3 g/dL 12.0-15.0 [facility] Blood platelet mean volumeOr dered By: Yahir Foster on 02-20-2023 Platelet mean volume (Bld) [Entitic vol] 9.8 fL 6.2-12.0 [facility] Determination of erythrocyte mean corpuscular volume (MCV)Ordered By: Yahir Foster on 02-20-2023 MCV (RBC) [Entitic vol] 88.7 fL 81-99 [facility] Hematocrit Auto (Bld) [Volum e fraction]Ordered By: Yahir Foster on 02-20-2023 Hematocrit (Bld) [Volume fraction] 40.1 % 37-47 [facility] - Chemistry and C hemistry - challengeOrdered By: Yahir Foster on 02-20-2023 CO2 [Moles/Vol] 24.0 mmol/L 21.0-32.0 [facility] Urea nitrogen/Creatinine [Mass ratio] 15.9 mg/mg 10-20 [facility] - Hematology and Cell countsOrdered By: Yahir Foster on 02-20-2023 Erythrocyte distribution width (RBC) [Entitic vol] 51.5 fL 35.1-43.9 [facility] Erythrocyte distribution width (RBC) [Ratio] 15.7 % 11.6-14.6 [facility] MCH (RBC) [Entitic mass] 27.2 pg 27.0-32.0 [facility] MCHC Auto (RBC) [Mass/Vol]Or dered By: Yahir Foster on 02-20-2023 MCHC (RBC) [Mass/Vol] 30.7 g/dL 32-36 [facility] No Panel InformationOrdered By: Yahir Foster on 02-20-2023 Estimated GFR (MDRD) Amer 86 mL/min >60 [facility] Comment on above: GFR Calc Estimated GFR (MDRD) Non-Af Amer 71 mL/min >60 [facility] Comment on above: Non- GFR Calc Platelets bldOrdered By: Jos Foster on 02-20-2023 Platelets (Bld) [#/Vol] 296 10*3/uL 150-450 [facility] Serum or plasma calcium milagros urement (mass/volume)Ordered By: Yahir Foster on 02-20-2023 Calcium [Mass/Vol] 9.0 mg/dL 8.5-10.1 [facility] Serum or plasma creatinine m easurement (mass/volume)Ordered By: Yahir Foster on 02-20-2023 Creatinine [Mass/Vol] 0.82 mg/dL 0.55-1.02 [facility] Comment on above: The validity of the calculated GFR & GFRAA in patients over 70 years has not been determined. Clinical correlation is essential. Serum or plasma urea nitroge n measurement (mass/volume)Ordered By: Yahir Foster on 02-20-2023 Urea nitrogen [Mass/Vol] 13 mg/dL 7-18 [facility] Thin prep Papanicolaou smear with manual screeningOrdered By: Yahir Foster on 02-20-2023 Thin prep Papanicolaou smear with manual screening 6 5-15 [facility] Basophil percentageOrdered B y: Jose Raul Pulliam on 02-06-2023 Chloride [Moles/Vol] 110 mmol/L 98-107 [facility] Glucose [Mass/Vol] 94 mg/dL 74-106 [facility] Potassium [Moles/Vol] 4.5 mmol/L 3.5-5.1 [facility] Sodium [Moles/Vol] 143 mmol/L 136-145 [facility] WBC (Bld) [#/Vol] 6.4 10*3/uL 4.4-11.0 [facility] Blood erythrocytes count (nu mber/volume)Ordered By: Jose Raul Pulliam on 02-06-2023 RBC (Bld) [#/Vol] 4.52 10*6/uL 4.2-5.4 [facility] Blood hemoglobin measurement (mass/volume)Ordered By: Jose Raul Pulliam on 02-06-2023 Hemoglobin (Bld) [Mass/Vol] 12.3 g/dL 12.0-15.0 [facility] Blood platelet mean volumeOr dered By: Jose Raul Pulliam on 02-06-2023 Platelet mean volume (Bld) [Entitic vol] 9.6 fL 6.2-12.0 [facility] Determination of erythrocyte mean corpuscular volume (MCV)Ordered By: Jose Raul Pulliam on 02-06-2023 MCV (RBC) [Entitic vol] 88.9 fL 81-99 [facility] Hematocrit Auto (Bld) [Volum e fraction]Ordered By: Jose Raul Pulliam on 02-06-2023 Hematocrit (Bld) [Volume fraction] 40.2 % 37-47 [facility] - Chemistry and C hemistry - challengeOrdered By: Jose Raul Pulliam on 02-06-2023 CO2 [Moles/Vol] 25.0 mmol/L 21.0-32.0 [facility] Urea nitrogen/Creatinine [Mass ratio] 19.4 mg/mg 10-20 [facility] - Hematology and Cell countsOrdered By: Jose Raul Pulliam on 02-06-2023 Erythrocyte distribution width (RBC) [Entitic vol] 50.7 fL 35.1-43.9 [facility] Erythrocyte distribution width (RBC) [Ratio] 15.6 % 11.6-14.6 [facility] MCH (RBC) [Entitic mass] 27.2 pg 27.0-32.0 [facility] MCHC Auto (RBC) [Mass/Vol]Or dered By: Jose Raul Pulliam on 02-06-2023 MCHC (RBC) [Mass/Vol] 30.6 g/dL 32-36 [facility] No Panel InformationOrdered By: Jose Raul Pulliam on 02-06-2023 Estimated GFR (MDRD) Amer 85 mL/min >60 [facility] Comment on above: GFR Calc Estimated GFR (MDRD) Non-Af Amer 70 mL/min >60 [facility] Comment on above: Non- GFR Calc Platelets bldOrdered By: Sam minal Heraclio on 02-06-2023 Platelets (Bld) [#/Vol] 290 10*3/uL 150-450 [facility] Serum or plasma calcium milagros urement (mass/volume)Ordered By: Jose Raul Pulliam on 02-06-2023 Calcium [Mass/Vol] 9.2 mg/dL 8.5-10.1 [facility] Serum or plasma creatinine m easurement (mass/volume)Ordered By: Jose Raul Pulliam on 02-06-2023 Creatinine [Mass/Vol] 0.82 mg/dL 0.55-1.02 [facility] Comment on above: The validity of the calculated GFR & GFRAA in patients over 70 years has not been determined. Clinical correlation is essential. Serum or plasma urea nitroge n measurement (mass/volume)Ordered By: Jose Raul Pulliam on 02-06-2023 Urea nitrogen [Mass/Vol] 16 mg/dL 7-18 [facility] Thin prep Papanicolaou smear with manual screeningOrdered By: Jose Raul Pulliam on 02-06-2023 Thin prep Papanicolaou smear with manual screening 8 5-15 [facility] Absolute lymphocyte countOrd ered By: Krissy Alex on 01-29-2023 Lymphocytes Auto (Unsp spec) [#/Vol] 1.64 10*3/uL 0.83-4.51 [facility] Basophil percentageOrdered B y: Krissy Alex on 01-29-2023 Basophils/100 WBC (Bld) 0.5 % 0-1 [facility] Bilirubin [Mass/Vol] 0.30 mg/dL 0.20-1.00 [facility] Comment on above: For patients on eltr ombopag therapy, use of [employer] [place] TBIL is not recommended. Chloride [Moles/Vol] 109 mmol/L 98-107 [facility] Eosinophils/100 WBC (Bld) 3.2 % 0-5 [facility] Glucose [Mass/Vol] 86 mg/dL 74-106 [facility] Neutrophils (Bld) [#/Vol] 3.5 10*3/uL 2.0-7.7 [facility] Neutrophils/100 WBC (Bld) 59.0 % 47-70 [facility] Potassium [Moles/Vol] 4.1 mmol/L 3.5-5.1 [facility] Protein [Mass/Vol] 6.4 g/dL 6.4-8.2 [facility] Sodium [Moles/Vol] 143 mmol/L 136-145 [facility] WBC (Bld) [#/Vol] 6.0 10*3/uL 4.4-11.0 [facility] Blood erythrocytes count (nu mber/volume)Ordered By: Krissy Alex on 01-29-2023 RBC (Bld) [#/Vol] 4.07 10*6/uL 4.2-5.4 [facility] Blood hemoglobin measurement (mass/volume)Ordered By: Krissy Alex on 01-29-2023 Hemoglobin (Bld) [Mass/Vol] 11.2 g/dL 12.0-15.0 [facility] Blood lymphocytes/100 leukoc ytesOrdered By: Krissy Alex on 01-29-2023 Lymphocytes/100 WBC (Bld) 27.4 % 19-41 [facility] Blood monocytes/100 leukocyt esOrdered By: Krissy Aelx on 01-29-2023 Monocytes/100 WBC (Bld) 9.2 % 0-10 [facility] Blood platelet mean volumeOr dered By: Krissy Alex on 01-29-2023 Platelet mean volume (Bld) [Entitic vol] 10.1 fL 6.2-12.0 [facility] Determination of erythrocyte mean corpuscular volume (MCV)Ordered By: Krissy Alxe on 01-29-2023 MCV (RBC) [Entitic vol] 88.0 fL 81-99 [facility] Hematocrit Auto (Bld) [Volum e fraction]Ordered By: Krissy Alex on 01-29-2023 Hematocrit (Bld) [Volume fraction] 35.8 % 37-47 [facility] - Chemistry and C hemistry - challengeOrdered By: Krissy Alex on 01-29-2023 ALP [Catalytic activity/Vol] 78 U/L 45-117 [facility] ALT [Catalytic activity/Vol] 15 U/L 13-56 [facility] CO2 [Moles/Vol] 27.0 mmol/L 21.0-32.0 [facility] Globulin (S) [Mass/Vol] 3.5 g/dL 2.2-4.2 [facility] Urea nitrogen/Creatinine [Mass ratio] 17.4 mg/mg 10-20 [facility] - Hematology and Cell countsOrdered By: Krissy Alex on 01-29-2023 Erythrocyte distribution width (RBC) [Entitic vol] 48.9 fL 35.1-43.9 [facility] Erythrocyte distribution width (RBC) [Ratio] 15.2 % 11.6-14.6 [facility] Immature granulocytes/100 WBC (Bld) 0.700 % 0.0-0.9 [facility] Comment on above: IG% - Immature Granu locytes (promyelocytes, myelocytes and metamyelocytes) > 1% indicates that a LEFT SHIFT is Present. MCH (RBC) [Entitic mass] 27.5 pg 27.0-32.0 [facility] Nucleated RBC/100 WBC (Bld) [Ratio] 0 % 0-5 [facility] MCHC Auto (RBC) [Mass/Vol]Or dered By: Krissy Alex on 01-29-2023 MCHC (RBC) [Mass/Vol] 31.3 g/dL 32-36 [facility] No Panel InformationOrdered By: Krissy Alex on 01-29-2023 Estimated GFR (MDRD) Amer 95 mL/min >60 [facility] Comment on above: GFR Calc Estimated GFR (MDRD) Non-Af Amer 79 mL/min >60 [facility] Comment on above: Non- GFR Calc Platelets bldOrdered By: Murray Alex on 01-29-2023 Platelets (Bld) [#/Vol] 261 10*3/uL 150-450 [facility] Serum or plasma albumin milagros urement (mass/volume)Ordered By: Krissy Alex on 01-29-2023 Albumin [Mass/Vol] 2.9 g/dL 3.2-5.0 [facility] Serum or plasma albumin/glob ulin mass ratioOrdered By: Krissy Alex on 01-29-2023 Albumin/Globulin [Mass ratio] 0.8 {ratio} 0.9-2.4 [facility] Serum or plasma calcium milagros urement (mass/volume)Ordered By: Krissy Alex on 01-29-2023 Calcium [Mass/Vol] 8.8 mg/dL 8.5-10.1 [facility] Serum or plasma creatinine m easurement (mass/volume)Ordered By: Krissy Alex on 01-29-2023 Creatinine [Mass/Vol] 0.75 mg/dL 0.55-1.02 [facility] Comment on above: The validity of the calculated GFR & GFRAA in patients over 70 years has not been determined. Clinical correlation is essential. Serum or plasma urea nitroge n measurement (mass/volume)Ordered By: Krissy Alex on 01-29-2023 Urea nitrogen [Mass/Vol] 13 mg/dL 7-18 [facility] Thin prep Papanicolaou smear with manual screeningOrdered By: Krissy Alex on 01-29-2023 Thin prep Papanicolaou smear with manual screening 13 U/L 15- [facility] Thin prep Papanicolaou smear with manual screening 7 5-15 [facility] Basophil percentageOrdered B y: Jose Raul Pulliam on 01-22-2023 Chloride [Moles/Vol] 110 mmol/L 98-107 [facility] Glucose [Mass/Vol] 93 mg/dL 74-106 [facility] Potassium [Moles/Vol] 4.3 mmol/L 3.5-5.1 [facility] Sodium [Moles/Vol] 144 mmol/L 136-145 [facility] WBC (Bld) [#/Vol] 6.4 10*3/uL 4.4-11.0 [facility] Blood erythrocytes count (nu mber/volume)Ordered By: Jose Raul Pulliam on 01-22-2023 RBC (Bld) [#/Vol] 4.17 10*6/uL 4.2-5.4 [facility] Blood hemoglobin measurement (mass/volume)Ordered By: Jose Raul Pulliam on 01-22-2023 Hemoglobin (Bld) [Mass/Vol] 11.4 g/dL 12.0-15.0 [facility] Blood platelet mean volumeOr dered By: Jose Raul Pulliam on 01-22-2023 Platelet mean volume (Bld) [Entitic vol] 10.0 fL 6.2-12.0 [facility] Determination of erythrocyte mean corpuscular volume (MCV)Ordered By: Jose Raul Pulliam on 01-22-2023 MCV (RBC) [Entitic vol] 89.4 fL 81-99 [facility] Hematocrit Auto (Bld) [Volum e fraction]Ordered By: Jose Raul Pulliam on 01-22-2023 Hematocrit (Bld) [Volume fraction] 37.3 % 37-47 [facility] - Chemistry and C hemistry - challengeOrdered By: Jose Raul Pulliam on 01-22-2023 CO2 [Moles/Vol] 27.0 mmol/L 21.0-32.0 [facility] Urea nitrogen/Creatinine [Mass ratio] 18.2 mg/mg 10-20 [facility] - Hematology and Cell countsOrdered By: Jose Raul Pulliam on 01-22-2023 Erythrocyte distribution width (RBC) [Entitic vol] 48.8 fL 35.1-43.9 [facility] Erythrocyte distribution width (RBC) [Ratio] 15.0 % 11.6-14.6 [facility] MCH (RBC) [Entitic mass] 27.3 pg 27.0-32.0 [facility] MCHC Auto (RBC) [Mass/Vol]Or dered By: Jose Raul Pulliam on 01-22-2023 MCHC (RBC) [Mass/Vol] 30.6 g/dL 32-36 [facility] No Panel InformationOrdered By: Jose Raul Pulliam on 01-22-2023 Estimated GFR (MDRD) Amer 85 mL/min >60 [facility] Comment on above: GFR Calc Estimated GFR (MDRD) Non-Af Amer 70 mL/min >60 [facility] Comment on above: Non- GFR Calc Platelets bldOrdered By: Sam Pulliam on 01-22-2023 Platelets (Bld) [#/Vol] 269 10*3/uL 150-450 [facility] Serum or plasma calcium milagros urement (mass/volume)Ordered By: Jose Raul Pulliam on 01-22-2023 Calcium [Mass/Vol] 8.6 mg/dL 8.5-10.1 [facility] Serum or plasma creatinine m easurement (mass/volume)Ordered By: Jose Raul Pulliam on 01-22-2023 Creatinine [Mass/Vol] 0.82 mg/dL 0.55-1.02 [facility] Comment on above: The validity of the calculated GFR & GFRAA in patients over 70 years has not been determined. Clinical correlation is essential. Serum or plasma urea nitroge n measurement (mass/volume)Ordered By: Jose Raul Pulliam on 01-22-2023 Urea nitrogen [Mass/Vol] 15 mg/dL 7-18 [facility] Thin prep Papanicolaou smear with manual screeningOrdered By: [facility] 01-[facility]23 Thin prep Papanicolaou smear with manual screening 7 5-15 [facility] Basophil percentageOrdered B y: Yahir Foster on 01-08-2023 Chloride [Moles/Vol] 110 mmol/L 98-107 [facility] Glucose [Mass/Vol] 99 mg/dL 74-106 [facility] Potassium [Moles/Vol] 3.8 mmol/L 3.5-5.1 [facility] Sodium [Moles/Vol] 140 mmol/L 136-145 [facility] WBC (Bld) [#/Vol] 6.1 10*3/uL 4.4-11.0 [facility] Blood erythrocytes count (nu mber/volume)Ordered By: Yahir Foster on 01-08-2023 RBC (Bld) [#/Vol] 4.13 10*6/uL 4.2-5.4 [facility] Blood hemoglobin measurement (mass/volume)Ordered By: Yahir Foster on 01-08-2023 Hemoglobin (Bld) [Mass/Vol] 11.3 g/dL 12.0-15.0 [facility] Blood platelet mean volumeOr dered By: Yahir Foster on 01-08-2023 Platelet mean volume (Bld) [Entitic vol] 9.9 fL 6.2-12.0 [facility] Determination of erythrocyte mean corpuscular volume (MCV)Ordered By: Yahir Foster on 01-08-2023 MCV (RBC) [Entitic vol] 87.4 fL 81-99 [facility] Hematocrit Auto (Bld) [Volum e fraction]Ordered By: Yahir Foster on 01-08-2023 Hematocrit (Bld) [Volume fraction] 36.1 % 37-47 [facility] - Chemistry and C hemistry - challengeOrdered By: Yahir Foster on 01-08-2023 CO2 [Moles/Vol] 23.0 mmol/L 21.0-32.0 [facility] Urea nitrogen/Creatinine [Mass ratio] 20.6 mg/mg 10-20 [facility] - Hematology and Cell countsOrdered By: Yahir Foster on 01-08-2023 Erythrocyte distribution width (RBC) [Entitic vol] 48.4 fL 35.1-43.9 [facility] Erythrocyte distribution width (RBC) [Ratio] 15.0 % 11.6-14.6 [facility] MCH (RBC) [Entitic mass] 27.4 pg 27.0-32.0 [facility] MCHC Auto (RBC) [Mass/Vol]Or dered By: Yahir Foster on 01-08-2023 MCHC (RBC) [Mass/Vol] 31.3 g/dL 32-36 [facility] No Panel InformationOrdered By: Yahir Foster on 01-08-2023 Estimated GFR (MDRD) Amer 75 mL/min >60 [facility] Comment on above: GFR Calc Estimated GFR (MDRD) Non-Af Amer 62 mL/min >60 [facility] Comment on above: Non- GFR Calc Platelets bldOrdered By: Jos Foster on 01-08-2023 Platelets (Bld) [#/Vol] 247 10*3/uL 150-450 [facility] Serum or plasma calcium milagros urement (mass/volume)Ordered By: Yahir Foster on 01-08-2023 Calcium [Mass/Vol] 9.0 mg/dL 8.5-10.1 [facility] Serum or plasma creatinine m easurement (mass/volume)Ordered By: Yahir Foster on 01-08-2023 Creatinine [Mass/Vol] 0.92 mg/dL 0.55-1.02 [facility] Comment on above: The validity of the calculated GFR & GFRAA in patients over 70 years has not been determined. Clinical correlation is essential. Serum or plasma urea nitroge n measurement (mass/volume)Ordered By: Yahir Foster on 01-08-2023 Urea nitrogen [Mass/Vol] 19 mg/dL 7-18 [facility] Thin prep Papanicolaou smear with manual screeningOrdered By: Yhair Foster on 01-08-2023 Thin prep Papanicolaou smear with manual screening 7 5-15 [facility] Culture, urineOrdered By: Dr Jeronimo Dumont on 01-02-2023 Bacteria identified Cx Nom (U) Positive [facility] Absolute lymphocyte countOrd ered By: Dr. Dumont on 12-31-2022 Lymphocytes Auto (Unsp spec) [#/Vol] 1.68 10*3/uL 0.83-4.51 [facility] Basophil percentageOrdered B y: Dr. Dumont on 12-31-2022 Basophil percentage 5-10 SEEN /hpf 0-5 [facility] Basophils/100 WBC (Bld) 0.4 % 0-1 [facility] Bilirubin [Mass/Vol] 0.20 mg/dL 0.20-1.00 [facility] Comment on above: For patients on eltr ombopag therapy, use of [employer] [place] TBIL is not recommended. Chloride [Moles/Vol] 112 mmol/L 98-107 [facility] Eosinophils/100 WBC (Bld) 2.3 % 0-5 [facility] Glucose [Mass/Vol] 99 mg/dL 74-106 [facility] Neutrophils (Bld) [#/Vol] 5.1 10*3/uL 2.0-7.7 [facility] Neutrophils/100 WBC (Bld) 67.4 % 47-70 [facility] Potassium [Moles/Vol] 4.2 mmol/L 3.5-5.1 [facility] Protein [Mass/Vol] 7.2 g/dL 6.4-8.2 [facility] Sodium [Moles/Vol] 139 mmol/L 136-145 [facility] WBC (Bld) [#/Vol] 7.5 10*3/uL 4.4-11.0 [facility] Bilirubin Test strip Ql (U)O rdered By: Dr. Dumont on 12-31-2022 Bilirubin Ql (U) Negative Negative [facility] Blood erythrocytes count (nu mber/volume)Ordered By: Dr. Dumont on 12-31-2022 RBC (Bld) [#/Vol] 4.24 10*6/uL 4.2-5.4 [facility] Blood hemoglobin measurement (mass/volume)Ordered By: Dr. Dumont on 12-31-2022 Hemoglobin (Bld) [Mass/Vol] 11.9 g/dL 12.0-15.0 [facility] Blood lymphocytes/100 leukoc ytesOrdered By: Dr. Dumont on 12-31-2022 Lymphocytes/100 WBC (Bld) 22.4 % 19-41 [facility] Blood monocytes/100 leukocyt esOrdered By: Dr. Dumont on 12-31-2022 Monocytes/100 WBC (Bld) 7.2 % 0-10 [facility] Blood platelet mean volumeOr dered By: Dr. Dumont on 12-31-2022 Platelet mean volume (Bld) [Entitic vol] 9.4 fL 6.2-12.0 [facility] Culture, urineOrdered By: Monico Dumont on 12-31-2022 Bacteria identified Cx Nom (U) Positive [facility] Determination of erythrocyte mean corpuscular volume (MCV)Ordered By: Dr. Dumont on 12-31-2022 MCV (RBC) [Entitic vol] 87.5 fL 81-99 [facility] Hematocrit Auto (Bld) [Volum e fraction]Ordered By: Dr. Dumont on 12-31-2022 Hematocrit (Bld) [Volume fraction] 37.1 % 37-47 [facility] Ketones Test strip Ql (U)Ord ered By: Dr. Dumont on 12-31-2022 Ketones Ql (U) Negative Negative [facility] - Chemistry and C hemistry - challengeOrdered By: Dr. Dumont on 12-31-2022 ALP [Catalytic activity/Vol] 83 U/L 45-117 [facility] ALT [Catalytic activity/Vol] 17 U/L 13-56 [facility] CO2 [Moles/Vol] 24.0 mmol/L 21.0-32.0 [facility] Globulin (S) [Mass/Vol] 3.8 g/dL 2.2-4.2 [facility] Urea nitrogen/Creatinine [Mass ratio] 17.5 mg/mg 10-20 [facility] - Drug toxicology Ordered By: Dr. Dumont on 12-31-2022 Amphetamines Ql (U) Negative <1000 ng/mL [facility] Benzodiazepines Ql (U) Negative < 200 ng/mL [facility] Cannabinoids Screen Ql (U) Negative < 50 ng/mL [facility] Cocaine Ql (U) Negative < 300 ng/mL [facility] Opiates Ql (U) Negative < 300 ng/mL [facility] - Hematology and Cell countsOrdered By: Dr. Dumont on 12-31-2022 Erythrocyte distribution width (RBC) [Entitic vol] 48.5 fL 35.1-43.9 [facility] Erythrocyte distribution width (RBC) [Ratio] 15.1 % 11.6-14.6 [facility] Immature granulocytes/100 WBC (Bld) 0.300 % 0.0-0.9 [facility] Comment on above: IG% - Immature Granu locytes (promyelocytes, myelocytes and metamyelocytes) > 1% indicates that a LEFT SHIFT is Present. MCH (RBC) [Entitic mass] 28.1 pg 27.0-32.0 [facility] Nucleated RBC/100 WBC (Bld) [Ratio] 0 % 0-5 [facility] MCHC Auto (RBC) [Mass/Vol]Or dered By: Dr. Dumont on 12-31-2022 MCHC (RBC) [Mass/Vol] 32.1 g/dL 32-36 [facility] Mucus LM Ql (Urine sed)Order ed By: Dr. Dumont on 12-31-2022 Mucus Ql (Urine sed) 0 SEEN /hpf [facility] Nitrite Test strip Ql (U)Ord ered By: Dr. Dumont on 12-31-2022 Nitrite Ql (U) Negative Negative [facility] No Panel InformationOrdered By: Dr. Dumont on 12-31-2022 MDMA (Ecstasy) Screen Negative < 500 ng/mL [facility] Urine Barbiturates Screen Negative < 200 ng/mL [facility] Urine Drug Screen Comment [facility] Comment on above: CONFIRMATORY TESTING FOR ALL [...] Methadone Screen Negative < 300 ng/mL [facility] Estimated Creatinine Clearance Calc 39.08 ml/min [facility] Estimated GFR (MDRD) Amer 58 mL/min >60 [facility] Comment on above: GFR Calc Estimated GFR (MDRD) Non-Af Amer 48 mL/min >60 [facility] Comment on above: Non- GFR Calc Ethyl [...] 12-31-2022 Platelets (Bld) [#/Vol] 245 10*3/uL 150-450 [facility] Protein Test strip Ql (U)Ord ered By: Dr. Dumont on 12-31-2022 Protein Ql (U) Negative Negative [facility] Serum or plasma albumin milagros urement (mass/volume)Ordered By: Dr. Dumont on 12-31-2022 Albumin [Mass/Vol] 3.4 g/dL 3.2-5.0 [facility] Serum or plasma albumin/glob ulin mass ratioOrdered By: Dr. Dumont on 12-31-2022 Albumin/Globulin [Mass ratio] 0.9 {ratio} 0.9-2.4 [facility] Serum or plasma calcium milagros urement (mass/volume)Ordered By: Dr. Dumont on 12-31-2022 Calcium [Mass/Vol] 9.2 mg/dL 8.5-10.1 [facility] Serum or plasma creatinine m easurement (mass/volume)Ordered By: Dr. Dumont on 12-31-2022 Creatinine [Mass/Vol] 1.14 mg/dL 0.55-1.02 [facility] Comment on above: The validity of the calculated GFR & GFRAA in patients over 70 years has not been determined. Clinical correlation is essential. Serum or plasma urea nitroge n measurement (mass/volume)Ordered By: Dr. Dumont on 12-31-2022 Urea nitrogen [Mass/Vol] 20 mg/dL 7-18 [facility] Squamous epithelial cells de tection in urine sediment by light microscopyOrdered By: Dr. Dumont on 12-31-2022 Epithelial cells.squamous LM Ql (Urine sed) 0-5 SEEN /hpf 5-10 [facility] Thin prep Papanicolaou smear with manual screeningOrdered By: Dr. Dumont on 12-31-2022 Thin prep Papanicolaou smear with manual screening 11 U/L 15-37 [facility] Thin prep Papanicolaou smear with manual screening 3 5-15 [facility] Urine blood detectionOrdered By: Dr. Dumont on 12-31-2022 RBC Ql (U) 10 /ul Negative [facility] RBC Ql (U) 0-5 SEEN /hpf 0-5 [facility] Urine clarityOrdered By: Dr. Dumont on 12-31-2022 Clarity (U) Clear Clear [facility] Urine color determinationOrd ered By: Dr. Dumont on 12-31-2022 Color (U) Yellow Yellow [facility] Urine glucose detectionOrder ed By: Dr. Dumont on 12-31-2022 Glucose Ql (U) Normal mg/dl Normal [facility] Urine leukocyte esterase det ection by dipstickOrdered By: Dr. Dumont on 12-31-2022 Leukocyte esterase Test strip Ql (U) 100 /ul Negative [facility] Urine pHOrdered By: Dr. Sachi kaur on 12-31-2022 pH (U) 5.0 [pH] 5.0 - 8.0 [facility] Urine phencyclidine (PCP) de tectionOrdered By: Dr. Dumont on 12-31-2022 Phencyclidine Ql (U) Negative < 25 ng/mL [facility] Urine sediment bacteria coun t by microscopy (number/high power field)Ordered By: Dr. Dumont on 12-31-2022 Bacteria LM.HPF (Urine sed) [#/Area] 1 /[HPF] None Seen [facility] Urine specific gravity measu rementOrdered By: Dr. Dumont on 12-31-2022 Specific gravity (U) [Rel density] 1.025 1.002-1.030 [facility] Urobilinogen Auto test strip Ql (U)Ordered By: Dr. Dumont on 12-31-2022 Urobilinogen Ql (U) Normal mg/dl Normal [facility] Basophil percentageOrdered B y: Jose Raul Pulliam on 12-25-2022 Chloride [Moles/Vol] 111 mmol/L 98-107 [facility] Glucose [Mass/Vol] 86 mg/dL 74-106 [facility] Potassium [Moles/Vol] 4.1 mmol/L 3.5-5.1 [facility] Sodium [Moles/Vol] 141 mmol/L 136-145 [facility] WBC (Bld) [#/Vol] 6.0 10*3/uL 4.4-11.0 [facility] Blood erythrocytes count (nu mber/volume)Ordered By: Jose Raul Pulliam on 12-25-2022 RBC (Bld) [#/Vol] 4.13 10*6/uL 4.2-5.4 [facility] Blood hemoglobin measurement (mass/volume)Ordered By: Jose Raul Pulliam on 12-25-2022 Hemoglobin (Bld) [Mass/Vol] 11.4 g/dL 12.0-15.0 [facility] Blood platelet mean volumeOr dered By: Jose Raul Pulliam on 12-25-2022 Platelet mean volume (Bld) [Entitic vol] 10.2 fL 6.2-12.0 [facility] Determination of erythrocyte mean corpuscular volume (MCV)Ordered By: Jose Raul Pulliam on 12-25-2022 MCV (RBC) [Entitic vol] 88.1 fL 81-99 [facility] Hematocrit Auto (Bld) [Volum e fraction]Ordered By: Jose Raul Pulliam on 12-25-2022 Hematocrit (Bld) [Volume fraction] 36.4 % 37-47 [facility] - Chemistry and C hemistry - challengeOrdered By: Jose Raul Pulliam on 12-25-2022 CO2 [Moles/Vol] 25.0 mmol/L 21.0-32.0 [facility] Urea nitrogen/Creatinine [Mass ratio] 18.3 mg/mg 10-20 [facility] - Hematology and Cell countsOrdered By: Jose Raul Pulliam on 12-25-2022 Erythrocyte distribution width (RBC) [Entitic vol] 48.1 fL 35.1-43.9 [facility] Erythrocyte distribution width (RBC) [Ratio] 14.8 % 11.6-14.6 [facility] MCH (RBC) [Entitic mass] 27.6 pg 27.0-32.0 [facility] MCHC Auto (RBC) [Mass/Vol]Or dered By: Jose Raul Pulliam on 12-25-2022 MCHC (RBC) [Mass/Vol] 31.3 g/dL 32-36 [facility] No Panel InformationOrdered By: Jose Raul Pulliam on 12-25-2022 Estimated GFR (MDRD) Amer 92 mL/min >60 [facility] Comment on above: GFR Calc Estimated GFR (MDRD) Non-Af Amer 76 mL/min >60 [facility] Comment on above: Non- GFR Calc Platelets bldOrdered By: Sam Pulliam on 12-25-2022 Platelets (Bld) [#/Vol] 219 10*3/uL 150-450 [facility] Serum or plasma calcium milagros urement (mass/volume)Ordered By: Jose Raul Pulliam on 12-25-2022 Calcium [Mass/Vol] 8.6 mg/dL 8.5-10.1 [facility] Serum or plasma creatinine m easurement (mass/volume)Ordered By: Jose Raul Pulliam on 12-25-2022 Creatinine [Mass/Vol] 0.77 mg/dL 0.55-1.02 [facility] Comment on above: The validity of the calculated GFR & GFRAA in patients over 70 years has not been determined. Clinical correlation is essential. Serum or plasma urea nitroge n measurement (mass/volume)Ordered By: Jose Raul Pulliam on 12-25-2022 Urea nitrogen [Mass/Vol] 14 mg/dL 7-18 [facility] Thin prep Papanicolaou smear with manual screeningOrdered By: Jose Raul Pulliam on 12-25-2022 Thin prep Papanicolaou smear with manual screening 5 5-15 [facility] Basophil percentageOrdered B y: Yahir Foster on 12-11-2022 Chloride [Moles/Vol] 109 mmol/L 98-107 [facility] Glucose [Mass/Vol] 113 mg/dL 74-106 [facility] Comment on above: Fasting Glucose resu lt from 100 to 125 mg/dL suggests IMPAIRED HOMEOSTASIS per A.D.A. criteria. Potassium [Moles/Vol] 3.7 mmol/L 3.5-5.1 [facility] Sodium [Moles/Vol] 140 mmol/L 136-145 [facility] WBC (Bld) [#/Vol] 6.6 10*3/uL 4.4-11.0 [facility] Blood erythrocytes count (nu mber/volume)Ordered By: Yahir Foster on 12-11-2022 RBC (Bld) [#/Vol] 4.63 10*6/uL 4.2-5.4 [facility] Blood hemoglobin measurement (mass/volume)Ordered By: Yahir Foster on 12-11-2022 Hemoglobin (Bld) [Mass/Vol] 12.7 g/dL 12.0-15.0 [facility] Blood platelet mean volumeOr dered By: Yahir Foster on 12-11-2022 Platelet mean volume (Bld) [Entitic vol] 10.0 fL 6.2-12.0 [facility] Determination of erythrocyte mean corpuscular volume (MCV)Ordered By: Yahir Foster on 12-11-2022 MCV (RBC) [Entitic vol] 89.4 fL 81-99 [facility] Hematocrit Auto (Bld) [Volum e fraction]Ordered By: Yahir Foster on 12-11-2022 Hematocrit (Bld) [Volume fraction] 41.4 % 37-47 [facility] - Chemistry and C hemistry - challengeOrdered By: Yahir Foster on 12-11-2022 CO2 [Moles/Vol] 26.0 mmol/L 21.0-32.0 [facility] Urea nitrogen/Creatinine [Mass ratio] 16.4 mg/mg 10-20 [facility] - Hematology and Cell countsOrdered By: Yahir Foster on 12-11-2022 Erythrocyte distribution width (RBC) [Entitic vol] 48.6 fL 35.1-43.9 [facility] Erythrocyte distribution width (RBC) [Ratio] 14.8 % 11.6-14.6 [facility] MCH (RBC) [Entitic mass] 27.4 pg 27.0-32.0 [facility] MCHC Auto (RBC) [Mass/Vol]Or dered By: Yahir Foster on 12-11-2022 MCHC (RBC) [Mass/Vol] 30.7 g/dL 32-36 [facility] No Panel InformationOrdered By: Yahir Foster on 12-11-2022 Estimated GFR (MDRD) Amer 75 mL/min >60 [facility] Comment on above: GFR Calc Estimated GFR (MDRD) Non-Af Amer 62 mL/min >60 [facility] Comment on above: Non- GFR Calc Platelets bldOrdered By: Jos Foster on 12-11-2022 Platelets (Bld) [#/Vol] 297 10*3/uL 150-450 [facility] Serum or plasma calcium milagros urement (mass/volume)Ordered By: Yahir Foster on 12-11-2022 Calcium [Mass/Vol] 9.2 mg/dL 8.5-10.1 [facility] Serum or plasma creatinine m easurement (mass/volume)Ordered By: Yahir Foster on 12-11-2022 Creatinine [Mass/Vol] 0.92 mg/dL 0.55-1.02 [facility] Comment on above: The validity of the calculated GFR & GFRAA in patients over 70 years has not been determined. Clinical correlation is essential. Serum or plasma urea nitroge n measurement (mass/volume)Ordered By: Yahir Foster on 12-11-2022 Urea nitrogen [Mass/Vol] 15 mg/dL 7-18 [facility] Thin prep Papanicolaou smear with manual screeningOrdered By: Yahir Foster on 12-11-2022 Thin prep Papanicolaou smear with manual screening 5 5-15 [facility] Basophil percentageOrdered B y: Jose Raul Pulliam on 11-27-2022 Chloride [Moles/Vol] 109 mmol/L 98-107 [facility] Glucose [Mass/Vol] 86 mg/dL 74-106 [facility] Potassium [Moles/Vol] 4.3 mmol/L 3.5-5.1 [facility] Sodium [Moles/Vol] 141 mmol/L 136-145 [facility] WBC (Bld) [#/Vol] 6.1 10*3/uL 4.4-11.0 [facility] Blood erythrocytes count (nu mber/volume)Ordered By: Jose Raul Pulliam on 11-27-2022 RBC (Bld) [#/Vol] 4.10 10*6/uL 4.2-5.4 [facility] Blood hemoglobin measurement (mass/volume)Ordered By: Jose Raul Pulliam on 11-27-2022 Hemoglobin (Bld) [Mass/Vol] 11.4 g/dL 12.0-15.0 [facility] Blood platelet mean volumeOr dered By: Jose Raul Pulliam on 11-27-2022 Platelet mean volume (Bld) [Entitic vol] 10.2 fL 6.2-12.0 [facility] Determination of erythrocyte mean corpuscular volume (MCV)Ordered By: Jose Raul Pulliam on 11-27-2022 MCV (RBC) [Entitic vol] 88.5 fL 81-99 [facility] Hematocrit Auto (Bld) [Volum e fraction]Ordered By: Jose Raul uPlliam on 11-27-2022 Hematocrit (Bld) [Volume fraction] 36.3 % 37-47 [facility] - Chemistry and C hemistry - challengeOrdered By: Jose Raul Pulliam on 11-27-2022 CO2 [Moles/Vol] 25.0 mmol/L 21.0-32.0 [facility] Urea nitrogen/Creatinine [Mass ratio] 23.6 mg/mg 10- [facility] - Hematology and Cell countsOrdered By: Jose Raul Pulliam on 11-27-2022 Erythrocyte distribution width (RBC) [Entitic vol] 48.2 fL 35.1-43.9 [facility] Erythrocyte distribution width (RBC) [Ratio] 14.7 % 11.6-14.6 [facility] MCH (RBC) [Entitic mass] 27.8 pg 27.0-32.0 [facility] MCHC Auto (RBC) [Mass/Vol]Or dered By: Jose Raul Pulliam on 11-27-2022 MCHC (RBC) [Mass/Vol] 31.4 g/dL 32- [facility] No Panel InformationOrdered By: Jose Raul Pulliam on 11-27-2022 Estimated GFR (MDRD) Amer 93 mL/min >60 [facility] Comment on above: GFR Calc Estimated GFR (MDRD) Non-Af Amer 77 mL/min >60 [facility] Comment on above: Non- GFR Calc Platelets bldOrdered By: Sam Pulliam on 11-27-2022 Platelets (Bld) [#/Vol] 263 10*3/uL 150-450 [facility] Serum or plasma calcium milagros urement (mass/volume)Ordered By: Jose Raul Pulliam on 11-27-2022 Calcium [Mass/Vol] 8.9 mg/dL 8.5-10.1 [facility] Serum or plasma creatinine m easurement (mass/volume)Ordered By: Jose Raul Pulliam on 11-27-2022 Creatinine [Mass/Vol] 0.76 mg/dL 0.55-1.02 [facility] Comment on above: The validity of the calculated GFR & GFRAA in patients over 70 years has not been determined. Clinical correlation is essential. Serum or plasma urea nitroge n measurement (mass/volume)Ordered By: Jose Raul Pulliam on 11-27-2022 Urea nitrogen [Mass/Vol] 18 mg/dL 7-18 [facility] Thin prep Papanicolaou smear with manual screeningOrdered By: Jose Raul Pulliam on 11-27-2022 Thin prep Papanicolaou smear with manual screening 7 5-15 [facility] Basophil percentageOrdered B y: Yahir Foster on 11-13-2022 Chloride [Moles/Vol] 111 mmol/L 98-107 [facility] Glucose [Mass/Vol] 90 mg/dL 74-106 [facility] Potassium [Moles/Vol] 4.1 mmol/L 3.5-5.1 [facility] Sodium [Moles/Vol] 142 mmol/L 136-145 [facility] WBC (Bld) [#/Vol] 6.0 10*3/uL 4.4-11.0 [facility] Blood erythrocytes count (nu mber/volume)Ordered By: Yahir Foster on 11-13-2022 RBC (Bld) [#/Vol] 4.01 10*6/uL 4.2-5.4 [facility] Blood hemoglobin measurement (mass/volume)Ordered By: Yahir Foster on 11-13-2022 Hemoglobin (Bld) [Mass/Vol] 11.0 g/dL 12.0-15.0 [facility] Blood platelet mean volumeOr dered By: Yahir Foster on 11-13-2022 Platelet mean volume (Bld) [Entitic vol] 10.1 fL 6.2-12.0 [facility] Determination of erythrocyte mean corpuscular volume (MCV)Ordered By: Yahir Foster on 11-13-2022 MCV (RBC) [Entitic vol] 89.3 fL 81-99 [facility] Hematocrit Auto (Bld) [Volum e fraction]Ordered By: Yahir Foster on 11-13-2022 Hematocrit (Bld) [Volume fraction] 35.8 % 37-47 [facility] - Chemistry and C hemistry - challengeOrdered By: Yahir Foster on 11-13-2022 CO2 [Moles/Vol] 26.0 mmol/L 21.0-32.0 [facility] Urea nitrogen/Creatinine [Mass ratio] 19.7 mg/mg 10-20 [facility] - Hematology and Cell countsOrdered By: Yahir Foster on 11-13-2022 Erythrocyte distribution width (RBC) [Entitic vol] 47.7 fL 35.1-43.9 [facility] Erythrocyte distribution width (RBC) [Ratio] 14.5 % 11.6-14.6 [facility] MCH (RBC) [Entitic mass] 27.4 pg 27.0-32.0 [facility] MCHC Auto (RBC) [Mass/Vol]Or dered By: Yahir Foster on 11-13-2022 MCHC (RBC) [Mass/Vol] 30.7 g/dL 32-36 [facility] No Panel InformationOrdered By: Yahir Foster on 11-13-2022 Estimated GFR (MDRD) Amer 93 mL/min >60 [facility] Comment on above: GFR Calc Estimated GFR (MDRD) Non-Af Amer 77 mL/min >60 [facility] Comment on above: Non- GFR Calc Platelets bldOrdered By: Jos Foster on 11-13-2022 Platelets (Bld) [#/Vol] 269 10*3/uL 150-450 [facility] Serum or plasma calcium milagros urement (mass/volume)Ordered By: Yahir Foster on 11-13-2022 Calcium [Mass/Vol] 8.7 mg/dL 8.5-10.1 [facility] Serum or plasma creatinine m easurement (mass/volume)Ordered By: Yahir Foster on 11-13-2022 Creatinine [Mass/Vol] 0.76 mg/dL 0.55-1.02 [facility] Comment on above: The validity of the calculated GFR & GFRAA in patients over 70 years has not been determined. Clinical correlation is essential. Serum or plasma urea nitroge n measurement (mass/volume)Ordered By: Yahir Foster on 11-13-2022 Urea nitrogen [Mass/Vol] 15 mg/dL 7-18 [facility] Thin prep Papanicolaou smear with manual screeningOrdered By: Yahir Foster on 11-13-2022 Thin prep Papanicolaou smear with manual screening 5 5-15 [facility] Basophil percentageOrdered B y: Yahir Foster on 10-30-2022 Chloride [Moles/Vol] 110 mmol/L 98-107 [facility] Glucose [Mass/Vol] 97 mg/dL 74-106 [facility] Potassium [Moles/Vol] 4.4 mmol/L 3.5-5.1 [facility] Sodium [Moles/Vol] 143 mmol/L 136-145 [facility] WBC (Bld) [#/Vol] 5.4 10*3/uL 4.4-11.0 [facility] Blood erythrocytes count (nu mber/volume)Ordered By: Yahir Foster on 10-30-2022 RBC (Bld) [#/Vol] 4.29 10*6/uL 4.2-5.4 [facility] Blood hemoglobin measurement (mass/volume)Ordered By: Yahir Foster on 10-30-2022 Hemoglobin (Bld) [Mass/Vol] 11.9 g/dL 12.0-15.0 [facility] Blood platelet mean volumeOr dered By: Yahir Foster on 10-30-2022 Platelet mean volume (Bld) [Entitic vol] 9.7 fL 6.2-12.0 [facility] Determination of erythrocyte mean corpuscular volume (MCV)Ordered By: Yahir Foster on 10-30-2022 MCV (RBC) [Entitic vol] 89.3 fL 81-99 [facility] Hematocrit Auto (Bld) [Volum e fraction]Ordered By: Yahir Foster on 10-30-2022 Hematocrit (Bld) [Volume fraction] 38.3 % 37-47 [facility] - Chemistry and C hemistry - challengeOrdered By: Yahir Foster on 10-30-2022 CO2 [Moles/Vol] 27.0 mmol/L 21.0-32.0 [facility] Urea nitrogen/Creatinine [Mass ratio] 19.2 mg/mg 10-20 [facility] - Hematology and Cell countsOrdered By: Yahir Foster on 10-30-2022 Erythrocyte distribution width (RBC) [Entitic vol] 48.9 fL 35.1-43.9 [facility] Erythrocyte distribution width (RBC) [Ratio] 14.9 % 11.6-14.6 [facility] MCH (RBC) [Entitic mass] 27.7 pg 27.0-32.0 [facility] MCHC Auto (RBC) [Mass/Vol]Or dered By: Yahir Foster on 10-30-2022 MCHC (RBC) [Mass/Vol] 31.1 g/dL 32-36 [facility] No Panel InformationOrdered By: Yahir Foster on 10-30-2022 Estimated GFR (MDRD) Amer 91 mL/min >60 [facility] Comment on above: GFR Calc Estimated GFR (MDRD) Non-Af Amer 75 mL/min >60 [facility] Comment on above: Non- GFR Calc Platelets bldOrdered By: Jso Foster on 10-30-2022 Platelets (Bld) [#/Vol] 255 10*3/uL 150-450 [facility] Serum or plasma calcium milagros urement (mass/volume)Ordered By: Yahir Foster on 10-30-2022 Calcium [Mass/Vol] 8.9 mg/dL 8.5-10.1 [facility] Serum or plasma creatinine m easurement (mass/volume)Ordered By: Yahir Foster on 10-30-2022 Creatinine [Mass/Vol] 0.78 mg/dL 0.55-1.02 [facility] Comment on above: The validity of the calculated GFR & GFRAA in patients over 70 years has not been determined. Clinical correlation is essential. Serum or plasma urea nitroge n measurement (mass/volume)Ordered By: Yahir Foster on 10-30-2022 Urea nitrogen [Mass/Vol] 15 mg/dL 7-18 [facility] Thin prep Papanicolaou smear with manual screeningOrdered By: Yahir Foster on 10-30-2022 Thin prep Papanicolaou smear with manual screening 6 5-15 [facility] Basophil percentageOrdered B y: Yahir Foster on 10-16-2022 Chloride [Moles/Vol] 109 mmol/L 98-107 [facility] Glucose [Mass/Vol] 101 mg/dL 74-106 [facility] Comment on above: Fasting Glucose resu lt from 100 to 125 mg/dL suggests IMPAIRED HOMEOSTASIS per A.D.A. criteria. Potassium [Moles/Vol] 3.9 mmol/L 3.5-5.1 [facility] Sodium [Moles/Vol] 143 mmol/L 136-145 [facility] WBC (Bld) [#/Vol] 5.7 10*3/uL 4.4-11.0 [facility] Blood erythrocytes count (nu mber/volume)Ordered By: Yahir Foster on 10-16-2022 RBC (Bld) [#/Vol] 4.65 10*6/uL 4.2-5.4 [facility] Blood hemoglobin measurement (mass/volume)Ordered By: Yahir Foster on 10-16-2022 Hemoglobin (Bld) [Mass/Vol] 12.8 g/dL 12.0-15.0 [facility] Blood platelet mean volumeOr dered By: Yahir Foster on 10-16-2022 Platelet mean volume (Bld) [Entitic vol] 9.8 fL 6.2-12.0 [facility] Determination of erythrocyte mean corpuscular volume (MCV)Ordered By: Yahir Foster on 10-16-2022 MCV (RBC) [Entitic vol] 90.8 fL 81-99 [facility] Hematocrit Auto (Bld) [Volum e fraction]Ordered By: Yahir Foster on 10-16-2022 Hematocrit (Bld) [Volume fraction] 42.2 % 37-47 [facility] - Chemistry and C hemistry - challengeOrdered By: Yahir Foster on 10-16-2022 CO2 [Moles/Vol] 28.0 mmol/L 21.0-32.0 [facility] Urea nitrogen/Creatinine [Mass ratio] 15.8 mg/mg 10-20 [facility] - Hematology and Cell countsOrdered By: Yahir Foster on 10-16-2022 Erythrocyte distribution width (RBC) [Entitic vol] 50.2 fL 35.1-43.9 [facility] Erythrocyte distribution width (RBC) [Ratio] 15.1 % 11.6-14.6 [facility] MCH (RBC) [Entitic mass] 27.5 pg 27.0-32.0 [facility] MCHC Auto (RBC) [Mass/Vol]Or dered By: Yahir Foster on 10-16-2022 MCHC (RBC) [Mass/Vol] 30.3 g/dL 32-36 [facility] No Panel InformationOrdered By: Yahir Foster on 10-16-2022 Estimated GFR (MDRD) Amer 85 mL/min >60 [facility] Comment on above: GFR Calc Estimated GFR (MDRD) Non-Af Amer 70 mL/min >60 [facility] Comment on above: Non- GFR Calc Platelets bldOrdered By: Jos Foster on 10-16-2022 Platelets (Bld) [#/Vol] 324 10*3/uL 150-450 [facility] Serum or plasma calcium milagros urement (mass/volume)Ordered By: Yahir Foster on 10-16-2022 Calcium [Mass/Vol] 9.1 mg/dL 8.5-10.1 [facility] Serum or plasma creatinine m easurement (mass/volume)Ordered By: Yahir Foster on 10-16-2022 Creatinine [Mass/Vol] 0.82 mg/dL 0.55-1.02 [facility] Comment on above: The validity of the calculated GFR & GFRAA in patients over 70 years has not been determined. Clinical correlation is essential. Serum or plasma urea nitroge n measurement (mass/volume)Ordered By: Yahir Foster on 10-16-2022 Urea nitrogen [Mass/Vol] 13 mg/dL 7-18 [facility] Thin prep Papanicolaou smear with manual screeningOrdered By: Yahir Foster on 10-16-2022 Thin prep Papanicolaou smear with manual screening 6 5-15 [facility] Basophil percentageOrdered B y: Jose Raul Pulliam on 10-02-2022 Chloride [Moles/Vol] 111 mmol/L 98-107 [facility] Glucose [Mass/Vol] 85 mg/dL 74-106 [facility] Potassium [Moles/Vol] 4.4 mmol/L 3.5-5.1 [facility] Sodium [Moles/Vol] 142 mmol/L 136-145 [facility] WBC (Bld) [#/Vol] 6.2 10*3/uL 4.4-11.0 [facility] Blood erythrocytes count (nu mber/volume)Ordered By: Jose Raul Pulliam on 10-02-2022 RBC (Bld) [#/Vol] 4.13 10*6/uL 4.2-5.4 [facility] Blood hemoglobin measurement (mass/volume)Ordered By: Jose Raul Pulliam on 10-02-2022 Hemoglobin (Bld) [Mass/Vol] 11.4 g/dL 12.0-15.0 [facility] Blood platelet mean volumeOr dered By: Jose Raul Pulliam on 10-02-2022 Platelet mean volume (Bld) [Entitic vol] 10.4 fL 6.2-12.0 [facility] Determination of erythrocyte mean corpuscular volume (MCV)Ordered By: Jose Raul Pulliam on 10-02-2022 MCV (RBC) [Entitic vol] 88.1 fL 81-99 [facility] Hematocrit Auto (Bld) [Volum e fraction]Ordered By: Jose Raul Pulliam on 10-02-2022 Hematocrit (Bld) [Volume fraction] 36.4 % 37-47 [facility] - Chemistry and C hemistry - challengeOrdered By: leandra Pulliam on 10-02-2022 CO2 [Moles/Vol] 22.0 mmol/L 21.0-32.0 [facility] Urea nitrogen/Creatinine [Mass ratio] 18.1 mg/mg 10-20 [facility] - Hematology and Cell countsOrdered By: Jose Raul Pulliam on 10-02-2022 Erythrocyte distribution width (RBC) [Entitic vol] 48.1 fL 35.1-43.9 [facility] Erythrocyte distribution width (RBC) [Ratio] 15.0 % 11.6-14.6 [facility] MCH (RBC) [Entitic mass] 27.6 pg 27.0-32.0 [facility] MCHC Auto (RBC) [Mass/Vol]Or dered By: Jose Raul Pulliam on 10-02-2022 MCHC (RBC) [Mass/Vol] 31.3 g/dL 32-36 [facility] No Panel InformationOrdered By: Jose Raul Pulliam on 10-02-2022 Estimated GFR (MDRD) Amer 99 mL/min >60 [facility] Comment on above: GFR Calc Estimated GFR (MDRD) Non-Af Amer 82 mL/min >60 [facility] Comment on above: Non- GFR Calc Whole Blood Vitamin B1 Level 146.2 nmol/L 66.5-200.0 [facility] Comment on above: Performed at: [address] [id number] Director: Jw Sanabria MD, Phone: [phone] Platelets bldOrdered By: Samjessenia akhtarjennifer Pulliam on 10-02-2022 Platelets (Bld) [#/Vol] 243 10*3/uL 150-450 [facility] Serum or plasma calcium milagros urement (mass/volume)Ordered By: Jose Raul Pulliam on 10-02-2022 Calcium [Mass/Vol] 8.9 mg/dL 8.5-10.1 [facility] Serum or plasma creatinine m easurement (mass/volume)Ordered By: Jose Raul Pulliam on 10-02-2022 Creatinine [Mass/Vol] 0.72 mg/dL 0.55-1.02 [facility] Comment on above: The validity of the calculated GFR & GFRAA in patients over 70 years has not been determined. Clinical correlation is essential. Serum or plasma folate measu rement (mass/volume)Ordered By: Jose Raul Pulliam on 10-02-2022 Folate [Mass/Vol] 64.60 ng/mL 3.1-55.4 [facility] Serum or plasma urea nitroge n measurement (mass/volume)Ordered By: Jose Raul Pulliam on 10-02-2022 Urea nitrogen [Mass/Vol] 13 mg/dL 7-18 [facility] Thin prep Papanicolaou smear with manual screeningOrdered By: Jose Raul Pulliam on 10-02-2022 Thin prep Papanicolaou smear with manual screening 9 5-15 [facility] Basophil percentageOrdered B y: Jose Raul Pulliam on 09-18-2022 Chloride [Moles/Vol] 110 mmol/L 98-107 [facility] Glucose [Mass/Vol] 98 mg/dL 74-106 [facility] Potassium [Moles/Vol] 4.0 mmol/L 3.5-5.1 [facility] Sodium [Moles/Vol] 142 mmol/L 136-145 [facility] WBC (Bld) [#/Vol] 6.5 10*3/uL 4.4-11.0 [facility] Blood erythrocytes count (nu mber/volume)Ordered By: Jose Raul Pulliam on 09-18-2022 RBC (Bld) [#/Vol] 4.71 10*6/uL 4.2-5.4 [facility] Blood hemoglobin measurement (mass/volume)Ordered By: Jose Raul Pulliam on 09-18-2022 Hemoglobin (Bld) [Mass/Vol] 13.2 g/dL 12.0-15.0 [facility] Blood platelet mean volumeOr dered By: Jose Raul Pulliam on 09-18-2022 Platelet mean volume (Bld) [Entitic vol] 10.4 fL 6.2-12.0 [facility] Determination of erythrocyte mean corpuscular volume (MCV)Ordered By: Jose Raul Pulliam on 09-18-2022 MCV (RBC) [Entitic vol] 86.8 fL 81-99 [facility] Hematocrit Auto (Bld) [Volum e fraction]Ordered By: Jose Raul Pulliam on 09-18-2022 Hematocrit (Bld) [Volume fraction] 40.9 % 37-47 [facility] - Chemistry and C hemistry - challengeOrdered By: Jose Raul Pulliam on 09-18-2022 CO2 [Moles/Vol] 24.0 mmol/L 21.0-32.0 [facility] Urea nitrogen/Creatinine [Mass ratio] 20.5 mg/mg 10-20 [facility] - Hematology and Cell countsOrdered By: Jose Raul Pulliam on 09-18-2022 Erythrocyte distribution width (RBC) [Entitic vol] 48.3 fL 35.1-43.9 [facility] Erythrocyte distribution width (RBC) [Ratio] 15.0 % 11.6-14.6 [facility] MCH (RBC) [Entitic mass] 28.0 pg 27.0-32.0 [facility] MCHC Auto (RBC) [Mass/Vol]Or dered By: Jose Raul Pulliam on 09-18-2022 MCHC (RBC) [Mass/Vol] 32.3 g/dL 32-36 [facility] No Panel InformationOrdered By: Jose Raul Pulliam on 09-18-2022 Estimated GFR (MDRD) Amer 84 mL/min >60 [facility] Comment on above: GFR Calc Estimated GFR (MDRD) Non-Af Amer 70 mL/min >60 [facility] Comment on above: Non- GFR Calc Platelets bldOrdered By: Sam Pulliam on 09-18-2022 Platelets (Bld) [#/Vol] 294 10*3/uL 150-450 [facility] Serum or plasma calcium milagros urement (mass/volume)Ordered By: Jose Raul Pulliam on 09-18-2022 Calcium [Mass/Vol] 9.2 mg/dL 8.5-10.1 [facility] Serum or plasma creatinine m easurement (mass/volume)Ordered By: Jose Raul Pulliam on 09-18-2022 Creatinine [Mass/Vol] 0.83 mg/dL 0.55-1.02 [facility] Comment on above: The validity of the calculated GFR & GFRAA in patients over 70 years has not been determined. Clinical correlation is essential. Serum or plasma urea nitroge n measurement (mass/volume)Ordered By: Jose Raul Pulliam on 09-18-2022 Urea nitrogen [Mass/Vol] 17 mg/dL 7-18 [facility] Thin prep Papanicolaou smear with manual screeningOrdered By: Jose Raul Pulliam on 09-18-2022 Thin prep Papanicolaou smear with manual screening 8 5-15 [facility] Basophil percentageOrdered B y: Jose Raul Pulliam on 09-05-2022 Chloride [Moles/Vol] 109 mmol/L 98-107 [facility] Glucose [Mass/Vol] 75 mg/dL 74-106 [facility] Potassium [Moles/Vol] 3.9 mmol/L 3.5-5.1 [facility] Sodium [Moles/Vol] 140 mmol/L 136-145 [facility] WBC (Bld) [#/Vol] 5.4 10*3/uL 4.4-11.0 [facility] Blood erythrocytes count (nu mber/volume)Ordered By: Jose Raul Pulliam on 09-05-2022 RBC (Bld) [#/Vol] 4.08 10*6/uL 4.2-5.4 [facility] Blood hemoglobin measurement (mass/volume)Ordered By: Jose Raul Pulliam on 09-05-2022 Hemoglobin (Bld) [Mass/Vol] 11.0 g/dL 12.0-15.0 [facility] Blood platelet mean volumeOr dered By: Jose Raul Pulliam on 09-05-2022 Platelet mean volume (Bld) [Entitic vol] 10.3 fL 6.2-12.0 [facility] Determination of erythrocyte mean corpuscular volume (MCV)Ordered By: Jose Raul Pulliam on 09-05-2022 MCV (RBC) [Entitic vol] 90.4 fL 81-99 [facility] Hematocrit Auto (Bld) [Volum e fraction]Ordered By: Jose Raul Pulliam on 09-05-2022 Hematocrit (Bld) [Volume fraction] 36.9 % 37-47 [facility] - Chemistry and C hemistry - challengeOrdered By: Jose Raul Pulliam on 09-05-2022 CO2 [Moles/Vol] 24.0 mmol/L 21.0-32.0 [facility] Urea nitrogen/Creatinine [Mass ratio] 19.6 mg/mg 10-20 [facility] - Hematology and Cell countsOrdered By: Jose Raul Pulliam on 09-05-2022 Erythrocyte distribution width (RBC) [Entitic vol] 50.2 fL 35.1-43.9 [facility] Erythrocyte distribution width (RBC) [Ratio] 15.2 % 11.6-14.6 [facility] MCH (RBC) [Entitic mass] 27.0 pg 27.0-32.0 [facility] MCHC Auto (RBC) [Mass/Vol]Or dered By: Jose Raul Pulliam on 09-05-2022 MCHC (RBC) [Mass/Vol] 29.8 g/dL 32-36 [facility] No Panel InformationOrdered By: Jose Raul Pulliam on 09-05-2022 Estimated GFR (MDRD) Amer 100 mL/min >60 [facility] Comment on above: GFR Calc Estimated GFR (MDRD) Non-Af Amer 83 mL/min >60 [facility] Comment on above: Non- GFR Calc Platelets bldOrdered By: Sam Pulliam on 09-05-2022 Platelets (Bld) [#/Vol] 258 10*3/uL 150-450 [facility] Serum or plasma calcium milagros urement (mass/volume)Ordered By: Jose Raul uPlliam on 09-05-2022 Calcium [Mass/Vol] 8.8 mg/dL 8.5-10.1 [facility] Serum or plasma creatinine m easurement (mass/volume)Ordered By: Jose Raul Pulliam on 09-05-2022 Creatinine [Mass/Vol] 0.72 mg/dL 0.55-1.02 [facility] Comment on above: The validity of the calculated GFR & GFRAA in patients over 70 years has not been determined. Clinical correlation is essential. Serum or plasma urea nitroge n measurement (mass/volume)Ordered By: Jose Raul Pulliam on 09-05-2022 Urea nitrogen [Mass/Vol] 14 mg/dL 7-18 [facility] Thin prep Papanicolaou smear with manual screeningOrdered By: Jose Raul Pulliam on 09-05-2022 Thin prep Papanicolaou smear with manual screening 7 5-15 [facility] Basophil percentageOrdered B y: Yahir Foster on 08-21-2022 Chloride [Moles/Vol] 111 mmol/L 98-107 [facility] Glucose [Mass/Vol] 98 mg/dL 74-106 [facility] Potassium [Moles/Vol] 4.3 mmol/L 3.5-5.1 [facility] Comment on above: Slight Hemolysis, Re sult may be falsely increased. Sodium [Moles/Vol] 140 mmol/L 136-145 [facility] WBC (Bld) [#/Vol] 6.3 10*3/uL 4.4-11.0 [facility] Blood erythrocytes count (nu mber/volume)Ordered By: Yahir Foster on 08-21-2022 RBC (Bld) [#/Vol] 4.60 10*6/uL 4.2-5.4 [facility] Blood hemoglobin measurement (mass/volume)Ordered By: Yahir Foster on 08-21-2022 Hemoglobin (Bld) [Mass/Vol] 12.6 g/dL 12.0-15.0 [facility] Blood platelet mean volumeOr dered By: Yahir Foster on 08-21-2022 Platelet mean volume (Bld) [Entitic vol] 10.0 fL 6.2-12.0 [facility] Determination of erythrocyte mean corpuscular volume (MCV)Ordered By: Yahir Foster on 08-21-2022 MCV (RBC) [Entitic vol] 87.4 fL 81-99 [facility] Hematocrit Auto (Bld) [Volum e fraction]Ordered By: Yahir Foster on 08-21-2022 Hematocrit (Bld) [Volume fraction] 40.2 % 37-47 [facility] - Chemistry and C hemistry - challengeOrdered By: Yahir Foster on 08-21-2022 CO2 [Moles/Vol] 23.0 mmol/L 21.0-32.0 [facility] Urea nitrogen/Creatinine [Mass ratio] 16.9 mg/mg 10-20 [facility] - Hematology and Cell countsOrdered By: Yahir Foster on 08-21-2022 Erythrocyte distribution width (RBC) [Entitic vol] 47.8 fL 35.1-43.9 [facility] Erythrocyte distribution width (RBC) [Ratio] 14.8 % 11.6-14.6 [facility] MCH (RBC) [Entitic mass] 27.4 pg 27.0-32.0 [facility] MCHC Auto (RBC) [Mass/Vol]Or dered By: Yahir Foster on 08-21-2022 MCHC (RBC) [Mass/Vol] 31.3 g/dL 32-36 [facility] No Panel InformationOrdered By: Yahir Foster on 08-21-2022 Estimated GFR (MDRD) Amer 85 mL/min >60 [facility] Comment on above: GFR Calc Estimated GFR (MDRD) Non-Af Amer 70 mL/min >60 [facility] Comment on above: Non- GFR Calc Platelets bldOrdered By: Jos Foster on 08-21-2022 Platelets (Bld) [#/Vol] 301 10*3/uL 150-450 [facility] Serum or plasma calcium milagros urement (mass/volume)Ordered By: Yahir Foster on 08-21-2022 Calcium [Mass/Vol] 9.1 mg/dL 8.5-10.1 [facility] Serum or plasma creatinine m easurement (mass/volume)Ordered By: Yahir Foster on 08-21-2022 Creatinine [Mass/Vol] 0.83 mg/dL 0.55-1.02 [facility] Comment on above: The validity of the calculated GFR & GFRAA in patients over 70 years has not been determined. Clinical correlation is essential. Serum or plasma urea nitroge n measurement (mass/volume)Ordered By: Yahir Foster on 08-21-2022 Urea nitrogen [Mass/Vol] 14 mg/dL 7-18 [facility] Thin prep Papanicolaou smear with manual screeningOrdered By: Yahir Foster on 08-21-2022 Thin prep Papanicolaou smear with manual screening 6 5-15 [facility] Basophil percentageOrdered B y: Yahir Foster on 08-07-2022 Chloride [Moles/Vol] 110 mmol/L 98-107 [facility] Glucose [Mass/Vol] 86 mg/dL 74-106 [facility] Potassium [Moles/Vol] 4.1 mmol/L 3.5-5.1 [facility] Sodium [Moles/Vol] 142 mmol/L 136-145 [facility] WBC (Bld) [#/Vol] 6.1 10*3/uL 4.4-11.0 [facility] Blood erythrocytes count (nu mber/volume)Ordered By: Yahir Foster on 08-07-2022 RBC (Bld) [#/Vol] 4.45 10*6/uL 4.2-5.4 [facility] Blood hemoglobin measurement (mass/volume)Ordered By: Yahir Foster on 08-07-2022 Hemoglobin (Bld) [Mass/Vol] 12.0 g/dL 12.0-15.0 [facility] Blood platelet mean volumeOr dered By: Yahir Foster on 08-07-2022 Platelet mean volume (Bld) [Entitic vol] 10.0 fL 6.2-12.0 [facility] Determination of erythrocyte mean corpuscular volume (MCV)Ordered By: Yahir Foster on 08-07-2022 MCV (RBC) [Entitic vol] 88.5 fL 81-99 [facility] Hematocrit Auto (Bld) [Volum e fraction]Ordered By: Yahir Foster on 08-07-2022 Hematocrit (Bld) [Volume fraction] 39.4 % 37-47 [facility] - Chemistry and C hemistry - challengeOrdered By: Yahir Foster on 08-07-2022 CO2 [Moles/Vol] 24.0 mmol/L 21.0-32.0 [facility] Urea nitrogen/Creatinine [Mass ratio] 18.4 mg/mg 10-20 [facility] - Hematology and Cell countsOrdered By: Yahir Foster on 08-07-2022 Erythrocyte distribution width (RBC) [Entitic vol] 48.8 fL 35.1-43.9 [facility] Erythrocyte distribution width (RBC) [Ratio] 15.0 % 11.6-14.6 [facility] MCH (RBC) [Entitic mass] 27.0 pg 27.0-32.0 [facility] MCHC Auto (RBC) [Mass/Vol]Or dered By: Yahir Foster on 08-07-2022 MCHC (RBC) [Mass/Vol] 30.5 g/dL 32-36 [facility] No Panel InformationOrdered By: Yahir Foster on 08-07-2022 Estimated GFR (MDRD) Amer 86 mL/min >60 [facility] Comment on above: GFR Calc Estimated GFR (MDRD) Non-Af Amer 71 mL/min >60 [facility] Comment on above: Non- GFR Calc Platelets bldOrdered By: Jos Foster on 08-07-2022 Platelets (Bld) [#/Vol] 276 10*3/uL 150-450 [facility] Serum or plasma calcium milagros urement (mass/volume)Ordered By: Yahir Foster on 08-07-2022 Calcium [Mass/Vol] 9.1 mg/dL 8.5-10.1 [facility] Serum or plasma creatinine m easurement (mass/volume)Ordered By: Yahir Foster on 08-07-2022 Creatinine [Mass/Vol] 0.81 mg/dL 0.55-1.02 [facility] Comment on above: The validity of the calculated GFR & GFRAA in patients over 70 years has not been determined. Clinical correlation is essential. Serum or plasma urea nitroge n measurement (mass/volume)Ordered By: Yahir Foster on 08-07-2022 Urea nitrogen [Mass/Vol] 15 mg/dL 7-18 [facility] Thin prep Papanicolaou smear with manual screeningOrdered By: Yahir Foster on 08-07-2022 Thin prep Papanicolaou smear with manual screening 8 5-15 [facility] Basophil percentageOrdered B y: Yahir Foster on 07-24-2022 Chloride [Moles/Vol] 106 mmol/L 98-107 [facility] Glucose [Mass/Vol] 85 mg/dL 74-106 [facility] Potassium [Moles/Vol] 3.9 mmol/L 3.5-5.1 [facility] Sodium [Moles/Vol] 141 mmol/L 136-145 [facility] WBC (Bld) [#/Vol] 7.2 10*3/uL 4.4-11.0 [facility] Blood erythrocytes count (nu mber/volume)Ordered By: Yahir Foster on 07-24-2022 RBC (Bld) [#/Vol] 4.67 10*6/uL 4.2-5.4 [facility] Blood hemoglobin measurement (mass/volume)Ordered By: Yahir Foster on 07-24-2022 Hemoglobin (Bld) [Mass/Vol] 12.8 g/dL 12.0-15.0 [facility] Blood platelet mean volumeOr dered By: Yahir Foster on 07-24-2022 Platelet mean volume (Bld) [Entitic vol] 10.5 fL 6.2-12.0 [facility] Determination of erythrocyte mean corpuscular volume (MCV)Ordered By: Yahir Foster on 07-24-2022 MCV (RBC) [Entitic vol] 87.6 fL 81-99 [facility] Hematocrit Auto (Bld) [Volum e fraction]Ordered By: Yahir Foster on 07-24-2022 Hematocrit (Bld) [Volume fraction] 40.9 % 37-47 [facility] - Chemistry and C hemistry - challengeOrdered By: Yahir Foster on 07-24-2022 CO2 [Moles/Vol] 27.0 mmol/L 21.0-32.0 [facility] Urea nitrogen/Creatinine [Mass ratio] 17.9 mg/mg 10-20 [facility] - Hematology and Cell countsOrdered By: Yahir Foster on 07-24-2022 Erythrocyte distribution width (RBC) [Entitic vol] 46.5 fL 35.1-43.9 [facility] Erythrocyte distribution width (RBC) [Ratio] 14.5 % 11.6-14.6 [facility] MCH (RBC) [Entitic mass] 27.4 pg 27.0-32.0 [facility] MCHC Auto (RBC) [Mass/Vol]Or dered By: Yahir Foster on 07-24-2022 MCHC (RBC) [Mass/Vol] 31.3 g/dL 32-36 [facility] No Panel InformationOrdered By: Yahir Foster on 07-24-2022 Estimated GFR (MDRD) Amer 90 mL/min >60 [facility] Comment on above: GFR Calc Estimated GFR (MDRD) Non-Af Amer 75 mL/min >60 [facility] Comment on above: Non- GFR Calc Platelets bldOrdered By: Jos Foster on 07-24-2022 Platelets (Bld) [#/Vol] 267 10*3/uL 150-450 [facility] Serum or plasma calcium milagros urement (mass/volume)Ordered By: Yahir Foster on 07-24-2022 Calcium [Mass/Vol] 9.0 mg/dL 8.5-10.1 [facility] Serum or plasma creatinine m easurement (mass/volume)Ordered By: Yahir Foster on 07-24-2022 Creatinine [Mass/Vol] 0.78 mg/dL 0.55-1.02 [facility] Comment on above: The validity of the calculated GFR & GFRAA in patients over 70 years has not been determined. Clinical correlation is essential. Serum or plasma urea nitroge n measurement (mass/volume)Ordered By: Yahir Foster on 07-24-2022 Urea nitrogen [Mass/Vol] 14 mg/dL 7-18 [facility] Thin prep Papanicolaou smear with manual screeningOrdered By: Yahir Foster on 07-24-2022 Thin prep Papanicolaou smear with manual screening 8 5-15 [facility] Basophil percentageOrdered B y: Yahir Foster on 07-10-2022 Chloride [Moles/Vol] 108 mmol/L 98-107 [facility] Glucose [Mass/Vol] 89 mg/dL 74-106 [facility] Potassium [Moles/Vol] 4.2 mmol/L 3.5-5.1 [facility] Sodium [Moles/Vol] 143 mmol/L 136-145 [facility] WBC (Bld) [#/Vol] 5.9 10*3/uL 4.4-11.0 [facility] Blood erythrocytes count (nu mber/volume)Ordered By: Yahir Foster on 07-10-2022 RBC (Bld) [#/Vol] 4.24 10*6/uL 4.2-5.4 [facility] Blood hemoglobin measurement (mass/volume)Ordered By: Yahir Foster on 07-10-2022 Hemoglobin (Bld) [Mass/Vol] 11.9 g/dL 12.0-15.0 [facility] Blood platelet mean volumeOr dered By: Yahir Foster on 07-10-2022 Platelet mean volume (Bld) [Entitic vol] 9.9 fL 6.2-12.0 [facility] Determination of erythrocyte mean corpuscular volume (MCV)Ordered By: Yahir Foster on 07-10-2022 MCV (RBC) [Entitic vol] 87.3 fL 81-99 [facility] Hematocrit Auto (Bld) [Volum e fraction]Ordered By: Yahir Foster on 07-10-2022 Hematocrit (Bld) [Volume fraction] 37.0 % 37-47 [facility] Laboratory - Chemistry and C hemistry - challengeOrdered By: Yahir Foster on 07-10-2022 CO2 [Moles/Vol] 24.0 mmol/L 21.0-32.0 [facility] Urea nitrogen/Creatinine [Mass ratio] 19.9 mg/mg 10-20 [facility] Laboratory - Hematology and Cell countsOrdered By: Yahir Foster on 07-10-2022 Erythrocyte distribution width (RBC) [Entitic vol] 46.5 fL 35.1-43.9 [facility] Erythrocyte distribution width (RBC) [Ratio] 14.4 % 11.6-14.6 [facility] MCH (RBC) [Entitic mass] 28.1 pg 27.0-32.0 [facility] MCHC Auto (RBC) [Mass/Vol]Or dered By: Yahir Foster on 07-10-2022 MCHC (RBC) [Mass/Vol] 32.2 g/dL 32-36 [facility] No Panel InformationOrdered By: Yahir Foster on 07-10-2022 Estimated GFR (MDRD) Amer 88 mL/min >60 [facility] Comment on above: GFR Calc Estimated GFR (MDRD) Non-Af Amer 72 mL/min >60 [facility] Comment on above: Non- GFR Calc Platelets bldOrdered By: Jos Foster on 07-10-2022 Platelets (Bld) [#/Vol] 256 10*3/uL 150-450 [facility] Serum or plasma calcium milagros urement (mass/volume)Ordered By: Yahir Foster on 07-10-2022 Calcium [Mass/Vol] 8.7 mg/dL 8.5-10.1 [facility] Serum or plasma creatinine m easurement (mass/volume)Ordered By: Yahir Foster on 07-10-2022 Creatinine [Mass/Vol] 0.80 mg/dL 0.55-1.02 [facility] Comment on above: The validity of the calculated GFR & GFRAA in patients over 70 years has not been determined. Clinical correlation is essential. Serum or plasma urea nitroge n measurement (mass/volume)Ordered By: Yahir Foster on 07-10-2022 Urea nitrogen [Mass/Vol] 16 mg/dL 7-18 [facility] Thin prep Papanicolaou smear with manual screeningOrdered By: Yahir Foster on 07-10-2022 Thin prep Papanicolaou smear with manual screening 11 5-15 [facility] Basophil percentageon 2021 Chloride [Moles/Vol] 109 mmol/L 98-107 [facility] Work Phone: Glucose [Mass/Vol] 86 mg/dL 74-106 [facility] Work Phone: Potassium [Moles/Vol] 4.1 mmol/L 3.5-5.1 [facility] Work Phone: Sodium [Moles/Vol] 144 mmol/L 136-145 [facility] Work Phone: WBC (Bld) [#/Vol] 5.8 10*3/uL 4.4-11.0 [facility] Work Phone: Blood erythrocytes count (nu mber/volume)on 06-26-2022 RBC (Bld) [#/Vol] 4.10 10*6/uL 4.2-5.4 [facility] Work Phone: Blood hemoglobin measurement (mass/volume)on 06-26-2022 Hemoglobin (Bld) [Mass/Vol] 11.4 g/dL 12.0-15.0 [facility] Work Phone: Blood platelet mean volumeon 06-26-2022 Platelet mean volume (Bld) [Entitic vol] 10.0 fL 6.2-12.0 [facility] Work Phone: Determination of erythrocyte mean corpuscular volume (MCV)on 06-26-2022 MCV (RBC) [Entitic vol] 89.0 fL 81-99 [facility] Work Phone: Hematocrit Auto (Bld) [Volum e fraction]on 06-26-2022 Hematocrit (Bld) [Volume fraction] 36.5 % 37-47 [facility] Work Phone: Laboratory - Chemistry and C hemistry - challengeon 06-26-2022 CO2 [Moles/Vol] 25.0 mmol/L 21.0-32.0 [facility] Work Phone: Urea nitrogen/Creatinine [Mass ratio] 18.7 mg/mg 10-20 [facility] Work Phone: Laboratory - Hematology and Cell countson 06-26-2022 Erythrocyte distribution width (RBC) [Entitic vol] 46.3 fL 35.1-43.9 [facility] Work Phone: Erythrocyte distribution width (RBC) [Ratio] 14.3 % 11.6-14.6 [facility] Work Phone: MCH (RBC) [Entitic mass] 27.8 pg 27.0-32.0 [facility] Work Phone: MCHC Auto (RBC) [Mass/Vol]on 06-26-2022 MCHC (RBC) [Mass/Vol] 31.2 g/dL 32-36 [facility] Work Phone: No Panel Informationon 06-26 Estimated GFR (MDRD) Amer 95 mL/min >60 [facility] Work Phone: Comment on above: GFR Calc Estimated GFR (MDRD) Non-Af Amer 78 mL/min >60 [facility] Work Phone: Comment on above: Non- GFR Calc Platelets bldon 06-26-2022 Platelets (Bld) [#/Vol] 239 10*3/uL 150-450 [facility] Work Phone: Serum or plasma calcium milagros urement (mass/volume)on 06-26-2022 Calcium [Mass/Vol] 8.9 mg/dL 8.5-10.1 [facility] Work Phone: Serum or plasma creatinine m easurement (mass/volume)on 06-26-2022 Creatinine [Mass/Vol] 0.75 mg/dL 0.55-1.02 [facility] Work Phone: Comment on above: The validity of the calculated GFR & GFRAA in patients over 70 years has not been determined. Clinical correlation is essential. Serum or plasma urea nitroge n measurement (mass/volume)on 06-26-2022 Urea nitrogen [Mass/Vol] 14 mg/dL 7-18 [facility] Work Phone: Thin prep Papanicolaou smear with manual screeningon 06-26-2022 Thin prep Papanicolaou smear with manual screening 5-15 [facility] Work Phone: Basophil percentageon 2021 Chloride [Moles/Vol] 107 mmol/L 98-107 [facility] Work Phone: Glucose [Mass/Vol] 91 mg/dL 74-106 [facility] Work Phone: Potassium [Moles/Vol] 3.9 mmol/L 3.5-5.1 [facility] Work Phone: Sodium [Moles/Vol] 141 mmol/L 136-145 [facility] Work Phone: WBC (Bld) [#/Vol] 6.1 10*3/uL 4.4-11.0 [facility] Work Phone: Blood erythrocytes count (nu mber/volume)on 06-12-2022 RBC (Bld) [#/Vol] 4.62 10*6/uL 4.2-5.4 [facility] Work Phone: Blood hemoglobin measurement (mass/volume)on 06-12-2022 Hemoglobin (Bld) [Mass/Vol] 12.8 g/dL 12.0-15.0 [facility] Work Phone: Blood platelet mean volumeon 06-12-2022 Platelet mean volume (Bld) [Entitic vol] 9.7 fL 6.2-12.0 [facility] Work Phone: Determination of erythrocyte mean corpuscular volume (MCV)on 06-12-2022 MCV (RBC) [Entitic vol] 90.3 fL 81-99 [facility] Work Phone: Hematocrit Auto (Bld) [Volum e fraction]on 06-12-2022 Hematocrit (Bld) [Volume fraction] 41.7 % 37-47 [facility] Work Phone: Laboratory - Chemistry and C hemistry - challengeon 06-12-2022 CO2 [Moles/Vol] 28.0 mmol/L 21.0-32.0 [facility] Work Phone: Urea nitrogen/Creatinine [Mass ratio] 19.3 mg/mg 10-20 [facility] Work Phone: Laboratory - Hematology and Cell countson 06-12-2022 Erythrocyte distribution width (RBC) [Entitic vol] 48.3 fL 35.1-43.9 [facility] Work Phone: Erythrocyte distribution width (RBC) [Ratio] 14.6 % 11.6-14.6 [facility] Work Phone: MCH (RBC) [Entitic mass] 27.7 pg 27.0-32.0 [facility] Work Phone: MCHC Auto (RBC) [Mass/Vol]on 06-12-2022 MCHC (RBC) [Mass/Vol] 30.7 g/dL 32-36 [facility] Work Phone: No Panel Informationon 06-12 Estimated GFR (MDRD) Amer 91 mL/min >60 [facility] Work Phone: Comment on above: GFR Calc Estimated GFR (MDRD) Non-Af Amer 75 mL/min >60 [facility] Work Phone: Comment on above: Non- GFR Calc Platelets bldon 06-12-2022 Platelets (Bld) [#/Vol] 293 10*3/uL 150-450 [facility] Work Phone: Serum or plasma calcium milagros urement (mass/volume)on 06-12-2022 Calcium [Mass/Vol] 9.3 mg/dL 8.5-10.1 [facility] Work Phone: Serum or plasma creatinine m easurement (mass/volume)on 06-12-2022 Creatinine [Mass/Vol] 0.78 mg/dL 0.55-1.02 [facility] Work Phone: Comment on above: The validity of the calculated GFR & GFRAA in patients over 70 years has not been determined. Clinical correlation is essential. Serum or plasma urea nitroge n measurement (mass/volume)on 06-12-2022 Urea nitrogen [Mass/Vol] 15 mg/dL 7-18 [facility] Work Phone: Thin prep Papanicolaou smear with manual screeningon 06-12-2022 Thin prep Papanicolaou smear with manual screening 6 5-15 [facility] Work Phone: Basophil percentageon 2021 Chloride [Moles/Vol] 108 mmol/L 98-107 [facility] Work Phone: Glucose [Mass/Vol] 88 mg/dL 74-106 [facility] Work Phone: Potassium [Moles/Vol] 4.0 mmol/L 3.5-5.1 [facility] Work Phone: Sodium [Moles/Vol] 140 mmol/L 136-145 [facility] Work Phone: WBC (Bld) [#/Vol] 6.0 10*3/uL 4.4-11.0 [facility] Work Phone: Blood erythrocytes count (nu mber/volume)on 05-29-2022 RBC (Bld) [#/Vol] 4.13 10*6/uL 4.2-5.4 [facility] Work Phone: Blood hemoglobin measurement (mass/volume)on 05-29-2022 Hemoglobin (Bld) [Mass/Vol] 11.7 g/dL 12.0-15.0 [facility] Work Phone: Blood platelet mean volumeon 05-29-2022 Platelet mean volume (Bld) [Entitic vol] 10.1 fL 6.2-12.0 [facility] Work Phone: Determination of erythrocyte mean corpuscular volume (MCV)on 05-29-2022 MCV (RBC) [Entitic vol] 89.6 fL 81-99 [facility] Work Phone: Hematocrit Auto (Bld) [Volum e fraction]on 05-29-2022 Hematocrit (Bld) [Volume fraction] 37.0 % 37-47 [facility] Work Phone: Laboratory - Chemistry and C hemistry - challengeon 05-29-2022 CO2 [Moles/Vol] 25.0 mmol/L 21.0-32.0 [facility] Work Phone: Urea nitrogen/Creatinine [Mass ratio] 16.8 mg/mg 10-20 [facility] Work Phone: Laboratory - Hematology and Cell countson 05-29-2022 Erythrocyte distribution width (RBC) [Entitic vol] 46.7 fL 35.1-43.9 [facility] Work Phone: Erythrocyte distribution width (RBC) [Ratio] 14.3 % 11.6-14.6 [facility] Work Phone: MCH (RBC) [Entitic mass] 28.3 pg 27.0-32.0 [facility] Work Phone: MCHC Auto (RBC) [Mass/Vol]on 05-29-2022 MCHC (RBC) [Mass/Vol] 31.6 g/dL 32-36 [facility] Work Phone: No Panel Informationon 05-29 Estimated GFR (MDRD) Amer 92 mL/min >60 [facility] Work Phone: Comment on above: GFR Calc Estimated GFR (MDRD) Non-Af Amer 76 mL/min >60 [facility] Work Phone: Comment on above: Non- GFR Calc Platelets bldon 05-29-2022 Platelets (Bld) [#/Vol] 256 10*3/uL 150-450 [facility] Work Phone: Serum or plasma calcium milagros urement (mass/volume)on 05-29-2022 Calcium [Mass/Vol] 9.0 mg/dL 8.5-10.1 [facility] Work Phone: Serum or plasma creatinine m easurement (mass/volume)on 05-29-2022 Creatinine [Mass/Vol] 0.77 mg/dL 0.55-1.02 [facility] Work Phone: Comment on above: The validity of the calculated GFR & GFRAA in patients over 70 years has not been determined. Clinical correlation is essential. Serum or plasma urea nitroge n measurement (mass/volume)on 05-29-2022 Urea nitrogen [Mass/Vol] 13 mg/dL 7-18 [facility] Work Phone: Thin prep Papanicolaou smear with manual screeningon 05-29-2022 Thin prep Papanicolaou smear with manual screening 7 5-15 [facility] Work Phone: Basophil percentageon 2021 Chloride [Moles/Vol] 111 mmol/L 98-[address] [facility] Work Phone: Glucose [Mass/Vol] 84 mg/dL 74-106 [facility] Work Phone: Potassium [Moles/Vol] 4.1 mmol/L 3.5-5.1 [facility] Work Phone: Sodium [Moles/Vol] 142 mmol/L 136-145 [facility] Work Phone: WBC (Bld) [#/Vol] 5.7 10*3/uL 4.4-11.0 [facility] Work Phone: Blood erythrocytes count (nu mber/volume)on 05-16-2022 RBC (Bld) [#/Vol] 4.06 10*6/uL 4.2-5.4 [facility] Work Phone: Blood hemoglobin measurement (mass/volume)on 05-16-2022 Hemoglobin (Bld) [Mass/Vol] 11.6 g/dL 12.0-15.0 [facility] Work Phone: Blood platelet mean volumeon 05-16-2022 Platelet mean volume (Bld) [Entitic vol] 10.2 fL 6.2-12.0 [facility] Work Phone: Determination of erythrocyte mean corpuscular volume (MCV)on 05-16-2022 MCV (RBC) [Entitic vol] 89.9 fL 81-99 [facility] Work Phone: Hematocrit Auto (Bld) [Volum e fraction]on 05-16-2022 Hematocrit (Bld) [Volume fraction] 36.5 % 37-47 [facility] Work Phone: Laboratory - Chemistry and C hemistry - challengeon 05-16-2022 CO2 [Moles/Vol] 25.0 mmol/L 21.0-32.0 [facility] Work Phone: Urea nitrogen/Creatinine [Mass ratio] 20.6 mg/mg 10-20 [facility] Work Phone: Laboratory - Hematology and Cell countson 05-16-2022 Erythrocyte distribution width (RBC) [Entitic vol] 48.6 fL 35.1-43.9 [facility] Work Phone: Erythrocyte distribution width (RBC) [Ratio] 14.6 % 11.6-14.6 [facility] Work Phone: MCH (RBC) [Entitic mass] 28.6 pg 27.0-32.0 [facility] Work Phone: MCHC Auto (RBC) [Mass/Vol]on 05-16-2022 MCHC (RBC) [Mass/Vol] 31.8 g/dL 32-36 [facility] Work Phone: No Panel Informationon 05-16 Estimated GFR (MDRD) Amer 98 mL/min >60 [facility] Work Phone: Comment on above: GFR Calc Estimated GFR (MDRD) Non-Af Amer 81 mL/min >60 [facility] Work Phone: Comment on above: Non- GFR Calc Platelets bldon 05-16-2022 Platelets (Bld) [#/Vol] 247 10*3/uL 150-450 [facility] Work Phone: Serum or plasma calcium milagros urement (mass/volume)on 05-16-2022 Calcium [Mass/Vol] 9.0 mg/dL 8.5-10.1 [facility] Work Phone: Serum or plasma creatinine m easurement (mass/volume)on 05-16-2022 Creatinine [Mass/Vol] 0.73 mg/dL 0.55-1.02 [facility] Work Phone: Comment on above: The validity of the calculated GFR & GFRAA in patients over 70 years has not been determined. Clinical correlation is essential. Serum or plasma urea nitroge n measurement (mass/volume)on 05-16-2022 Urea nitrogen [Mass/Vol] 15 mg/dL 7-18 [facility] Work Phone: Thin prep Papanicolaou smear with manual screeningon 05-16-2022 Thin prep Papanicolaou smear with manual screening 6 5-15 [facility] Work Phone: Basophil percentageon 2021 Chloride [Moles/Vol] 111 mmol/L 98-107 [facility] Work Phone: Glucose [Mass/Vol] 90 mg/dL 74-106 [facility] Work Phone: Potassium [Moles/Vol] 4.2 mmol/L 3.5-5.1 [facility] Work Phone: Sodium [Moles/Vol] 141 mmol/L 136-145 [facility] Work Phone: WBC (Bld) [#/Vol] 5.9 10*3/uL 4.4-11.0 [facility] Work Phone: Blood erythrocytes count (nu mber/volume)on 05-01-2022 RBC (Bld) [#/Vol] 3.99 10*6/uL 4.2-5.4 [facility] Work Phone: Blood hemoglobin measurement (mass/volume)on 05-01-2022 Hemoglobin (Bld) [Mass/Vol] 11.2 g/dL 12.0-15.0 [facility] Work Phone: Blood platelet mean volumeon 05-01-2022 Platelet mean volume (Bld) [Entitic vol] 10.1 fL 6.2-12.0 [facility] Work Phone: Determination of erythrocyte mean corpuscular volume (MCV)on 05-01-2022 MCV (RBC) [Entitic vol] 89.7 fL 81-99 [facility] Work Phone: Hematocrit Auto (Bld) [Volum e fraction]on 05-01-2022 Hematocrit (Bld) [Volume fraction] 35.8 % 37-47 [facility] Work Phone: Laboratory - Chemistry and C hemistry - challengeon 05-01-2022 CO2 [Moles/Vol] 26.0 mmol/L 21.0-32.0 [facility] Work Phone: Urea nitrogen/Creatinine [Mass ratio] 17.1 mg/mg 10-20 [facility] Work Phone: Laboratory - Hematology and Cell countson 05-01-2022 Erythrocyte distribution width (RBC) [Entitic vol] 48.2 fL 35.1-43.9 [facility] Work Phone: Erythrocyte distribution width (RBC) [Ratio] 14.7 % 11.6-14.6 [facility] Work Phone: MCH (RBC) [Entitic mass] 28.1 pg 27.0-32.0 [facility] Work Phone: MCHC Auto (RBC) [Mass/Vol]on 05-01-2022 MCHC (RBC) [Mass/Vol] 31.3 g/dL 32-36 [facility] Work Phone: No Panel Informationon 05-01 Estimated GFR (MDRD) Amer 93 mL/min >60 [facility] Work Phone: Comment on above: GFR Calc Estimated GFR (MDRD) Non-Af Amer 77 mL/min >60 [facility] Work Phone: Comment on above: Non- GFR Calc Platelets bldon 05-01-2022 Platelets (Bld) [#/Vol] 254 10*3/uL 150-450 [facility] Work Phone: Serum or plasma calcium milagros urement (mass/volume)on 05-01-2022 Calcium [Mass/Vol] 9.0 mg/dL 8.5-10.1 [facility] Work Phone: Serum or plasma creatinine m easurement (mass/volume)on 05-01-2022 Creatinine [Mass/Vol] 0.76 mg/dL 0.55-1.02 [facility] Work Phone: Comment on above: The validity of the calculated GFR & GFRAA in patients over 70 years has not been determined. Clinical correlation is essential. Serum or plasma urea nitroge n measurement (mass/volume)on 05-01-2022 Urea nitrogen [Mass/Vol] 13 mg/dL 7-18 [facility] Work Phone: Thin prep Papanicolaou smear with manual screeningon 05-01-2022 Thin prep Papanicolaou smear with manual screening 4 5-15 [facility] Work Phone: Basophil percentageon 2021 Chloride [Moles/Vol] 110 mmol/L 98-107 [facility] Work Phone: Glucose [Mass/Vol] 91 mg/dL 74-106 [facility] Work Phone: Potassium [Moles/Vol] 4.1 mmol/L 3.5-5.1 [facility] Work Phone: Sodium [Moles/Vol] 140 mmol/L 136-145 [facility] Work Phone: WBC (Bld) [#/Vol] 6.3 10*3/uL 4.4-11.0 [facility] Work Phone: Blood erythrocytes count (nu mber/volume)on 04-17-2022 RBC (Bld) [#/Vol] 4.06 10*6/uL 4.2-5.4 [facility] Work Phone: Blood hemoglobin measurement (mass/volume)on 04-17-2022 Hemoglobin (Bld) [Mass/Vol] 11.6 g/dL 12.0-15.0 [facility] Work Phone: Blood platelet mean volumeon 04-17-2022 Platelet mean volume (Bld) [Entitic vol] 9.8 fL 6.2-12.0 [facility] Work Phone: Determination of erythrocyte mean corpuscular volume (MCV)on 04-17-2022 MCV (RBC) [Entitic vol] 89.2 fL 81-99 [facility] Work Phone: Hematocrit Auto (Bld) [Volum e fraction]on 04-17-2022 Hematocrit (Bld) [Volume fraction] 36.2 % 37-47 [facility] Work Phone: Laboratory - Chemistry and C hemistry - challengeon 04-17-2022 CO2 [Moles/Vol] 25.0 mmol/L 21.0-32.0 [facility] Work Phone: Urea nitrogen/Creatinine [Mass ratio] 24.4 mg/mg 10-20 [facility] Work Phone: Laboratory - Hematology and Cell countson 04-17-2022 Erythrocyte distribution width (RBC) [Entitic vol] 49.6 fL 35.1-43.9 [facility] Work Phone: Erythrocyte distribution width (RBC) [Ratio] 15.0 % 11.6-14.6 [facility] Work Phone: MCH (RBC) [Entitic mass] 28.6 pg 27.0-32.0 [facility] Work Phone: MCHC Auto (RBC) [Mass/Vol]on 04-17-2022 MCHC (RBC) [Mass/Vol] 32.0 g/dL 32-36 [facility] Work Phone: No Panel Informationon 04-17 Estimated GFR (MDRD) Amer 86 mL/min >60 [facility] Work Phone: Comment on above: GFR Calc Estimated GFR (MDRD) Non-Af Amer 71 mL/min >60 [facility] Work Phone: Comment on above: Non- GFR Calc Platelets bldon 04-17-2022 Platelets (Bld) [#/Vol] 246 10*3/uL 150-450 [facility] Work Phone: Serum or plasma calcium milagros urement (mass/volume)on 04-17-2022 Calcium [Mass/Vol] 8.7 mg/dL 8.5-10.1 [facility] Work Phone: Serum or plasma creatinine m easurement (mass/volume)on 04-17-2022 Creatinine [Mass/Vol] 0.82 mg/dL 0.55-1.02 [facility] Work Phone: Comment on above: The validity of the calculated GFR & GFRAA in patients over 70 years has not been determined. Clinical correlation is essential. Serum or plasma urea nitroge n measurement (mass/volume)on 04-17-2022 Urea nitrogen [Mass/Vol] 20 mg/dL 7-18 [facility] Work Phone: Thin prep Papanicolaou smear with manual screeningon 04-17-2022 Thin prep Papanicolaou smear with manual screening 5 5-15 [facility] Work Phone: Basophil percentageon 2021 Chloride [Moles/Vol] 111 mmol/L 98-107 [facility] Work Phone: Glucose [Mass/Vol] 90 mg/dL 74-106 [facility] Work Phone: Potassium [Moles/Vol] 4.2 mmol/L 3.5-5.1 [facility] Work Phone: Sodium [Moles/Vol] 141 mmol/L 136-145 [facility] Work Phone: WBC (Bld) [#/Vol] 5.9 10*3/uL 4.4-11.0 [facility] Work Phone: Blood erythrocytes count (nu mber/volume)on 04-03-2022 RBC (Bld) [#/Vol] 4.13 10*6/uL 4.2-5.4 [facility] Work Phone: Blood hemoglobin measurement (mass/volume)on 04-03-2022 Hemoglobin (Bld) [Mass/Vol] 11.6 g/dL 12.0-15.0 [facility] Work Phone: Blood platelet mean volumeon 04-03-2022 Platelet mean volume (Bld) [Entitic vol] 10.1 fL 6.2-12.0 [facility] Work Phone: Determination of erythrocyte mean corpuscular volume (MCV)on 04-03-2022 MCV (RBC) [Entitic vol] 89.6 fL 81-99 [facility] Work Phone: Hematocrit Auto (Bld) [Volum e fraction]on 04-03-2022 Hematocrit (Bld) [Volume fraction] 37.0 % 37-47 [facility] Work Phone: Laboratory - Chemistry and C hemistry - challengeon 04-03-2022 CO2 [Moles/Vol] 26.0 mmol/L 21.0-32.0 [facility] Work Phone: Urea nitrogen/Creatinine [Mass ratio] 21.2 mg/mg 10-20 [facility] Work Phone: Laboratory - Hematology and Cell countson 04-03-2022 Erythrocyte distribution width (RBC) [Entitic vol] 50.1 fL 35.1-43.9 [facility] Work Phone: Erythrocyte distribution width (RBC) [Ratio] 15.1 % 11.6-14.6 [facility] Work Phone: MCH (RBC) [Entitic mass] 28.1 pg 27.0-32.0 [facility] Work Phone: MCHC Auto (RBC) [Mass/Vol]on 04-03-2022 MCHC (RBC) [Mass/Vol] 31.4 g/dL 32-36 [facility] Work Phone: No Panel Informationon 04-03 Estimated GFR (MDRD) Amer 94 mL/min >60 [facility] Work Phone: Comment on above: GFR Calc Estimated GFR (MDRD) Non-Af Amer 78 mL/min >60 [facility] Work Phone: Comment on above: Non- GFR Calc Platelets bldon 04-03-2022 Platelets (Bld) [#/Vol] 254 10*3/uL 150-450 [facility] Work Phone: Serum or plasma calcium milagros urement (mass/volume)on 04-03-2022 Calcium [Mass/Vol] 9.0 mg/dL 8.5-10.1 [facility] Work Phone: Serum or plasma creatinine m easurement (mass/volume)on 04-03-2022 Creatinine [Mass/Vol] 0.75 mg/dL 0.55-1.02 [facility] Work Phone: Comment on above: The validity of the calculated GFR & GFRAA in patients over 70 years has not been determined. Clinical correlation is essential. Serum or plasma urea nitroge n measurement (mass/volume)on 04-03-2022 Urea nitrogen [Mass/Vol] 16 mg/dL 7-18 [facility] Work Phone: Thin prep Papanicolaou smear with manual screeningon 04-03-2022 Thin prep Papanicolaou smear with manual screening 4 5-15 [facility] Work Phone: Basophil percentageon 2021 Chloride [Moles/Vol] 107 mmol/L 98-107 [facility] Work Phone: Glucose [Mass/Vol] 90 mg/dL 74-106 [facility] Work Phone: Potassium [Moles/Vol] 4.2 mmol/L 3.5-5.1 [facility] Work Phone: Sodium [Moles/Vol] 142 mmol/L 136-145 [facility] Work Phone: WBC (Bld) [#/Vol] 6.1 10*3/uL 4.4-11.0 [facility] Work Phone: Blood erythrocytes count (nu mber/volume)on 03-20-2022 RBC (Bld) [#/Vol] 4.07 10*6/uL 4.2-5.4 [facility] Work Phone: Blood hemoglobin measurement (mass/volume)on 03-20-2022 Hemoglobin (Bld) [Mass/Vol] 11.5 g/dL 12.0-15.0 [facility] Work Phone: Blood platelet mean volumeon 03-20-2022 Platelet mean volume (Bld) [Entitic vol] 9.8 fL 6.2-12.0 [facility] Work Phone: Determination of erythrocyte mean corpuscular volume (MCV)on 03-20-2022 MCV (RBC) [Entitic vol] 88.7 fL 81-99 [facility] Work Phone: Hematocrit Auto (Bld) [Volum e fraction]on 03-20-2022 Hematocrit (Bld) [Volume fraction] 36.1 % 37-47 [facility] Work Phone: Laboratory - Chemistry and C hemistry - challengeon 03-20-2022 CO2 [Moles/Vol] 27.0 mmol/L 21.0-32.0 [facility] Work Phone: Urea nitrogen/Creatinine [Mass ratio] 19.5 mg/mg 10-20 [facility] Work Phone: Laboratory - Hematology and Cell countson 03-20-2022 Erythrocyte distribution width (RBC) [Entitic vol] 50.1 fL 35.1-43.9 [facility] Work Phone: Erythrocyte distribution width (RBC) [Ratio] 15.3 % 11.6-14.6 [facility] Work Phone: MCH (RBC) [Entitic mass] 28.3 pg 27.0-32.0 [facility] Work Phone: MCHC Auto (RBC) [Mass/Vol]on 03-20-2022 MCHC (RBC) [Mass/Vol] 31.9 g/dL 32-36 [facility] Work Phone: No Panel Informationon 03-20 Estimated GFR (MDRD) Amer 92 mL/min >60 [facility] Work Phone: Comment on above: GFR Calc Estimated GFR (MDRD) Non-Af Amer 76 mL/min >60 [facility] Work Phone: Comment on above: Non- GFR Calc Platelets bldon 03-20-2022 Platelets (Bld) [#/Vol] 282 10*3/uL 150-450 [facility] Work Phone: Serum or plasma calcium milagros urement (mass/volume)on 03-20-2022 Calcium [Mass/Vol] 8.8 mg/dL 8.5-10.1 [facility] Work Phone: Serum or plasma creatinine m easurement (mass/volume)on 03-20-2022 Creatinine [Mass/Vol] 0.77 mg/dL 0.55-1.02 [facility] Work Phone: Comment on above: The validity of the calculated GFR & GFRAA in patients over 70 years has not been determined. Clinical correlation is essential. Serum or plasma urea nitroge n measurement (mass/volume)on 03-20-2022 Urea nitrogen [Mass/Vol] 15 mg/dL 7-18 [facility] Work Phone: Thin prep Papanicolaou smear with manual screeningon 03-20-2022 Thin prep Papanicolaou smear with manual screening 8 5-15 [facility] Work Phone: Basophil percentageon 2021 Chloride [Moles/Vol] 110 mmol/L 98-107 [facility] Work Phone: Glucose [Mass/Vol] 89 mg/dL 74-106 [facility] Work Phone: Potassium [Moles/Vol] 4.1 mmol/L 3.5-5.1 [facility] Work Phone: Sodium [Moles/Vol] 141 mmol/L 136-145 [facility] Work Phone: WBC (Bld) [#/Vol] 6.7 10*3/uL 4.4-11.0 [facility] Work Phone: Blood erythrocytes count (nu mber/volume)on 03-06-2022 RBC (Bld) [#/Vol] 4.08 10*6/uL 4.2-5.4 [facility] Work Phone: Blood hemoglobin measurement (mass/volume)on 03-06-2022 Hemoglobin (Bld) [Mass/Vol] 11.5 g/dL 12.0-15.0 [facility] Work Phone: Blood platelet mean volumeon 03-06-2022 Platelet mean volume (Bld) [Entitic vol] 10.2 fL 6.2-12.0 [facility] Work Phone: Determination of erythrocyte mean corpuscular volume (MCV)on 03-06-2022 MCV (RBC) [Entitic vol] 89.0 fL 81-99 [facility] Work Phone: Hematocrit Auto (Bld) [Volum e fraction]on 03-06-2022 Hematocrit (Bld) [Volume fraction] 36.3 % 37-47 [facility] Work Phone: Laboratory - Chemistry and C hemistry - challengeon 03-06-2022 CO2 [Moles/Vol] 26.0 mmol/L 21.0-32.0 [facility] Work Phone: Urea nitrogen/Creatinine [Mass ratio] 23.0 mg/mg 10-20 [facility] Work Phone: Laboratory - Hematology and Cell countson 03-06-2022 Erythrocyte distribution width (RBC) [Entitic vol] 49.8 fL 35.1-43.9 [facility] Work Phone: Erythrocyte distribution width (RBC) [Ratio] 15.3 % 11.6-14.6 [facility] Work Phone: MCH (RBC) [Entitic mass] 28.2 pg 27.0-32.0 [facility] Work Phone: MCHC Auto (RBC) [Mass/Vol]on 03-06-2022 MCHC (RBC) [Mass/Vol] 31.7 g/dL 32-36 [facility] Work Phone: No Panel Informationon 03-06 Estimated GFR (MDRD) Amer 91 mL/min >60 [facility] Work Phone: Comment on above: GFR Calc Estimated GFR (MDRD) Non-Af Amer 75 mL/min >60 [facility] Work Phone: Comment on above: Non- GFR Calc Platelets bldon 03-06-2022 Platelets (Bld) [#/Vol] 248 10*3/uL 150-450 [facility] Work Phone: Serum or plasma calcium milagros urement (mass/volume)on 03-06-2022 Calcium [Mass/Vol] 8.8 mg/dL 8.5-10.1 [facility] Work Phone: Serum or plasma creatinine m easurement (mass/volume)on 03-06-2022 Creatinine [Mass/Vol] 0.78 mg/dL 0.55-1.02 [facility] Work Phone: Comment on above: The validity of the calculated GFR & GFRAA in patients over 70 years has not been determined. Clinical correlation is essential. Serum or plasma urea nitroge n measurement (mass/volume)on 03-06-2022 Urea nitrogen [Mass/Vol] 18 mg/dL 7-18 [facility] Work Phone: Thin prep Papanicolaou smear with manual screeningon 03-06-2022 Thin prep Papanicolaou smear with manual screening 5 5-15 [facility] Work Phone: Basophil percentageon 2021 Chloride [Moles/Vol] 111 mmol/L 98-107 [facility] Work Phone: Glucose [Mass/Vol] 85 mg/dL 74-106 [facility] Work Phone: Potassium [Moles/Vol] 4.1 mmol/L 3.5-5.1 [facility] Work Phone: Sodium [Moles/Vol] 143 mmol/L 136-145 [facility] Work Phone: WBC (Bld) [#/Vol] 7.0 10*3/uL 4.4-11.0 [facility] Work Phone: Blood erythrocytes count (nu mber/volume)on 02-20-2022 RBC (Bld) [#/Vol] 4.62 10*6/uL 4.2-5.4 [facility] Work Phone: Blood hemoglobin measurement (mass/volume)on 02-20-2022 Hemoglobin (Bld) [Mass/Vol] 12.8 g/dL 12.0-15.0 [facility] Work Phone: Blood platelet mean volumeon 02-20-2022 Platelet mean volume (Bld) [Entitic vol] 10.0 fL 6.2-12.0 [facility] Work Phone: Determination of erythrocyte mean corpuscular volume (MCV)on 02-20-2022 MCV (RBC) [Entitic vol] 88.5 fL 81-99 [facility] Work Phone: Hematocrit Auto (Bld) [Volum e fraction]on 02-20-2022 Hematocrit (Bld) [Volume fraction] 40.9 % 37-47 [facility] Work Phone: Laboratory - Chemistry and C hemistry - challengeon 02-20-2022 CO2 [Moles/Vol] 26.0 mmol/L 21.0-32.0 [facility] Work Phone: Urea nitrogen/Creatinine [Mass ratio] 23.3 mg/mg 10-20 [facility] Work Phone: Laboratory - Hematology and Cell countson 02-20-2022 Erythrocyte distribution width (RBC) [Entitic vol] 49.1 fL 35.1-43.9 [facility] Work Phone: Erythrocyte distribution width (RBC) [Ratio] 15.1 % 11.6-14.6 [facility] Work Phone: MCH (RBC) [Entitic mass] 27.7 pg 27.0-32.0 [facility] Work Phone: MCHC Auto (RBC) [Mass/Vol]on 02-20-2022 MCHC (RBC) [Mass/Vol] 31.3 g/dL 32-36 [facility] Work Phone: No Panel Informationon 02-20 Estimated GFR (MDRD) Amer 98 mL/min >60 [facility] Work Phone: Comment on above: GFR Calc Estimated GFR (MDRD) Non-Af Amer 81 mL/min >60 [facility] Work Phone: Comment on above: Non- GFR Calc Platelets bldon 02-20-2022 Platelets (Bld) [#/Vol] 275 10*3/uL 150-450 [facility] Work Phone: Serum or plasma calcium milagros urement (mass/volume)on 02-20-2022 Calcium [Mass/Vol] 9.0 mg/dL 8.5-10.1 [facility] Work Phone: Serum or plasma creatinine m easurement (mass/volume)on 02-20-2022 Creatinine [Mass/Vol] 0.73 mg/dL 0.55-1.02 [facility] Work Phone: Comment on above: The validity of the calculated GFR & GFRAA in patients over 70 years has not been determined. Clinical correlation is essential. Serum or plasma urea nitroge n measurement (mass/volume)on 02-20-2022 Urea nitrogen [Mass/Vol] 17 mg/dL 7-18 [facility] Work Phone: Thin prep Papanicolaou smear with manual screeningon 02-20-2022 Thin prep Papanicolaou smear with manual screening 6 5-15 [facility] Work Phone: Basophil percentageon 2021 Chloride [Moles/Vol] 107 mmol/L 98-107 [facility] Work Phone: Glucose [Mass/Vol] 84 mg/dL 74-106 [facility] Work Phone: Potassium [Moles/Vol] 4.1 mmol/L 3.5-5.1 [facility] Work Phone: Sodium [Moles/Vol] 138 mmol/L 136-145 [facility] Work Phone: WBC (Bld) [#/Vol] 4.3 10*3/uL 4.4-11.0 [facility] Work Phone: Blood erythrocytes count (nu mber/volume)on 02-07-2022 RBC (Bld) [#/Vol] 4.53 10*6/uL 4.2-5.4 [facility] Work Phone: Blood hemoglobin measurement (mass/volume)on 02-07-2022 Hemoglobin (Bld) [Mass/Vol] 12.6 g/dL 12.0-15.0 [facility] Work Phone: Blood platelet mean volumeon 02-07-2022 Platelet mean volume (Bld) [Entitic vol] 10.3 fL 6.2-12.0 [facility] Work Phone: Determination of erythrocyte mean corpuscular volume (MCV)on 02-07-2022 MCV (RBC) [Entitic vol] 89.0 fL 81-99 [facility] Work Phone: Hematocrit Auto (Bld) [Volum e fraction]on 02-07-2022 Hematocrit (Bld) [Volume fraction] 40.3 % 37-47 [facility] Work Phone: Laboratory - Chemistry and C hemistry - challengeon 02-07-2022 CO2 [Moles/Vol] 24.0 mmol/L 21.0-32.0 [facility] Work Phone: Urea nitrogen/Creatinine [Mass ratio] 21.4 mg/mg 10-20 [facility] Work Phone: Laboratory - Hematology and Cell countson 02-07-2022 Erythrocyte distribution width (RBC) [Entitic vol] 53.2 fL 35.1-43.9 [facility] Work Phone: Erythrocyte distribution width (RBC) [Ratio] 16.2 % 11.6-14.6 [facility] Work Phone: MCH (RBC) [Entitic mass] 27.8 pg 27.0-32.0 [facility] Work Phone: MCHC Auto (RBC) [Mass/Vol]on 02-07-2022 MCHC (RBC) [Mass/Vol] 31.3 g/dL 32-36 [facility] Work Phone: No Panel Informationon 02-07 Estimated GFR (MDRD) Amer 89 mL/min >60 [facility] Work Phone: Comment on above: GFR Calc Estimated GFR (MDRD) Non-Af Amer 74 mL/min >60 [facility] Work Phone: Comment on above: Non- GFR Calc Platelets bldon 02-07-2022 Platelets (Bld) [#/Vol] 226 10*3/uL 150-450 [facility] Work Phone: Serum or plasma calcium milagros urement (mass/volume)on 02-07-2022 Calcium [Mass/Vol] 8.7 mg/dL 8.5-10.1 [facility] Work Phone: Serum or plasma creatinine m easurement (mass/volume)on 02-07-2022 Creatinine [Mass/Vol] 0.79 mg/dL 0.55-1.02 [facility] Work Phone: Comment on above: The validity of the calculated GFR & GFRAA in patients over 70 years has not been determined. Clinical correlation is essential. Serum or plasma urea nitroge n measurement (mass/volume)on 02-07-2022 Urea nitrogen [Mass/Vol] 17 mg/dL 7-18 [facility] Work Phone: Thin prep Papanicolaou smear with manual screeningon 02-07-2022 Thin prep Papanicolaou smear with manual screening 7 5-15 [facility] Work Phone: Basophil percentageon 2021 Chloride [Moles/Vol] 111 mmol/L 98-107 [facility] Work Phone: Glucose [Mass/Vol] 85 mg/dL 74-106 [facility] Work Phone: Potassium [Moles/Vol] 4.2 mmol/L 3.5-5.1 [facility] Work Phone: Sodium [Moles/Vol] 141 mmol/L 136-145 [facility] Work Phone: WBC (Bld) [#/Vol] 5.2 10*3/uL 4.4-11.0 [facility] Work Phone: Blood erythrocytes count (nu mber/volume)on 01-30-2022 RBC (Bld) [#/Vol] 4.34 10*6/uL 4.2-5.4 [facility] Work Phone: Blood hemoglobin measurement (mass/volume)on 01-30-2022 Hemoglobin (Bld) [Mass/Vol] 12.4 g/dL 12.0-15.0 [facility] Work Phone: Blood platelet mean volumeon 01-30-2022 Platelet mean volume (Bld) [Entitic vol] 9.9 fL 6.2-12.0 [facility] Work Phone: Determination of erythrocyte mean corpuscular volume (MCV)on 01-30-2022 MCV (RBC) [Entitic vol] 89.6 fL 81-99 [facility] Work Phone: Hematocrit Auto (Bld) [Volum e fraction]on 01-30-2022 Hematocrit (Bld) [Volume fraction] 38.9 % 37-47 [facility] Work Phone: Laboratory - Chemistry and C hemistry - challengeon 01-30-2022 CO2 [Moles/Vol] 26.0 mmol/L 21.0-32.0 [facility] Work Phone: Urea nitrogen/Creatinine [Mass ratio] 18.1 mg/mg 10-20 [facility] Work Phone: Laboratory - Hematology and Cell countson 01-30-2022 Erythrocyte distribution width (RBC) [Entitic vol] 51.9 fL 35.1-43.9 [facility] Work Phone: Erythrocyte distribution width (RBC) [Ratio] 15.7 % 11.6-14.6 [facility] Work Phone: MCH (RBC) [Entitic mass] 28.6 pg 27.0-32.0 [facility] Work Phone: MCHC Auto (RBC) [Mass/Vol]on 01-30-2022 MCHC (RBC) [Mass/Vol] 31.9 g/dL 32-36 [facility] Work Phone: No Panel Informationon 01-30 Estimated GFR (MDRD) Amer 92 mL/min >60 [facility] Work Phone: Comment on above: GFR Calc Estimated GFR (MDRD) Non-Af Amer 76 mL/min >60 [facility] Work Phone: Comment on above: Non- GFR Calc Platelets bldon 01-30-2022 Platelets (Bld) [#/Vol] 266 10*3/uL 150-450 [facility] Work Phone: Serum or plasma calcium milagros urement (mass/volume)on 01-30-2022 Calcium [Mass/Vol] 8.6 mg/dL 8.5-10.1 [facility] Work Phone: Serum or plasma creatinine m easurement (mass/volume)on 01-30-2022 Creatinine [Mass/Vol] 0.77 mg/dL 0.55-1.02 [facility] Work Phone: Comment on above: The validity of the calculated GFR & GFRAA in patients over 70 years has not been determined. Clinical correlation is essential. Serum or plasma urea nitroge n measurement (mass/volume)on 01-30-2022 Urea nitrogen [Mass/Vol] 14 mg/dL 7-18 [facility] Work Phone: Thin prep Papanicolaou smear with manual screeningon 01-30-2022 Thin prep Papanicolaou smear with manual screening 4 5-15 [facility] Work Phone: Vital Signs Date Time Vital Sign Value Performing Clinician Faraz cuello 12-31-2022 21:32-0400 Diastolic blood pressure 63 mm[Hg] Dr. Jaki Anderson Work Phone: [facility] 12-31-2022 21:32-0400 Heart rate 82 /min Dr. Jaki Anderson Work Phone: [facility] 12-31-2022 21:32-0400 Respiratory rate 16 /min Dr. Jaki Anderson Work Phone: [facility] 12-31-2022 21:32-0400 SaO2% (BldA) [Mass fraction] 95 % Dr. Jaki Anderson Work Phone: [facility] 12-31-2022 21:32-0400 Systolic blood pressure 139 mm[Hg] Dr. Jaki Anderson Work Phone: [facility] 12-31-2022 16:12-0400 Body height 175.[address] Jaki Anderson Work Phone: [facility] 12-31-2022 16:12-0400 Body mass index (BMI) [Ratio] 28.3 kg/m2 Dr. Jaki Anderson Work Phone: [facility] 12-31-2022 16:12-0400 Body temperature 97.1 [degF] Dr. Jaki Anderson Work Phone: [facility] 12-31-2022 16:12-0400 Body weight 87.[address] Jaki Anderson Work Phone: [facility] Encounters Encounter Date Encounter Type Care Provider Facility Start: 04-14-2025 ambulatory Jose Raul Ritter cility:[facility] Start: 04-14-2025 Registered Referred Jose Raul Pulliam MD [facility] Start: 03-10-2025 End: 03-10-[address] Jaki Anderson MD Work Phone: [facility] Start: 03-10-2025 End: 03-10-[address] Jose Raul Pulliam MD -[facility] Work Phone: Start: 02-24-2025 End: 02-24-[address] Jaki Anderson MD Work Phone: [facility] Start: 02-24-2025 End: 02-24-2025 Patient encounter procedure Krissy Alex NP-[facility] Work Phone: Start: 01-27-2025 End: 01-27-[address] Jaki Anderson MD Work Phone: [facility] Start: 01-27-2025 End: 01-27-[address] Jose Raul Pulliam MD -[facility] Work Phone: Start: 12-12-2024 End: 12-12-[address] Jaki Anderson MD Work Phone: [facility] Work Phone: Start: 12-12-2024 End: 12-12-2024 Patient encounter procedure Krissy Alex NP-[facility] Work Phone: Start: 11-11-2024 End: 11-11-[address] Jose Raul Pulliam MD -[facility] Work Phone: Start: 11-11-2024 End: 11-11-[address] Jaki Anderson MD Work Phone: [facility] Work Phone: Start: 11-11-2024 End: 11-11-2024 Departed Referred Jose Raul Pulliam MD [facility] Start: 11-11-2024 End: 11-11-2024 ambulatory Jose Raul MCDERMOTT Facility:[facility] Start: 10-13-2024 ambulatory Jose Raul MCDERMOTT Fa cility:[facility] Start: 10-13-2024 [facility] Start: 09-16-2024 End: 09-16-2024 ambulatory Effrankbe Jaqueline Facility:[facility] Start: 09-16-2024 End: 09-16-[address] Jose Raul Pulliam MD -[facility] Work Phone: Start: 09-16-2024 ambulatory Efdiandracarolynbe Carltonjocelyne OLS Fa cility:[facility] Start: 09-16-2024 [facility] Start: 08-19-2024 End: 08-19-2024 Departed Referred Jose Raul Pulliam MD [facility] Start: 08-19-2024 End: 08-19-2024 ambulatory Jaki Anderson Facility:[facility] Start: 07-22-2024 End: 07-22-2024 ambulatory Efewongbe Oleghe Facility:[facility] Start: 07-22-2024 End: 07-22-2024 ambulatory Efewongbe Oleghe OLS Facility:[facility] Start: 06-26-2024 End: 06-26-2024 ambulatory Jakidanielle Anderson [facility] Start: 06-24-2024 End: 06-24-2024 ambulatory Efewongbe Oleghe OLS Facility:[facility] Start: 05-27-2024 ambulatory Efewongbe Oleghe OLS Fa cility:[facility] Start: 05-13-2024 End: 05-13-2024 ambulatory Efewongbe Oleghe [facility] Start: 04-29-2024 ambulatory Efewongbe Oleghe OLS Fa cility:[facility] Start: 12-11-2023 End: 12-11-[address] Jaki Anderson Work Phone: [facility] Work Phone: Start: 12-11-2023 End: 12-11-[address] Jaki Anderson Work Phone: [facility] Start: 11-27-2023 End: 11-27-[address] Jaki Anderson Work Phone: [facility] Work Phone: Start: 11-27-2023 End: 11-27-[address] Jaki Anderson Work Phone: [facility] Start: 11-27-[address] Jaki Anderson Work Phone: [facility] Start: 11-20-2023 End: 11-20-[address] Jaki Anderson Work Phone: [facility] Work Phone: Start: 11-13-2023 End: 11-13-[address] Jaki Anderson Work Phone: [facility] Work Phone: Start: 11-13-2023 End: 11-13-[address] Jaki Anderson Work Phone: [facility] Start: 11-13-[address] Jaki Anderson Work Phone: [facility] Start: 10-30-2023 End: 10-30-[address] Jaki Anderson Work Phone: [facility] Work Phone: Start: 10-30-2023 End: 10-30-[address] Jaki Anderson Work Phone: [facility] Start: 10-30-[address] Jaki Anderson Work Phone: [facility] Start: 10-16-2023 End: 10-16-[address] Jaki Anderson Work Phone: [facility] Work Phone: Start: 10-16-2023 End: 10-16-[address] Jaki Anderson Work Phone: [facility] Start: 10-16-[address] Jaki Anderson Work Phone: [facility] Start: 10-11-2023 End: 10-11-[address] Jaki Anderson Work Phone: [facility] Work Phone: Start: 10-02-2023 End: 10-02-[address] Jaki Anderson Work Phone: [facility] Work Phone: Start: 10-02-2023 End: 10-02-[address] Jaki Anderson Work Phone: [facility] Start: 10-02-[address] Jaki Anderson Work Phone: [facility] Start: 09-18-2023 End: 09-18-[address] Jaki Anderson Work Phone: [facility] Work Phone: Start: 09-18-2023 End: 09-18-[address] Jaki Anderson Work Phone: [facility] Start: 09-18-[address] Jaki Anderson Work Phone: [facility] Start: 09-11-2023 End: 09-11-[address] Jaki Anderson Work Phone: [facility] Work Phone: Start: 09-04-2023 End: 09-04-[address] Jaki Anderson Work Phone: [facility] Work Phone: Start: 09-04-2023 End: 09-04-[address] Jaki Anderson Work Phone: [facility] Start: 08-23-2023 End: 08-23-[address] Jaki Anderson Work Phone: [facility] Work Phone: Start: 08-21-2023 End: 08-21-[address] Jaki Anderson Work Phone: [facility] Work Phone: Start: 08-21-2023 End: 08-21-[address] Jaki Anderson Work Phone: [facility] Start: 08-21-[address] Jaki Anderson Work Phone: [facility] Start: 08-07-2023 End: 08-07-[address] Jaki Anderson Work Phone: [facility] Work Phone: Start: 08-07-2023 End: 08-07-[address] Jaki Anderson Work Phone: [facility] Start: 07-23-2023 End: 07-23-[address] Jaki Anderson Work Phone: [facility] Work Phone: Start: 07-23-2023 End: 07-23-[address] Jaki Anderson Work Phone: [facility] Start: 07-17-2023 End: 07-17-[address] Jaki Anderson Work Phone: [facility] Work Phone: Start: 07-09-2023 End: 07-09-[address] Jaki Anderson Work Phone: [facility] Work Phone: Start: 07-09-2023 End: 07-09-[address] Jaki Anderson Work Phone: [facility] Start: 06-25-2023 End: 06-25-[address] Jaki Anderson Work Phone: [facility] Work Phone: Start: 06-25-2023 End: 06-25-[address] Jaki Anderson Work Phone: [facility] Start: 06-11-2023 End: 06-11-[address] Jaki Anderson Work Phone: [facility] Start: 05-28-2023 End: 05-28-[address] Jaki Anderson Work Phone: [facility] Start: 05-28-[address] Jaki Anderson Work Phone: [facility] Start: 05-15-2023 End: 05-15-[address] Jaki Anderson Work Phone: [facility] Work Phone: Start: 05-09-2023 End: 05-09-[address] Jaki Anderson Work Phone: [facility] Work Phone: Start: 04-30-2023 End: 04-30-[address] Jaki Anderson Work Phone: [facility] Work Phone: Start: 04-30-2023 End: 04-30-[address] Jaki Anderson Work Phone: [facility] Start: 04-30-[address] Jaki Anderson Work Phone: [facility] Start: 04-16-2023 End: 04-16-[address] Jaki Anderson Work Phone: [facility] Work Phone: Start: 04-16-2023 End: 04-16-[address] Jaki Anderson Work Phone: [facility] Start: 04-16-[address] Jaki Anderson Work Phone: [facility] Start: 04-02-2023 End: 04-02-[address] Jaki Anderson Work Phone: [facility] Work Phone: Start: 04-02-2023 End: 04-02-[address] Jaki Anderson Work Phone: [facility] Start: 04-02-[address] Jaki Anderson Work Phone: [facility] Start: 03-20-2023 End: 03-20-[address] Jaki Anderson Work Phone: [facility] Work Phone: Start: 03-19-2023 End: 03-19-[address] Jaki Anderson Work Phone: [facility] Work Phone: Start: 03-19-2023 End: 03-19-[address] Jaki Anderson Work Phone: [facility] Start: 03-19-[address] Jaki Anderson Work Phone: [facility] Start: 03-05-2023 End: 03-05-[address] Jaki Anderson Work Phone: [facility] Work Phone: Start: 03-05-2023 End: 03-05-[address] Jaki Anderson Work Phone: [facility] Start: 03-05-[address] Jaki Anderson Work Phone: [facility] Start: 02-20-2023 End: 02-20-[address] Jaki Anderson Work Phone: [facility] Work Phone: Start: 02-20-2023 End: 02-20-[address] Jaki Anderson Work Phone: [facility] Start: 02-20-[address] Jaki Anderson Work Phone: [facility] Start: 02-06-2023 End: 02-06-[address] Jaki Anderson Work Phone: [facility] Work Phone: Start: 02-06-2023 End: 02-06-[address] Jaki Anderson Work Phone: [facility] Start: 02-06-[address] Jaki Anderson Work Phone: [facility] Start: 01-29-2023 End: 01-29-[address] Jaki Anderson Work Phone: [facility] Work Phone: Start: 01-29-2023 End: 01-29-[address] Jaki Anderson Work Phone: [facility] Start: 01-22-2023 End: 01-22-[address] Jaki Anderson Work Phone: [facility] Start: 01-16-2023 End: 01-16-[address] Jaki Anderson Work Phone: [facility] Work Phone: Start: 01-13-2023 End: 01-13-[address] Jaki Anderson Work Phone: [facility] Work Phone: Start: 01-08-2023 End: 01-08-[address] Jaki Anderson Work Phone: [facility] Work Phone: Start: 01-08-2023 End: 01-08-[address] Jaki Anderson Work Phone: [facility] Start: 01-01-2023 End: 01-01-[address] Jaki Anderson Work Phone: [facility] Work Phone: Start: 12-31-2022 End: 12-31-2022 Emergency department patient visit Dr. Jaki Anderson Work Phone: [facility] Start: 12-25-2022 End: 12-25-[address] Jaki Anderson Work Phone: [facility] Work Phone: Start: 12-25-2022 End: 12-25-[address] Jaki Anderson Work Phone: [facility] Start: 12-25-[address] Jaki Anderson Work Phone: [facility] Start: 12-11-2022 End: 12-11-[address] Jaki Anderson Work Phone: [facility] Start: 12-11-[address] Jaki Anderson Work Phone: [facility] Start: 11-28-2022 End: 11-28-[address] Jaki Anderson Work Phone: [facility] Start: 11-27-2022 End: 11-27-[address] Jaki Anderson Work Phone: [facility] Work Phone: Start: 11-27-2022 End: 11-27-[address] Jaki Anderson Work Phone: [facility] Start: 11-27-[address] Jaki Anderson Work Phone: [facility] Start: 11-13-2022 End: 11-13-[address] Jaki Anderson Work Phone: [facility] Work Phone: Start: 11-13-2022 End: 11-13-[address] Jaki Anderson Work Phone: [facility] Start: 10-30-2022 End: 10-30-[address] Jaki Anderson Work Phone: [facility] Start: 10-30-2022 End: 10-30-[address] Jaki Anderson Work Phone: [facility] Start: 10-30-[address] Jaki Anderson Work Phone: [facility] Start: 10-16-2022 End: 10-16-[address] Jaki Anderson Work Phone: [facility] Start: 10-16-2022 End: 10-16-[address] Jaki Anderson Work Phone: [facility] Work Phone: Start: 10-16-2022 End: 10-16-[address] Jaki Anderson Work Phone: [facility] Start: 10-16-[address] Jaki Anderson Work Phone: [facility] Start: 10-02-2022 End: 10-02-[address] Jaki Anderson Work Phone: [facility] Start: 09-25-2022 End: 09-25-[address] Jaki Anderson Work Phone: [facility] Start: 09-18-2022 End: 09-18-[address] Jaki Anderson Work Phone: [facility] Work Phone: Start: 09-18-2022 End: 09-18-[address] Jaki Anderson Work Phone: [facility] Start: 09-18-[address] Jaki Anderson Work Phone: [facility] Start: 09-05-2022 End: 09-05-[address] Jaki Anderson Work Phone: [facility] Work Phone: Start: 09-05-2022 End: 09-05-[address] Jaki Anderson Work Phone: [facility] Start: 09-05-[address] Jaki Anderson Work Phone: [facility] Start: 08-21-2022 End: 08-21-[address] Jaki Anderson Work Phone: [facility] Start: 08-21-[address] Jaki Anderson Work Phone: [facility] Start: 08-07-2022 End: 08-07-[address] Jaki Anderson Work Phone: [facility] Work Phone: Start: 08-07-2022 End: 08-07-[address] Jaki Anderson Work Phone: [facility] Start: 08-07-[address] Jaki Anderson Work Phone: [facility] Start: 07-24-2022 End: 07-24-[address] Jaki Anderson Work Phone: [facility] Work Phone: Start: 07-24-2022 End: 07-24-[address] Jaki Anderson Work Phone: [facility] Start: 07-24-[address] Jaki Anderson Work Phone: [facility] Start: 07-18-2022 End: 07-18-[address] Jaki Anderson Work Phone: [facility] Start: 07-10-2022 End: 07-10-[address] Jaki Anderson Work Phone: [facility] Work Phone: Start: 07-10-2022 End: 07-10-[address] Jaki Anderson Work Phone: [facility] Start: 07-10-[address] Jaki Anderson Work Phone: [facility] Start: 06-26-2022 End: 06-26-[address] Jaki Anderson Work Phone: [facility] Work Phone: Start: 06-26-2022 End: 06-26-[address] Jaki Anderson Work Phone: [facility] Start: 06-26-[address] Jaki Anderson Work Phone: [facility] Start: 06-15-2022 End: 06-15-[address] Jaki Anderson Work Phone: [facility] Start: 06-12-2022 End: 06-12-[address] Jaki Anderson Work Phone: [facility] Work Phone: Start: 06-12-2022 End: 06-12-[address] Jaki Anderson Work Phone: [facility] Start: 05-29-2022 End: 05-29-[address] Jaki Anderson Work Phone: [facility] Work Phone: Start: 05-29-2022 End: 05-29-[address] Jaki Anderson Work Phone: [facility] Start: 05-29-[address] Jaki Anderson Work Phone: [facility] Start: 05-16-2022 End: 05-16-[address] Jaki Anderson Work Phone: [facility] Work Phone: Start: 05-16-2022 End: 05-16-[address] Jaki Anderson Work Phone: [facility] Start: 05-16-[address] Jaki Anderson Work Phone: [facility] Start: 05-01-2022 End: 05-01-[address] Jaki Anderson Work Phone: [facility] Work Phone: Start: 05-01-2022 End: 05-01-[address] Jaki Anderson Work Phone: [facility] Start: 05-01-[address] Jaki Anderson Work Phone: [facility] Start: 04-17-2022 End: 04-17-[address] Jaki Anderson Work Phone: [facility] Work Phone: Start: 04-17-2022 End: 04-17-[address] Jaki Anderson Work Phone: [facility] Start: 04-03-2022 End: 04-03-[address] Jaki Anderson Work Phone: [facility] Start: 04-03-2022 Registered Referred [facility] Start: 03-22-2022 End: 03-22-[address] Jaki Anderson Work Phone: [facility] Start: 03-20-2022 End: 03-20-2022 Departed Referred [facility] Start: 03-06-2022 End: 03-06-2022 Departed Referred [facility] Start: 02-20-2022 End: 02-20-2022 Departed Referred [facility] Start: 02-20-2022 Registered Referred [facility] Start: 02-07-2022 End: 02-07-2022 Departed Referred [facility] Start: 02-07-2022 Registered Referred [facility] Start: 01-30-2022 End: 01-30-2022 Departed Referred [facility] Start: 01-22-2022 End: 01-22-2022 Emergency department patient visit [facility] Procedures Date Procedure Procedure Detail Performing [...] Date Care Activity Detail Author Start: 12-31-[address] [facility] Start: 12-31-[address] [facility] Bacteria identified in Urine by Culture Urine Culture [facility] Patient Education ED CAREGIVER S UPPORT for DEMENTIA [facility] Work Phone: Patient referral [facility] Work Phone: Immunizations Immunization Date Immunization Notes Care Provider [place] 12-09-2020 Covid (Pfizer) Dr. Jaki maciel Work Phone: [facility] 11-18-2020 Covid (Pfizer) Dr. Jaki maciel Work Phone: [facility] Payers Date Payer Category Payer Unknown [id number] 2024 Medicaid [id number] 2024 Self-pay [id number] Medicare [id number] Unknown [id number] 2.16.8 [id number] Unknown [id number] 2.16.8 [id number] Unknown [id number] 2.16.8 [id number] Unknown [id number] 2.16.8 [id number] Unknown [id number] 2.16.8 [id number] Unknown [id number] 2.16.8 [id number] Unknown [id number] 2.16.8 [id number] Unknown [id number] 2.16.8 [id number] Unknown [id number] 2.16.8 [id number] Unknown [id number] 2.16.8 [id number] Unknown [id number] 2.16.8 [id number] Unknown [id number] 2.16.8 [id number] Unknown [id number] 2.16.8 [id number] Unknown [id number] 2.16.8 [id number] Unknown [id number] 2.16.8 [id number] Unknown [id number] 2.16.8 [id number] Unknown [id number] 2.16.8 [id number] Unknown [id number] 2.16.8 [id number] Social History Date Type Detail Facility Start: 07-06-2020 End: 12-31-2022 Tobacco smoking status ARIS Unknown if ever smoked [facility] Start: 1940 Sex Assigned At Female [facility] Start: 12-31-2022 Tobacco smoking stat us ARIS Never smoked tobacco (finding) [facility] Start: 12-10-2024 Sex Female (finding) [facility] Discharge summary 12-31-2022 Note Date & Type Note Facility 12-31-2022 Discharge summary Note Date/Time December 31, 2022 4:26pm [facility] Medical Records Department [address] [place] [id number] Emergency Department Summary 12/31/22 MR#: [id number] Acct: [id number] Name: TRICIA GAN Rep #:[id number] : 1940 82 From: Jos Dumont MD PCP: Dr. Jaki Anderson MD Status:REG ER Location: ED HPI HPI - Psych History of Present Illness Chief Complaint: Mental Health Narrative Narrative: 82-year-old female past medical history of dementia presents from long-term facility with aggressive behavior that was reported [...] was sent for psychiatric evaluationtoday. [facility] Medical History Abnormal mammogram of right breast Anemia Bone fracture Cataracts, bilateral Dementia Depression Hearing loss History of colon cancer Kidney disease Thyroid disease Home Medications cholecalciferol (vitamin D3) 25 mcg (1,000 unit) capsule 1,000 unit PO DAILY 02/11/19 [History Last Taken Unknown] ghdfnwszsntx-Mv-biqe-minerals 27 mg-0.4 mg tablet 1 ea PO [...] DAILY 12/31/22 [History Last Taken Unknown] vitamins A,C,C-bwrq-lwjmbs 2,148 mcg-113 mg-45 mg-17.4 mg tablet (Eye [...] the patient is a resident of a long-term facility. At this point in time, I do feel she is medically cleared for evaluation by mental health/crisis RN reports that after evaluation, she does not meet any criteria for geriatric psychiatric admission/placement. I do feel that her aggressive behavior is most likely secondary to dementia. At this point in time, she will be discharged back to the long-term facility. Additionally, she had only given a [...] she be discharged. Disposition is discharged to long-term facility in stable condition. History & Record [...] % (Auto) 67.4 Lymph % (Auto) 22.4 [place] % (Auto) 7.2 Eos % (Auto) 2.3 [...] Color Urine Clarity Urine pH Ur Specific [place] Urine Protein Urine Glucose (UA) Urine Ketones [...] (Auto) Neut % (Auto) Lymph % (Auto) [place] % (Auto) Eos % (Auto) Baso % [...] Clarity Clear Urine pH 5.0 Ur Specific [place] 1.030 Urine Protein 30 H Urine Glucose [...] (Auto) Neut % (Auto) Lymph % (Auto) [place] % (Auto) Eos % (Auto) Baso % [...] Clarity Clear Urine pH 5.0 Ur Specific [place] 1.025 Urine Protein Negative Urine Glucose (UA) [...] 100 mg PO DAILY Qty: 30 0RF ogxwstyfldlf-Zw-kmyr-minerals 1 EACH tablet 1 ea PO DAILY [...] MD [Primary Care Provider] - Disposition Disposition: [facility] Discharge Location: [facility] What to do if you have Problems For any increased pain, shortness of breath, bleeding, nausea or vomiting, chestpain, or any unexpected problems, contact your Primary Care Provider. Call [facility] ([phone]) or report to the closest Emergency Room. Call 911 if necessary. 12/31/222112 <Electronically signed by Jos Dumont MD> Cosigner Signature (if applicable): CC: Dr. Jaki Anderson MD ~ Signed [facility] Work Phone: Evaluation note Note Date & Type Note Facility Evaluation note No assessment information availa ble [facility] Work Phone: Hospital Discharge instructions Note Date & Type Note Facility Hospital Discharge instructions Additional Instructions Continue previous medications and activities as previously prescribed. [facility] Work Phone: Reason for referral (narrative) Note Date & Type Note Facility Reason for referral (narrative) No reason for referral information available [facility] Work Phone: Family History No Family History [...] No February 21, 2019 2:51pm Power of Napper Grinder No February 21 2:51pm Advance Directive Response Recorded Date/ Time Living Will No February 21, 2019 1:51pm Power of Napper Grinder No February 21 1:51pm Advance Directive Response Recorded Date/ Time Name of Medical Power of Napper Grinder MENDEZ NEYHARDon-NE PHEW December 31, 2022 4:19pm Living Will Yes December 31, 2022 4:19pm Power of Napper Grinder Yes December 31 4:19pm Advance Directive Response Recorded Date/ Time Living Will Yes December 31, 2022 4:19pm Power of Napper Grinder Yes December 31 4:19pm Advance Directive Response Recorded Date/ Time Living Will Yes December 31, 2022 3:19pm Power of Napper Grinder Yes December 31 3:19pm Advance Directive Response Recorded Date/ Time Living Will Yes October 30 024 10:03am Power of Napper Grinder Yes October 30, 2023 10:03am Advance Directive Response Recorded Date/ Time Living Will Yes October 30 024 11:03am Power of Napper Grinder Yes October 30, 2023 11:03am Chief Complaint and Reason for Visit Chief Complaint LABWORK Chief Complaint LABWORK [facility] Chief Complaint LABWORK [facility] LABWORK Chief Complaint LABWORK [facility] WORK [facility] WORK [facility] LABWORK [facility] MONTHLY EXAM Chief Complaint LABWORK M[facility] LAB WORK [facility] LAB WORK [facility] LABWORK [facility] LABWORK MONTHLY EXAM [facility] LAB[facility] LABWORK Chief Complaint LABWORK M[facility] LAB WORK [facility] LAB WORK [facility]CC LABWORK [facility] LABWORK MONTHLY EXAM [facility] LABWORK LABWORK [facility] LABWORK Chief Complaint M[facility] LAB WOR K [facility] LABWORK [facility] LABWORK MONTHLY EXAM M[facility] LABWORK LABWORK [facility] LABWORK LABWORK Chief Complaint MCC LABWORK [facility] LABWORK MONTHLY EXAM [facility] LABWORK LABWORK [facility] LABWORK LABWORK [facility] LABWORK MONTHLY EXAM Chief Complaint MCC LABWORK MONTHLY EXAM [facility] LABWORK LABWORK [facility] LABWORK LABWORK LABWORK [facility] LABWORK MONTHLY EXAM Chief Complaint LABWORK [facility] LABWORK LABWORK LABWORK [facility] LABWORK MONTHLY EXAM M[facility] LAB WORK LABWORK Chief Complaint LABWORK [facility] LABWORK MONTHLY EXAM M[facility] LAB WORK LABWORK MONTHLY EXAM MCC LABWORK [facility] WORK LABWORK Chief Complaint LABWORK MONTHLY EXAM M[facility] LABWORK [facility] WORK LABWORK LABWORK NEW CONCERN/PROBLEM [facility] WORK MONTHLY EXAM Chief Complaint LABWORK MONTHLY EXAM [facility] LABWORK [facility] WORK LABWORK [facility] WORK LABWORK NEW CONCERN/PROBLEM [facility] WORK MONTHLY EXAM Chief Complaint LABWORK MONTHLY EXAM [facility] LABWORK [facility] WORK LABWORK [facility] WORK LABWORK NEW CONCERN/PROBLEM [facility] LAB WORK [facility] LABWORK MONTHLY EXAM Chief Complaint LABWORK [facility] WORK LABWORK NEW CONCERN/PROBLEM [facility] LAB WORK [facility] LABWORK MONTHLY EXAM [facility] LABWORK MONTHLY EXAM [facility] LABWORK MONTHLY EXAM Chief Complaint LABWORK [facility] WORK LABWORK NEW CONCERN/PROBLEM [facility] LAB WORK [facility] LABWORK MONTHLY EXAM [facility] LABWORK MONTHLY EXAM [facility] LABWORK LABWORK MONTHLY EXAM Chief Complaint [facility] LAB WOR K LABWORK NEW CONCERN/PROBLEM [facility] WORK [facility] LABWORK MONTHLY EXAM [facility] LABWORK MONTHLY EXAM [facility] LABWORK LABWORK MONTHLY EXAM [facility] LABWORK MENTAL HEALTH Chief Complaint [facility] LAB WOR K LABWORK NEW CONCERN/PROBLEM [facility] WORK [facility] LABWORK MONTHLY EXAM [facility] LABWORK MONTHLY EXAM [facility] LABWORK LABWORK MONTHLY EXAM [facility] LABWORK LABWORK MENTAL HEALTH Chief Complaint NEW CONCERN/PROBLEM [facility] WORK [facility] LABWORK MONTHLY EXAM [facility] LABWORK MONTHLY EXAM MCC LABWORK LABWORK MONTHLY EXAM [facility] LABWORK LABWORK MENTAL HEALTH [facility] LABWORK Chief Complaint M[facility] LABWORK MONTHLY EXAM [facility] LABWORK MONTHLY EXAM MCC LABWORK LABWORK MONTHLY EXAM MCC LABWORK LABWORK MENTAL HEALTH [facility] LABWORK LABWORK [facility] LAB WORK Chief Complaint MENTAL HEALTH MONTHLY EXAM M[facility] LABWORK MONTHLY EXAM MONTHLY EXAM LABWORK [facility] LAB WORK [facility] LABWORK MCC LABWORK [facility] LAB WORK [facility] LAB WORK MONTHLY EXAM MCC LABWORK Chief Complaint MCC LABWORK MONTHLY EXAM MONTHLY EXAM LABWORK [facility] LAB WORK [facility]CC LABWORK MCC LABWORK [facility] LAB WORK [facility] LAB WORK MONTHLY EXAM MCC LABWORK [facility] LABWORK Chief Complaint [facility] LAB WOR K [facility] LABWORK [facility] LABWORK [facility] LAB WORK [facility] LAB WORK MONTHLY EXAM MCC LABWORK [facility] LABWORK LABWORK MONTHLY EXAM Chief Complaint MCC LABWORK [facility] LABWORK LABWORK MONTHLY EXAM MONTHLY EXAM [facility] LAB WORK [facility] LABWORK LABWORK [facility] LABWORK Chief Complaint MCC LABWORK LABWORK MONTHLY EXAM MONTHLY EXAM M[facility] LAB WORK [facility] LABWORK LABWORK NEW CONCERN [facility] LABWORK [facility] LAB WORK Chief Complaint MONTHLY EXAM MONTHLY EXAM M[facility] LAB WORK [facility] LABWORK LABWORK NEW CONCERN [facility] LABWORK MONTHLY EXAM M[facility] LAB WORK [facility]CC LABWORK [facility] LAB WORK Chief Complaint MCC LABWORK LABWORK NEW CONCERN [facility] LABWORK MONTHLY EXAM M[facility] LAB WORK [facility]CC LABWORK [facility] LAB WORK MCC LABWORK Chief Complaint MCC LABWORK LABWORK NEW CONCERN [facility] LABWORK MONTHLY EXAM [facility] LAB WORK [facility] LABWORK [facility] LAB WORK MONTHLY EXAM MCC LABWORK [facility]CC LABWORK Chief Complaint MCC LABWORK MONTHLY EXAM [facility] LAB WORK [facility] LABWORK [facility] LAB WORK MONTHLY EXAM [facility] LABWORK MONTHLY EXAM [facility] LABWORK [facility] LAB WORK Chief Complaint M[facility] LABWORK MONTHLY EXAM [facility] LAB WORK [facility] LABWORK [facility] LAB WORK MONTHLY EXAM [facility] LABWORK MONTHLY EXAM MCC LABWORK [facility] LAB WORK LABWORK Chief Complaint M[facility] LAB WOR K [facility] LABWORK [facility] LAB WORK MONTHLY EXAM MCC LABWORK MONTHLY EXAM [facility] LABWORK [facility] LAB WORK LABWORK [facility] LAB WORK Chief Complaint MCC LABWORK [facility] LAB WORK MONTHLY EXAM [facility] LABWORK MONTHLY EXAM [facility] LABWORK [facility] LAB WORK MONTHLY EXAM PA LABWORK [facility] WORK [facility] LAB WORK Chief Complaint MCC LABWORK [facility] LAB WORK MONTHLY EXAM [facility] LABWORK MONTHLY EXAM [facility] LABWORK [facility] WORK MONTHLY EXAM PA LABWORK [facility] WORK [facility] WORK [facility] LAB WORK Chief Complaint M[facility] LAB WOR K MONTHLY EXAM [facility] LABWORK MONTHLY EXAM [facility] LABWORK [facility] WORK MONTHLY EXAM PA LABWORK M[facility] LAB WORK [facility] WORK MONTHLY EXAM MD [facility] WORK [facility] WORK Chief Complaint LABWORK MONTHLY EXAM MONTHLY EXAM [facility] WORK [facility] LABWORK LABWORK NEW CONCERN [facility] LABWORK MONTHLY EXAM [facility] WORK [facility] LABWORK Chief Complaint Admit Date [facility] WORK August 19 5:00am [facility] September 16, 2024 4:35am MONTHLY EXAM September 16, 2024 4: 10pm [facility] October 13, 2024 5:00am LABWORK [...] Primary Care Provider Active Krissy Alex NP NATURAL RESOURCES PROFESSOR-C Attending Provider Active Team Status: Inactive Member [...] Primary Care Provider Active Krissy Alex OLS, NATURAL RESOURCES PROFESSOR-C Attending Provider Active Team Status: Inactive Member [...] 2024 End: December 12, 2024 Krissy Alex NATURAL RESOURCES PROFESSOR, NATURAL RESOURCES PROFESSOR-C Attending Provider Active Start: December 12, 2024 End: December 12, 2024 Team Status: Active Member Role/Relationship Status Dates Dr. Winston Flower MD Family Provider Active Dr. Jaki Anderson MD Primary Care Provider Active Team Status: Inactive Member Role/Relationship Status Dates Dr. Jaki Anderson MD Primary Care Provider Active Start: December 12, 2024 End: December 12, 2024 Krissy Alex NATURAL RESOURCES PROFESSOR, NATURAL RESOURCES PROFESSOR-C Attending Provider Active Start: December 12, 2024 [...] End: February 24, 2025 Krissy Alex NP NATURAL RESOURCES PROFESSOR-C Attending Provider Active Start: February 24, 2025 [...] End: February 24, 2025 Krissy Alex NP NATURAL RESOURCES PROFESSOR-C Attending Provider Active Start: February 24, 2025 [...] section and content) DATE CREATED AUTHOR 04/25/2025 [facility] FOR RECORDS PERTAINING TO PATIENTS WHO [...] BE BASED ON THE PRIMARY CLINICAL RECORDS. [employer] provides no warranty or guarantee of the accuracy or completeness of information in this document.
[2025-04-25 18:52] LABS: Color, Urine Yellow (Yellow); Glucose, Dipstick Normal (Normal); Ketone-Dipstick Negative (Negative); Leukocyte Esterase-Dipstick 500 /ul (Negative); Nitrite-Dipstick Positive (Negative); Occult Blood-Urine 50 /ul (Negative); Protein-Dipstick 30 mg/dl (Negative); Specific Gravity, Urine 1.020 (1.002-1.030); Urine Bilirubin Dipstick Negative (Negative)
== END ==
LOC: OLS.WHLCAR 18:45
PROVIDERS: PCP Internal Medicine; Visit Provider Internal Medicine
DX: N39.0 Urinary tract infection, site not specified (principal)
CPT/HCPCS: 81002; 87077; 87086; 87088; 87186

== ENCOUNTER → 2025-05-14 03:00 | Outpatient (REF) | payer MEDICARE, MEDICAID, SELFPAY ==
[2025-05-14 17:45] LABS: Mucous, Urine 0 SEEN /hpf (<or=2+)
[2025-05-14 20:56] LABS: Color, Urine Straw (Yellow); Glucose, Dipstick Normal (Normal); Ketone-Dipstick Negative (Negative); Leukocyte Esterase-Dipstick 500 /ul (Negative); Nitrite-Dipstick Negative (Negative); Occult Blood-Urine 25 /ul (Negative); Protein-Dipstick 15 mg/dl (Negative); Specific Gravity, Urine 1.010 (1.002-1.030); Urine Bilirubin Dipstick Negative (Negative)
[2025-05-14 21:20] LABS: Squamous Epithelial Cells - UA 10-25 SEEN /hpf (5-10)
[2025-05-14 21:21] LABS: Red Blood Cells-Urine 0-5 SEEN /hpf (0-5)
== END ==
LOC: OLS.WHLCAR 03:00
PROVIDERS: PCP Internal Medicine; Visit Provider Internal Medicine
DX: N39.0 Urinary tract infection, site not specified (principal)
CPT/HCPCS: 81001; 87086; 87088